=== PATIENT | female | born 1970 | race African-American/Black ===

== ENCOUNTER 2016-05-25 10:11 | Inpatient (IN) | payer MEDICARE, MEDICAID ==
[2016-05-25] MEDS ORDERED: Nitroglycerin 0.4 MG/HR PATCH* (10 MG) TRANSDERM ONE ×2 (10:32→11:10)
[2016-05-25 10:35] LABS: Hematocrit 23 % (35-47); Hemoglobin 7.6 g/dl (12.0-16.0); Mean Corpuscular HGB Conc 34 g/dl (31-36); Mean Corpuscular Hemoglobin 33 pg (27-31); Mean Corpuscular Volume 98 fL (80-97); Mean Platelet Volume 8 um3 (7.4-10.4); Red Blood Count 2.29 10^6/ul (4.0-5.4); Red Cell Distribution Width 16 % (10.5-15); White Blood Count 10.7 10^3/ul (3.5-10.8)
[2016-05-25] MEDS ORDERED: Metoprolol Tartrate IV* 1 MG/ML 5 ML VIAL IV ONE (10:38)
[2016-05-25] MEDS ORDERED: Digoxin IV* 0.5 MG/2 ML AMP (0.25 MG/ML) IV SLOW PU ONE (10:45)
[2016-05-25 10:51] LABS: Albumin 3.7 g/dL (3.2-5.2); BUN/Creatinine Ratio 5.2 (8-20); Calcium 9.2 mg/dL (8.6-10.3); EGFR African American 14.5 (>60); EGFR Non-African American 11.3 (>60); Globulin 3.1 g/dL (2-4); Potassium 3.7 mmol/L (3.5-5.0); Total Bilirubin 0.6 mg/dL (0.2-1.0); Total Protein 6.8 g/dL (6.4-8.9)
[2016-05-25] MEDS ORDERED: Morphine PF AMP (1 MG/ML)* 10 MG/10 ML AMP IV ONE (11:00)
[2016-05-25 11:02] LABS: Troponin I 2.62 ng/mL (<0.04)
[2016-05-25] MEDS ORDERED: Nitroglycerin 2% OINT* 1 GM PAK ONE (11:03)
[2016-05-25] MEDS ORDERED: Morphine INJ* 2 MG/ML 1 ML SYRINGE ONE (11:13)
[2016-05-25] MEDS ORDERED: Morphine INJ* 2 MG/ML 1 ML SYRINGE IV ONE (11:20)
--- NOTE | 2016-05-25 11:37 | RAD ---
INDICATION: Shortness of breath. COMPARISON: Similar chest x-ray dated May 16, 2016 TECHNIQUE: Single AP portable view of the chest was obtained. FINDINGS: Image quality is compromised due to the relative inferiority of a portable chest x-ray. Postoperative findings include sternotomy wires. AED pads are noted on the chest. There is cardiomegaly similar in appearance to the previous chest x-ray. There are bilateral patchy infiltrates. The pulmonary vasculature is indistinct and engorged. Density obscures the left lung base and left hemidiaphragm. Visualized bones are normal for the patient's age. IMPRESSION: Chest x-ray findings are most consistent with cardiogenic pulmonary edema.
[2016-05-25] MEDS ORDERED: Albuterol/Ipratropium NEB.SOL* Albuterol 2.5 MG/Ipratropium 0.5 MG 3 ML INH PRN (12:38)
[2016-05-25] MEDS ORDERED: Metoprolol Tartrate IV* 1 MG/ML 5 ML VIAL IV PRN (12:54)
[2016-05-25] MEDS ORDERED: Famotidine TAB* 20 MG PO ONE (14:00)
[2016-05-25] MEDS: Famotidine TAB* 20 MG PO SCH (15:23)
[2016-05-25] MEDS: Gabapentin CAP(*) 100 MG PO SCH ×2 (15:24→20:59)
[2016-05-25] MEDS: oxyCODONE TAB* 5 MG TAB PO PRN ×2 (15:32→21:22)
[2016-05-25] MEDS: Sevelamer TAB* 800 MG PO SCH ×2 (15:35→20:59)
[2016-05-25] MEDS: Morphine INJ* 2 MG/ML 1 ML SYRINGE IV PRN ×3 (18:26→23:42)
[2016-05-25] MEDS: Heparin VIAL(*) 5000 UNITS/ML VIAL (FIVE THOUSAND) SUBCUT SCH (20:59)
[2016-05-25] MEDS: Nitro Patch/OINT Remove PATCH OFF SCH (21:05)
--- NOTE | 2016-05-26 00:25 | CONS ---
CARDIOLOGY CONSULTATION: DATE OF CONSULT: 05/25/16 REASON FOR CONSULT: Abnormal ECG and congestive heart failure. CHIEF COMPLAINT: Chest pain and shortness of breath. HISTORY OF PRESENT ILLNESS: Ms. 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 The patient was admitted earlier this month with hemoptysis and pulmonary hemorrhage with an INR of 9 with respiratory failure. She required intubation as her INR was reversed and she received antibiotics with improvement. The patient states that she was very thirsty last night and drank a lot of fluids, she started developing chest pain and dyspnea afterwards. She presented for her usual dialysis appointment this morning and was found to be in distress and referred to the emergency room. In the emergency room, she was found to be in atrial fibrillation with a rapid ventricular rate and severe ST depression in the inferolateral leads. A STEMI was called; however, it was not completed as she is not a candidate for anticoagulation. In the emergency room, when I saw the patient, she gave the above history and stated she was still in severe chest pain and very short of breath. In discussion with Dr. Osorio, her weight is up 7 kilos since her last dialysis. PAST MEDICAL HISTORY: Long-standing severe hypertension in the past, difficult to control; end-stage renal disease, on hemodialysis, I believe due to hypertensive heart disease; aortic valve replacement in 2012 for endocarditis; atrial fibrillation, it is now chronic; recurrent DVTs and PEs; recent pulmonary hemorrhage with hemoptysis and respiratory failure, admitted May 14 and discharged May 22; mitral insufficiency; COPD; dyslipidemia; coronary artery disease (myocardial infarction 2001 related to cocaine use); diastolic congestive heart failure; superior vena cava syndrome; anxiety and depression. MEDICATIONS AT DISCHARGE: Included: 1. DuoNeb. 2. Maalox. 3. Vitamin E. 4. Spiriva. 5. Enema p.r.n. 6. Renvela 3 times a day with meals. 7. Sertraline 25 mg a day. 8. Lyrica 50 mg a day. 9. Singulair 10 mg a day. 10. Toprol 12.5 mg a day. 11. Diltiazem CD 240 mg a day. 12. Labetalol 400 mg b.i.d. 13. Amlodipine 10 mg a day. 14. Clonidine 0.3 mg b.i.d. 15. Aspirin 81 mg a day. 16. Reglan 10 mg with meals and h.s. 17. Neurontin 100 mg t.i.d. 18. Colace 100 mg b.i.d. 19. Sensipar 30 mg a day. 20. Dulcolax p.r.n. 21. Tessalon Perles 100 mg b.i.d. p.r.n. 22. Oxycodone 5 mg q.6 hours p.r.n. 23. Guaifenesin 1200 mg b.i.d. 24. Nicotine patch 14 mg to right arm. ALLERGIES: Included IODINATED CONTRAST DYE, LISINOPRIL, PENICILLIN, CEPHALOSPORINS, and PROPOFOL. FAMILY HISTORY: The patient was a foster child. History not able to be obtained today. SOCIAL HISTORY: The patient is a recent smoker. No history of alcohol abuse. I believe distant cocaine abuse in looking at old records. REVIEW OF SYSTEMS: The patient was in respiratory distress, had trouble talking , and I was unable to get a comprehensive review of systems, but developed chest pain and dyspnea last night. She states she did not know what to do. She was scared, did not want to be readmitted to the hospital. PHYSICAL EXAM: The patient is a middle-aged woman with a non-rebreather mask in obvious distress. She is sitting bolt upright, appears anxious, very tachypneic and appears uncomfortable. She is 5 feet 9 inches and weighs 180 pounds. Vitals: On arrival to the ER, blood pressure 107/74, AFib with pulse of 148 beats a minute, oxygen saturation 100% on non-breather mask, temperature 98.3. HEENT: Mucous membranes appeared moist through the mask. Neck a bit thick, I did not appreciate increased JVP, but using accessory muscles and probably inaccurate. Breath sounds diminished with coarse rales versus rhonchi throughout. Coronary: Tachycardiac with summation gallop and systolic murmur heard in the left sternal border. Abdomen: Nontender and soft. Lower extremities are free of edema. Fistula not checked. DIAGNOSTIC STUDIES/LAB DATA: The patient's chest x-ray showed marked congestive heart failure/pulmonary edema, very fluffy. The patient's 12-lead ECG showed atrial fibrillation with a rapid ventricular rate of 148 beats a minute with severe ST depressions in the inferior and lateral leads, poor R wave progression across the precordial leads, and when this was compared with her recent EKG of 05/14/16, the atrial fibrillation was present, but the rate has increased from 86 beats a minute and the ST depression is new. The patient's echocardiogram from 05/14/16 was limited. She had severe left ventricular hypertrophy with an ejection fraction of 60% to 65%. Moderate mitral insufficiency with mild mitral stenosis, bioprosthetic aortic valve with high velocities with possible aortic valve stenosis versus valve mismatch (mean gradient 46 mmHg). Peak velocity across the aortic valve 4.3 meters per second. Dimensionless index close to 0.25. The right ventricular systolic function was mildly reduced. When this EKG was compared with her ECG a year ago , 05/20/15. The bioprosthetic aortic valve was functioning normally with a mean gradient of 28 mmHg. Peak velocity across the aortic valve was 3.5 meters per second. Labs showed white count of 10.7, hemoglobin 7.6, hematocrit 23 (hematocrit May 20 was 25), platelets 195. INR 0.98, PTT 66. Sodium 136, potassium 3.7, chloride 90, bicarb 38, BUN 22, creatinine 4.26, glucose 105, ALT of 11. CPK of 132, MB 7.3. Troponin 2.62 (increased from 0.05 on May 14). BNP of 2786 (increased from 1888 May 14). LDL cholesterol 97. ASSESSMENT AND PLAN: In summary, Juany Joseph is an unfortunate 45-year-old woman with complex medical history presenting with chest pain, dyspnea, in congestive heart failure with atrial fibrillation and rapid ventricular rate, and ECG evidence of ischemia that is a new compared with her ECG of 11 days ago. Her congestive heart failure is likely multifactoria, based on Dr. Osorio's weight, volume overload is a component. Her tachycardia is likely contributing and leading to diastolic and high output congestive heart failure. There appears to be an element of acute ischemia either on the basis of underlying atherosclerotic heart disease, but additionally poor or diminished cardiac output from para-aortic stenosis and aortic valve dysfunction could also contribute or be the entire cause. Congestive heart failure itself or an LV strain could lead to the ECG changes seen. In the ER, she received IV beta clara for rate control and ischemia, which did lead to improvement of heart rate and significant improvement in respiratory distress and pain. I would like the beta clara down to 100 if able. I concur that preload reduction with nitrates may help her symptomatically, and provided her with some low-dose morphine, which may also help with preload reduction in addition to pain control. Dr. Osorio is planning on dialyzing for volume overload. I agree with the interventionalist that she is not a candidate for acute intervention as anticoagulants are contraindicated based on her recent admission with hemoptysis and respiratory failure. For now, we will plan on aggressive beta-blockade preload reduction for symptomatic relief. If her blood pressures remain low, then medications to consider backing off on would be Cardizem and her amlodipine. As BP tolerates I would like to keep her labetalol and clonidine on as these lead to rebound, but alternatively, we could be more aggressive with pure beta clara and decrease these agents. Overall, Ms. Joseph is an extremely high-risk patient with her many medical issues. In terms of her atrial fibrillation and anticoagulation, as above, she is not a candidate despite her chronic AFib and history of DVTs and PEs in the past. I would leave it to the electromyographic technician to decide if reevaluation for pulmonary embolus is indicated and potential need for [place] filters. CC: Dr. Franck Osorio; Intensive Care Unit* [id number]/[facility] #: [id number] MTDD
--- NOTE | 2016-05-26 01:38 | HP ---
ADMISSION HISTORY AND PHYSICAL: DATE OF ADMISSION: 05/25/16 REASON FOR ADMISSION: Shortness of breath. HISTORY OF PRESENT ILLNESS: This patient is a 45-year-old dialysis patient who is well-known to this hospital (with numerous prior admissions), who was most recently discharged from the hospital 3 days ago following an admission for hemoptysis. Now returns with increasing shortness of breath and chest pain ( substernal and positional), with a chest x-ray showing pulmonary edema. The patient states she has been drinking a lot of water because of a dry mouth, and has gained 7 kg since discharge. This patient has multiple medical problems in addition to the end-stage renal disease; these include, hypertension, atrial fibrillation, venous thromboembolism, COPD, and is s/p both mitral and aortic valve repair. Patient was seen by Cardiology service in the emergency department because of rapid Afib (160 bpm), a low BP, and an ECG that showed ST depression across the precordium (probably from LVH). Heart rate was controlled with low-dose beta blockers and digitalis. OUTPATIENT MEDICATIONS: The patient is on numerous medications, includin. Metoprolol succinate 12.5 mg daily. 2. Labetalol 400 mg twice daily. 3. Clonidine 0.3 mg twice daily. 4. Amlodipine 10 mg daily. 5. DuoNebs 3 cc every 6 hours as needed. 6. Spiriva 1 capsule daily. 7. Renvela 4800 mg 3 times a day with meals. 8. Sertraline 25 mg daily. 9. Lyrica 50 mg at bedtime. 10. Singulair 10 mg daily. 11. Reglan 10 mg at bedtime and with meals. 12. Gabapentin 100 mg 3 times daily. 13. Diltiazem CD 240 mg daily. 14. Sensipar 30 mg daily. 15. Aspirin 81 mg daily. 16. Guaifenesin 1200 mg twice daily. 17. Nicotine patch 14 mg to the right arm daily. REVIEW OF SYSTEMS: Noncontributory. PHYSICAL EXAMINATION GENERAL APPEARANCE: The patient is breathing comfortably on oxygen by facemask with pulse ox saturation of 96%. VITAL SIGNS: Temp 97.7, heart rate 110, blood pressure 99/67, respirations 24 and nonlabored. HEENT: Oropharynx clear. NECK: Supple. No jugular venous distention. LUNGS: Thorax: Breath sounds distant, but bilateral crackles noted. No wheezes. CARDIAC: Both systolic and diastolic murmurs heard, but no friction rub. ABDOMEN: Not distended and nontender. EXTREMITIES: No cyanosis, 2+ edema in both legs. ADMISSION LABORATORY DATA: Hemoglobin 7.6, white count 10.7, platelets 195K. BUN 22, creatinine 4.26, troponin 2.62. CK-MB 7.3. BNP 2786. Lactic acid 1.6. Liver enzymes and bilirubin normal as was the sodium and potassium. INR was 0.98 and PTT was 66.3. Chest x-ray showed marked cardiomegaly with bilateral effusions consistent with pulmonary edema. EKG showed atrial fibrillation with a rapid ventricular rate. IMPRESSION: Acute pulmonary edema secondary to poor patient compliance with fluid restriction, combined with rapid AFIB. Chest pain could indicate an underlying pericarditis, but no evicdence for this on physical exam. MANAGEMENT: The patient will be dialyzed immediately after admission, and metoprolol will be used for heart rate control. Will obtain a cardiac ECHO to r /o pericarditis. The antihypertensive medications will not be given today because of the soft blood pressure. TIME SPENT: Critical care time for this patient: 60 minutes. [id number]/[facility] #: [id number] SHI
[2016-05-26] MEDS: Metoprolol Tartrate IV* 1 MG/ML 5 ML VIAL IV PRN ×3 (01:56→13:27)
[2016-05-26] MEDS: oxyCODONE TAB* 5 MG TAB PO PRN ×2 (01:57→18:20)
[2016-05-26] MEDS: Morphine INJ* 2 MG/ML 1 ML SYRINGE IV PRN ×5 (05:31→21:36)
[2016-05-26 06:02] LABS: Hematocrit 23 % (35-47); Hemoglobin 7.5 g/dl (12.0-16.0); Mean Corpuscular HGB Conc 33 g/dl (31-36); Mean Corpuscular Hemoglobin 33 pg (27-31); Mean Corpuscular Volume 98 fL (80-97); Mean Platelet Volume 8 um3 (7.4-10.4); Red Cell Distribution Width 15 % (10.5-15); White Blood Count 6.5 10^3/ul (3.5-10.8)
[2016-05-26 06:15] LABS: BUN/Creatinine Ratio 4.8 (8-20); Calcium 9.5 mg/dL (8.6-10.3); EGFR African American 10.5 (>60); EGFR Non-African American 8.2 (>60)
--- NOTE | 2016-05-26 08:09 | ED ---
Saira Greenwood SooYoung, scribed for Malik Egan MD on 05/25/16 at 1054 . HPI Chest Pain - HPI Summary HPI Summary: A 45 y/o F ASPEN presents to ED with c/c hypotension during dialysis [employer]. According to EMS, pt had CP onset this AM, SOB, and was overloaded with fluid. He notes that at dialysis, they took 2L out. She was hypotensive, tachy ( between 140-160 bpm) on way to ED. In ED, pt is unable to stop shaking, "twitching." She states she hurts all over. Pt was given aspirin [employer]. Pret PMhx : [place], CABG at [facility]. - History of Current Complaint Chief Complaint: EDChestPainROMI Time Seen by Provider: 05/25/16 10:31 Hx Obtained From: Patient, EMS, Medical Records Onset/Duration: Still Present Timing: Constant Current Severity: Severe Pain Intensity: 10 Pain Scale Used: 0-10 Numeric Associated Signs and Symptoms: Positive: Shortness of Breath, Edema - diffuse, Other: - shaking - Additional Pertinent History Primary Care Physician: CORINNA - Allergy/Home Medications Allergies/Adverse Reactions: Allergies Allergy/AdvReac Type Severity Reaction Status Date / Time Iodixanol [From Visipaque] Allergy Severe Airway Verified 01/19/16 12:59 Obstruction Lisinopril Allergy Severe Difficulty Verified 01/19/16 12:59 Breathing Penicillins Allergy Severe HIVES,SWELLING Verified 01/19/16 12:59 THROAT Cephalosporins Allergy not Verified 01/19/16 12:59 specified PMH/Surg Hx/FS Hx/Imm Hx Previously Healthy: No Endocrine/Hematology History: Reports: Hx Anticoagulant Therapy, Hx Blood Transfusions, Hx Unexplained Bleeding Denies: Hx Blood Disorders, Hx Bone Marrow Disease, Hx Diabetes, Hx Systemic Lupus Erythematosus, Hx Sickle Cell Disease, Hx Thyroid Disease, Hx Anemia, Other Endocrine/Hematological Disorders Cardiovascular History: Reports: Hx Cardiomegaly, Hx Congestive Heart Failure, Hx Coronary Artery Disease, Hx Deep Vein Thrombosis, Hx Hypercholesterolemia, Hx Hypertension, Hx Valvular Heart Disease, Other Cardiovascular Problems/ Disorders - 2 artificial heart valves; Hx of endocarditis Denies: Hx Aneurysm, Hx Angina, Hx Angioplasty, Hx Auto Implanted Cardiovert Defib, Hx Cardiac Arrest, Hx Congenital Heart Disease, Hx Embolism, Hx Hypotension, Hx Pacemaker/ICD, Hx Peripheral Vascular Disease, Hx Rheumatic Fever, Hx Syncope Respiratory History: Reports: Hx Asthma, Hx Chronic Obstructive Pulmonary Disease (COPD), Hx Pneumonia, Hx Pulmonary Edema, Hx Pulmonary Embolism, Other Respiratory Problems/Disorders - PULMONARY EDEMA Denies: Hx Chronic Bronchitis, Hx Cystic Fibrosis, Hx Lung Cancer, Hx Pleural Effusion, Hx Seasonal Allergies, Hx Sleep Apnea History: Reports: Hx Chronic Renal Failure, Hx Dialysis - ESRD, [place] ON // FRI, Hx Renal Disease Denies: Hx Benign Prostatic Hyperplasia, Hx Kidney Infection, Hx Kidney Stones, Other Problems/Disorders Musculoskeletal History: Reports: Hx Arthritis Denies: Hx Back Problems, Hx Bursitis, Hx Congenital Bone Abnormalities, Hx Fibromyalgia, Hx Gout, Hx Orthopedic Injury, Hx Osteoporosis, Hx Scoliosis, Hx Tendonitis, Other Musculoskeletal History Sensory History: Reports: Hx Contacts or Glasses - glasses are at home Denies: Hx Hearing Aid Opthamlomology History: Reports: Hx Contacts or Glasses - glasses are at home Neurological History: Denies: Hx Seizures Psychiatric History: Reports: Hx Anxiety, Hx Depression Denies: Hx Attention Deficit Hyperactivity Disorder, Hx Eating Disorder, Hx Panic Disorder, Hx Post Traumatic Stress Disorder, Hx Inpatient Treatment, Hx Community Mental Health Tx, Hx Schizophrenia, Hx Bipolar Disorder, Hx Suicide Attempt, Hx of Violent Episodes Against Others, Hx Substance Abuse, Other Psychiatric Issues/Disorders - Surgical History Surgery Procedure, Year, and Place: bilateral knees, dialysis tube placed in abdomen( out), fistula tube placement in arm for dialysis Lt arm has been revised. waiting out ok to use [id number], open heart valve replacement, hysterectomy Hx Anesthesia Reactions: No - Immunization History Date of Tetanus Vaccine: Unk Date of Influenza Vaccine: Unk Infectious Disease History: No Infectious Disease History: Reports: Hx of Known/Suspected MRSA - Negative this visit Denies: Hx Clostridium Difficile, Hx Hepatitis, Hx Human Immunodeficiency Virus (HIV), Hx Shingles, Hx Tuberculosis, Hx Known/Suspected VRE, Traveled Outside the [place] in Last 30 Days - Family History Known Family History: Positive: None - no malignant hyperthermia. no anesthesia rxn. Family History: No FHx of malignant hyperthermia or anesthesia reaction. - Social History Occupation: Disabled Lives: With Family Alcohol Use: Rare Hx Substance Use: No Substance Use Type: Reports: None Hx Tobacco Use: Yes Smoking Status (MU): Former Smoker Type: Cigarettes Amount Used/How Often: 1/2 PPD Length of Time of Smoking/Using Tobacco: 15 Have You Smoked in the Last Year: Yes Review of Systems Negative: Fever, Chills Negative: Erythema Negative: Sore Throat Positive: Chest Pain Positive: Shortness Of Breath. Negative: Cough Negative: Abdominal Pain, Vomiting, Nausea Negative: dysuria, hematuria Positive: Edema. Negative: Myalgia Negative: Rash Neurological: Other - neg: dizziness All Other Systems Reviewed And Are Negative: Yes Physical Exam - Summary Physical Exam Summary: General: DISTRESSED Cardiovascular: Skin is well perfused Pulmonary: MILD RESPIRATORY DISTRESS, TACHYPNEA, RALES AT BASE OF LUNGS Abdomen: Non-distended Skin: Warm, pink, dry Psych: Normal affect Neuro: A&Ox3 Triage Information Reviewed: Yes Vital Signs On Initial Exam: Initial Vitals Temp Pulse Resp BP Pulse Ox 98.3 F 120 23 107/74 100 05/25/16 10:17 05/25/16 10:17 05/25/16 10:17 05/25/16 10:17 05/25/16 10:17 Vital Signs Reviewed: Yes Diagnostics - Vital Signs Vital Signs Temp Pulse Resp BP Pulse Ox 05/25/16 10:17 98.3 F 120 23 107/74 100 - Laboratory Lab Results: Lab Results 05/25/16 05/25/16 Range/Units 10:25 10:25 WBC 10.7 (3.5-10.8) 10^3/ul RBC 2.29 L (4.0-5.4) 10^6/ul Hgb 7.6 L (12.0-16.0) g/dl Hct 23 L (35-47) % MCV 98 H (80-97) fL MCH 33 H (27-31) pg MCHC 34 (31-36) g/dl RDW 16 H (10.5-15) % Plt Count 195 (150-450) 10^3/ul MPV 8 (7.4-10.4) um3 Neut % (Auto) 77.2 (38-83) % Lymph % (Auto) 9.4 L (25-47) % [place] % (Auto) 11.1 H (1-9) % Eos % (Auto) 1.3 (0-6) % Baso % (Auto) 1.0 (0-2) % Absolute Neuts (auto) 8.3 H (1.5-7.7) 10^3/ul Absolute Lymphs (auto) 1.0 (1.0-4.8) 10^3/ul Absolute Monos (auto) 1.2 H (0-0.8) 10^3/ul Absolute Eos (auto) 0.1 (0-0.6) 10^3/ul Absolute Basos (auto) 0.1 (0-0.2) 10^3/ul Absolute Nucleated RBC 0 10^3/ul Nucleated RBC % 0 INR (Anticoag Therapy) 0.98 (0.89-1.11) APTT 66.3 H (26.0-36.3) seconds Result Diagrams: 05/26/16 05:54 05/26/16 05:54 Lab Statement: Any lab studies that have been ordered have been reviewed, and results considered in the medical decision making process. - Radiology CXR Xray Interpretation: Positive (See Comments) - Cardiomegaly, diffuse pulmonary edema Radiology Interpretation Completed By: Radiologist - Additional Comments Diagnostic Additional Comments: EKG: STEMI; ST deep depression in V4, V5, V6; depression in inferior leads; ST elevation in AVR Chest Pain Course/Dx - Course Course Of Treatment: STEMI called at 1020. No respiratory distress to indicate need for emergent intubation. Per interventional cardiology, can not be stented due to inability for dual platelet therapy/recent pulmonary hemorrhage requiring intubation previously. Cardiology immediately available at bedside - Diagnoses Provider Diagnoses: STEMI (ST elevation myocardial infarction), Fluid overload, Atrial fibrillation with rapid ventricular response, End stage renal disease During the Visit The Following Alert/Code Occurred: STEMI - called at 1020 - Provider Notifications Discussed Care Of Patient With: Dr. Capone, cardiology: Pt cannot be on dual anti-platelet therapy. Dr. Horvath, cardiology: Recommends Digoxin and Lopressor. 1048: Dr. Osorio, nephrology: Recommend emergent dialysis for fluid overload. Dr. Horvath: Discussing pt with Dr. Brown, ICU. No respiratory distress to indicate need for emergent intubation. Instructed by Provider To: Admit As Inpatient - Critical Care Time Critical Care Time: 30-74 min - 45 mins Discharge - Discharge Plan Condition: Critical Disposition: ADMITTED TO [facility] documentation as recorded by the Saira sosa SooYoung accurately reflects the service I personally performed and the decisions made by me, Malik Egan MD.
[2016-05-26] MEDS: Heparin VIAL(*) 5000 UNITS/ML VIAL (FIVE THOUSAND) SUBCUT SCH ×2 (09:47→21:36)
[2016-05-26] MEDS: Montelukast Sodium TAB* 10 MG PO SCH (09:52)
[2016-05-26] MEDS: Cinacalcet TAB* 30 MG PO SCH (09:52)
[2016-05-26] MEDS: Diltiazem CD CAP* 240 MG PO SCH (09:52)
[2016-05-26] MEDS: Sertraline* 25 MG TAB PO SCH (09:52)
[2016-05-26] MEDS: Famotidine TAB* 20 MG PO SCH (09:52)
[2016-05-26] MEDS: Aspirin EC Low Dose* 81 MG TAB.EC PO SCH (09:52)
[2016-05-26] MEDS: Gabapentin CAP(*) 100 MG PO SCH ×3 (09:52→21:36)
[2016-05-26] MEDS: Sevelamer TAB* 800 MG PO SCH ×2 (09:57→12:57)
[2016-05-26] MEDS: Labetalol TAB* 200 MG PO SCH ×2 (11:22→21:35)
--- NOTE | 2016-05-26 12:09 | PN ---
Subjective Date of Service: 05/26/16 - CC: chest pain and short of breath. Interval History: Pt sleeping, per nurse and Dr. Bette Brown, positional CP, increases lying down, persists. Breathing has improved (s/p dialysis, rate control). Medications Active Medications: Albuterol/Ipratropium (Duoneb Neb.Tonya*) 1 neb INH Q6H PRN PRN Reason: SOB/WHEEZING Amlodipine Besylate (Norvasc Tab*) 10 mg PO DAILY [facility] Aspirin (Aspirin Ec Low Dose*) 81 mg PO DAILY [facility] Last Admin: 05/26/16 09:52 Dose: 81 mg Cinacalcet (Sensipar Tab*) 30 mg PO DAILY [facility] Last Admin: 05/26/16 09:52 Dose: 30 mg Clonidine HCl (Catapres Tab*) 0.3 mg PO TID [facility] Diltiazem HCl (Cardizem Cd Cap*) 240 mg PO DAILY [facility] Last Admin: 05/26/16 09:52 Dose: 240 mg Famotidine (Pepcid Tab*) 20 mg PO DAILY [facility] Last Admin: 05/26/16 09:52 Dose: 20 mg Gabapentin (Neurontin Cap(*)) 100 mg PO TID [facility] Last Admin: 05/26/16 09:52 Dose: 100 mg Heparin Sodium (Porcine) (Heparin Vial(*)) 5,000 units SUBCUT Q12HR [facility] Last Admin: 05/26/16 09:47 Dose: 5,000 units Labetalol HCl (Trandate Tab*) 400 mg PO BID [facility] Last Admin: 05/26/16 11:22 Dose: 400 mg Metoprolol Succinate (Toprol Xl Tab*) 12.5 mg PO DAILY [facility] Metoprolol Tartrate (Lopressor Iv*) 5 mg IV Q4H PRN PRN Reason: HEART RATE/PULSE Last Admin: 05/26/16 05:30 Dose: 5 mg Montelukast Sodium (Singulair Tab*) 10 mg PO DAILY [facility] Last Admin: 05/26/16 09:52 Dose: 10 mg Morphine Sulfate (Morphine Inj (Syringe)*) 2 mg IV Q1H PRN PRN Reason: PAIN Oxycodone HCl (Roxycodone Tab*) 5 mg PO Q6H PRN PRN Reason: PAIN - CHEST Last Admin: 05/26/16 01:57 Dose: 5 mg Pharmacy Profile Note (Nitro Patch/Oint Remove*) 1 note PATCH OFF DAILY@2200 [facility] Last Admin: 05/25/16 21:05 Dose: 1 note Sertraline HCl (Zoloft*) 25 mg PO DAILY [facility] Last Admin: 05/26/16 09:52 Dose: 25 mg Sevelamer Carbonate (Renvela Tab*) 4,800 mg PO TID [facility] Last Admin: 05/26/16 09:57 Dose: 4,800 mg Objective Vital Signs: Temp Pulse Resp BP Pulse Ox 97.8 F 119 16 133/108 97 05/26/16 11:29 05/26/16 11:00 05/26/16 11:40 05/26/16 10:00 05/26/16 11:00 Oxygen Devices in Use Now: Nasal Cannula Eyes: PERRLA Ears/Nose/Mouth/Throat: Clear Oropharnyx Neck: Trachea Midline Respiratory: Clear to Auscultation Cardiovascular: - - tachycardic, jan, systolic murmer. Abdominal: - - active BS, soft. Extremities: No Edema Neurological: NL Muscle Strength and Tone Laboratory Results: 05/26/16 05:54 05/26/16 05:54 INR (Anticoag Therapy) 0.98 (0.89-1.11) 05/25/16 10:25 APTT 66.3 seconds (26.0-36.3) H 05/25/16 10:25 Total Bilirubin 0.60 mg/dL (0.2-1.0) 05/25/16 10:25 AST 23 U/L (13-39) 05/25/16 10:25 ALT 11 U/L (7-52) 05/25/16 10:25 Alkaline Phosphatase 60 U/L (34-104) 05/25/16 10:25 CK-MB (CK-2) 7.3 ng/mL (0.6-6.3) H 05/25/16 10:25 B-Natriuretic Peptide 2786 pg/mL (-100) H 05/25/16 10:25 Total Protein 6.8 g/dL (6.4-8.9) 05/25/16 10:25 Albumin 3.7 g/dL (3.2-5.2) 05/25/16 10:25 Globulin 3.1 g/dL (2-4) 05/25/16 10:25 Albumin/Globulin Ratio 1.2 (1-3) 05/25/16 10:25 Diagnostic Imaging: No new imaging today. EKG Data: Monitor: afib, rates 120's. Assessment/Plan 45 yo female, complex and extensive PMHx including ESRD on HD (HTN), chronic afib, AVR, severe LVH with EF 65% and diastolic dysfunction, recent hemoptosis, resp failure with elevated INR, distant Hx DVT's and PE's who presented with CP SOB in decomensated CHF, volume overloaded based on weights, tachycardic and hypotensive. ECG showed severe ST depression and Trop's mildly elevated. Today with dialysis yesterday, rate control with beta clara her dyspnea and BP have improved, CP persists. Points of Discussion: CP and ECG changes: Update ECG, trops, I ordered. Continue with medical management, not an interventional candidate: beta clara , goal of rate below 100 bpm. Positional CP: Differential of pericarditis, CHF, COPD, GERD, musc. skel. and more. Consider limited echo for PC effusion, check ESR/CRP. Volume overload: via renal. CHF: at risk for diastolic CHF, rate control as above, anemia can contribute to high output/diastolic CHF as well.
[2016-05-26] MEDS: cloNIDine TAB* 0.1 MG PO SCH ×2 (12:57→21:35)
--- NOTE | 2016-05-26 13:30 | PN ---
Critical Care Services: Breathing more comfortably but continues to complain of chest pain - worse when lying flat. Vital Signs: Temp Pulse Resp BP SpO2 FiO2 97.8 F 108 20 120/83 96 100 Physical Exam: Gen:Alert, oriented, and breathing comfortably Lungs:Crackles both bases. Cardiac: Systolic and diastolic murmurs (2+), but no friction rub. Extremities: Warm. 2+edema. Fluid Balance (Past 24 Hours): 05/26/16 06:59 Intake Total 470 Balance 470 Weight 188 lb Intake: Oral 470 Other: Estimated Void Date of Last Bowel Movement # Bowel Movements Estimated Stool Amount # Voids NOTE: Dialysis yesterday removed about 3 liters. Labs: 05/26/16 05/26/16 05/26/16 05:54 05:54 12:44 WBC 6.5 Hgb 7.5 Hct 23 Plt Count 187 Sodium 134 Potassium 4.0 Chloride 91 Carbon Dioxide 37 BUN 27 Creatinine 5.63 Glucose 106 Calcium 9.5 Troponin I 16.21 Studies: Repeat ECG - less ST depression than prior ECG. Nutrition: Oral diet Impression: Continuing chest pain with rising troponins suggest an acute coronary syndrome. Plan: 1. Aggressive control of chest pain (with morphine) and heart rate (with metoprolol). Patient is on ASA, but is not a candidate for anticoagulation ( because of recent hemoptysis) or coronary intervention (per cardiology service) . 2. Restart antihypertensive Rx (clonidine, metoprolol, labetalol, amlodipine). Critical Care Time: 40 minutes
[2016-05-26] MEDS: Benzocaine/Menthol LOZ* 1 LOZENGE MT PRN (19:07)
[2016-05-27] MEDS: Nitro Patch/OINT Remove PATCH OFF SCH ×2 (05:53→21:30)
[2016-05-27 05:55] LABS: Comments Flag Yes; Hematocrit 20 % (35-47); Hemoglobin 6.7 g/dl (12.0-16.0); Mean Corpuscular HGB Conc 33 g/dl (31-36); Mean Corpuscular Hemoglobin 33 pg (27-31); Mean Corpuscular Volume 98 fL (80-97); Mean Platelet Volume 8 um3 (7.4-10.4); Red Blood Count 2.05 10^6/ul (4.0-5.4); Red Cell Distribution Width 15 % (10.5-15); White Blood Count 6.7 10^3/ul (3.5-10.8)
[2016-05-27 06:09] LABS: BUN/Creatinine Ratio 5.1 (8-20); Calcium 9.1 mg/dL (8.6-10.3); EGFR African American 6.9 (>60); EGFR Non-African American 5.4 (>60); Potassium 4.5 mmol/L (3.5-5.0)
[2016-05-27 06:21] LABS: Troponin I 11.72 ng/mL (<0.04)
[2016-05-27] MEDS: Benzocaine/Menthol LOZ* 1 LOZENGE MT PRN (06:34)
[2016-05-27] MEDS: Morphine INJ* 2 MG/ML 1 ML SYRINGE IV PRN ×5 (06:35→21:15)
[2016-05-27] MEDS: Sevelamer TAB* 800 MG PO SCH ×3 (06:35→17:03)
--- NOTE | 2016-05-27 08:05 | RAD ---
INDICATION: CHF. Short of breath. COMPARISON: May 25, 2016 TECHNIQUE: An AP portable view obtained at 0610 hours is submitted. FINDINGS: Bones/Soft Tissues: There are no acute bony findings. There is sternotomy Cardiomediastinal: The cardiomediastinal enlarged. The central pulmonary vessels and interstitium are prominent compatible with interstitial congestion. There is no appreciable change. Lungs: There are no infiltrates. Pleura: Small left-sided effusion. Other: None IMPRESSION: VASCULAR CONGESTION WITHOUT SIGNIFICANT INTERVAL CHANGE.
[2016-05-27] MEDS ORDERED: Metoprolol Succinate XL TAB* 25 MG PO SCH (09:00)
[2016-05-27] MEDS: Labetalol TAB* 200 MG PO SCH (10:53)
[2016-05-27] MEDS: amLODIPine TAB* 5 MG PO SCH ×2 (10:54→11:58)
[2016-05-27] MEDS ORDERED: Epoetin Alfa* 20,000 UNITS/ML VIAL - TWENTY THOUSAND - SUBCUT ONE (11:00)
[2016-05-27] MEDS ORDERED: Heparin DIALYSIS ONLY(*) 1,000 UNITS/ML VIAL ONE (11:00)
--- NOTE | 2016-05-27 11:04 | PN ---
Critical Care Services: Patient with probable nonSTEMI - Chest pain now controlled on intermittent morphine. Troponins decreasing, and repeat ECG shows less ST depression. Is hemodynamically stable and tolerating dialysis. Vital Signs: Temp Pulse Resp BP SpO2 FiO2 98.4 F 82 14 130/75 95 100 Physical Exam: Gen:Awake and oriented. Complaining of mouth discomfort (since prior intubation) HEENT:No lesions on tongue or oropharynx Lungs: crackles both bases bilaterally. No wheezes Cardiac: Murmurs as noted previously, and no friction rub. Extremities: Warm., 1-2+ edema. Fluid Balance (Past 24 Hours): 05/27/16 06:59 Intake Total 1350 Output Total 0 Balance 1350 Weight 186 lb Intake: Oral 1350 Output: Urine 0 Other: Estimated Void Small Date of Last Bowel 05/26/2016 Movement # Bowel Movements 1 Estimated Stool Amount Small # Voids 1 Note: Output does not include fluid lost via dialysis. Labs: 05/26/16 05/27/16 05/27/16 12:44 05:40 05:40 WBC 6.7 Hgb 6.7 Hct 20 Plt Count 155 Sodium 133 Potassium 4.5 Chloride 91 L Carbon Dioxide 35 H Anion Gap 7 BUN 41 Creatinine 8.08 Glucose 105 H Calcium 9.1 Troponin I 16.21 11.72 Studies: CXR - Improvement in pulmonary edema when compared to film from 05/25/2016 Nutrition: Oral diet Impression: Probable acute coronary syndrome, with clinical improvement. Patient is not a candidate for coronary intervention because anticoagulation is contraindicated ( due to recent hemoptysis). Plan: 1. Start statin Rx 2. Cardiac ECHO 3. Repeat serum Hb after dialysis and transfuse if Hb < 7 g/dL.
[2016-05-27] MEDS: Aspirin EC Low Dose* 81 MG TAB.EC PO SCH (11:13)
[2016-05-27] MEDS: cloNIDine TAB* 0.1 MG PO SCH ×3 (11:13→21:21)
[2016-05-27] MEDS: Diltiazem CD CAP* 240 MG PO SCH (11:13)
[2016-05-27] MEDS: Sertraline* 25 MG TAB PO SCH (11:13)
[2016-05-27] MEDS: Gabapentin CAP(*) 100 MG PO SCH ×3 (11:13→21:21)
[2016-05-27] MEDS: Famotidine TAB* 20 MG PO SCH (11:13)
[2016-05-27] MEDS: Montelukast Sodium TAB* 10 MG PO SCH (11:13)
[2016-05-27] MEDS: Heparin VIAL(*) 5000 UNITS/ML VIAL (FIVE THOUSAND) SUBCUT SCH ×2 (11:14→21:22)
[2016-05-27] MEDS: Cinacalcet TAB* 30 MG PO SCH (11:20)
[2016-05-27] MEDS ORDERED: Epoetin Alfa* 3,000 UNITS/ML VIAL IV ONE (12:00)
[2016-05-27] MEDS ORDERED: Epoetin Alfa* 2,000 UNITS/ML VIAL IV ONE (12:00)
[2016-05-27] MEDS ORDERED: Epoetin Alfa* 10,000 UNITS/ML VIAL IV ONE (12:00)
[2016-05-27 12:41] LABS: Hematocrit 21 % (35-47); Hemoglobin 6.9 g/dl (12.0-16.0); Mean Corpuscular HGB Conc 34 g/dl (31-36); Mean Corpuscular Hemoglobin 33 pg (27-31); Mean Corpuscular Volume 97 fL (80-97); Mean Platelet Volume 7 um3 (7.4-10.4); Red Blood Count 2.11 10^6/ul (4.0-5.4); Red Cell Distribution Width 15 % (10.5-15); White Blood Count 5.9 10^3/ul (3.5-10.8)
[2016-05-27 12:48] LABS: Comments Flag Yes
--- NOTE | 2016-05-27 13:19 | ECHO ---
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 Technical Comments: The study quality is good. Completed at 1150. Left Ventricle: The left ventricular chamber size is normal. Severe concentric left ventricular hypertrophy is observed. Global left ventricular wall motion and contractility are within normal limits. The estimated ejection fraction is 50-55%. The assessment of diastolic function is non-diagnostic. Left Atrium: The left atrium is moderate to severely dilated. Right Ventricle: The right ventricular cavity size is normal. The right ventricular global systolic function is normal. Right Atrium: The right atrium is moderate to severely dilated. Aortic Valve: There is mild aortic regurgitation. The mean gradient of the aortic valve is 54.16 mmHg. The aortic valve area, by VTI's, is calculated at 1 cm2. The highest aortic valve velocity was obtained with the standard probe from the A3C view. A porcine bio-prosthetic aortic valve is present. The prosthetic aortic valve leaflets are thickened. The bio-prosthetic aortic valve appears stenotic. Mitral Valve: There is mitral annular calcification. The mitral valve leaflets are mildly thickened. There is moderate mitral regurgitation. There is no evidence of mitral stenosis. Tricuspid Valve: The tricuspid valve leaflets are normal. There is moderate to severe tricuspid regurgitation. The tricuspid regurgitant jet is extending to dome (back wall of RA). There is evidence of mild to moderate pulmonary hypertension. There is no tricuspid stenosis. Pulmonic Valve: The pulmonic valve appears normal. There is mild pulmonic regurgitation. There is no pulmonic stenosis. Pericardium: The pericardium appears normal. Aorta: There is mild dilatation of the ascending aorta. There is no dilatation of the aortic arch. There is mild dilatation of the aortic root. Pulmonary Artery: The main pulmonary artery appears normal. Venous: The inferior vena cava is dilated. There is less than 50% respiratory change in the inferior vena cava dimension. Conclusions Severe concentric left ventricular hypertrophy is observed. Global left ventricular wall motion and contractility are within normal limits. The estimated ejection fraction is 50-55%. The right ventricular global systolic function is normal. A porcine bio-prosthetic aortic valve is present. The prosthetic aortic valve leaflets are thickened. There is mild aortic regurgitation. The bio-prosthetic aortic valve appears stenotic and additionally there is probably an element of valve mismatch: mean gradient 54.16 mmHg, GONZALEZ by VTI's, is calculated at 1 cm2. DI 0.32, Acceleration time: 1.5 ms. There is MV sclerosis with moderate mitral regurgitation. There is moderate to severe tricuspid regurgitation. There is evidence of mild to moderate pulmonary hypertension: 48 mHg. The pericardium appears normal. No significant changes c/w echo of 05/14/16. Measurements Name Value Normal Range RVIDd (AP) 2D 3.6 cm (0.9 - 2.6) RVDdMajor (2D) 3.3 cm (2.2 - 4.4) RAd ISD 4CH 7.8 cm (3.4 - 4.9) RA (A4C)W 5 cm (2.9 - 4.6) IVSd (2D) 2.3 cm (0.6 - 1) LVPWd (2D) 2.1 cm (0.6 - 1) LVIDd (2D) 4.1 cm (3.6 - 5.4) LVIDs (2D) 2.8 cm - LV FS (2D) 33 % (25 - 45) Aortic Annulus 2.2 cm (1.4 - 2.6) Ao root diameter (2D) 3.8 cm (2.1 - 3.5) Ascending Ao 3.6 cm (2.1 - 3.4) Aortic arch 2.3 cm (1.8 - 3.4) Descending Ao 1.4 cm - LA dimension (AP) 2D 6.5 cm (2.3 - 3.8) LAd ISD 4CH 8.8 cm (2.9 - 5.3) LA ISD 4CH W 7.1 cm (2.5 - 4.5) Name Value Normal Range LA ESV SP 4CH (A/L) 223 ml - LA ESV SP 2CH (A/L) 280 ml - LA ESV BP (A/L) 253 ml - LA ESV BP (A/L) index 125.78 ml/m2 - LA ESV SP 4CH (MOD) 215 ml - LA ESV SP 2CH (MOD) 278 ml - Name Value Normal Range MV E-wave Vmax 1.9 m/sec - MV deceleration time 195 msec - LV septal e' Vmax 0.11 m/sec - LV lateral e' Vmax 0.1 m/sec - LV E:e' septal ratio 17.27 ratio - LV E:e' lateral ratio 19 ratio - Name Value Normal Range AV Vmax 5.1 m/sec - AV VTI 101.1 cm - AV peak gradient 102.37 mmHg - AV mean gradient 54.16 mmHg - LVOT diameter 2 cm - LVOT Vmax 1.7 m/sec - LVOT VTI 32.1 cm - LVOT peak gradient 11.31 mmHg - LVOT mean gradient 5.77 mmHg - GONZALEZ (continuity Vmax) 1.1 cm2 - GONZALEZ (continuity VTI) 1 cm2 - AR PHT 508 msec - AR peak gradient 64.72 mmHg - Name Value Normal Range TR Vmax 2.8 m/sec - TR peak gradient 33 mmHg - RAP 15 mmHg - RVSP 48 mmHg - IVC diameter 3 cm - Name Value Normal Range PV Vmax 1.5 m/sec - PV peak gradient 9.29 mmHg -
--- NOTE | 2016-05-27 15:11 | CONSULT ---
Subjective Date of Service: 05/27/16 - CC: CP Interval History: Overall much improved, no SOB at the time I saw her, no CP but does require morphine to keep CP free. Medications Active Medications: Albuterol/Ipratropium (Duoneb Neb.Tonya*) 1 neb INH Q6H PRN PRN Reason: SOB/WHEEZING Amlodipine Besylate (Norvasc Tab*) 10 mg PO DAILY [facility] Last Admin: 05/27/16 11:58 Dose: 10 mg Aspirin (Aspirin Ec Low Dose*) 81 mg PO DAILY [facility] Last Admin: 05/27/16 11:13 Dose: 81 mg Atorvastatin Calcium (Lipitor*) 80 mg PO 1700 [facility] Cinacalcet (Sensipar Tab*) 30 mg PO DAILY [facility] Last Admin: 05/27/16 11:20 Dose: 30 mg Clonidine HCl (Catapres Tab*) 0.3 mg PO TID [facility] Last Admin: 05/27/16 14:11 Dose: 0.3 mg Diltiazem HCl (Cardizem Cd Cap*) 240 mg PO DAILY [facility] Last Admin: 05/27/16 11:13 Dose: 240 mg Famotidine (Pepcid Tab*) 20 mg PO DAILY [facility] Last Admin: 05/27/16 11:13 Dose: 20 mg Gabapentin (Neurontin Cap(*)) 100 mg PO TID [facility] Last Admin: 05/27/16 14:11 Dose: 100 mg Heparin Sodium (Porcine) (Heparin Vial(*)) 5,000 units SUBCUT Q12HR [facility] Last Admin: 05/27/16 11:14 Dose: 5,000 units Metoprolol Succinate (Toprol Xl Tab*) 12.5 mg PO DAILY [facility] Last Admin: 05/27/16 11:13 Dose: 12.5 mg Metoprolol Tartrate (Lopressor Iv*) 5 mg IV Q4H PRN PRN Reason: HEART RATE/PULSE Last Admin: 05/26/16 13:27 Dose: 5 mg Montelukast Sodium (Singulair Tab*) 10 mg PO DAILY [facility] Last Admin: 05/27/16 11:13 Dose: 10 mg Morphine Sulfate (Morphine Inj (Syringe)*) 2 mg IV Q1H PRN PRN Reason: PAIN Last Admin: 05/27/16 14:11 Dose: 2 mg Oxycodone HCl (Roxycodone Tab*) 5 mg PO Q6H PRN PRN Reason: PAIN - CHEST Last Admin: 05/26/16 18:20 Dose: 5 mg Pharmacy Profile Note (Nitro Patch/Oint Remove*) 1 note PATCH OFF DAILY@2200 [facility] Last Admin: 05/27/16 05:53 Dose: Not Given Sertraline HCl (Zoloft*) 25 mg PO DAILY [facility] Last Admin: 05/27/16 11:13 Dose: 25 mg Sevelamer Carbonate (Renvela Tab*) 4,800 mg PO AC [facility] Last Admin: 05/27/16 13:41 Dose: Not Given Throat Lozenges (Chloraseptic Harry*) 1 harry MT Q2H PRN PRN Reason: THROAT PAIN Last Admin: 05/27/16 06:34 Dose: 1 harry Home Medications: Montelukast Sodium TAB* [Singulair 10 MG TAB*] 10 mg PO DAILY 06/09/12 [History Confirmed 05/25/16] amLODIPine TAB* [Norvasc TAB*] 10 mg PO DAILY 11/10/14 [History Confirmed ] Docusate CAP* [Colace Cap*] 100 mg PO BID 02/09/15 [History Confirmed 05/25/16] Sertraline* [Zoloft*] 25 mg PO DAILY 02/09/15 [History Confirmed 05/25/16] Vitamin E CAP* 1,000 units PO BID 05/04/15 [History Confirmed 05/25/16] Aspirin EC Low Dose* [Ecotrin EC Low Dose*] 81 mg PO DAILY 09/05/15 [History Confirmed 05/25/16] Metoclopramide TAB* [Reglan TAB*] 10 mg PO ACHS 09/05/15 [History Confirmed ] Cinacalcet TAB* [Sensipar TAB*] 30 mg PO DAILY 05/09/16 [History Confirmed 05/25] Pregabalin CAP(*) [Lyrica CAP(*)] 50 mg PO BEDTIME 05/09/16 [History Confirmed 05/25/16] Review of Systems - Measurements Intake and Output: Intake and Output Last 24 Hours 05/25/16 05/26/16 05/27/16 05/28/16 04:59 04:59 04:59 04:59 Intake Total 370 1150 650 Output Total 0 Balance 370 1150 650 Weight 188 lb 7.924 oz 186 lb 1.122 oz Intake: Oral 370 1150 650 Output: Urine 0 Other: Estimated Void Small Date of Last Bowel 05/26/2016 Movement # Bowel Movements 1 Estimated Stool Amount Small # Voids 1 - Review of Systems Review of Systems Statement: All other review of systems negative, unless stated above. Objective Vital Signs: Temp Pulse Resp BP Pulse Ox 98.1 F 95 22 113/76 98 05/27/16 11:21 05/27/16 13:30 05/27/16 14:11 05/27/16 13:30 05/27/16 13:30 Oxygen Devices in Use Now: Nasal Cannula Appearance: lying in bed 20 degrees, comfortable, more chatty today and calmer. Eyes: PERRLA Ears/Nose/Mouth/Throat: Clear Oropharnyx Neck: Trachea Midline Respiratory: Clear to Auscultation Cardiovascular: - - S1 S2 irregular, 2-3 / 6 late peaking SM RUSB. Abdominal: NL Sounds; No Tenderness; No Distention, No Hepatosplenomegaly, - - active BS, soft. Extremities: No Edema Skin: No Rash or Ulcers Neurological: Alert and Oriented x 3, NL Muscle Strength and Tone Laboratory Results: 05/27/16 12:32 05/27/16 05:40 INR (Anticoag Therapy) 0.98 (0.89-1.11) 05/25/16 10:25 APTT 66.3 seconds (26.0-36.3) H 05/25/16 10:25 Total Bilirubin 0.60 mg/dL (0.2-1.0) 05/25/16 10:25 AST 23 U/L (13-39) 05/25/16 10:25 ALT 11 U/L (7-52) 05/25/16 10:25 Alkaline Phosphatase 60 U/L (34-104) 05/25/16 10:25 CK-MB (CK-2) 7.3 ng/mL (0.6-6.3) H 05/25/16 10:25 B-Natriuretic Peptide 2786 pg/mL (-100) H 05/25/16 10:25 Total Protein 6.8 g/dL (6.4-8.9) 05/25/16 10:25 Albumin 3.7 g/dL (3.2-5.2) 05/25/16 10:25 Globulin 3.1 g/dL (2-4) 05/25/16 10:25 Albumin/Globulin Ratio 1.2 (1-3) 05/25/16 10:25 05/26/16 05/27/16 12:44 05:40 Troponin I 16.21 H* 11.72 H* Diagnostic Imaging: ECHO: severe LVH, EF 55-60%, no abnormal pericardial fluid collection. Moderate to severe , leaflets of her prosthetic valve appear calcified with decreased excursion. EKG Data: Monitor: afib, rates 90's. Assessment/Plan 45 yo female, complex and extensive PMHx including ESRD on HD (HTN), chronic afib, AVR, severe LVH with EF 65% and diastolic dysfunction, recent hemoptosis, resp failure with elevated INR, distant Hx DVT's and PE's who presented with CP SOB in decomensated CHF, volume overloaded based on weights, tachycardic and hypotensive. ECG showed severe ST depression and Trop's mildly elevated initially, peaked at 16. Progressive improvement with dialysis and rate control. Echo today does not show new wall motion abnormalities, confirms severe LVH, prosthetic aortic valve stenosis. Points of Discussion: This note in addition to earlier note today, addressing troponin elevation: CP, elevated troponins and ECG changes: Continue with medical management, not an interventional candidate now due to recent hemoptisis: beta clara, goal of rate below 100 bpm. I will increase metoprolol dose and stop amlodipine. Positional CP: Differential of pericarditis, CHF, COPD, GERD, musc. skel. and more. Echo unrevealing. Volume overload: via renal. CHF: at risk for diastolic CHF, rate control as above, anemia can contribute to high output/diastolic CHF as well. Chronic afib: continue with improved rate control as above, no anticoagulation now re: hemoptysis last month, but prison we should coordinate with pulmonary as to when chronic anticoagulation can be resumed. : The patient's prosthetic AV stenosis is I believe contributing to the patient's CHF, afib and rate control. exterminator termite with elevation in troponins to 16, , we would ideally cath her, but we need to ensure it will be safe wrt CHF and if any sort of intervention is indicated that she can safely tolerate the procedure and medications associated with it.
[2016-05-27] MEDS: Atorvastatin* 80 MG TAB PO SCH (17:03)
[2016-05-27] MEDS: Metoprolol Succinate XL TAB* 25 MG PO SCH (21:21)
[2016-05-28] MEDS: Morphine INJ* 2 MG/ML 1 ML SYRINGE IV PRN ×2 (02:22→06:59)
[2016-05-28 04:47] LABS: Hematocrit 22 % (35-47); Hemoglobin 7.3 g/dl (12.0-16.0); Mean Corpuscular HGB Conc 33 g/dl (31-36); Mean Corpuscular Hemoglobin 33 pg (27-31); Mean Corpuscular Volume 100 fL (80-97); Mean Platelet Volume 8 um3 (7.4-10.4); Red Blood Count 2.21 10^6/ul (4.0-5.4); Red Cell Distribution Width 15 % (10.5-15); White Blood Count 6.8 10^3/ul (3.5-10.8)
[2016-05-28 04:58] LABS: BUN/Creatinine Ratio 4.1 (8-20); Calcium 9.3 mg/dL (8.6-10.3); EGFR African American 9.9 (>60); EGFR Non-African American 7.7 (>60); Potassium 4.2 mmol/L (3.5-5.0)
[2016-05-28 05:03] LABS: Troponin I 8.07 ng/mL (<0.04)
[2016-05-28] MEDS: Metoprolol Succinate XL TAB* 25 MG PO SCH ×2 (10:36→20:40)
[2016-05-28] MEDS: Aspirin EC Low Dose* 81 MG TAB.EC PO SCH (10:36)
[2016-05-28] MEDS: Famotidine TAB* 20 MG PO SCH (10:36)
[2016-05-28] MEDS: Montelukast Sodium TAB* 10 MG PO SCH (10:36)
[2016-05-28] MEDS: Gabapentin CAP(*) 100 MG PO SCH ×3 (10:37→20:38)
[2016-05-28] MEDS: Sertraline* 25 MG TAB PO SCH (10:37)
[2016-05-28] MEDS: Heparin VIAL(*) 5000 UNITS/ML VIAL (FIVE THOUSAND) SUBCUT SCH ×2 (10:40→20:36)
[2016-05-28] MEDS: Sevelamer TAB* 800 MG PO SCH ×3 (11:36→16:57)
[2016-05-28] MEDS: Cinacalcet TAB* 30 MG PO SCH ×2 (11:37→11:56)
[2016-05-28] MEDS: cloNIDine TAB* 0.1 MG PO SCH ×3 (11:37→20:38)
[2016-05-28] MEDS: Diltiazem CD CAP* 240 MG PO SCH ×2 (11:37→11:56)
[2016-05-28] MEDS: LORazepam TAB(*) 1 MG PO PRN (11:50)
[2016-05-28] MEDS: Metoprolol Tartrate IV* 1 MG/ML 5 ML VIAL IV PRN (11:52)
[2016-05-28] MEDS: amLODIPine TAB* 5 MG PO SCH (13:56)
[2016-05-28] MEDS: Benzocaine/Menthol LOZ* 1 LOZENGE MT PRN (15:43)
--- NOTE | 2016-05-28 16:30 | PN ---
Subjective Date of Service: 05/28/16 Interval History: Patient seen and examined at bedside. She is very tearful and emotional about her medical situation. She reports feeling very anxious and asked for anxiety medication. She reports her chest pain feels better and is hoping to go home tomorrow. She denies SOB, except with anxiety. She denies n/v, abd pain. Telemetry: atrial fib 70s Family History: Unchanged from Admission Social History: Unchanged from Admission Past Medical History: Unchanged from Admission Objective Active Medications: Albuterol/Ipratropium (Duoneb Neb.Tonya*) 1 neb INH Q6H PRN PRN Reason: SOB/WHEEZING Amlodipine Besylate (Norvasc Tab*) 2.5 mg PO DAILY [facility] Last Admin: 05/28/16 13:56 Dose: 2.5 mg Aspirin (Aspirin Ec Low Dose*) 81 mg PO DAILY [facility] Last Admin: 05/28/16 10:36 Dose: 81 mg Atorvastatin Calcium (Lipitor*) 80 mg PO 1700 [facility] Last Admin: 05/27/16 17:03 Dose: 80 mg Cinacalcet (Sensipar Tab*) 30 mg PO DAILY [facility] Last Admin: 05/28/16 11:56 Dose: 30 mg Clonidine HCl (Catapres Tab*) 0.3 mg PO TID [facility] Last Admin: 05/28/16 13:57 Dose: 0.3 mg Diltiazem HCl (Cardizem Cd Cap*) 240 mg PO DAILY [facility] Last Admin: 05/28/16 11:56 Dose: 240 mg Famotidine (Pepcid Tab*) 20 mg PO DAILY [facility] Last Admin: 05/28/16 10:36 Dose: 20 mg Gabapentin (Neurontin Cap(*)) 100 mg PO TID [facility] Last Admin: 05/28/16 13:58 Dose: 100 mg Heparin Sodium (Porcine) (Heparin Vial(*)) 5,000 units SUBCUT Q12HR [facility] Last Admin: 05/28/16 10:40 Dose: 5,000 units Lorazepam (Ativan Tab(*)) 1 mg PO Q4H PRN PRN Reason: ANXIETY Last Admin: 05/28/16 11:50 Dose: 1 mg Metoprolol Succinate (Toprol Xl Tab*) 25 mg PO BID [facility] Last Admin: 05/28/16 10:36 Dose: 25 mg Metoprolol Tartrate (Lopressor Iv*) 5 mg IV Q4H PRN PRN Reason: HEART RATE/PULSE Last Admin: 05/28/16 11:52 Dose: 5 mg Montelukast Sodium (Singulair Tab*) 10 mg PO DAILY [facility] Last Admin: 05/28/16 10:36 Dose: 10 mg Morphine Sulfate (Morphine Inj (Syringe)*) 2 mg IV Q1H PRN PRN Reason: PAIN Last Admin: 05/28/16 06:59 Dose: 2 mg Oxycodone HCl (Roxycodone Tab*) 5 mg PO Q6H PRN PRN Reason: PAIN - CHEST Last Admin: 05/26/16 18:20 Dose: 5 mg Pharmacy Profile Note (Nitro Patch/Oint Remove*) 1 note PATCH OFF DAILY@2200 [facility] Last Admin: 05/27/16 21:30 Dose: Not Given Sertraline HCl (Zoloft*) 25 mg PO DAILY [facility] Last Admin: 05/28/16 10:37 Dose: 25 mg Sevelamer Carbonate (Renvela Tab*) 4,800 mg PO AC [facility] Last Admin: 05/28/16 11:55 Dose: 4,800 mg Throat Lozenges (Chloraseptic Harry*) 1 harry MT Q2H PRN PRN Reason: THROAT PAIN Last Admin: 05/28/16 15:43 Dose: 1 harry Vital Signs 05/27/16 05/27/16 05/27/16 16:42 17:54 18:54 Temperature 98.3 F Pulse Rate 81 Respiratory 18 18 18 Rate Blood Pressure 86/51 (mmHg) O2 Sat by Pulse 100 Oximetry 05/27/16 05/27/16 05/27/16 20:00 20:48 21:15 Temperature 98.7 F Pulse Rate 79 Respiratory 16 18 16 Rate Blood Pressure 102/63 (mmHg) O2 Sat by Pulse 96 Oximetry 05/27/16 05/27/16 05/27/16 21:21 22:15 23:21 Temperature Pulse Rate Respiratory 18 18 18 Rate Blood Pressure (mmHg) O2 Sat by Pulse Oximetry 05/28/16 05/28/16 05/28/16 00:05 00:20 02:22 Temperature 98.7 F Pulse Rate 73 78 Respiratory 14 16 16 Rate Blood Pressure 101/77 (mmHg) O2 Sat by Pulse 95 98 Oximetry 0105/28/16 05/28/16 03:22 04:06 06:59 Temperature 98.7 F Pulse Rate 76 Respiratory 18 16 18 Rate Blood Pressure 97/68 (mmHg) O2 Sat by Pulse 100 Oximetry 05/28/16 05/28/16 05/28/16 07:52 07:59 08:00 Temperature 98.6 F Pulse Rate 77 Respiratory 20 16 18 Rate Blood Pressure 88/67 (mmHg) O2 Sat by Pulse 100 Oximetry 05/28/16 05/28/16 05/28/16 10:37 11:38 11:45 Temperature 99.0 F Pulse Rate 170 Respiratory 18 20 Rate Blood Pressure 109/84 (mmHg) O2 Sat by Pulse 78 92 Oximetry 05/28/16 05/28/16 05/28/16 11:50 12:28 13:58 Temperature Pulse Rate Respiratory 18 16 16 Rate Blood Pressure (mmHg) O2 Sat by Pulse Oximetry 05/28/16 05/28/16 15:32 15:47 Temperature 98.4 F Pulse Rate 65 Respiratory 18 16 Rate Blood Pressure 112/71 (mmHg) O2 Sat by Pulse 100 Oximetry Oxygen Devices in Use Now: Nasal Cannula Appearance: Female patient, lying in bed, in NAD but appears visibly upset Eyes: PERRLA Ears/Nose/Mouth/Throat: Clear Oropharnyx, Mucous Membranes Moist Neck: NL Appearance and Movements; NL JVP Respiratory: Symmetrical Chest Expansion and Respiratory Effort, Clear to Auscultation - fine crackles in bases Cardiovascular: NL Sounds; No Murmurs; No JVD - irregular rate/rhythm, 3/6 systolic murmur Abdominal: NL Sounds; No Tenderness; No Distention Extremities: No Edema - 1+ pitting edema Neurological: Alert and Oriented x 3 Nutrition: Taking PO's Result Diagrams: 05/28/16 04:12 05/28/16 04:12 Additional Lab and Data: Lab Results 05/25/16 05/25/16 Range/Units 10:25 10:25 WBC 10.7 (3.5-10.8) 10^3/ul RBC 2.29 L (4.0-5.4) 10^6/ul Hgb 7.6 L (12.0-16.0) g/dl Hct 23 L (35-47) % MCV 98 H (80-97) fL MCH 33 H (27-31) pg MCHC 34 (31-36) g/dl RDW 16 H (10.5-15) % Plt Count 195 (150-450) 10^3/ul MPV 8 (7.4-10.4) um3 Neut % (Auto) 77.2 (38-83) % Lymph % (Auto) 9.4 L (25-47) % Carbon % (Auto) 11.1 H (1-9) % Eos % (Auto) 1.3 (0-6) % Baso % (Auto) 1.0 (0-2) % Absolute Neuts (auto) 8.3 H (1.5-7.7) 10^3/ul Absolute Lymphs (auto) 1.0 (1.0-4.8) 10^3/ul Absolute Monos (auto) 1.2 H (0-0.8) 10^3/ul Absolute Eos (auto) 0.1 (0-0.6) 10^3/ul Absolute Basos (auto) 0.1 (0-0.2) 10^3/ul Absolute Nucleated RBC 0 10^3/ul Nucleated RBC % 0 INR (Anticoag Therapy) 0.98 (0.89-1.11) APTT 66.3 H (26.0-36.3) seconds Microbiology and Other Data: Microbiology 05/25/16 11:25 Nasal Screen MRSA (PCR)(RON) - Final Nasal Mrsa Negative Assess/Plan/Problems-Billing Assessment: Ms. Joseph is a 45 yo female with a PMH of ESRD on HD, HTN, chronic afib, AVR, resp failure with elevated INR, CHF and severe LVH who presented on 05/25/16 with CP and SOB secondary to NSTEMI, decompensated heart failure, and fluid overload. - Patient Problems (1) NSTEMI (non-ST elevated myocardial infarction) Code(s): I21.4 - NON-ST ELEVATION (NSTEMI) MYOCARDIAL INFARCTION Comment: Presented with CP, SOB, elevated troponin, and ST depressions likely secondary to ACS. Now improved, CP better today with medical management. Patient not a candidate for interventional cardiology at this time due to recent hemoptysis and pulmonary hemorrhage. (2) Congestive heart failure Current Visit: No Status: Acute Priority: Medium Code(s): I50.9 - HEART FAILURE, UNSPECIFIED SNOMED Code(s): 38145432 Comment: EF 55-60%, severe LVH Fluid restriction. Dialysis management per nephrology. Continue daily weights, strict I/O, and low sodium/renal diet. (3) COPD (chronic obstructive pulmonary disease) Current Visit: No Status: Acute Code(s): J44.9 - CHRONIC OBSTRUCTIVE PULMONARY DISEASE, UNSPECIFIED SNOMED Code(s): 76466209 Comment: Stable. Continue PRN nebulizers. (4) End stage renal disease on dialysis Code(s): N18.6 - END STAGE RENAL DISEASE; Z99.2 - DEPENDENCE ON RENAL DIALYSIS Comment: Continue dialysis on her usual regimen. Phosphorus binder with meals (5) Atrial fibrillation Code(s): I48.91 - UNSPECIFIED ATRIAL FIBRILLATION Comment: Rate controlled. Off warfarin with recent pulmonary hemorrhage. Continue diltiazem and metoprolol. (6) History of DVT (deep vein thrombosis) Current Visit: No Status: Chronic Code(s): Z86.718 - PERSONAL HISTORY OF OTHER VENOUS THROMBOSIS AND EMBOLISM SNOMED Code(s): 192192297 Comment: SQ heparin while in hospital; currently off warfarin due to previous pulmonary hemorrhage. (7) Hypertension Code(s): I10 - ESSENTIAL (PRIMARY) HYPERTENSION Comment: Normotensive with some soft BPs. Continue metoprolol, dilitazem, amlodipine, clonidine and adjust accordingly. (8) DVT prophylaxis Comment: SQ heparin (9) Full code status Current Visit: No Status: Acute Priority: Medium Onset Date: 07/04/14 Code(s): Z78.9 - OTHER SPECIFIED HEALTH STATUS SNOMED Code(s): 447301637 Status and Disposition: Inpatient admission. Anticipate d/c home tomorrow.
[2016-05-28] MEDS: Atorvastatin* 80 MG TAB PO SCH (16:57)
[2016-05-28] MEDS: oxyCODONE TAB* 5 MG TAB PO PRN ×2 (16:58→22:59)
[2016-05-28] MEDS: Nitro Patch/OINT Remove PATCH OFF SCH (20:42)
[2016-05-29] MEDS: LORazepam TAB(*) 1 MG PO PRN ×2 (03:24→18:35)
[2016-05-29] MEDS: oxyCODONE TAB* 5 MG TAB PO PRN (05:57)
[2016-05-29 07:51] LABS: Hematocrit 20 % (35-47); Mean Corpuscular HGB Conc 33 g/dl (31-36); Mean Corpuscular Hemoglobin 33 pg (27-31); Mean Corpuscular Volume 99 fL (80-97); Mean Platelet Volume 8 um3 (7.4-10.4); Red Blood Count 2.03 10^6/ul (4.0-5.4); Red Cell Distribution Width 16 % (10.5-15); White Blood Count 5.5 10^3/ul (3.5-10.8)
[2016-05-29 07:57] LABS: Comments Flag Yes
[2016-05-29 07:58] LABS: Hemoglobin 6.7 g/dl (12.0-16.0)
[2016-05-29 08:01] LABS: BUN/Creatinine Ratio 4.2 (8-20); Calcium 9.3 mg/dL (8.6-10.3); EGFR African American 6.5 (>60); Potassium 4.7 mmol/L (3.5-5.0)
[2016-05-29] MEDS: Morphine INJ* 2 MG/ML 1 ML SYRINGE IV PRN ×4 (08:39→20:33)
[2016-05-29] MEDS: Sevelamer TAB* 800 MG PO SCH ×3 (08:44→17:26)
[2016-05-29] MEDS: Heparin VIAL(*) 5000 UNITS/ML VIAL (FIVE THOUSAND) SUBCUT SCH ×2 (08:44→20:44)
[2016-05-29] MEDS: Gabapentin CAP(*) 100 MG PO SCH ×3 (08:46→20:30)
[2016-05-29] MEDS: Diltiazem CD CAP* 240 MG PO SCH (08:46)
[2016-05-29] MEDS: cloNIDine TAB* 0.1 MG PO SCH ×3 (08:46→20:36)
[2016-05-29] MEDS: Sertraline* 25 MG TAB PO SCH (08:46)
[2016-05-29] MEDS: Aspirin EC Low Dose* 81 MG TAB.EC PO SCH (08:47)
[2016-05-29] MEDS: Famotidine TAB* 20 MG PO SCH (08:47)
[2016-05-29] MEDS: Montelukast Sodium TAB* 10 MG PO SCH (08:47)
[2016-05-29] MEDS ORDERED: Epoetin Alfa* 2,000 UNITS/ML VIAL IV ONE (10:00)
[2016-05-29] MEDS ORDERED: Epoetin Alfa* 10,000 UNITS/ML VIAL IV ONE (10:00)
[2016-05-29] MEDS ORDERED: Epoetin Alfa* 3,000 UNITS/ML VIAL IV ONE (10:00)
[2016-05-29] MEDS ORDERED: Heparin DIALYSIS ONLY(*) 1,000 UNITS/ML VIAL DIALYSIS ONE (10:00)
[2016-05-29] MEDS: Cinacalcet TAB* 30 MG PO SCH (13:19)
[2016-05-29] MEDS: amLODIPine TAB* 5 MG PO SCH (13:19)
[2016-05-29] MEDS: Metoprolol Succinate XL TAB* 25 MG PO SCH ×2 (13:19→20:36)
[2016-05-29] MEDS: Nicotine PATCH 21 MG/24 HR* PATCH TRANSDERM SCH (15:02)
--- NOTE | 2016-05-29 15:18 | PN ---
Subjective Date of Service: 05/29/16 Interval History: Patient seen and examined at bedside. She reports persistent chest pain that is better with position change. She is tired, but denies SOB, abd pain, n/v. She is open to staying to pursue catheterization if necessary. No other concerns at this time. Family History: Unchanged from Admission Social History: Unchanged from Admission Past Medical History: Unchanged from Admission Objective Active Medications: Albuterol/Ipratropium (Duoneb Neb.Tonya*) 1 neb INH Q6H PRN PRN Reason: SOB/WHEEZING Amlodipine Besylate (Norvasc Tab*) 2.5 mg PO DAILY [facility] Last Admin: 05/29/16 13:19 Dose: 2.5 mg Aspirin (Aspirin Ec Low Dose*) 81 mg PO DAILY [facility] Last Admin: 05/29/16 08:47 Dose: 81 mg Atorvastatin Calcium (Lipitor*) 80 mg PO 1700 [facility] Last Admin: 05/28/16 16:57 Dose: 80 mg Cinacalcet (Sensipar Tab*) 30 mg PO DAILY [facility] Last Admin: 05/29/16 13:19 Dose: 30 mg Clonidine HCl (Catapres Tab*) 0.3 mg PO TID [facility] Last Admin: 05/29/16 13:44 Dose: 0.3 mg Diltiazem HCl (Cardizem Cd Cap*) 240 mg PO DAILY [facility] Last Admin: 05/29/16 08:46 Dose: 240 mg Famotidine (Pepcid Tab*) 20 mg PO DAILY [facility] Last Admin: 05/29/16 08:47 Dose: 20 mg Gabapentin (Neurontin Cap(*)) 100 mg PO TID [facility] Last Admin: 05/29/16 13:44 Dose: 100 mg Heparin Sodium (Porcine) (Heparin Vial(*)) 5,000 units SUBCUT Q12HR [facility] Last Admin: 05/29/16 08:44 Dose: 5,000 units Lorazepam (Ativan Tab(*)) 1 mg PO Q4H PRN PRN Reason: ANXIETY Last Admin: 05/29/16 03:24 Dose: 1 mg Metoprolol Succinate (Toprol Xl Tab*) 25 mg PO BID [facility] Last Admin: 05/29/16 13:19 Dose: 25 mg Metoprolol Tartrate (Lopressor Iv*) 5 mg IV Q4H PRN PRN Reason: HEART RATE/PULSE Last Admin: 05/28/16 11:52 Dose: 5 mg Montelukast Sodium (Singulair Tab*) 10 mg PO DAILY [facility] Last Admin: 05/29/16 08:47 Dose: 10 mg Morphine Sulfate (Morphine Inj (Syringe)*) 2 mg IV Q1H PRN PRN Reason: PAIN Last Admin: 05/29/16 13:44 Dose: 2 mg Nicotine (Nicotine Patch 21 Mg/24 Hr*) 1 patch TRANSDERM DAILY [facility] Last Admin: 05/29/16 15:02 Dose: 1 patch Oxycodone HCl (Roxycodone Tab*) 5 mg PO Q6H PRN PRN Reason: PAIN - CHEST Last Admin: 05/29/16 05:57 Dose: 5 mg Pharmacy Profile Note (Nitro Patch/Oint Remove*) 1 note PATCH OFF DAILY@2200 [facility] Last Admin: 05/28/16 20:42 Dose: Not Given Pharmacy Profile Note (Nicotine Patch Removal Note*) 1 note PATCH OFF 2100 [facility] Sertraline HCl (Zoloft*) 25 mg PO DAILY [facility] Last Admin: 05/29/16 08:46 Dose: 25 mg Sevelamer Carbonate (Renvela Tab*) 4,800 mg PO AC [facility] Last Admin: 05/29/16 13:36 Dose: Not Given Throat Lozenges (Chloraseptic Harry*) 1 harry MT Q2H PRN PRN Reason: THROAT PAIN Last Admin: 05/28/16 15:43 Dose: 1 harry Vital Signs 05/28/16 05/28/16 05/28/16 15:32 15:47 16:58 Temperature 98.4 F Pulse Rate 65 Respiratory 18 16 16 Rate Blood Pressure 112/71 (mmHg) O2 Sat by Pulse 100 Oximetry 05/28/16 05/28/16 05/28/16 18:37 18:58 19:37 Temperature 98.4 F Pulse Rate 76 82 Respiratory 16 18 18 Rate Blood Pressure 146/73 (mmHg) O2 Sat by Pulse 96 100 Oximetry 05/28/16 05/28/16 05/28/16 19:43 20:38 22:38 Temperature Pulse Rate Respiratory 18 20 20 Rate Blood Pressure (mmHg) O2 Sat by Pulse Oximetry 05/28/16 05/29/16 05/29/16 22:59 00:38 00:59 Temperature 98.9 F Pulse Rate 94 Respiratory 18 20 18 Rate Blood Pressure 126/76 (mmHg) O2 Sat by Pulse 97 Oximetry 05/29/16 05/29/16 05/29/16 03:11 03:24 05:24 Temperature 98.6 F Pulse Rate 71 Respiratory 16 18 18 Rate Blood Pressure 103/79 (mmHg) O2 Sat by Pulse 100 Oximetry 05/29/16 05/29/16 05/29/16 05:57 07:57 08:00 Temperature Pulse Rate Respiratory 18 16 16 Rate Blood Pressure (mmHg) O2 Sat by Pulse Oximetry 05/29/16 05/29/16 05/29/16 08:13 08:39 08:46 Temperature 98.2 F Pulse Rate 69 Respiratory 16 20 20 Rate Blood Pressure 100/64 (mmHg) O2 Sat by Pulse 100 Oximetry 05/29/16 05/29/16 13:09 13:44 Temperature 98.3 F Pulse Rate 74 Respiratory 16 16 Rate Blood Pressure 131/83 (mmHg) O2 Sat by Pulse 97 Oximetry Oxygen Devices in Use Now: Nasal Cannula Appearance: Female patient, lying in bed, in NAD Eyes: PERRLA Ears/Nose/Mouth/Throat: Mucous Membranes Moist Respiratory: Symmetrical Chest Expansion and Respiratory Effort, Clear to Auscultation - diminished Cardiovascular: - - irregularly irregular rhythm/rate, systolic murmur Abdominal: NL Sounds; No Tenderness; No Distention Extremities: - - +1 pitting edema Neurological: Alert and Oriented x 3 Result Diagrams: 05/29/16 07:30 05/29/16 07:30 Additional Lab and Data: Lab Results 05/25/16 05/25/16 Range/Units 10:25 10:25 WBC 10.7 (3.5-10.8) 10^3/ul RBC 2.29 L (4.0-5.4) 10^6/ul Hgb 7.6 L (12.0-16.0) g/dl Hct 23 L (35-47) % MCV 98 H (80-97) fL MCH 33 H (27-31) pg MCHC 34 (31-36) g/dl RDW 16 H (10.5-15) % Plt Count 195 (150-450) 10^3/ul MPV 8 (7.4-10.4) um3 Neut % (Auto) 77.2 (38-83) % Lymph % (Auto) 9.4 L (25-47) % [place] % (Auto) 11.1 H (1-9) % Eos % (Auto) 1.3 (0-6) % Baso % (Auto) 1.0 (0-2) % Absolute Neuts (auto) 8.3 H (1.5-7.7) 10^3/ul Absolute Lymphs (auto) 1.0 (1.0-4.8) 10^3/ul Absolute Monos (auto) 1.2 H (0-0.8) 10^3/ul Absolute Eos (auto) 0.1 (0-0.6) 10^3/ul Absolute Basos (auto) 0.1 (0-0.2) 10^3/ul Absolute Nucleated RBC 0 10^3/ul Nucleated RBC % 0 INR (Anticoag Therapy) 0.98 (0.89-1.11) APTT 66.3 H (26.0-36.3) seconds Microbiology and Other Data: Microbiology 05/25/16 11:25 Nasal Screen MRSA (PCR)(RON) - Final Nasal Mrsa Negative Assess/Plan/Problems-Billing Assessment: Ms. Joseph is a 45 yo female with a PMH of ESRD on HD, HTN, chronic afib, AVR, resp failure with elevated INR, CHF and severe LVH who presented on 05/25/16 with CP and SOB secondary to NSTEMI, decompensated heart failure, and fluid overload. - Patient Problems (1) Chest pain Code(s): R07.9 - CHEST PAIN, UNSPECIFIED Comment: Presented with CP, SOB, elevated troponin, and ST depressions likely secondary to ACS. Unable to cath patient upon presentation to determine if this was secondary to VA or demand ischemia Still with positional chest pain that improves with morphine. Patient initially not a candidate for interventional cardiology due to recent hemoptysis and pulmonary hemorrhage. Appreciate cardiology and pulmonology consults. (2) Anemia Code(s): D64.9 - ANEMIA, UNSPECIFIED Comment: Persistent anemia, secondary to chronic disease? Epogen received in dialysis Plan to transfuse 1 unit PRBC today (3) Congestive heart failure SNOMED Code(s): 60549938 Comment: EF 55-60%, severe LVH Fluid restriction. Dialysis management per nephrology. Continue daily weights, strict I/O, and low sodium/renal diet. (4) COPD (chronic obstructive pulmonary disease) Code(s): J44.9 - CHRONIC OBSTRUCTIVE PULMONARY DISEASE, UNSPECIFIED Comment: Stable. Continue PRN nebulizers. (5) End stage renal disease on dialysis Code(s): N18.6 - END STAGE RENAL DISEASE; Z99.2 - DEPENDENCE ON RENAL DIALYSIS Comment: Continue dialysis on her usual regimen. Phosphorus binder with meals (6) Atrial fibrillation Code(s): I48.91 - UNSPECIFIED ATRIAL FIBRILLATION Comment: Rate controlled. Off warfarin with recent pulmonary hemorrhage. Continue diltiazem and metoprolol. (7) History of DVT (deep vein thrombosis) Code(s): Z86.718 - PERSONAL HISTORY OF OTHER VENOUS THROMBOSIS AND EMBOLISM Comment: SQ heparin while in hospital; currently off warfarin due to previous pulmonary hemorrhage. (8) Hypertension Code(s): I10 - ESSENTIAL (PRIMARY) HYPERTENSION Comment: Normotensive with some soft BPs. Continue metoprolol, dilitazem, amlodipine, clonidine and adjust accordingly. (9) DVT prophylaxis Comment: SQ heparin Status and Disposition: Inpatient admission. Potential for catheterization tomorrow.
[2016-05-29] MEDS: Atorvastatin* 80 MG TAB PO SCH (17:26)
[2016-05-29] MEDS ORDERED: Nicotine Patch Removal NOTE PATCH OFF SCH (21:00)
--- NOTE | 2016-05-29 22:42 | CONS ---
PULMONARY CONSULTATION REPORT: DATE OF CONSULT: 05/29/16 CONSULTATION REQUESTED BY: Nisha Hudson NP REASON FOR CONSULTATION: Evaluation of hemoptysis. HISTORY OF PRESENT ILLNESS: The patient is a 45-year-old -[place] female with extensive past medical history with multiple hospitalizations recently. The patient was admitted recently to the hospital from 05/14/16 to for hemoptysis. The patient has required ventilatory support at that time. The patient's hemoptysis was attributed to diffuse alveolar hemorrhage. The patient had CT scan of the chest performed at that time. I have personally reviewed the most recent CT scan of the chest in comparison with her prior imaging studies done in the July and Apr. CT chest done in July 2014 showed diffuse alveolar opacities. The patient had CT scan in April 2015, which showed progression of diffuse alveolar ground glass opacities. The patient's recent CT scan from Apr 2016 showed significant consolidation and increased opacities in dependent areas with unchanged areas of ground glass opacities in the upper and middle lobe bilaterally. The patient also has mild lymphadenopathy in the mediastinal region. The patient was readmitted to the hospital a few days ago for evaluation of chest pain and shortness of breath, which was attributed to fluid overload. The patient had dialysis performed in the ED with loss of 7 kilos. The patient denied significant hemoptysis during this current admission. 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 The patient also has history of DVTs and PEs. The patient had similar episode of hemoptysis in 2001 for the first time at which time she was noted to have valvular abnormalities. The patient had valve replacement with bovine valves in [facility]. The patient' s hemoptysis subsequently resolved until it recurred a year ago. Review of the medical records also reveals a myocardial infarction in 2001 related to cocaine use. The patient has end-stage renal disease with multiple fistula placements in the past. She also has been on peritoneal dialysis in the past. The patient 's end- stage renal disease was attributed to hypertensive nephropathy. The patient denies joint aches. The patient also has a history of atrial fibrillation and DVTs and PEs and has been on anticoagulation which was held during the recent admission. The patient also had ST depressions during this current admissions and she is being consulted by Cardiology. The patient denied any symptoms other than chest pain and feeling anxious about her current condition. She denies shortness of breath or cough at this time. No further episode of significant hemoptysis during this current admission. PAST MEDICAL HISTORY: 1. Severe hypertension with hypertensive kidney disease. 2. End-stage renal disease, on hemodialysis. 3. Aortic valve replacement in 2012. 4. The patient also had possibly mitral valve replacement. 5. Atrial fibrillation. 6. Chronic recurrent DVTs and PEs. 7. Recent pulmonary hemorrhage in 05/14/16 admission. 8. Pulmonary hemorrhage in April 2015. 9. Pulmonary hemorrhage in 2001. 10. Mitral insufficiency. 11. Chronic obstructive pulmonary disease. 12. Dyslipidemia. 13. Coronary artery disease. 14. Myocardial infarction in 2001 related to cocaine use. 15. Congestive heart failure. 16. SVC syndrome. 17. Anxiety. 18. Depression. MEDICATIONS AT THE TIME OF RECENT DISCHARGE: Included: 1. DuoNeb. 2. Maalox. 3. Vitamin E. 4. Spiriva. 5. Renvela. 6. Sertraline. 7. Lyrica. 8. Singulair. 9. Toprol. 10. Diltiazem. 11. Labetalol. 12. Amlodipine. 13. Clonidine. 14. Aspirin. 15. Reglan. 16. Neurontin. 17. Colace. 18. Sensipar. 19. Dulcolax. 20. Tessalon Perles. 21. Oxycodone. 22. Guaifenesin. 23. Nicotine patch. ALLERGIES: IODINATED CONTRAST DYE, LISINOPRIL, PENICILLIN, CEPHALOSPORINS, and PROPOFOL. FAMILY HISTORY: She was a foster child. History not obtainable. SOCIAL HISTORY: The patient is a former smoker, quit recently. No history of alcohol abuse. Reported cocaine abuse from review of older records. REVIEW OF SYSTEMS: All 14 systems are reviewed and as per HPI. PHYSICAL EXAMINATION: General: The patient in bed, in no apparent distress. Vital Signs: Temperature 98.3, pulse 74 beats per minute, respiratory rate 16 per minute, O2 sat 97% on 2 L, blood pressure 131/83. HEENT: Pupils are equal and reactive to light. Mucous membranes moist. Lungs: Good air entry bilaterally, coarse breath sounds. Cardiovascular: S1, S2 present. Systolic murmur at left sternal border. Abdomen: Obese. Bowel sounds present, nontender, nondistended. Extremities: No edema, normal range of motion. Neurological: No focal deficits. LABORATORY DATA: WBC count 5.5, hemoglobin 6.7, hematocrit 20, platelet count 144. INR is 0.98. Sodium 133, potassium 4.7, chloride 92, bicarb 35, BUN 36, creatinine 0.56. Serological workup was done in 2015, JUNAID and C-ANCA negative. CT scan as described above in HPI. IMPRESSION AND RECOMMENDATIONS: 45-year-old female with multiple comorbidities with recent episode of hemoptysis and current concern with non-ST elevation myocardial infarction 1. Hemoptysis, unclear etiology, could be secondary to underlying valvular abnormalities especially mitral valve disease in conjunction with end-stage renal disease and hypercoagulable state. 2. Pulmonary abnormalities of unclear etiology secondary to alveolar hemorrhage from vasculitis or coagulopathy. 3. Pad-[id number]-[id number] myocardial infarction. 4. Atrial fibrillation. 5. Deep venous thrombosis/pulmonary embolism. 6. End-stage renal disease. The patient is with possible underlying lung condition likely vasculitis versus hemoptysis secondary to underlying valvular abnormalities and pulmonary hypertension- Unclear etiology at this time. Plan for a diagnostic and possible therapeutic cath by Cardiology. Given unclear nature of underlying pulmonary condition, I cannot entirely rule out the possibility of recurrence of hemoptysis since this has been at least going on for quite some time already with recurrence. The patient definitely is at higher risk for recurrent hemoptysis with anticoagulation and antiplatelet therapy. The patient might be having demand ischemia at this time given her anemia. I would recommend blood transfusion to improve her hematocrit. Since it is also believed that she has significant underlying valvular abnormalities, she might benefit from CABG and valvular replacement at a tertiary care center if cardiac cath shows significant coronary artery disease. Will send serological workup to evaluate for vasculitis, pulmo-renal disease. Given her complicated condition, 60 minutes were spent, more than 50% with face to face evaluation, rest of the time in reviewing medical records and consultation with primary care and Cardiology. Thank you for allowing me to participate in the care of your patient. Will follow up with you. [id number]/[facility] #: [id number] SHI
--- NOTE | 2016-05-29 23:11 | PN ---
Subjective Date of Service: 05/29/16 - cc: pleuritic and positional CP Interval History: Overall much improved, no SOB currently, but CP persists. Per pt 2-3 months of CP, positional lying down with a pleuritic component. + Dysphagia as well, feels like things get stuck swallowing. NOTE: per patient she NEVER used cocaine, feels this notation in her PMHx is in error. Medications Active Medications: Albuterol/Ipratropium (Duoneb Neb.Tonya*) 1 neb INH Q6H PRN PRN Reason: SOB/WHEEZING Amlodipine Besylate (Norvasc Tab*) 2.5 mg PO DAILY [facility] Last Admin: 05/29/16 13:19 Dose: 2.5 mg Aspirin (Aspirin Ec Low Dose*) 81 mg PO DAILY [facility] Last Admin: 05/29/16 08:47 Dose: 81 mg Atorvastatin Calcium (Lipitor*) 80 mg PO 1700 [facility] Last Admin: 05/29/16 17:26 Dose: 80 mg Cinacalcet (Sensipar Tab*) 30 mg PO DAILY [facility] Last Admin: 05/29/16 13:19 Dose: 30 mg Clonidine HCl (Catapres Tab*) 0.3 mg PO TID [facility] Last Admin: 05/29/16 20:36 Dose: Not Given Diltiazem HCl (Cardizem Cd Cap*) 240 mg PO DAILY [facility] Last Admin: 05/29/16 08:46 Dose: 240 mg Famotidine (Pepcid Tab*) 20 mg PO DAILY [facility] Last Admin: 05/29/16 08:47 Dose: 20 mg Gabapentin (Neurontin Cap(*)) 100 mg PO TID [facility] Last Admin: 05/29/16 20:30 Dose: 100 mg Heparin Sodium (Porcine) (Heparin Vial(*)) 5,000 units SUBCUT Q12HR [facility] Last Admin: 05/29/16 20:44 Dose: 5,000 units Lorazepam (Ativan Tab(*)) 1 mg PO Q4H PRN PRN Reason: ANXIETY Last Admin: 05/29/16 18:35 Dose: 1 mg Metoprolol Succinate (Toprol Xl Tab*) 25 mg PO BID [facility] Last Admin: 05/29/16 20:36 Dose: Not Given Metoprolol Tartrate (Lopressor Iv*) 5 mg IV Q4H PRN PRN Reason: HEART RATE/PULSE Last Admin: 05/28/16 11:52 Dose: 5 mg Montelukast Sodium (Singulair Tab*) 10 mg PO DAILY [facility] Last Admin: 05/29/16 08:47 Dose: 10 mg Morphine Sulfate (Morphine Inj (Syringe)*) 2 mg IV Q1H PRN PRN Reason: PAIN Last Admin: 05/29/16 20:33 Dose: 2 mg Nicotine (Nicotine Patch 21 Mg/24 Hr*) 1 patch TRANSDERM DAILY [facility] Last Admin: 05/29/16 15:02 Dose: 1 patch Oxycodone HCl (Roxycodone Tab*) 5 mg PO Q6H PRN PRN Reason: PAIN - CHEST Last Admin: 05/29/16 05:57 Dose: 5 mg Pharmacy Profile Note (Nitro Patch/Oint Remove*) 1 note PATCH OFF DAILY@2200 [facility] Last Admin: 05/28/16 20:42 Dose: Not Given Pharmacy Profile Note (Nicotine Patch Removal Note*) 1 note PATCH OFF 2100 [facility] Sertraline HCl (Zoloft*) 25 mg PO DAILY [facility] Last Admin: 05/29/16 08:46 Dose: 25 mg Sevelamer Carbonate (Renvela Tab*) 4,800 mg PO AC [facility] Last Admin: 05/29/16 17:26 Dose: 4,800 mg Throat Lozenges (Chloraseptic Harry*) 1 harry MT Q2H PRN PRN Reason: THROAT PAIN Last Admin: 05/28/16 15:43 Dose: 1 harry Objective Vital Signs: Temp Pulse Resp BP Pulse Ox 97.9 F 71 14 103/62 97 05/29/16 19:28 05/29/16 20:00 05/29/16 21:33 05/29/16 19:28 05/29/16 20:00 Oxygen Devices in Use Now: Nasal Cannula Appearance: lying in bed falt, comfortable, appropriate, calm, best I have seen her. Eyes: PERRLA Ears/Nose/Mouth/Throat: Clear Oropharnyx, Mucous Membranes Moist Neck: Trachea Midline Respiratory: Symmetrical Chest Expansion and Respiratory Effort, Clear to Auscultation Cardiovascular: - - S1 S2 irregular, 2-3 / 6 late peaking SM RUSB, soft S2, radiates to back. CP is reproducable pushing on the sternum. Abdominal: NL Sounds; No Tenderness; No Distention, No Hepatosplenomegaly, - - active BS, soft. Extremities: No Edema Skin: No Rash or Ulcers Neurological: Alert and Oriented x 3, NL Muscle Strength and Tone Laboratory Results: 05/29/16 07:30 05/29/16 07:30 INR (Anticoag Therapy) 0.98 (0.89-1.11) 05/25/16 10:25 APTT 66.3 seconds (26.0-36.3) H 05/25/16 10:25 Total Bilirubin 0.60 mg/dL (0.2-1.0) 05/25/16 10:25 AST 23 U/L (13-39) 05/25/16 10:25 ALT 11 U/L (7-52) 05/25/16 10:25 Alkaline Phosphatase 60 U/L (34-104) 05/25/16 10:25 CK-MB (CK-2) 7.3 ng/mL (0.6-6.3) H 05/25/16 10:25 B-Natriuretic Peptide 2786 pg/mL (-100) H 05/25/16 10:25 Total Protein 6.8 g/dL (6.4-8.9) 05/25/16 10:25 Albumin 3.7 g/dL (3.2-5.2) 05/25/16 10:25 Globulin 3.1 g/dL (2-4) 05/25/16 10:25 Albumin/Globulin Ratio 1.2 (1-3) 05/25/16 10:25 05/26/16 05/27/16 05/28/16 12:44 05:40 04:12 Troponin I 16.21 H* 11.72 H* 8.07 H* Diagnostic Imaging: ECHO: severe LVH, EF 55-60%, no abnormal pericardial fluid collection. Moderate to severe , leaflets of her prosthetic valve appear calcified with decreased excursion. EKG Data: Monitor: afib, rates 90's. Assessment/Plan 45 yo female, complex and extensive PMHx including ESRD on HD (HTN), chronic afib, AVR, severe LVH with EF 65% and diastolic dysfunction, recent hemoptosis, resp failure with elevated INR, distant Hx DVT's and PE's who presented with CP SOB in decomensated CHF, volume overloaded based on weights, tachycardic and hypotensive. ECG showed severe ST depression and Trop's mildly elevated initially, peaked at 16. Progressive improvement with dialysis and rate control and pain control Echo does not show new wall motion abnormalities, confirms severe LVH, prosthetic aortic valve stenosis. Points of Discussion: CP, elevated troponins and ECG changes: Continue with medical management, not an interventional candidate now due to recent hemoptisis: beta clara, goal of rate below 100 bpm. I will increase metoprolol dose and stop amlodipine. Positional CP: Differential of pericarditis, CHF, COPD, GERD, musc. skel. and more. Echo unrevealing. Based on today's history, much more able to provide an accurate history today, there is evidence of costochodritis and GERD/esophogitis. Consider GI consult and/or empiric Sucralfate. Volume overload: via renal. CHF: at risk for diastolic CHF, rate control as above, anemia can contribute to high output/diastolic CHF as well. Chronic afib: continue with improved rate control as above, no anticoagulation now re: hemoptysis last month, but halfway we should coordinate with pulmonary as to when chronic anticoagulation can be resumed ( appreciate Dr. Ceja's input). : The patient's prosthetic AV stenosis is I believe contributing to the patient's CHF, afib and rate control. prison with elevation in troponins to 16, , we would ideally cath her, to evaluate for possible CAD and get additional information regarding her prosthetic valve, we are heading into redo valve surgery if she is a candidate. To proceed safely, we need to coordinate with renal, pulmonary, possibly hematology. Diagnostic cath only on short term and halfway approach being discussed with interventional cardiology.
[2016-05-30] MEDS: Nitro Patch/OINT Remove PATCH OFF SCH (00:56)
[2016-05-30] MEDS: Morphine INJ* 2 MG/ML 1 ML SYRINGE IV PRN ×4 (01:12→19:19)
[2016-05-30 05:42] LABS: Hematocrit 22 % (35-47); Hemoglobin 7.4 g/dl (12.0-16.0); Mean Corpuscular HGB Conc 33 g/dl (31-36); Mean Corpuscular Hemoglobin 33 pg (27-31); Mean Corpuscular Volume 99 fL (80-97); Mean Platelet Volume 8 um3 (7.4-10.4); Red Blood Count 2.26 10^6/ul (4.0-5.4); Red Cell Distribution Width 16 % (10.5-15); White Blood Count 5.5 10^3/ul (3.5-10.8)
[2016-05-30] MEDS: Benzocaine/Menthol LOZ* 1 LOZENGE MT PRN (05:46)
[2016-05-30 06:03] LABS: BUN/Creatinine Ratio 3.1 (8-20); Calcium 9.2 mg/dL (8.6-10.3); EGFR African American 9.6 (>60); EGFR Non-African American 7.5 (>60); Potassium 4.4 mmol/L (3.5-5.0)
[2016-05-30] MEDS: Nicotine PATCH 21 MG/24 HR* PATCH TRANSDERM SCH (09:45)
[2016-05-30] MEDS: cloNIDine TAB* 0.1 MG PO SCH ×3 (09:47→19:29)
[2016-05-30] MEDS: Gabapentin CAP(*) 100 MG PO SCH ×2 (09:47→14:45)
[2016-05-30] MEDS: Montelukast Sodium TAB* 10 MG PO SCH (09:47)
[2016-05-30] MEDS: Famotidine TAB* 20 MG PO SCH (09:47)
[2016-05-30] MEDS: Cinacalcet TAB* 30 MG PO SCH (09:47)
[2016-05-30] MEDS: Diltiazem CD CAP* 240 MG PO SCH (09:47)
[2016-05-30] MEDS: Sertraline* 25 MG TAB PO SCH (09:47)
[2016-05-30] MEDS: amLODIPine TAB* 5 MG PO SCH (09:50)
[2016-05-30] MEDS: Aspirin EC Low Dose* 81 MG TAB.EC PO SCH (09:50)
[2016-05-30] MEDS: Metoprolol Succinate XL TAB* 25 MG PO SCH (09:50)
[2016-05-30] MEDS: Heparin VIAL(*) 5000 UNITS/ML VIAL (FIVE THOUSAND) SUBCUT SCH (09:51)
[2016-05-30] MEDS: Sevelamer TAB* 800 MG PO SCH ×3 (10:35→18:13)
[2016-05-30] MEDS: LORazepam TAB(*) 1 MG PO PRN ×2 (12:46→19:19)
--- NOTE | 2016-05-30 15:37 | PN ---
Progress Note - Progress Note Note: Pulm consult f/u note 05/30/16. Pt was seen and examined at bedside this am. No new complaints. Active Medications Generic Name Dose Route Start Last Admin Trade Name Freq PRN Reason Stop Dose Admin Albuterol/Ipratropium 1 neb 05/25/16 12:38 Duoneb Neb.Tonya* INH Q6H PRN SOB/WHEEZING Amlodipine Besylate 2.5 mg 05/28/16 15:16 05/30/16 09:50 Norvasc Tab* PO 2.5 mg DAILY [facility] Administration Aspirin 81 mg 05/26/16 09:00 05/30/16 09:50 Aspirin Ec Low Dose* PO 81 mg DAILY [facility] Administration Atorvastatin Calcium 80 mg 05/27/16 17:00 05/29/16 17:26 Lipitor* PO 80 mg 1700 [facility] Administration Cinacalcet 30 mg 05/26/16 09:00 05/30/16 09:47 Sensipar Tab* PO 30 mg DAILY [facility] Administration Clonidine HCl 0.3 mg 05/26/16 14:00 05/30/16 14:45 Catapres Tab* PO 0.3 mg TID [facility] Administration Diltiazem HCl 240 mg 05/26/16 09:00 05/30/16 09:47 Cardizem Cd Cap* PO 240 mg DAILY [facility] Administration Famotidine 20 mg 05/25/16 15:00 05/30/16 09:47 Pepcid Tab* PO 20 mg DAILY [facility] Administration Gabapentin 100 mg 05/25/16 14:00 05/30/16 14:45 Neurontin Cap(*) PO 100 mg TID [facility] Administration Heparin Sodium (Porcine) 5,000 units 05/25/16 21:00 05/30/16 09:51 Heparin Vial(*) SUBCUT 5,000 units Q12HR [facility] Administration Lorazepam 1 mg 05/28/16 02:29 05/30/16 12:46 Ativan Tab(*) PO 1 mg Q4H PRN Administration ANXIETY Metoprolol Succinate 25 mg 05/27/16 21:00 05/30/16 09:50 Toprol Xl Tab* PO 25 mg BID [facility] Administration Metoprolol Tartrate 5 mg 05/26/16 01:20 05/28/16 11:52 Lopressor Iv* IV 5 mg Q4H PRN Administration HEART RATE/PULSE Montelukast Sodium 10 mg 05/26/16 09:00 05/30/16 09:47 Singulair Tab* PO 10 mg DAILY [facility] Administration Morphine Sulfate 2 mg 05/26/16 10:27 05/30/16 09:51 Morphine Inj (Syringe)* IV 2 mg Q1H PRN Administration PAIN Nicotine 1 patch 05/29/16 15:00 05/30/16 09:45 Nicotine Patch 21 Mg/24 Hr* TRANSDERM 1 patch DAILY [facility] Administration Oxycodone HCl 5 mg 05/25/16 14:56 05/29/16 05:57 Roxycodone Tab* PO 5 mg Q6H PRN Administration PAIN - CHEST Pharmacy Profile Note 1 note 05/25/16 22:00 05/30/16 00:56 Nitro Patch/Oint Remove* PATCH OFF Not Given DAILY@2200 [facility] Pharmacy Profile Note 1 note 05/29/16 21:00 05/30/16 00:54 Nicotine Patch Removal Note* PATCH OFF 1 note 2100 [facility] Administration Sertraline HCl 25 mg 05/26/16 09:00 05/30/16 09:47 Zoloft* PO 25 mg DAILY [facility] Administration Sevelamer Carbonate 4,800 mg 05/27/16 07:30 05/30/16 12:58 Renvela Tab* PO Not Given AC [facility] Throat Lozenges 1 harry 05/26/16 19:02 05/30/16 05:46 Chloraseptic Harry* MT 1 harry Q2H PRN Administration THROAT PAIN Vital Signs Temp Pulse Resp BP Pulse Ox 98.0 F 65 18 123/95 95 05/30/16 07:59 05/30/16 09:47 05/30/16 14:45 05/30/16 07:59 05/30/16 09:47 Gen: lying in bed flat, in NAD HEENT: PERRLA, Clear Oropharnyx, Mucous Membranes Moist Neck: Trachea Midline Respiratory: Symmetrical Chest Expansion and Respiratory Effort, Clear to Auscultation Cardiovascular: S1 S2 irregular, 2-3 / 6 systolic murmer sternal border Abdominal: NL Sounds; No Tenderness; No Distention, No Hepatosplenomegaly, active BS, soft. Extremities: No Edema Skin: No Rash or Ulcers Neurological: Alert and Oriented x 3, NL Muscle Strength and Tone Laboratory Results - last 24 hr 05/29/16 05/30/16 05/30/16 07:30 05:26 05:26 WBC 5.5 RBC 2.26 L Hgb 7.4 L Hct 22 L MCV 99 H MCH 33 H MCHC 33 RDW 16 H Plt Count 144 L MPV 8 Neut % (Auto) 65.9 Lymph % (Auto) 17.1 L [place] % (Auto) 12.3 H Eos % (Auto) 3.5 Baso % (Auto) 1.2 Absolute Neuts (auto) 3.6 Absolute Lymphs (auto) 0.9 L Absolute Monos (auto) 0.7 Absolute Eos (auto) 0.2 Absolute Basos (auto) 0.1 Absolute Nucleated RBC 0.01 Nucleated RBC % 0.2 Sodium 132 L Potassium 4.4 Chloride 96 L Carbon Dioxide 30 Anion Gap 6 BUN 19 Creatinine 6.09 H Est GFR ( Amer) 9.6 Est GFR (Non-Af Amer) 7.5 BUN/Creatinine Ratio 3.1 L Glucose 93 Calcium 9.2 Blood Type B Positive Antibody Screen Negative Crossmatch See Detail 05/26/16 05/27/16 05/28/16 12:44 05:40 04:12 Troponin I 16.21 H* 11.72 H* 8.07 H* Diagnostic Imaging: ECHO: severe LVH, EF 55-60%, no abnormal pericardial fluid collection. Moderate to severe , leaflets of her prosthetic valve appear calcified with decreased excursion. CT chest: Diffuse air space opacities b/l. I/R: 45 yo female, complex and extensive PMHx including ESRD on HD (HTN), chronic afib, AVR, severe LVH with EF 65% and diastolic dysfunction, recent hemoptosis, resp failure with elevated INR, DVT's and PE's who presented with CP , SOB due to volume overload, ECG showed severe ST depression and Troponin elevation No further episodes of hemoptysis this admission however with recurrent episodes in the past Anemic with possible stress ischemia in setting of , received 1 unit pRBC last night Being considered for diagnostic cath by Dr Burris Might not be candidate for anticoagulants given concern with alveolar hemorrage Serological w/u pending for evaluation of vasculitis No plan for bronchoscopy at this time given recent NSTEMI Rest of management as per cardiology D/w Nisha Hudson NP
--- NOTE | 2016-05-30 16:11 | PN ---
Subjective Date of Service: 05/30/16 Interval History: Patient seen and examined at bedside. She reports persistent CP that intermittently gets better. She is very tearful because her children report not having enough food or money and she has no one able to peoples a check for her. SW following to assist. She reports her breathing feels worse due to anxiety. She denies abd pain, n/v. Telemetry: A fib 80s Family History: Unchanged from Admission Social History: Unchanged from Admission Past Medical History: Unchanged from Admission Objective Active Medications: Albuterol/Ipratropium (Duoneb Neb.Tonya*) 1 neb INH Q6H PRN PRN Reason: SOB/WHEEZING Amlodipine Besylate (Norvasc Tab*) 2.5 mg PO DAILY [facility] Last Admin: 05/30/16 09:50 Dose: 2.5 mg Aspirin (Aspirin Ec Low Dose*) 81 mg PO DAILY [facility] Last Admin: 05/30/16 09:50 Dose: 81 mg Atorvastatin Calcium (Lipitor*) 80 mg PO 1700 [facility] Last Admin: 05/29/16 17:26 Dose: 80 mg Cinacalcet (Sensipar Tab*) 30 mg PO DAILY [facility] Last Admin: 05/30/16 09:47 Dose: 30 mg Clonidine HCl (Catapres Tab*) 0.3 mg PO TID [facility] Last Admin: 05/30/16 14:45 Dose: 0.3 mg Diltiazem HCl (Cardizem Cd Cap*) 240 mg PO DAILY [facility] Last Admin: 05/30/16 09:47 Dose: 240 mg Famotidine (Pepcid Tab*) 20 mg PO DAILY [facility] Last Admin: 05/30/16 09:47 Dose: 20 mg Gabapentin (Neurontin Cap(*)) 100 mg PO TID [facility] Last Admin: 05/30/16 14:45 Dose: 100 mg Heparin Sodium (Porcine) (Heparin Vial(*)) 5,000 units SUBCUT Q12HR [facility] Last Admin: 05/30/16 09:51 Dose: 5,000 units Lorazepam (Ativan Tab(*)) 1 mg PO Q4H PRN PRN Reason: ANXIETY Last Admin: 05/30/16 12:46 Dose: 1 mg Metoprolol Succinate (Toprol Xl Tab*) 25 mg PO BID [facility] Last Admin: 05/30/16 09:50 Dose: 25 mg Metoprolol Tartrate (Lopressor Iv*) 5 mg IV Q4H PRN PRN Reason: HEART RATE/PULSE Last Admin: 05/28/16 11:52 Dose: 5 mg Montelukast Sodium (Singulair Tab*) 10 mg PO DAILY [facility] Last Admin: 05/30/16 09:47 Dose: 10 mg Morphine Sulfate (Morphine Inj (Syringe)*) 2 mg IV Q1H PRN PRN Reason: PAIN Last Admin: 05/30/16 09:51 Dose: 2 mg Nicotine (Nicotine Patch 21 Mg/24 Hr*) 1 patch TRANSDERM DAILY [facility] Last Admin: 05/30/16 09:45 Dose: 1 patch Oxycodone HCl (Roxycodone Tab*) 5 mg PO Q6H PRN PRN Reason: PAIN - CHEST Last Admin: 05/29/16 05:57 Dose: 5 mg Pharmacy Profile Note (Nitro Patch/Oint Remove*) 1 note PATCH OFF DAILY@2200 [facility] Last Admin: 05/30/16 00:56 Dose: Not Given Pharmacy Profile Note (Nicotine Patch Removal Note*) 1 note PATCH OFF 2100 [facility] Last Admin: 05/30/16 00:54 Dose: 1 note Sertraline HCl (Zoloft*) 25 mg PO DAILY [facility] Last Admin: 05/30/16 09:47 Dose: 25 mg Sevelamer Carbonate (Renvela Tab*) 4,800 mg PO AC [facility] Last Admin: 05/30/16 12:58 Dose: Not Given Throat Lozenges (Chloraseptic Harry*) 1 harry MT Q2H PRN PRN Reason: THROAT PAIN Last Admin: 05/30/16 05:46 Dose: 1 harry Vital Signs 05/29/16 05/29/16 05/29/16 17:49 18:35 18:49 Temperature Pulse Rate Respiratory 18 16 16 Rate Blood Pressure (mmHg) O2 Sat by Pulse Oximetry 05/29/16 05/29/16 05/29/16 19:28 20:00 20:30 Temperature 97.9 F Pulse Rate 71 71 Respiratory 16 14 16 Rate Blood Pressure 103/62 (mmHg) O2 Sat by Pulse 97 Oximetry 05/29/16 05/29/16 05/29/16 20:33 20:35 21:33 Temperature Pulse Rate Respiratory 16 14 14 Rate Blood Pressure (mmHg) O2 Sat by Pulse Oximetry 05/29/16 05/30/16 05/30/16 22:30 00:27 00:38 Temperature 98.0 F 98.0 F Pulse Rate 62 60 Respiratory 16 20 16 Rate Blood Pressure 113/66 107/68 (mmHg) O2 Sat by Pulse 97 Oximetry 05/30/16 05/30/16 05/30/16 01:03 01:12 02:12 Temperature 98.6 F Pulse Rate 67 Respiratory 16 16 16 Rate Blood Pressure 106/73 (mmHg) O2 Sat by Pulse 99 Oximetry 05/30/16 05/30/16 05/30/16 03:12 03:36 05:46 Temperature 98.2 F 98.2 F Pulse Rate 64 62 Respiratory 20 18 18 Rate Blood Pressure 115/80 104/63 (mmHg) O2 Sat by Pulse 99 99 Oximetry 05/30/16 05/30/16 05/30/16 06:46 07:59 08:00 Temperature 98.0 F Pulse Rate 68 Respiratory 16 16 18 Rate Blood Pressure 123/95 (mmHg) O2 Sat by Pulse 97 Oximetry 05/30/16 05/30/16 05/30/16 09:47 09:51 10:51 Temperature Pulse Rate 65 Respiratory 20 18 18 Rate Blood Pressure (mmHg) O2 Sat by Pulse 95 Oximetry 05/30/16 05/30/16 05/30/16 11:47 12:46 14:45 Temperature Pulse Rate Respiratory 18 18 18 Rate Blood Pressure (mmHg) O2 Sat by Pulse Oximetry 05/30/16 05/30/16 14:48 15:55 Temperature 98.5 F 97.6 F Pulse Rate 65 67 Respiratory 18 16 Rate Blood Pressure 121/78 153/97 (mmHg) O2 Sat by Pulse 97 100 Oximetry Oxygen Devices in Use Now: Nasal Cannula Appearance: Female patient, sitting up in bed, tearful Eyes: PERRLA Ears/Nose/Mouth/Throat: Clear Oropharnyx, Mucous Membranes Moist Neck: NL Appearance and Movements; NL JVP Respiratory: Symmetrical Chest Expansion and Respiratory Effort, Clear to Auscultation - diminished Cardiovascular: - - irregularly irregular rhythm, 2-3/6 systolic murmur Abdominal: NL Sounds; No Tenderness; No Distention Extremities: No Edema Skin: No Rash or Ulcers Neurological: Alert and Oriented x 3 Result Diagrams: 05/30/16 05:26 05/30/16 05:26 Additional Lab and Data: Lab Results 05/25/16 05/25/16 Range/Units 10:25 10:25 WBC 10.7 (3.5-10.8) 10^3/ul RBC 2.29 L (4.0-5.4) 10^6/ul Hgb 7.6 L (12.0-16.0) g/dl Hct 23 L (35-47) % MCV 98 H (80-97) fL MCH 33 H (27-31) pg MCHC 34 (31-36) g/dl RDW 16 H (10.5-15) % Plt Count 195 (150-450) 10^3/ul MPV 8 (7.4-10.4) um3 Neut % (Auto) 77.2 (38-83) % Lymph % (Auto) 9.4 L (25-47) % [place] % (Auto) 11.1 H (1-9) % Eos % (Auto) 1.3 (0-6) % Baso % (Auto) 1.0 (0-2) % Absolute Neuts (auto) 8.3 H (1.5-7.7) 10^3/ul Absolute Lymphs (auto) 1.0 (1.0-4.8) 10^3/ul Absolute Monos (auto) 1.2 H (0-0.8) 10^3/ul Absolute Eos (auto) 0.1 (0-0.6) 10^3/ul Absolute Basos (auto) 0.1 (0-0.2) 10^3/ul Absolute Nucleated RBC 0 10^3/ul Nucleated RBC % 0 INR (Anticoag Therapy) 0.98 (0.89-1.11) APTT 66.3 H (26.0-36.3) seconds Microbiology and Other Data: Microbiology 05/25/16 11:25 Nasal Screen MRSA (PCR)(RON) - Final Nasal Mrsa Negative Assess/Plan/Problems-Billing Assessment: Ms. Joseph is a 45 yo female with a PMH of ESRD on HD, HTN, chronic afib, AVR, resp failure with elevated INR, CHF and severe LVH who presented on 05/25/16 with CP and SOB secondary to NSTEMI, decompensated heart failure, and fluid overload. - Patient Problems (1) Chest pain Code(s): R07.9 - CHEST PAIN, UNSPECIFIED Comment: Ideally would like patient to have diagnostic cath, but patient's anemia is too severe. Will transfuse PRBC in dialysis tomorrow. Presented with CP, SOB, elevated troponin, and ST depressions likely secondary to ACS. Unable to cath patient upon presentation to determine if this was secondary to TX or demand ischemia Still with positional chest pain that improves with morphine. Patient initially not a candidate for interventional cardiology due to recent hemoptysis and pulmonary hemorrhage. Appreciate cardiology and pulmonology consults. (2) Anemia Code(s): D64.9 - ANEMIA, UNSPECIFIED Comment: Persistent anemia, secondary to chronic disease? Epogen received in dialysis Plan to transfuse 2 units tomorrow in dialysis (3) Congestive heart failure SNOMED Code(s): 71415150 Comment: EF 55-60%, severe LVH Fluid restriction. Dialysis management per nephrology. Continue daily weights, strict I/O, and low sodium/renal diet. (4) COPD (chronic obstructive pulmonary disease) Code(s): J44.9 - CHRONIC OBSTRUCTIVE PULMONARY DISEASE, UNSPECIFIED Comment: Stable. Continue PRN nebulizers. (5) End stage renal disease on dialysis Code(s): N18.6 - END STAGE RENAL DISEASE; Z99.2 - DEPENDENCE ON RENAL DIALYSIS Comment: Continue dialysis on her usual regimen. Phosphorus binder with meals (6) Atrial fibrillation Code(s): I48.91 - UNSPECIFIED ATRIAL FIBRILLATION Comment: Rate controlled. Off warfarin with recent pulmonary hemorrhage. Continue diltiazem and metoprolol. (7) History of DVT (deep vein thrombosis) Code(s): Z86.718 - PERSONAL HISTORY OF OTHER VENOUS THROMBOSIS AND EMBOLISM Comment: SQ heparin while in hospital; currently off warfarin due to previous pulmonary hemorrhage. (8) Hypertension Code(s): I10 - ESSENTIAL (PRIMARY) HYPERTENSION Comment: Normotensive with some soft BPs. Continue metoprolol, dilitazem, amlodipine, clonidine and adjust accordingly. (9) DVT prophylaxis Comment: SQ heparin Status and Disposition: Inpatient admission. Unable to have diagnostic catheterization while anemic. Consider outpatient follow-up vs transfer.
--- NOTE | 2016-05-30 17:14 | PN ---
Hospitalist Progress Note Discussed need for transfer with Dr. Sandoval and Dr. Ceja in order to receive cath and appropriate interventions; patient agreed to transfer and was accepted by Dr. Radha Trejo at [facility].
[2016-05-30] MEDS ORDERED: Ondansetron INJ* 2 MG/ML VIAL IV ONE (18:21)
--- NOTE | 2016-05-30 19:15 | DS ---
MEDICINE TRANSFER SUMMARY: DATE OF ADMISSION: 05/25/16 DATE OF TRANSFER: 05/30/16 PROVIDER: Sony Fuller NP. ATTENDING PHYSICIAN: Dr. Rafael Redman* (dictated by Sony Fuller NP). CONSULTING PHYSICIAN: Dr. Ap Brown, Dr. Tali Horvath, Dr. Ap Sandoval, Dr. Rika Ceja. PRIMARY CARE PHYSICIAN: Dr. Faith Burns. PRIMARY DISCHARGE DIAGNOSES: 1. Chest pain, suspected acute coronary syndrome/non-ST segment elevation myocardial infarction . 2. Aortic valve stenosis. 3. Anemia, suspect anemia of chronic disease. 4. Volume overload. SECONDARY DISCHARGE DIAGNOSES: 1. Chronic obstructive pulmonary disease. 2. End-stage renal disease on dialysis. 3. Chronic atrial fibrillation, no longer on Coumadin due to recent pulmonary hemorrhage. 4. Hypertension. 5. Hyperlipidemia. 6. Coronary artery disease. 7. Chronic diastolic congestive heart failure. 8. History of deep vein thrombosis and pulmonary embolism. 9. History of superior vena cava syndrome. 10. Depression. 11. Anxiety. PAST SURGICAL HISTORY: Includes: 1. CABG. 2. Mitral aortic valve replacement. 3. Hysterectomy. 4. Right knee arthroscopy. MEDICATIONS AT TIME OF TRANSFER: 1. DuoNeb one neb inhaler q.6 hours p.r.n. 2. Amlodipine 2.5 mg daily. 3. Aspirin 81 mg daily. 4. Atorvastatin 80 mg daily. 5. Sensipar 30 mg daily. 6. Catapres 0.3 mg t.i.d. 7. Cardizem CD 240 mg daily. 8. Pepcid 20 mg daily. 9. Neurontin 100 mg t.i.d. 10. Heparin 5000 units subcu q.12 hours. 11. Ativan 1 mg q.4 hours p.r.n. 12. Toprol-XL 25 mg b.i.d. 13. Singulair 10 mg daily. 14. Morphine 2 mg IV q. 1 hour p.r.n. 15. Nicotine patch 21 mg. 16. Oxycodone 5 mg q.6 hours p.r.n. 17. Zoloft 25 mg daily. 18. Renvela 4800 mg before meals. 19. Chloraseptic throat lozenges 1 lozenge q.2 hours p.r.n. DIAGNOSTIC STUDIES: On this admission, echocardiogram. Conclusion: Severe concentric left ventricular left ventricular hypertrophy as observed. Global left ventricular wall motion and contractility are within normal limits. The estimated ejection fraction 50% to 55%. The right ventricular global systolic function is normal. A porcine bioprosthetic aortic valve is present. The prosthetic aortic valve leaflets are thickened. There is mild aortic regurgitation. The bioprosthetic aortic valve appears stenotic and additionally there is probably an element of valve mismatch with a mean gradient of 54.16 mmHg. There is an MV sclerosis with moderate mitral regurgitation. There is qpihvxpz-vu-oygfhe tricuspid regurgitation. There is evidence of geim-ly-hcbmzldd pulmonary hypertension: 40 mmHg. The pericardia appears normal. No significant changes compared with the echo of 05/14/16. HOSPITAL COURSE OF STAY: Please also refer to the H and P provided by Dr. Ap Brown, pediatric anesthesiologist, on 05/25/16. In summary, Ms. Joseph is a 45-year-old dialysis patient with extensive medical history as listed above, who is well known to the hospitalist group, who was recently discharged from the hospital in late April on 05/22/16. During the admission from 05/14/16 to 05/22/16, the patient was admitted for hemoptysis and was treated for pneumonia. She experienced respiratory failure during this admission and was seen in consult by pediatric anesthesiologist Dr. Humphrey of the Critical Care Unit. She did require intubation and was able to be extubated and sent to the medical floor. She was able to go home with no supplemental oxygen. The patient was previously on Coumadin prior to that admission because of her chronic atrial fibrillation and her history of DVT and PE; however, because of her recent pulmonary hemorrhage, her anticoagulation was held. She then returned to the hospital on 05/25, as previously mentioned, with shortness of breath and chest pain. With this admission, the patient reported substernal positional chest pain. Her chest x- ray showed pulmonary edema. She stated that she had been drinking a lot of water because of dry mouth and had a 7-kg weight gain since discharge from the previous admission. She was seen by Cardiology as well because upon presentation the patient was found to have AFib with RVR and severe ST depression in the inferolateral leads. However, she was not able to undergo interventional catheterization due to her bleeding risks. The patient was dialyzed here in the hospital and treated medically for her symptoms with IV beta-blockers and Nitro, which did provide her relief. Additionally, the patient has been treated with morphine. She does still complain of positional chest pain. We had a new order for patient to start Carafate, as GERD may be contributing to her CP; however, she has not yet received her first dose. Per Cardiology's last note, it was felt that the patient would benefit from a diagnostic catheterization; however, our elocution teacher was concerned for the increased risk of going that here given the patient's many comorbidities and risk factors. We did also have a Pulmonology consult with Dr. Ceja, who agrees with a need for catheterization in terms of the patient' s pulmonary condition, she is concerned for potential vasculitis or pulmo renal disease. At this time, she recommends a blood transfusion, and the patient did receive 1 unit on 05/29/16, and tolerated it well. Labs are drawn and are still pending for workup for autoimmune disease. She was last dialyzed on 05/29 and is due for dialysis on 05/31/16. The patient's dialysis was coordinated through the leadership coach, Dr. Franck Osorio. CONCERNS AT DISCHARGE: The patient will be discharged to [facility] in [place] on 05/30/16, with a plan to be accepted by concrete stone finisher, Dr. Benny Hernández. DIET: Renal diet, patient is on a strict 1500 mL fluid restriction ACTIVITY: As tolerated. CONDITION: Improved, guarded. DISPOSITION: To [facility] at [place]. TIME SPENT: Time spent on this transfer was approximately 45 minutes. Again, this is only a brief summary of the patient's hospital course of stay. For full details, please refer to the full medical records. If you have any further questions, please feel free to contact me at [phone]. SONY FULLER NP CC: Dr. Osorio; Dr. Horvath; Dr. Sandoval; Dr. Ceja; Dr. Faith Burns* [id number]/[facility] #: [id number] [facility]
[2016-05-30] MEDS: Atorvastatin* 80 MG TAB PO SCH (19:19)
[2016-05-30 20:15] VITALS: BP 126/92
[2016-05-31 15:17] LABS: Rheumatoid Factor <15 IU/mL (<15)
[2016-05-31 16:03] LABS: Complement C3 111 mg/dL (75 - 175)
[2016-05-31 17:26] LABS: SS-B/La Antibody 0.3 U
== END 2016-05-30 19:37 | disposition short-term general hospital (02) | DRG 280 ==
LOC: ED 10:11 → ICU 11:19 → MEDTELE 05-27 12:24
PROVIDERS: ADMIT Internal Medicine Critical Care Medicine; ATTEND Hospitalist
PROC: 30233N1 Transfusion of Nonautologous Red Blood Cells into Peripheral Vein, Percutaneous Approach (ICD-10-PCS; 2016-05-25)
PROC: 5A1D00Z (ICD-10-PCS; principal; 2016-05-27)
DX: I21.4 Non-ST elevation (NSTEMI) myocardial infarction (principal); N18.6 End stage renal disease; I50.33 Acute on chronic diastolic (congestive) heart failure; I95.9 Hypotension, unspecified; I27.2 Other secondary pulmonary hypertension; T82.857A Stenosis of other cardiac prosthetic devices, implants and grafts, initial encounter; I13.2 Hypertensive heart and chronic kidney disease with heart failure and with stage 5 chronic kidney disease, or end stage renal disease; I07.1 Rheumatic tricuspid insufficiency; D63.8 Anemia in other chronic diseases classified elsewhere; J44.9 Chronic obstructive pulmonary disease, unspecified; Z99.2 Dependence on renal dialysis; F41.9 Anxiety disorder, unspecified; F32.9 Major depressive disorder, single episode, unspecified; Z86.718 Personal history of other venous thrombosis and embolism; Z86.711 Personal history of pulmonary embolism; E78.5 Hyperlipidemia, unspecified; I48.2 Chronic atrial fibrillation; K21.9 Gastro-esophageal reflux disease without esophagitis; Z88.0 Allergy status to penicillin; Z88.1 Allergy status to other antibiotic agents; Z88.8 Allergy status to other drugs, medicaments and biological substances; J45.909 Unspecified asthma, uncomplicated; M19.90 Unspecified osteoarthritis, unspecified site; Z87.891 Personal history of nicotine dependence; Z91.041 Radiographic dye allergy status; Y92.9 Unspecified place or not applicable; Y83.1 Surgical operation with implant of artificial internal device as the cause of abnormal reaction of the patient, or of later complication, without mention of misadventure at the time of the procedure
CPT/HCPCS: 36415; 71010; 80048; 80053; 82550; 82553; 82785; 83516; 83520; 83605; 83721; 83880; 84484; 85025; 85027; 85610; 85730; 86038; 86160; 86225; 86235; 86431; 86850; 86900; 86901; 86922; 87641; 90935; 93005; 93306; 94760; 99285; A9270-GY; G0257; J0885; J1160; J1644; J2270; J2405; P9016

== ENCOUNTER 2016-07-23 13:27 | Emergency (ER) | payer MEDICARE, MEDICAID ==
[2016-07-23 16:19] LABS: Comments Flag Yes; Hematocrit 20 % (35-47); Hemoglobin 6.8 g/dl (12.0-16.0); Mean Corpuscular HGB Conc 34 g/dl (31-36); Mean Corpuscular Hemoglobin 33 pg (27-31); Mean Corpuscular Volume 99 fL (80-97); Mean Platelet Volume 9 um3 (7.4-10.4); Red Blood Count 2.05 10^6/ul (4.0-5.4); Red Cell Distribution Width 16 % (10.5-15); White Blood Count 7.8 10^3/ul (3.5-10.8)
[2016-07-23 16:29] LABS: BUN/Creatinine Ratio 5.8 (8-20); Calcium 8.6 mg/dL (8.6-10.3); EGFR African American 18.4 (>60); EGFR Non-African American 14.3 (>60)
[2016-07-23] MEDS ORDERED: Phytonadione Oral Solution* 5 MG/25 ML UDC PO ONE (17:08)
[2016-07-23 17:44] VITALS: BP 140/92
--- NOTE | 2016-07-23 20:29 | RAD ---
Indication: Bleeding and pain at left thigh hemodialysis graft site Comparison: None. Technique: Duplex ultrasound with spectral analysis was used to study the left upper thigh graft. Report: A fistula is identified which extends from the brachial artery to the cephalic vein. Inflow artery and anastomosis: Peak systolic and end-diastolic left common femoral arterial velocity just proximal to the anastomosis: 161 and 91 cm/s. Peak systolic and end-diastolic velocity at the anastomosis: 1044 cm/s and 560cm/s Peak systolic and end-diastolic proximal anastomosis velocity: 435 cm/s and 280cm/s. Proximal venous outflow: Distal to the venous anastomosis the venous velocity is measured at 374 cm/s. Arteries distal to the anastomosis: Distal to the anastomosis with the left common femoral artery, there is adequate arterial flow with systolic and diastolic velocities measured at 199 and 69 cm/s. IMPRESSION: Systolic velocities measuring up to 1044 cm/s at the proximal left thigh hemodialysis graft, with subsequent drop more distally in the graft of 70%, indicate high-grade stenosis. Recommend prompt fistulography to avoid complete occlusion of the graft. Findings and recommendations were discussed with Dr. Orantes over the telephone at approximately 1715 hours on July 23, 2016.
--- NOTE | 2016-08-03 17:40 | ED ---
Itzel Greenwood Matthew, scribed for Malik Egan MD on 07/23/16 at 1407 . Lower Extremity - HPI Summary HPI Summary: A 45 y/o female presents to the ED with bleeding from her dialysis site on her left upper thigh for the past 2 hours. The patient went to dialysis today and was able to complete her dialyses. However, the patient is currently on Warfarin and the arterial site has continued to bleed for the past 2 hours. - History of Current Complaint Chief Complaint: EDGeneral Stated Complaint: LT LEG LAC/SENT FROM dialysis Time Seen by Provider: 07/23/16 13:42 Hx Obtained From: Patient Severity Currently: None Pain Intensity: 0 Pain Scale Used: 0-10 Numeric Timing: Constant Location: Is Discrete @ - upper left thigh Associated Signs And Symptoms: Positive: Negative Able to Bear Weight: Yes - Allergies/Home Medications Allergies/Adverse Reactions: Allergies Allergy/AdvReac Type Severity Reaction Status Date / Time Iodixanol [From Visipaque] Allergy Severe Airway Verified 07/26/16 12:18 Obstruction Lisinopril Allergy Severe Difficulty Verified 07/26/16 12:18 Breathing Penicillins Allergy Severe HIVES,SWELLING Verified 07/26/16 12:18 THROAT Cephalosporins Allergy not Verified 07/26/16 12:18 specified PMH/Surg Hx/FS Hx/Imm Hx Endocrine/Hematology History: Reports: Hx Anticoagulant Therapy, Hx Blood Transfusions, Hx Unexplained Bleeding Denies: Hx Blood Disorders, Hx Bone Marrow Disease, Hx Diabetes, Hx Systemic Lupus Erythematosus, Hx Sickle Cell Disease, Hx Thyroid Disease, Hx Anemia, Other Endocrine/Hematological Disorders Cardiovascular History: Reports: Hx Cardiomegaly, Hx Congestive Heart Failure, Hx Coronary Artery Disease, Hx Deep Vein Thrombosis, Hx Hypercholesterolemia, Hx Hypertension, Hx Valvular Heart Disease, Other Cardiovascular Problems/ Disorders - 2 artificial heart valves; Hx of endocarditis Denies: Hx Aneurysm, Hx Angina, Hx Angioplasty, Hx Auto Implanted Cardiovert Defib, Hx Cardiac Arrest, Hx Congenital Heart Disease, Hx Embolism, Hx Hypotension, Hx Pacemaker/ICD, Hx Peripheral Vascular Disease, Hx Rheumatic Fever, Hx Syncope Respiratory History: Reports: Hx Asthma, Hx Chronic Obstructive Pulmonary Disease (COPD), Hx Pneumonia, Hx Pulmonary Edema, Hx Pulmonary Embolism, Other Respiratory Problems/Disorders - PULMONARY EDEMA Denies: Hx Chronic Bronchitis, Hx Cystic Fibrosis, Hx Lung Cancer, Hx Pleural Effusion, Hx Seasonal Allergies, Hx Sleep Apnea History: Reports: Hx Chronic Renal Failure, Hx Dialysis - ESRD, [place] ON // FRI, Hx Renal Disease Denies: Hx Benign Prostatic Hyperplasia, Hx Kidney Infection, Hx Kidney Stones, Other Problems/Disorders Musculoskeletal History: Reports: Hx Arthritis Denies: Hx Back Problems, Hx Bursitis, Hx Congenital Bone Abnormalities, Hx Fibromyalgia, Hx Gout, Hx Orthopedic Injury, Hx Osteoporosis, Hx Scoliosis, Hx Tendonitis, Other Musculoskeletal History Sensory History: Reports: Hx Contacts or Glasses - glasses are at home Denies: Hx Hearing Aid Opthamlomology History: Reports: Hx Contacts or Glasses - glasses are at home Neurological History: Denies: Hx Seizures Psychiatric History: Reports: Hx Anxiety, Hx Depression Denies: Hx Attention Deficit Hyperactivity Disorder, Hx Eating Disorder, Hx Panic Disorder, Hx Post Traumatic Stress Disorder, Hx Inpatient Treatment, Hx Community Mental Health Tx, Hx Schizophrenia, Hx Bipolar Disorder, Hx Suicide Attempt, Hx of Violent Episodes Against Others, Hx Substance Abuse, Other Psychiatric Issues/Disorders - Surgical History Surgery Procedure, Year, and Place: bilateral knees, dialysis tube placed in abdomen( out), fistula tube placement in arm for dialysis Lt arm has been revised. waiting out ok to use [id number], open heart valve replacement, hysterectomy Hx Anesthesia Reactions: No - Immunization History Date of Tetanus Vaccine: Unk Date of Influenza Vaccine: Unk Infectious Disease History: No Infectious Disease History: Reports: Hx of Known/Suspected MRSA - Negative this visit Denies: Hx Clostridium Difficile, Hx Hepatitis, Hx Human Immunodeficiency Virus (HIV), Hx Shingles, Hx Tuberculosis, Hx Known/Suspected VRE, Traveled Outside the [place] in Last 30 Days - Family History Known Family History: Positive: None - no malignant hyperthermia. no anesthesia rxn. Family History: No FHx of malignant hyperthermia or anesthesia reaction. - Social History Alcohol Use: None Hx Substance Use: No Substance Use Type: Reports: Marijuana Hx Tobacco Use: Yes Smoking Status (MU): Former Smoker Type: Cigarettes Amount Used/How Often: 1/2 PPD Length of Time of Smoking/Using Tobacco: 15 Have You Smoked in the Last Year: Yes Review of Systems Constitutional: Negative Negative: Fever, Chills Eyes: Negative Negative: Erythema ENT: Negative Negative: Sore Throat Cardiovascular: Negative Negative: Chest Pain Respiratory: Negative Negative: Shortness Of Breath Gastrointestinal: Negative Negative: Abdominal Pain, Vomiting, Nausea Genitourinary: Negative Negative: dysuria, hematuria Musculoskeletal: Negative Negative: Myalgia, Edema Skin: Other - Bleeding for her dialysis site Neurological: Negative Psychological: Normal All Other Systems Reviewed And Are Negative: Yes Physical Exam Triage Information Reviewed: Yes Vital Signs On Initial Exam: Initial Vitals Temp Pulse Resp BP Pulse Ox 97.9 F 111 20 146/96 100 07/23/16 13:29 07/23/16 13:29 07/23/16 13:29 07/23/16 13:29 07/23/16 13:29 Vital Signs Reviewed: Yes Appearance: Positive: No Pain Distress, Well-Nourished Skin: Positive: Other - Puncture wound to the upper left thigh with pulsating bloody discharge Head/Face: Positive: Other - Normocephalic; Atraumatic Eyes: Positive: Conjunctiva Clear ENT: Positive: Normal ENT inspection Dental: Negative: Cervical Lymphadenopathy Neck: Positive: Supple, Nontender, No Lymphadenopathy, Other: - Full ROM Respiratory/Lung Sounds: Positive: Breath Sounds Present, Other - Normal Effort. Negative: Rales, Rhonchi, Stridor, Tracheal Deviation, Wheezes Cardiovascular: Positive: Tachycardia - Mcandrews Coma Scale Coma Scale Total: 15 Procedures - Laceration/Wound Repair 1 Location: lower extremity Description: Irregular - Puncture wound Anesthesia: 1.0%, Epi Betadine Prep?: Yes Laceration/Wound Explored: clean Closure: Single Layer Suture Type: Prolene - 4.0 Number of Sutures: 1 Layer Closure?: No Diagnostics - Vital Signs Vital Signs Temp Pulse Resp BP Pulse Ox 07/23/16 13:29 97.9 F 111 20 146/96 100 - Laboratory Lab Results: Lab Results 07/23/16 07/23/16 07/23/16 Range/Units 15:55 15:55 15:55 WBC 7.8 (3.5-10.8) 10^3/ul RBC 2.05 L (4.0-5.4) 10^6/ul Hgb 6.8 L (12.0-16.0) g/dl Hct 20 L (35-47) % MCV 99 H (80-97) fL MCH 33 H (27-31) pg MCHC 34 (31-36) g/dl RDW 16 H (10.5-15) % Plt Count 186 (150-450) 10^3/ul MPV 9 (7.4-10.4) um3 INR (Anticoag Therapy) 6.34 H* (0.89-1.11) APTT 62.0 H (26.0-36.3) seconds Sodium 137 (133-145) mmol/L Potassium 4.0 (3.5-5.0) mmol/L Chloride 94 L (101-111) mmol/L Carbon Dioxide 37 H (22-32) mmol/L Anion Gap 6 (2-11) mmol/L BUN 20 (6-24) mg/dL Creatinine 3.46 H (0.51-0.95) mg/dL Est GFR ( Amer) 18.4 (>60) Est GFR (Non-Af Amer) 14.3 (>60) BUN/Creatinine Ratio 5.8 L (8-20) Glucose 91 (70-100) mg/dL Calcium 8.6 (8.6-10.3) mg/dL Result Diagrams: 07/23/16 15:55 07/23/16 15:55 Lab Statement: Any lab studies that have been ordered have been reviewed, and results considered in the medical decision making process. Re-Evaluation - Re-Evaluation First Eval Re-Evaluation Time: 15:14 Change: Improved Comment: The bleeding has stopped without pressure. Lower Extremity Course/Dx - Course Assessment/Plan: A 45 y/o female presents to the ED with bleeding from her dialysis site on her left upper thigh for the past 2 hours. The patient is on Warfarin. The puncture wound was sutured with one suture. Upon re-evaluation the wound had stopped bleeding without pressure. Efren Troy (Surgery) was consulted to evaluate the patient. Also discussed the case with Dr. Jiménez who recommended arterial US study to r/o arterial graft stenosis. The patient will be signed out to Dr. Orantes pending arterial study. - Diagnoses Provider Diagnoses: Hemorrhage of arteriovenous fistula - Physician Notifications Discussed Care of Patient With: Efren Troy (PA) at 14:24 -- Notified of patient' s history and will evaluate the patient. Dr. Jiménez (Nephrology) -- Notified of patient's history and recommended arterial US study to r/o arterial graft stenosis Discharge - Discharge Plan Condition: Stable Disposition: HOME Discharge Disposition Comment: The patient will be signed out to Dr. Orantes pending arterial study. Referrals: Diogo Burns MD [Primary Care Provider] - Additional Instructions: FOLLOW UP WITH VASCULAR SURGERY ON 07/25/16 IN [place] SCHEDULED FOR YOUR FAILING FISTULA.. YOU RECEIVED VITAMIN K 2.5MG IN THE EMERGENCY DEPARTMENT FOR YOUR ELEVATED INR. DO NOT TAKE YOUR WARFARIN/COUMADIN UNTIL YOU SEE THE VASCULAR SURGEON. RETURN TO THE EMERGENCY DEPARTMENT FOR ANY WORSENING OF YOUR CONDITION OR QUESTIONS OR CONCERNS. The documentation as recorded by the Itzel soas Matthew accurately reflects the service I personally performed and the decisions made by me, Malik Egan MD.
--- NOTE | 2016-08-09 12:17 | ED ---
Jose Greenwood Rebecca, scribed for Jorge Luis Orantes MD on 07/23/16 at 1645 . Progress - Progress Note Progress Note: Pt was signed out from Dr. Egan at 1500. Discussed care of pt with Dr. Osorio, performance tester, at 1633. Reports that pt has a followup with vascular this (2 days from today) and that she received dialysis today. On , the vascular surgeon can choose the appropriate course of action for patient, as is the soonest day that she can be dialyzed. Advised that patient keeps her followup as scheduled. - Results/Orders Results/Orders: Ultrasound localization: Impression: Systolic velocities measuring up to 1044 cm/s at the proximal left thigh hemodialysis graft, with subsequent drop more distally in the graft of 70%, indicate high-grade stenosis. Recommend prompt fistulography to avoid complete occlusion of the graft. Findings and recommendations were discussed with Dr. Orantes over the telephone at approximately 1715 hours on July 23, 2016. Re-Evaluation - Re-Evaluation First Eval Re-Evaluation Time: 16:57 Change: Improved Comment: No active bleeding. Course/Dx - Diagnoses Provider Diagnoses: LEG INJURY The documentation as recorded by the nessaibJose brian Rebecca accurately reflects the service I personally performed and the decisions made by , Jorge Luis Orantes MD.
== END 2016-07-23 17:42 | disposition home or self-care (01) ==
LOC: ED 13:27
DX: T82.838A Hemorrhage due to vascular prosthetic devices, implants and grafts, initial encounter (principal); I77.0 Arteriovenous fistula, acquired; Z99.2 Dependence on renal dialysis; Z87.891 Personal history of nicotine dependence
CPT/HCPCS: 36415; 80048; 85027; 85610; 85730; 93990; 99282

== ENCOUNTER 2016-07-26 11:45 | Inpatient (IN) | payer MEDICARE, MEDICAID ==
[2016-07-26] MEDS ORDERED: Aspirin Low Dose CHEW TAB* 81 MG PO ONE (11:46)
[2016-07-26] MEDS ORDERED: NS 0.9% 1000 ML* 1,000 ML IV ONE (11:49)
[2016-07-26 11:59] LABS: Hematocrit 20 % (35-47); Hemoglobin 6.6 g/dl (12.0-16.0); Mean Corpuscular HGB Conc 32 g/dl (31-36); Mean Corpuscular Hemoglobin 33 pg (27-31); Mean Corpuscular Volume 102 fL (80-97); Mean Platelet Volume 8 um3 (7.4-10.4); Red Cell Distribution Width 18 % (10.5-15); White Blood Count 5.3 10^3/ul (3.5-10.8)
[2016-07-26 12:05] LABS: Comments Flag Yes
[2016-07-26 12:07] LABS: Add Diff/Slide Review? Slide Review Added
[2016-07-26 12:15] LABS: Albumin 3.5 g/dL (3.2-5.2); BUN/Creatinine Ratio 7.2 (8-20); Calcium 7.8 mg/dL (8.6-10.3); EGFR Non-African American 4.7 (>60); Globulin 2.5 g/dL (2-4); Magnesium 2.7 mg/dL (1.9-2.7); Total Bilirubin 0.4 mg/dL (0.2-1.0)
[2016-07-26 12:20] LABS: Potassium 7.3 mmol/L (3.5-5.0)
[2016-07-26 12:21] LABS: Troponin I 0.04 ng/mL (<0.04)
[2016-07-26] MEDS ORDERED: Insulin REGULAR(*) 1 UNITS UNIT IV PUSH ONE ×2 (12:21→14:00)
[2016-07-26] MEDS ORDERED: Dextrose 50% Syringe 50 ML* 25 GM/50 ML SYRINGE IV PUSH PRN (12:21)
[2016-07-26] MEDS ORDERED: Sodium Polystyrene RECTAL* 30 GM/120 ML RECTAL.SUS PR ONE (12:22)
[2016-07-26] MEDS ORDERED: Albuterol 2.5 MG/3 ML NEB.SOL* (0.083%) INH ONE (12:23)
[2016-07-26] MEDS ORDERED: Insulin REGULAR(*) 1 UNITS UNIT ONE (12:27)
[2016-07-26 12:28] LABS: Hypochromasia 2+; Macrocytosis 1+
[2016-07-26 12:29] LABS: FIO2 6
[2016-07-26 12:32] LABS: PCO2 Arterial 30 mmHg (35-45)
[2016-07-26] MEDS: DOPamine 200 MG/250 ML IVPREM* 200 MG in PREMIX* 0 ML IV ONE ×2 (12:32→15:27)
--- NOTE | 2016-07-26 12:32 | RAD ---
INDICATION: Chest pain COMPARISON: May 27, 2016 TECHNIQUE: An AP portable view obtained at 1155 hours is submitted. FINDINGS: Bones/Soft Tissues: There are no acute bony findings. There is sternotomy Cardiomediastinal: The cardiac silhouette is enlarged, unchanged. There is interstitial congestion. Lungs: There are no infiltrates. Pleura: Small left-sided effusion. Other: None IMPRESSION: ENLARGED CORRECT SILHOUETTE WITH INTERSTITIAL CONGESTION AND SMALL LEFT-SIDED EFFUSION. NO APPRECIABLE CHANGE
[2016-07-26] MEDS ORDERED: Atropine SYRINGE* 0.1 MG/ML 10 ML SYRINGE (1 MG) IV PUSH ONE (12:33)
[2016-07-26] MEDS ORDERED: Calcium CHLORIDE 10% SYRINGE* 1 GM/10 ML IV ONE (12:33)
[2016-07-26] MEDS ORDERED: Ondansetron INJ* 2 MG/ML VIAL IV ONE (12:39)
[2016-07-26] MEDS ORDERED: Sodium Bicarbonate 8.4% IV* 50 ML VIAL IV ONE (12:41)
[2016-07-26] MEDS ORDERED: Sodium Bicarbonate 8.4%* 50 ML SYRINGE IV ONE (12:42)
[2016-07-26] MEDS ORDERED: Calcium Gluconate INJ* 1 GM in NS 0.9% 50 ML* 50 ML IV ONE ×4 (13:00)
[2016-07-26] MEDS ORDERED: Dextrose 50% Syringe 50 ML* 25 GM/50 ML SYRINGE IV PUSH ONE (14:00)
--- NOTE | 2016-07-26 14:06 | HP ---
H&P (Free Text) History and Physical: CRITICAL CARE MEDICINE DATE: 07/26/16 TIME: 1225 AREA DEVELOPMENT CONSULTANT: Jo REFERRING PROVIDER: Rio REASON/CHIEF COMPLAINT: cp HISTORY OF PRESENT ILLNESS: 45 F with extensive history including PE/DVT with coagulopathy 2014 leading to DAH x at least 2 in the past requiring intubations , with recent eval for failing left femoral fistula who missed HD yesterday and presented to ED today with CP. Severely bradycardic in ED and hypotensive. Labs pending but given pt extremis icu consulted. On Eval in ED pt awake, communicating weakly but even remembers me (or so she said she did). Weak regular respirations with marked slow afib with HR 30s on monitor and with pulse. Marked slow afib without injury current on ECG. Ordered for dopamine and atropine already at the ready. ED ordering the calcium gluconate, but as none available until pharmacy brings, I had ED nurse give push 1G Calcium chloride. HCO3 given as well. Albuterol neb and D50/insulin. Dopamine initiated but pt with hypoxic seziure and we lowered her head of the bed with her head to the side and she become more responsive. Atropine 05mg given with response. Dopamine inc to 15. Pt with nausea and retching but improving. Time to move to ICU. Nephrology being made aware of needs. PHYSICAL EXAM: Vital Signs: Reviewed and as above. SBP 70s. Neurologic: awake, communicating, but lethargic. HEENT: anicteric, mm dry. Cardiovascular: Heart tones distant, 3/6 courtney Respiratory: Not much adventitious bs given her ailments. 10L O2 with sats holding. Weak insp phase. Abdomen: soft nt Extremities: chronic changes, fistula left fem with stitch in place Access: per REVIEW OF SYSTEMS: As per HPI. PAST MEDICAL HISTORY: As per HPI. ESRD of HD, prior failed fistulas, fistula left fem, afib, htn, dyslipemia, MVR, SVC syndrome, anxiety/depression MEDICATIONS: Reviewed per last records. Unable to clarify at this time. ALLERGIES: Reviewed per records. dye with hive reaction SOCIAL HISTORY: Reviewed. no tob FAMILY HISTORY: Noncontributory at present. LABS: Reviewed. IMAGING: Reviewed. CXR relatively towards her baseline. ECG as above. MEDICATIONS: Reviewed. ASSESSMENT: 45 F with extensive history presenting with Cardiogenic shock sec to Symptomatic slow bradycardic afib sec to Symptomatic Hyperkalemia sec to Non-adherence with HD needs/ESRD Symptomatic anemia of chronic disease/ESRD Hypoxic encephalopathy due to cardiogenic shock. Chronic anticoagulation Vascuolopathy PLAN: Neurologic: hypoxic encephalopathy due to cardiogenic shock. no sedation needs currently. Re-eval chronic meds. Cardiovascular: Malperfused but trying to maintain. Should respond to dopamine gtt now and already responded to atropine. Respiratory: Maintaining sats and oxygenation. Ventilation holding, and now improving post atropine and correction of cardiogenic shock. Continued suppl support. Gastrointestinal: npo currently. sup Renal/Metabolic: Needs HD emergently. D/w nephro alreayd and they will arrange. Given adjunctive tx in ed. f/u Infectious Disease: no new infective burden. Hematology: Hb low and was down on her last check. She may need a higher value to maintain her and with her INR status always liable will give her a total of 2units prbcs with HD. hold coumdin tonight and consider resume tomorrow. Endocrine: can follow up glucose Musculoskeletal: bedrest currently and then resume progressive mobility Psych/Social: pt expresses understanding of plan but again mild encephalopathy present Supportive and preventative care as ordered. SUP: ppi VTE prophylaxis: coumadin Disposition: ICU Code Status: Full Critical Care Time: 75min Jennifer Humphrey DO
--- NOTE | 2016-07-26 14:14 | ED ---
Itzel Greenwood Matthew, scribed for Eduardo Pate MD on 07/26/16 at 1152 . HPI Chest Pain - HPI Summary HPI Summary: A 45 y/o female presents to the ED with chest pain since yesterday. The patient had a seizure [employer], which prompted her family to call EMS. Associated symptoms include bradycardia, SOB - since yesterday, AMS, and urinary incontinence. The patient is on dialysis and missed her dialysis appointment yesterday, because she was feeling ill. She has a Hx of seizures and her last seizure was a year ago. - History of Current Complaint Time Seen by Provider: 07/26/16 11:46 Hx Obtained From: Patient Onset/Duration: Atraumatic, Still Present Timing: Constant Initial Severity: Moderate Current Severity: Moderate Pain Intensity: 8 Pain Scale Used: 0-10 Numeric Associated Signs and Symptoms: Positive: Chest Pain, Shortness of Breath, Other : - Seizure, Urinary incontinence, AMS, bradycardia - Additional Pertinent History Primary Care Physician: CORINNA - Allergy/Home Medications Allergies/Adverse Reactions: Allergies Allergy/AdvReac Type Severity Reaction Status Date / Time Iodixanol [From Visipaque] Allergy Severe Airway Verified 07/26/16 12:18 Obstruction Lisinopril Allergy Severe Difficulty Verified 07/26/16 12:18 Breathing Penicillins Allergy Severe HIVES,SWELLING Verified 07/26/16 12:18 THROAT Cephalosporins Allergy not Verified 07/26/16 12:18 specified Home Medications: Home Medications ALPRAZolam TAB* [Xanax TAB*] 0.25 mg PO TID PRN 07/26/16 [History Confirmed 08/09] Clindamycin HCl 300 mg PO SEE INSTRUCTIONS 07/26/16 [History Confirmed 07/26/16] Diltiazem HCl Extended Release [Diltiazem HCl ER] 360 mg PO DAILY 07/26/16 [ History Confirmed 07/26/16] Warfarin TAB(*) [Coumadin TAB(*)] 5 mg PO DAILY 07/26/16 [History Confirmed 08/09] oxyCODONE TAB* [Roxycodone TAB 5 mg*] 15 mg PO Q4HR MDD 4 07/26/16 [History Confirmed 07/26/16] oxyCODONE/Acetamin 5/325 MG* [Percocet 5/325 TAB*] 1 tab PO Q6H PRN 07/26/16 [ History Confirmed 07/26/16] PMH/Surg Hx/FS Hx/Imm Hx Endocrine/Hematology History: Reports: Hx Anticoagulant Therapy, Hx Blood Transfusions, Hx Unexplained Bleeding Denies: Hx Blood Disorders, Hx Bone Marrow Disease, Hx Diabetes, Hx Systemic Lupus Erythematosus, Hx Sickle Cell Disease, Hx Thyroid Disease, Hx Anemia, Other Endocrine/Hematological Disorders Cardiovascular History: Reports: Hx Cardiomegaly, Hx Congestive Heart Failure, Hx Coronary Artery Disease, Hx Deep Vein Thrombosis, Hx Hypercholesterolemia, Hx Hypertension, Hx Valvular Heart Disease, Other Cardiovascular Problems/ Disorders - 2 artificial heart valves; Hx of endocarditis Denies: Hx Aneurysm, Hx Angina, Hx Angioplasty, Hx Auto Implanted Cardiovert Defib, Hx Cardiac Arrest, Hx Congenital Heart Disease, Hx Embolism, Hx Hypotension, Hx Pacemaker/ICD, Hx Peripheral Vascular Disease, Hx Rheumatic Fever, Hx Syncope Respiratory History: Reports: Hx Asthma, Hx Chronic Obstructive Pulmonary Disease (COPD), Hx Pneumonia, Hx Pulmonary Edema, Hx Pulmonary Embolism, Other Respiratory Problems/Disorders - PULMONARY EDEMA Denies: Hx Chronic Bronchitis, Hx Cystic Fibrosis, Hx Lung Cancer, Hx Pleural Effusion, Hx Seasonal Allergies, Hx Sleep Apnea History: Reports: Hx Chronic Renal Failure, Hx Dialysis - ESRD, [place] ON / FRI, Hx Renal Disease Denies: Hx Benign Prostatic Hyperplasia, Hx Kidney Infection, Hx Kidney Stones, Other Problems/Disorders Musculoskeletal History: Reports: Hx Arthritis Denies: Hx Back Problems, Hx Bursitis, Hx Congenital Bone Abnormalities, Hx Fibromyalgia, Hx Gout, Hx Orthopedic Injury, Hx Osteoporosis, Hx Scoliosis, Hx Tendonitis, Other Musculoskeletal History Sensory History: Reports: Hx Contacts or Glasses - glasses are at home Denies: Hx Hearing Aid Opthamlomology History: Reports: Hx Contacts or Glasses - glasses are at home Neurological History: Denies: Hx Seizures Psychiatric History: Reports: Hx Anxiety, Hx Depression Denies: Hx Attention Deficit Hyperactivity Disorder, Hx Eating Disorder, Hx Panic Disorder, Hx Post Traumatic Stress Disorder, Hx Inpatient Treatment, Hx Community Mental Health Tx, Hx Schizophrenia, Hx Bipolar Disorder, Hx Suicide Attempt, Hx of Violent Episodes Against Others, Hx Substance Abuse, Other Psychiatric Issues/Disorders - Surgical History Surgery Procedure, Year, and Place: bilateral knees, dialysis tube placed in abdomen( out), fistula tube placement in arm for dialysis Lt arm has been revised. waiting out ok to use [id number], open heart valve replacement, hysterectomy Hx Anesthesia Reactions: No - Immunization History Date of Tetanus Vaccine: Unk Date of Influenza Vaccine: Unk Infectious Disease History: Reports: Hx of Known/Suspected MRSA - Negative this visit Denies: Hx Clostridium Difficile, Hx Hepatitis, Hx Human Immunodeficiency Virus (HIV), Hx Shingles, Hx Tuberculosis, Hx Known/Suspected VRE - Family History Known Family History: Positive: None - no malignant hyperthermia. no anesthesia rxn. Family History: No FHx of malignant hyperthermia or anesthesia reaction. - Social History Alcohol Use: None Hx Substance Use: No Substance Use Type: Reports: Marijuana Hx Tobacco Use: Yes Smoking Status (MU): Former Smoker Type: Cigarettes Amount Used/How Often: 1/2 PPD Length of Time of Smoking/Using Tobacco: 15 Have You Smoked in the Last Year: Yes Review of Systems Constitutional: Negative Eyes: Negative ENT: Negative Positive: Chest Pain, Other - Bradycardia Positive: Shortness Of Breath Gastrointestinal: Negative Positive: incontinence - Urinary Skin: Negative Neurological: Other - Seizure; AMS Psychological: Other - AMS All Other Systems Reviewed And Are Negative: Yes Physical Exam - Summary Physical Exam Summary: Vital signs: reviewed General: Patient ill looking, somnolent female who is lying in the stretcher HEENT: within normal limits Lungs: coarse breath sounds b/l CVS: IRR, bradycardia, S1 & S2 present. No murmurs appreciated. ABDOMEN: Soft, non-tender. No signs of distention. No rebound no guarding, and no masses palpated. Bowel sounds are normal. EXTREMITIES: FROM in all major joints, no edema, no cyanosis or clubbing. NEURO: Alert and oriented x 3. However patient is very somnolent. SKIN: Dry and warm Triage Information Reviewed: Yes Vital Signs On Initial Exam: Initial Vitals Temp Pulse Resp BP Pulse Ox 97.2 F 35 16 68/45 100 07/26/16 11:50 07/26/16 11:50 07/26/16 11:50 07/26/16 11:50 07/26/16 11:50 Vital Signs Reviewed: Yes Diagnostics - Vital Signs Vital Signs Temp Pulse Resp BP Pulse Ox 07/26/16 12:01 97.3 F 44 19 66/32 99 07/26/16 12:00 34 17 100 07/26/16 11:58 36 18 100 07/26/16 11:57 71/44 07/26/16 11:50 97.2 F 35 16 68/45 100 - Laboratory Lab Results: Lab Results 07/26/16 07/26/16 07/26/16 Range/Units 11:48 11:48 11:48 WBC 5.3 (3.5-10.8) 10^3/ul RBC 2.00 L (4.0-5.4) 10^6/ul Hgb 6.6 L (12.0-16.0) g/dl Hct 20 L (35-47) % MCV 102 H (80-97) fL MCH 33 H (27-31) pg MCHC 32 (31-36) g/dl RDW 18 H (10.5-15) % Plt Count 146 L (150-450) 10^3/ul MPV 8 (7.4-10.4) um3 Neut % (Auto) 70.0 (38-83) % Lymph % (Auto) 15.9 L (25-47) % [place] % (Auto) 9.8 H (1-9) % Eos % (Auto) 3.1 (0-6) % Baso % (Auto) 1.2 (0-2) % Absolute Neuts (auto) 3.7 (1.5-7.7) 10^3/ul Absolute Lymphs (auto) 0.8 L (1.0-4.8) 10^3/ul Absolute Monos (auto) 0.5 (0-0.8) 10^3/ul Absolute Eos (auto) 0.2 (0-0.6) 10^3/ul Absolute Basos (auto) 0.1 (0-0.2) 10^3/ul Absolute Nucleated RBC 0.01 10^3/ul Nucleated RBC % 0.2 Normal RBC Morphology Not Reportable Hypochromasia 2+ Macrocytosis 1+ INR (Anticoag Therapy) 2.54 H (0.89-1.11) APTT 43.6 H (26.0-36.3) seconds Patient Temperature ABG pH (7.35-7.45) ABG pCO2 (35-45) mmHg ABG pO2 (80-100) mmHg ABG HCO3 (19-31) mmol/L ABG O2 Saturation (95-98) % ABG Base Excess (-2.0-2.0) Respiration Rate O2 Delivery Device Ventilator Type Vent Mode FiO2 Inspiratory Time PEEP Pressure Support Pressure Control EPAP IPAP BiPAP Sodium 133 (133-145) mmol/L Potassium 7.3 H* D (3.5-5.0) mmol/L Chloride 96 L (101-111) mmol/L Carbon Dioxide 26 (22-32) mmol/L Anion Gap 11 (2-11) mmol/L BUN 66 H (6-24) mg/dL Creatinine 9.12 H (0.51-0.95) mg/dL Est GFR ( Amer) 6.0 (>60) Est GFR (Non-Af Amer) 4.7 (>60) BUN/Creatinine Ratio 7.2 L (8-20) Glucose 115 H (70-100) mg/dL Lactic Acid (0.5-2.0) mmol/L Calcium 7.8 L (8.6-10.3) mg/dL Magnesium 2.7 (1.9-2.7) mg/dL Total Bilirubin 0.40 (0.2-1.0) mg/dL AST 42 H (13-39) U/L ALT 27 (7-52) U/L Alkaline Phosphatase 87 (34-104) U/L Total Creatine Kinase 51 (10-223) U/L CK-MB (CK-2) 1.4 (0.6-6.3) ng/mL Troponin I 0.04 H* (<0.04) ng/mL B-Natriuretic Peptide ( - 100) pg/mL Total Protein 6.0 L (6.4-8.9) g/dL Albumin 3.5 (3.2-5.2) g/dL Globulin 2.5 (2-4) g/dL Albumin/Globulin Ratio 1.4 (1-3) Blood Type Antibody Screen Crossmatch 07/26/16 07/26/16 07/26/16 Range/Units 11:48 11:48 12:10 WBC (3.5-10.8) 10^3/ul RBC (4.0-5.4) 10^6/ul Hgb (12.0-16.0) g/dl Hct (35-47) % MCV (80-97) fL MCH (27-31) pg MCHC (31-36) g/dl RDW (10.5-15) % Plt Count (150-450) 10^3/ul MPV (7.4-10.4) um3 Neut % (Auto) (38-83) % Lymph % (Auto) (25-47) % [place] % (Auto) (1-9) % Eos % (Auto) (0-6) % Baso % (Auto) (0-2) % Absolute Neuts (auto) (1.5-7.7) 10^3/ul Absolute Lymphs (auto) (1.0-4.8) 10^3/ul Absolute Monos (auto) (0-0.8) 10^3/ul Absolute Eos (auto) (0-0.6) 10^3/ul Absolute Basos (auto) (0-0.2) 10^3/ul Absolute Nucleated RBC 10^3/ul Nucleated RBC % Normal RBC Morphology Hypochromasia Macrocytosis INR (Anticoag Therapy) (0.89-1.11) APTT (26.0-36.3) seconds Patient Temperature ABG pH (7.35-7.45) ABG pCO2 (35-45) mmHg ABG pO2 (80-100) mmHg ABG HCO3 (19-31) mmol/L ABG O2 Saturation (95-98) % ABG Base Excess (-2.0-2.0) Respiration Rate O2 Delivery Device Ventilator Type Vent Mode FiO2 Inspiratory Time PEEP Pressure Support Pressure Control EPAP IPAP BiPAP Sodium (133-145) mmol/L Potassium (3.5-5.0) mmol/L Chloride (101-111) mmol/L Carbon Dioxide (22-32) mmol/L Anion Gap (2-11) mmol/L BUN (6-24) mg/dL Creatinine (0.51-0.95) mg/dL Est GFR ( Amer) (>60) Est GFR (Non-Af Amer) (>60) BUN/Creatinine Ratio (8-20) Glucose (70-100) mg/dL Lactic Acid 1.4 (0.5-2.0) mmol/L Calcium (8.6-10.3) mg/dL Magnesium (1.9-2.7) mg/dL Total Bilirubin (0.2-1.0) mg/dL AST (13-39) U/L ALT (7-52) U/L Alkaline Phosphatase (34-104) U/L Total Creatine Kinase (10-223) U/L CK-MB (CK-2) (0.6-6.3) ng/mL Troponin I (<0.04) ng/mL B-Natriuretic Peptide 857 H ( - 100) pg/mL Total Protein (6.4-8.9) g/dL Albumin (3.2-5.2) g/dL Globulin (2-4) g/dL Albumin/Globulin Ratio (1-3) Blood Type B Positive Antibody Screen Negative Crossmatch See Detail 07/26/16 Range/Units 12:25 WBC (3.5-10.8) 10^3/ul RBC (4.0-5.4) 10^6/ul Hgb (12.0-16.0) g/dl Hct (35-47) % MCV (80-97) fL MCH (27-31) pg MCHC (31-36) g/dl RDW (10.5-15) % Plt Count (150-450) 10^3/ul MPV (7.4-10.4) um3 Neut % (Auto) (38-83) % Lymph % (Auto) (25-47) % [place] % (Auto) (1-9) % Eos % (Auto) (0-6) % Baso % (Auto) (0-2) % Absolute Neuts (auto) (1.5-7.7) 10^3/ul Absolute Lymphs (auto) (1.0-4.8) 10^3/ul Absolute Monos (auto) (0-0.8) 10^3/ul Absolute Eos (auto) (0-0.6) 10^3/ul Absolute Basos (auto) (0-0.2) 10^3/ul Absolute Nucleated RBC 10^3/ul Nucleated RBC % Normal RBC Morphology Hypochromasia Macrocytosis INR (Anticoag Therapy) (0.89-1.11) APTT (26.0-36.3) seconds Patient Temperature Not Reportable ABG pH 7.54 H (7.35-7.45) ABG pCO2 30 L (35-45) mmHg ABG pO2 132 H (80-100) mmHg ABG HCO3 27.2 (19-31) mmol/L ABG O2 Saturation 99.9 H (95-98) % ABG Base Excess 2.9 H (-2.0-2.0) Respiration Rate Not Reportable O2 Delivery Device Nasal cannula Ventilator Type Not Reportable Vent Mode Not Reportable FiO2 6 Inspiratory Time Not Reportable PEEP Not Reportable Pressure Support Not Reportable Pressure Control Not Reportable EPAP Not Reportable IPAP Not Reportable BiPAP Not Reportable Sodium (133-145) mmol/L Potassium (3.5-5.0) mmol/L Chloride (101-111) mmol/L Carbon Dioxide (22-32) mmol/L Anion Gap (2-11) mmol/L BUN (6-24) mg/dL Creatinine (0.51-0.95) mg/dL Est GFR ( Amer) (>60) Est GFR (Non-Af Amer) (>60) BUN/Creatinine Ratio (8-20) Glucose (70-100) mg/dL Lactic Acid (0.5-2.0) mmol/L Calcium (8.6-10.3) mg/dL Magnesium (1.9-2.7) mg/dL Total Bilirubin (0.2-1.0) mg/dL AST (13-39) U/L ALT (7-52) U/L Alkaline Phosphatase (34-104) U/L Total Creatine Kinase (10-223) U/L CK-MB (CK-2) (0.6-6.3) ng/mL Troponin I (<0.04) ng/mL B-Natriuretic Peptide ( - 100) pg/mL Total Protein (6.4-8.9) g/dL Albumin (3.2-5.2) g/dL Globulin (2-4) g/dL Albumin/Globulin Ratio (1-3) Blood Type Antibody Screen Crossmatch Result Diagrams: 07/26/16 11:48 07/26/16 11:48 Lab Statement: Any lab studies that have been ordered have been reviewed, and results considered in the medical decision making process. - Radiology CXR Xray Interpretation: Positive (See Comments) - IMPRESSION: ENLARGED CORRECT SILHOUETTE WITH INTERSTITIAL CONGESTION AND SMALL LEFT-SIDED EFFUSION. NO APPRECIABLE CHANGE Radiology Interpretation Completed By: Radiologist - EKG 11:38 Cardiac Rate: Bradycardia - 35 bpm EKG Rhythm: Atrial Fibrillation EKG Interpretation: No ST elevation; No STEMI Chest Pain Course/Dx - Course Assessment/Plan: A 45 y/o female presents to the ED with chest pain since yesterday. The patient had a seizure [employer], which prompted her family to call EMS. Associated symptoms include bradycardia, SOB - since yesterday, AMS, and urinary incontinence. The patient is on dialysis and missed her dialysis appointment yesterday, because she was feeling ill. She has a Hx of seizures and her last seizure was a year ago. Blood work shows Hgb of 6.6, Hct of 20, and MCV 102. This is consistent with macrocytic normochromic anemia. Plt Count of 146. Potassium of 7.3. BUN of 66. creatinine of 9.1. Glucose of 115. Troponin of 0.04. BNP 857. CXR shows cardiomegaly and small left sided effusion. The ED course, the patient was given a bolus of IV fluids since the patient was hypotensive. We obtained two peripheral IV lines, the patient was placed on cardiac/vascular sonographer and showed bradycardia. I believe that the symptoms are secondary to the hyperkalemia and the missed dialysis which is worsening the renal failure. She was given calcium gluconate, insulin, dextrose, kayexalate, and albuterol to decrease the hyperkalemia. The patient will be given RBC for her symptomatic anemia. At this point I discussed my findings with Dr. Humphrey (clinic assistant) who came down and saw and examined the patient. He agrees with management up to this point and he will admit the patient to ICU services. Since the patient continues to be hypotensive and bradycardic, I order dopamine 0.5 micrograms/per KG/per min to be titrated up and down as needed. The patient continues to be critical and will be transferred to the ICU. Dr. Gamble does not recommend endotracheal intubation or central line at this time. - Chest Pain Differential Diagnosis/HQI/PQRI: Acute FL, ACS, Angina, CHF, GI Disease, Lower Respiratory Infection, Pulmonary Edema, Other: - Hyperkalemia, Worsening of ESRD - Diagnoses Provider Diagnoses: Acute hyperkalemia, increase troponin r/o NSTEMI, Symptomatic bradycardia, Worsening ESRD, Symptomatic anemia, Hypotension, CHF exacerbation - Provider Notifications Discussed Care Of Patient With: Dr. Zepeda ([employer] Machine Operator) at 11:58 -- Notified of patient's history. Dr. Humphrey (ICU) at 12:10 -- Notified of patient's history and will evaluate the patient. Dr. Humphrey (ICU) at 12:20 -- Accpets admission of the patient. - Critical Care Time Critical Care Time: 75-104 min Discharge - Discharge Plan Condition: Critical Disposition: ADMITTED TO [facility] documentation as recorded by the Itzel sosa Matthew accurately reflects the service I personally performed and the decisions made by Rio sharif Walter, MD.
[2016-07-26] MEDS ORDERED: DOPAMINE IV ONE (17:55)
[2016-07-26] MEDS ORDERED: IVPREM IV ONE (17:55)
[2016-07-26] MEDS: oxyCODONE TAB* 5 MG TAB PO PRN (19:55)
[2016-07-26] MEDS: Sevelamer TAB* 800 MG PO SCH (22:51)
[2016-07-27] MEDS: oxyCODONE TAB* 5 MG TAB PO PRN ×4 (03:41→21:36)
[2016-07-27 06:12] LABS: BUN/Creatinine Ratio 6.1 (8-20); EGFR African American 13.2 (>60); EGFR Non-African American 10.3 (>60); Phosphorus 5.3 mg/dL (2.5-5.0); Potassium 3.5 mmol/L (3.5-5.0)
[2016-07-27 07:26] LABS: Hematocrit 22 % (35-47); Hemoglobin 7.5 g/dl (12.0-16.0); Mean Corpuscular HGB Conc 34 g/dl (31-36); Mean Corpuscular Hemoglobin 32 pg (27-31); Mean Corpuscular Volume 96 fL (80-97); Mean Platelet Volume 9 um3 (7.4-10.4); Red Blood Count 2.35 10^6/ul (4.0-5.4); Red Cell Distribution Width 19 % (10.5-15); White Blood Count 5.9 10^3/ul (3.5-10.8)
[2016-07-27] MEDS: Sevelamer TAB* 800 MG PO SCH ×3 (09:44→17:08)
--- NOTE | 2016-07-27 11:05 | PN ---
Progress Note - Progress Note Note: CRITICAL CARE MEDICINE DATE: 07/27/16 TIME: 930 SUBJECTIVE: Patient seen and examined. Thankful. pleasant. PHYSICAL EXAM: Vital Signs: Reviewed and as above. off dopamine. Neurologic: awake, communicating well. HEENT: anicteric, mm dry. Cardiovascular: Heart tones distant, 3/6 courtney Respiratory: better phases, no wheeze Abdomen: soft nt Extremities: warm, chronic changes, fistula left fem Access: per LABS: Reviewed. IMAGING: Reviewed. MEDICATIONS: Reviewed. ASSESSMENT: 45 F with Cardiogenic shock sec to Symptomatic slow bradycardic afib sec to Symptomatic Hyperkalemia sec to Non-adherence with HD needs/ESRD Symptomatic anemia of chronic disease/ESRD Hypoxic encephalopathy due to cardiogenic shock. Chronic anticoagulation Vascuolopathy PLAN: much better. Neurologic: hypoxic encephalopathy cleared. outpt narc regimen. Cardiovascular: perfused. volume status well. off dopamine. tele for another day. Respiratory: can wean on O2. IS. oob. Gastrointestinal: po. sup Renal/Metabolic: f/u regular HD needs. responded well. Infectious Disease: no new infective burden. Hematology: Hb stabilized. f/u clinically. Endocrine: glucose stabilization Musculoskeletal: oob, progressive mobility Psych/Social: pt expresses understanding and appreciation. Supportive and preventative care as ordered. SUP: ppi VTE prophylaxis: coumadin resumed. Disposition: to floor with tele Code Status: Full Critical Care Time: 30min Jennifer Humphrey DO
[2016-07-27] MEDS ORDERED: Albuterol 2.5 MG/3 ML NEB.SOL* (0.083%) INH PRN (13:51)
[2016-07-27] MEDS ORDERED: Spiriva Inhaler DEVICE* 1 EACH DEVICE INH ONE (14:00)
[2016-07-27] MEDS ORDERED: Sevelamer TAB* 800 MG PO SCH (14:00)
[2016-07-27] MEDS: Warfarin TAB(*) 2 MG PO SCH (17:08)
[2016-07-28 06:35] LABS: Hematocrit 22 % (35-47); Hemoglobin 7.5 g/dl (12.0-16.0); Mean Corpuscular HGB Conc 34 g/dl (31-36); Mean Corpuscular Hemoglobin 32 pg (27-31); Mean Corpuscular Volume 96 fL (80-97); Mean Platelet Volume 8 um3 (7.4-10.4); Red Cell Distribution Width 18 % (10.5-15); White Blood Count 5.8 10^3/ul (3.5-10.8)
[2016-07-28 06:44] LABS: Calcium 7.8 mg/dL (8.6-10.3); EGFR Non-African American 6.2 (>60); Magnesium 2.3 mg/dL (1.9-2.7); Phosphorus 8.1 mg/dL (2.5-5.0); Potassium 4.8 mmol/L (3.5-5.0)
[2016-07-28 07:15] LABS: Troponin I 0.05 ng/mL (<0.04)
[2016-07-28] MEDS: Sevelamer TAB* 800 MG PO SCH ×3 (08:29→17:04)
[2016-07-28] MEDS: Tiotropium CAP.INH* CAP.INH/18 MCG INH SCH (08:30)
[2016-07-28] MEDS: oxyCODONE TAB* 5 MG TAB PO PRN ×3 (08:37→20:19)
[2016-07-28] MEDS: Ondansetron INJ* 2 MG/ML VIAL IV PRN ×2 (14:47→19:04)
--- NOTE | 2016-07-28 15:27 | PN ---
Subjective Date of Service: 07/28/16 Interval History: Seen and examined with son and daughter at bedside Has small amount of epistaxis today. O2 was not previously humidified. Has been blowing her nose vigorously. Denies SOB or chest pain. Nausea later in the day after our discussion Objective Active Medications: Albuterol (Ventolin 2.5 Mg/3 Ml Neb.Tonya*) 2.5 mg INH Q6H PRN PRN Reason: SOB/WHEEZING Dextrose (D50w Syringe 50 Ml*) 50 gm IV PUSH ONCE PRN PRN Reason: SEIZURES Diltiazem HCl (Cardizem Tab*) 60 mg PO Q6HR [facility] Ondansetron HCl (Zofran Inj*) 4 mg IV Q4H PRN PRN Reason: NAUSEA Last Admin: 07/28/16 14:47 Dose: 4 mg Oxycodone HCl (Roxycodone Tab*) 5 mg PO Q4H PRN PRN Reason: PAIN Last Admin: 07/28/16 14:46 Dose: 5 mg Pharmacy Profile Note (Coumadin Daily Reminder*) 1 note FOLLOW UP 1700 [facility] Last Admin: 07/27/16 17:09 Dose: 1 note Sevelamer Carbonate (Renvela Tab*) 4,800 mg PO AC [facility] Last Admin: 07/28/16 12:18 Dose: 4,800 mg Tiotropium [place] (Spiriva Cap.Inh*) 1 cap INH DAILY [facility] Last Admin: 07/28/16 08:30 Dose: 1 cap Warfarin Sodium (Coumadin Tab(*)) 2 mg PO DAILY@1700 [facility] PRN Reason: Protocol Last Admin: 07/27/16 17:08 Dose: 2 mg Vital Signs 07/27/16 07/27/16 07/27/16 16:22 17:32 19:32 Temperature 98.2 F Pulse Rate 75 Respiratory 18 18 18 Rate Blood Pressure 135/89 (mmHg) O2 Sat by Pulse 100 Oximetry 07/27/16 07/27/16 07/27/16 19:58 20:00 21:36 Temperature 97.9 F Pulse Rate 80 Respiratory 16 18 18 Rate Blood Pressure 146/98 (mmHg) O2 Sat by Pulse 100 Oximetry 07/27/16 07/28/16 07/28/16 23:36 00:22 01:46 Temperature 98.0 F Pulse Rate 121 80 Respiratory 18 16 Rate Blood Pressure 142/95 (mmHg) O2 Sat by Pulse 100 Oximetry 07/28/16 07/28/16 07/28/16 04:17 07:44 08:00 Temperature 98.0 F 97.8 F Pulse Rate 99 88 Respiratory 16 18 22 Rate Blood Pressure 141/83 148/83 (mmHg) O2 Sat by Pulse 100 100 Oximetry 07/28/16 07/28/16 07/28/16 08:37 10:37 11:43 Temperature 98.1 F Pulse Rate 89 Respiratory 18 22 20 Rate Blood Pressure 169/122 (mmHg) O2 Sat by Pulse 100 Oximetry 07/28/16 14:46 Temperature Pulse Rate Respiratory 18 Rate Blood Pressure (mmHg) O2 Sat by Pulse Oximetry Oxygen Devices in Use Now: Nasal Cannula Appearance: interactive, NAD Eyes: No Scleral Icterus, PERRLA Ears/Nose/Mouth/Throat: Mucous Membranes Moist Neck: NL Appearance and Movements; NL JVP, Trachea Midline Respiratory: Symmetrical Chest Expansion and Respiratory Effort, Clear to Auscultation Cardiovascular: - - IRIR Abdominal: NL Sounds; No Tenderness; No Distention, No Hepatosplenomegaly Lymphatic: No Cervical Adenopathy Extremities: - - trace LE edema Skin: No Rash or Ulcers Neurological: Alert and Oriented x 3 Result Diagrams: 07/28/16 06:17 07/28/16 06:18 Additional Lab and Data: Lab Results 07/26/16 07/26/16 07/26/16 Range/Units 11:48 11:48 11:48 WBC 5.3 (3.5-10.8) 10^3/ul RBC 2.00 L (4.0-5.4) 10^6/ul Hgb 6.6 L (12.0-16.0) g/dl Hct 20 L (35-47) % MCV 102 H (80-97) fL MCH 33 H (27-31) pg MCHC 32 (31-36) g/dl RDW 18 H (10.5-15) % Plt Count 146 L (150-450) 10^3/ul MPV 8 (7.4-10.4) um3 Neut % (Auto) 70.0 (38-83) % Lymph % (Auto) 15.9 L (25-47) % [place] % (Auto) 9.8 H (1-9) % Eos % (Auto) 3.1 (0-6) % Baso % (Auto) 1.2 (0-2) % Absolute Neuts (auto) 3.7 (1.5-7.7) 10^3/ul Absolute Lymphs (auto) 0.8 L (1.0-4.8) 10^3/ul Absolute Monos (auto) 0.5 (0-0.8) 10^3/ul Absolute Eos (auto) 0.2 (0-0.6) 10^3/ul Absolute Basos (auto) 0.1 (0-0.2) 10^3/ul Absolute Nucleated RBC 0.01 10^3/ul Nucleated RBC % 0.2 Normal RBC Morphology Not Reportable Hypochromasia 2+ Macrocytosis 1+ INR (Anticoag Therapy) 2.54 H (0.89-1.11) APTT 43.6 H (26.0-36.3) seconds Patient Temperature ABG pH (7.35-7.45) ABG pCO2 (35-45) mmHg ABG pO2 (80-100) mmHg ABG HCO3 (19-31) mmol/L ABG O2 Saturation (95-98) % ABG Base Excess (-2.0-2.0) Respiration Rate O2 Delivery Device Ventilator Type Vent Mode FiO2 Inspiratory Time PEEP Pressure Support Pressure Control EPAP IPAP BiPAP Sodium 133 (133-145) mmol/L Potassium 7.3 H* D (3.5-5.0) mmol/L Chloride 96 L (101-111) mmol/L Carbon Dioxide 26 (22-32) mmol/L Anion Gap 11 (2-11) mmol/L BUN 66 H (6-24) mg/dL Creatinine 9.12 H (0.51-0.95) mg/dL Est GFR ( Amer) 6.0 (>60) Est GFR (Non-Af Amer) 4.7 (>60) BUN/Creatinine Ratio 7.2 L (8-20) Glucose 115 H (70-100) mg/dL Lactic Acid (0.5-2.0) mmol/L Calcium 7.8 L (8.6-10.3) mg/dL Magnesium 2.7 (1.9-2.7) mg/dL Total Bilirubin 0.40 (0.2-1.0) mg/dL AST 42 H (13-39) U/L ALT 27 (7-52) U/L Alkaline Phosphatase 87 (34-104) U/L Total Creatine Kinase 51 (10-223) U/L CK-MB (CK-2) 1.4 (0.6-6.3) ng/mL Troponin I 0.04 H* (<0.04) ng/mL B-Natriuretic Peptide ( - 100) pg/mL Total Protein 6.0 L (6.4-8.9) g/dL Albumin 3.5 (3.2-5.2) g/dL Globulin 2.5 (2-4) g/dL Albumin/Globulin Ratio 1.4 (1-3) Blood Type Antibody Screen Crossmatch 07/26/16 07/26/16 07/26/16 Range/Units 11:48 11:48 12:10 WBC (3.5-10.8) 10^3/ul RBC (4.0-5.4) 10^6/ul Hgb (12.0-16.0) g/dl Hct (35-47) % MCV (80-97) fL MCH (27-31) pg MCHC (31-36) g/dl RDW (10.5-15) % Plt Count (150-450) 10^3/ul MPV (7.4-10.4) um3 Neut % (Auto) (38-83) % Lymph % (Auto) (25-47) % [place] % (Auto) (1-9) % Eos % (Auto) (0-6) % Baso % (Auto) (0-2) % Absolute Neuts (auto) (1.5-7.7) 10^3/ul Absolute Lymphs (auto) (1.0-4.8) 10^3/ul Absolute Monos (auto) (0-0.8) 10^3/ul Absolute Eos (auto) (0-0.6) 10^3/ul Absolute Basos (auto) (0-0.2) 10^3/ul Absolute Nucleated RBC 10^3/ul Nucleated RBC % Normal RBC Morphology Hypochromasia Macrocytosis INR (Anticoag Therapy) (0.89-1.11) APTT (26.0-36.3) seconds Patient Temperature ABG pH (7.35-7.45) ABG pCO2 (35-45) mmHg ABG pO2 (80-100) mmHg ABG HCO3 (19-31) mmol/L ABG O2 Saturation (95-98) % ABG Base Excess (-2.0-2.0) Respiration Rate O2 Delivery Device Ventilator Type Vent Mode FiO2 Inspiratory Time PEEP Pressure Support Pressure Control EPAP IPAP BiPAP Sodium (133-145) mmol/L Potassium (3.5-5.0) mmol/L Chloride (101-111) mmol/L Carbon Dioxide (22-32) mmol/L Anion Gap (2-11) mmol/L BUN (6-24) mg/dL Creatinine (0.51-0.95) mg/dL Est GFR ( Amer) (>60) Est GFR (Non-Af Amer) (>60) BUN/Creatinine Ratio (8-20) Glucose (70-100) mg/dL Lactic Acid 1.4 (0.5-2.0) mmol/L Calcium (8.6-10.3) mg/dL Magnesium (1.9-2.7) mg/dL Total Bilirubin (0.2-1.0) mg/dL AST (13-39) U/L ALT (7-52) U/L Alkaline Phosphatase (34-104) U/L Total Creatine Kinase (10-223) U/L CK-MB (CK-2) (0.6-6.3) ng/mL Troponin I (<0.04) ng/mL B-Natriuretic Peptide 857 H ( - 100) pg/mL Total Protein (6.4-8.9) g/dL Albumin (3.2-5.2) g/dL Globulin (2-4) g/dL Albumin/Globulin Ratio (1-3) Blood Type B Positive Antibody Screen Negative Crossmatch See Detail 07/26/16 Range/Units 12:25 WBC (3.5-10.8) 10^3/ul RBC (4.0-5.4) 10^6/ul Hgb (12.0-16.0) g/dl Hct (35-47) % MCV (80-97) fL MCH (27-31) pg MCHC (31-36) g/dl RDW (10.5-15) % Plt Count (150-450) 10^3/ul MPV (7.4-10.4) um3 Neut % (Auto) (38-83) % Lymph % (Auto) (25-47) % [place] % (Auto) (1-9) % Eos % (Auto) (0-6) % Baso % (Auto) (0-2) % Absolute Neuts (auto) (1.5-7.7) 10^3/ul Absolute Lymphs (auto) (1.0-4.8) 10^3/ul Absolute Monos (auto) (0-0.8) 10^3/ul Absolute Eos (auto) (0-0.6) 10^3/ul Absolute Basos (auto) (0-0.2) 10^3/ul Absolute Nucleated RBC 10^3/ul Nucleated RBC % Normal RBC Morphology Hypochromasia Macrocytosis INR (Anticoag Therapy) (0.89-1.11) APTT (26.0-36.3) seconds Patient Temperature Not Reportable ABG pH 7.54 H (7.35-7.45) ABG pCO2 30 L (35-45) mmHg ABG pO2 132 H (80-100) mmHg ABG HCO3 27.2 (19-31) mmol/L ABG O2 Saturation 99.9 H (95-98) % ABG Base Excess 2.9 H (-2.0-2.0) Respiration Rate Not Reportable O2 Delivery Device Nasal cannula Ventilator Type Not Reportable Vent Mode Not Reportable FiO2 6 Inspiratory Time Not Reportable PEEP Not Reportable Pressure Support Not Reportable Pressure Control Not Reportable EPAP Not Reportable IPAP Not Reportable BiPAP Not Reportable Sodium (133-145) mmol/L Potassium (3.5-5.0) mmol/L Chloride (101-111) mmol/L Carbon Dioxide (22-32) mmol/L Anion Gap (2-11) mmol/L BUN (6-24) mg/dL Creatinine (0.51-0.95) mg/dL Est GFR ( Amer) (>60) Est GFR (Non-Af Amer) (>60) BUN/Creatinine Ratio (8-20) Glucose (70-100) mg/dL Lactic Acid (0.5-2.0) mmol/L Calcium (8.6-10.3) mg/dL Magnesium (1.9-2.7) mg/dL Total Bilirubin (0.2-1.0) mg/dL AST (13-39) U/L ALT (7-52) U/L Alkaline Phosphatase (34-104) U/L Total Creatine Kinase (10-223) U/L CK-MB (CK-2) (0.6-6.3) ng/mL Troponin I (<0.04) ng/mL B-Natriuretic Peptide ( - 100) pg/mL Total Protein (6.4-8.9) g/dL Albumin (3.2-5.2) g/dL Globulin (2-4) g/dL Albumin/Globulin Ratio (1-3) Blood Type Antibody Screen Crossmatch Assess/Plan/Problems-Billing Assessment: 45 yo F h/o ESRD on HD, afib, HTN, HLD, h/o SVC syndrome, h/o DVT/PE, h/o AVR recent stay at [facility] [place] then returned with DA, then returned again with afib RVR and associated NSTEMI, transferred to [facility] where pt describes LHC "with stents" and "fixing my valve" which sounds like a balloon angioplasty now returning with cardiogenic shock in setting of bradycardia in setting of hyperkalemia s/p GI illness and missed dialysis session - Patient Problems (1) Cardiogenic shock Comment: On presentation Bradycardia in setting of K >7 responded to atropine, dopamine, and HD (2) Hyperkalemia Comment: Had GI illness then missed dialysis session both likely contributing to hyperkalemia c/w HD (3) Seizures Comment: In setting of hypoxia and cardiogenic shock Has history of seizures on no AEDs (4) Anemia Comment: In setting of chronic illness and chronic kidney disease Received 2 U PRBC this stay trend. Potentially additional blood on day of HD given CAD (5) Atrial fibrillation Comment: Restart cardizem at lower dose Increase as able c/w coumadin will not bridge with heparin given recent pulmonary hemorrhage (6) Hypertension Comment: restarting cardizem clonidine, norvasc, labetalol on hold (7) Pulmonary embolism Current Visit: No Status: Chronic Priority: High Onset Date: 05/31/14 Code(s): I26.99 - OTHER PULMONARY EMBOLISM WITHOUT ACUTE COR PULMONALE SNOMED Code(s): 48432388 Comment: Off coumadin. Will be at increased risk for the near future. This cant be avoided. I discussed this with patient. (8) Pulmonary hemorrhage Comment: Start coumadin for PE and afib but slowly given recent h/o pulm hemorrhage (9) Congestive heart failure Comment: EF 55-60%, severe LVH chronic compensated diastolic lasix on hold c/w HD (10) Aortic valve replaced Comment: s/p suspected recent balloon angio obtain records (11) CAD (coronary artery disease) Comment: s/p recent suspect PCI on no anti platelets start ASA obtain records ask family for medications (12) DVT prophylaxis Comment: SQ heparin SCDs coumadin
[2016-07-28 16:54] LABS: Hematocrit 23 % (35-47); Hemoglobin 7.9 g/dl (12.0-16.0); Mean Corpuscular HGB Conc 34 g/dl (31-36); Mean Corpuscular Hemoglobin 32 pg (27-31); Mean Corpuscular Volume 95 fL (80-97); Mean Platelet Volume 9 um3 (7.4-10.4); Red Blood Count 2.44 10^6/ul (4.0-5.4); Red Cell Distribution Width 18 % (10.5-15); White Blood Count 6.3 10^3/ul (3.5-10.8)
[2016-07-28] MEDS: Warfarin TAB(*) 2 MG PO SCH (17:03)
[2016-07-28] MEDS: Diltiazem TAB* 60 MG PO SCH (17:03)
[2016-07-28 17:08] LABS: EGFR African American 7.3 (>60); EGFR Non-African American 5.7 (>60)
[2016-07-28] MEDS ORDERED: amLODIPine TAB* 5 MG PO ONE (19:29)
[2016-07-28] MEDS: Al Hydrox/Mg Hydrox/Simet LIQ* 30 ML UDC PO PRN ×2 (20:28→22:42)
--- NOTE | 2016-07-28 20:57 | PN ---
Progress Note - Progress Note Note: Paged by RN for patient with CP. Patient had an episode of N/V and then developed left sided chest pain. EKG unchanged and maalox was given. Pain resolved.
[2016-07-28] MEDS: Heparin VIAL(*) 5000 UNITS/ML VIAL (FIVE THOUSAND) SUBCUT SCH (22:38)
[2016-07-29] MEDS: Diltiazem TAB* 60 MG PO SCH ×3 (00:03→13:39)
[2016-07-29] MEDS: Ondansetron INJ* 2 MG/ML VIAL IV PRN ×3 (01:32→21:19)
[2016-07-29] MEDS: Oxymetazoline 0.05% NASAL SPR* 15 ML BTL BOTH NARES SCH ×3 (02:05→21:21)
[2016-07-29] MEDS: Heparin VIAL(*) 5000 UNITS/ML VIAL (FIVE THOUSAND) SUBCUT SCH ×3 (05:44→21:22)
[2016-07-29 06:31] LABS: BUN/Creatinine Ratio 7.8 (8-20); Calcium 8.1 mg/dL (8.6-10.3); EGFR African American 6.2 (>60); EGFR Non-African American 4.8 (>60); Potassium 5.6 mmol/L (3.5-5.0)
[2016-07-29] MEDS: Aspirin EC Low Dose* 81 MG TAB.EC PO SCH (08:32)
[2016-07-29] MEDS: Sevelamer TAB* 800 MG PO SCH ×3 (08:32→17:44)
[2016-07-29] MEDS: oxyCODONE TAB* 5 MG TAB PO PRN ×3 (08:57→21:23)
[2016-07-29] MEDS ORDERED: Oxymetazoline 0.05% NASAL SPR* 15 ML BTL BOTH NARES SCH (09:00)
[2016-07-29] MEDS: Tiotropium CAP.INH* CAP.INH/18 MCG INH SCH (09:35)
[2016-07-29] MEDS ORDERED: Epoetin Alfa* 10,000 UNITS/ML VIAL IV ONE (10:00)
[2016-07-29] MEDS ORDERED: Heparin DIALYSIS ONLY(*) 1,000 UNITS/ML VIAL DIALYSIS ONE (10:00)
[2016-07-29] MEDS ORDERED: Acetaminophen TAB* 325 MG PO PRN (12:00)
--- NOTE | 2016-07-29 15:45 | PN ---
Subjective Date of Service: 07/29/16 Interval History: Seen and examined after HD and 1u PRBC Feels well today, feels stronger, no CP, SOB, N/V, LH chest pain overnight that resolved with maalox. Objective Active Medications: Acetaminophen (Tylenol Tab*) 650 mg PO Q6H PRN PRN Reason: PAIN Al Hydrox/Mg Hydrox/Simethicone (Maalox Plus*) 30 ml PO Q2H PRN PRN Reason: INDIGESTION Last Admin: 07/28/16 22:42 Dose: 30 ml Albuterol (Ventolin 2.5 Mg/3 Ml Neb.Tonya*) 2.5 mg INH Q6H PRN PRN Reason: SOB/WHEEZING Aspirin (Aspirin Ec Low Dose*) 81 mg PO DAILY [facility] Last Admin: 07/29/16 08:32 Dose: 81 mg Dextrose (D50w Syringe 50 Ml*) 50 gm IV PUSH ONCE PRN PRN Reason: SEIZURES Diltiazem HCl (Cardizem Tab*) 90 mg PO Q6H [facility] Heparin Sodium (Porcine) (Heparin Vial(*)) 5,000 units SUBCUT Q8HR [facility] Last Admin: 07/29/16 13:36 Dose: 5,000 units Ondansetron HCl (Zofran Inj*) 4 mg IV Q4H PRN PRN Reason: NAUSEA Last Admin: 07/29/16 10:38 Dose: 4 mg Oxycodone HCl (Roxycodone Tab*) 5 mg PO Q4H PRN PRN Reason: PAIN Last Admin: 07/29/16 13:56 Dose: 5 mg Oxymetazoline HCl (Afrin 0.05% Nasal [place]*) 2 spray BOTH NARES BID [facility] Stop: 07/31/16 01:51 Last Admin: 07/29/16 08:31 Dose: 2 spray Sevelamer Carbonate (Renvela Tab*) 4,800 mg PO AC [facility] Last Admin: 07/29/16 13:37 Dose: 4,800 mg Tiotropium [place] (Spiriva Cap.Inh*) 1 cap INH DAILY [facility] Last Admin: 07/29/16 09:35 Dose: Not Given Warfarin Sodium (Coumadin Tab(*)) 5 mg PO DAILY@1700 [facility] PRN Reason: Protocol Vital Signs 07/28/16 07/28/16 07/28/16 16:15 16:46 19:23 Temperature 97.8 F 98.1 F Pulse Rate 100 122 Respiratory 22 20 16 Rate Blood Pressure 154/101 172/108 (mmHg) O2 Sat by Pulse 100 96 Oximetry 07/28/16 07/28/16 07/28/16 19:26 20:00 20:19 Temperature Pulse Rate 102 Respiratory 18 16 Rate Blood Pressure (mmHg) O2 Sat by Pulse Oximetry 07/28/16 07/29/16 07/29/16 22:19 00:08 00:12 Temperature 97.9 F Pulse Rate 126 Respiratory 18 18 Rate Blood Pressure 157/112 148/89 (mmHg) O2 Sat by Pulse 100 Oximetry 07/29/16 07/29/16 07/29/16 04:30 05:01 07:45 Temperature 98.1 F Pulse Rate 82 78 Respiratory 16 16 Rate Blood Pressure 150/109 150/84 161/81 (mmHg) O2 Sat by Pulse 99 100 Oximetry 07/29/16 07/29/16 07/29/16 07:49 08:57 13:56 Temperature Pulse Rate Respiratory 16 20 18 Rate Blood Pressure (mmHg) O2 Sat by Pulse Oximetry Oxygen Devices in Use Now: Nasal Cannula Appearance: well appearing, NAD Eyes: No Scleral Icterus, PERRLA Ears/Nose/Mouth/Throat: Mucous Membranes Moist Neck: NL Appearance and Movements; NL JVP, Trachea Midline Respiratory: Symmetrical Chest Expansion and Respiratory Effort, - - rales b/l bases Cardiovascular: - - IRIR, 2/6 MYRNA Abdominal: NL Sounds; No Tenderness; No Distention, No Hepatosplenomegaly Lymphatic: No Cervical Adenopathy Extremities: No Edema Skin: No Rash or Ulcers Neurological: Alert and Oriented x 3 Result Diagrams: 07/28/16 16:31 07/29/16 05:32 Additional Lab and Data: Lab Results 07/26/16 07/26/16 07/26/16 Range/Units 11:48 11:48 11:48 WBC 5.3 (3.5-10.8) 10^3/ul RBC 2.00 L (4.0-5.4) 10^6/ul Hgb 6.6 L (12.0-16.0) g/dl Hct 20 L (35-47) % MCV 102 H (80-97) fL MCH 33 H (27-31) pg MCHC 32 (31-36) g/dl RDW 18 H (10.5-15) % Plt Count 146 L (150-450) 10^3/ul MPV 8 (7.4-10.4) um3 Neut % (Auto) 70.0 (38-83) % Lymph % (Auto) 15.9 L (25-47) % [place] % (Auto) 9.8 H (1-9) % Eos % (Auto) 3.1 (0-6) % Baso % (Auto) 1.2 (0-2) % Absolute Neuts (auto) 3.7 (1.5-7.7) 10^3/ul Absolute Lymphs (auto) 0.8 L (1.0-4.8) 10^3/ul Absolute Monos (auto) 0.5 (0-0.8) 10^3/ul Absolute Eos (auto) 0.2 (0-0.6) 10^3/ul Absolute Basos (auto) 0.1 (0-0.2) 10^3/ul Absolute Nucleated RBC 0.01 10^3/ul Nucleated RBC % 0.2 Normal RBC Morphology Not Reportable Hypochromasia 2+ Macrocytosis 1+ INR (Anticoag Therapy) 2.54 H (0.89-1.11) APTT 43.6 H (26.0-36.3) seconds Patient Temperature ABG pH (7.35-7.45) ABG pCO2 (35-45) mmHg ABG pO2 (80-100) mmHg ABG HCO3 (19-31) mmol/L ABG O2 Saturation (95-98) % ABG Base Excess (-2.0-2.0) Respiration Rate O2 Delivery Device Ventilator Type Vent Mode FiO2 Inspiratory Time PEEP Pressure Support Pressure Control EPAP IPAP BiPAP Sodium 133 (133-145) mmol/L Potassium 7.3 H* D (3.5-5.0) mmol/L Chloride 96 L (101-111) mmol/L Carbon Dioxide 26 (22-32) mmol/L Anion Gap 11 (2-11) mmol/L BUN 66 H (6-24) mg/dL Creatinine 9.12 H (0.51-0.95) mg/dL Est GFR ( Amer) 6.0 (>60) Est GFR (Non-Af Amer) 4.7 (>60) BUN/Creatinine Ratio 7.2 L (8-20) Glucose 115 H (70-100) mg/dL Lactic Acid (0.5-2.0) mmol/L Calcium 7.8 L (8.6-10.3) mg/dL Magnesium 2.7 (1.9-2.7) mg/dL Total Bilirubin 0.40 (0.2-1.0) mg/dL AST 42 H (13-39) U/L ALT 27 (7-52) U/L Alkaline Phosphatase 87 (34-104) U/L Total Creatine Kinase 51 (10-223) U/L CK-MB (CK-2) 1.4 (0.6-6.3) ng/mL Troponin I 0.04 H* (<0.04) ng/mL B-Natriuretic Peptide ( - 100) pg/mL Total Protein 6.0 L (6.4-8.9) g/dL Albumin 3.5 (3.2-5.2) g/dL Globulin 2.5 (2-4) g/dL Albumin/Globulin Ratio 1.4 (1-3) Blood Type Antibody Screen Crossmatch 07/26/16 07/26/16 07/26/16 Range/Units 11:48 11:48 12:10 WBC (3.5-10.8) 10^3/ul RBC (4.0-5.4) 10^6/ul Hgb (12.0-16.0) g/dl Hct (35-47) % MCV (80-97) fL MCH (27-31) pg MCHC (31-36) g/dl RDW (10.5-15) % Plt Count (150-450) 10^3/ul MPV (7.4-10.4) um3 Neut % (Auto) (38-83) % Lymph % (Auto) (25-47) % [place] % (Auto) (1-9) % Eos % (Auto) (0-6) % Baso % (Auto) (0-2) % Absolute Neuts (auto) (1.5-7.7) 10^3/ul Absolute Lymphs (auto) (1.0-4.8) 10^3/ul Absolute Monos (auto) (0-0.8) 10^3/ul Absolute Eos (auto) (0-0.6) 10^3/ul Absolute Basos (auto) (0-0.2) 10^3/ul Absolute Nucleated RBC 10^3/ul Nucleated RBC % Normal RBC Morphology Hypochromasia Macrocytosis INR (Anticoag Therapy) (0.89-1.11) APTT (26.0-36.3) seconds Patient Temperature ABG pH (7.35-7.45) ABG pCO2 (35-45) mmHg ABG pO2 (80-100) mmHg ABG HCO3 (19-31) mmol/L ABG O2 Saturation (95-98) % ABG Base Excess (-2.0-2.0) Respiration Rate O2 Delivery Device Ventilator Type Vent Mode FiO2 Inspiratory Time PEEP Pressure Support Pressure Control EPAP IPAP BiPAP Sodium (133-145) mmol/L Potassium (3.5-5.0) mmol/L Chloride (101-111) mmol/L Carbon Dioxide (22-32) mmol/L Anion Gap (2-11) mmol/L BUN (6-24) mg/dL Creatinine (0.51-0.95) mg/dL Est GFR ( Amer) (>60) Est GFR (Non-Af Amer) (>60) BUN/Creatinine Ratio (8-20) Glucose (70-100) mg/dL Lactic Acid 1.4 (0.5-2.0) mmol/L Calcium (8.6-10.3) mg/dL Magnesium (1.9-2.7) mg/dL Total Bilirubin (0.2-1.0) mg/dL AST (13-39) U/L ALT (7-52) U/L Alkaline Phosphatase (34-104) U/L Total Creatine Kinase (10-223) U/L CK-MB (CK-2) (0.6-6.3) ng/mL Troponin I (<0.04) ng/mL B-Natriuretic Peptide 857 H ( - 100) pg/mL Total Protein (6.4-8.9) g/dL Albumin (3.2-5.2) g/dL Globulin (2-4) g/dL Albumin/Globulin Ratio (1-3) Blood Type B Positive Antibody Screen Negative Crossmatch See Detail 07/26/16 Range/Units 12:25 WBC (3.5-10.8) 10^3/ul RBC (4.0-5.4) 10^6/ul Hgb (12.0-16.0) g/dl Hct (35-47) % MCV (80-97) fL MCH (27-31) pg MCHC (31-36) g/dl RDW (10.5-15) % Plt Count (150-450) 10^3/ul MPV (7.4-10.4) um3 Neut % (Auto) (38-83) % Lymph % (Auto) (25-47) % [place] % (Auto) (1-9) % Eos % (Auto) (0-6) % Baso % (Auto) (0-2) % Absolute Neuts (auto) (1.5-7.7) 10^3/ul Absolute Lymphs (auto) (1.0-4.8) 10^3/ul Absolute Monos (auto) (0-0.8) 10^3/ul Absolute Eos (auto) (0-0.6) 10^3/ul Absolute Basos (auto) (0-0.2) 10^3/ul Absolute Nucleated RBC 10^3/ul Nucleated RBC % Normal RBC Morphology Hypochromasia Macrocytosis INR (Anticoag Therapy) (0.89-1.11) APTT (26.0-36.3) seconds Patient Temperature Not Reportable ABG pH 7.54 H (7.35-7.45) ABG pCO2 30 L (35-45) mmHg ABG pO2 132 H (80-100) mmHg ABG HCO3 27.2 (19-31) mmol/L ABG O2 Saturation 99.9 H (95-98) % ABG Base Excess 2.9 H (-2.0-2.0) Respiration Rate Not Reportable O2 Delivery Device Nasal cannula Ventilator Type Not Reportable Vent Mode Not Reportable FiO2 6 Inspiratory Time Not Reportable PEEP Not Reportable Pressure Support Not Reportable Pressure Control Not Reportable EPAP Not Reportable IPAP Not Reportable BiPAP Not Reportable Sodium (133-145) mmol/L Potassium (3.5-5.0) mmol/L Chloride (101-111) mmol/L Carbon Dioxide (22-32) mmol/L Anion Gap (2-11) mmol/L BUN (6-24) mg/dL Creatinine (0.51-0.95) mg/dL Est GFR ( Amer) (>60) Est GFR (Non-Af Amer) (>60) BUN/Creatinine Ratio (8-20) Glucose (70-100) mg/dL Lactic Acid (0.5-2.0) mmol/L Calcium (8.6-10.3) mg/dL Magnesium (1.9-2.7) mg/dL Total Bilirubin (0.2-1.0) mg/dL AST (13-39) U/L ALT (7-52) U/L Alkaline Phosphatase (34-104) U/L Total Creatine Kinase (10-223) U/L CK-MB (CK-2) (0.6-6.3) ng/mL Troponin I (<0.04) ng/mL B-Natriuretic Peptide ( - 100) pg/mL Total Protein (6.4-8.9) g/dL Albumin (3.2-5.2) g/dL Globulin (2-4) g/dL Albumin/Globulin Ratio (1-3) Blood Type Antibody Screen Crossmatch Assess/Plan/Problems-Billing Assessment: 45 yo F h/o ESRD on HD, afib, HTN, HLD, h/o SVC syndrome, h/o DVT/PE, h/o AVR [place] [facility] [place] then returned with DAH, then returned again with afib RVR and associated NSTEMI, transferred to [facility] where pt describes LHC "with stents" and "fixing my valve" which sounds like a balloon angioplasty now returning with cardiogenic shock in setting of bradycardia in setting of hyperkalemia s/p GI illness and missed dialysis session - Patient Problems (1) Cardiogenic shock Comment: On presentation Bradycardia in setting of K >7 responded to atropine, dopamine, and HD (2) Hyperkalemia Comment: Had GI illness then missed dialysis session both likely contributing to hyperkalemia c/w HD (3) Seizures Comment: In setting of hypoxia and cardiogenic shock Has history of seizures on no AEDs (4) Anemia Comment: In setting of chronic illness and chronic kidney disease Received 2 U PRBC on presentation and another unit 07/29/16 trend. (5) Atrial fibrillation Comment: Increase cardizem from 60 to 90 Q6h increase coumadin to 5mg will not bridge with heparin given recent pulmonary hemorrhage (6) Hypertension Comment: increase cardizem restarted novasc 3/5 clonidine,labetalol on hold (7) Pulmonary embolism Comment: Restarting coumadin. (8) Pulmonary hemorrhage Comment: Start coumadin for PE and afib but slowly given recent h/o pulm hemorrhage (9) Congestive heart failure Comment: EF 55-60%, severe LVH chronic compensated diastolic lasix on hold c/w HD (10) Aortic valve replaced Comment: s/p suspected recent balloon angio obtaining records (11) CAD (coronary artery disease) Comment: s/p recent suspected PCI on no anti platelets start ASA obtain records ask family for medications (12) DVT prophylaxis Comment: SQ heparin SCDs coumadin
[2016-07-29] MEDS ORDERED: Warfarin TAB(*) 5 MG PO SCH (17:00)
[2016-07-29] MEDS: Diltiazem TAB* 30 MG PO SCH (21:24)
[2016-07-30] MEDS: Diltiazem TAB* 30 MG PO SCH ×2 (02:37→08:26)
[2016-07-30 05:29] LABS: Hematocrit 25 % (35-47); Hemoglobin 8.3 g/dl (12.0-16.0); Mean Corpuscular HGB Conc 33 g/dl (31-36); Mean Corpuscular Hemoglobin 31 pg (27-31); Mean Corpuscular Volume 94 fL (80-97); Mean Platelet Volume 9 um3 (7.4-10.4); Red Blood Count 2.65 10^6/ul (4.0-5.4); Red Cell Distribution Width 18 % (10.5-15); White Blood Count 6.3 10^3/ul (3.5-10.8)
[2016-07-30 05:41] LABS: BUN/Creatinine Ratio 6.8 (8-20); Calcium 8.9 mg/dL (8.6-10.3); EGFR African American 8.8 (>60); EGFR Non-African American 6.8 (>60); Potassium 4.5 mmol/L (3.5-5.0)
[2016-07-30] MEDS: Heparin VIAL(*) 5000 UNITS/ML VIAL (FIVE THOUSAND) SUBCUT SCH (06:13)
[2016-07-30] MEDS: Oxymetazoline 0.05% NASAL SPR* 15 ML BTL BOTH NARES SCH (08:25)
[2016-07-30] MEDS: Tiotropium CAP.INH* CAP.INH/18 MCG INH SCH (08:25)
[2016-07-30] MEDS: Aspirin EC Low Dose* 81 MG TAB.EC PO SCH (08:26)
[2016-07-30] MEDS: Sevelamer TAB* 800 MG PO SCH ×2 (08:26→12:17)
[2016-07-30] MEDS ORDERED: Diltiazem CD CAP* 180 MG PO ONE (10:09)
[2016-07-30] MEDS ORDERED: ALPRAZolam TAB* 0.25 MG PO PRN (12:06)
[2016-07-30] MEDS: oxyCODONE TAB* 5 MG TAB PO PRN (12:18)
[2016-07-30 12:49] VITALS: BP 170/109
--- NOTE | 2016-07-31 02:06 | DS ---
DISCHARGE SUMMARY: DATE OF ADMISSION: 07/26/16 DATE OF DISCHARGE: 07/30/16 PRIMARY CARE PROVIDER: Dr. Diogo Burns. PRIMARY DIAGNOSES: 1. Cardiogenic shock. 2. Hyperkalemia. 3. Seizures. SECONDARY DIAGNOSES: Include: 1. Anemia. 2. Atrial fibrillation. 3. Hypertension. 4. History of pulmonary embolism. 5. History of end-stage renal disease, on hemodialysis. 6. History of chronic compensated diastolic heart dysfunction. 7. History of aortic valve replacement, status post suspected recent balloon angio. 8. Coronary artery disease. MEDICATIONS ON DISCHARGE: Please note discontinuation of clonidine as well as labetalol to be restarted as blood pressure and heart rate tolerate. DISCHARGE MEDICATIONS: 1. Renvela 4800 mg 3 times daily with meals. 2. Spiriva 1 cap inhaled daily. 3. Albuterol nebulizer 2.5 mg inhaled every 6 hours as needed for shortness of breath or wheeze. 4. Percocet 5/325 mg 1 tab every 6 hours as needed for pain. 5. Xanax 0.25 mg times a day as needed for anxiety. 6. Lyrica 50 mg at bedtime. 7. Coumadin 5 mg in the evening. 8. Metoprolol tartrate 12.5 mg twice daily. 9. Cardizem CD 240 mg daily. 10. Sensipar 30 mg daily. 11. Atorvastatin 80 mg in the evening. 12. Aspirin 81 mg daily. 13. Amlodipine 5 mg daily. PERTINENT LABORATORY DATA: Hemoglobin on discharge 8.3, hematocrit 25. INR on discharge 1.0. HISTORY OF PRESENT ILLNESS AND HOSPITAL COURSE: This is a 45-year-old female with complicated past medical history including the above who has had multiple recent hospital stays at [facility] throughout April and May presenting what was suspected to be a pulmonary embolism, returning with diffuse alveolar hemorrhage and concerning with non-ST elevated [place], transferred to [facility] in May. Despite multiple attempts over the last 3 days, we have been unable to obtain records from [facility] pertaining to events of her last hospital stay , however. In discussion with Ms. Joseph, it sounds that as if she underwent a cardiac catheterization with potentially the placement of a stent as well as balloon angioplasty of her aortic valve, but she reports this was not working correctly, which was indicated on transthoracic echocardiogram prior to her transfer at that time. She returned home, had been doing well; however, had diarrheal illness for several days and missed dialysis on the day prior to presentation. She was feeling unwell and when she presented, was found to be in cardiogenic shock, heart rate of 35. Blood pressure of 68/45. She received atropine and was placed on the dopamine drip, transferred to the ICU under the care of Dr. Humphrey. Her heart rate and blood pressure improved. Her potassium on presentation is 7.3 thought to be contributing to her bradycardia, although it should be noted she is on multiple medications including Cardizem, metoprolol, labetalol, and narcotics. It is unclear what she was taking and whether the doses of these medications contributed. With improvement in her heart rate, her blood pressure improved. She received 2 units of packed red blood cells during her critical illness and another unit prior to discharge. There was no evidence of ongoing bleeding. Her anemia was thought to be largely contributed to anemia of chronic disease as well as her end-stage renal disease. Her Cardizem was titrated to back up to achieve heart rate control, on the day of discharge was 80 beats per minute. She will be discharged on 240 mg of Cardizem and reinitiated on metoprolol given the suspected history of CAD and recent stenting. She was not on aspirin. On presentation, aspirin will be reinstated, although she is also not on Plavix nor Brilinta, or other antiplatelet agent. It is unclear whether she received a stent at [facility] and whether she would warrant these medications, hence the aggressive attempts to obtain records. During the course of her hospital stay, her INR trended down from 2.5 to 1.0, which is important given her history of pulmonary embolism, multiple venothromboembolic events. She was restarted at 2 mg, titrated up to 5 mg while INR continues to trend down. She will be discharged on 5 mg with an INR to be checked on Friday at her dialysis session. She is to follow up with Dr. Osorio in 1 week from this discharge where careful attention to her blood pressure should be paid. It should be noted that her clonidine and labetalol are held on discharge, can be reinstituted if blood pressure tolerates. Additionally, metoprolol could be increased. She has been instructed to bring the medication she is taking to all visits including next week and this including with this author when she visits to establish care at the end of this month. There are no complications during the patient's hospital stay. Reasons to return to the hospital including, but not limited to, inability to proceed to dialysis at any time, inability to obtain or tolerate medication, chest pain, shortness of breath, lightheadedness, nausea, vomiting, loss of consciousness, near loss of consciousness, difficulty breathing, bleeding from any source, headache, discussed at length with the patient. She acknowledged understanding. TIME SPENT: Greater than 60 minutes was spent on discharge of the patient; greater than half was [id number] with the patient. CC: Dr. Diogo Burns; Dr. Franck Osorio* [id number]/CPS #: [id number] MTDD
== END 2016-07-30 13:23 | disposition home or self-care (01) | DRG 308 ==
LOC: ED 11:45 → ICU 12:44 → MEDTELE 07-27 11:29
PROVIDERS: ADMIT Internal Medicine Critical Care Medicine; ATTEND Internal Medicine
PROC: 30233N1 Transfusion of Nonautologous Red Blood Cells into Peripheral Vein, Percutaneous Approach (ICD-10-PCS; principal; 2016-07-26)
PROC: 5A1D60Z (ICD-10-PCS; 2016-07-29)
DX: R00.1 Bradycardia, unspecified (principal); R57.0 Cardiogenic shock; I13.2 Hypertensive heart and chronic kidney disease with heart failure and with stage 5 chronic kidney disease, or end stage renal disease; G93.1 Anoxic brain damage, not elsewhere classified; N18.6 End stage renal disease; I50.32 Chronic diastolic (congestive) heart failure; E87.5 Hyperkalemia; I25.10 Atherosclerotic heart disease of native coronary artery without angina pectoris; D63.1 Anemia in chronic kidney disease; G40.909 Epilepsy, unspecified, not intractable, without status epilepticus; E78.5 Hyperlipidemia, unspecified; F41.8 Other specified anxiety disorders; I48.91 Unspecified atrial fibrillation; Z99.2 Dependence on renal dialysis; Z95.2 Presence of prosthetic heart valve; Z95.5 Presence of coronary angioplasty implant and graft; Z91.041 Radiographic dye allergy status; Z88.0 Allergy status to penicillin; Z88.8 Allergy status to other drugs, medicaments and biological substances; Z79.01 Long term (current) use of anticoagulants; Z79.891 Long term (current) use of opiate analgesic; Z79.899 Other long term (current) drug therapy
CPT/HCPCS: 36415; 36600; 71010; 80048; 80053; 82550; 82553; 82565; 82803; 83605; 83735; 83880; 84100; 84484; 84520; 85025; 85027; 85610; 85730; 86850; 86900; 86901; 86922; 90935; 93005; 93990; 94760; A9270-GY; G0257; J0610; J0885; J1265; J1644; J2405; P9040

== ENCOUNTER 2016-09-09 21:32 | Inpatient (IN) | payer MEDICARE, MEDICAID ==
[2016-09-09] MEDS ORDERED: Morphine INJ* 4 MG/ML 1 ML SYRINGE IV ONE (21:39)
[2016-09-09 22:05] LABS: Hematocrit 31 % (35-47); Hemoglobin 10.6 g/dl (12.0-16.0); Mean Corpuscular HGB Conc 34 g/dl (31-36); Mean Corpuscular Hemoglobin 33 pg (27-31); Mean Corpuscular Volume 96 fL (80-97); Mean Platelet Volume 8 um3 (7.4-10.4); Red Blood Count 3.27 10^6/ul (4.0-5.4); Red Cell Distribution Width 17 % (10.5-15); White Blood Count 7.2 10^3/ul (3.5-10.8)
[2016-09-09 22:09] LABS: Add Diff/Slide Review? Manual Diff Added; Comments Flag Yes
[2016-09-09] MEDS ORDERED: Ondansetron INJ* 2 MG/ML VIAL ONE (22:12)
[2016-09-09] MEDS ORDERED: Ondansetron INJ* 2 MG/ML VIAL IV ONE (22:19)
--- NOTE | 2016-09-09 22:20 | ED ---
I, Oh,Sodinorah, scribed for Morales Mendiola MD on 09/09/16 at 2146 . HPI Chest Pain - HPI Summary HPI Summary: This 45 y/o female presents to ED via ambulance for mid sternal, non radiating 10/10 CP since . CP has been constant since the onset. Pt initially dismissed the pain as gas-related, but called ambulance when CP gradually worsens and persists to this evening. Deep breath makes it worse. Positive dyspnea. She is noted by EMT with clear breath sound en route. Pt was given 2x NTG and 4x ASA as EMS RN POOL. PMHx is significant for end stage renal dz with dialysis on Friday , , and Friday, PE, afib, and CAD. Full code status. Pt is currently on Coumadin and metoprolol. Pt reports that she was admitted to hospital with similar CP 2 years ago. - History of Current Complaint Hx Obtained From: Patient, Medical Records Onset/Duration: Started Days Ago, Atraumatic, Still Present Timing: Constant Pain Intensity: 10 Pain Scale Used: 0-10 Numeric Chest Pain Location: Mid Sternal Chest Pain Radiates: No Character: Dull/Aching Aggravating Factor(s): Deep Breaths Alleviating Factor(s): Nothing Associated Signs and Symptoms: Positive: Chest Pain, Shortness of Breath. Negative: Fever - Additional Pertinent History Primary Care Physician: JOHN - Allergy/Home Medications Allergies/Adverse Reactions: Allergies Allergy/AdvReac Type Severity Reaction Status Date / Time Iodixanol [From Visipaque] Allergy Severe Airway Verified 07/26/16 12:18 Obstruction Lisinopril Allergy Severe Difficulty Verified 07/26/16 12:18 Breathing Penicillins Allergy Severe HIVES,SWELLING Verified 07/26/16 12:18 THROAT Cephalosporins Allergy not Verified 07/26/16 12:18 specified PMH/Surg Hx/FS Hx/Imm Hx Endocrine/Hematology History: Reports: Hx Anticoagulant Therapy, Hx Blood Transfusions, Hx Unexplained Bleeding Denies: Hx Blood Disorders, Hx Bone Marrow Disease, Hx Diabetes, Hx Systemic Lupus Erythematosus, Hx Sickle Cell Disease, Hx Thyroid Disease, Hx Anemia, Other Endocrine/Hematological Disorders Cardiovascular History: Reports: Hx Cardiomegaly, Hx Congestive Heart Failure, Hx Coronary Artery Disease, Hx Deep Vein Thrombosis, Hx Hypercholesterolemia, Hx Hypertension, Hx Valvular Heart Disease, Other Cardiovascular Problems/ Disorders - 2 artificial heart valves; Hx of endocarditis Denies: Hx Aneurysm, Hx Angina, Hx Angioplasty, Hx Auto Implanted Cardiovert Defib, Hx Cardiac Arrest, Hx Congenital Heart Disease, Hx Embolism, Hx Hypotension, Hx Pacemaker/ICD, Hx Peripheral Vascular Disease, Hx Rheumatic Fever, Hx Syncope Respiratory History: Reports: Hx Asthma, Hx Chronic Obstructive Pulmonary Disease (COPD), Hx Pneumonia, Hx Pulmonary Edema, Hx Pulmonary Embolism, Other Respiratory Problems/Disorders - PULMONARY EDEMA Denies: Hx Chronic Bronchitis, Hx Cystic Fibrosis, Hx Lung Cancer, Hx Pleural Effusion, Hx Seasonal Allergies, Hx Sleep Apnea History: Reports: Hx Chronic Renal Failure, Hx Dialysis - ESRD, [place] ON / FRI, Hx Renal Disease Denies: Hx Benign Prostatic Hyperplasia, Hx Kidney Infection, Hx Kidney Stones, Other Problems/Disorders Musculoskeletal History: Reports: Hx Arthritis Denies: Hx Back Problems, Hx Bursitis, Hx Congenital Bone Abnormalities, Hx Fibromyalgia, Hx Gout, Hx Orthopedic Injury, Hx Osteoporosis, Hx Scoliosis, Hx Tendonitis, Other Musculoskeletal History Sensory History: Reports: Hx Contacts or Glasses - glasses are at home Denies: Hx Hearing Aid Opthamlomology History: Reports: Hx Contacts or Glasses - glasses are at home Neurological History: Denies: Hx Seizures Psychiatric History: Reports: Hx Anxiety, Hx Depression Denies: Hx Attention Deficit Hyperactivity Disorder, Hx Eating Disorder, Hx Panic Disorder, Hx Post Traumatic Stress Disorder, Hx Inpatient Treatment, Hx Community Mental Health Tx, Hx Schizophrenia, Hx Bipolar Disorder, Hx Suicide Attempt, Hx of Violent Episodes Against Others, Hx Substance Abuse, Other Psychiatric Issues/Disorders - Surgical History Surgery Procedure, Year, and Place: bilateral knees, dialysis tube placed in abdomen( out), fistula tube placement in arm for dialysis Lt arm has been revised. waiting out ok to use [id number], open heart valve replacement, hysterectomy Hx Anesthesia Reactions: No - Immunization History Date of Tetanus Vaccine: Unk Date of Influenza Vaccine: Unk Infectious Disease History: Reports: Hx of Known/Suspected MRSA - Negative this visit Denies: Hx Clostridium Difficile, Hx Hepatitis, Hx Human Immunodeficiency Virus (HIV), Hx Shingles, Hx Tuberculosis, Hx Known/Suspected VRE - Family History Known Family History: Positive: Hypertension - Mother, Diabetes - Mother, Other Family History: Father -- Lung CA - Social History Alcohol Use: None Hx Substance Use: No Substance Use Type: Reports: Marijuana Hx Tobacco Use: Yes Smoking Status (MU): Former Smoker Type: Cigarettes Amount Used/How Often: 1/2 PPD Length of Time of Smoking/Using Tobacco: 15 Have You Smoked in the Last Year: Yes Review of Systems Negative: Fever Positive: Chest Pain Positive: Other - dyspnea All Other Systems Reviewed And Are Negative: Yes Physical Exam Triage Information Reviewed: Yes Vital Signs On Initial Exam: Initial Vitals Temp Pulse Resp BP Pulse Ox 98.4 F 90 22 163/101 100 09/09/16 21:46 09/09/16 21:46 09/09/16 21:46 09/09/16 21:46 09/09/16 21:46 Vital Signs Reviewed: Yes Appearance: Positive: Ill-Appearing, Pain Distress - moderate discomfirt Skin: Positive: Warm Eyes: Positive: HUMZA ENT: Positive: Hearing grossly normal Neck: Positive: Supple Respiratory/Lung Sounds: Positive: Breath Sounds Present Cardiovascular: Positive: Murmur, Tachycardia Abdomen Description: Positive: Nontender, Soft Bowel Sounds: Positive: Present Musculoskeletal: Positive: Strength/ROM Intact Neurological: Positive: Sensory/Motor Intact, Alert, Oriented to Person Place, Time Diagnostics - Vital Signs Vital Signs Temp Pulse Resp BP Pulse Ox 09/09/16 22:17 18 09/09/16 21:47 98.4 F 90 22 163/101 100 09/09/16 21:46 98.4 F 90 22 163/101 100 - Laboratory Lab Results: Lab Results 09/09/16 Range/Units 21:55 WBC 7.2 (3.5-10.8) 10^3/ul RBC 3.27 L (4.0-5.4) 10^6/ul Hgb 10.6 L (12.0-16.0) g/dl Hct 31 L (35-47) % MCV 96 (80-97) fL MCH 33 H (27-31) pg MCHC 34 (31-36) g/dl RDW 17 H (10.5-15) % Plt Count 203 (150-450) 10^3/ul MPV 8 (7.4-10.4) um3 Absolute Neuts (auto) Pending Absolute Lymphs (auto) Pending Absolute Monos (auto) Pending Absolute Eos (auto) Pending Absolute Basos (auto) Pending Absolute Nucleated RBC Pending Neutrophils % Pending Normal RBC Morphology Pending Result Diagrams: 09/10/16 00:55 09/10/16 00:40 Lab Statement: Any lab studies that have been ordered have been reviewed, and results considered in the medical decision making process. - Radiology CXR Radiology Interpretation Completed By: ED Physician - See EMR - EKG 2152 EKG Rhythm: Atrial Fibrillation - at 78 bpm EKG Interpretation: Mild ventricular responses Re-Evaluation - Re-Evaluation First Eval Comment: sob, hx pe, subtherapeutic inr allergy to contrast will tx for presumed pe and admit Chest Pain Course/Dx - Diagnoses Provider Diagnoses: Pulmonary embolism - Provider Notifications Discussed Care Of Patient With: Dr. Shepherd (Hospitalist) at 0012 AM Instructed by Provider To: Admit As Inpatient - Critical Care Time Critical Care Time: 30-74 min Discharge - Discharge Plan Condition: Guarded Disposition: [facility]MITTED TO [facility] The documentation as recorded by the Suman sosa Soohyun accurately reflects the service I personally performed and the decisions made by me, Morales Mendiola MD.
[2016-09-09 22:23] LABS: Albumin 4.2 g/dL (3.2-5.2); BUN/Creatinine Ratio 4.4 (8-20); Calcium 9.1 mg/dL (8.6-10.3); EGFR Non-African American 4.6 (>60); Globulin 3.2 g/dL (2-4); Total Bilirubin 0.6 mg/dL (0.2-1.0); Total Protein 7.4 g/dL (6.4-8.9)
[2016-09-09] MEDS ORDERED: cloNIDine TAB* 0.1 MG PO ONE (22:25)
[2016-09-09 22:30] LABS: Eosinophils % 3 % (0-6); Macrocytosis 2+; Neutrophil % 46 % (38-83); Reactive Lymph % 1 % (0-6)
[2016-09-09 22:32] LABS: Troponin I 0.05 ng/mL (<0.04)
[2016-09-09 22:33] LABS: Add Path Review? YES
[2016-09-09] MEDS ORDERED: HYDROmorphone* 1 MG/ML 1 ML SYR IV SLOW PU ONE (23:19)
[2016-09-10] MEDS ORDERED: HYDROmorphone* 1 MG/ML 1 ML SYR IV SLOW PU PRN (00:38)
[2016-09-10] MEDS ORDERED: Heparin VIAL(*) 5000 UNITS/ML VIAL (FIVE THOUSAND) IV SCH (01:00)
[2016-09-10 01:13] LABS: Hematocrit 30 % (35-47); Hemoglobin 9.9 g/dl (12.0-16.0); Mean Corpuscular HGB Conc 33 g/dl (31-36); Mean Corpuscular Hemoglobin 32 pg (27-31); Mean Corpuscular Volume 98 fL (80-97); Mean Platelet Volume 8 um3 (7.4-10.4); Red Blood Count 3.06 10^6/ul (4.0-5.4); Red Cell Distribution Width 17 % (10.5-15)
[2016-09-10 01:15] LABS: Troponin I 0.06 ng/mL (<0.04)
[2016-09-10] MEDS: Heparin DRIP 25,000 UNITS(*) 25,000 UNITS/500 ML BAG IV SCH ×3 (01:15→20:25)
[2016-09-10] MEDS: HYDROmorphone* 1 MG/ML 1 ML SYR IV SLOW PU PRN ×9 (05:04→23:13)
--- NOTE | 2016-09-10 07:41 | RAD ---
INDICATION: Midsternal chest pain COMPARISON: July 26, 2016 TECHNIQUE: PA and lateral views were obtained. FINDINGS: Bones/Soft Tissues: There are no acute bony findings. There is sternotomy Cardiomediastinal: The cardiac silhouette is enlarged. There is prominence of central pulmonary arteries and interstitium compatible with [id number] vascular congestion Lungs: Alveolar change right hemithorax most consistent with early alveolar edema. Pleura: There are no pleural effusions. Other: None IMPRESSION: MILD/MODERATE VASCULAR CONGESTIVE FINDINGS
[2016-09-10] MEDS: Ondansetron INJ* 2 MG/ML VIAL IV PRN ×3 (10:06→18:47)
--- NOTE | 2016-09-10 10:28 | ECHO ---
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 Technical Comments: The study was technically limited due to the patient's inability to lay in the left lateral decubitus position. Completed at 0930. Study done with HOB at 90 degrees. Left Ventricle: The left ventricular chamber size is decreased., borderline Severe concentric left ventricular hypertrophy is observed. Global left ventricular wall motion and contractility are within normal limits. There is normal left ventricular systolic function. The estimated ejection fraction is 60-65%. Ventricular septal wall motion has a post-operative appearance. The patient was unable to perform a Valsalva maneuver. Left Atrium: The left atrium is severely dilated. Right Ventricle: The right ventricular chamber size and systolic function are within normal limits. Right Atrium: The right atrium is moderately dilated. Aortic Valve: The mean gradient of the aortic valve is 30.82 mmHg. A bio-prosthetic aortic valve is present. , # 23 magna ease pericardial valve by history. There is mild aortic regurgitation. It is likely intravalvular but cannot be certain on this study. The average (patient in atrial fibrillation) peak velocity is 3.86 m/s, mean gradient 30.82 mmHg, dimensionless index 0.39. Acceleration time 150 ms. Mitral Valve: Mild mitral annular calcification present. The mitral valve leaflets are mildly thickened. There is mild mitral regurgitation. There is no evidence of mitral stenosis. Tricuspid Valve: The tricuspid valve leaflets are normal. There is mild tricuspid regurgitation. There is evidence of mild pulmonary hypertension. There is no tricuspid stenosis. Pulmonic Valve: The pulmonic valve appears normal. There is a trace pulmonic regurgitation. There is no pulmonic stenosis. Pericardium: The pericardium appears normal. Aorta: There is mild dilatation of the ascending aorta. There is no dilatation of the aortic arch. There is moderate dilatation of the aortic root. Pulmonary Artery: The main pulmonary artery appears normal. Venous: The venous system is not well visualized. Conclusions The left ventricular chamber size is borderline decreased. Severe concentric left ventricular hypertrophy is observed. There is normal left ventricular systolic function. The estimated ejection fraction is 60-65%. The left atrium is severely dilated. The right ventricular chamber size and systolic function are within normal limits. The right atrium is moderately dilated. A bio-prosthetic aortic valve is present. Mild aortic valve regurgitation noted. There are abnormal elevated peak velocity and gradient through the aortic valve of uncertain cause/significance. Compared to earliest post-operative TTE available for review from 06/2014, the peak velocity/mean gradient are mildlly more elevated from 3.4 m/s and 25.7 mmHg possibly suggestive of some progressive pathology. The peak velocity and mean gradient are improved from 5.1 m/s and 54.16 mmHg from 05/27/2016 TTE although patient had severe anemia (hemoglobin 6.7) at that time which could account for higher values then. The bioprosthesis/leaflets/LVOT are not well visualized. Transesophageal echo ([place]) could be considered to further evaluate Measurements Name Value Normal Range RVIDd (AP) 2D 3.4 cm (0.9 - 2.6) RVDdMajor (2D) 4.1 cm (2.2 - 4.4) RA (A4C)W 5.5 cm (2.9 - 4.6) IVSd (2D) 1.9 cm (0.6 - 1) LVPWd (2D) 2.5 cm (0.6 - 1) LVIDd (2D) 4.1 cm (3.6 - 5.4) LVIDs (2D) 2.8 cm - Aortic Annulus 2.2 cm (1.4 - 2.6) Ao root diameter (2D) 3.9 cm (2.1 - 3.5) Ascending Ao 3.7 cm (2.1 - 3.4) Aortic arch 2.5 cm (1.8 - 3.4) Descending Ao 0.6 cm - LA dimension (AP) 2D 6.3 cm (2.3 - 3.8) LAd ISD 4CH 7.5 cm (2.9 - 5.3) LA ISD 4CH W 5 cm (2.5 - 4.5) Name Value Normal Range LA ESV SP 4CH (A/L) 101.07 ml - LA ESV SP 2CH (A/L) 239.53 ml - LA ESV BP (A/L) 163.38 ml - LA ESV BP (A/L) index 80.69 ml/m2 - LA ESV SP 4CH (MOD) 98.62 ml - LA ESV SP 2CH (MOD) 238.98 ml - Name Value Normal Range MV E-wave Vmax 0.6 m/sec - MV deceleration time 96 msec - MV A-wave Vmax 1.7 m/sec - MV E:A ratio 0.35 ratio - LV septal e' Vmax 0.1 m/sec - LV lateral e' Vmax 0.09 m/sec - LV E:e' septal ratio 6 ratio - LV E:e' lateral ratio 6.67 ratio - Name Value Normal Range AV Vmax 3.86 m/sec - AV VTI 85.5 cm - AV mean gradient 30.82 mmHg - LVOT VTI 33.7 cm - LVOT peak gradient 8.48 mmHg - LVOT mean gradient 4.84 mmHg - SV LVOT 73.7 ml - Name Value Normal Range MV Vmax 1.8 m/sec - MV VTI 36.2 cm - MV peak gradient 13.4 mmHg - MV mean gradient 3.63 mmHg - MV PHT 18 msec - MVA (continuity VTI) 2 cm2 - Name Value Normal Range TR Vmax 2.8 m/sec - TR peak gradient 31 mmHg - RAP 8 mmHg - RVSP 39 mmHg - Name Value Normal Range PV Vmax 1.1 m/sec - PV peak gradient 4.85 mmHg -
[2016-09-10] MEDS ORDERED: Diatrizoate Meg/Sod(CONTRAST) 30 ML ORAL.SOLN PO ONE (14:24)
[2016-09-10] MEDS ORDERED: Albuterol 2.5 MG/3 ML NEB.SOL* (0.083%) INH PRN (14:25)
[2016-09-10] MEDS ORDERED: oxyCODONE/Acetamin 5/325 MG* TAB PO PRN (14:25)
[2016-09-10] MEDS ORDERED: Al Hydrox/Mg Hydrox/Simet LIQ* 30 ML UDC PO ONE (14:31)
[2016-09-10] MEDS ORDERED: Nitroglycerin TAB 0.4 MG* 0.4 MG TAB SL ONE (14:32)
[2016-09-10] MEDS: ALPRAZolam TAB* 0.25 MG PO PRN (14:52)
--- NOTE | 2016-09-10 15:07 | HP ---
HISTORY AND PHYSICAL: DATE OF ADMISSION: 09/10/16 CHIEF COMPLAINT: Chest pain. HISTORY OF PRESENT ILLNESS: The patient is a 45-year-old woman with complicated past medical history that includes DVT and pulmonary embolism, who was apparently on Coumadin and woke up this morning with significant chest pain. She felt she could not catch her breath from it. It was worse when she took a deep breath. She tried to endure it during the day, but it became so significant. She eventually had come to the hospital. She denied any wheezing , cough, or fever or chills. She says it is very similar to the pulmonary embolism she had before but the pain is much worse at this time. In the ED, the patient was evaluated and found that her INR was subtherapeutic. She said she does have an INR checked every Friday and she was told it was subtherapeutic last week, does not recall being told to change dosage of her medication. PAST MEDICAL HISTORY: Significant for end-stage renal disease requiring hemodialysis, COPD, atrial fibrillation, hypertension, hyperlipidemia, coronary artery disease, history of CHF with EF of 55% to 60% and likely diastolic CHF, endocarditis, mitral and aortic valve replacements, history of DVT and PE as noted earlier, superior vena syndrome, depression, anxiety. PAST SURGICAL HISTORY: Significant for cardiac valve replacements as noted above, both were porcine. Hysterectomy, PD catheter placement, AV fistulas x3, arthroscopies, and a CABG. MEDICATIONS: Unknown, as she states they were changed since her last medical admission, so we need to obtain that from her PCP. ALLERGIES: IODIXANOL, which will result in airway obstruction; LISINOPRIL with difficulty breathing; PENICILLINS with hives and throat swelling; CEPHALOSPORINS unknown. FAMILY HISTORY: Significant for mother with hypertension and diabetes. Father had lung cancer. SOCIAL HISTORY: Half a pack a day smoker. No alcohol. No recreational drug use. Lives with children. Surrogate decision maker is her friend, Venkat. REVIEW OF SYSTEMS: A 14-point review of systems was completed with the patient. All pertinent positives and negatives are in the history of present illness, otherwise is negative. PHYSICAL EXAMINATION GENERAL: Pleasant woman, uncomfortable, but not in acute distress. VITAL SIGNS: Her temperature is 97.9 degrees, heart rate is 74 beats per minute , respiratory rate 18 breaths per minute, pulse ox 94% on 2 L, blood pressure 156/92. HEENT: Normocephalic, atraumatic. Pupils equal, round, and reactive to light. Moist mucous membranes. NECK: Supple. No JVD, bruits, palpable thyroid or lymphadenopathy. CHEST: She has got diminished breath sounds, but is clear to auscultation. CARDIOVASCULAR: S1, S2 appreciated, irregular rate. ABDOMEN: Positive bowel sounds in all 4 quadrants. Soft, nontender, nondistended. EXTREMITIES: No cyanosis or clubbing. AV fistula is in place. NEUROLOGIC: Alert and oriented x3. Moves all extremities. SKIN: No rashes. LABORATORY DATA: White count 7.2, hemoglobin 10.6, hematocrit 31, platelets are 203. Sodium 132, potassium 4, chloride 89, CO2 is 28, BUN 40, creatinine 9.19, glucose is 91. Troponin 0.05. D-dimer is 463. INR is only 0.93. EKG shows AFib with a moderate ventricular response. Chest x-ray shows cardiomegaly with some right-sided adenopathy. ASSESSMENT AND PLAN: 1. Likely PE recurrence. The patient's symptoms are similar. Her INR has been subtherapeutic for a month and a half. I will heparinize the patient. I will get a V/Q scan in the morning, as she has an allergy to IV DYE and I will also get a transthoracic echocardiogram. I will give her Dilaudid p.r.n. for pain. May ask Pulmonary to weigh in depending on findings. 2. End-stage renal disease. Continue dialysis. 3. Hypertension. Actually adequate control today. We will get current medications and place her back on them. 4. Chronic obstructive pulmonary disease. Again, we will get patient's current medications and place the patient on them. Currently, no wheezing and no active COPD exacerbation. 5. Fluids, Electrolytes, Nutrition: Renal diet. 6. Deep venous thrombosis prophylaxis: She is on heparin drip. 7. The patient is a full code. TIME SPENT: Over 80 minutes were spent on this H and P, more than 45 minutes of which was spent in direct [id number] contact with the patient in evaluation , physical exam, counseling, coordination of care. CC: Dr. Diogo Burns; Dr. Franck Osorio* [id number]/[facility] #: [id number] [facility] HOSPITALLong
[2016-09-10] MEDS: Sevelamer TAB* 800 MG PO SCH (16:23)
[2016-09-10] MEDS: Atorvastatin* 80 MG TAB PO SCH (16:26)
[2016-09-10] MEDS: Warfarin TAB(*) 5 MG PO SCH (16:26)
--- NOTE | 2016-09-10 16:26 | RAD ---
INDICATION: Severe upper abdominal pain. COMPARISON: Comparison is made with a prior CT of the abdomen and pelvis from June 05, 2014. TECHNIQUE: A CT scan of the abdomen was performed without intravenous or oral contrast. Contiguous axial sections were obtained from the lung bases through the tops of the iliac crests. Images were reconstructed in the coronal and sagittal planes. FINDINGS: The lung bases are clear. No pleural effusion is present. The heart is markedly enlarged and appears similar to the prior study. No pericardial effusion is present. The liver and spleen are normal in size without significant focal abnormality on this noncontrast study. No calcified gallstones are seen. The pancreas is normal in size. No ductal distention is seen. The adrenal glands appear within normal limits. The kidneys are severely atrophic with small bilateral cysts present. No hydronephrosis is seen. The abdominal aorta is ectatic. There is an aneurysm of the left common iliac artery which is partially visualized on this study measuring 2.2 cm in diameter which appears grossly unchanged from the prior study. There is moderate to severe calcific plaque present. No significant enlarged retroperitoneal lymph nodes are seen. The stomach appears mildly distended with fluid and food debris. The visualized portion of the small bowel and colon appear nondistended. No free intraperitoneal air or fluid is seen. No significant focal osseous abnormality is seen. IMPRESSION: 1. NO EVIDENCE FOR ACUTE FINDING OR CAUSE FOR THE PATIENT'S ABDOMINAL PAIN IS SEEN. 2. CARDIOMEGALY, UNCHANGED. 3. CHRONIC ATROPHIC KIDNEYS. 4. LEFT ILIAC ARTERY ANEURYSM PARTIALLY VISUALIZED AND GROSSLY UNCHANGED
--- NOTE | 2016-09-10 16:45 | PN ---
Subjective Date of Service: 09/10/16 Interval History: Crying in pain Describes pain as squeezing and twisting in and points just below xiphoid Denies SOB or chest pain +nausea feels hungry but vomits after eating Objective Active Medications: Albuterol (Ventolin 2.5 Mg/3 Ml Neb.Tonya*) 2.5 mg INH Q6H PRN PRN Reason: SOB/WHEEZING Alprazolam (Xanax Tab*) 0.25 mg PO TID PRN PRN Reason: ANXIETY Last Admin: 09/10/16 14:52 Dose: 0.25 mg Amlodipine Besylate (Norvasc Tab*) 5 mg PO DAILY [facility] Aspirin (Aspirin Ec Low Dose*) 81 mg PO DAILY [facility] Atorvastatin Calcium (Lipitor*) 80 mg PO 1700 GHASSAN Last Admin: 09/10/16 16:26 Dose: 80 mg Cinacalcet (Sensipar Tab*) 30 mg PO DAILY [facility] Device (Tiotropium Inhaler Device*) 1 each INH 0900 ONE Stop: 09/11/16 09:01 Diltiazem HCl (Cardizem Cd Cap*) 240 mg PO DAILY [facility] Heparin Sodium (Porcine) (Heparin Vial(*)) 0 units IV .PER PROTOCOL GHASSAN PRN Reason: Protocol Hydromorphone HCl (Dilaudid Iv*) 1 mg IV SLOW PU Q2H PRN PRN Reason: PAIN Last Admin: 09/10/16 14:29 Dose: 1 mg Heparin Sodium/Dextrose (Heparin Drip 25,000 Units(*)) 25,000 units in 500 mls @ 0 mls/hr IV .NO INITIAL BOLUS [facility]; As Directed PRN Reason: Protocol Last Admin: 09/10/16 01:15 Dose: 31 mls/hr Metoprolol Tartrate (Lopressor Tab*) 12.5 mg PO BID [facility] Ondansetron HCl (Zofran Inj*) 4 mg IV Q4H PRN PRN Reason: NAUSEA Last Admin: 09/10/16 14:40 Dose: 4 mg Oxycodone/Acetaminophen (Percocet 5/325 Tab*) 1 tab PO Q6H PRN PRN Reason: PAIN - MODERATE Pregabalin (Lyrica Cap(*)) 50 mg PO BEDTIME [facility] Sevelamer Carbonate (Renvela Tab*) 4,800 mg PO TID WITH MEALS GHASSAN Last Admin: 09/10/16 16:23 Dose: 4,800 mg Tiotropium [place] (Spiriva Cap.Inh*) 1 cap INH DAILY [facility] Warfarin Sodium (Coumadin Tab(*)) 5 mg PO DAILY@1700 GHASSAN PRN Reason: Protocol Last Admin: 09/10/16 16:26 Dose: 5 mg Vital Signs 09/10/16 09/10/16 09/10/16 01:30 02:00 02:30 Temperature Pulse Rate 70 76 69 Respiratory 16 16 16 Rate Blood Pressure 161/72 173/111 163/111 (mmHg) O2 Sat by Pulse 100 99 99 Oximetry 09/10/16 09/10/16 09/10/16 03:00 03:10 03:30 Temperature 97.9 F Pulse Rate 72 74 65 Respiratory 13 18 17 Rate Blood Pressure 158/111 156/92 169/113 (mmHg) O2 Sat by Pulse 99 94 99 Oximetry 09/10/16 09/10/16 09/10/16 05:04 06:04 06:39 Temperature Pulse Rate Respiratory 18 18 18 Rate Blood Pressure (mmHg) O2 Sat by Pulse Oximetry 09/10/16 09/10/16 09/10/16 07:07 08:00 09:07 Temperature 98.5 F Pulse Rate 75 Respiratory 18 18 19 Rate Blood Pressure 176/116 (mmHg) O2 Sat by Pulse 99 Oximetry 09/10/16 09/10/16 09/10/16 09:11 10:07 12:12 Temperature 97.4 F Pulse Rate 70 Respiratory 18 18 18 Rate Blood Pressure 150/98 (mmHg) O2 Sat by Pulse 100 Oximetry 09/10/16 09/10/16 09/10/16 12:22 13:22 14:29 Temperature Pulse Rate Respiratory 18 18 18 Rate Blood Pressure (mmHg) O2 Sat by Pulse Oximetry 09/10/16 09/10/16 14:52 15:25 Temperature Pulse Rate Respiratory 18 18 Rate Blood Pressure (mmHg) O2 Sat by Pulse Oximetry Oxygen Devices in Use Now: None Appearance: in pain, no other distress Eyes: No Scleral Icterus, PERRLA Ears/Nose/Mouth/Throat: - - dry MM Neck: NL Appearance and Movements; NL JVP, Trachea Midline Respiratory: Symmetrical Chest Expansion and Respiratory Effort, Clear to Auscultation Cardiovascular: RRR, - - chest wall TTP Abdominal: - - soft, TTP greatest in midline, no rebound or gaurding Lymphatic: No Cervical Adenopathy Extremities: No Edema, - - right knee with effusion Neurological: Alert and Oriented x 3 Result Diagrams: 09/10/16 00:55 09/10/16 00:40 Additional Lab and Data: Lab Results 09/09/16 Range/Units 21:55 WBC 7.2 (3.5-10.8) 10^3/ul RBC 3.27 L (4.0-5.4) 10^6/ul Hgb 10.6 L (12.0-16.0) g/dl Hct 31 L (35-47) % MCV 96 (80-97) fL MCH 33 H (27-31) pg MCHC 34 (31-36) g/dl RDW 17 H (10.5-15) % Plt Count 203 (150-450) 10^3/ul MPV 8 (7.4-10.4) um3 Absolute Neuts (auto) Pending Absolute Lymphs (auto) Pending Absolute Monos (auto) Pending Absolute Eos (auto) Pending Absolute Basos (auto) Pending Absolute Nucleated RBC Pending Neutrophils % Pending Normal RBC Morphology Pending Microbiology and Other Data: Microbiology 09/10/16 04:00 Nasal Screen MRSA (PCR)(RON) - Final Nasal Mrsa Negative Assess/Plan/Problems-Billing Assessment: 45 yo F complicated past medical history including ESRD on HD, DVT/PE complicated by pulmonary hemorrhage, recent NSTEMI in 04/2016, AVR complicated by stenosis s/p perc balloon dilatation returning with chest/abdominal discomfort - Patient Problems (1) Pain Comment: Pain seems more abdominal than chest although chest is TTP CT abdomen did not show pathology although no contrast Continue heparin for known PE tx GI cocktail tx SL nitro (2) End stage renal disease on dialysis SNOMED Code(s): 026155722 (3) Aortic valve replaced Comment: s/p recent balloon dilitation (4) Atrial fibrillation Comment: c/w cardizem c/w coumadin to 5mg (5) COPD (chronic obstructive pulmonary disease) Comment: Stable. Continue PRN nebulizers. (6) DVT prophylaxis Comment: heparin coumadin
--- NOTE | 2016-09-10 19:59 | RAD ---
INDICATION: Right knee pain and swelling COMPARISON: Similar knee radiograph dated February 09, 2009 TECHNIQUE: 3 view radiograph of the right knee. FINDINGS: There are advanced degenerative changes of the right knee including narrowing of the medial greater than lateral compartments. There is bony sclerosis of the articulating surfaces of the medial compartment with the appearance of bone on bone apposition in the posterior medial compartment on the lateral view. There is exuberant marginal osteophyte formation adjacent to the medial and lateral compartments. There is narrowing of the patellofemoral joint with sclerotic change of the articulating services and exuberant marginal osteophyte formation. Surgical devices are seen overlying the right supracondylar femur as well as the medial of midline proximal tibia. There is been interval development of a large joint effusion. There are lobular calcifications overlying the suprapatellar joint space each measuring about 2.5 cm in greatest dimension that have gotten bigger when compared to the previous radiograph. Presumably these are free-floating calcifications in the joint space. Atherosclerotic calcification is noted at the distal SFA and popliteal arteries. IMPRESSION: Since the 2009 knee radiograph there has been development of a large right joint effusion in the setting of advanced degenerative change, postsurgical findings and likely intra-articular calcified bodies as described in the body of the report.
[2016-09-10] MEDS: Pregabalin CAP(*) 50 MG PO SCH (20:26)
[2016-09-10] MEDS ORDERED: Metoprolol Tartrate TAB* 25 MG PO SCH (21:00)
[2016-09-11] MEDS ORDERED: Metoprolol Tartrate TAB* 25 MG PO SCH (00:27)
[2016-09-11] MEDS: Metoprolol Tartrate TAB* 25 MG PO SCH ×3 (01:13→20:26)
[2016-09-11 01:15] LABS: Hematocrit 30 % (35-47); Mean Corpuscular HGB Conc 33 g/dl (31-36); Mean Corpuscular Hemoglobin 32 pg (27-31); Mean Corpuscular Volume 97 fL (80-97); Mean Platelet Volume 8 um3 (7.4-10.4); Red Blood Count 3.11 10^6/ul (4.0-5.4); Red Cell Distribution Width 17 % (10.5-15)
[2016-09-11] MEDS: HYDROmorphone* 2 MG/ML 1 ML SYR IV SLOW PU PRN ×6 (06:52→20:27)
[2016-09-11] MEDS: Sevelamer TAB* 800 MG PO SCH ×3 (06:52→17:31)
[2016-09-11] MEDS: Diltiazem CD CAP* 240 MG PO SCH (07:28)
[2016-09-11] MEDS: Cinacalcet TAB* 30 MG PO SCH (07:28)
[2016-09-11] MEDS: amLODIPine TAB* 5 MG PO SCH (07:29)
[2016-09-11] MEDS: Aspirin EC Low Dose* 81 MG TAB.EC PO SCH (07:29)
[2016-09-11] MEDS: ALPRAZolam TAB* 0.25 MG PO PRN ×2 (07:34→13:26)
[2016-09-11] MEDS ORDERED: Spiriva Inhaler DEVICE* 1 EACH DEVICE INH ONE (09:00)
[2016-09-11] MEDS: Tiotropium CAP.INH* CAP.INH/18 MCG INH SCH (09:55)
[2016-09-11] MEDS ORDERED: Epoetin Alfa* 10,000 UNITS/ML VIAL IV ONE (11:00)
[2016-09-11] MEDS: Ondansetron INJ* 2 MG/ML VIAL IV PRN (12:47)
--- NOTE | 2016-09-11 15:47 | PN ---
Subjective Date of Service: 09/11/16 Interval History: Abdominal pain continues +nausea, emesis after eating No BM in 3 days, denies flatus Objective Active Medications: Albuterol (Ventolin 2.5 Mg/3 Ml Neb.Tonya*) 2.5 mg INH Q6H PRN PRN Reason: SOB/WHEEZING Alprazolam (Xanax Tab*) 0.25 mg PO TID PRN PRN Reason: ANXIETY Last Admin: 09/11/16 13:26 Dose: 0.25 mg Amlodipine Besylate (Norvasc Tab*) 5 mg PO DAILY [facility] Last Admin: 09/11/16 07:29 Dose: 5 mg Aspirin (Aspirin Ec Low Dose*) 81 mg PO DAILY [facility] Last Admin: 09/11/16 07:29 Dose: 81 mg Atorvastatin Calcium (Lipitor*) 80 mg PO 1700 [facility] Last Admin: 09/10/16 16:26 Dose: 80 mg Cinacalcet (Sensipar Tab*) 30 mg PO DAILY [facility] Last Admin: 09/11/16 07:28 Dose: 30 mg Diltiazem HCl (Cardizem Cd Cap*) 240 mg PO DAILY [facility] Last Admin: 09/11/16 07:28 Dose: 240 mg Heparin Sodium (Porcine) (Heparin Vial(*)) 0 units IV .PER PROTOCOL [facility] PRN Reason: Protocol Hydralazine HCl (Apresoline Iv*) 5 mg IV SLOW PU Q6H PRN PRN Reason: SYSTOLIC BP GREATER THAN: Hydromorphone HCl (Dilaudid Iv*) 2 mg IV SLOW PU Q2H PRN PRN Reason: PAIN Last Admin: 09/11/16 15:30 Dose: 2 mg Heparin Sodium/Dextrose (Heparin Drip 25,000 Units(*)) 25,000 units in 500 mls @ 0 mls/hr IV .NO INITIAL BOLUS [facility]; As Directed PRN Reason: Protocol Last Admin: 09/10/16 20:25 Dose: 23 mls/hr Metoprolol Tartrate (Lopressor Tab*) 25 mg PO 0900,2100 [facility] Last Admin: 09/11/16 07:28 Dose: 25 mg Ondansetron HCl (Zofran Inj*) 4 mg IV Q4H PRN PRN Reason: NAUSEA Last Admin: 09/11/16 12:47 Dose: 4 mg Oxycodone/Acetaminophen (Percocet 5/325 Tab*) 1 tab PO Q6H PRN PRN Reason: PAIN - MODERATE Pregabalin (Lyrica Cap(*)) 50 mg PO BEDTIME [facility] Last Admin: 09/10/16 20:26 Dose: 50 mg Sevelamer Carbonate (Renvela Tab*) 4,800 mg PO TID WITH MEALS [facility] Last Admin: 09/11/16 11:16 Dose: 4,800 mg Tiotropium [place] (Spiriva Cap.Inh*) 1 cap INH DAILY [facility] Last Admin: 09/11/16 09:55 Dose: 1 cap Warfarin Sodium (Coumadin Tab(*)) 5 mg PO DAILY@1700 [facility] PRN Reason: Protocol Last Admin: 09/10/16 16:26 Dose: 5 mg Warfarin Sodium (Coumadin Tab(*)) 2 mg PO ONCE@1700 NR PRN Reason: Protocol Stop: 09/11/16 23:59 Vital Signs 09/10/16 09/10/16 09/10/16 16:48 16:52 17:38 Temperature Pulse Rate Respiratory 18 18 18 Rate Blood Pressure (mmHg) O2 Sat by Pulse Oximetry 09/10/16 09/10/16 09/10/16 19:16 20:00 20:26 Temperature 97.8 F Pulse Rate 95 Respiratory 20 19 18 Rate Blood Pressure 187/135 (mmHg) O2 Sat by Pulse 94 Oximetry 09/10/16 09/10/16 09/10/16 20:43 21:43 22:26 Temperature Pulse Rate Respiratory 20 19 20 Rate Blood Pressure (mmHg) O2 Sat by Pulse Oximetry 09/10/16 09/10/16 09/11/16 23:13 23:59 00:13 Temperature 97.8 F Pulse Rate 102 Respiratory 20 20 18 Rate Blood Pressure 203/141 (mmHg) O2 Sat by Pulse 100 Oximetry 09/11/16 09/11/16 09/11/16 04:20 06:44 06:52 Temperature 98.2 F Pulse Rate 116 Respiratory 20 18 18 Rate Blood Pressure 181/130 (mmHg) O2 Sat by Pulse 96 Oximetry 09/11/16 09/11/16 09/11/16 07:23 07:28 07:34 Temperature 97.5 F Pulse Rate 95 Respiratory 20 18 Rate Blood Pressure 198/100 180/88 (mmHg) O2 Sat by Pulse 96 Oximetry 09/11/16 09/11/16 09/11/16 07:52 08:54 11:17 Temperature Pulse Rate Respiratory 18 18 18 Rate Blood Pressure (mmHg) O2 Sat by Pulse Oximetry 09/11/16 09/11/16 09/11/16 13:26 13:28 14:28 Temperature Pulse Rate Respiratory 18 18 18 Rate Blood Pressure (mmHg) O2 Sat by Pulse Oximetry 09/11/16 15:30 Temperature Pulse Rate Respiratory 18 Rate Blood Pressure (mmHg) O2 Sat by Pulse Oximetry Oxygen Devices in Use Now: None Appearance: in pain Eyes: No Scleral Icterus, PERRLA Ears/Nose/Mouth/Throat: - - dry MM Neck: NL Appearance and Movements; NL JVP, Trachea Midline Respiratory: Symmetrical Chest Expansion and Respiratory Effort, Clear to Auscultation Cardiovascular: RRR Abdominal: - - soft, mild distention, TTP epigastrum, decreased BS, no rebound/ guarding Extremities: No Edema Skin: No Rash or Ulcers Neurological: Alert and Oriented x 3 Result Diagrams: 09/11/16 01:01 09/10/16 00:40 Additional Lab and Data: Lab Results 09/09/16 Range/Units 21:55 WBC 7.2 (3.5-10.8) 10^3/ul RBC 3.27 L (4.0-5.4) 10^6/ul Hgb 10.6 L (12.0-16.0) g/dl Hct 31 L (35-47) % MCV 96 (80-97) fL MCH 33 H (27-31) pg MCHC 34 (31-36) g/dl RDW 17 H (10.5-15) % Plt Count 203 (150-450) 10^3/ul MPV 8 (7.4-10.4) um3 Absolute Neuts (auto) Pending Absolute Lymphs (auto) Pending Absolute Monos (auto) Pending Absolute Eos (auto) Pending Absolute Basos (auto) Pending Absolute Nucleated RBC Pending Neutrophils % Pending Normal RBC Morphology Pending Microbiology and Other Data: Microbiology 09/10/16 04:00 Nasal Screen MRSA (PCR)(RON) - Final Nasal Mrsa Negative Assess/Plan/Problems-Billing Assessment: 45 yo F complicated past medical history including ESRD on HD, DVT/PE complicated by pulmonary hemorrhage, recent NSTEMI in 04/2016, AVR complicated by stenosis s/p perc balloon dilatation returning with chest/abdominal discomfort - Patient Problems (1) Pain Comment: Pain seems more abdominal than chest although chest is TTP CT abdomen did not show pathology although no contrast No BM x 3 days. Trial soap suleiman enema. If continues with emesis on eating will place NG tube Continue heparin for known PE tx GI cocktail tx SL nitro (2) End stage renal disease on dialysis SNOMED Code(s): 798838019 (3) Aortic valve replaced Comment: s/p recent balloon dilitation (4) Atrial fibrillation Comment: c/w cardizem and toprol c/w coumadin to 5mg add 2mg booster coumadin dose 09/11 (5) COPD (chronic obstructive pulmonary disease) Comment: Stable. Continue PRN nebulizers. (6) HTN (hypertension) Comment: improved with dialysis but still uncontrolled pain contributing add hydralazine PRN (7) DVT prophylaxis Comment: heparin coumadin
[2016-09-11] MEDS ORDERED: Al Hydrox/Mg Hydrox/Simet LIQ* 30 ML UDC PO SCH (16:00)
[2016-09-11] MEDS: Warfarin TAB(*) 5 MG PO SCH (16:09)
[2016-09-11] MEDS: Atorvastatin* 80 MG TAB PO SCH (16:10)
[2016-09-11] MEDS: hydrALAZINE IV* 20 MG/ML VIAL IV SLOW PU PRN ×2 (16:27→23:59)
[2016-09-11] MEDS ORDERED: Warfarin TAB(*) 2 MG PO ONE (17:00)
[2016-09-11] MEDS ORDERED: LORazepam INJ* 2 MG/ML 1 ML VIAL IV PUSH ONE (17:21)
--- NOTE | 2016-09-11 18:52 | RAD ---
INDICATION: Nasogastric tube placement COMPARISON: September 09, 2016 TECHNIQUE: An AP portable view obtained at 1834 hours is submitted. FINDINGS: Bones/Soft Tissues: There are no acute bony findings. There is a nasogastric tube which is coiled in the mid esophagus. There is sternotomy and there is aortic stenting Cardiomediastinal: The cardiac silhouette is enlarged. Lungs: There are no infiltrates. Pleura: There are no pleural effusions. Other: None IMPRESSION: THE NASOGASTRIC TUBE IS COILED IN THE MIDESOPHAGUS. VASCULAR CONGESTIVE CHANGES ARE IMPROVED.
[2016-09-11] MEDS: Heparin DRIP 25,000 UNITS(*) 25,000 UNITS/500 ML BAG IV SCH (19:15)
[2016-09-11] MEDS ORDERED: Al Hydrox/Mg Hydrox/Simet LIQ* 30 ML UDC PO PRN (20:02)
[2016-09-11] MEDS: Pregabalin CAP(*) 50 MG PO SCH (20:26)
[2016-09-11 21:55] LABS: Hematocrit 32 % (35-47); Hemoglobin 10.8 g/dl (12.0-16.0)
[2016-09-11 21:57] LABS: Comments Flag Yes
[2016-09-12] MEDS: HYDROmorphone* 2 MG/ML 1 ML SYR IV SLOW PU PRN ×5 (00:07→20:00)
[2016-09-12] MEDS: Ondansetron INJ* 2 MG/ML VIAL IV PRN ×4 (05:30→20:14)
[2016-09-12] MEDS: Sevelamer TAB* 800 MG PO SCH ×3 (08:11→17:10)
[2016-09-12] MEDS: Tiotropium CAP.INH* CAP.INH/18 MCG INH SCH (08:18)
[2016-09-12 08:22] LABS: Hematocrit 28 % (35-47); Hemoglobin 9.7 g/dl (12.0-16.0); Mean Corpuscular HGB Conc 34 g/dl (31-36); Mean Corpuscular Hemoglobin 33 pg (27-31); Mean Corpuscular Volume 98 fL (80-97); Mean Platelet Volume 9 um3 (7.4-10.4); Red Blood Count 2.92 10^6/ul (4.0-5.4); Red Cell Distribution Width 17 % (10.5-15); White Blood Count 10.2 10^3/ul (3.5-10.8)
[2016-09-12] MEDS: Diltiazem CD CAP* 240 MG PO SCH (08:29)
[2016-09-12] MEDS: ALPRAZolam TAB* 0.25 MG PO PRN ×2 (08:29→20:14)
[2016-09-12] MEDS: Cinacalcet TAB* 30 MG PO SCH (08:30)
[2016-09-12] MEDS: Aspirin EC Low Dose* 81 MG TAB.EC PO SCH (08:30)
[2016-09-12] MEDS: Metoprolol Tartrate TAB* 25 MG PO SCH ×2 (08:31→20:01)
[2016-09-12] MEDS: amLODIPine TAB* 5 MG PO SCH (08:31)
[2016-09-12] MEDS ORDERED: Heparin VIAL(*) 5000 UNITS/ML VIAL (FIVE THOUSAND) IV SCH (10:00)
[2016-09-12] MEDS: Heparin DRIP 25,000 UNITS(*) 25,000 UNITS/500 ML BAG IVPB SCH (10:25)
--- NOTE | 2016-09-12 15:22 | PN ---
Subjective Date of Service: 09/12/16 Interval History: No flatus, no BMs Abdomen painful but better relief with dilaudid Has been NPO and no emesis in absence of food Attempted to place NG yesterday which coiled in esophagus. Developed vigorous bleeding after 2nd attempt Heparin discontinued overnight Objective Active Medications: Al Hydrox/Mg Hydrox/Simethicone (Maalox Plus*) 30 ml PO Q6H PRN PRN Reason: INDIGESTION Albuterol (Ventolin 2.5 Mg/3 Ml Neb.Tonya*) 2.5 mg INH Q6H PRN PRN Reason: SOB/WHEEZING Alprazolam (Xanax Tab*) 0.25 mg PO TID PRN PRN Reason: ANXIETY Last Admin: 09/12/16 08:29 Dose: 0.25 mg Amlodipine Besylate (Norvasc Tab*) 5 mg PO DAILY [facility] Last Admin: 09/12/16 08:31 Dose: 5 mg Aspirin (Aspirin Ec Low Dose*) 81 mg PO DAILY [facility] Last Admin: 09/12/16 08:30 Dose: 81 mg Atorvastatin Calcium (Lipitor*) 80 mg PO 1700 [facility] Last Admin: 09/11/16 16:10 Dose: 80 mg Cinacalcet (Sensipar Tab*) 30 mg PO DAILY [facility] Last Admin: 09/12/16 08:30 Dose: 30 mg Diltiazem HCl (Cardizem Cd Cap*) 240 mg PO DAILY [facility] Last Admin: 09/12/16 08:29 Dose: 240 mg Heparin Sodium (Porcine) (Heparin Vial(*)) 0 units IV .PER PROTOCOL [facility] PRN Reason: Protocol Last Admin: 09/12/16 10:25 Dose: 6,300 units Hydralazine HCl (Apresoline Iv*) 5 mg IV SLOW PU Q6H PRN PRN Reason: SYSTOLIC BP GREATER THAN: Last Admin: 09/11/16 23:59 Dose: 5 mg Hydromorphone HCl (Dilaudid Iv*) 2 mg IV SLOW PU Q2H PRN PRN Reason: PAIN Last Admin: 09/12/16 15:17 Dose: 2 mg Heparin Sodium/Dextrose (Heparin Drip 25,000 Units(*)) 25,000 units in 500 mls @ 0 mls/hr IVPB .PER RATE [facility]; Per Protocol PRN Reason: Protocol Last Admin: 09/12/16 10:25 Dose: 30 mls/hr Metoprolol Tartrate (Lopressor Tab*) 25 mg PO 0900,2100 [facility] Last Admin: 09/12/16 08:31 Dose: 25 mg Ondansetron HCl (Zofran Inj*) 4 mg IV Q4H PRN PRN Reason: NAUSEA Last Admin: 09/12/16 09:43 Dose: 4 mg Oxycodone/Acetaminophen (Percocet 5/325 Tab*) 1 tab PO Q6H PRN PRN Reason: PAIN - MODERATE Pharmacy Profile Note (Coumadin Daily Reminder*) 1 note FOLLOW UP 1700 [facility] Last Admin: 09/11/16 17:31 Dose: Not Given Pregabalin (Lyrica Cap(*)) 50 mg PO BEDTIME [facility] Last Admin: 09/11/16 20:26 Dose: 50 mg Sevelamer Carbonate (Renvela Tab*) 4,800 mg PO TID WITH MEALS [facility] Last Admin: 09/12/16 11:45 Dose: Not Given Tiotropium [place] (Spiriva Cap.Inh*) 1 cap INH DAILY [facility] Last Admin: 09/12/16 08:18 Dose: 1 cap Warfarin Sodium (Coumadin Tab(*)) 5 mg PO DAILY@1700 [facility] PRN Reason: Protocol Last Admin: 09/11/16 16:09 Dose: 5 mg Vital Signs 09/11/16 09/11/16 09/11/16 15:26 15:30 16:26 Temperature Pulse Rate Respiratory 18 18 Rate Blood Pressure 218/98 (mmHg) O2 Sat by Pulse Oximetry 09/11/16 09/11/16 09/11/16 16:30 17:37 20:00 Temperature Pulse Rate Respiratory 16 18 18 Rate Blood Pressure (mmHg) O2 Sat by Pulse Oximetry 09/11/16 09/11/16 09/11/16 20:26 20:27 22:26 Temperature Pulse Rate Respiratory 16 16 17 Rate Blood Pressure (mmHg) O2 Sat by Pulse Oximetry 09/11/16 09/12/16 09/12/16 23:34 00:07 01:07 Temperature 98.1 F Pulse Rate 95 Respiratory 16 20 18 Rate Blood Pressure 185/108 (mmHg) O2 Sat by Pulse 97 Oximetry 09/12/16 09/12/16 09/12/16 03:37 03:44 04:42 Temperature 97.1 F 98.5 F Pulse Rate 95 93 100 Respiratory 20 16 Rate Blood Pressure 178/98 174/104 (mmHg) O2 Sat by Pulse 89 83 99 Oximetry 09/12/16 09/12/16 09/12/16 05:30 06:30 07:30 Temperature 98.9 F Pulse Rate 74 Respiratory 20 20 18 Rate Blood Pressure 149/101 (mmHg) O2 Sat by Pulse 83 Oximetry 09/12/16 09/12/16 09/12/16 08:00 08:29 08:41 Temperature Pulse Rate Respiratory 16 18 18 Rate Blood Pressure (mmHg) O2 Sat by Pulse Oximetry 09/12/16 09/12/16 09/12/16 09:41 11:39 13:45 Temperature 99.0 F 98.3 F Pulse Rate 105 98 Respiratory 16 16 20 Rate Blood Pressure 143/84 154/95 (mmHg) O2 Sat by Pulse 100 100 Oximetry 09/12/16 15:17 Temperature Pulse Rate Respiratory 17 Rate Blood Pressure (mmHg) O2 Sat by Pulse Oximetry Oxygen Devices in Use Now: None Appearance: sleeping, wakes easily, NAD Eyes: No Scleral Icterus, PERRLA Ears/Nose/Mouth/Throat: Mucous Membranes Moist Neck: NL Appearance and Movements; NL JVP, Trachea Midline Respiratory: Symmetrical Chest Expansion and Respiratory Effort, Clear to Auscultation Cardiovascular: RRR Abdominal: - - soft, TTP throughout, decreased BS, no rebound/guarding Lymphatic: No Cervical Adenopathy Extremities: No Edema Skin: No Rash or Ulcers Neurological: Alert and Oriented x 3 Result Diagrams: 09/12/16 06:29 09/10/16 00:40 Additional Lab and Data: Lab Results 09/09/16 Range/Units 21:55 WBC 7.2 (3.5-10.8) 10^3/ul RBC 3.27 L (4.0-5.4) 10^6/ul Hgb 10.6 L (12.0-16.0) g/dl Hct 31 L (35-47) % MCV 96 (80-97) fL MCH 33 H (27-31) pg MCHC 34 (31-36) g/dl RDW 17 H (10.5-15) % Plt Count 203 (150-450) 10^3/ul MPV 8 (7.4-10.4) um3 Absolute Neuts (auto) Pending Absolute Lymphs (auto) Pending Absolute Monos (auto) Pending Absolute Eos (auto) Pending Absolute Basos (auto) Pending Absolute Nucleated RBC Pending Neutrophils % Pending Normal RBC Morphology Pending Microbiology and Other Data: Microbiology 09/10/16 04:00 Nasal Screen MRSA (PCR)(RON) - Final Nasal Mrsa Negative Assess/Plan/Problems-Billing Assessment: 45 yo F complicated past medical history including ESRD on HD, 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 T Continue heparin for known PE (2) End stage renal disease on dialysis SNOMED Code(s): 506568979 (3) Aortic valve replaced Comment: s/p recent balloon dilitation (4) Atrial fibrillation Comment: c/w cardizem and toprol c/w coumadin to 5mg add 2mg booster coumadin dose 09/11 heparin gtt (5) COPD (chronic obstructive pulmonary disease) Comment: Stable. Continue PRN nebulizers. (6) HTN (hypertension) Comment: improved with dialysis but still uncontrolled pain contributing add hydralazine PRN (7) DVT prophylaxis Comment: heparin coumadin
[2016-09-12] MEDS: Warfarin TAB(*) 5 MG PO SCH (17:08)
[2016-09-12] MEDS: Atorvastatin* 80 MG TAB PO SCH (17:08)
[2016-09-12] MEDS: Pregabalin CAP(*) 50 MG PO SCH (20:01)
[2016-09-12] MEDS ORDERED: PROCHLORPERAZINE INJ 5 MG/ML 2 ML VIAL IV PRN (22:12)
[2016-09-13 01:08] LABS: Hematocrit 26 % (35-47); Hemoglobin 8.7 g/dl (12.0-16.0); Mean Corpuscular HGB Conc 33 g/dl (31-36); Mean Corpuscular Hemoglobin 32 pg (27-31); Mean Corpuscular Volume 97 fL (80-97); Mean Platelet Volume 9 um3 (7.4-10.4); Red Blood Count 2.67 10^6/ul (4.0-5.4); Red Cell Distribution Width 17 % (10.5-15)
[2016-09-13] MEDS: HYDROmorphone* 2 MG/ML 1 ML SYR IV SLOW PU PRN ×5 (04:16→19:46)
[2016-09-13] MEDS: Sevelamer TAB* 800 MG PO SCH ×3 (07:39→16:33)
[2016-09-13] MEDS: amLODIPine TAB* 5 MG PO SCH (08:00)
[2016-09-13] MEDS: Diltiazem CD CAP* 240 MG PO SCH (08:00)
[2016-09-13] MEDS: Metoprolol Tartrate TAB* 25 MG PO SCH ×2 (08:00→20:23)
[2016-09-13] MEDS: Cinacalcet TAB* 30 MG PO SCH (08:00)
[2016-09-13] MEDS: Aspirin EC Low Dose* 81 MG TAB.EC PO SCH (08:00)
[2016-09-13] MEDS: Tiotropium CAP.INH* CAP.INH/18 MCG INH SCH (08:36)
[2016-09-13] MEDS ORDERED: Heparin DIALYSIS ONLY(*) 1,000 UNITS/ML VIAL DIALYSIS ONE (09:00)
[2016-09-13] MEDS ORDERED: Epoetin Alfa* 10,000 UNITS/ML VIAL IV ONE (09:00)
[2016-09-13 09:33] LABS: EGFR African American 5.5 (>60); EGFR Non-African American 4.3 (>60); One Over Creatinine 0.1 mg/dL (0.51-0.95); Potassium 4.3 mmol/L (3.5-5.0)
[2016-09-13] MEDS: ALPRAZolam TAB* 0.25 MG PO PRN (10:01)
--- NOTE | 2016-09-13 14:02 | RAD ---
INDICATION: Continued nausea and vomiting with eating, no flatus or bowel movements. COMPARISON: Correlation is made with a prior CT of the abdomen from September 10, 2016. TECHNIQUE: Supine and upright views of the abdomen were obtained. FINDINGS: The small bowel and colon appear nondistended. No free intraperitoneal air is seen. There is dense calcification within the abdominal aorta, no aneurysm is seen. The heart is enlarged. Postsurgical changes are noted most consistent with prior aortic valve surgery. IMPRESSION: NO EVIDENCE FOR OBSTRUCTION.
--- NOTE | 2016-09-13 15:57 | PN ---
Subjective Date of Service: 09/13/16 Interval History: No flatus, no BMs Was eating crackers this AM which her daughter brought in +nausea but no emesis Does not think she can drink contrast Using dilaudid frequently but did not use between 8pm and 4AM Objective Active Medications: Al Hydrox/Mg Hydrox/Simethicone (Maalox Plus*) 30 ml PO Q6H PRN PRN Reason: INDIGESTION Albuterol (Ventolin 2.5 Mg/3 Ml Neb.Tonya*) 2.5 mg INH Q6H PRN PRN Reason: SOB/WHEEZING Alprazolam (Xanax Tab*) 0.25 mg PO TID PRN PRN Reason: ANXIETY Last Admin: 09/13/16 10:01 Dose: 0.25 mg Amlodipine Besylate (Norvasc Tab*) 5 mg PO DAILY [facility] Last Admin: 09/13/16 08:00 Dose: 5 mg Aspirin (Aspirin Ec Low Dose*) 81 mg PO DAILY [facility] Last Admin: 09/13/16 08:00 Dose: 81 mg Atorvastatin Calcium (Lipitor*) 80 mg PO 1700 [facility] Last Admin: 09/12/16 17:08 Dose: 80 mg Cinacalcet (Sensipar Tab*) 30 mg PO DAILY [facility] Last Admin: 09/13/16 08:00 Dose: 30 mg Diltiazem HCl (Cardizem Cd Cap*) 240 mg PO DAILY [facility] Last Admin: 09/13/16 08:00 Dose: 240 mg Heparin Sodium (Porcine) (Heparin Vial(*)) 0 units IV .PER PROTOCOL [facility] PRN Reason: Protocol Last Admin: 09/12/16 10:25 Dose: 6,300 units Hydralazine HCl (Apresoline Iv*) 5 mg IV SLOW PU Q6H PRN PRN Reason: SYSTOLIC BP GREATER THAN: Last Admin: 09/11/16 23:59 Dose: 5 mg Hydromorphone HCl (Dilaudid Iv*) 2 mg IV SLOW PU Q2H PRN PRN Reason: PAIN Last Admin: 09/13/16 14:14 Dose: 2 mg Heparin Sodium/Dextrose (Heparin Drip 25,000 Units(*)) 25,000 units in 500 mls @ 0 mls/hr IVPB .PER RATE [facility]; Per Protocol PRN Reason: Protocol Last Admin: 09/12/16 10:25 Dose: 30 mls/hr Metoprolol Tartrate (Lopressor Tab*) 25 mg PO 0900,2100 [facility] Last Admin: 09/13/16 08:00 Dose: 25 mg Ondansetron HCl (Zofran Inj*) 4 mg IV Q4H PRN PRN Reason: NAUSEA Last Admin: 09/12/16 20:14 Dose: 4 mg Oxycodone/Acetaminophen (Percocet 5/325 Tab*) 1 tab PO Q6H PRN PRN Reason: PAIN - MODERATE Pharmacy Profile Note (Coumadin Daily Reminder*) 1 note FOLLOW UP 1700 [facility] Last Admin: 09/12/16 17:10 Dose: 1 note Pregabalin (Lyrica Cap(*)) 50 mg PO BEDTIME [facility] Last Admin: 09/12/16 20:01 Dose: 50 mg Prochlorperazine Edisylate (Compazine Inj*) 5 mg IV Q6H PRN PRN Reason: NAUSEA/VOMITING Sevelamer Carbonate (Renvela Tab*) 4,800 mg PO TID WITH MEALS [facility] Last Admin: 09/13/16 13:09 Dose: Not Given Tiotropium [place] (Spiriva Cap.Inh*) 1 cap INH DAILY [facility] Last Admin: 09/13/16 08:36 Dose: 1 cap Warfarin Sodium (Coumadin Tab(*)) 5 mg PO DAILY@1700 [facility] PRN Reason: Protocol Last Admin: 09/12/16 17:08 Dose: 5 mg Vital Signs 09/12/16 09/12/16 09/12/16 16:17 19:29 20:00 Temperature 98.6 F Pulse Rate 79 Respiratory 16 16 16 Rate Blood Pressure 144/97 (mmHg) O2 Sat by Pulse 91 Oximetry 09/12/16 09/12/16 09/12/16 20:01 20:14 21:00 Temperature Pulse Rate Respiratory 14 14 14 Rate Blood Pressure (mmHg) O2 Sat by Pulse Oximetry 09/12/16 09/12/16 09/12/16 22:01 22:14 23:31 Temperature 97.4 F Pulse Rate 73 Respiratory 18 16 16 Rate Blood Pressure 157/102 (mmHg) O2 Sat by Pulse 95 Oximetry 09/13/16 09/13/16 09/13/16 04:12 04:16 05:16 Temperature 98.8 F Pulse Rate 84 Respiratory 17 14 14 Rate Blood Pressure 153/99 (mmHg) O2 Sat by Pulse 100 Oximetry 09/13/16 09/13/16 09/13/16 07:41 07:56 10:00 Temperature 98.4 F Pulse Rate 104 Respiratory 20 14 18 Rate Blood Pressure 150/73 (mmHg) O2 Sat by Pulse 98 Oximetry 09/13/16 09/13/16 09/13/16 10:01 14:14 15:32 Temperature 98.4 F Pulse Rate 92 Respiratory 18 16 16 Rate Blood Pressure 161/98 (mmHg) O2 Sat by Pulse 96 Oximetry Oxygen Devices in Use Now: None Appearance: sitting in wheel chair, NAD Eyes: No Scleral Icterus, PERRLA Ears/Nose/Mouth/Throat: Clear Oropharnyx, Mucous Membranes Moist Neck: NL Appearance and Movements; NL JVP, Trachea Midline Respiratory: Symmetrical Chest Expansion and Respiratory Effort, Clear to Auscultation Cardiovascular: - - IRIR Abdominal: - - soft, TTP throughout but improved, soft, +bs Extremities: No Edema Neurological: Alert and Oriented x 3 Result Diagrams: 09/13/16 00:36 09/13/16 06:43 Additional Lab and Data: Lab Results 09/09/16 Range/Units 21:55 WBC 7.2 (3.5-10.8) 10^3/ul RBC 3.27 L (4.0-5.4) 10^6/ul Hgb 10.6 L (12.0-16.0) g/dl Hct 31 L (35-47) % MCV 96 (80-97) fL MCH 33 H (27-31) pg MCHC 34 (31-36) g/dl RDW 17 H (10.5-15) % Plt Count 203 (150-450) 10^3/ul MPV 8 (7.4-10.4) um3 Absolute Neuts (auto) Pending Absolute Lymphs (auto) Pending Absolute Monos (auto) Pending Absolute Eos (auto) Pending Absolute Basos (auto) Pending Absolute Nucleated RBC Pending Neutrophils % Pending Normal RBC Morphology Pending Microbiology and Other Data: Microbiology 09/10/16 04:00 Nasal Screen MRSA (PCR)(RON) - Final Nasal Mrsa Negative Assess/Plan/Problems-Billing Assessment: 45 yo F complicated past medical history including ESRD on HD, 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 Repeat plain films 09/13 wnl Her presentation at this point is most c/w SBO and her pain and N/V are improving with NPO status Maintain NPO until flatus or BM Can consider repeat CT A/P and attempt PO contrast which she could not tolerate on last attempt (2) End stage renal disease on dialysis SNOMED Code(s): 252201669 (3) Aortic valve replaced Comment: s/p recent balloon dilitation (4) Atrial fibrillation Comment: c/w cardizem and toprol c/w coumadin to 5mg add 2mg booster coumadin dose 09/11 additional 2mg boost 09/13 heparin gtt (5) COPD (chronic obstructive pulmonary disease) Comment: Stable. Continue PRN nebulizers. (6) HTN (hypertension) Comment: improved with dialysis pain contributing add hydralazine PRN (7) DVT prophylaxis Comment: heparin coumadin
[2016-09-13] MEDS: Atorvastatin* 80 MG TAB PO SCH (16:33)
[2016-09-13] MEDS: Warfarin TAB(*) 5 MG PO SCH (16:33)
[2016-09-13] MEDS ORDERED: Magnesium Hydroxide LIQ* 30 ML UDC PO ONE (16:45)
[2016-09-13] MEDS ORDERED: Warfarin TAB(*) 2 MG PO ONE (17:00)
[2016-09-13] MEDS: Pregabalin CAP(*) 50 MG PO SCH (20:22)
[2016-09-14] MEDS: HYDROmorphone* 2 MG/ML 1 ML SYR IV SLOW PU PRN ×6 (01:03→20:01)
[2016-09-14 02:42] LABS: Hematocrit 27 % (35-47); Hemoglobin 9.1 g/dl (12.0-16.0); Mean Corpuscular HGB Conc 34 g/dl (31-36); Mean Corpuscular Hemoglobin 32 pg (27-31); Mean Corpuscular Volume 96 fL (80-97); Mean Platelet Volume 8 um3 (7.4-10.4); Red Blood Count 2.82 10^6/ul (4.0-5.4); Red Cell Distribution Width 17 % (10.5-15)
[2016-09-14] MEDS: ALPRAZolam TAB* 0.25 MG PO PRN (04:18)
[2016-09-14] MEDS: Tiotropium CAP.INH* CAP.INH/18 MCG INH SCH (08:12)
[2016-09-14] MEDS: Sevelamer TAB* 800 MG PO SCH ×3 (08:45→17:41)
[2016-09-14] MEDS: Diltiazem CD CAP* 240 MG PO SCH (08:46)
[2016-09-14] MEDS: Aspirin EC Low Dose* 81 MG TAB.EC PO SCH (08:46)
[2016-09-14] MEDS: Metoprolol Tartrate TAB* 25 MG PO SCH ×2 (08:46→22:53)
[2016-09-14] MEDS: Ondansetron INJ* 2 MG/ML VIAL IV PRN ×3 (08:47→17:49)
[2016-09-14] MEDS: amLODIPine TAB* 5 MG PO SCH (08:47)
[2016-09-14] MEDS: hydrALAZINE IV* 20 MG/ML VIAL IV SLOW PU PRN (08:47)
[2016-09-14] MEDS: Cinacalcet TAB* 30 MG PO SCH (10:22)
--- NOTE | 2016-09-14 11:05 | PN ---
Subjective Date of Service: 09/14/16 Interval History: Ms. Joseph continues to endorse persistent abdominal pain and denies any flatus or BM. She reports nausea but is still asking for food. She would like to try PO contrast in order to check a CT abd/pelvis due to persistent pain. She states that she burps a lot and has been lying in bed in order to prevent this. Patient encouraged to ambulate more frequently in order to promote bowel motility. Family History: Unchanged from Admission Social History: Unchanged from Admission Past Medical History: Unchanged from Admission Objective Active Medications: Al Hydrox/Mg Hydrox/Simethicone (Maalox Plus*) 30 ml PO Q6H PRN PRN Reason: INDIGESTION Last Admin: 09/14/16 08:46 Dose: 30 ml Albuterol (Ventolin 2.5 Mg/3 Ml Neb.Tonya*) 2.5 mg INH Q6H PRN PRN Reason: SOB/WHEEZING Alprazolam (Xanax Tab*) 0.25 mg PO TID PRN PRN Reason: ANXIETY Last Admin: 09/14/16 04:18 Dose: 0.25 mg Amlodipine Besylate (Norvasc Tab*) 5 mg PO DAILY [facility] Last Admin: 09/14/16 08:47 Dose: 5 mg Aspirin (Aspirin Ec Low Dose*) 81 mg PO DAILY [facility] Last Admin: 09/14/16 08:46 Dose: 81 mg Atorvastatin Calcium (Lipitor*) 80 mg PO 1700 [facility] Last Admin: 09/13/16 16:33 Dose: 80 mg Cinacalcet (Sensipar Tab*) 30 mg PO DAILY [facility] Last Admin: 09/14/16 10:22 Dose: 30 mg Diltiazem HCl (Cardizem Cd Cap*) 240 mg PO DAILY [facility] Last Admin: 09/14/16 08:46 Dose: 240 mg Heparin Sodium (Porcine) (Heparin Vial(*)) 0 units IV .PER PROTOCOL [facility] PRN Reason: Protocol Last Admin: 09/12/16 10:25 Dose: 6,300 units Hydralazine HCl (Apresoline Iv*) 5 mg IV SLOW PU Q6H PRN PRN Reason: SYSTOLIC BP GREATER THAN: Last Admin: 09/14/16 08:47 Dose: 5 mg Hydromorphone HCl (Dilaudid Iv*) 2 mg IV SLOW PU Q2H PRN PRN Reason: PAIN Last Admin: 09/14/16 09:00 Dose: 2 mg Heparin Sodium/Dextrose (Heparin Drip 25,000 Units(*)) 25,000 units in 500 mls @ 0 mls/hr IVPB .PER RATE GHASSAN; Per Protocol PRN Reason: Protocol Last Admin: 09/12/16 10:25 Dose: 30 mls/hr Metoprolol Tartrate (Lopressor Tab*) 25 mg PO 0900,2100 [facility] Last Admin: 09/14/16 08:46 Dose: 25 mg Ondansetron HCl (Zofran Inj*) 4 mg IV Q4H PRN PRN Reason: NAUSEA Last Admin: 09/14/16 08:47 Dose: 4 mg Oxycodone/Acetaminophen (Percocet 5/325 Tab*) 1 tab PO Q6H PRN PRN Reason: PAIN - MODERATE Pharmacy Profile Note (Coumadin Daily Reminder*) 1 note FOLLOW UP 1700 [facility] Last Admin: 09/13/16 16:33 Dose: 1 note Pregabalin (Lyrica Cap(*)) 50 mg PO BEDTIME [facility] Last Admin: 09/13/16 20:22 Dose: 50 mg Prochlorperazine Edisylate (Compazine Inj*) 5 mg IV Q6H PRN PRN Reason: NAUSEA/VOMITING Sevelamer Carbonate (Renvela Tab*) 4,800 mg PO TID WITH MEALS [facility] Last Admin: 09/14/16 08:45 Dose: 4,800 mg Tiotropium [place] (Spiriva Cap.Inh*) 1 cap INH DAILY [facility] Last Admin: 09/14/16 08:12 Dose: 1 cap Warfarin Sodium (Coumadin Tab(*)) 5 mg PO DAILY@1700 [facility] PRN Reason: Protocol Last Admin: 09/13/16 16:33 Dose: 5 mg Vital Signs 09/13/16 09/13/16 09/13/16 14:14 15:14 15:32 Temperature 98.4 F Pulse Rate 92 Respiratory 16 18 16 Rate Blood Pressure 161/98 (mmHg) O2 Sat by Pulse 96 Oximetry 09/13/16 09/13/16 09/13/16 17:13 18:13 19:45 Temperature 98.2 F Pulse Rate 84 Respiratory 16 16 19 Rate Blood Pressure 146/100 (mmHg) O2 Sat by Pulse 94 Oximetry 09/13/16 09/13/16 09/13/16 19:46 20:00 20:22 Temperature Pulse Rate Respiratory 14 14 14 Rate Blood Pressure (mmHg) O2 Sat by Pulse Oximetry 09/13/16 09/13/16 09/14/16 20:46 22:22 00:46 Temperature 99.0 F Pulse Rate 84 Respiratory 14 16 20 Rate Blood Pressure 158/104 (mmHg) O2 Sat by Pulse 90 Oximetry 09/14/16 09/14/16 09/14/16 01:03 02:03 04:07 Temperature Pulse Rate Respiratory 14 16 16 Rate Blood Pressure (mmHg) O2 Sat by Pulse Oximetry 09/14/16 09/14/16 09/14/16 04:18 04:56 05:07 Temperature 97.3 F Pulse Rate 91 Respiratory 16 20 16 Rate Blood Pressure 157/109 (mmHg) O2 Sat by Pulse 97 Oximetry 09/14/16 09/14/16 09/14/16 06:18 07:59 08:00 Temperature 99.1 F Pulse Rate 91 Respiratory 16 18 16 Rate Blood Pressure 194/124 (mmHg) O2 Sat by Pulse 99 Oximetry 09/14/16 09/14/16 09:00 10:00 Temperature Pulse Rate Respiratory 16 16 Rate Blood Pressure (mmHg) O2 Sat by Pulse Oximetry Oxygen Devices in Use Now: None Appearance: Pleasant female patient, lying in bed, in NAD Eyes: No Scleral Icterus, PERRLA Ears/Nose/Mouth/Throat: Clear Oropharnyx, Mucous Membranes Moist Neck: NL Appearance and Movements; NL JVP Respiratory: Symmetrical Chest Expansion and Respiratory Effort, Clear to Auscultation Cardiovascular: - - loud systolic murmur, irregularly irregular rate/rhythm Abdominal: - - BS present, abdomen soft but diffusely tender with palpation Extremities: No Edema Neurological: Alert and Oriented x 3 Lines/Tubes/Other Access: Clean, Dry and Intact Peripheral IV Nutrition: Taking PO's Result Diagrams: 09/14/16 02:24 09/13/16 06:43 Additional Lab and Data: Lab Results 09/09/16 Range/Units 21:55 WBC 7.2 (3.5-10.8) 10^3/ul RBC 3.27 L (4.0-5.4) 10^6/ul Hgb 10.6 L (12.0-16.0) g/dl Hct 31 L (35-47) % MCV 96 (80-97) fL MCH 33 H (27-31) pg MCHC 34 (31-36) g/dl RDW 17 H (10.5-15) % Plt Count 203 (150-450) 10^3/ul MPV 8 (7.4-10.4) um3 Absolute Neuts (auto) Pending Absolute Lymphs (auto) Pending Absolute Monos (auto) Pending Absolute Eos (auto) Pending Absolute Basos (auto) Pending Absolute Nucleated RBC Pending Neutrophils % Pending Normal RBC Morphology Pending Microbiology and Other Data: Microbiology 09/10/16 04:00 Nasal Screen MRSA (PCR)(RON) - Final Nasal Mrsa Negative Assess/Plan/Problems-Billing Assessment: 45 yo F complicated past medical history including ESRD on HD, 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 - Patient Problems (1) Pain Code(s): R52 - PAIN, UNSPECIFIED Comment: No obstruction or dilated loops of bowel seen on repeat CT today. Stomach is distended and colon is full of stool. She continues to report intractable abdominal pain and has frequent emesis of clear liquids. Soap suds enema and PO bowel meds in order to facilitate BM. Continue to encourage ambulation. (2) End stage renal disease on dialysis Code(s): N18.6 - END STAGE RENAL DISEASE; Z99.2 - DEPENDENCE ON RENAL DIALYSIS Comment: Continue dialysis per nephrology team. Last dialysis 09/13 (3) Aortic valve replaced Code(s): Z95.2 - PRESENCE OF PROSTHETIC HEART VALVE Comment: s/p recent balloon dilitation (4) Atrial fibrillation Code(s): I48.91 - UNSPECIFIED ATRIAL FIBRILLATION Comment: Continue Cardizem and Toprol Continue coumadin to 5mg Add 2mg booster coumadin dose 09/11 Additional 2mg boost 09/13 Continue heparin gtt (5) COPD (chronic obstructive pulmonary disease) Current Visit: Yes Status: Acute Code(s): J44.9 - CHRONIC OBSTRUCTIVE PULMONARY DISEASE, UNSPECIFIED SNOMED Code(s): 30707583 Comment: Stable. Continue PRN nebulizers. (6) HTN (hypertension) Code(s): I10 - ESSENTIAL (PRIMARY) HYPERTENSION Comment: Improved yesterday with dialysis Elevated again today, pain likely contributing Continue home regimen, prn hydralazine. Add prn labetalol. (7) DVT prophylaxis Code(s): HGF4725 - Comment: Heparin gtt Coumadin Status and Disposition: Inpatient admission. LOS >2 days due to intractable pain and inability to take adequate PO.
[2016-09-14] MEDS ORDERED: Labetalol IV* 5 MG/ML 20 ML VIAL IV PUSH PRN (12:10)
--- NOTE | 2016-09-14 14:39 | RAD ---
Indication: Persistent abdominal pain, small bowel obstruction CT of the abdomen and pelvis was performed without oral or IV contrast administration. Comparison is made with previous exam dated February 09, 2015. Lung bases demonstrate no pleural fluid. Cardiomegaly without evidence of pericardial effusion is noted. The liver is normal in size. No focal lesions or intrahepatic ductal dilatation is noted. The spleen is normal in size. The gallbladder is partially contracted without evidence of gallstones. Common duct is not dilated. The kidneys appear atrophic. No adrenal masses are noted. The pancreas demonstrates no mass or pancreatic ductal dilatation. Distended stomach is noted however no distended loops of small bowel are noted. The colon is filled with stool. Atherosclerotic aorta is noted. Aneurysmal dilatation of the left common iliac artery is noted. CT of the pelvis demonstrates no retroperitoneal or pelvic lymphadenopathy. No hernias are identified. No free fluid is noted. IMPRESSION: There is a distended stomach. No dilated loops of small bowel are noted. The colon is filled with stool. Atherosclerotic aorta with a aneurysmal dilatation of the left common iliac artery. No free fluid is identified.
[2016-09-14] MEDS ORDERED: Bisacodyl EC TAB* 5 MG PO PRN (15:09)
[2016-09-14] MEDS ORDERED: LACTULOSE* 30 ML UDC PO ONE (15:09)
[2016-09-14] MEDS: Heparin DRIP 25,000 UNITS(*) 25,000 UNITS/500 ML BAG IVPB SCH (15:36)
[2016-09-14] MEDS: Atorvastatin* 80 MG TAB PO SCH (17:41)
[2016-09-14] MEDS: Polyethylene Glycol 3350* 17 GM PACKET PO SCH (17:41)
[2016-09-14] MEDS: Warfarin TAB(*) 5 MG PO SCH (17:41)
[2016-09-14] MEDS ORDERED: Senna TAB PO PRN (21:00)
[2016-09-14] MEDS: Pregabalin CAP(*) 50 MG PO SCH (22:53)
[2016-09-15] MEDS: HYDROmorphone* 2 MG/ML 1 ML SYR IV SLOW PU PRN ×5 (00:33→21:22)
[2016-09-15 06:53] LABS: BUN/Creatinine Ratio 3.1 (8-20); Calcium 8.9 mg/dL (8.6-10.3); EGFR African American 6.7 (>60); EGFR Non-African American 5.2 (>60); Potassium 3.6 mmol/L (3.5-5.0)
[2016-09-15] MEDS: Aspirin EC Low Dose* 81 MG TAB.EC PO SCH (07:36)
[2016-09-15] MEDS: amLODIPine TAB* 5 MG PO SCH (07:36)
[2016-09-15] MEDS: Cinacalcet TAB* 30 MG PO SCH (07:36)
[2016-09-15] MEDS: Metoprolol Tartrate TAB* 25 MG PO SCH ×2 (07:36→19:57)
[2016-09-15] MEDS: Sevelamer TAB* 800 MG PO SCH ×3 (07:36→16:12)
[2016-09-15] MEDS: Diltiazem CD CAP* 240 MG PO SCH (07:36)
[2016-09-15] MEDS: Polyethylene Glycol 3350* 17 GM PACKET PO SCH ×3 (07:37→16:18)
[2016-09-15] MEDS: Tiotropium CAP.INH* CAP.INH/18 MCG INH SCH (07:55)
[2016-09-15] MEDS ORDERED: Polyethylene Glycol 3350* 17 GM PACKET PO SCH (09:00)
--- NOTE | 2016-09-15 11:13 | PN ---
Subjective Date of Service: 09/15/16 Interval History: Patient still reports abdominal pain and nausea. She has been having emesis with small amounts of clear liquids. She does report flatus. Denies CP, SOB. Family History: Unchanged from Admission Social History: Unchanged from Admission Past Medical History: Unchanged from Admission Objective Active Medications: Al Hydrox/Mg Hydrox/Simethicone (Maalox Plus*) 30 ml PO Q6H PRN PRN Reason: INDIGESTION Last Admin: 09/14/16 08:46 Dose: 30 ml Albuterol (Ventolin 2.5 Mg/3 Ml Neb.Tonya*) 2.5 mg INH Q6H PRN PRN Reason: SOB/WHEEZING Alprazolam (Xanax Tab*) 0.25 mg PO TID PRN PRN Reason: ANXIETY Last Admin: 09/14/16 04:18 Dose: 0.25 mg Amlodipine Besylate (Norvasc Tab*) 5 mg PO DAILY [facility] Last Admin: 09/15/16 07:36 Dose: 5 mg Aspirin (Aspirin Ec Low Dose*) 81 mg PO DAILY [facility] Last Admin: 09/15/16 07:36 Dose: 81 mg Atorvastatin Calcium (Lipitor*) 80 mg PO 1700 [facility] Last Admin: 09/14/16 17:41 Dose: 80 mg Bisacodyl (Dulcolax Ec Tab*) 5 mg PO DAILY PRN PRN Reason: CONSTIPATION Cinacalcet (Sensipar Tab*) 30 mg PO DAILY [facility] Last Admin: 09/15/16 07:36 Dose: 30 mg Diltiazem HCl (Cardizem Cd Cap*) 240 mg PO DAILY [facility] Last Admin: 09/15/16 07:36 Dose: 240 mg Heparin Sodium (Porcine) (Heparin Vial(*)) 0 units IV .PER PROTOCOL [facility] PRN Reason: Protocol Last Admin: 09/12/16 10:25 Dose: 6,300 units Hydralazine HCl (Apresoline Iv*) 5 mg IV SLOW PU Q6H PRN PRN Reason: SYSTOLIC BP GREATER THAN: Last Admin: 09/14/16 08:47 Dose: 5 mg Hydromorphone HCl (Dilaudid Iv*) 2 mg IV SLOW PU Q4H PRN PRN Reason: PAIN Last Admin: 09/15/16 04:37 Dose: 2 mg Heparin Sodium/Dextrose (Heparin Drip 25,000 Units(*)) 25,000 units in 500 mls @ 0 mls/hr IVPB .PER RATE GHASSAN; Per Protocol PRN Reason: Protocol Last Admin: 09/14/16 15:36 Dose: 19 mls/hr Labetalol HCl (Trandate Iv*) 10 mg IV PUSH Q6H PRN PRN Reason: BLOOD PRESSURE Last Admin: 09/14/16 14:59 Dose: 10 mg Metoprolol Tartrate (Lopressor Tab*) 25 mg PO 0900,2100 [facility] Last Admin: 09/15/16 07:36 Dose: 25 mg Ondansetron HCl (Zofran Inj*) 4 mg IV Q4H PRN PRN Reason: NAUSEA Last Admin: 09/14/16 17:49 Dose: 4 mg Oxycodone/Acetaminophen (Percocet 5/325 Tab*) 1 tab PO Q6H PRN PRN Reason: PAIN - MODERATE Pharmacy Profile Note (Coumadin Daily Reminder*) 1 note FOLLOW UP 1700 [facility] Last Admin: 09/14/16 17:42 Dose: 1 note Polyethylene Glycol/Electrolytes (Miralax*) 17 gm PO DAILY [facility] Last Admin: 09/15/16 07:37 Dose: 17 gm Polyethylene Glycol/Electrolytes (Miralax) 238 gm PO ONCE ONE Stop: 09/15/16 11:13 Pregabalin (Lyrica Cap(*)) 50 mg PO BEDTIME [facility] Last Admin: 09/14/16 22:53 Dose: 50 mg Prochlorperazine Edisylate (Compazine Inj*) 5 mg IV Q6H PRN PRN Reason: NAUSEA/VOMITING Last Admin: 09/14/16 20:01 Dose: 5 mg Senna (Senokot Tab*) 2 tab PO BEDTIME PRN PRN Reason: CONSTIPATION Sevelamer Carbonate (Renvela Tab*) 4,800 mg PO TID WITH MEALS [facility] Last Admin: 09/15/16 07:36 Dose: 4,800 mg Tiotropium [place] (Spiriva Cap.Inh*) 1 cap INH DAILY [facility] Last Admin: 09/15/16 07:55 Dose: 1 cap Warfarin Sodium (Coumadin Tab(*)) 5 mg PO DAILY@1700 [facility] PRN Reason: Protocol Last Admin: 09/14/16 17:41 Dose: 5 mg Vital Signs 09/14/16 09/14/16 09/14/16 12:07 12:16 13:16 Temperature 98.4 F Pulse Rate 105 Respiratory 16 18 16 Rate Blood Pressure 192/106 (mmHg) O2 Sat by Pulse 100 Oximetry 09/14/16 09/14/16 09/14/16 14:58 15:30 15:58 Temperature 97.6 F Pulse Rate 85 Respiratory 16 18 16 Rate Blood Pressure 180/119 (mmHg) O2 Sat by Pulse 93 Oximetry 09/14/16 09/14/16 09/14/16 19:37 20:00 20:01 Temperature 98.2 F Pulse Rate 87 Respiratory 18 20 14 Rate Blood Pressure 170/95 (mmHg) O2 Sat by Pulse 99 Oximetry 09/14/16 09/14/16 09/15/16 21:01 22:53 00:17 Temperature 98.5 F Pulse Rate 92 Respiratory 20 20 20 Rate Blood Pressure 170/107 (mmHg) O2 Sat by Pulse 99 Oximetry 09/15/16 09/15/16 09/15/16 00:33 00:53 01:33 Temperature Pulse Rate Respiratory 16 16 16 Rate Blood Pressure (mmHg) O2 Sat by Pulse Oximetry 09/15/16 09/15/16 09/15/16 04:07 04:37 05:37 Temperature 98.7 F Pulse Rate 83 Respiratory 20 14 14 Rate Blood Pressure 176/100 (mmHg) O2 Sat by Pulse 92 Oximetry 09/15/16 09/15/16 06:47 07:44 Temperature 97.6 F Pulse Rate 85 Respiratory 18 18 Rate Blood Pressure 171/105 (mmHg) O2 Sat by Pulse 90 Oximetry Oxygen Devices in Use Now: None Appearance: Female patient, lying in bed, in NAD Eyes: PERRLA Ears/Nose/Mouth/Throat: Mucous Membranes Moist Neck: NL Appearance and Movements; NL JVP Respiratory: Symmetrical Chest Expansion and Respiratory Effort, Clear to Auscultation Cardiovascular: - - irregularly irregular HR/rhythm, systolic murmur Abdominal: - - soft abdomen, BS present, diffuse tenderness Extremities: No Edema Skin: No Rash or Ulcers Neurological: Alert and Oriented x 3, NL Muscle Strength and Tone Lines/Tubes/Other Access: Clean, Dry and Intact Peripheral IV Result Diagrams: 09/14/16 02:24 09/15/16 06:02 Additional Lab and Data: Lab Results 09/09/16 Range/Units 21:55 WBC 7.2 (3.5-10.8) 10^3/ul RBC 3.27 L (4.0-5.4) 10^6/ul Hgb 10.6 L (12.0-16.0) g/dl Hct 31 L (35-47) % MCV 96 (80-97) fL MCH 33 H (27-31) pg MCHC 34 (31-36) g/dl RDW 17 H (10.5-15) % Plt Count 203 (150-450) 10^3/ul MPV 8 (7.4-10.4) um3 Absolute Neuts (auto) Pending Absolute Lymphs (auto) Pending Absolute Monos (auto) Pending Absolute Eos (auto) Pending Absolute Basos (auto) Pending Absolute Nucleated RBC Pending Neutrophils % Pending Normal RBC Morphology Pending Microbiology and Other Data: Microbiology 09/10/16 04:00 Nasal Screen MRSA (PCR)(RON) - Final Nasal Mrsa Negative Assess/Plan/Problems-Billing Assessment: 45 yo F complicated past medical history including ESRD on HD, 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 - Patient Problems (1) Pain Code(s): R52 - PAIN, UNSPECIFIED Comment: No obstruction or dilated loops of bowel seen on repeat CT; stomach is distended and colon is full of stool. She continues to report intractable abdominal pain and has frequent emesis of clear liquids. Continue enema and PO bowel meds in order to facilitate BM. Continue to encourage ambulation. May consider methylnaltrexone if constipation persists (2) End stage renal disease on dialysis Code(s): N18.6 - END STAGE RENAL DISEASE; Z99.2 - DEPENDENCE ON RENAL DIALYSIS Comment: Continue dialysis per nephrology team. Last dialysis 09/13 (3) Aortic valve replaced Code(s): Z95.2 - PRESENCE OF PROSTHETIC HEART VALVE Comment: s/p recent balloon dilitation (4) Atrial fibrillation Code(s): I48.91 - UNSPECIFIED ATRIAL FIBRILLATION Comment: Continue Cardizem and Toprol Continue coumadin to 5mg Add 2mg booster coumadin dose 09/11 Additional 2mg boost 09/13 Continue heparin gtt (5) COPD (chronic obstructive pulmonary disease) Current Visit: Yes Status: Acute Code(s): J44.9 - CHRONIC OBSTRUCTIVE PULMONARY DISEASE, UNSPECIFIED SNOMED Code(s): 19998965 Comment: Stable. Continue PRN nebulizers. (6) HTN (hypertension) Code(s): I10 - ESSENTIAL (PRIMARY) HYPERTENSION Comment: Improved from yesterday, will likely improve after dialysis Pain likely contributing Continue home regimen, prn hydralazine and labetalol. (7) DVT prophylaxis Code(s): [id number] - Comment: Heparin gtt Coumadin Status and Disposition: Inpatient admission. LOS >2 days due to intractable pain and inability to take adequate PO.
[2016-09-15] MEDS: Atorvastatin* 80 MG TAB PO SCH (16:12)
[2016-09-15] MEDS: Warfarin TAB(*) 5 MG PO SCH (16:12)
[2016-09-15] MEDS: hydrALAZINE IV* 20 MG/ML VIAL IV SLOW PU PRN (16:13)
[2016-09-15] MEDS ORDERED: Bisacodyl SUPP* 10 MG SUPP PR ONE (17:12)
[2016-09-15] MEDS: Pregabalin CAP(*) 50 MG PO SCH (19:58)
[2016-09-15] MEDS: Ondansetron INJ* 2 MG/ML VIAL IV PRN (20:10)
[2016-09-16] MEDS ORDERED: Bisacodyl SUPP* 10 MG SUPP PR ONE (00:51)
[2016-09-16] MEDS: HYDROmorphone* 2 MG/ML 1 ML SYR IV SLOW PU PRN ×3 (02:38→13:19)
[2016-09-16] MEDS: Ondansetron INJ* 2 MG/ML VIAL IV PRN ×2 (08:04→13:19)
[2016-09-16 08:13] LABS: Hematocrit 24 % (35-47); Hemoglobin 8.2 g/dl (12.0-16.0); Mean Corpuscular HGB Conc 34 g/dl (31-36); Mean Corpuscular Hemoglobin 33 pg (27-31); Mean Corpuscular Volume 96 fL (80-97); Mean Platelet Volume 9 um3 (7.4-10.4); Red Blood Count 2.52 10^6/ul (4.0-5.4); Red Cell Distribution Width 17 % (10.5-15); White Blood Count 8.2 10^3/ul (3.5-10.8)
[2016-09-16 08:29] LABS: BUN/Creatinine Ratio 3.4 (8-20); Calcium 8.8 mg/dL (8.6-10.3); EGFR African American 5.4 (>60); EGFR Non-African American 4.2 (>60); Potassium 4.2 mmol/L (3.5-5.0)
[2016-09-16] MEDS: Sevelamer TAB* 800 MG PO SCH ×2 (08:39→13:38)
[2016-09-16] MEDS: ALPRAZolam TAB* 0.25 MG PO PRN (08:39)
[2016-09-16] MEDS ORDERED: Polyethylene Glycol 3350* 17 GM PACKET PO SCH (09:00)
[2016-09-16] MEDS: Tiotropium CAP.INH* CAP.INH/18 MCG INH SCH (10:13)
[2016-09-16] MEDS ORDERED: Epoetin Alfa* 10,000 UNITS/ML VIAL IV ONE (13:00)
[2016-09-16] MEDS: amLODIPine TAB* 5 MG PO SCH (13:18)
[2016-09-16] MEDS: Cinacalcet TAB* 30 MG PO SCH (13:18)
[2016-09-16] MEDS: Metoprolol Tartrate TAB* 25 MG PO SCH (13:18)
[2016-09-16] MEDS: Aspirin EC Low Dose* 81 MG TAB.EC PO SCH (13:18)
[2016-09-16] MEDS: Diltiazem CD CAP* 240 MG PO SCH (13:18)
[2016-09-16 17:26] VITALS: BP 190/135
--- NOTE | 2016-09-17 03:56 | DS ---
DISCHARGE SUMMARY: DATE OF ADMISSION: 09/09/16 DATE OF DISCHARGE: 09/16/16 PRIMARY CARE PROVIDER: Dr. Larose. DISCHARGING PROVIDER: JONATHON Padilla SUPERVISING PHYSICIAN: Sneha Cartagena MD * (DICTATED BY JONATHON PADILLA) PRIMARY DISCHARGE DIAGNOSES: 1. Suspected gastroparesis with nausea, vomiting, and epigastric abdominal pain. 2. Constipation. SECONDARY DISCHARGE DIAGNOSES: 1. End-stage renal disease, on hemodialysis, Friday, , Friday. 2. History of aortic valve replacement. 3. History of pulmonary embolus complicated by pulmonary hemorrhage, currently anticoagulated on Coumadin, now therapeutic. 4. Atrial fibrillation, rate controlled. 5. Chronic obstructive pulmonary disease. 6. Hypertension. DISCHARGE MEDICATIONS: Include: 1. Xanax 0.25 mg p.o. t.i.d. as needed for anxiety. 2. Ventolin 2.5 mg inhaled q.6 hours as needed for shortness of breath. 3. Amlodipine 5 mg p.o. daily. 4. Aspirin 81 mg p.o. daily. 5. Lipitor 80 mg p.o. daily. 6. Sensipar 30 mg p.o. daily. 7. Diltiazem 240 mg p.o. daily. 8. Reglan 5 mg p.o. before meals and bedtime. 9. Metoprolol tartrate 12.5 mg p.o. twice daily. 10. Lyrica 50 mg p.o. at bedtime. 11. Renvela 4800 mg p.o. t.i.d. 12. Spiriva 1 capsule inhaled daily. 13. Coumadin 5 mg p.o. daily. 14. Oxycodone/acetaminophen 5/325 one tablet p.o. q.6 hours as needed for pain. MEDICATION CHANGES: Start oxycodone. HOSPITAL IMAGIN. Chest x-ray, 09/09/16, demonstrated [id number] vascular congestive findings. 2. CT of the abdomen at 09/10/16 shows no acute findings. 3. X-ray of the knee, 09/10/16, shows large right joint effusion and advanced degenerative changes. 4. Chest x-ray, 09/11/16, shows NG tube coiled in the mid esophagus and vascular congestive changes have improved. 5. X-ray of the abdomen shows no evidence of obstruction. 6. CT of the abdomen and pelvis, 09/14/16, demonstrates a distended stomach. No dilated loops of small bowel. There is colon filled with stool. HOSPITAL COURSE: This is a 45-year-old female with an extensive medical history who presented with her original complaint being chest pain to the emergency department. Upon reevaluation, her pain seemed to be more consistent with abdominal pain and the patient was complaining of associated nausea and vomiting primarily after eating. Initial evaluation including CT of the abdomen demonstrated no acute pathology, but the patient was quite tender and significantly symptomatic in the epigastric area. Attempted NG tube placement, this was unsuccessful and the patient did not tolerate. Repeat imaging demonstrated a large amount of stool within the colon and the patient received multiple laxatives, which eventually resulted in a large bowel movement and some improvement in her acute complaints. The patient reported that she has had a long history of abdominal discomfort, often feels bloated and easily feels full, mostly snacks throughout the day. She does occasionally experience some nausea after eating and vomits with meals and this is apart from her acute hospitalization. The patient did have rather large and distended stomach on CT scan. Even her initial CT demonstrated rather full stomach drawing into question whether gastroparesis may be contributing to her symptoms. Recommend empirically treating with Reglan and seeing if this helps symptomatically and if so, can confirm the diagnosis with nuclear imaging in the future. Of note, the patient was hyponatremic with a sodium of 122 on the day of discharge. The patient was asymptomatic with that and suspect it is likely secondary to hypervolemia as labs were drawn prior to dialysis and anticipate that this improved after being dialyzed. INR was noted to be grossly subtherapeutic at the time of admission with her INR 0.93. Her Coumadin dose was increased and she was treated with heparin drip throughout her hospital stay as bridge therapy. INR at the time of discharge is 2.36. The patient requires a repeat INR Friday or of this upcoming week, the or , and follow up with primary care regarding results. DISPOSITION: The patient is being discharged to home. Changes in medication include starting Reglan before meals and bedtime. The patient also is in the midst of switching primary care providers and is out of her oxycodone. Confirmed this is appropriate fill time based on I-STOP and provided her with a 2-week supply until she is able to see her new primary care provider. Recommend close followup with primary care. Consider outpatient nuclear imaging to confirm the diagnosis of gastroparesis if she does receive some symptomatic relief from the use of Reglan empirically. JONATHON PADILLA CC: Dr. Larose* [id number]/[facility] #: [id number] SHI
== END 2016-09-16 17:15 | disposition home or self-care (01) | DRG 391 ==
LOC: ED 21:32 → MEDTELE 09-10 01:28
PROVIDERS: ADMIT Internal Medicine; ATTEND Internal Medicine
PROC: 5A1D60Z (ICD-10-PCS; principal; 2016-09-11)
DX: K31.84 Gastroparesis (principal); N18.6 End stage renal disease; I13.2 Hypertensive heart and chronic kidney disease with heart failure and with stage 5 chronic kidney disease, or end stage renal disease; I25.810 Atherosclerosis of coronary artery bypass graft(s) without angina pectoris; I48.91 Unspecified atrial fibrillation; E86.1 Hypovolemia; K59.00 Constipation, unspecified; J44.9 Chronic obstructive pulmonary disease, unspecified; Z99.2 Dependence on renal dialysis; Z95.1 Presence of aortocoronary bypass graft; Z95.2 Presence of prosthetic heart valve; Z86.711 Personal history of pulmonary embolism; Z79.01 Long term (current) use of anticoagulants; Z86.718 Personal history of other venous thrombosis and embolism; E78.5 Hyperlipidemia, unspecified; F41.8 Other specified anxiety disorders; Z88.0 Allergy status to penicillin; Z88.8 Allergy status to other drugs, medicaments and biological substances; Z83.3 Family history of diabetes mellitus; Z82.49 Family history of ischemic heart disease and other diseases of the circulatory system; Z80.1 Family history of malignant neoplasm of trachea, bronchus and lung; F17.210 Nicotine dependence, cigarettes, uncomplicated
CPT/HCPCS: 36415; 71010; 71020; 74020; 74150; 74176; 80048; 80053; 83605; 83880; 84484; 84520; 85014; 85018; 85025; 85060; 85379; 85610; 85730; 87641; 90935; 93005; 93306; 94640; 94760; A9270-GY; G0257; J0360; J0780; J0885; J1170; J1644; J2060; J2270; J2405

== ENCOUNTER 2016-09-19 12:18 | Inpatient (IN) | payer MEDICARE, MEDICAID ==
[2016-09-19] MEDS ORDERED: HYDROmorphone* 1 MG/ML 1 ML SYR IV SLOW PU ONE ×2 (12:37→14:33)
[2016-09-19] MEDS ORDERED: LORazepam INJ* 2 MG/ML 1 ML VIAL IV PUSH ONE (12:41)
[2016-09-19] MEDS ORDERED: Metoclopramide IV* 5 MG/ML 2 ML VIAL IV ONE (12:41)
[2016-09-19] MEDS ORDERED: NS 0.9% 1000 ML* 1,000 ML IV ONE (12:42)
[2016-09-19 13:04] LABS: Hematocrit 25 % (35-47); Hemoglobin 8.4 g/dl (12.0-16.0); Mean Corpuscular HGB Conc 34 g/dl (31-36); Mean Corpuscular Hemoglobin 33 pg (27-31); Mean Corpuscular Volume 96 fL (80-97); Mean Platelet Volume 8 um3 (7.4-10.4); Red Blood Count 2.58 10^6/ul (4.0-5.4); Red Cell Distribution Width 18 % (10.5-15); White Blood Count 6.7 10^3/ul (3.5-10.8)
[2016-09-19 13:05] LABS: Add Diff/Slide Review? Manual Diff Added; Comments Flag Yes
[2016-09-19 13:20] LABS: Albumin 4.1 g/dL (3.2-5.2); BUN/Creatinine Ratio 2.3 (8-20); C Reactive Protein 12.59 mg/L (< 5.00); Calcium 9.3 mg/dL (8.6-10.3); EGFR African American 18.5 (>60); EGFR Non-African American 14.4 (>60); Globulin 2.9 g/dL (2-4); Potassium 3.4 mmol/L (3.5-5.0); Total Bilirubin 0.9 mg/dL (0.2-1.0)
[2016-09-19 13:25] LABS: Troponin I 0.05 ng/mL (<0.04)
[2016-09-19 14:03] LABS: Add Path Review? YES; Basophilic Stippling 1+; Eosinophils % 1 % (0-6); Immature Granulocytes 1 % (0-9); Metamyelocytes % 1 % (0-2); Microcytosis 2+; Neutrophil % 69 % (38-83)
[2016-09-19 14:04] LABS: Polychromasia 1+
--- NOTE | 2016-09-19 14:06 | RAD ---
Indication: Severe periumbilical pain, pancreatitis. CT of the abdomen and pelvis was performed without IV contrast. Oral contrast was administered. Coronal and sagittal reconstructed images were obtained. Comparison previous exam dated September 14, 2016. Lung bases demonstrate left basilar atelectasis with a small left pleural effusion. Right basilar atelectasis is noted. Cardiomegaly without evidence of pericardial effusion is noted. Liver is normal in size. No focal lesions or intrahepatic ductal dilatation is noted. The hepatic veins are prominent in size. The spleen is normal in size. The pancreas demonstrates no mass or pancreatic duct dilatation. The common duct is not dilated. The gallbladder is partially contracted with no definite calcified gallstones. No definite pericholecystic fluid or wall thickening is identified. No adrenal lesions are noted. Both kidneys appear atrophic. Atherosclerotic aorta is noted. Atherosclerosis of the celiac axis and superior mesenteric artery is noted. Left common iliac artery is dilated measuring up to 2.1 cm on the left. CT of the pelvis demonstrates no dilated loops of bowel present. The colon is filled with stool. No hernias are noted. A small to moderate amount of free fluid is noted in the pelvis. No hernias are identified. IMPRESSION: ATROPHIC KIDNEYS CONSISTENT WITH END-STAGE RENAL DISEASE. BIBASILAR ATELECTASIS WITH SMALL BILATERAL PLEURAL EFFUSIONS LARGER ON THE LEFT THAN ON THE RIGHT. ATHEROSCLEROTIC AORTA IS NOTED WITH ANEURYSMAL DILATATION OF THE LEFT COMMON ILIAC ARTERY MEASURES 2.2 CM. A SMALL TO MODERATE AMOUNT OF FREE FLUID IS NOTED IN THE PELVIS.
[2016-09-19] MEDS ORDERED: HYDROmorphone* 2 MG/ML 1 ML SYR IV SLOW PU ONE (16:10)
[2016-09-19] MEDS ORDERED: Ondansetron INJ* 2 MG/ML VIAL IV PRN (16:21)
[2016-09-19] MEDS ORDERED: Senna TAB PO ONE (16:25)
[2016-09-19] MEDS ORDERED: PEG 3000 GI LAVAGE* 1 GALLON PO ONE (16:25)
[2016-09-19] MEDS ORDERED: Albuterol 2.5 MG/3 ML NEB.SOL* (0.083%) INH PRN (16:26)
[2016-09-19] MEDS ORDERED: NS 0.9% 1000 ML* 1,000 ML IV SCH (16:30)
--- NOTE | 2016-09-19 16:50 | ED ---
Krystyna, Doctor,Brittany, scribed for Dirk Chris MD on 09/19/16 at 1246 . Abdominal Pain/Female - HPI Summary HPI Summary: 45 year old female arrived to [facility] presenting with constant abdominal pain for the past few days. She describes the pain as a "tearing" sensation; as if someone is trying to "cut out [her] stomach." She rates her pain as a 10/10. It is primarily located in the periumbilical region, with some radiation to the back. She reports vomiting, nausea, and reduced urine output. Pt denies CP or diarrhea. Pt recently was discharged from [facility]; she began experiencing abdominal pain immediately afterwards. She has PMHx of HTN and is on dialysis; pt denies any past abdominal surgeries. - History of Current Complaint Chief Complaint: EDAbdPain Stated Complaint: ABD PAIN Time Seen by Provider: 09/19/16 12:26 Hx Obtained From: Patient ?: Yes Onset/Duration: Lasting Days Timing: Constant Pain Intensity: 10 Pain Scale Used: 0-10 Numeric Location: Umbilical Radiates to: Back Character: Tearing Associated Signs and Symptoms: Positive: Back Pain, Urinary Symptoms - decreased urine output, Nausea, Vomiting. Negative: Fever, Chest Pain, Diarrhea Allergies/Adverse Reactions: Allergies Allergy/AdvReac Type Severity Reaction Status Date / Time Iodixanol [From Visipaque] Allergy Severe Airway Verified 09/19/16 12:21 Obstruction Lisinopril Allergy Severe Difficulty Verified 09/19/16 12:21 Breathing Penicillins Allergy Severe HIVES,SWELLING Verified 09/19/16 12:21 THROAT Cephalosporins Allergy not Verified 09/19/16 12:21 specified Home Medications: Home Medications amLODIPine TAB* [Norvasc 5 mg TAB*] 5 mg PO DAILY 09/19/16 [History Confirmed ] PMH/Surg Hx/FS Hx/Imm Hx Endocrine/Hematology History: Reports: Hx Anticoagulant Therapy, Hx Blood Transfusions, Hx Unexplained Bleeding Denies: Hx Blood Disorders, Hx Bone Marrow Disease, Hx Diabetes, Hx Systemic Lupus Erythematosus, Hx Sickle Cell Disease, Hx Thyroid Disease, Hx Anemia, Other Endocrine/Hematological Disorders Cardiovascular History: Reports: Hx Cardiomegaly, Hx Congestive Heart Failure, Hx Coronary Artery Disease, Hx Deep Vein Thrombosis, Hx Hypercholesterolemia, Hx Hypertension, Hx Valvular Heart Disease, Other Cardiovascular Problems/ Disorders - 2 artificial heart valves; Hx of endocarditis Denies: Hx Aneurysm, Hx Angina, Hx Angioplasty, Hx Auto Implanted Cardiovert Defib, Hx Cardiac Arrest, Hx Congenital Heart Disease, Hx Embolism, Hx Hypotension, Hx Pacemaker/ICD, Hx Peripheral Vascular Disease, Hx Rheumatic Fever, Hx Syncope Respiratory History: Reports: Hx Asthma, Hx Chronic Obstructive Pulmonary Disease (COPD), Hx Pneumonia, Hx Pulmonary Edema, Hx Pulmonary Embolism, Other Respiratory Problems/Disorders - PULMONARY EDEMA Denies: Hx Chronic Bronchitis, Hx Cystic Fibrosis, Hx Lung Cancer, Hx Pleural Effusion, Hx Seasonal Allergies, Hx Sleep Apnea History: Reports: Hx Chronic Renal Failure, Hx Dialysis - ESRD, [place] ON // FRI, Hx Renal Disease Denies: Hx Benign Prostatic Hyperplasia, Hx Kidney Infection, Hx Kidney Stones, Other Problems/Disorders Musculoskeletal History: Reports: Hx Arthritis Denies: Hx Back Problems, Hx Bursitis, Hx Congenital Bone Abnormalities, Hx Fibromyalgia, Hx Gout, Hx Orthopedic Injury, Hx Osteoporosis, Hx Scoliosis, Hx Tendonitis, Other Musculoskeletal History Sensory History: Reports: Hx Contacts or Glasses - glasses are at home Denies: Hx Hearing Aid Opthamlomology History: Reports: Hx Contacts or Glasses - glasses are at home Neurological History: Denies: Hx Seizures Psychiatric History: Reports: Hx Anxiety, Hx Depression Denies: Hx Attention Deficit Hyperactivity Disorder, Hx Eating Disorder, Hx Panic Disorder, Hx Post Traumatic Stress Disorder, Hx Inpatient Treatment, Hx Community Mental Health Tx, Hx Schizophrenia, Hx Bipolar Disorder, Hx Suicide Attempt, Hx of Violent Episodes Against Others, Hx Substance Abuse, Other Psychiatric Issues/Disorders - Surgical History Surgery Procedure, Year, and Place: bilateral knees, dialysis tube placed in abdomen( out), fistula tube placement in arm for dialysis Lt arm has been revised. waiting out ok to use [id number], open heart valve replacement, hysterectomy Hx Anesthesia Reactions: No - Immunization History Date of Tetanus Vaccine: Unk Date of Influenza Vaccine: Unk Infectious Disease History: Reports: Hx of Known/Suspected MRSA - Negative this visit Denies: Hx Clostridium Difficile, Hx Hepatitis, Hx Human Immunodeficiency Virus (HIV), Hx Shingles, Hx Tuberculosis, Hx Known/Suspected VRE, Traveled Outside the [place] in Last 30 Days - Family History Known Family History: Positive: Hypertension - Mother, Diabetes - Mother, Other Family History: Father -- Lung CA - Social History Alcohol Use: None Hx Substance Use: No Substance Use Type: Reports: Marijuana Hx Tobacco Use: Yes Smoking Status (MU): Former Smoker Type: Cigarettes Amount Used/How Often: 1/2 PPD Length of Time of Smoking/Using Tobacco: 15 Have You Smoked in the Last Year: Yes Review of Systems Negative: Fever Negative: Chest Pain Positive: Abdominal Pain, Vomiting, Nausea. Negative: Diarrhea Positive: other - decreased urine output Positive: Other - some back pain All Other Systems Reviewed And Are Negative: Yes Physical Exam - Summary Physical Exam Summary: General appearance: moderate acute distress, crying uncontrollably HEENT: normocephalic, atraumatic, ears and nose without masses or lesions Neck: symmetric without masses or tracheal deviation, no thyromegaly Chest: normal respiratory effort Cardiovascular: good color, warmth, and capillary refill in extremities, no peripheral edema Abdomen: tender around umbilicus Skin: no visible rashes, lesions, or ulcers Neurological/Psychiatric: oriented to time, place and person Triage Information Reviewed: Yes Vital Signs On Initial Exam: Initial Vitals Temp Pulse Resp BP Pulse Ox 98.1 F 77 16 151/101 100 09/19/16 12:21 09/19/16 12:21 09/19/16 12:21 09/19/16 12:21 09/19/16 12:21 Vital Signs Reviewed: Yes Diagnostics - Vital Signs Vital Signs Temp Pulse Resp BP Pulse Ox 09/19/16 12:21 98.1 F 77 16 151/101 100 - Laboratory Lab Results: Lab Results 09/19/16 09/19/16 09/19/16 Range/Units 12:42 12:42 12:50 WBC 6.7 (3.5-10.8) 10^3/ul RBC 2.58 L (4.0-5.4) 10^6/ul Hgb 8.4 L (12.0-16.0) g/dl Hct 25 L (35-47) % MCV 96 (80-97) fL MCH 33 H (27-31) pg MCHC 34 (31-36) g/dl RDW 18 H (10.5-15) % Plt Count 152 (150-450) 10^3/ul MPV 8 (7.4-10.4) um3 Immature Gran % (Auto) 1 (0-9) % Absolute Neuts (auto) 4.7 (1.5-7.7) 10^3/ul Absolute Lymphs (auto) 1.1 (1.0-4.8) 10^3/ul Absolute Monos (auto) 0.8 (0-0.8) 10^3/ul Absolute Eos (auto) 0.1 (0-0.6) 10^3/ul Absolute Basos (auto) 0 (0-0.2) 10^3/ul Absolute Nucleated RBC Not Reportable Neutrophils % 69 (38-83) % Lymphocytes % 17 L (25-47) % Monocytes % 12 (0-13) % Eosinophils % 1 (0-6) % Metamyelocytes % 1 (0-2) % Normal RBC Morphology Not Reportable Polychromasia 1+ Basophilic Stippling 1+ Microcytosis 2+ Hem Pathologist Commnt Pending INR (Anticoag Therapy) (0.89-1.11) Sodium 135 (133-145) mmol/L Potassium 3.4 L (3.5-5.0) mmol/L Chloride 91 L (101-111) mmol/L Carbon Dioxide 36 H (22-32) mmol/L Anion Gap 8 (2-11) mmol/L BUN 8 (6-24) mg/dL Creatinine 3.45 H (0.51-0.95) mg/dL Est GFR ( Amer) 18.5 (>60) Est GFR (Non-Af Amer) 14.4 (>60) BUN/Creatinine Ratio 2.3 L (8-20) Glucose 93 (70-100) mg/dL Lactic Acid 0.9 (0.5-2.0) mmol/L Calcium 9.3 (8.6-10.3) mg/dL Total Bilirubin 0.90 (0.2-1.0) mg/dL AST 17 (13-39) U/L ALT 4 L (7-52) U/L Alkaline Phosphatase 64 (34-104) U/L Total Creatine Kinase 78 (10-223) U/L Troponin I 0.05 H* (<0.04) ng/mL C-Reactive Protein 12.59 H (< 5.00) mg/L Total Protein 7.0 (6.4-8.9) g/dL Albumin 4.1 (3.2-5.2) g/dL Globulin 2.9 (2-4) g/dL Albumin/Globulin Ratio 1.4 (1-3) Amylase 74 (29-103) U/L Lipase 57 (11.0-82.0) U/L 09/19/16 Range/Units 12:50 WBC (3.5-10.8) 10^3/ul RBC (4.0-5.4) 10^6/ul Hgb (12.0-16.0) g/dl Hct (35-47) % MCV (80-97) fL MCH (27-31) pg MCHC (31-36) g/dl RDW (10.5-15) % Plt Count (150-450) 10^3/ul MPV (7.4-10.4) um3 Immature Gran % (Auto) (0-9) % Absolute Neuts (auto) (1.5-7.7) 10^3/ul Absolute Lymphs (auto) (1.0-4.8) 10^3/ul Absolute Monos (auto) (0-0.8) 10^3/ul Absolute Eos (auto) (0-0.6) 10^3/ul Absolute Basos (auto) (0-0.2) 10^3/ul Absolute Nucleated RBC Neutrophils % (38-83) % Lymphocytes % (25-47) % Monocytes % (0-13) % Eosinophils % (0-6) % Metamyelocytes % (0-2) % Normal RBC Morphology Polychromasia Basophilic Stippling Microcytosis Hem Pathologist Commnt INR (Anticoag Therapy) 2.16 H (0.89-1.11) Sodium (133-145) mmol/L Potassium (3.5-5.0) mmol/L Chloride (101-111) mmol/L Carbon Dioxide (22-32) mmol/L Anion Gap (2-11) mmol/L BUN (6-24) mg/dL Creatinine (0.51-0.95) mg/dL Est GFR ( Amer) (>60) Est GFR (Non-Af Amer) (>60) BUN/Creatinine Ratio (8-20) Glucose (70-100) mg/dL Lactic Acid (0.5-2.0) mmol/L Calcium (8.6-10.3) mg/dL Total Bilirubin (0.2-1.0) mg/dL AST (13-39) U/L ALT (7-52) U/L Alkaline Phosphatase (34-104) U/L Total Creatine Kinase (10-223) U/L Troponin I (<0.04) ng/mL C-Reactive Protein (< 5.00) mg/L Total Protein (6.4-8.9) g/dL Albumin (3.2-5.2) g/dL Globulin (2-4) g/dL Albumin/Globulin Ratio (1-3) Amylase (29-103) U/L Lipase (11.0-82.0) U/L Result Diagrams: 09/19/16 12:50 09/19/16 12:42 Lab Statement: Any lab studies that have been ordered have been reviewed, and results considered in the medical decision making process. - CT Abdomen/Pelvis CT CT Interpretation Completed By: Radiologist - IMPRESSION: ATROPHIC KIDNEYS CONSISTENT WITH END-STAGE RENAL DISEASE. BIBASILAR ATELECTASIS WITH SMALL BILATERAL PLEURAL EFFUSIONS LARGER ON THE LEFT THAN ON THE RIGHT. ATHEROSCLEROTIC AORTA IS NOTED WITH ANEURYSMAL DILATATION OF THE LEFT COMMON ILIAC ARTERY MEASURES 2.2 CM. A SMALL TO MODERATE AMOUNT OF FREE FLUID IS NOTED IN THE PELVIS. - EKG 1247 EKG Interpretation: LVH, AFib, normal axis, no STEMI Re-Evaluation - Re-Evaluation First Eval Re-Evaluation Time: 14:43 Change: Unchanged Comment: Pt still in a lot of pain. Will speak with hospitalist about possible admission. Abdominal Pain Fem Course/Dx - Diagnoses Differential Diagnosis: Positive: Bowel Obstruction, Diverticulitis, Gall Bladder Disease, Pancreatitis, Peptic Ulcer Disease, Other - umbilical hernia, mesenteric ischemia, chronic renal failure Provider Diagnoses: Abdominal pain, End stage chronic kidney disease - Provider Notifications Discussed Care Of Patient With: 1503: Spoke with Dr. Heller (Hospitalist) for a consult. She agrees to come see pt in ED. Discharge - Discharge Plan Condition: Stable Disposition: ADMITTED TO [facility] documentation as recorded by the Doctor sosa Tahera accurately reflects the service I personally performed and the decisions made by me, Dirk Chris MD.
[2016-09-19] MEDS: Metoclopramide TAB* 10 MG PO SCH ×2 (19:13→21:50)
[2016-09-19] MEDS: Morphine INJ* 4 MG/ML 1 ML SYRINGE IV PRN (19:51)
[2016-09-19] MEDS: Warfarin TAB(*) 5 MG PO SCH (20:00)
--- NOTE | 2016-09-19 20:40 | HP ---
ADMISSION HISTORY AND PHYSICAL:* ADDENDUM: DATE OF ADMISSION: 09/19/16 Please note the possibility of mesenteric ischemia was considered at the time of admission, but seemed to be less likely in the setting of a normal lactic acid with persistent abdominal pain. The patient is unable to undergo a CT angiogram due to severe anaphylaxis to CT dye. JONATHON PADILLA [id number]/[facility] #: [id number] [facility]
[2016-09-19] MEDS: Senna TAB PO SCH (21:48)
[2016-09-19] MEDS: ALPRAZolam TAB* 0.25 MG PO PRN (21:49)
[2016-09-19] MEDS: Sevelamer TAB* 800 MG PO SCH (21:52)
[2016-09-19] MEDS: Metoprolol Tartrate TAB* 25 MG PO SCH (21:53)
[2016-09-19] MEDS: Pregabalin CAP(*) 50 MG PO SCH (21:54)
[2016-09-19] MEDS ORDERED: Heparin VIAL(*) 5000 UNITS/ML VIAL (FIVE THOUSAND) SUBCUT SCH (22:00)
[2016-09-19] MEDS: oxyCODONE TAB* 5 MG TAB PO PRN (22:09)
--- NOTE | 2016-09-20 02:29 | HP ---
ADMISSION HISTORY AND PHYSICAL: DATE OF ADMISSION: 09/19/16 PRIMARY CARE PROVIDER: Diogo Burns MD. ADMITTING PROVIDER: JONATHON Padilla SUPERVISING PHYSICIAN: DO Negra Rdz (DICTATED BY JONATHON PADILLA) CHIEF COMPLAINT: Abdominal pain. HISTORY OF PRESENT ILLNESS: This is a 45-year-old female with an extensive medial history including end-stage renal disease, on hemodialysis as well as COPD, atrial fibrillation, history of complicated PE, hypertension, hyperlipidemia, coronary artery disease, and chronic diastolic heart failure as well as history of mitral and aortic valve replacements as well as depression and anxiety who presented to the emergency department with complaints of abdominal pain. The patient was discharged just 3 days ago where she was admitted for several days, also with complaints of abdominal pain. Her pain seem to be most likely related to constipation and the patient's symptoms resolved after having a large bowel movement. It did seem that the patient had a chronic component to her abdominal pain and often complained of a bloating sensation after eating and early satiety. CT scans during her prior admission demonstrated some gastric distention and it seemed likely that gastroparesis may at least be playing a part in her complaint of abdominal pain. The patient was discharged with Reglan. The patient states that after returning home that day that she continued to have diarrhea and then later that evening, she began having severe abdominal pain again. She has been having intermittent but nearly intractable abdominal pain since the time of discharge. She states she continues to have loose bowel movement on a daily basis. She states that her stools are mostly green. She denies any blood or melena. She has had some intermittent nausea and occasional vomiting. Again, denies any hematemesis or coffee-ground emesis. The patient at the time of discharge reported that she was changing primary care providers and was without her usual oxycodone prescription. A 2-week supply of oxycodone was sent to her pharmacy at the time of discharge. There was some discrepancy in her home medication list, but after confirming her prior prescriptions on the [facility] website, a replacement prescription was sent to [facility] for 15 mg of oxycodone. I contacted the patient's pharmacy and it seems that yesterday she picked up a prescription for 5/325 Percocet rather than the 15 mg oxycodone tablets that were sent and she did not order picker/assembler the Reglan as apparently that was not ready for her until today. The patient states that the pain is somehow slightly different than what brought her into the emergency department last week originally. She feels that the majority of her pain is in just above her umbilicus. She feels extremely bloated and noted this morning that her abdomen was quite distended and she looked . She reported an area that seemed to almost be a palpable mass within her abdomen that was the source of the majority of her pain. PAST MEDICAL HISTORY: 1. End-stage renal disease, on hemodialysis, followed by Dr. Osorio with a Friday, , Friday schedule. 2. COPD. 3. Atrial fibrillation, anticoagulated on Coumadin. 4. History of complicated PE with alveolar hemorrhage. 5. Hypertension. 6. Hyperlipidemia. 7. Coronary artery disease. 8. Chronic diastolic heart failure. 9. Mitral and aortic valve replacements. 10. Depression and anxiety. PAST SURGICAL HISTORY: 1. Mitral and aortic valve replacements. 2. Hysterectomy. 3. Peritoneal dialysis catheter. 4. AV fistulas. 5. Arthroscopy. 6. CABG. HOME MEDICATIONS: 1. Xanax 0.25 mg p.o. t.i.d. as needed for anxiety. 2. Nebulized albuterol inhaled every 6 hours as needed for shortness of breath. 3. Aspirin 81 mg p.o. daily. 4. Lipitor 80 mg p.o. daily. 5. Sensipar 30 mg p.o. daily. 6. Diltiazem 240 mg p.o. daily. 7. Reglan 5 mg p.o. a.c., h.s. 8. Metoprolol tartrate 12.5 mg p.o. twice a day. 9. Oxycodone 15 mg p.o. every 6 hours as needed for pain. 10. Lyrica 50 mg p.o. at bedtime. 11. Renvela 4800 mg p.o. t.i.d. 12. Spiriva 1 capsule inhale daily. 13. Coumadin 5 mg p.o. daily. 14. Amlodipine 5 mg p.o. daily. SOCIAL HISTORY: The patient continues to smoke half a pack of cigarettes daily with greater than 98-qddi-odty smoking history. Denies any regular alcohol consumption. She lives with her children. REVIEW OF SYSTEMS: As listed above in HPI. All other systems reviewed and otherwise negative. PHYSICAL EXAMINATION GENERAL: This is an extremely uncomfortable appearing middle-aged female who is crying in pain. VITAL SIGNS: Initial vitals; temperature 98.1 degrees Fahrenheit, pulse 77 beats per minute, respiratory rate 16, oxygen saturation 100% on room air, blood pressure 151/101 mmHg. HEENT: Head is normocephalic and atraumatic. The patient is edentulous. RESPIRATORY: Lungs are clear to auscultation without wheezes, crackles or rhonchi. CARDIOVASCULAR: Heart has regular rate and rhythm without murmurs, rubs, or gallops. ABDOMEN: Abdomen appears to be distended but is soft. It is severely and diffusely tender to palpation. Bowel sounds are present in all quadrants. SKIN: Limited exam shows no concerning rashes or lesions. PSYCH: The patient is alert and appropriately oriented. LABORATORY EVALUATION: CBC is essentially within normal limits. White blood cell count is 6700 with a hemoglobin of 8.4 g/dL, which is near patient's baseline, platelet count of 152,000. INR of 2.16. Comprehensive metabolic panel shows sodium of 135, potassium 3.4, BUN is 8, creatinine 3.45. Lactic acid 0.9. Transaminases and total bilirubin within normal limits. Troponin mildly elevated at 0.05. CRP mildly elevated at 12.5. Lipase and amylase within normal limits. IMAGING: CT of the abdomen and pelvis demonstrates colon filled stool. No other acute pathology. Stomach appears to be of normal size. ASSESSMENT AND PLAN: This is a 45-year-old female with extensive medical history including end-stage renal disease, chronic diastolic heart failure, atrial fibrillation, chronic obstructive pulmonary disease, hypertension, hyperlipidemia, coronary artery disease, history of deep venous thrombosis and pulmonary embolism as well as depression and anxiety who presents to the emergency department with complaints of abdominal pain. This patient was recently admitted with the same complaint and appeared to be secondary to constipation. 1. Abdominal pain - despite this patient having diarrhea on a daily basis, CT scan demonstrates a large amount of stool throughout the colon and the patient' s presentation of a crampy abdominal pain with distention and palpable mass would fit with a diagnosis of constipation with overflow diarrhea. We will try to aggressively treat her constipation with senna as well as GoLYTELY and see if we can relieve her discomfort that way. There was suspicion that gastroparesis may be contributing to her symptoms as well. We will plan to initiate Reglan before meals and at bedtime. The patient will be maintained on a clear liquid diet at this time. 2. End-stage renal disease - The patient is maintained on a Friday, , Friday hemodialysis schedule and followed by Dr. Osorio. She received dialysis on Friday prior to leaving the hospital and skipped dialysis on Friday , but did participate in full length of therapy today prior to coming to the emergency department. No electrolyte abnormalities noted. 3. Chronic diastolic heart failure without evidence of acute exacerbation. 4. Atrial fibrillation: This was probably rate controlled and anticoagulated with Coumadin, currently therapeutic. 5. Chronic obstructive pulmonary disease without acute exacerbation. 6. History of depression and anxiety. 7. Code status: The patient is full code. 8. Surrogate decision maker is patient's friend, Edilma. DISPOSITION: The patient is being admitted to observation status with complaints of abdominal pain of unknown etiology presumed to be secondary to constipation. Anticipate possible discharge tomorrow. JONATHON PADILLA ADDENDUM: DATE OF ADMISSION: 09/19/16 Please note the possibility of mesenteric ischemia was considered at the time of admission, but seemed to be less likely in the setting of a normal lactic acid with persistent abdominal pain. The patient is unable to undergo a CT angiogram due to severe anaphylaxis to CT dye. JONATHON PADILLA CC: Diogo Burns MD* [id number]/[facility] #: [id number] Reinaldo-[id number]/[facility] #: [id number] [facility]
[2016-09-20] MEDS: Morphine INJ* 4 MG/ML 1 ML SYRINGE IV PRN ×2 (02:58→07:41)
[2016-09-20] MEDS: Metoclopramide TAB* 10 MG PO SCH ×4 (07:41→20:34)
[2016-09-20] MEDS: Tiotropium CAP.INH* CAP.INH/18 MCG INH SCH (07:59)
[2016-09-20] MEDS ORDERED: Spiriva Inhaler DEVICE* 1 EACH DEVICE INH ONE (09:00)
[2016-09-20 09:17] LABS: Hematocrit 23 % (35-47); Hemoglobin 7.7 g/dl (12.0-16.0); Mean Corpuscular HGB Conc 33 g/dl (31-36); Mean Corpuscular Hemoglobin 32 pg (27-31); Mean Corpuscular Volume 97 fL (80-97); Mean Platelet Volume 7 um3 (7.4-10.4); Red Cell Distribution Width 18 % (10.5-15); White Blood Count 6.6 10^3/ul (3.5-10.8)
[2016-09-20 09:18] LABS: Add Diff/Slide Review? Slide Review Added; Comments Flag Yes
[2016-09-20 09:29] LABS: Albumin 3.6 g/dL (3.2-5.2); BUN/Creatinine Ratio 2.2 (8-20); Calcium 8.9 mg/dL (8.6-10.3); EGFR African American 10.9 (>60); EGFR Non-African American 8.5 (>60); Globulin 2.5 g/dL (2-4); Potassium 3.3 mmol/L (3.5-5.0); Total Bilirubin 0.6 mg/dL (0.2-1.0); Total Protein 6.1 g/dL (6.4-8.9)
[2016-09-20] MEDS: Metoprolol Tartrate TAB* 25 MG PO SCH ×2 (09:54→20:34)
[2016-09-20] MEDS ORDERED: Epoetin Alfa* 10,000 UNITS/ML VIAL IV ONE (12:00)
[2016-09-20] MEDS: Aspirin EC Low Dose* 81 MG TAB.EC PO SCH (14:54)
[2016-09-20] MEDS: Diltiazem CD CAP* 240 MG PO SCH (14:54)
[2016-09-20] MEDS: amLODIPine TAB* 5 MG PO SCH (14:54)
[2016-09-20] MEDS: oxyCODONE TAB* 5 MG TAB PO PRN ×2 (14:55→20:35)
--- NOTE | 2016-09-20 14:55 | PN ---
Subjective Date of Service: 09/20/16 Interval History: Ms. Joseph is tearful, stating "My belly has been hurting and it's moving up into my chest." She reports abd distention. She reports further episodes of diarrhea with the GoLytely. She denies SOB, fever/chills. Family History: Unchanged from Admission Social History: Unchanged from Admission Past Medical History: Unchanged from Admission Objective Active Medications: Albuterol (Ventolin 2.5 Mg/3 Ml Neb.Tonya*) 2.5 mg INH Q6H PRN PRN Reason: SOB/WHEEZING Alprazolam (Xanax Tab*) 0.25 mg PO TID PRN PRN Reason: ANXIETY Last Admin: 09/19/16 21:49 Dose: 0.25 mg Amlodipine Besylate (Norvasc Tab*) 5 mg PO DAILY [facility] Aspirin (Aspirin Ec Low Dose*) 81 mg PO DAILY [facility] Cinacalcet (Sensipar Tab*) 30 mg PO DAILY [facility] Diltiazem HCl (Cardizem Cd Cap*) 240 mg PO DAILY [facility] Metoclopramide HCl (Reglan Tab*) 5 mg PO ACHS [facility] Last Admin: 09/20/16 12:23 Dose: Not Given Metoprolol Tartrate (Lopressor Tab*) 12.5 mg PO BID [facility] Last Admin: 09/20/16 09:54 Dose: 12.5 mg Morphine Sulfate (Morphine Inj (Syringe)*) 4 mg IV Q4H PRN PRN Reason: PAIN Last Admin: 09/20/16 07:41 Dose: 4 mg Ondansetron HCl (Zofran Inj*) 4 mg IV Q4H PRN PRN Reason: NAUSEA/VOMITING Oxycodone HCl (Roxycodone Tab*) 15 mg PO Q6H PRN PRN Reason: PAIN Last Admin: 09/19/16 22:09 Dose: 15 mg Pregabalin (Lyrica Cap(*)) 50 mg PO BEDTIME [facility] Last Admin: 09/19/16 21:54 Dose: 50 mg Senna (Senokot Tab*) 1 tab PO BEDTIME [facility] Last Admin: 09/19/16 21:48 Dose: 1 tab Sevelamer Carbonate (Renvela Tab*) 4,800 mg PO TID [facility] Last Admin: 09/19/16 21:52 Dose: 4,800 mg Tiotropium [place] (Spiriva Cap.Inh*) 1 cap INH DAILY [facility] Last Admin: 09/20/16 07:59 Dose: 1 cap Warfarin Sodium (Coumadin Tab(*)) 5 mg PO DAILY@1700 [facility] PRN Reason: Protocol Last Admin: 09/19/16 20:00 Dose: 5 mg Vital Signs 09/19/16 09/19/16 09/19/16 16:58 17:00 17:30 Temperature Pulse Rate 81 74 75 Respiratory 25 17 17 Rate Blood Pressure 174/107 161/103 155/105 (mmHg) O2 Sat by Pulse 100 100 100 Oximetry 09/19/16 09/19/16 09/19/16 18:20 18:36 19:43 Temperature 98.1 F 98.1 F 98.6 F Pulse Rate 77 78 73 Respiratory 22 18 Rate Blood Pressure 192/119 192/119 179/101 (mmHg) O2 Sat by Pulse 100 100 100 Oximetry 09/19/16 09/19/16 09/19/16 19:51 20:51 21:49 Temperature Pulse Rate Respiratory 17 20 20 Rate Blood Pressure (mmHg) O2 Sat by Pulse Oximetry 09/19/16 09/19/16 09/19/16 21:54 22:09 23:15 Temperature 99.1 F Pulse Rate 96 Respiratory 20 20 16 Rate Blood Pressure 185/107 (mmHg) O2 Sat by Pulse 100 Oximetry 09/19/16 09/19/16 09/20/16 23:49 23:54 00:09 Temperature Pulse Rate Respiratory 18 18 18 Rate Blood Pressure (mmHg) O2 Sat by Pulse Oximetry 09/20/16 09/20/16 09/20/16 02:58 03:43 03:58 Temperature 98.9 F Pulse Rate 95 Respiratory 18 16 17 Rate Blood Pressure 190/126 (mmHg) O2 Sat by Pulse 100 Oximetry 09/20/16 09/20/16 09/20/16 07:19 07:41 08:41 Temperature 98.6 F Pulse Rate 102 Respiratory 18 18 18 Rate Blood Pressure 182/90 (mmHg) O2 Sat by Pulse 95 Oximetry 09/20/16 09:25 Temperature Pulse Rate 102 Respiratory Rate Blood Pressure 177/106 (mmHg) O2 Sat by Pulse 99 Oximetry Oxygen Devices in Use Now: Nasal Cannula Appearance: Tearful female, lying in bed Eyes: PERRLA Ears/Nose/Mouth/Throat: Mucous Membranes Moist Neck: NL Appearance and Movements; NL JVP Respiratory: Symmetrical Chest Expansion and Respiratory Effort, Clear to Auscultation Cardiovascular: NL Sounds; No Murmurs; No JVD, RRR Abdominal: - - BS present, abd soft, mildly distended, diffusely tender Extremities: No Edema Skin: No Rash or Ulcers Neurological: Alert and Oriented x 3, NL Muscle Strength and Tone Lines/Tubes/Other Access: Clean, Dry and Intact Peripheral IV Nutrition: Taking PO's Result Diagrams: 09/20/16 09:07 09/20/16 09:07 Additional Lab and Data: Lab Results 09/19/16 09/19/16 09/19/16 Range/Units 12:42 12:42 12:50 WBC 6.7 (3.5-10.8) 10^3/ul RBC 2.58 L (4.0-5.4) 10^6/ul Hgb 8.4 L (12.0-16.0) g/dl Hct 25 L (35-47) % MCV 96 (80-97) fL MCH 33 H (27-31) pg MCHC 34 (31-36) g/dl RDW 18 H (10.5-15) % Plt Count 152 (150-450) 10^3/ul MPV 8 (7.4-10.4) um3 Immature Gran % (Auto) 1 (0-9) % Absolute Neuts (auto) 4.7 (1.5-7.7) 10^3/ul Absolute Lymphs (auto) 1.1 (1.0-4.8) 10^3/ul Absolute Monos (auto) 0.8 (0-0.8) 10^3/ul Absolute Eos (auto) 0.1 (0-0.6) 10^3/ul Absolute Basos (auto) 0 (0-0.2) 10^3/ul Absolute Nucleated RBC Not Reportable Neutrophils % 69 (38-83) % Lymphocytes % 17 L (25-47) % Monocytes % 12 (0-13) % Eosinophils % 1 (0-6) % Metamyelocytes % 1 (0-2) % Normal RBC Morphology Not Reportable Polychromasia 1+ Basophilic Stippling 1+ Microcytosis 2+ Hem Pathologist Commnt Pending INR (Anticoag Therapy) (0.89-1.11) Sodium 135 (133-145) mmol/L Potassium 3.4 L (3.5-5.0) mmol/L Chloride 91 L (101-111) mmol/L Carbon Dioxide 36 H (22-32) mmol/L Anion Gap 8 (2-11) mmol/L BUN 8 (6-24) mg/dL Creatinine 3.45 H (0.51-0.95) mg/dL Est GFR ( Amer) 18.5 (>60) Est GFR (Non-Af Amer) 14.4 (>60) BUN/Creatinine Ratio 2.3 L (8-20) Glucose 93 (70-100) mg/dL Lactic Acid 0.9 (0.5-2.0) mmol/L Calcium 9.3 (8.6-10.3) mg/dL Total Bilirubin 0.90 (0.2-1.0) mg/dL AST 17 (13-39) U/L ALT 4 L (7-52) U/L Alkaline Phosphatase 64 (34-104) U/L Total Creatine Kinase 78 (10-223) U/L Troponin I 0.05 H* (<0.04) ng/mL C-Reactive Protein 12.59 H (< 5.00) mg/L Total Protein 7.0 (6.4-8.9) g/dL Albumin 4.1 (3.2-5.2) g/dL Globulin 2.9 (2-4) g/dL Albumin/Globulin Ratio 1.4 (1-3) Amylase 74 (29-103) U/L Lipase 57 (11.0-82.0) U/L 09/19/16 Range/Units 12:50 WBC (3.5-10.8) 10^3/ul RBC (4.0-5.4) 10^6/ul Hgb (12.0-16.0) g/dl Hct (35-47) % MCV (80-97) fL MCH (27-31) pg MCHC (31-36) g/dl RDW (10.5-15) % Plt Count (150-450) 10^3/ul MPV (7.4-10.4) um3 Immature Gran % (Auto) (0-9) % Absolute Neuts (auto) (1.5-7.7) 10^3/ul Absolute Lymphs (auto) (1.0-4.8) 10^3/ul Absolute Monos (auto) (0-0.8) 10^3/ul Absolute Eos (auto) (0-0.6) 10^3/ul Absolute Basos (auto) (0-0.2) 10^3/ul Absolute Nucleated RBC Neutrophils % (38-83) % Lymphocytes % (25-47) % Monocytes % (0-13) % Eosinophils % (0-6) % Metamyelocytes % (0-2) % Normal RBC Morphology Polychromasia Basophilic Stippling Microcytosis Hem Pathologist Commnt INR (Anticoag Therapy) 2.16 H (0.89-1.11) Sodium (133-145) mmol/L Potassium (3.5-5.0) mmol/L Chloride (101-111) mmol/L Carbon Dioxide (22-32) mmol/L Anion Gap (2-11) mmol/L BUN (6-24) mg/dL Creatinine (0.51-0.95) mg/dL Est GFR ( Amer) (>60) Est GFR (Non-Af Amer) (>60) BUN/Creatinine Ratio (8-20) Glucose (70-100) mg/dL Lactic Acid (0.5-2.0) mmol/L Calcium (8.6-10.3) mg/dL Total Bilirubin (0.2-1.0) mg/dL AST (13-39) U/L ALT (7-52) U/L Alkaline Phosphatase (34-104) U/L Total Creatine Kinase (10-223) U/L Troponin I (<0.04) ng/mL C-Reactive Protein (< 5.00) mg/L Total Protein (6.4-8.9) g/dL Albumin (3.2-5.2) g/dL Globulin (2-4) g/dL Albumin/Globulin Ratio (1-3) Amylase (29-103) U/L Lipase (11.0-82.0) U/L Diagnostic Imaging: CT abd/pelvis: ATROPHIC KIDNEYS CONSISTENT WITH END-STAGE RENAL DISEASE. BIBASILAR ATELECTASIS WITH SMALL BILATERAL PLEURAL EFFUSIONS LARGER ON THE LEFT THAN ON THE RIGHT. ATHEROSCLEROTIC AORTA IS NOTED WITH ANEURYSMAL DILATATION OF THE LEFT COMMON ILIAC ARTERY MEASURES 2.2 CM. A SMALL TO MODERATE AMOUNT OF FREE FLUID IS NOTED IN THE PELVIS. EKG Data: EKG: LVH, AFib, normal axis, no STEMI Assess/Plan/Problems-Billing Assessment: Ms. Joseph is a 45 yo female with a PMH significant for ESRD, afib, COPD, PE with alveolar hemorrhage, CAD, HTN, HLD, chronic diastolic HF, mitral and aortic valve replacements s/p balloon dilatation to AV, and depression and anxiety who presented to the ED on 09/19/16 with concern for abd pain and diarrhea. 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 Continue metoclopramide and GoLytely bowel prep. Supportive care (2) Chest pain Code(s): R07.9 - CHEST PAIN, UNSPECIFIED Comment: Transient, suspect secondary to anxiety and bowel discomfort Trop 0.05, which is within patient's baseline. No acute ST or T wave changes seen on EKG (3) Atrial fibrillation Code(s): I48.91 - UNSPECIFIED ATRIAL FIBRILLATION Comment: Rate controlled Continue Cardizem and Toprol Continue warfarin 5mg (4) End stage renal disease on dialysis Code(s): N18.6 - END STAGE RENAL DISEASE; Z99.2 - DEPENDENCE ON RENAL DIALYSIS Comment: Continue dialysis per nephrology team. Dialysis today 09/20 (5) HTN (hypertension) Code(s): I10 - ESSENTIAL (PRIMARY) HYPERTENSION Comment: Elevated, will likely improve after dialysis and receiving home medications Pain and anxiety likely contributing Continue home regimen (6) COPD (chronic obstructive pulmonary disease) Code(s): J44.9 - CHRONIC OBSTRUCTIVE PULMONARY DISEASE, UNSPECIFIED Comment: Stable. Continue Spiriva and PRN nebulizers. (7) History of coronary artery disease Code(s): Z86.79 - PERSONAL HISTORY OF OTHER DISEASES OF THE CIRCULATORY SYSTEM Comment: Continue ASA and beta clara. (8) Aortic valve replaced Current Visit: No Status: Acute Code(s): Z95.2 - PRESENCE OF PROSTHETIC HEART VALVE SNOMED Code(s): 9912229955049 Comment: s/p recent balloon dilitation (9) DVT prophylaxis Code(s): [id number] - Comment: Continue warfarin. Status and Disposition: OBV admit. D/c to home when medically stable.
[2016-09-20] MEDS: Sevelamer TAB* 800 MG PO SCH ×3 (14:58→20:34)
[2016-09-20] MEDS: Cinacalcet TAB* 30 MG PO SCH (14:58)
[2016-09-20] MEDS: Warfarin TAB(*) 5 MG PO SCH (16:45)
[2016-09-20] MEDS: ALPRAZolam TAB* 0.25 MG PO PRN (16:47)
[2016-09-20] MEDS: Pregabalin CAP(*) 50 MG PO SCH (20:34)
[2016-09-20] MEDS: Senna TAB PO SCH (20:35)
[2016-09-21] MEDS: Metoprolol Tartrate TAB* 25 MG PO SCH (07:51)
[2016-09-21] MEDS: Sevelamer TAB* 800 MG PO SCH ×3 (07:52→16:18)
[2016-09-21] MEDS: oxyCODONE TAB* 5 MG TAB PO PRN ×2 (07:52→18:48)
[2016-09-21] MEDS: Diltiazem CD CAP* 240 MG PO SCH (07:53)
[2016-09-21] MEDS: Metoclopramide TAB* 10 MG PO SCH ×4 (07:53→20:29)
[2016-09-21] MEDS: Aspirin EC Low Dose* 81 MG TAB.EC PO SCH (07:53)
[2016-09-21] MEDS: Cinacalcet TAB* 30 MG PO SCH (07:53)
[2016-09-21] MEDS: amLODIPine TAB* 5 MG PO SCH (07:53)
[2016-09-21] MEDS: Tiotropium CAP.INH* CAP.INH/18 MCG INH SCH (08:17)
--- NOTE | 2016-09-21 08:51 | PN ---
Subjective Date of Service: 09/21/16 Interval History: Ms. Joseph is very enthusiastic this morning, stating that she has had "3 large bowel movements" overnight and this morning and reports that her "belly feels so much better." She feels like her stomach is back to normal and denies nausea. She denies chest pain, SOB or other acute concerns. She reports that she previously would have a BM once a week. We discussed diet changes and increasing her fiber. We also reviewed OTC medications that she could use for her home bowel regimen - she states that she already has Dulcolax, stool softeners, and Miralax, which she will continue using as needed. Family History: Unchanged from Admission Social History: Unchanged from Admission Past Medical History: Unchanged from Admission Objective Active Medications: Albuterol (Ventolin 2.5 Mg/3 Ml Neb.Tonya*) 2.5 mg INH Q6H PRN PRN Reason: SOB/WHEEZING Alprazolam (Xanax Tab*) 0.25 mg PO TID PRN PRN Reason: ANXIETY Last Admin: 09/20/16 16:47 Dose: 0.25 mg Amlodipine Besylate (Norvasc Tab*) 5 mg PO DAILY [facility] Last Admin: 09/21/16 07:53 Dose: 5 mg Aspirin (Aspirin Ec Low Dose*) 81 mg PO DAILY [facility] Last Admin: 09/21/16 07:53 Dose: 81 mg Cinacalcet (Sensipar Tab*) 30 mg PO DAILY [facility] Last Admin: 09/21/16 07:53 Dose: 30 mg Diltiazem HCl (Cardizem Cd Cap*) 240 mg PO DAILY [facility] Last Admin: 09/21/16 07:53 Dose: 240 mg Metoclopramide HCl (Reglan Tab*) 5 mg PO ACHS [facility] Last Admin: 09/21/16 07:53 Dose: 5 mg Metoprolol Tartrate (Lopressor Tab*) 12.5 mg PO BID [facility] Last Admin: 09/21/16 07:51 Dose: 12.5 mg Morphine Sulfate (Morphine Inj (Syringe)*) 4 mg IV Q4H PRN PRN Reason: PAIN Last Admin: 09/20/16 07:41 Dose: 4 mg Ondansetron HCl (Zofran Inj*) 4 mg IV Q4H PRN PRN Reason: NAUSEA/VOMITING Oxycodone HCl (Roxycodone Tab*) 15 mg PO Q6H PRN PRN Reason: PAIN Last Admin: 09/21/16 07:52 Dose: 15 mg Pregabalin (Lyrica Cap(*)) 50 mg PO BEDTIME [facility] Last Admin: 09/20/16 20:34 Dose: 50 mg Senna (Senokot Tab*) 1 tab PO BEDTIME [facility] Last Admin: 09/20/16 20:35 Dose: 1 tab Sevelamer Carbonate (Renvela Tab*) 4,800 mg PO TID [facility] Last Admin: 09/21/16 07:52 Dose: 4,800 mg Tiotropium [place] (Spiriva Cap.Inh*) 1 cap INH DAILY [facility] Last Admin: 09/21/16 08:17 Dose: 1 cap Warfarin Sodium (Coumadin Tab(*)) 5 mg PO DAILY@1700 [facility] PRN Reason: Protocol Last Admin: 09/20/16 16:45 Dose: 5 mg Vital Signs 09/20/16 09/20/16 09/20/16 09:25 14:55 15:51 Temperature 98.2 F Pulse Rate 102 113 Respiratory 16 16 Rate Blood Pressure 177/106 190/139 (mmHg) O2 Sat by Pulse 99 97 Oximetry 09/20/16 09/20/16 09/20/16 16:47 16:55 18:47 Temperature Pulse Rate Respiratory 17 17 16 Rate Blood Pressure (mmHg) O2 Sat by Pulse Oximetry 09/20/16 09/20/16 09/20/16 19:31 20:34 20:35 Temperature 98.3 F Pulse Rate 94 Respiratory 16 16 16 Rate Blood Pressure 154/97 (mmHg) O2 Sat by Pulse 100 Oximetry 09/20/16 09/20/16 09/20/16 22:34 22:35 23:27 Temperature 98.2 F Pulse Rate 84 Respiratory 17 17 16 Rate Blood Pressure 183/117 (mmHg) O2 Sat by Pulse Oximetry 09/21/16 09/21/16 09/21/16 03:34 07:52 08:19 Temperature 99.8 F Pulse Rate 94 91 Respiratory 16 16 16 Rate Blood Pressure 184/128 (mmHg) O2 Sat by Pulse 98 98 Oximetry Oxygen Devices in Use Now: Nasal Cannula Appearance: Pleasant, female patient, sitting up in bed, NAD Eyes: PERRLA Ears/Nose/Mouth/Throat: Mucous Membranes Moist Neck: NL Appearance and Movements; NL JVP Respiratory: Symmetrical Chest Expansion and Respiratory Effort, Clear to Auscultation Cardiovascular: NL Sounds; No Murmurs; No JVD, RRR Abdominal: NL Sounds; No Tenderness; No Distention Extremities: No Edema Neurological: Alert and Oriented x 3, NL Gait, NL Muscle Strength and Tone Nutrition: Taking PO's Result Diagrams: 09/20/16 09:07 09/20/16 09:07 Additional Lab and Data: Lab Results 09/19/16 09/19/16 09/19/16 Range/Units 12:42 12:42 12:50 WBC 6.7 (3.5-10.8) 10^3/ul RBC 2.58 L (4.0-5.4) 10^6/ul Hgb 8.4 L (12.0-16.0) g/dl Hct 25 L (35-47) % MCV 96 (80-97) fL MCH 33 H (27-31) pg MCHC 34 (31-36) g/dl RDW 18 H (10.5-15) % Plt Count 152 (150-450) 10^3/ul MPV 8 (7.4-10.4) um3 Immature Gran % (Auto) 1 (0-9) % Absolute Neuts (auto) 4.7 (1.5-7.7) 10^3/ul Absolute Lymphs (auto) 1.1 (1.0-4.8) 10^3/ul Absolute Monos (auto) 0.8 (0-0.8) 10^3/ul Absolute Eos (auto) 0.1 (0-0.6) 10^3/ul Absolute Basos (auto) 0 (0-0.2) 10^3/ul Absolute Nucleated RBC Not Reportable Neutrophils % 69 (38-83) % Lymphocytes % 17 L (25-47) % Monocytes % 12 (0-13) % Eosinophils % 1 (0-6) % Metamyelocytes % 1 (0-2) % Normal RBC Morphology Not Reportable Polychromasia 1+ Basophilic Stippling 1+ Microcytosis 2+ Hem Pathologist Commnt Pending INR (Anticoag Therapy) (0.89-1.11) Sodium 135 (133-145) mmol/L Potassium 3.4 L (3.5-5.0) mmol/L Chloride 91 L (101-111) mmol/L Carbon Dioxide 36 H (22-32) mmol/L Anion Gap 8 (2-11) mmol/L BUN 8 (6-24) mg/dL Creatinine 3.45 H (0.51-0.95) mg/dL Est GFR ( Amer) 18.5 (>60) Est GFR (Non-Af Amer) 14.4 (>60) BUN/Creatinine Ratio 2.3 L (8-20) Glucose 93 (70-100) mg/dL Lactic Acid 0.9 (0.5-2.0) mmol/L Calcium 9.3 (8.6-10.3) mg/dL Total Bilirubin 0.90 (0.2-1.0) mg/dL AST 17 (13-39) U/L ALT 4 L (7-52) U/L Alkaline Phosphatase 64 (34-104) U/L Total Creatine Kinase 78 (10-223) U/L Troponin I 0.05 H* (<0.04) ng/mL C-Reactive Protein 12.59 H (< 5.00) mg/L Total Protein 7.0 (6.4-8.9) g/dL Albumin 4.1 (3.2-5.2) g/dL Globulin 2.9 (2-4) g/dL Albumin/Globulin Ratio 1.4 (1-3) Amylase 74 (29-103) U/L Lipase 57 (11.0-82.0) U/L // Range/Units 12:50 WBC (3.5-10.8) 10^3/ul RBC (4.0-5.4) 10^6/ul Hgb (12.0-16.0) g/dl Hct (35-47) % MCV (80-97) fL MCH (27-31) pg MCHC (31-36) g/dl RDW (10.5-15) % Plt Count (150-450) 10^3/ul MPV (7.4-10.4) um3 Immature Gran % (Auto) (0-9) % Absolute Neuts (auto) (1.5-7.7) 10^3/ul Absolute Lymphs (auto) (1.0-4.8) 10^3/ul Absolute Monos (auto) (0-0.8) 10^3/ul Absolute Eos (auto) (0-0.6) 10^3/ul Absolute Basos (auto) (0-0.2) 10^3/ul Absolute Nucleated RBC Neutrophils % (38-83) % Lymphocytes % (25-47) % Monocytes % (0-13) % Eosinophils % (0-6) % Metamyelocytes % (0-2) % Normal RBC Morphology Polychromasia Basophilic Stippling Microcytosis Hem Pathologist Commnt INR (Anticoag Therapy) 2.16 H (0.89-1.11) Sodium (133-145) mmol/L Potassium (3.5-5.0) mmol/L Chloride (101-111) mmol/L Carbon Dioxide (22-32) mmol/L Anion Gap (2-11) mmol/L BUN (6-24) mg/dL Creatinine (0.51-0.95) mg/dL Est GFR ( Amer) (>60) Est GFR (Non-Af Amer) (>60) BUN/Creatinine Ratio (8-20) Glucose (70-100) mg/dL Lactic Acid (0.5-2.0) mmol/L Calcium (8.6-10.3) mg/dL Total Bilirubin (0.2-1.0) mg/dL AST (13-39) U/L ALT (7-52) U/L Alkaline Phosphatase (34-104) U/L Total Creatine Kinase (10-223) U/L Troponin I (<0.04) ng/mL C-Reactive Protein (< 5.00) mg/L Total Protein (6.4-8.9) g/dL Albumin (3.2-5.2) g/dL Globulin (2-4) g/dL Albumin/Globulin Ratio (1-3) Amylase (29-103) U/L Lipase (11.0-82.0) U/L Diagnostic Imaging: CT abd/pelvis: ATROPHIC KIDNEYS CONSISTENT WITH END-STAGE RENAL DISEASE. BIBASILAR ATELECTASIS WITH SMALL BILATERAL PLEURAL EFFUSIONS LARGER ON THE LEFT THAN ON THE RIGHT. ATHEROSCLEROTIC AORTA IS NOTED WITH ANEURYSMAL DILATATION OF THE LEFT COMMON ILIAC ARTERY MEASURES 2.2 CM. A SMALL TO MODERATE AMOUNT OF FREE FLUID IS NOTED IN THE PELVIS. EKG Data: EKG: LVH, AFib, normal axis, no STEMI Assess/Plan/Problems-Billing Assessment: Ms. Joseph is a 45 yo female with a PMH significant for ESRD, afib, COPD, PE with alveolar hemorrhage, CAD, HTN, HLD, chronic diastolic HF, mitral and aortic valve replacements s/p balloon dilatation to AV, and depression and anxiety who presented to the ED on 09/19/16 with concern for abd pain and diarrhea. - Patient Problems (1) Abdominal pain Code(s): R10.9 - UNSPECIFIED ABDOMINAL PAIN Comment: Several large, formed stools reported with relief in abdominal pain Patient to continue outpatient bowel regimen with recommended diet changes Continue metoclopramide F/u with PCP as needed (2) Chest pain Code(s): R07.9 - CHEST PAIN, UNSPECIFIED Comment: Denies, no further complaints Transient, suspect secondary to anxiety and bowel discomfort Trop 0.05, which is within patient's baseline. No acute ST or T wave changes seen on EKG (3) Atrial fibrillation Code(s): I48.91 - UNSPECIFIED ATRIAL FIBRILLATION Comment: Rate controlled Continue Cardizem and Toprol Continue warfarin 5mg F/u INR next week with PCP f/u (4) End stage renal disease on dialysis Code(s): N18.6 - END STAGE RENAL DISEASE; Z99.2 - DEPENDENCE ON RENAL DIALYSIS Comment: Continue dialysis per nephrology team. Dialysis 09/20 (5) HTN (hypertension) Code(s): I10 - ESSENTIAL (PRIMARY) HYPERTENSION Comment: Hypertensive, likely worsened from excess fluid from Golytely Continue home regimen (6) COPD (chronic obstructive pulmonary disease) Code(s): J44.9 - CHRONIC OBSTRUCTIVE PULMONARY DISEASE, UNSPECIFIED Comment: Stable. Continue Spiriva and PRN nebulizers. (7) History of coronary artery disease Code(s): Z86.79 - PERSONAL HISTORY OF OTHER DISEASES OF THE CIRCULATORY SYSTEM Comment: Continue ASA and beta clara. (8) Aortic valve replaced Current Visit: No Status: Acute Code(s): Z95.2 - PRESENCE OF PROSTHETIC HEART VALVE SNOMED Code(s): 7460887983737 Comment: s/p recent balloon dilitation (9) DVT prophylaxis Code(s): [id number] - Comment: Continue warfarin. Status and Disposition: OBV admit. D/c to home when medically stable.
[2016-09-21] MEDS ORDERED: Metoprolol Tartrate TAB* 25 MG PO ONE (11:12)
[2016-09-21] MEDS ORDERED: amLODIPine TAB* 5 MG PO ONE (11:12)
[2016-09-21] MEDS ORDERED: Polyethylene Glycol 3350* 17 GM PACKET PO SCH (13:00)
[2016-09-21] MEDS ORDERED: cloNIDine 0.2 MG PATCH* 0.2 MG/24 HR 7 DAY PATCH TRANSDERM SCH (15:00)
[2016-09-21] MEDS: hydrALAZINE IV* 20 MG/ML VIAL IV SLOW PU PRN (15:52)
[2016-09-21] MEDS: Warfarin TAB(*) 5 MG PO SCH (16:17)
[2016-09-21] MEDS: ALPRAZolam TAB* 0.25 MG PO PRN (16:17)
--- NOTE | 2016-09-21 17:34 | PN ---
Hospitalist Progress Note Manual BP taken at 192/98. Dr. Osorio consulted regarding poor BP control. He recommends discontinuing the clonidine patch with concern for the side effect profile, stopping her metoprolol and starting labetalol. New orders placed, will continue to monitor.
[2016-09-21] MEDS: Polyethylene Glycol 3350* 17 GM PACKET PO PRN (20:13)
[2016-09-21] MEDS: Pregabalin CAP(*) 50 MG PO SCH (20:29)
[2016-09-21] MEDS: Labetalol TAB* 200 MG PO SCH (20:29)
[2016-09-21] MEDS: Senna TAB PO SCH (20:29)
[2016-09-22] MEDS: hydrALAZINE IV* 20 MG/ML VIAL IV SLOW PU PRN ×2 (00:20→08:09)
[2016-09-22] MEDS: oxyCODONE TAB* 5 MG TAB PO PRN ×2 (00:39→08:23)
[2016-09-22] MEDS: ALPRAZolam TAB* 0.25 MG PO PRN ×2 (00:40→08:24)
--- NOTE | 2016-09-22 07:41 | PN ---
Subjective Date of Service: 09/22/16 Interval History: Patient is very emotional this morning, stating "I just want to go home" and that she didn't sleep well. She states, "I feel fine" and that her blood pressure has been "all messed up" for awhile. She endorses no acute complaints, denying CP, SOB, abd pain, n/v/d. Family History: Unchanged from Admission Social History: Unchanged from Admission Past Medical History: Unchanged from Admission Objective Active Medications: Albuterol (Ventolin 2.5 Mg/3 Ml Neb.Tonya*) 2.5 mg INH Q6H PRN PRN Reason: SOB/WHEEZING Alprazolam (Xanax Tab*) 0.25 mg PO TID PRN PRN Reason: ANXIETY Last Admin: 09/22/16 00:40 Dose: 0.25 mg Amlodipine Besylate (Norvasc Tab*) 10 mg PO DAILY [facility] Aspirin (Aspirin Ec Low Dose*) 81 mg PO DAILY [facility] Last Admin: 09/21/16 07:53 Dose: 81 mg Cinacalcet (Sensipar Tab*) 30 mg PO DAILY [facility] Last Admin: 09/21/16 07:53 Dose: 30 mg Diltiazem HCl (Cardizem Cd Cap*) 240 mg PO DAILY [facility] Last Admin: 09/21/16 07:53 Dose: 240 mg Hydralazine HCl (Apresoline Iv*) 10 mg IV SLOW PU Q6H PRN PRN Reason: BLOOD PRESSURE Last Admin: 09/22/16 00:20 Dose: 10 mg Labetalol HCl (Trandate Tab*) 200 mg PO BID [facility] Last Admin: 09/21/16 20:29 Dose: 200 mg Metoclopramide HCl (Reglan Tab*) 5 mg PO ACHS [facility] Last Admin: 09/21/16 20:29 Dose: 5 mg Morphine Sulfate (Morphine Inj (Syringe)*) 4 mg IV Q4H PRN PRN Reason: PAIN Last Admin: 09/20/16 07:41 Dose: 4 mg Ondansetron HCl (Zofran Inj*) 4 mg IV Q4H PRN PRN Reason: NAUSEA/VOMITING Oxycodone HCl (Roxycodone Tab*) 15 mg PO Q6H PRN PRN Reason: PAIN Last Admin: 09/22/16 00:39 Dose: 15 mg Polyethylene Glycol/Electrolytes (Miralax*) 17 gm PO BID PRN PRN Reason: CONSTIPATION Last Admin: 09/21/16 20:13 Dose: 17 gm Pregabalin (Lyrica Cap(*)) 50 mg PO BEDTIME [facility] Last Admin: 09/21/16 20:29 Dose: 50 mg Senna (Senokot Tab*) 1 tab PO BEDTIME [facility] Last Admin: 09/21/16 20:29 Dose: 1 tab Sevelamer Carbonate (Renvela Tab*) 4,800 mg PO TID WITH MEALS [facility] Last Admin: 09/21/16 16:18 Dose: 4,800 mg Tiotropium [place] (Spiriva Cap.Inh*) 1 cap INH DAILY [facility] Last Admin: 09/21/16 08:17 Dose: 1 cap Warfarin Sodium (Coumadin Tab(*)) 5 mg PO DAILY@1700 GHASSAN PRN Reason: Protocol Last Admin: 09/21/16 16:17 Dose: 5 mg Vital Signs 09/21/16 09/21/16 09/21/16 07:52 08:08 08:19 Temperature 97.3 F Pulse Rate 92 91 Respiratory 16 16 16 Rate Blood Pressure 189/119 (mmHg) O2 Sat by Pulse 99 98 Oximetry 09/21/16 09/21/16 09/21/16 09:52 11:09 13:02 Temperature 98.6 F Pulse Rate 108 Respiratory 16 15 Rate Blood Pressure 190/100 187/124 (mmHg) O2 Sat by Pulse 100 Oximetry 09/21/16 09/21/16 09/21/16 14:15 16:01 16:17 Temperature Pulse Rate 89 Respiratory 16 22 Rate Blood Pressure 197/129 189/124 (mmHg) O2 Sat by Pulse 100 Oximetry 09/21/16 09/21/16 09/21/16 16:22 18:48 19:59 Temperature 98.1 F 98.4 F Pulse Rate 88 85 Respiratory 22 16 Rate Blood Pressure 182/111 179/109 (mmHg) O2 Sat by Pulse 99 Oximetry 09/21/16 09/21/16 09/21/16 20:29 20:48 22:29 Temperature Pulse Rate Respiratory 17 16 19 Rate Blood Pressure (mmHg) O2 Sat by Pulse Oximetry 09/21/16 09/21/16 09/22/16 23:31 23:44 00:39 Temperature 98.5 F Pulse Rate 97 Respiratory 16 16 Rate Blood Pressure 194/130 179/105 (mmHg) O2 Sat by Pulse 100 Oximetry 09/22/16 09/22/16 09/22/16 00:40 02:03 02:39 Temperature 98.4 F Pulse Rate 109 Respiratory 16 18 16 Rate Blood Pressure 182/101 (mmHg) O2 Sat by Pulse 100 Oximetry 09/22/16 02:40 Temperature Pulse Rate Respiratory 16 Rate Blood Pressure (mmHg) O2 Sat by Pulse Oximetry Oxygen Devices in Use Now: Nasal Cannula Appearance: chronically ill appearing female, lying in bed, NAD Eyes: PERRLA Ears/Nose/Mouth/Throat: Mucous Membranes Moist Neck: NL Appearance and Movements; NL JVP Respiratory: Symmetrical Chest Expansion and Respiratory Effort, Clear to Auscultation Cardiovascular: NL Sounds; No Murmurs; No JVD, RRR Abdominal: NL Sounds; No Tenderness; No Distention Extremities: No Edema Skin: No Rash or Ulcers Neurological: Alert and Oriented x 3 Lines/Tubes/Other Access: Clean, Dry and Intact Peripheral IV Nutrition: Taking PO's Result Diagrams: 09/20/16 09:07 09/20/16 09:07 Additional Lab and Data: Lab Results 09/19/16 09/19/16 09/19/16 Range/Units 12:42 12:42 12:50 WBC 6.7 (3.5-10.8) 10^3/ul RBC 2.58 L (4.0-5.4) 10^6/ul Hgb 8.4 L (12.0-16.0) g/dl Hct 25 L (35-47) % MCV 96 (80-97) fL MCH 33 H (27-31) pg MCHC 34 (31-36) g/dl RDW 18 H (10.5-15) % Plt Count 152 (150-450) 10^3/ul MPV 8 (7.4-10.4) um3 Immature Gran % (Auto) 1 (0-9) % Absolute Neuts (auto) 4.7 (1.5-7.7) 10^3/ul Absolute Lymphs (auto) 1.1 (1.0-4.8) 10^3/ul Absolute Monos (auto) 0.8 (0-0.8) 10^3/ul Absolute Eos (auto) 0.1 (0-0.6) 10^3/ul Absolute Basos (auto) 0 (0-0.2) 10^3/ul Absolute Nucleated RBC Not Reportable Neutrophils % 69 (38-83) % Lymphocytes % 17 L (25-47) % Monocytes % 12 (0-13) % Eosinophils % 1 (0-6) % Metamyelocytes % 1 (0-2) % Normal RBC Morphology Not Reportable Polychromasia 1+ Basophilic Stippling 1+ Microcytosis 2+ Hem Pathologist Commnt Pending INR (Anticoag Therapy) (0.89-1.11) Sodium 135 (133-145) mmol/L Potassium 3.4 L (3.5-5.0) mmol/L Chloride 91 L (101-111) mmol/L Carbon Dioxide 36 H (22-32) mmol/L Anion Gap 8 (2-11) mmol/L BUN 8 (6-24) mg/dL Creatinine 3.45 H (0.51-0.95) mg/dL Est GFR ( Amer) 18.5 (>60) Est GFR (Non-Af Amer) 14.4 (>60) BUN/Creatinine Ratio 2.3 L (8-20) Glucose 93 (70-100) mg/dL Lactic Acid 0.9 (0.5-2.0) mmol/L Calcium 9.3 (8.6-10.3) mg/dL Total Bilirubin 0.90 (0.2-1.0) mg/dL AST 17 (13-39) U/L ALT 4 L (7-52) U/L Alkaline Phosphatase 64 (34-104) U/L Total Creatine Kinase 78 (10-223) U/L Troponin I 0.05 H* (<0.04) ng/mL C-Reactive Protein 12.59 H (< 5.00) mg/L Total Protein 7.0 (6.4-8.9) g/dL Albumin 4.1 (3.2-5.2) g/dL Globulin 2.9 (2-4) g/dL Albumin/Globulin Ratio 1.4 (1-3) Amylase 74 (29-103) U/L Lipase 57 (11.0-82.0) U/L / Range/Units 12:50 WBC (3.5-10.8) 10^3/ul RBC (4.0-5.4) 10^6/ul Hgb (12.0-16.0) g/dl Hct (35-47) % MCV (80-97) fL MCH (27-31) pg MCHC (31-36) g/dl RDW (10.5-15) % Plt Count (150-450) 10^3/ul MPV (7.4-10.4) um3 Immature Gran % (Auto) (0-9) % Absolute Neuts (auto) (1.5-7.7) 10^3/ul Absolute Lymphs (auto) (1.0-4.8) 10^3/ul Absolute Monos (auto) (0-0.8) 10^3/ul Absolute Eos (auto) (0-0.6) 10^3/ul Absolute Basos (auto) (0-0.2) 10^3/ul Absolute Nucleated RBC Neutrophils % (38-83) % Lymphocytes % (25-47) % Monocytes % (0-13) % Eosinophils % (0-6) % Metamyelocytes % (0-2) % Normal RBC Morphology Polychromasia Basophilic Stippling Microcytosis Hem Pathologist Commnt INR (Anticoag Therapy) 2.16 H (0.89-1.11) Sodium (133-145) mmol/L Potassium (3.5-5.0) mmol/L Chloride (101-111) mmol/L Carbon Dioxide (22-32) mmol/L Anion Gap (2-11) mmol/L BUN (6-24) mg/dL Creatinine (0.51-0.95) mg/dL Est GFR ( Amer) (>60) Est GFR (Non-Af Amer) (>60) BUN/Creatinine Ratio (8-20) Glucose (70-100) mg/dL Lactic Acid (0.5-2.0) mmol/L Calcium (8.6-10.3) mg/dL Total Bilirubin (0.2-1.0) mg/dL AST (13-39) U/L ALT (7-52) U/L Alkaline Phosphatase (34-104) U/L Total Creatine Kinase (10-223) U/L Troponin I (<0.04) ng/mL C-Reactive Protein (< 5.00) mg/L Total Protein (6.4-8.9) g/dL Albumin (3.2-5.2) g/dL Globulin (2-4) g/dL Albumin/Globulin Ratio (1-3) Amylase (29-103) U/L Lipase (11.0-82.0) U/L Diagnostic Imaging: CT abd/pelvis: ATROPHIC KIDNEYS CONSISTENT WITH END-STAGE RENAL DISEASE. BIBASILAR ATELECTASIS WITH SMALL BILATERAL PLEURAL EFFUSIONS LARGER ON THE LEFT THAN ON THE RIGHT. ATHEROSCLEROTIC AORTA IS NOTED WITH ANEURYSMAL DILATATION OF THE LEFT COMMON ILIAC ARTERY MEASURES 2.2 CM. A SMALL TO MODERATE AMOUNT OF FREE FLUID IS NOTED IN THE PELVIS. EKG Data: EKG: LVH, AFib, normal axis, no STEMI Assess/Plan/Problems-Billing Assessment: Ms. Joseph is a 45 yo female with a PMH significant for ESRD, afib, COPD, PE with alveolar hemorrhage, CAD, HTN, HLD, chronic diastolic HF, mitral and aortic valve replacements s/p balloon dilatation to AV, and depression and anxiety who presented to the ED on 09/19/16 with concern for abd pain and diarrhea. - Patient Problems (1) HTN (hypertension) Code(s): I10 - ESSENTIAL (PRIMARY) HYPERTENSION Comment: Hypertensive, likely worsened from excess fluid from Golytely Discussed patient's BP with Dr. Osorio yesterday, who recommended discontinuing her metoprolol and starting labetalol. Continue labetalol, amlodipine, and diltiazem. (2) Abdominal pain Code(s): R10.9 - UNSPECIFIED ABDOMINAL PAIN Comment: Several large, formed stools reported with relief in abdominal pain Patient to continue outpatient bowel regimen with recommended diet changes Continue metoclopramide F/u with PCP as needed (3) Chest pain Code(s): R07.9 - CHEST PAIN, UNSPECIFIED Comment: Denies, no further complaints Transient, suspect secondary to anxiety and bowel discomfort Trop 0.05, which is within patient's baseline. No acute ST or T wave changes seen on EKG (4) Atrial fibrillation Code(s): I48.91 - UNSPECIFIED ATRIAL FIBRILLATION Comment: Rate controlled Continue Cardizem and Toprol INR supratherapeutic, give 1 mg tonight and recheck tomorrow (5) End stage renal disease on dialysis Code(s): N18.6 - END STAGE RENAL DISEASE; Z99.2 - DEPENDENCE ON RENAL DIALYSIS Comment: Continue dialysis per nephrology team. Last dialysis 09/20 (6) COPD (chronic obstructive pulmonary disease) Code(s): J44.9 - CHRONIC OBSTRUCTIVE PULMONARY DISEASE, UNSPECIFIED Comment: Stable. Continue Spiriva and PRN nebulizers. (7) History of coronary artery disease Code(s): Z86.79 - PERSONAL HISTORY OF OTHER DISEASES OF THE CIRCULATORY SYSTEM Comment: Continue ASA and beta clara. (8) Aortic valve replaced Current Visit: No Status: Acute Code(s): Z95.2 - PRESENCE OF PROSTHETIC HEART VALVE SNOMED Code(s): 7989841291002 Comment: s/p recent balloon dilitation (9) DVT prophylaxis Code(s): QFQ8326 - Comment: Continue warfarin. Status and Disposition: Inpatient admit. D/c to home when medically stable.
[2016-09-22] MEDS: Sevelamer TAB* 800 MG PO SCH ×2 (08:08→12:03)
[2016-09-22] MEDS: Aspirin EC Low Dose* 81 MG TAB.EC PO SCH (08:08)
[2016-09-22] MEDS: Labetalol TAB* 200 MG PO SCH (08:08)
[2016-09-22] MEDS: Cinacalcet TAB* 30 MG PO SCH (08:08)
[2016-09-22] MEDS: Diltiazem CD CAP* 240 MG PO SCH (08:08)
[2016-09-22] MEDS: Metoclopramide TAB* 10 MG PO SCH ×2 (08:23→12:03)
[2016-09-22] MEDS: Polyethylene Glycol 3350* 17 GM PACKET PO PRN (08:24)
[2016-09-22] MEDS: Tiotropium CAP.INH* CAP.INH/18 MCG INH SCH (08:30)
[2016-09-22] MEDS ORDERED: amLODIPine TAB* 5 MG PO SCH (09:00)
[2016-09-22 12:02] VITALS: BP 180/108
[2016-09-22] MEDS ORDERED: Warfarin TAB(*) 1 MG PO ONE (17:00)
--- NOTE | 2016-09-23 00:37 | DS ---
MEDICINE DISCHARGE SUMMARY: DATE OF ADMISSION: 09/19/16 DATE OF DISCHARGE: 09/22/16 PROVIDER: Sony Fuller NP ATTENDING PHYSICIAN: Chioma Crockett MD * (as dictated by Sony Fuller NP) CONSULTING PHYSICIAN: Franck Osorio MD PRIMARY CARE PROVIDER: Diogo Burns MD PRIMARY DISCHARGE DIAGNOSES: 1. Constipation with overflow diarrhea. 2. Abdominal pain. 3. Uncontrolled high blood pressure. SECONDARY DISCHARGE DIAGNOSES: 1. End-stage renal disease, on hemodialysis. 2. Chronic obstructive pulmonary disease. 3. Atrial fibrillation, anticoagulated on Coumadin. 4. History of complicated PE with alveolar hemorrhage. 5. Hypertension. 6. Hyperlipidemia. 7. Coronary artery disease. 8. Chronic diastolic heart failure. 9. Mitral and aortic valve replacements with recent balloon dilatation of the aortic valve. 10. Depression and anxiety. MEDICATIONS AT DISCHARGE: 1. Warfarin 5 mg daily. The patient was instructed to hold dose on Friday, , and have followup INR on 09/23/16, as she had a supratherapeutic INR prior to discharge. 2. Diltiazem CD 240 mg daily. 3. Sensipar 30 mg daily. 4. Amlodipine 5 mg daily. 5. Atorvastatin 80 mg daily. 6. Aspirin 81 mg daily. 7. Albuterol 2.5 mg inhaled q.6 hours p.r.n. 8. Spiriva 1 capsule inhaled daily. 9. Renvela 4800 mg t.i.d. 10. Lyrica 50 mg at bedtime. 11. Reglan 5 mg a.c. and at bedtime. 12. Alprazolam 0.25 mg t.i.d. p.r.n. 13. Percocet 1 tab q.6 hours p.r.n. The patient was given a 5-day supply. I did I-STOP the patient as she did receive a previous prescription at discharge earlier this week that she stated she used secondary to acute pain between the time of her last discharge and this admission. The patient was instructed to follow up with her PCP for further prescriptions following this discharge. 14. Labetalol 200 mg b.i.d. This is a new medication, replacing the patient's previous metoprolol. HOSPITAL COURSE OF STAY: For full details, please refer to the H and P provided by Carlos Eduardo Mccrary PA-C. In summary, Ms. Joseph is a 45-year-old female who was discharged 3 days prior to this most recent admission. At that time, she had complained of abdominal pain that appeared to be most likely related to constipation. The patient had a chronic component. It was felt that she may have some gastroparesis that maybe contributing to her complaints of abdominal pain and constipation. The patient did have a large bowel movement prior to discharge of that admission as she was discharged with a prescription for Reglan. The patient states that after returning home, she continued to have diarrhea and then, her abdominal pain returned. She used her prescribed Percocet to treat the pain, but she continued to have loose bowel movements. She did not pick and shovel man her Reglan. She did receive an additional evaluation, which included a CT of the abdomen and pelvis, which demonstrated a colon that was filled with stool, but no other acute pathology. Her stomach appeared to be of normal size. She was admitted with suspected constipation with overflow diarrhea. The patient was started on senna and GoLYTELY and restarted back on the Reglan to help with suspected gastroparesis. During her stay, the patient did take the GoLYTELY but did not have much effect the first day; however, she did report having 3 large bowel movements overnight from 09/20/16 to 09/21/16 that had formed stool and reported a significant improvement in her abdominal pain and distension as well as her nausea and vomiting. She was able to be transitioned back to a regular renal diet. In discussion, she did report that she usually has a bowel movement perhaps only once a week, sometimes up to 10 days in between bowel movements. We discussed using a bowel regimen as well as making changes to her diet in order to help facilitate more frequent bowel movements. She states that she already has Dulcolax stool softeners and MiraLAX at home, which she will continue to use. We did attempt to discharge the patient on 09/21/16; however, her blood pressure has been notably elevated with systolics in the 190s and 200s and diastolics up in the 120s to 130s. There is a suspicion that the patient's bowel prep may have contributed to some fluid overload. In spite of multiple doses of hydralazine, the patient's blood pressure did not improve much. I did discuss this with Dr. Osorio who recommended starting the patient on labetalol in the place of her metoprolol. This was done and the following day, the patient's blood pressure did improve. Of note, the medical record does still recorded several blood pressures with diastolics in the 100s and the systolic pressures in the 180s and 190s. However, I did personally check the blood pressures manually and just before discharge, the patient did have a noted blood pressure of 170/96 in one arm and 169/94 in the other arm. The patient was instructed to follow up with her PCP and with Dr. Osorio to evaluate further blood pressure control. The patient was offered to stay until tomorrow for further medication titration and monitoring and so she could have her dialysis here, but she did request to go home due to personal issues. Her blood pressures were better controlled, and we did feel that this would be okay , as she is returning to the hospital tomorrow for dialysis. Additionally, her INR on 09/22/16 was 3.67. I did instruct the patient to hold her warfarin dose this evening and to have an INR drawn tomorrow. A script was given. She states that she could have this at dialysis. She is to check in with her PCP to determine whether or not she should continue either her current dose of warfarin or take a reduced dose. The patient verbalized understanding of all these instructions. She was given a prescription for labetalol. Again, I did perform an I-STOP search and it appears that the patient did fill the prescription that was given by JONATHON Magana; however, she states that she did take most of that prescription during this past week when she had increased abdominal pain. I did discuss with the patient that I would be unable to provide her with a full prescription , but I would be willing to provide her with additional 5 days. However, she was notified that she would need to follow up with her PCP for any further prescriptions for narcotics at this time. She did verbalize understanding of this. She will have dialysis tomorrow as previously scheduled with an INR drawn outpatient followup for her Coumadin dosing. CONCERNS AT DISCHARGE: Juany Joseph was discharged to home on 09/22/16 with outpatient follow up with Agustin Mcginnis and Dr. Burns's office. DIET: Renal diet. ACTIVITY: As tolerated. CONDITION: Stable. DISPOSITION: To home. TIME SPENT: Time spent on this discharge was approximately 50 minutes. Again, this is only a brief summary of the patient's hospital course of stay. For full details, please refer to the full medical record. If you have any further questions or need further assistance, please feel free to contact me at . SONY FULLER NP CC: Diogo Burns MD* [id number]/CPS #: [id number]
[2016-09-23] MEDS ORDERED: Warfarin TAB(*) 5 MG PO SCH (17:00)
== END 2016-09-22 13:20 | disposition home or self-care (01) | DRG 291 ==
LOC: ED 12:18 → MED 16:21 → OBSVTOIN 09-21 07:41
PROVIDERS: ADMIT Hospitalist; ATTEND Internal Medicine
PROC: 5A1D00Z (ICD-10-PCS; principal; 2016-09-20)
DX: I13.2 Hypertensive heart and chronic kidney disease with heart failure and with stage 5 chronic kidney disease, or end stage renal disease (principal); N18.6 End stage renal disease; J90 Pleural effusion, not elsewhere classified; K31.84 Gastroparesis; I25.810 Atherosclerosis of coronary artery bypass graft(s) without angina pectoris; I50.32 Chronic diastolic (congestive) heart failure; J98.11 Atelectasis; K59.09 Other constipation; R19.7 Diarrhea, unspecified; Z99.2 Dependence on renal dialysis; Z95.1 Presence of aortocoronary bypass graft; J44.9 Chronic obstructive pulmonary disease, unspecified; I48.91 Unspecified atrial fibrillation; Z79.01 Long term (current) use of anticoagulants; E78.5 Hyperlipidemia, unspecified; F32.9 Major depressive disorder, single episode, unspecified; F41.9 Anxiety disorder, unspecified; Z95.2 Presence of prosthetic heart valve; Z79.82 Long term (current) use of aspirin; Z79.891 Long term (current) use of opiate analgesic; Z79.899 Other long term (current) drug therapy; F17.210 Nicotine dependence, cigarettes, uncomplicated; Z86.718 Personal history of other venous thrombosis and embolism; Z86.711 Personal history of pulmonary embolism
CPT/HCPCS: 36415; 74176; 80053; 82150; 82550; 83605; 83690; 84484; 85025; 85060; 85610; 86140; 90935; 93005; 94640; 94760; 96374; 96376; A9270-GY; G0257; G0378; J0360; J0885; J1170; J2060; J2270

== ENCOUNTER 2016-10-10 20:13 | Inpatient (IN) | payer MEDICARE, MEDICAID ==
[2016-10-10] MEDS ORDERED: Morphine INJ* 4 MG/ML 1 ML SYRINGE IV ONE ×2 (21:07→22:11)
[2016-10-10 21:19] LABS: Hematocrit 22 % (35-47); Hemoglobin 7.2 g/dl (12.0-16.0); Mean Corpuscular HGB Conc 33 g/dl (31-36); Mean Corpuscular Hemoglobin 33 pg (27-31); Mean Corpuscular Volume 98 fL (80-97); Mean Platelet Volume 10 um3 (7.4-10.4); Red Cell Distribution Width 16 % (10.5-15); White Blood Count 7.3 10^3/ul (3.5-10.8)
[2016-10-10 21:39] LABS: Troponin I 0.06 ng/mL (<0.04)
[2016-10-10 21:40] LABS: Albumin 3.9 g/dL (3.2-5.2); BUN/Creatinine Ratio 3.9 (8-20); Calcium 9.6 mg/dL (8.6-10.3); EGFR African American 14.2 (>60); Globulin 2.7 g/dL (2-4); Potassium 3.3 mmol/L (3.5-5.0); Total Bilirubin 0.6 mg/dL (0.2-1.0); Total Protein 6.6 g/dL (6.4-8.9)
[2016-10-10] MEDS ORDERED: Ondansetron INJ* 2 MG/ML VIAL IV ONE (21:45)
--- NOTE | 2016-10-10 22:28 | RAD ---
Indication: Chest pain. Single frontal view of the chest performed at 2126 hours was reviewed. Comparison is made with previous exam dated September 11, 2016. Cardiomegaly is noted. Interstitial edema consistent with vascular congestion is noted. Patient is status post tracer thoracotomy. IMPRESSION: CARDIOMEGALY WITH INTERSTITIAL EDEMA CONSISTENT WITH CHF.
--- NOTE | 2016-10-10 22:53 | HP ---
H&P (Free Text) History and Physical: PCP: Inna Osorio MD Date/Time of Evaluation: 10/10/2016 2300 CC: chest pain HPI: Mrs Joseph is s 45YO female HX COPD, ESRD-HD, mitral & aortic valve replacements, endocarditis, & CAD who reports harsh dry cough for the past few days with onset of mild chest pain 10/09/2016 around 1800 which acutely worsened this evening becoming 10/10 associated with SOB, N/V, palpitations, light-headedness, sweating, subjective F/C, & diarrhea. Pain is worse with deep inspiration and movement. It is reproducible to light palpation. ECG is unchanged from previous. Troponin is 0.06 which is her baseline. CXR is similar to comparison. Vitals are hypertensive. PMedHx ESRD-HD DVT/PE complicated by alveolar hemorrhage porcine aortic & mitral valve replacements COPD CAD/NH chronic diastolic HF AFIB endocarditis superior vena cava syndrome anemia of renal disease HTN HLD depression/anxiety Ambulatory Orders Pregabalin CAP(*) [Lyrica CAP(*)] 50 mg PO BEDTIME 05/09/16 ALPRAZolam TAB* [Xanax TAB*] 0.25 mg PO TID PRN 07/26/16 Albuterol 2.5MG/3ML (0.083%)* [Ventolin 2.5 MG/3 ML NEB.GISELA*] 2.5 mg INH Q6H PRN 07/27/16 Sevelamer TAB* [Renvela TAB*] 4,800 mg PO TID 07/27/16 Tiotropium CAP.INH* [Spiriva CAP.INH*] 1 cap.inh INH DAILY 07/27/16 Aspirin EC Low Dose* [Ecotrin EC Low Dose 81 MG*] 81 mg PO DAILY tab.ec Atorvastatin* [Lipitor 80 MG*] 80 mg PO 1700 #30 tab 07/30/16 Cinacalcet TAB* [Sensipar TAB*] 30 mg PO DAILY #30 tab 07/30/16 Diltiazem CD CAP* [Cardizem CD CAP*] 240 mg PO DAILY #30 cap.cd 07/30/16 Warfarin TAB(*) [Coumadin TAB(*)] 5 mg PO DAILY@1700 tab 07/30/16 Metoclopramide HCl [Reglan] 5 mg PO ACHS #120 tab 09/16/16 Oxycodone HCl 15 mg PO Q6H PRN 09/19/16 amLODIPine TAB* [Norvasc 5 mg TAB*] 5 mg PO DAILY 09/19/16 Labetalol TAB* [Trandate TAB*] 200 mg PO BID #180 tab 09/22/16 oxyCODONE/Acetamin 5/325 MG* [Percocet 5/325 TAB*] 1 tab PO Q6H PRN #20 tab MDD 4 09/22/16 Allergies Iodixanol [From Visipaque] Allergy (Severe, Verified 09/25/16 09:51) Airway Obstruction Angioedema of tongue, upper airway Lisinopril Allergy (Severe, Verified 09/25/16 09:51) Difficulty Breathing Penicillins Allergy (Severe, Verified 09/25/16 09:51) HIVES,SWELLING THROAT Cephalosporins Allergy (Verified 09/25/16 09:51) not specified PSurgHx CABG porcine MVR & AVR hysterectomy knee arthroscopies SocHx: social smoker, denies alcohol and recreational drug HX; lives with her children; on disability; full code status FamHx: reviewed, non-contributory ROS: as above, otherwise reviewed and all were negative Constitutional: NAD, normally developed, overweight black female vitals: Vital Signs Temp 37.3 C 10/10/16 21:16 Pulse 112 10/10/16 21:16 Resp 20 10/10/16 23:07 BP 174/112 10/10/16 21:16 Pulse Ox 95 10/10/16 21:16 Intake & Output 10/10/16 10/10/16 10/11/16 11:59 23:59 11:59 Weight 85.275 kg HEENM: atraumatic; sclera/conjunctiva: non-icteric/mildly injected OU; hearing: clinically intact; oropharynx: clear, mucosa moist Neck: soft tissue: non-tender; thyroid: no mass or tenderness Pulmonary: clear to auscultation bilaterally, fair to good aeration, no accessory muscle use CV: IR/IR, normal S1S2, no carotid bruit, no jugular venous distention, 2+ B DP/ PT, no edema Abdominal: soft, non-distended, non-tender, no rebound/guarding/rigidity, normoactive bowel sounds, no hepatosplenomegaly or masses, no costovertebral angle tenderness Musculoskeletal: general: grossly intact, diffuse reproducible chest wall pain with light palpation worst in the L lateral chest overlying ribs; gait: stable Integumental: normal appearance and texture of exposed skin Psychiatric orientation: AA&O to PPS affect: anxious mood: cooperative eye contact: fair content: reliable responses: timely insight: fair to poor Testing: Lab Results 10/10/16 10/10/16 10/10/16 Range/Units 20:46 20:46 20:46 WBC 7.3 (3.5-10.8) 10^3/ul RBC 2.20 L (4.0-5.4) 10^6/ul Hgb 7.2 L (12.0-16.0) g/dl Hct 22 L (35-47) % MCV 98 H (80-97) fL MCH 33 H (27-31) pg MCHC 33 (31-36) g/dl RDW 16 H (10.5-15) % Plt Count 176 (150-450) 10^3/ul MPV 10 (7.4-10.4) um3 Neut % (Auto) 68.3 (38-83) % Lymph % (Auto) 14.1 L (25-47) % [place] % (Auto) 15.2 H (1-9) % Eos % (Auto) 1.4 (0-6) % Baso % (Auto) 1.0 (0-2) % Absolute Neuts (auto) 5.0 (1.5-7.7) 10^3/ul Absolute Lymphs (auto) 1.0 (1.0-4.8) 10^3/ul Absolute Monos (auto) 1.1 H (0-0.8) 10^3/ul Absolute Eos (auto) 0.1 (0-0.6) 10^3/ul Absolute Basos (auto) 0.1 (0-0.2) 10^3/ul Absolute Nucleated RBC 0.01 10^3/ul Nucleated RBC % 0.2 Sodium 140 (133-145) mmol/L Potassium 3.3 L (3.5-5.0) mmol/L Chloride 91 L (101-111) mmol/L Carbon Dioxide 41 H* (22-32) mmol/L Anion Gap 8 (2-11) mmol/L BUN 17 (6-24) mg/dL Creatinine 4.34 H (0.51-0.95) mg/dL Est GFR ( Amer) 14.2 (>60) Est GFR (Non-Af Amer) 11.0 (>60) BUN/Creatinine Ratio 3.9 L (8-20) Glucose 94 (70-100) mg/dL Lactic Acid 0.9 (0.5-2.0) mmol/L Calcium 9.6 (8.6-10.3) mg/dL Total Bilirubin 0.60 (0.2-1.0) mg/dL AST 18 (13-39) U/L ALT 11 (7-52) U/L Alkaline Phosphatase 73 (34-104) U/L Troponin I 0.06 H* (<0.04) ng/mL Total Protein 6.6 (6.4-8.9) g/dL Albumin 3.9 (3.2-5.2) g/dL Globulin 2.7 (2-4) g/dL Albumin/Globulin Ratio 1.4 (1-3) ECG, personally reviewed: AFIB rate 102, T-wave inversion V6, unchanged from comparison CXR, personally reviewed: IMPRESSION: CARDIOMEGALY WITH INTERSTITIAL EDEMA CONSISTENT WITH CHF. Impression: 45F with complex PMedHX as above presents with chest pain and nearly vizcaino-positive review of systems DIAGNOSIS & PLAN Primary chest pain r/o ACS, more likely chest wall pain from coughing : telemetry : trend troponin : pain control : supplemental oxygen : aspirin reportedly given by EMS : continue labetalol once reconciled : benzonatate PRN : supportive care Secondary COPD, no wheeze, fair to good aeration, not in exacerbation : albuterol nebs : mometasone/formoterol : tiotriopium : continue montelukast once reconciled : incentive spirometry : smoking cessation AFIB : continue warfarin & diltiazem once reconciled ESRD-HD () : continue sevelamer & cinacalcet once reconciled anemia of renal disease : monitor periodically HTN : continue labetalol, amlodipine & diltiazem once reconciled HLD : continue atorvastatin once reconciled : heart healthy diet CAD/NH : continue aspirin once reconciled chronic diastolic HF : daily weights : strict I&Os : heart healthy diet anxiety : continue alprazolam once reconciled HX DVT/PE : continue warfarin once reconciled Admission Rational: observation for r/o ACS DVTp: warfarin Code Status: full
--- NOTE | 2016-10-10 23:23 | ED ---
Brent Greenwood Alok, scribed for Jacques Cutler MD on 10/10/16 at 2110 . HPI Chest Pain - HPI Summary HPI Summary: 45F presents to the ED with left-sided chest pain starting under her left arm and radiating to her left anterior chest since yesterday. Pt states this pain which began yesterday worsened tonight prompting her visit to the ED. Pt describes this pain as a squeezing, sharp pain accompanied by SOB and dyspnea. Her CP is aggravated by movement, palpation, sitting up, and laying down. Pt notes difficulty sleeping due to pain. Pt has taken no other medications besides her regular HTN/CAD meds. PMHx includes HTN, CAD, and cardiac stent. - History of Current Complaint Chief Complaint: EDChestWallPain Time Seen by Provider: 10/10/16 20:50 Hx Obtained From: Patient Onset/Duration: Started Days Ago, Atraumatic, Still Present, Worse Since - tonight Timing: Constant Initial Severity: Moderate Current Severity: Moderate Pain Intensity: 10 Pain Scale Used: 0-10 Numeric Chest Pain Location: Discrete at:, Left Anterior Chest Pain Radiates: Yes Chest Pain Radiates To:: Flank - left Character: Pressure/Squeezing, Sharp/Stabbing Aggravating Factor(s): Position, Movement, Deep Breaths, Other: - palpation Alleviating Factor(s): Nothing Associated Signs and Symptoms: Positive: Chest Pain, Shortness of Breath, Other : - dyspnea - Additional Pertinent History Primary Care Physician: JOHN - Allergy/Home Medications Allergies/Adverse Reactions: Allergies Allergy/AdvReac Type Severity Reaction Status Date / Time Iodixanol [From Visipaque] Allergy Severe Airway Verified 09/25/16 09:51 Obstruction Lisinopril Allergy Severe Difficulty Verified 09/25/16 09:51 Breathing Penicillins Allergy Severe HIVES,SWELLING Verified 09/25/16 09:51 THROAT Cephalosporins Allergy not Verified 09/25/16 09:51 specified PMH/Surg Hx/FS Hx/Imm Hx Endocrine/Hematology History: Reports: Hx Anticoagulant Therapy, Hx Blood Transfusions, Hx Unexplained Bleeding Denies: Hx Blood Disorders, Hx Bone Marrow Disease, Hx Diabetes, Hx Systemic Lupus Erythematosus, Hx Sickle Cell Disease, Hx Thyroid Disease, Hx Anemia, Other Endocrine/Hematological Disorders Cardiovascular History: Reports: Hx Cardiomegaly, Hx Congestive Heart Failure, Hx Coronary Artery Disease, Hx Deep Vein Thrombosis, Hx Hypercholesterolemia, Hx Hypertension, Hx Valvular Heart Disease, Other Cardiovascular Problems/ Disorders - 2 artificial heart valves; Hx of endocarditis Denies: Hx Aneurysm, Hx Angina, Hx Angioplasty, Hx Auto Implanted Cardiovert Defib, Hx Cardiac Arrest, Hx Congenital Heart Disease, Hx Embolism, Hx Hypotension, Hx Pacemaker/ICD, Hx Peripheral Vascular Disease, Hx Rheumatic Fever, Hx Syncope Respiratory History: Reports: Hx Asthma, Hx Chronic Obstructive Pulmonary Disease (COPD), Hx Pneumonia, Hx Pulmonary Edema, Hx Pulmonary Embolism, Other Respiratory Problems/Disorders - PULMONARY EDEMA Denies: Hx Chronic Bronchitis, Hx Cystic Fibrosis, Hx Lung Cancer, Hx Pleural Effusion, Hx Seasonal Allergies, Hx Sleep Apnea History: Reports: Hx Chronic Renal Failure, Hx Dialysis - ESRD, [place] ON Fri, Hx Renal Disease Denies: Hx Benign Prostatic Hyperplasia, Hx Kidney Infection, Hx Kidney Stones, Other Problems/Disorders Musculoskeletal History: Reports: Hx Arthritis Denies: Hx Back Problems, Hx Bursitis, Hx Congenital Bone Abnormalities, Hx Fibromyalgia, Hx Gout, Hx Orthopedic Injury, Hx Osteoporosis, Hx Scoliosis, Hx Tendonitis, Other Musculoskeletal History Sensory History: Reports: Hx Contacts or Glasses Denies: Hx Hearing Aid Opthamlomology History: Reports: Hx Contacts or Glasses Neurological History: Denies: Hx Seizures Psychiatric History: Reports: Hx Anxiety, Hx Depression Denies: Hx Attention Deficit Hyperactivity Disorder, Hx Eating Disorder, Hx Panic Disorder, Hx Post Traumatic Stress Disorder, Hx Inpatient Treatment, Hx Community Mental Health Tx, Hx Schizophrenia, Hx Bipolar Disorder, Hx Suicide Attempt, Hx of Violent Episodes Against Others, Hx Substance Abuse, Other Psychiatric Issues/Disorders - Surgical History Surgery Procedure, Year, and Place: bilateral knees, dialysis tube placed in abdomen( out), fistula tube placement in arm for dialysis Lt arm has been revised. waiting out ok to use [id number], open heart valve replacement, hysterectomy Hx Anesthesia Reactions: No - Immunization History Date of Tetanus Vaccine: Unk Date of Influenza Vaccine: Unk Infectious Disease History: Yes Infectious Disease History: Reports: Hx of Known/Suspected MRSA - Negative Denies: Hx Clostridium Difficile, Hx Hepatitis, Hx Human Immunodeficiency Virus (HIV), Hx Shingles, Hx Tuberculosis, Hx Known/Suspected VRE, Traveled Outside the [place] in Last 30 Days - Family History Known Family History: Positive: Hypertension - Mother, Diabetes - Mother, Other Family History: Father -- Lung CA - Social History Occupation: Disabled Alcohol Use: None Hx Substance Use: No Substance Use Type: Reports: None Hx Tobacco Use: Yes Smoking Status (MU): Former Smoker Type: Cigarettes Amount Used/How Often: 1/2 PPD Length of Time of Smoking/Using Tobacco: 15 Have You Smoked in the Last Year: Yes Review of Systems Negative: Fever Positive: Chest Pain Positive: Shortness Of Breath, Other - dyspnea All Other Systems Reviewed And Are Negative: Yes Physical Exam Triage Information Reviewed: Yes Vital Signs On Initial Exam: Initial Vitals Temp Pulse Resp BP Pulse Ox 99.4 F 97 16 183/118 90 10/10/16 20:40 10/10/16 20:40 10/10/16 20:40 10/10/16 20:40 10/10/16 20:40 Vital Signs Reviewed: Yes Appearance: Positive: Well-Appearing, Pain Distress Skin: Positive: Warm, Skin Color Reflects Adequate Perfusion, Dry Head/Face: Positive: Normal Head/Face Inspection Eyes: Positive: Normal ENT: Positive: Normal ENT inspection Neck: Positive: Supple, Nontender Respiratory/Lung Sounds: Positive: Clear to Auscultation, Breath Sounds Present Cardiovascular: Positive: Murmur - Very loud systolic addiction murmur, Other - left anterior lateral chest wall very tender Abdomen Description: Positive: Nontender, Soft Bowel Sounds: Positive: Present Musculoskeletal: Positive: Other - left anterior lateral chest wall very tender Neurological: Positive: Normal Psychiatric: Positive: Normal, Affect/Mood Appropriate - [place] Coma Scale Coma Scale Total: 15 Diagnostics - Vital Signs Vital Signs Temp Pulse Resp BP Pulse Ox 10/10/16 20:40 99.4 F 97 16 183/118 90 - Laboratory Lab Results: Lab Results 10/10/16 10/10/16 10/10/16 Range/Units 20:46 20:46 20:46 WBC 7.3 (3.5-10.8) 10^3/ul RBC 2.20 L (4.0-5.4) 10^6/ul Hgb 7.2 L (12.0-16.0) g/dl Hct 22 L (35-47) % MCV 98 H (80-97) fL MCH 33 H (27-31) pg MCHC 33 (31-36) g/dl RDW 16 H (10.5-15) % Plt Count 176 (150-450) 10^3/ul MPV 10 (7.4-10.4) um3 Neut % (Auto) 68.3 (38-83) % Lymph % (Auto) 14.1 L (25-47) % Schleicher % (Auto) 15.2 H (1-9) % Eos % (Auto) 1.4 (0-6) % Baso % (Auto) 1.0 (0-2) % Absolute Neuts (auto) 5.0 (1.5-7.7) 10^3/ul Absolute Lymphs (auto) 1.0 (1.0-4.8) 10^3/ul Absolute Monos (auto) 1.1 H (0-0.8) 10^3/ul Absolute Eos (auto) 0.1 (0-0.6) 10^3/ul Absolute Basos (auto) 0.1 (0-0.2) 10^3/ul Absolute Nucleated RBC 0.01 10^3/ul Nucleated RBC % 0.2 Sodium 140 (133-145) mmol/L Potassium 3.3 L (3.5-5.0) mmol/L Chloride 91 L (101-111) mmol/L Carbon Dioxide 41 H* (22-32) mmol/L Anion Gap 8 (2-11) mmol/L BUN 17 (6-24) mg/dL Creatinine 4.34 H (0.51-0.95) mg/dL Est GFR ( Amer) 14.2 (>60) Est GFR (Non-Af Amer) 11.0 (>60) BUN/Creatinine Ratio 3.9 L (8-20) Glucose 94 (70-100) mg/dL Lactic Acid 0.9 (0.5-2.0) mmol/L Calcium 9.6 (8.6-10.3) mg/dL Total Bilirubin 0.60 (0.2-1.0) mg/dL AST 18 (13-39) U/L ALT 11 (7-52) U/L Alkaline Phosphatase 73 (34-104) U/L Troponin I 0.06 H* (<0.04) ng/mL Total Protein 6.6 (6.4-8.9) g/dL Albumin 3.9 (3.2-5.2) g/dL Globulin 2.7 (2-4) g/dL Albumin/Globulin Ratio 1.4 (1-3) Result Diagrams: 10/10/16 20:46 10/10/16 20:46 Lab Statement: Any lab studies that have been ordered have been reviewed, and results considered in the medical decision making process. - Radiology CXR Xray Interpretation: Positive (See Comments) - IMPRESSION: CARDIOMEGALY WITH INTERSTITIAL EDEMA CONSISTENT WITH CHF. Radiology Interpretation Completed By: Radiologist - EKG 2042 Cardiac Rate: NL - 102 bpm EKG Rhythm: Sinus Rhythm ST Segment: Non-Specific - changes EKG Comparison: No Significant Change - From 09/20/16 Chest Pain Course/Dx - Course Course Of Treatment: Ms. Joseph has had about a day of left sided chest pain that has worsened in the last few hours and has significant history and risk factors. - Diagnoses Provider Diagnoses: Chest pain - Provider Notifications Discussed Care Of Patient With: Dr. Delgado (Hospitalist) @ [id number] - Will admit pt. Dr. Danielson (Interventionalist) @ 2233 - Discussed pt hx and condition Discharge - Discharge Plan Condition: Stable Disposition: ADMITTED TO [facility] documentation as recorded by the Brent sosa Alok accurately reflects the service I personally performed and the decisions made by me, Jacques Cutler MD.
[2016-10-11] MEDS ORDERED: Albuterol 2.5 MG/3 ML NEB.SOL* (0.083%) INH PRN (00:55)
[2016-10-11] MEDS ORDERED: Acetaminophen TAB* 325 MG PO PRN (00:55)
[2016-10-11] MEDS ORDERED: Melatonin (NF) 3 MG TAB PO PRN (00:56)
[2016-10-11] MEDS ORDERED: Nicotine Inhaler* 10 MG AMP INH PRN (00:56)
[2016-10-11] MEDS ORDERED: Benzonatate CAP* 100 MG PO PRN (00:57)
[2016-10-11] MEDS: LORazepam INJ* 2 MG/ML 1 ML VIAL IV PRN (01:36)
[2016-10-11] MEDS: oxyCODONE TAB* 5 MG TAB PO PRN ×3 (01:37→10:18)
[2016-10-11 05:26] LABS: Hematocrit 20 % (35-47); Hemoglobin 6.7 g/dl (12.0-16.0); Mean Corpuscular HGB Conc 33 g/dl (31-36); Mean Corpuscular Hemoglobin 33 pg (27-31); Mean Corpuscular Volume 99 fL (80-97); Mean Platelet Volume 10 um3 (7.4-10.4); Red Blood Count 2.04 10^6/ul (4.0-5.4); Red Cell Distribution Width 16 % (10.5-15); White Blood Count 6.4 10^3/ul (3.5-10.8)
[2016-10-11 05:27] LABS: Comments Flag Yes
[2016-10-11] MEDS: Omeprazole CAP* 20 MG PO SCH (05:29)
[2016-10-11 05:36] LABS: BUN/Creatinine Ratio 3.9 (8-20); Calcium 9.4 mg/dL (8.6-10.3); EGFR African American 11.8 (>60); EGFR Non-African American 9.2 (>60); Potassium 3.8 mmol/L (3.5-5.0)
[2016-10-11 05:45] LABS: Troponin I 0.07 ng/mL (<0.04)
--- NOTE | 2016-10-11 06:57 | PN ---
Progress Note - Progress Note Note: Despite patient being prescribed warfarin, her INR is 1. Will initiate heparin GTT to bridge to therapeutic INR.
[2016-10-11] MEDS ORDERED: Heparin VIAL(*) 5000 UNITS/ML VIAL (FIVE THOUSAND) IV SCH (07:00)
[2016-10-11] MEDS ORDERED: HYDROmorphone* 1 MG/ML 1 ML SYR ONE (08:06)
[2016-10-11] MEDS: Heparin DRIP 25,000 UNITS(*) 25,000 UNITS/500 ML BAG IVPB SCH (08:12)
[2016-10-11] MEDS ORDERED: Spiriva Inhaler DEVICE* 1 EACH DEVICE INH ONE (09:00)
[2016-10-11] MEDS: Tiotropium CAP.INH* CAP.INH/18 MCG INH SCH (09:36)
[2016-10-11] MEDS: Mometasone/Formoter 200/5 MDI INH SCH ×2 (09:36→20:43)
[2016-10-11] MEDS: guaiFENesin ER TAB 600 MG PO SCH ×2 (10:18→20:10)
[2016-10-11] MEDS: Docusate CAP* 100 MG PO SCH ×2 (10:18→20:10)
[2016-10-11] MEDS ORDERED: Labetalol IV* 5 MG/ML 20 ML VIAL IV PUSH ONE (10:25)
[2016-10-11] MEDS ORDERED: Epoetin Alfa* 10,000 UNITS/ML VIAL IV ONE (12:00)
[2016-10-11] MEDS: HYDROmorphone* 1 MG/ML 1 ML SYR IV SLOW PU PRN ×2 (14:57→20:06)
[2016-10-11] MEDS ORDERED: Warfarin TAB(*) 5 MG PO SCH (17:00)
--- NOTE | 2016-10-11 17:37 | PN ---
Subjective Date of Service: 10/11/16 Interval History: . Interviewed and examined patient at bedside; Discussed case with Dr. Li ; Reviewed previous notes and radiology results; Patient reports nocturnal cough and sputum production with scant blood streaks. chest pain is very classically pleuritic and reproducible with deep breathing. discussed pain control strategies. . Family History: Unchanged from Admission Social History: Unchanged from Admission Past Medical History: Unchanged from Admission Objective Active Medications: Acetaminophen (Tylenol Tab*) 650 mg PO Q6H PRN PRN Reason: FEVER/PAIN Albuterol (Ventolin 2.5 Mg/3 Ml Neb.Tonya*) 2.5 mg INH Q2H PRN PRN Reason: SOB/WHEEZING Benzonatate (Tessalon Cap*) 100 mg PO TID PRN PRN Reason: COUGH Docusate Sodium (Colace Cap*) 200 mg PO BID [facility] Last Admin: 10/11/16 10:18 Dose: 200 mg Guaifenesin (Mucinex*) 1,200 mg PO BID [facility] Last Admin: 10/11/16 10:18 Dose: 1,200 mg Heparin Sodium (Porcine) (Heparin Vial(*)) 0 units IV .PER PROTOCOL [facility] Last Admin: 10/11/16 08:11 Dose: 6,200 units Hydromorphone HCl (Dilaudid Iv*) 1 mg IV SLOW PU Q4H PRN PRN Reason: PAIN Last Admin: 10/11/16 14:57 Dose: 1 mg Heparin Sodium/Dextrose (Heparin Drip 25,000 Units(*)) 25,000 units in 500 mls @ 0 mls/hr IVPB .(INITIAL RATE) [facility]; Per Protocol PRN Reason: Protocol Last Admin: 10/11/16 08:12 Dose: 23 mls/hr Lorazepam (Ativan Inj*) 0.5 mg IV BEDTIME PRN PRN Reason: SLEEP Last Admin: 10/11/16 01:36 Dose: 0.5 mg Melatonin (Melatonin (Nf)) 3 mg PO BEDTIME PRN; Protocol PRN Reason: Sleep Mometasone Furoate/Formoterol Fumar (Dulera 200/5 Mdi*) 2 puff INH BID [facility] Last Admin: 10/11/16 09:36 Dose: 2 puff Nicotine (Nicotine Inhaler*) 10 mg INH Q2H PRN PRN Reason: CRAVING Omeprazole (Prilosec Cap*) 20 mg PO DAILY@0600 [facility] Last Admin: 10/11/16 05:29 Dose: 20 mg Ondansetron HCl (Zofran Inj*) 4 mg IV Q6H PRN PRN Reason: NAUSEA Oxycodone HCl (Roxycodone Tab*) 5 mg PO Q4H PRN PRN Reason: PAIN Last Admin: 10/11/16 10:18 Dose: 5 mg Tiotropium [place] (Spiriva Cap.Inh*) 1 cap INH DAILY [facility] Last Admin: 10/11/16 09:36 Dose: 1 cap Warfarin Sodium (Coumadin Tab(*)) 5 mg PO DAILY@1700 [facility] PRN Reason: Protocol Last Admin: 10/11/16 17:06 Dose: 5 mg Vital Signs 10/10/16 10/10/16 10/11/16 23:07 23:47 01:36 Temperature 98.0 F Pulse Rate 79 Respiratory 20 16 16 Rate Blood Pressure 156/113 (mmHg) O2 Sat by Pulse 98 Oximetry 10/11/16 10/11/16 10/11/16 01:37 02:36 03:37 Temperature Pulse Rate Respiratory 18 15 16 Rate Blood Pressure (mmHg) O2 Sat by Pulse Oximetry Appearance: NAD (after pain meds given) Ears/Nose/Mouth/Throat: Clear Oropharnyx Respiratory: Clear to Auscultation Cardiovascular: NL Sounds; No Murmurs; No JVD Lymphatic: No Cervical Adenopathy Skin: No Rash or Ulcers Neurological: Alert and Oriented x 3 Lines/Tubes/Other Access: Clean, Dry and Intact Peripheral IV Nutrition: Taking PO's Result Diagrams: 10/12/16 06:28 10/12/16 06:28 Assess/Plan/Problems-Billing . Assessment: 45F c/o chest pain secondary to acute bronchitis. Chest pain r/o ACS, more likely chest wall pain from coughing - telemetry - trend troponin --> are negative. - pain control --> doing well with IV dilaudid prn - supplemental oxygen - sats are ok. - benzonatate PRN - supportive care Acute bronchitis - albuterol nebs - mometasone/formoterol - tiotriopium - Continue montelukast - Incentive spirometry - smoking cessation counselling provided Atrial Fibrillation and HX DVT/PE - continue warfarin once reconciled - continue warfarin & diltiazem ESRD-HD - continue sevelamer & cinacalcet Anemia of renal disease - noted HTN - Continue labetalol, amlodipine & diltiazem once reconciled Hyperlipidemia - continue atorvastatin once reconciled - heart healthy diet CAD/ME - Continue aspirin once reconciled Chronic diastolic HF - daily weights - strict I&Os - heart healthy diet Anxiety - continue alprazolam once reconciled
[2016-10-11] MEDS: Gabapentin CAP(*) 100 MG PO SCH (20:28)
[2016-10-11] MEDS: Labetalol TAB* 200 MG PO SCH (20:28)
[2016-10-11] MEDS: Sevelamer TAB* 800 MG PO SCH (20:31)
[2016-10-11] MEDS ORDERED: Metoprolol Tartrate TAB* 25 MG PO SCH (21:00)
[2016-10-12] MEDS ORDERED: amLODIPine TAB* 5 MG PO SCH ×2 (00:58→09:00)
[2016-10-12] MEDS: amLODIPine TAB* 5 MG PO SCH ×2 (01:15→08:29)
[2016-10-12] MEDS: HYDROmorphone* 1 MG/ML 1 ML SYR IV SLOW PU PRN ×4 (01:18→20:38)
[2016-10-12] MEDS ORDERED: Labetalol IV* 5 MG/ML 20 ML VIAL IV PUSH ONE (04:39)
[2016-10-12] MEDS: Omeprazole CAP* 20 MG PO SCH (05:50)
[2016-10-12] MEDS: Heparin DRIP 25,000 UNITS(*) 25,000 UNITS/500 ML BAG IVPB SCH (06:21)
[2016-10-12 06:48] LABS: Hematocrit 21 % (35-47); Mean Corpuscular HGB Conc 33 g/dl (31-36); Mean Corpuscular Hemoglobin 33 pg (27-31); Mean Corpuscular Volume 99 fL (80-97); Mean Platelet Volume 9 um3 (7.4-10.4); Red Blood Count 2.16 10^6/ul (4.0-5.4); Red Cell Distribution Width 17 % (10.5-15); White Blood Count 5.9 10^3/ul (3.5-10.8)
[2016-10-12 07:06] LABS: BUN/Creatinine Ratio 5.6 (8-20); Calcium 9.7 mg/dL (8.6-10.3); EGFR African American 12.5 (>60); EGFR Non-African American 9.7 (>60); Potassium 4.2 mmol/L (3.5-5.0)
[2016-10-12] MEDS: Sodium Polystyrene ORAL.SOL* 15 GM/60 ML BTL PO SCH (08:28)
[2016-10-12] MEDS: Aspirin Low Dose CHEW TAB* 81 MG PO SCH (08:28)
[2016-10-12] MEDS: guaiFENesin ER TAB 600 MG PO SCH ×2 (08:28→20:25)
[2016-10-12] MEDS: Sevelamer TAB* 800 MG PO SCH ×3 (08:28→20:27)
[2016-10-12] MEDS: Cinacalcet TAB* 30 MG PO SCH (08:28)
[2016-10-12] MEDS: Atorvastatin* 80 MG TAB PO SCH (08:28)
[2016-10-12] MEDS: Diltiazem CD CAP* 240 MG PO SCH (08:28)
[2016-10-12] MEDS: Labetalol TAB* 200 MG PO SCH ×2 (08:28→20:26)
[2016-10-12] MEDS: Gabapentin CAP(*) 100 MG PO SCH ×3 (08:29→20:24)
[2016-10-12] MEDS: oxyCODONE TAB* 5 MG TAB PO PRN ×2 (08:29→22:59)
[2016-10-12] MEDS: Docusate CAP* 100 MG PO SCH ×2 (08:29→20:23)
[2016-10-12] MEDS: Tiotropium CAP.INH* CAP.INH/18 MCG INH SCH (08:47)
[2016-10-12] MEDS: Mometasone/Formoter 200/5 MDI INH SCH ×2 (08:47→21:09)
[2016-10-12] MEDS ORDERED: TIOTROPIUM BROMIDE MONOHYDRATE 2.5 MCG IN SCH (09:00)
[2016-10-12] MEDS ORDERED: Labetalol IV* 5 MG/ML 20 ML VIAL IVPB ONE (10:42)
[2016-10-12] MEDS ORDERED: predniSONE TAB* 20 MG PO ONE (15:02)
[2016-10-12] MEDS ORDERED: Apixaban* 5 MG TAB PO ONE (15:04)
--- NOTE | 2016-10-12 15:04 | PN ---
Subjective Date of Service: 10/12/16 Interval History: . slowly walking in [place], but not steady on feet - with walker and aide at side denies LH, but certainly unsteady + chest pain - requiring IV dilaudid to control this happened to patient before - she says she recalls and agrees it is definitely related to her airway inflammation and URI. . Family History: Unchanged from Admission Social History: Unchanged from Admission Past Medical History: Unchanged from Admission Objective Active Medications: . Acetaminophen (Tylenol Tab*) 650 mg PO Q6H PRN PRN Reason: FEVER/PAIN Albuterol (Ventolin 2.5 Mg/3 Ml Neb.Tonya*) 2.5 mg INH Q2H PRN PRN Reason: SOB/WHEEZING Amlodipine Besylate (Norvasc Tab*) 5 mg PO 0900 [facility] Last Admin: 10/12/16 08:29 Dose: 5 mg Apixaban (Eliquis*) 5 mg PO BID [facility] Aspirin (Aspirin Low Dose Tab*) 81 mg PO DAILY [facility] Last Admin: 10/12/16 08:28 Dose: 81 mg Atorvastatin Calcium (Lipitor*) 80 mg PO DAILY [facility] Last Admin: 10/12/16 08:28 Dose: 80 mg Benzonatate (Tessalon Cap*) 100 mg PO TID PRN PRN Reason: COUGH Cinacalcet (Sensipar Tab*) 90 mg PO DAILY [facility] Last Admin: 10/12/16 08:28 Dose: 90 mg Diltiazem HCl (Cardizem Cd Cap*) 240 mg PO DAILY [facility] Last Admin: 10/12/16 08:28 Dose: 240 mg Docusate Sodium (Colace Cap*) 200 mg PO BID [facility] Last Admin: 10/12/16 08:29 Dose: 200 mg Gabapentin (Neurontin Cap(*)) 100 mg PO TID [facility] Last Admin: 10/12/16 13:25 Dose: 100 mg Guaifenesin (Mucinex*) 1,200 mg PO BID [facility] Last Admin: 10/12/16 08:28 Dose: 1,200 mg Hydromorphone HCl (Dilaudid Iv*) 1 mg IV SLOW PU Q4H PRN PRN Reason: PAIN Last Admin: 10/12/16 13:25 Dose: 1 mg Labetalol HCl (Trandate Tab*) 200 mg PO BID [facility] Last Admin: 10/12/16 08:28 Dose: 200 mg Lorazepam (Ativan Inj*) 0.5 mg IV BEDTIME PRN PRN Reason: SLEEP Last Admin: 10/11/16 01:36 Dose: 0.5 mg Melatonin (Melatonin (Nf)) 3 mg PO BEDTIME PRN; Protocol PRN Reason: Sleep Mometasone Furoate/Formoterol Fumar (Dulera 200/5 Mdi*) 2 puff INH BID [facility] Last Admin: 10/12/16 08:47 Dose: 2 puff Nicotine (Nicotine Inhaler*) 10 mg INH Q2H PRN PRN Reason: CRAVING Omeprazole (Prilosec Cap*) 20 mg PO DAILY@0600 [facility] Last Admin: 10/12/16 05:50 Dose: 20 mg Ondansetron HCl (Zofran Inj*) 4 mg IV Q6H PRN PRN Reason: NAUSEA Oxycodone HCl (Roxycodone Tab*) 5 mg PO Q4H PRN PRN Reason: PAIN Last Admin: 10/12/16 08:29 Dose: 5 mg Sevelamer Carbonate (Renvela Tab*) 4,800 mg PO TID [facility] Last Admin: 10/12/16 13:25 Dose: 4,800 mg Sodium Polystyrene Sulfonate (Kayexalate Oral.Tonya*) 15 gm PO DAILY [facility] Last Admin: 10/12/16 08:28 Dose: 15 gm Tiotropium [employer] (Spiriva Cap.Inh*) 1 cap INH DAILY [facility] Last Admin: 10/12/16 08:47 Dose: 1 cap Vital Signs 10/12/16 10/12/16 10/12/16 10:44 12:40 13:25 Temperature 98.6 F Pulse Rate 53 Respiratory 16 16 16 Rate Blood Pressure 176/113 (mmHg) O2 Sat by Pulse 99 Oximetry 10/12/16 14:25 Temperature Pulse Rate Respiratory 16 Rate Blood Pressure (mmHg) O2 Sat by Pulse Oximetry Oxygen Devices in Use Now: Nasal Cannula Appearance: older than stated age. + SOB when speaking or moving at all. Eyes: No Scleral Icterus Ears/Nose/Mouth/Throat: Clear Oropharnyx Neck: Trachea Midline Respiratory: - - + rhocnhorous sounds bilaterally -- c/w URI/bronchitis Cardiovascular: NL Sounds; No Murmurs; No JVD, - - sternal scar noted Abdominal: NL Sounds; No Tenderness; No Distention Lymphatic: No Cervical Adenopathy Extremities: No Edema Skin: No Rash or Ulcers Neurological: Alert and Oriented x 3 Lines/Tubes/Other Access: Clean, Dry and Intact Peripheral IV Nutrition: Taking PO's Result Diagrams: 10/12/16 06:28 10/12/16 06:28 Additional Lab and Data: . Assess/Plan/Problems-Billing . Assessment: 45F c/o chest pain secondary to acute bronchitis. Chest pain r/o ACS, more likely chest wall pain from coughing - telemetry - trend troponin --> are negative. - pain control --> doing well with IV dilaudid prn - supplemental oxygen - sats are ok. - benzonatate PRN - supportive care Acute bronchitis - albuterol nebs - mometasone/formoterol - tiotriopium - Continue montelukast - Incentive spirometry - smoking cessation counselling provided Atrial Fibrillation and HX DVT/PE - continue warfarin once reconciled - continue warfarin & diltiazem ESRD-HD - continue sevelamer & cinacalcet Anemia of renal disease - noted HTN - Continue labetalol, amlodipine & diltiazem once reconciled Hyperlipidemia - continue atorvastatin once reconciled - heart healthy diet CAD/OR - Continue aspirin once reconciled Chronic diastolic HF - daily weights - strict I&Os - heart healthy diet Anxiety - continue alprazolam once reconciled - Patient Problems (1) Acute on chronic respiratory failure with hypoxemia Current Visit: No Status: Acute Priority: High Code(s): J96.21 - ACUTE AND CHRONIC RESPIRATORY FAILURE WITH HYPOXIA Comment: - oxygen requirement noted (2) COPD exacerbation Current Visit: No Status: Acute Code(s): J44.1 - CHRONIC OBSTRUCTIVE PULMONARY DISEASE W (ACUTE) EXACERBATION Comment: 2/2 bronchitis. Continue steroids c/w nebs, supplemental O2, wean oxygen as able. improving slowly (3) Chest pain Current Visit: No Status: Acute Code(s): R07.9 - CHEST PAIN, UNSPECIFIED Comment: Secondary to URI No acute ST or T wave changes seen on EKG (4) End stage renal disease on dialysis Current Visit: No Status: Chronic Priority: Medium Code(s): N18.6 - END STAGE RENAL DISEASE; Z99.2 - DEPENDENCE ON RENAL DIALYSIS Comment: Continue dialysis per nephrology team.
[2016-10-12] MEDS: Ondansetron INJ* 2 MG/ML VIAL IV PRN (18:07)
[2016-10-12] MEDS: LORazepam INJ* 2 MG/ML 1 ML VIAL IV PRN (20:17)
[2016-10-12] MEDS ORDERED: Apixaban* 5 MG TAB PO SCH (21:00)
[2016-10-13] MEDS ORDERED: Labetalol IV* 5 MG/ML 20 ML VIAL IV PUSH ONE (00:27)
[2016-10-13] MEDS: Ondansetron INJ* 2 MG/ML VIAL IV PRN ×2 (00:34→15:24)
[2016-10-13] MEDS: Labetalol TAB* 200 MG PO SCH ×3 (02:13→17:27)
[2016-10-13] MEDS: HYDROmorphone* 1 MG/ML 1 ML SYR IV SLOW PU PRN ×4 (02:21→19:26)
[2016-10-13] MEDS: Omeprazole CAP* 20 MG PO SCH (06:16)
[2016-10-13] MEDS: Mometasone/Formoter 200/5 MDI INH SCH ×2 (08:48→19:53)
[2016-10-13] MEDS: Tiotropium CAP.INH* CAP.INH/18 MCG INH SCH (08:48)
[2016-10-13] MEDS: guaiFENesin ER TAB 600 MG PO SCH ×2 (09:41→20:32)
[2016-10-13] MEDS: Cinacalcet TAB* 30 MG PO SCH (09:41)
[2016-10-13] MEDS: amLODIPine TAB* 5 MG PO SCH (09:41)
[2016-10-13] MEDS: Diltiazem CD CAP* 240 MG PO SCH (09:41)
[2016-10-13] MEDS: Docusate CAP* 100 MG PO SCH ×2 (09:41→20:31)
[2016-10-13] MEDS: Atorvastatin* 80 MG TAB PO SCH (09:42)
[2016-10-13] MEDS: Sevelamer TAB* 800 MG PO SCH ×3 (09:42→17:27)
[2016-10-13] MEDS: Aspirin Low Dose CHEW TAB* 81 MG PO SCH (09:42)
[2016-10-13] MEDS: predniSONE TAB* 5 MG PO SCH (09:42)
[2016-10-13] MEDS: Apixaban* 5 MG TAB PO SCH ×2 (09:42→20:32)
[2016-10-13] MEDS: Gabapentin CAP(*) 100 MG PO SCH ×3 (09:42→20:31)
[2016-10-13] MEDS: Sodium Polystyrene ORAL.SOL* 15 GM/60 ML BTL PO SCH (09:43)
[2016-10-13] MEDS: ALPRAZolam TAB* 0.25 MG PO PRN (11:11)
--- NOTE | 2016-10-13 17:50 | PN ---
Subjective Date of Service: 10/13/16 Interval History: . Still severe chest pain - about the same as yesterday. Intermittent MILLS erratic BP -- the norm for her. We discussed planning for dc tomorrow and she is willing to try marginal appetite. . Family History: Unchanged from Admission Social History: Unchanged from Admission Past Medical History: Unchanged from Admission Objective Active Medications: . Acetaminophen (Tylenol Tab*) 650 mg PO Q6H PRN PRN Reason: FEVER/PAIN Albuterol (Ventolin 2.5 Mg/3 Ml Neb.Tonya*) 2.5 mg INH Q2H PRN PRN Reason: SOB/WHEEZING Alprazolam (Xanax Tab*) 0.25 mg PO TID PRN PRN Reason: ANXIETY Last Admin: 10/13/16 11:11 Dose: 0.25 mg Amlodipine Besylate (Norvasc Tab*) 5 mg PO 0900 [facility] Last Admin: 10/13/16 09:41 Dose: 5 mg Apixaban (Eliquis*) 5 mg PO BID [facility] Last Admin: 10/13/16 09:42 Dose: 5 mg Aspirin (Aspirin Low Dose Tab*) 81 mg PO DAILY [facility] Last Admin: 10/13/16 09:42 Dose: 81 mg Atorvastatin Calcium (Lipitor*) 80 mg PO DAILY [facility] Last Admin: 10/13/16 09:42 Dose: 80 mg Benzonatate (Tessalon Cap*) 100 mg PO TID PRN PRN Reason: COUGH Cinacalcet (Sensipar Tab*) 90 mg PO DAILY [facility] Last Admin: 10/13/16 09:41 Dose: 90 mg Diltiazem HCl (Cardizem Cd Cap*) 240 mg PO DAILY [facility] Last Admin: 10/13/16 09:41 Dose: 240 mg Docusate Sodium (Colace Cap*) 200 mg PO BID [facility] Last Admin: 10/13/16 09:41 Dose: 200 mg Gabapentin (Neurontin Cap(*)) 100 mg PO TID [facility] Last Admin: 10/13/16 14:25 Dose: 100 mg Guaifenesin (Mucinex*) 1,200 mg PO BID [facility] Last Admin: 10/13/16 09:41 Dose: 1,200 mg Hydromorphone HCl (Dilaudid Iv*) 1 mg IV SLOW PU Q4H PRN PRN Reason: PAIN Last Admin: 10/13/16 15:24 Dose: 1 mg Labetalol HCl (Trandate Tab*) 200 mg PO Q8H [facility] Last Admin: 10/13/16 17:27 Dose: 200 mg Melatonin (Melatonin (Nf)) 3 mg PO BEDTIME PRN; Protocol PRN Reason: Sleep Mometasone Furoate/Formoterol Fumar (Dulera 200/5 Mdi*) 2 puff INH BID [facility] Last Admin: 10/13/16 08:48 Dose: 2 puff Nicotine (Nicotine Inhaler*) 10 mg INH Q2H PRN PRN Reason: CRAVING Omeprazole (Prilosec Cap*) 20 mg PO DAILY@0600 [facility] Last Admin: 10/13/16 06:16 Dose: 20 mg Ondansetron HCl (Zofran Inj*) 4 mg IV Q6H PRN PRN Reason: NAUSEA Last Admin: 10/13/16 15:24 Dose: 4 mg Oxycodone HCl (Roxycodone Tab*) 5 mg PO Q4H PRN PRN Reason: PAIN Last Admin: 10/12/16 22:59 Dose: 5 mg Prednisone (Deltasone Tab*) 20 mg PO DAILY [facility] Last Admin: 10/13/16 09:42 Dose: 20 mg Sevelamer Carbonate (Renvela Tab*) 4,800 mg PO TID AC [facility] Last Admin: 10/13/16 17:27 Dose: 4,800 mg Sodium Polystyrene Sulfonate (Kayexalate Oral.Tonya*) 15 gm PO DAILY [facility] Last Admin: 10/13/16 09:43 Dose: 15 gm Tiotropium Mcpherson (Spiriva Cap.Inh*) 1 cap INH DAILY [facility] Last Admin: 10/13/16 08:48 Dose: 1 cap . Vital Signs 10/12/16 10/12/16 10/12/16 20:00 20:16 20:17 Temperature 98.1 F Pulse Rate 94 Respiratory 20 20 20 Rate Blood Pressure 194/88 (mmHg) O2 Sat by Pulse 100 Oximetry 10/12/16 10/12/16 10/12/16 20:24 20:38 21:13 Temperature Pulse Rate 129 Respiratory 20 20 18 Rate Blood Pressure (mmHg) O2 Sat by Pulse 97 Oximetry Oxygen Devices in Use Now: Nasal Cannula Appearance: NAD at rest - pain with coughing Eyes: No Scleral Icterus Ears/Nose/Mouth/Throat: Clear Oropharnyx Neck: NL Appearance and Movements; NL JVP Respiratory: Symmetrical Chest Expansion and Respiratory Effort, - - rhonchorous breath sounds Cardiovascular: NL Sounds; No Murmurs; No JVD Abdominal: NL Sounds; No Tenderness; No Distention Extremities: No Edema Skin: No Rash or Ulcers Neurological: Alert and Oriented x 3 Lines/Tubes/Other Access: Clean, Dry and Intact Peripheral IV Nutrition: Taking PO's Result Diagrams: 10/12/16 06:28 10/12/16 06:28 Additional Lab and Data: . Assess/Plan/Problems-Billing . Assessment: 45F c/o severe chest pain secondary to acute bronchitis. Chest pain r/o ACS, more likely chest wall pain from coughing - telemetry - trend troponin --> are negative. - pain control --> doing well with IV dilaudid prn - supplemental oxygen - sats are ok. - benzonatate PRN - supportive care Acute bronchitis - albuterol nebs - mometasone/formoterol - tiotriopium - Continue montelukast - Incentive spirometry - smoking cessation counselling provided Atrial Fibrillation and HX DVT/PE - continue warfarin once reconciled - continue warfarin & diltiazem ESRD-HD - continue sevelamer & cinacalcet Anemia of renal disease - noted HTN - Continue labetalol, amlodipine & diltiazem once reconciled Hyperlipidemia - continue atorvastatin once reconciled - heart healthy diet CAD/NM - Continue aspirin once reconciled Chronic diastolic HF - daily weights - strict I&Os - heart healthy diet Anxiety - continue alprazolam once reconciled - Patient Problems (1) Acute on chronic respiratory failure with hypoxemia Current Visit: No Status: Acute Priority: High Code(s): J96.21 - ACUTE AND CHRONIC RESPIRATORY FAILURE WITH HYPOXIA Comment: - oxygen requirement noted (2) COPD exacerbation Current Visit: No Status: Acute Code(s): J44.1 - CHRONIC OBSTRUCTIVE PULMONARY DISEASE W (ACUTE) EXACERBATION Comment: 2/2 bronchitis. Continue steroids c/w nebs, supplemental O2, wean oxygen as able. improving slowly (3) Chest pain Current Visit: No Status: Acute Code(s): R07.9 - CHEST PAIN, UNSPECIFIED Comment: Secondary to URI No acute ST or T wave changes seen on EKG (4) End stage renal disease on dialysis Current Visit: No Status: Chronic Priority: Medium Code(s): N18.6 - END STAGE RENAL DISEASE; Z99.2 - DEPENDENCE ON RENAL DIALYSIS Comment: Continue dialysis per nephrology team.
[2016-10-14] MEDS: HYDROmorphone* 1 MG/ML 1 ML SYR IV SLOW PU PRN ×2 (01:36→08:07)
[2016-10-14] MEDS: Labetalol TAB* 200 MG PO SCH ×2 (01:36→15:16)
[2016-10-14] MEDS: Omeprazole CAP* 20 MG PO SCH (05:31)
[2016-10-14] MEDS: Mometasone/Formoter 200/5 MDI INH SCH (07:45)
[2016-10-14] MEDS: Tiotropium CAP.INH* CAP.INH/18 MCG INH SCH (07:45)
[2016-10-14] MEDS: Sevelamer TAB* 800 MG PO SCH ×2 (07:58→14:38)
[2016-10-14] MEDS: Gabapentin CAP(*) 100 MG PO SCH ×2 (08:06→15:18)
[2016-10-14] MEDS: guaiFENesin ER TAB 600 MG PO SCH (08:06)
[2016-10-14] MEDS: Ondansetron INJ* 2 MG/ML VIAL IV PRN (08:07)
[2016-10-14] MEDS: ALPRAZolam TAB* 0.25 MG PO PRN (08:07)
[2016-10-14 10:43] VITALS: BP 180/103
[2016-10-14] MEDS: Docusate CAP* 100 MG PO SCH (15:16)
[2016-10-14] MEDS: Atorvastatin* 80 MG TAB PO SCH (15:17)
[2016-10-14] MEDS: Apixaban* 5 MG TAB PO SCH (15:17)
[2016-10-14] MEDS: amLODIPine TAB* 5 MG PO SCH (15:17)
[2016-10-14] MEDS: Aspirin Low Dose CHEW TAB* 81 MG PO SCH (15:17)
[2016-10-14] MEDS: predniSONE TAB* 5 MG PO SCH (15:18)
[2016-10-14] MEDS: Cinacalcet TAB* 30 MG PO SCH (15:18)
[2016-10-14] MEDS: Diltiazem CD CAP* 240 MG PO SCH (15:19)
[2016-10-14] MEDS: Sodium Polystyrene ORAL.SOL* 15 GM/60 ML BTL PO SCH (15:19)
--- NOTE | 2016-10-14 17:06 | PN ---
Hospitalist Progress Note . HOSPITALIST DISCHARGE NOTE: See dc instructions and summary by me. Patient stable for dc dc instructions reviewed with the patient at the bedside. DC patient home today.
--- NOTE | 2016-10-15 13:37 | DS ---
CC: Dr. Osorio. DISCHARGE SUMMARY: DATE OF ADMISSION: 10/10/16 DATE OF DISCHARGE: 10/14/16 PRIMARY CARE PROVIDER: Dr. Franck Osorio. STATUS DURING HOSPITALIZATION: Inpatient. PRINCIPAL DISCHARGE DIAGNOSIS: Severe chest pain requiring opiate therapy in this chronic obstructive pulmonary disease with acute bronchitis and resultant chest pain. SECONDARY DIAGNOSES: 1. End-stage renal disease, on hemodialysis. 2. Deep venous thrombosis/pulmonary embolism complicated by alveolar hemorrhage. 3. Porcine aortic and mitral valve replacements. 4. Severe chronic obstructive pulmonary disease, intermittently on home oxygen. 5. Coronary artery disease, status post myocardial infarction. 6. Chronic diastolic heart failure. 7. Atrial fibrillation. 8. Endocarditis, status post cardiac surgery. 9. Superior vena cava syndrome. 10. Anemia of renal disease. 11. Hypertension. 12. Hyperlipidemia. 13. Depression and anxiety. DISCHARGE MEDICATION REGIMEN: Changes: 1. Stop warfarin as the patient has struggled to keep a therapeutic INR. 2. Initiate Eliquis 5 mg by mouth twice daily. 3. Tessalon Perles 100 mg by mouth 3 times daily x30 tabs (new) 4. Guaifenesin ER 1200 mg by mouth twice daily - 30 tablets prescribed (new) Continue: 1. Aspirin 81 mg by mouth daily. 2. Amlodipine 5 mg by mouth daily. 3. Lipitor 80 mg by mouth daily. 4. B-Complex with folic acid 1 tab by mouth daily. 5. Benadryl 25 mg by mouth at bedtime. 6. Labetalol 200 mg by mouth twice daily. 7. Gabapentin 100 mg by mouth 3 times daily. 8. Diltiazem CD 240 mg by mouth daily. 9. Metoprolol 25 mg by mouth twice daily. 10. Lidocaine/Prilosec predialysis as per usual custom. 11. Singulair 10 mg by mouth daily. 12. OxyContin 15 mg by mouth daily. 13. Alprazolam/Xanax 0.25 mg by mouth 3 times daily as needed. 14. Vitamin E 400 units by mouth daily. 15. Spiriva 2.5 mcg inhaled daily. 16. Kayexalate 15 g daily per environmental attorney at their instruction. 17. Sensipar 90 mg by mouth daily. 18. Renvela 800 mg strength - 4800 mg 3 times daily with meals as per previous custom - Note, no meds were intended to change other than the starting of Eliquis and the concomitant discontinuation of warfarin, and the short term use of benzonatate/Tessalon and guaifenesin. HISTORY OF PRESENT ILLNESS AND HOSPITAL COURSE: Please see the H and P by Dr. Thomas Li on 10/11/16. In brief, Ms. Joseph is a 46-year-old female well- known to our service who reports a harsh, dry cough for the past few days with the onset of chest pain on October 09 with acute worsening this evening, becoming 10/10 with associated shortness of breath, nausea, vomiting, and palpitations, as well as lightheadedness, sweating, and subjective fevers, chills, and diarrhea. The pain was worse with deep inspiration and movement and reproducible to light palpation. The patient was admitted for pain control. Her troponins remained generally flat. I did not think this was an acute coronary symptom. In fact, I have treated this specific problem in [place] previously during an inpatient hospitalization when there was some suspicion that the patient was having acute coronary syndrome and it turned out to be worsening bronchitis. Moreover, she is exquisitely sensitive to opiate withdrawal and so she responded very nicely to IV Dilaudid. She required this for the next 2 days with good resolution this morning when I checked on her during daily rounds. She was eager for discharge. She is being dialyzed and will then proceed home. Dr. Osorio was aware of her hospitalization. In particular, despite taking her warfarin, I saw that her INR was only 1 and did not bump during the hospitalization despite reinitiating her outpatient dose. I discussed the concept of switching to Eliquis with Dr. Osorio and he agreed this might be a good move. This does not require renal re-dosing and none of the typical criteria for dose reduction were not met. So, she is on 5 mg twice daily. She was told to report any bleeding problems promptly to Dr. Osorio and she will follow up with him in the outpatient setting. She was happy about this because she has also been struggling with Coumadin dosing in the outpatient setting and this might make things simpler. The patient is discharged in stable condition with instructions to come back to the hospital if she experiences any worrisome symptoms that are concerning to her. TIME SPENT: Total time taken to discharge Ms. Joseph was 40 minutes, greater than half the time was spent going over the discharge instructions at the bedside. Followup appointment will be with Dr. Osorio as per his instructions, but also with Dr. Zaid Garibay on 10/23/16 at 11:40 a.m. [id number]/[facility] #: [id number] [facility]
== END 2016-10-14 15:45 | disposition home or self-care (01) | DRG 189 ==
LOC: ED 20:13 → MEDTELE 22:50 → OBSVTOIN 10-12 10:43
PROVIDERS: ADMIT Hospitalist; ATTEND Internal Medicine
PROC: 5A1D60Z (ICD-10-PCS; principal; 2016-10-14)
DX: J96.21 Acute and chronic respiratory failure with hypoxia (principal); I13.2 Hypertensive heart and chronic kidney disease with heart failure and with stage 5 chronic kidney disease, or end stage renal disease; J44.0 Chronic obstructive pulmonary disease with (acute) lower respiratory infection; N18.6 End stage renal disease; I48.91 Unspecified atrial fibrillation; I87.1 Compression of vein; J44.1 Chronic obstructive pulmonary disease with (acute) exacerbation; I50.32 Chronic diastolic (congestive) heart failure; J20.9 Acute bronchitis, unspecified; R07.9 Chest pain, unspecified; D63.1 Anemia in chronic kidney disease; E78.5 Hyperlipidemia, unspecified; F17.210 Nicotine dependence, cigarettes, uncomplicated; F32.9 Major depressive disorder, single episode, unspecified; F41.9 Anxiety disorder, unspecified; Z99.2 Dependence on renal dialysis; Z86.718 Personal history of other venous thrombosis and embolism; Z86.711 Personal history of pulmonary embolism; Z95.3 Presence of xenogenic heart valve; I25.2 Old myocardial infarction; Z79.82 Long term (current) use of aspirin; Z79.01 Long term (current) use of anticoagulants; Z79.891 Long term (current) use of opiate analgesic; Z79.899 Other long term (current) drug therapy; Z88.0 Allergy status to penicillin; Z88.8 Allergy status to other drugs, medicaments and biological substances; Z95.1 Presence of aortocoronary bypass graft
CPT/HCPCS: 36415; 71010; 80048; 80053; 83605; 84484; 85025; 85027; 85610; 85730; 93005; 94640; 94760; 99406; A9270-GY; G0378; J0885; J1170; J1644; J2060; J2270; J2405; J7512

== ENCOUNTER 2016-11-04 20:46 | Inpatient (IN) | payer MEDICARE, MEDICAID ==
[2016-11-04] MEDS ORDERED: Morphine INJ* 4 MG/ML 1 ML SYRINGE IV ONE (20:51)
[2016-11-04 21:05] LABS: Hematocrit 23 % (35-47); Hemoglobin 7.6 g/dl (12.0-16.0); Mean Corpuscular HGB Conc 33 g/dl (31-36); Mean Corpuscular Hemoglobin 33 pg (27-31); Mean Corpuscular Volume 99 fL (80-97); Mean Platelet Volume 9 um3 (7.4-10.4); Red Blood Count 2.32 10^6/ul (4.0-5.4); Red Cell Distribution Width 18 % (10.5-15); White Blood Count 8.6 10^3/ul (3.5-10.8)
[2016-11-04 21:09] LABS: Add Diff/Slide Review? Manual Diff Added; Comments Flag Yes
[2016-11-04 21:18] LABS: BUN/Creatinine Ratio 5.6 (8-20); Calcium 9.9 mg/dL (8.6-10.3); EGFR African American 6.1 (>60); EGFR Non-African American 4.7 (>60); Globulin 2.6 g/dL (2-4); Potassium 4.1 mmol/L (3.5-5.0); Total Bilirubin 0.6 mg/dL (0.2-1.0); Total Protein 6.6 g/dL (6.4-8.9)
[2016-11-04 21:24] LABS: Troponin I 0.07 ng/mL (<0.04)
[2016-11-04 21:27] LABS: Eosinophils % 3 % (0-6); Neutrophil % 68 % (38-83); Schistocytes 1+
[2016-11-04 21:28] LABS: Macrocytosis 2+; Polychromasia 1+
--- NOTE | 2016-11-04 21:29 | RAD ---
HISTORY: Chest pain COMPARISONS: October 10, 2016 VIEWS:1: Single frontal portable view of the chest at 9:02 PM FINDINGS: LINES AND TUBES: None. CARDIOMEDIASTINAL SILHOUETTE: The cardiac silhouette is enlarged. The cardiomediastinal silhouette is otherwise normal for portable technique. PLEURA: The costophrenic angles are sharp. No pleural abnormalities are noted. LUNG PARENCHYMA: There is a diffuse reticular pattern with indistinct pulmonary vessels. ABDOMEN: The upper abdomen is clear. There is no subphrenic gas. BONES AND SOFT TISSUES: The patient is status post median sternotomy. A metallic stent is noted overlying the heart IMPRESSION: CARDIOMEGALY WITH PULMONARY INTERSTITIAL EDEMA
[2016-11-04 21:30] LABS: Add Path Review? YES
--- NOTE | 2016-11-04 21:51 | ED ---
I, Suman,Kati, scribed for Morales Mendiola MD on 11/04/16 at 2053 . HPI Chest Pain - HPI Summary HPI Summary: This 46 y/o female presents to ED for acute onset of left sided CP and SOB since 3 hours ago. EMT reports neck vein distention, subacute emphysema, and poor air movement noted en route. Positive n/v. PMHx is complex and includes HTN , CAD, STEMI, a-fib, right neck vascular surgery, and ESRD with dialysis on Friday, , and Friday. Last dialysis was 2 days ago. - History of Current Complaint Hx Obtained From: Patient, EMS, Medical Records Onset/Duration: Started Hours Ago, Atraumatic, Still Present Timing: Constant Chest Pain Location: Left Anterior Chest Pain Radiates: No Character: Dull/Aching Aggravating Factor(s): Nothing Alleviating Factor(s): Nothing Associated Signs and Symptoms: Positive: Chest Pain, Shortness of Breath, Nausea , Vomiting. Negative: Fever, Chills - Additional Pertinent History Primary Care Physician: JOHN - Allergy/Home Medications Allergies/Adverse Reactions: Allergies Allergy/AdvReac Type Severity Reaction Status Date / Time Iodixanol [From Visipaque] Allergy Severe Airway Verified 10/26/16 14:17 Obstruction Lisinopril Allergy Severe Difficulty Verified 10/26/16 14:17 Breathing Penicillins Allergy Severe HIVES,SWELLING Verified 10/26/16 14:17 THROAT Cephalosporins Allergy not Verified 10/26/16 14:17 specified PMH/Surg Hx/FS Hx/Imm Hx Endocrine/Hematology History: Reports: Hx Anticoagulant Therapy, Hx Blood Transfusions, Hx Unexplained Bleeding Denies: Hx Blood Disorders, Hx Bone Marrow Disease, Hx Diabetes, Hx Systemic Lupus Erythematosus, Hx Sickle Cell Disease, Hx Thyroid Disease, Hx Anemia, Other Endocrine/Hematological Disorders Cardiovascular History: Reports: Hx Cardiomegaly, Hx Congestive Heart Failure, Hx Coronary Artery Disease, Hx Deep Vein Thrombosis, Hx Hypercholesterolemia, Hx Hypertension, Hx Valvular Heart Disease, Other Cardiovascular Problems/ Disorders - 2 artificial heart valves; Hx of endocarditis Denies: Hx Aneurysm, Hx Angina, Hx Angioplasty, Hx Auto Implanted Cardiovert Defib, Hx Cardiac Arrest, Hx Congenital Heart Disease, Hx Embolism, Hx Hypotension, Hx Pacemaker/ICD, Hx Peripheral Vascular Disease, Hx Rheumatic Fever, Hx Syncope Respiratory History: Reports: Hx Asthma, Hx Chronic Obstructive Pulmonary Disease (COPD), Hx Pneumonia, Hx Pulmonary Edema, Hx Pulmonary Embolism, Other Respiratory Problems/Disorders - PULMONARY EDEMA Denies: Hx Chronic Bronchitis, Hx Cystic Fibrosis, Hx Lung Cancer, Hx Pleural Effusion, Hx Seasonal Allergies, Hx Sleep Apnea History: Reports: Hx Chronic Renal Failure, Hx Dialysis - ESRD, [place] ON // FRI, Hx Renal Disease Denies: Hx Benign Prostatic Hyperplasia, Hx Kidney Infection, Hx Kidney Stones, Other Problems/Disorders Musculoskeletal History: Reports: Hx Arthritis Denies: Hx Back Problems, Hx Bursitis, Hx Congenital Bone Abnormalities, Hx Fibromyalgia, Hx Gout, Hx Orthopedic Injury, Hx Osteoporosis, Hx Scoliosis, Hx Tendonitis, Other Musculoskeletal History Sensory History: Denies: Hx Contacts or Glasses, Hx Hearing Aid Opthamlomology History: Denies: Hx Contacts or Glasses Neurological History: Reports: Hx Headaches Denies: Hx Seizures Psychiatric History: Reports: Hx Anxiety, Hx Depression Denies: Hx Attention Deficit Hyperactivity Disorder, Hx Eating Disorder, Hx Panic Disorder, Hx Post Traumatic Stress Disorder, Hx Inpatient Treatment, Hx Community Mental Health Tx, Hx Schizophrenia, Hx Bipolar Disorder, Hx Suicide Attempt, Hx of Violent Episodes Against Others, Hx Substance Abuse, Other Psychiatric Issues/Disorders - Surgical History Surgery Procedure, Year, and Place: bilateral knees, dialysis tube placed in abdomen( out), fistula tube placement in arm for dialysis Lt arm has been revised. waiting out ok to use [id number], open heart valve replacement, hysterectomy Hx Anesthesia Reactions: No - Immunization History Date of Tetanus Vaccine: Unk Date of Influenza Vaccine: Unk Infectious Disease History: Reports: Hx of Known/Suspected MRSA - Negative Denies: Hx Clostridium Difficile, Hx Hepatitis, Hx Human Immunodeficiency Virus (HIV), Hx Shingles, Hx Tuberculosis, Hx Known/Suspected VRE - Family History Known Family History: Positive: Hypertension - Mother, Diabetes - Mother, Other Family History: Father -- Lung CA - Social History Alcohol Use: None Hx Substance Use: No Substance Use Type: Reports: None Hx Tobacco Use: Yes Smoking Status (MU): Former Smoker Type: Cigarettes Amount Used/How Often: 1/2 PPD Length of Time of Smoking/Using Tobacco: 15 Have You Smoked in the Last Year: Yes Review of Systems Negative: Fever, Chills Positive: Chest Pain Positive: Shortness Of Breath Positive: Vomiting, Nausea All Other Systems Reviewed And Are Negative: Yes Physical Exam Triage Information Reviewed: Yes Vital Signs On Initial Exam: Initial Vitals Pulse Resp Pulse Ox 102 21 95 11/04/16 20:59 11/04/16 20:59 11/04/16 20:59 Vital Signs Reviewed: Yes Appearance: Positive: Ill-Appearing, Pain Distress - moderate discomfort Skin: Positive: Warm, Other - possible lt upper chest sub q emphysema Head/Face: Positive: Normal Head/Face Inspection Eyes: Positive: HUMZA ENT: Positive: Hearing grossly normal Neck: Positive: Supple Respiratory/Lung Sounds: Positive: Decreased Breath Sounds, Other - coarse bilat bs Cardiovascular: Positive: Normal Abdomen Description: Positive: Nontender, Soft Bowel Sounds: Positive: Present Musculoskeletal: Positive: Strength/ROM Intact Neurological: Positive: Sensory/Motor Intact Diagnostics - Vital Signs Vital Signs Temp Pulse Resp BP Pulse Ox 11/04/16 21:31 90 18 157/93 99 11/04/16 21:17 96 11/04/16 21:11 15 134/105 11/04/16 21:10 16 11/04/16 21:00 98.8 F 105 24 120/79 94 11/04/16 20:59 102 21 95 - Laboratory Lab Results: Lab Results 11/04/16 11/04/16 11/04/16 Range/Units 20:56 20:56 20:56 WBC 8.6 (3.5-10.8) 10^3/ul RBC 2.32 L (4.0-5.4) 10^6/ul Hgb 7.6 L (12.0-16.0) g/dl Hct 23 L (35-47) % MCV 99 H (80-97) fL MCH 33 H (27-31) pg MCHC 33 (31-36) g/dl RDW 18 H (10.5-15) % Plt Count 178 (150-450) 10^3/ul MPV 9 (7.4-10.4) um3 Absolute Neuts (auto) 5.8 (1.5-7.7) 10^3/ul Absolute Lymphs (auto) 1.5 (1.0-4.8) 10^3/ul Absolute Monos (auto) 0.9 H (0-0.8) 10^3/ul Absolute Eos (auto) 0.3 (0-0.6) 10^3/ul Absolute Basos (auto) 0.1 (0-0.2) 10^3/ul Absolute Nucleated RBC Not Reportable Neutrophils % 68 (38-83) % Lymphocytes % 18 L (25-47) % Monocytes % 10 (0-13) % Eosinophils % 3 (0-6) % Basophils % 1 (0-2) % Normal RBC Morphology Not Reportable Polychromasia 1+ Macrocytosis 2+ Elliptocytes 1+ Schistocytes 1+ Hem Pathologist Commnt Pending INR (Anticoag Therapy) 1.02 (0.89-1.11) Sodium 134 (133-145) mmol/L Potassium 4.1 (3.5-5.0) mmol/L Chloride 92 L (101-111) mmol/L Carbon Dioxide 31 (22-32) mmol/L Anion Gap 11 (2-11) mmol/L BUN 50 H (6-24) mg/dL Creatinine 8.98 H (0.51-0.95) mg/dL Est GFR ( Amer) 6.1 (>60) Est GFR (Non-Af Amer) 4.7 (>60) BUN/Creatinine Ratio 5.6 L (8-20) Glucose 89 (70-100) mg/dL Lactic Acid (0.5-2.0) mmol/L Calcium 9.9 (8.6-10.3) mg/dL Total Bilirubin 0.60 (0.2-1.0) mg/dL AST 18 (13-39) U/L ALT 12 (7-52) U/L Alkaline Phosphatase 70 (34-104) U/L Troponin I 0.07 H* (<0.04) ng/mL B-Natriuretic Peptide ( - 100) pg/mL Total Protein 6.6 (6.4-8.9) g/dL Albumin 4.0 (3.2-5.2) g/dL Globulin 2.6 (2-4) g/dL Albumin/Globulin Ratio 1.5 (1-3) 11/04/16 11/04/16 Range/Units 20:56 20:56 WBC (3.5-10.8) 10^3/ul RBC (4.0-5.4) 10^6/ul Hgb (12.0-16.0) g/dl Hct (35-47) % MCV (80-97) fL MCH (27-31) pg MCHC (31-36) g/dl RDW (10.5-15) % Plt Count (150-450) 10^3/ul MPV (7.4-10.4) um3 Absolute Neuts (auto) (1.5-7.7) 10^3/ul Absolute Lymphs (auto) (1.0-4.8) 10^3/ul Absolute Monos (auto) (0-0.8) 10^3/ul Absolute Eos (auto) (0-0.6) 10^3/ul Absolute Basos (auto) (0-0.2) 10^3/ul Absolute Nucleated RBC Neutrophils % (38-83) % Lymphocytes % (25-47) % Monocytes % (0-13) % Eosinophils % (0-6) % Basophils % (0-2) % Normal RBC Morphology Polychromasia Macrocytosis Elliptocytes Schistocytes Hem Pathologist Commnt INR (Anticoag Therapy) (0.89-1.11) Sodium (133-145) mmol/L Potassium (3.5-5.0) mmol/L Chloride (101-111) mmol/L Carbon Dioxide (22-32) mmol/L Anion Gap (2-11) mmol/L BUN (6-24) mg/dL Creatinine (0.51-0.95) mg/dL Est GFR ( Amer) (>60) Est GFR (Non-Af Amer) (>60) BUN/Creatinine Ratio (8-20) Glucose (70-100) mg/dL Lactic Acid 1.1 (0.5-2.0) mmol/L Calcium (8.6-10.3) mg/dL Total Bilirubin (0.2-1.0) mg/dL AST (13-39) U/L ALT (7-52) U/L Alkaline Phosphatase (34-104) U/L Troponin I (<0.04) ng/mL B-Natriuretic Peptide 2586 H ( - 100) pg/mL Total Protein (6.4-8.9) g/dL Albumin (3.2-5.2) g/dL Globulin (2-4) g/dL Albumin/Globulin Ratio (1-3) Result Diagrams: 11/04/16 20:56 11/04/16 20:56 Lab Statement: Any lab studies that have been ordered have been reviewed, and results considered in the medical decision making process. - Radiology CXR Xray Interpretation: Positive (See Comments) - CARDIOMEGALY WITH PULMONARY INTERSTITIAL EDEMA Radiology Interpretation Completed By: Radiologist - EKG 2107 EKG Rhythm: Atrial Fibrillation - 85 bpm Re-Evaluation - Re-Evaluation First Eval Re-Evaluation Time: 22:45 Change: Unchanged Comment: Pt yelling and loudly complaining of increased CP and dyspnea from ED room. Chest Pain Course/Dx - Course Assessment/Plan: This 46 y/o female presents to ED via ambulance for left sided CP and SOB since 3 hours ago. PMHx is signficant for ESRD with Friday, , Friday hemodialysis, with last hemodialysis 2 days ago. CXR indicates cardiomegaly with pulmonary interstitial edema. Blood work indicates elevated trop of 0.07, creatinine of 8.98, and hgb of 7.6. BNP of 2586. EKG indicates afib. - Diagnoses Provider Diagnoses: Chest pain - Provider Notifications Discussed Care Of Patient With: Thomas Li Time Discussed With Above Provider: 21:41 Instructed by Provider To: Admit As Inpatient - Critical Care Time Critical Care Time: 30-74 min Discharge - Discharge Plan Condition: Guarded Disposition: ADMITTED TO [facility] documentation as recorded by the Suman sosa Soohyun accurately reflects the service I personally performed and the decisions made by me, Morales Mendiola MD.
[2016-11-04] MEDS ORDERED: HYDROmorphone* 1 MG/ML 1 ML SYR IV SLOW PU ONE (22:13)
--- NOTE | 2016-11-04 23:03 | HP ---
H&P (Free Text) History and Physical: PCP: Kaiser Burns MD Date/Time of Evaluation: 11/04/2016 2257 CC: SOB HPI: Mrs Joseph is a 46YO female well known to the Hospitalist Service with a complex PMedHX outlined below. She presents with complaint of onset of cough 2 days ago with progressive SOB worsening today to the extent she decided to present for evaluation. She has had some sharp/stabbing L lateral chest pain worse with cough and deep inspiration. She has had some nausea, but only spit up saliva here in the ED. She reports subjective chills, but no fever or sweats. Bowels and bladder are baseline. She does urinate on average once daily. She continues to smoke ~2 cigarettes/day. 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 COPD CAD/MA chronic diastolic HF AFIB endocarditis anemia of renal disease HTN HLD depression/anxiety Ambulatory Orders ALPRAZolam TAB* [Xanax TAB*] 0.25 mg PO TID PRN 10/11/16 Aspirin Low Dose CHEW TAB* [Aspirin Low Dose TAB*] 81 mg PO DAILY 10/11/16 Atorvastatin* [Lipitor 80 MG*] 80 mg PO DAILY 10/11/16 B-Complex W/ C-Zn & Folic Acid [Dialyvite 800/Zinc 0.8 mg] 1 tab PO DAILY Cinacalcet HCl [Sensipar] 90 mg PO DAILY 10/11/16 Diltiazem CD CAP* [Cardizem CD CAP*] 240 mg PO DAILY 10/11/16 Gabapentin CAP(*) [Neurontin 100 mg CAP(*)] 100 mg PO TID 10/11/16 Labetalol TAB* [Trandate TAB*] 200 mg PO BID 10/11/16 Lidocaine-Prilocaine [Lidocaine/Prilocaine] 1 cre EX EVERY OTHER DAY 10/11/16 Metoprolol Tartrate TAB* [Lopressor TAB*] 25 mg PO BID 10/11/16 Montelukast Sodium TAB* [Singulair 10 MG TAB*] 10 mg PO DAILY 10/11/16 Oxycodone HCl [Oxycontin] 15 mg PO DAILY 10/11/16 Sodium Polystyrene ORAL.GISELA* [Kayexalate ORAL.GISELA*] 15 gm PO DAILY 10/11/16 Tiotropium [place] Monohydrate [Spiriva Respimat] 2.5 mcg IN DAILY 10/11/16 Vitamin E [Natural Vitamin E] 400 unit PO DAILY 10/11/16 amLODIPine TAB* [Norvasc 5 mg TAB*] 5 mg PO DAILY 10/11/16 diPHENhydraMINE PO* [Benadryl PO 25 MG TAB*] 25 mg PO BEDTIME PRN 10/11/16 Apixaban* [Eliquis*] 5 mg PO BID #60 tab 10/14/16 Benzonatate CAP* [Tessalon 100 MG CAP*] 100 mg PO TID #30 cap 10/14/16 Sevelamer TAB* [Renvela TAB*] 4,800 mg PO TID #0 10/14/16 guaiFENesin ER TAB [Mucinex*] 1,200 mg PO BID #30 tab.er 10/14/16 Allergies Iodixanol [From Visipaque] Allergy (Severe, Verified 10/26/16 14:17) Airway Obstruction Angioedema of tongue, upper airway Lisinopril Allergy (Severe, Verified 10/26/16 14:17) Difficulty Breathing Penicillins Allergy (Severe, Verified 10/26/16 14:17) HIVES,SWELLING THROAT Cephalosporins Allergy (Verified 10/26/16 14:17) not specified PSurgHx CABG porcine MVR & AVR hysterectomy knee arthroscopies SocHx: ~2cigarettes daily, denies alcohol and recreational drug HX; lives with her children; on disability; full code status FamHx: reviewed, non-contributory ROS: as above, otherwise reviewed and all were negative Constitutional: NAD, normally developed, overweight black female vitals: Vital Signs Temp 37.1 C 11/04/16 21:00 Pulse 90 11/04/16 22:30 Resp 24 11/04/16 22:45 BP 179/115 11/04/16 22:00 Pulse Ox 99 11/04/16 22:30 Intake & Output 11/03/16 11/04/16 11/04/16 23:59 11:59 23:59 Weight 85.729 kg HEENM: atraumatic; sclera/conjunctiva: non-icteric/mildly injected OU; hearing: clinically intact; oropharynx: clear, mucosa moist Neck: soft tissue: non-tender; thyroid: no mass or tenderness Pulmonary: scant diffuse crackles with minimal end-expiratory wheeze, prolonged expiratory phase, fair to poor aeration, no accessory muscle use CV: IR/IR, normal S1S2, 3/6 blowing systolic murmur; no jugular venous distention, 2+ B DP/PT, trace BLE edema, chest pain reproduced with lateral L chest wall palpation Abdominal: soft, non-distended, non-tender, no rebound/guarding/rigidity, normoactive bowel sounds, no hepatosplenomegaly or masses, no costovertebral angle tenderness Musculoskeletal: general: grossly intact, diffuse reproducible chest wall pain with light palpation worst in the L lateral chest overlying ribs; gait: stable Integumental: normal appearance and texture of exposed skin Psychiatric orientation: AA&O to PPS affect: anxious mood: cooperative eye contact: fair content: reliable responses: timely insight: fair to poor Testing: Lab Results 11/04/16 11/04/16 11/04/16 Range/Units 20:56 20:56 20:56 WBC 8.6 (3.5-10.8) 10^3/ul RBC 2.32 L (4.0-5.4) 10^6/ul Hgb 7.6 L (12.0-16.0) g/dl Hct 23 L (35-47) % MCV 99 H (80-97) fL MCH 33 H (27-31) pg MCHC 33 (31-36) g/dl RDW 18 H (10.5-15) % Plt Count 178 (150-450) 10^3/ul MPV 9 (7.4-10.4) um3 Absolute Neuts (auto) 5.8 (1.5-7.7) 10^3/ul Absolute Lymphs (auto) 1.5 (1.0-4.8) 10^3/ul Absolute Monos (auto) 0.9 H (0-0.8) 10^3/ul Absolute Eos (auto) 0.3 (0-0.6) 10^3/ul Absolute Basos (auto) 0.1 (0-0.2) 10^3/ul Absolute Nucleated RBC Not Reportable Neutrophils % 68 (38-83) % Lymphocytes % 18 L (25-47) % Monocytes % 10 (0-13) % Eosinophils % 3 (0-6) % Basophils % 1 (0-2) % Normal RBC Morphology Not Reportable Polychromasia 1+ Macrocytosis 2+ Elliptocytes 1+ Schistocytes 1+ Hem Pathologist Commnt Pending INR (Anticoag Therapy) 1.02 (0.89-1.11) Sodium 134 (133-145) mmol/L Potassium 4.1 (3.5-5.0) mmol/L Chloride 92 L (101-111) mmol/L Carbon Dioxide 31 (22-32) mmol/L Anion Gap 11 (2-11) mmol/L BUN 50 H (6-24) mg/dL Creatinine 8.98 H (0.51-0.95) mg/dL Est GFR ( Amer) 6.1 (>60) Est GFR (Non-Af Amer) 4.7 (>60) BUN/Creatinine Ratio 5.6 L (8-20) Glucose 89 (70-100) mg/dL Lactic Acid (0.5-2.0) mmol/L Calcium 9.9 (8.6-10.3) mg/dL Total Bilirubin 0.60 (0.2-1.0) mg/dL AST 18 (13-39) U/L ALT 12 (7-52) U/L Alkaline Phosphatase 70 (34-104) U/L Troponin I 0.07 H* (<0.04) ng/mL B-Natriuretic Peptide ( - 100) pg/mL Total Protein 6.6 (6.4-8.9) g/dL Albumin 4.0 (3.2-5.2) g/dL Globulin 2.6 (2-4) g/dL Albumin/Globulin Ratio 1.5 (1-3) 11/04/16 11/04/16 Range/Units 20:56 20:56 WBC (3.5-10.8) 10^3/ul RBC (4.0-5.4) 10^6/ul Hgb (12.0-16.0) g/dl Hct (35-47) % MCV (80-97) fL MCH (27-31) pg MCHC (31-36) g/dl RDW (10.5-15) % Plt Count (150-450) 10^3/ul MPV (7.4-10.4) um3 Absolute Neuts (auto) (1.5-7.7) 10^3/ul Absolute Lymphs (auto) (1.0-4.8) 10^3/ul Absolute Monos (auto) (0-0.8) 10^3/ul Absolute Eos (auto) (0-0.6) 10^3/ul Absolute Basos (auto) (0-0.2) 10^3/ul Absolute Nucleated RBC Neutrophils % (38-83) % Lymphocytes % (25-47) % Monocytes % (0-13) % Eosinophils % (0-6) % Basophils % (0-2) % Normal RBC Morphology Polychromasia Macrocytosis Elliptocytes Schistocytes Hem Pathologist Commnt INR (Anticoag Therapy) (0.89-1.11) Sodium (133-145) mmol/L Potassium (3.5-5.0) mmol/L Chloride (101-111) mmol/L Carbon Dioxide (22-32) mmol/L Anion Gap (2-11) mmol/L BUN (6-24) mg/dL Creatinine (0.51-0.95) mg/dL Est GFR ( Amer) (>60) Est GFR (Non-Af Amer) (>60) BUN/Creatinine Ratio (8-20) Glucose (70-100) mg/dL Lactic Acid 1.1 (0.5-2.0) mmol/L Calcium (8.6-10.3) mg/dL Total Bilirubin (0.2-1.0) mg/dL AST (13-39) U/L ALT (7-52) U/L Alkaline Phosphatase (34-104) U/L Troponin I (<0.04) ng/mL B-Natriuretic Peptide 2586 H ( - 100) pg/mL Total Protein (6.4-8.9) g/dL Albumin (3.2-5.2) g/dL Globulin (2-4) g/dL Albumin/Globulin Ratio (1-3) ECG, personally reviewed: AFIB rate 85, T inversion in V6 CXR, personally reviewed: IMPRESSION: CARDIOMEGALY WITH PULMONARY INTERSTITIAL EDEMA ECHO (09/10/2016): Conclusions: The left ventricular chamber size is borderline decreased. Severe concentric left ventricular hypertrophy is observed. There is normal left ventricular systolic function. The estimated ejection fraction is 60 -65%. The left atrium is severely dilated. The right ventricular chamber size and systolic function are within normal limits. The right atrium is moderately dilated. A bio-prosthetic aortic valve is present. Mild aortic valve regurgitation noted. There are abnormal elevated peak velocity and gradient through the aortic valve of uncertain cause/significance. Compared to earliest post-operative TTE available for review from 06/2014, the peak velocity/mean gradient are mildly more elevated from 3.4 m/s and 25.7 mmHg possibly suggestive of some progressive pathology. The peak velocity and mean gradient are improved from 5.1 m/s and 54.16 mmHg from 05/27/2016 TTE although patient had severe anemia (hemoglobin 6.7) at that time which could account for higher values then. The bioprosthesis/leaflets/LVOT are not well visualized. Impression: 45F with complex PMedHX as above presents with SOB likely 2nd volume overload DIAGNOSIS & PLAN Primary SOB 2nd combined volume overload & COPD exacerbation : see below COPD exacerbation : albuterol neb : mometasone/formoterol : tiotropium : IV methylprednisolone : azithromycin PO : guiafenesin : supplemental oxygen : incentive spirometry : supportive care ESRD w/ volume overload : 80mg IV furosemide x1 : consult Inna Osorio MD nephrology in AM for continuation of dialysis : continue sevelamer & cinacalcet once reconciled atypical chest pain : telemetry : trend troponin : doubt cardiac etiology, clinically more consistent with musculoskeletal chest wall pain : hold aspirin & beta clara at this time unless troponin trend upwards : troponin is elevated at 0.07 which is her baseline 2nd ESRD-HD ([facility]) AFIB : continue apixaban & diltiazem once reconciled Secondary anemia of renal disease : monitor periodically HTN : continue labetalol, amlodipine & diltiazem once reconciled HLD : continue atorvastatin once reconciled : heart healthy diet CAD/MA : continue aspirin once reconciled chronic diastolic HF : daily weights : strict I&Os : heart healthy diet anxiety : continue alprazolam once reconciled HX DVT/PE & superior vena cava syndrome : continue apixaban once reconciled Admission Rational: observation for SOB & chest pain DVTp: apixaban Code Status: full
[2016-11-04] MEDS ORDERED: Albuterol 2.5 MG/3 ML NEB.SOL* (0.083%) INH PRN (23:27)
[2016-11-04] MEDS ORDERED: methylPREDNISolone 125 MG* 2 ML VIAL IV ONE (23:33)
[2016-11-04] MEDS ORDERED: Melatonin (NF) 3 MG TAB PO PRN (23:33)
[2016-11-04] MEDS ORDERED: Nicotine Inhaler* 10 MG AMP INH PRN (23:33)
[2016-11-04] MEDS ORDERED: Furosemide IV* 10 MG/ML 10 ML VIAL (100 MG) IV ONE (23:37)
[2016-11-05] MEDS: Azithromycin TAB* 250 MG PO SCH ×2 (01:22→09:02)
[2016-11-05] MEDS: Ondansetron INJ* 2 MG/ML VIAL IV PRN ×2 (01:22→13:44)
[2016-11-05] MEDS: hydrALAZINE IV* 20 MG/ML VIAL IV PRN ×3 (01:38→23:53)
[2016-11-05] MEDS: Albuterol 2.5 MG/3 ML NEB.SOL* (0.083%) INH SCH ×3 (02:35→12:52)
[2016-11-05] MEDS: Acetaminophen TAB* 325 MG PO PRN (03:09)
[2016-11-05] MEDS: HYDROmorphone* 1 MG/ML 1 ML SYR IV PRN ×5 (04:40→19:41)
[2016-11-05 05:59] LABS: Hematocrit 24 % (35-47); Hemoglobin 7.8 g/dl (12.0-16.0); Mean Corpuscular HGB Conc 33 g/dl (31-36); Mean Corpuscular Hemoglobin 33 pg (27-31); Mean Corpuscular Volume 100 fL (80-97); Mean Platelet Volume 9 um3 (7.4-10.4); Red Blood Count 2.35 10^6/ul (4.0-5.4); Red Cell Distribution Width 19 % (10.5-15); White Blood Count 10.8 10^3/ul (3.5-10.8)
[2016-11-05 06:14] LABS: BUN/Creatinine Ratio 5.7 (8-20); Calcium 10.1 mg/dL (8.6-10.3); EGFR African American 5.7 (>60); EGFR Non-African American 4.5 (>60); Potassium 4.6 mmol/L (3.5-5.0)
[2016-11-05 06:36] LABS: Troponin I 0.07 ng/mL (<0.04)
[2016-11-05] MEDS: Omeprazole CAP* 20 MG PO SCH (07:23)
[2016-11-05] MEDS: LORazepam INJ* 2 MG/ML 1 ML VIAL IV PRN (07:41)
[2016-11-05] MEDS ORDERED: Spiriva Inhaler DEVICE* 1 EACH DEVICE INH ONE (09:00)
[2016-11-05] MEDS: Docusate CAP* 100 MG PO SCH ×2 (09:02→19:40)
[2016-11-05] MEDS: guaiFENesin ER TAB 600 MG PO SCH ×2 (09:02→19:39)
[2016-11-05] MEDS: methylPREDNISolone SOD 40 MG* 1 ML VIAL IV SCH ×2 (09:03→16:55)
[2016-11-05] MEDS: Tiotropium CAP.INH* CAP.INH/18 MCG INH SCH (09:11)
[2016-11-05] MEDS: Mometasone/Formoter 200/5 MDI INH SCH ×2 (09:11→21:56)
[2016-11-05] MEDS: Labetalol TAB* 200 MG PO SCH ×2 (09:20→19:38)
[2016-11-05] MEDS: Gabapentin CAP(*) 100 MG PO SCH ×3 (09:20→19:40)
[2016-11-05] MEDS: Diltiazem CD CAP* 240 MG PO SCH (09:20)
[2016-11-05] MEDS: Metoprolol Tartrate TAB* 25 MG PO SCH ×2 (09:20→19:41)
[2016-11-05] MEDS: Montelukast Sodium TAB* 10 MG PO SCH (09:20)
[2016-11-05] MEDS: Aspirin Low Dose CHEW TAB* 81 MG PO SCH (09:21)
[2016-11-05] MEDS: Sevelamer TAB* 800 MG PO SCH ×3 (09:23→19:38)
[2016-11-05] MEDS: Atorvastatin* 80 MG TAB PO SCH (09:24)
[2016-11-05] MEDS: amLODIPine TAB* 5 MG PO SCH (09:25)
[2016-11-05] MEDS: Cinacalcet TAB* 30 MG PO SCH (10:18)
[2016-11-05] MEDS: Apixaban* 5 MG TAB PO SCH ×2 (10:18→19:39)
[2016-11-05] MEDS ORDERED: Albuterol 2.5 MG/3 ML NEB.SOL* (0.083%) INH PRN (13:16)
--- NOTE | 2016-11-05 15:45 | PN ---
Subjective Date of Service: 11/05/16 Interval History: Seen with daughter at bedside Pt has had progressively worsening dyspnea over the last month She previously was able to perform very light housework and now is SOB at rest. She has a chronic cough, no fevers, no N/V She is tearful today because of her recurrent hospital admissions. Objective Active Medications: Acetaminophen (Tylenol Tab*) 650 mg PO Q6H PRN PRN Reason: FEVER/PAIN Last Admin: 11/05/16 03:09 Dose: 650 mg Albuterol (Ventolin 2.5 Mg/3 Ml Neb.Tonya*) 2.5 mg INH Q2H PRN PRN Reason: SOB/WHEEZING Albuterol (Ventolin 2.5 Mg/3 Ml Neb.Tonya*) 2.5 mg INH Q4H PRN PRN Reason: SOB/WHEEZING Amlodipine Besylate (Norvasc Tab*) 5 mg PO DAILY [facility] Last Admin: 11/05/16 09:25 Dose: 5 mg Apixaban (Eliquis*) 5 mg PO BID [facility] Last Admin: 11/05/16 10:18 Dose: 5 mg Aspirin (Aspirin Low Dose Tab*) 81 mg PO DAILY [facility] Last Admin: 11/05/16 09:21 Dose: 81 mg Atorvastatin Calcium (Lipitor*) 80 mg PO DAILY [facility] Last Admin: 11/05/16 09:24 Dose: 80 mg Azithromycin (Zithromax Tab*) 500 mg PO DAILY [facility] Last Admin: 11/05/16 09:02 Dose: 500 mg Cinacalcet (Sensipar Tab*) 90 mg PO DAILY [facility] Last Admin: 11/05/16 10:18 Dose: 90 mg Diltiazem HCl (Cardizem Cd Cap*) 240 mg PO DAILY [facility] Last Admin: 11/05/16 09:20 Dose: 240 mg Docusate Sodium (Colace Cap*) 200 mg PO BID [facility] Last Admin: 11/05/16 09:02 Dose: 200 mg Gabapentin (Neurontin Cap(*)) 100 mg PO TID [facility] Last Admin: 11/05/16 13:43 Dose: 100 mg Guaifenesin (Mucinex*) 1,200 mg PO BID [facility] Last Admin: 11/05/16 09:02 Dose: 1,200 mg Hydralazine HCl (Apresoline Iv*) 10 mg IV Q4H PRN PRN Reason: Systolic >170 Last Admin: 11/05/16 07:41 Dose: 10 mg Hydromorphone HCl (Dilaudid Iv*) 0.5 mg IV Q2H PRN PRN Reason: PAIN Last Admin: 11/05/16 12:12 Dose: 0.5 mg Labetalol HCl (Trandate Tab*) 200 mg PO BID [facility] Last Admin: 11/05/16 09:20 Dose: 200 mg Lorazepam (Ativan Inj*) 1 mg IV Q6H PRN PRN Reason: ANXIETY Last Admin: 11/05/16 07:41 Dose: 1 mg Melatonin (Melatonin (Nf)) 3 mg PO BEDTIME PRN; Protocol PRN Reason: Sleep Methylprednisolone Sodium Succinate (Solu-Medrol 40 Mg) 40 mg IV Q8H [facility] Last Admin: 11/05/16 09:03 Dose: 40 mg Metoprolol Tartrate (Lopressor Tab*) 25 mg PO BID [facility] Last Admin: 11/05/16 09:20 Dose: 25 mg Mometasone Furoate/Formoterol Fumar (Dulera 200/5 Mdi*) 2 puff INH BID [facility] Last Admin: 11/05/16 09:11 Dose: 2 puff Montelukast Sodium (Singulair Tab*) 10 mg PO DAILY [facility] Last Admin: 11/05/16 09:20 Dose: 10 mg Nicotine (Nicotine Inhaler*) 10 mg INH Q2H PRN PRN Reason: CRAVING Omeprazole (Prilosec Cap*) 20 mg PO DAILY@0600 [facility] Last Admin: 11/05/16 07:23 Dose: 20 mg Ondansetron HCl (Zofran Inj*) 4 mg IV Q6H PRN PRN Reason: NAUSEA Last Admin: 11/05/16 13:44 Dose: 4 mg Sevelamer Carbonate (Renvela Tab*) 4,800 mg PO TID [facility] Last Admin: 11/05/16 13:44 Dose: 4,800 mg Tiotropium [place] (Spiriva Cap.Inh*) 1 cap INH DAILY [facility] Last Admin: 11/05/16 09:11 Dose: 1 cap Vital Signs 11/04/16 11/05/16 11/05/16 23:30 00:00 00:01 Temperature Pulse Rate 88 60 88 Respiratory 13 24 12 Rate Blood Pressure 192/114 172/113 (mmHg) O2 Sat by Pulse 100 94 98 Oximetry 11/05/16 11/05/16 11/05/16 00:30 00:46 01:04 Temperature 98.5 F Pulse Rate 76 85 Respiratory 19 28 Rate Blood Pressure 195/124 (mmHg) O2 Sat by Pulse 99 95 Oximetry 11/05/16 11/05/16 11/05/16 02:34 02:36 02:40 Temperature 98.5 F Pulse Rate 85 118 Respiratory 28 Rate Blood Pressure 194/104 (mmHg) O2 Sat by Pulse 95 96 96 Oximetry 11/05/16 11/05/16 11/05/16 04:28 04:40 05:40 Temperature 98.1 F Pulse Rate 109 Respiratory 16 20 22 Rate Blood Pressure 164/96 (mmHg) O2 Sat by Pulse 100 Oximetry 11/05/16 11/05/16 11/05/16 07:29 07:41 08:15 Temperature 97.9 F Pulse Rate 134 Respiratory 16 22 Rate Blood Pressure 184/127 153/110 (mmHg) O2 Sat by Pulse 100 Oximetry 11/05/16 11/05/16 11/05/16 08:41 09:03 09:13 Temperature Pulse Rate 139 Respiratory 20 20 18 Rate Blood Pressure (mmHg) O2 Sat by Pulse 99 Oximetry 11/05/16 11/05/16 11/05/16 09:20 10:03 11:20 Temperature Pulse Rate Respiratory 20 20 18 Rate Blood Pressure (mmHg) O2 Sat by Pulse Oximetry 11/05/16 11/05/16 11/05/16 11:47 12:12 12:55 Temperature 97.4 F Pulse Rate 102 84 Respiratory 18 18 18 Rate Blood Pressure 148/110 (mmHg) O2 Sat by Pulse 96 100 Oximetry 11/05/16 11/05/16 13:12 13:43 Temperature Pulse Rate Respiratory 18 18 Rate Blood Pressure (mmHg) O2 Sat by Pulse Oximetry Oxygen Devices in Use Now: Nasal Cannula Appearance: chronically ill appearing, tearful, no respiratory distress Eyes: No Scleral Icterus, PERRLA Ears/Nose/Mouth/Throat: Clear Oropharnyx Neck: Trachea Midline, No Thyroid Enlargement, Masses Respiratory: Symmetrical Chest Expansion and Respiratory Effort, Clear to Auscultation Cardiovascular: - - IRIR Abdominal: NL Sounds; No Tenderness; No Distention, No Hepatosplenomegaly Extremities: No Edema Neurological: Alert and Oriented x 3 Result Diagrams: 11/05/16 05:22 11/05/16 05:22 Additional Lab and Data: Lab Results 11/04/16 11/04/16 11/04/16 Range/Units 20:56 20:56 20:56 WBC 8.6 (3.5-10.8) 10^3/ul RBC 2.32 L (4.0-5.4) 10^6/ul Hgb 7.6 L (12.0-16.0) g/dl Hct 23 L (35-47) % MCV 99 H (80-97) fL MCH 33 H (27-31) pg MCHC 33 (31-36) g/dl RDW 18 H (10.5-15) % Plt Count 178 (150-450) 10^3/ul MPV 9 (7.4-10.4) um3 Absolute Neuts (auto) 5.8 (1.5-7.7) 10^3/ul Absolute Lymphs (auto) 1.5 (1.0-4.8) 10^3/ul Absolute Monos (auto) 0.9 H (0-0.8) 10^3/ul Absolute Eos (auto) 0.3 (0-0.6) 10^3/ul Absolute Basos (auto) 0.1 (0-0.2) 10^3/ul Absolute Nucleated RBC Not Reportable Neutrophils % 68 (38-83) % Lymphocytes % 18 L (25-47) % Monocytes % 10 (0-13) % Eosinophils % 3 (0-6) % Basophils % 1 (0-2) % Normal RBC Morphology Not Reportable Polychromasia 1+ Macrocytosis 2+ Elliptocytes 1+ Schistocytes 1+ Hem Pathologist Commnt Pending INR (Anticoag Therapy) 1.02 (0.89-1.11) Sodium 134 (133-145) mmol/L Potassium 4.1 (3.5-5.0) mmol/L Chloride 92 L (101-111) mmol/L Carbon Dioxide 31 (22-32) mmol/L Anion Gap 11 (2-11) mmol/L BUN 50 H (6-24) mg/dL Creatinine 8.98 H (0.51-0.95) mg/dL Est GFR ( Amer) 6.1 (>60) Est GFR (Non-Af Amer) 4.7 (>60) BUN/Creatinine Ratio 5.6 L (8-20) Glucose 89 (70-100) mg/dL Lactic Acid (0.5-2.0) mmol/L Calcium 9.9 (8.6-10.3) mg/dL Total Bilirubin 0.60 (0.2-1.0) mg/dL AST 18 (13-39) U/L ALT 12 (7-52) U/L Alkaline Phosphatase 70 (34-104) U/L Troponin I 0.07 H* (<0.04) ng/mL B-Natriuretic Peptide ( - 100) pg/mL Total Protein 6.6 (6.4-8.9) g/dL Albumin 4.0 (3.2-5.2) g/dL Globulin 2.6 (2-4) g/dL Albumin/Globulin Ratio 1.5 (1-3) 11/04/16 11/04/16 Range/Units 20:56 20:56 WBC (3.5-10.8) 10^3/ul RBC (4.0-5.4) 10^6/ul Hgb (12.0-16.0) g/dl Hct (35-47) % MCV (80-97) fL MCH (27-31) pg MCHC (31-36) g/dl RDW (10.5-15) % Plt Count (150-450) 10^3/ul MPV (7.4-10.4) um3 Absolute Neuts (auto) (1.5-7.7) 10^3/ul Absolute Lymphs (auto) (1.0-4.8) 10^3/ul Absolute Monos (auto) (0-0.8) 10^3/ul Absolute Eos (auto) (0-0.6) 10^3/ul Absolute Basos (auto) (0-0.2) 10^3/ul Absolute Nucleated RBC Neutrophils % (38-83) % Lymphocytes % (25-47) % Monocytes % (0-13) % Eosinophils % (0-6) % Basophils % (0-2) % Normal RBC Morphology Polychromasia Macrocytosis Elliptocytes Schistocytes Hem Pathologist Commnt INR (Anticoag Therapy) (0.89-1.11) Sodium (133-145) mmol/L Potassium (3.5-5.0) mmol/L Chloride (101-111) mmol/L Carbon Dioxide (22-32) mmol/L Anion Gap (2-11) mmol/L BUN (6-24) mg/dL Creatinine (0.51-0.95) mg/dL Est GFR ( Amer) (>60) Est GFR (Non-Af Amer) (>60) BUN/Creatinine Ratio (8-20) Glucose (70-100) mg/dL Lactic Acid 1.1 (0.5-2.0) mmol/L Calcium (8.6-10.3) mg/dL Total Bilirubin (0.2-1.0) mg/dL AST (13-39) U/L ALT (7-52) U/L Alkaline Phosphatase (34-104) U/L Troponin I (<0.04) ng/mL B-Natriuretic Peptide 2586 H ( - 100) pg/mL Total Protein (6.4-8.9) g/dL Albumin (3.2-5.2) g/dL Globulin (2-4) g/dL Albumin/Globulin Ratio (1-3) Assess/Plan/Problems-Billing Assessment: 46 yo F h/o ESRD on HD x 10 yr, pulmonary embolism c/b alveolar hemorrhage, afib , AVR complicated by stenosis and perc balloon dilitation p/w progressively worsening SOB - Patient Problems (1) Afib Comment: dilr, toprol, labetalol eliquis (2) Shortness of breath Comment: Up 2 kg from dry weight CXR with vascualr congestion Suspect need for additional dialysis in conjunction with worsening heart failure and underlying lung disease. Ms. Joseph has been chronically ill and unable to stay out of the hospital for more than 2 months at a time. I discussed the progressive nature of her disease with her and her daughter. Pt's goal is to "live" and "survive" to teach her daughter the things she feels she has not had time to impart on her. We disucssed the conflict between her desire to live and her desire to not come to the hospital. (3) S/P AVR (aortic valve replacement) Comment: possible worsening disease on last TTE. Can consider [place] if no improvement in breathing after dialysis (4) ESRD (end stage renal disease) on dialysis Comment: HD T/T/Sat as outpatient Dialysis tomorrow (5) DVT prophylaxis Comment: jonathon (6) Pulmonary embolism Current Visit: No Status: Chronic Priority: High Onset Date: 05/31/14 Code(s): I26.99 - OTHER PULMONARY EMBOLISM WITHOUT ACUTE COR PULMONALE SNOMED Code(s): 07026872 Comment: Restarting coumadin.
[2016-11-06] MEDS: HYDROmorphone* 1 MG/ML 1 ML SYR IV PRN ×8 (00:04→22:14)
[2016-11-06] MEDS: Omeprazole CAP* 20 MG PO SCH (05:04)
[2016-11-06] MEDS: Tiotropium CAP.INH* CAP.INH/18 MCG INH SCH (07:39)
[2016-11-06] MEDS: Mometasone/Formoter 200/5 MDI INH SCH ×2 (07:40→20:31)
[2016-11-06] MEDS: Gabapentin CAP(*) 100 MG PO SCH ×3 (08:46→19:53)
[2016-11-06] MEDS: Docusate CAP* 100 MG PO SCH ×2 (08:46→19:52)
[2016-11-06] MEDS: Sevelamer TAB* 800 MG PO SCH ×3 (08:46→19:50)
[2016-11-06] MEDS: Labetalol TAB* 200 MG PO SCH ×2 (08:47→19:53)
[2016-11-06] MEDS: methylPREDNISolone SOD 40 MG* 1 ML VIAL IV SCH ×3 (08:47→17:30)
[2016-11-06] MEDS: Metoprolol Tartrate TAB* 25 MG PO SCH ×2 (08:47→19:53)
[2016-11-06] MEDS: guaiFENesin ER TAB 600 MG PO SCH ×2 (08:47→19:54)
[2016-11-06] MEDS: Apixaban* 5 MG TAB PO SCH ×2 (08:47→19:55)
[2016-11-06] MEDS ORDERED: Heparin DIALYSIS ONLY(*) 1,000 UNITS/ML VIAL DIALYSIS ONE (13:00)
[2016-11-06] MEDS ORDERED: Epoetin Alfa* 3,000 UNITS/ML VIAL IV ONE (14:00)
[2016-11-06] MEDS ORDERED: Epoetin Alfa* 4,000 UNITS/ML VIAL IV ONE (14:00)
[2016-11-06] MEDS: Atorvastatin* 80 MG TAB PO SCH (15:12)
[2016-11-06] MEDS: Cinacalcet TAB* 30 MG PO SCH (15:12)
[2016-11-06] MEDS: Azithromycin TAB* 250 MG PO SCH (15:13)
[2016-11-06] MEDS: amLODIPine TAB* 5 MG PO SCH (15:13)
[2016-11-06] MEDS: Montelukast Sodium TAB* 10 MG PO SCH (15:13)
[2016-11-06] MEDS: Aspirin Low Dose CHEW TAB* 81 MG PO SCH (15:13)
[2016-11-06] MEDS: Diltiazem CD CAP* 240 MG PO SCH (15:13)
[2016-11-06] MEDS: Nitroglycerin TAB 0.4 MG* 0.4 MG TAB SL PRN (17:01)
--- NOTE | 2016-11-06 18:31 | PN ---
Subjective Date of Service: 11/06/16 Interval History: Breathing feels no better Has sensation of a "knot" in her stomach no N/V Objective Active Medications: Acetaminophen (Tylenol Tab*) 650 mg PO Q6H PRN PRN Reason: FEVER/PAIN Last Admin: 11/05/16 03:09 Dose: 650 mg Albuterol (Ventolin 2.5 Mg/3 Ml Neb.Tonya*) 2.5 mg INH Q2H PRN PRN Reason: SOB/WHEEZING Albuterol (Ventolin 2.5 Mg/3 Ml Neb.Tonya*) 2.5 mg INH Q4H PRN PRN Reason: SOB/WHEEZING Amlodipine Besylate (Norvasc Tab*) 5 mg PO DAILY [facility] Last Admin: 11/06/16 15:13 Dose: 5 mg Apixaban (Eliquis*) 5 mg PO BID [facility] Last Admin: 11/06/16 08:47 Dose: 5 mg Aspirin (Aspirin Low Dose Tab*) 81 mg PO DAILY [facility] Last Admin: 11/06/16 15:13 Dose: 81 mg Atorvastatin Calcium (Lipitor*) 80 mg PO DAILY [facility] Last Admin: 11/06/16 15:12 Dose: 80 mg Azithromycin (Zithromax Tab*) 500 mg PO DAILY [facility] Last Admin: 11/06/16 15:13 Dose: 500 mg Cinacalcet (Sensipar Tab*) 90 mg PO DAILY [facility] Last Admin: 11/06/16 15:12 Dose: 90 mg Diltiazem HCl (Cardizem Cd Cap*) 240 mg PO DAILY [facility] Last Admin: 11/06/16 15:13 Dose: 240 mg Docusate Sodium (Colace Cap*) 200 mg PO BID [facility] Last Admin: 11/06/16 08:46 Dose: 200 mg Gabapentin (Neurontin Cap(*)) 100 mg PO TID [facility] Last Admin: 11/06/16 15:12 Dose: 100 mg Guaifenesin (Mucinex*) 1,200 mg PO BID [facility] Last Admin: 11/06/16 08:47 Dose: 1,200 mg Hydralazine HCl (Apresoline Iv*) 10 mg IV Q4H PRN PRN Reason: Systolic >170 Last Admin: 11/05/16 23:53 Dose: 10 mg Hydromorphone HCl (Dilaudid Iv*) 0.5 mg IV Q2H PRN PRN Reason: PAIN Last Admin: 11/06/16 17:30 Dose: 0.5 mg Labetalol HCl (Trandate Tab*) 200 mg PO BID [facility] Last Admin: 11/06/16 08:47 Dose: 200 mg Lorazepam (Ativan Inj*) 1 mg IV Q6H PRN PRN Reason: ANXIETY Last Admin: 11/05/16 07:41 Dose: 1 mg Melatonin (Melatonin (Nf)) 3 mg PO BEDTIME PRN; Protocol PRN Reason: Sleep Methylprednisolone Sodium Succinate (Solu-Medrol 40 Mg) 40 mg IV Q8H [facility] Last Admin: 11/06/16 17:30 Dose: 40 mg Metoprolol Tartrate (Lopressor Tab*) 25 mg PO BID [facility] Last Admin: 11/06/16 08:47 Dose: 25 mg Mometasone Furoate/Formoterol Fumar (Dulera 200/5 Mdi*) 2 puff INH BID [facility] Last Admin: 11/06/16 07:40 Dose: 2 puff Montelukast Sodium (Singulair Tab*) 10 mg PO DAILY [facility] Last Admin: 11/06/16 15:13 Dose: 10 mg Nicotine (Nicotine Inhaler*) 10 mg INH Q2H PRN PRN Reason: CRAVING Nitroglycerin (Nitroglycerin Tab 0.4 Mg*) 0.4 mg SL Q5M PRN PRN Reason: ANGINA Last Admin: 11/06/16 17:01 Dose: 0.4 mg Omeprazole (Prilosec Cap*) 20 mg PO DAILY@0600 [facility] Last Admin: 11/06/16 05:04 Dose: 20 mg Ondansetron HCl (Zofran Inj*) 4 mg IV Q6H PRN PRN Reason: NAUSEA Last Admin: 11/05/16 13:44 Dose: 4 mg Sevelamer Carbonate (Renvela Tab*) 4,800 mg PO TID [facility] Last Admin: 11/06/16 12:57 Dose: 4,800 mg Tiotropium [place] (Spiriva Cap.Inh*) 1 cap INH DAILY [facility] Last Admin: 11/06/16 07:39 Dose: 1 cap Vital Signs 11/05/16 11/05/16 11/05/16 19:27 19:40 19:41 Temperature 99.2 F Pulse Rate 98 Respiratory 16 18 18 Rate Blood Pressure 158/105 (mmHg) O2 Sat by Pulse 100 Oximetry 11/05/16 11/05/16 11/05/16 20:27 21:16 21:57 Temperature Pulse Rate 106 Respiratory 18 18 99 Rate Blood Pressure (mmHg) O2 Sat by Pulse 99 Oximetry 11/05/16 11/06/16 11/06/16 23:47 00:04 01:04 Temperature 98.0 F Pulse Rate 101 Respiratory 16 20 16 Rate Blood Pressure 178/119 (mmHg) O2 Sat by Pulse 100 Oximetry 11/06/16 11/06/16 11/06/16 03:26 03:54 04:26 Temperature 98.4 F Pulse Rate 110 Respiratory 18 16 18 Rate Blood Pressure 169/120 (mmHg) O2 Sat by Pulse 100 Oximetry 11/06/16 11/06/16 11/06/16 07:40 08:00 08:08 Temperature 98.2 F Pulse Rate 106 91 Respiratory 16 20 Rate Blood Pressure 155/110 (mmHg) O2 Sat by Pulse 96 97 Oximetry 11/06/16 11/06/16 11/06/16 08:46 08:50 11:09 Temperature Pulse Rate Respiratory 16 16 16 Rate Blood Pressure (mmHg) O2 Sat by Pulse Oximetry 11/06/16 11/06/16 11/06/16 11:48 15:12 15:18 Temperature Pulse Rate Respiratory 16 18 18 Rate Blood Pressure (mmHg) O2 Sat by Pulse Oximetry 11/06/16 11/06/16 11/06/16 16:06 16:18 17:12 Temperature 98.3 F Pulse Rate 104 Respiratory 20 16 16 Rate Blood Pressure 147/97 (mmHg) O2 Sat by Pulse 90 Oximetry 11/06/16 17:30 Temperature Pulse Rate Respiratory 16 Rate Blood Pressure (mmHg) O2 Sat by Pulse Oximetry Oxygen Devices in Use Now: Nasal Cannula Appearance: NAD Eyes: No Scleral Icterus, PERRLA Ears/Nose/Mouth/Throat: Mucous Membranes Moist Neck: NL Appearance and Movements; NL JVP, Trachea Midline Respiratory: Symmetrical Chest Expansion and Respiratory Effort, - - trace rales in right base Cardiovascular: - - IRIR, 3/6 MYRNA rusb Abdominal: NL Sounds; No Tenderness; No Distention, No Hepatosplenomegaly Lymphatic: No Cervical Adenopathy Extremities: No Edema Neurological: Alert and Oriented x 3 Result Diagrams: 11/05/16 05:22 11/05/16 05:22 Additional Lab and Data: Lab Results 11/04/16 11/04/16 11/04/16 Range/Units 20:56 20:56 20:56 WBC 8.6 (3.5-10.8) 10^3/ul RBC 2.32 L (4.0-5.4) 10^6/ul Hgb 7.6 L (12.0-16.0) g/dl Hct 23 L (35-47) % MCV 99 H (80-97) fL MCH 33 H (27-31) pg MCHC 33 (31-36) g/dl RDW 18 H (10.5-15) % Plt Count 178 (150-450) 10^3/ul MPV 9 (7.4-10.4) um3 Absolute Neuts (auto) 5.8 (1.5-7.7) 10^3/ul Absolute Lymphs (auto) 1.5 (1.0-4.8) 10^3/ul Absolute Monos (auto) 0.9 H (0-0.8) 10^3/ul Absolute Eos (auto) 0.3 (0-0.6) 10^3/ul Absolute Basos (auto) 0.1 (0-0.2) 10^3/ul Absolute Nucleated RBC Not Reportable Neutrophils % 68 (38-83) % Lymphocytes % 18 L (25-47) % Monocytes % 10 (0-13) % Eosinophils % 3 (0-6) % Basophils % 1 (0-2) % Normal RBC Morphology Not Reportable Polychromasia 1+ Macrocytosis 2+ Elliptocytes 1+ Schistocytes 1+ Hem Pathologist Commnt Pending INR (Anticoag Therapy) 1.02 (0.89-1.11) Sodium 134 (133-145) mmol/L Potassium 4.1 (3.5-5.0) mmol/L Chloride 92 L (101-111) mmol/L Carbon Dioxide 31 (22-32) mmol/L Anion Gap 11 (2-11) mmol/L BUN 50 H (6-24) mg/dL Creatinine 8.98 H (0.51-0.95) mg/dL Est GFR ( Amer) 6.1 (>60) Est GFR (Non-Af Amer) 4.7 (>60) BUN/Creatinine Ratio 5.6 L (8-20) Glucose 89 (70-100) mg/dL Lactic Acid (0.5-2.0) mmol/L Calcium 9.9 (8.6-10.3) mg/dL Total Bilirubin 0.60 (0.2-1.0) mg/dL AST 18 (13-39) U/L ALT 12 (7-52) U/L Alkaline Phosphatase 70 (34-104) U/L Troponin I 0.07 H* (<0.04) ng/mL B-Natriuretic Peptide ( - 100) pg/mL Total Protein 6.6 (6.4-8.9) g/dL Albumin 4.0 (3.2-5.2) g/dL Globulin 2.6 (2-4) g/dL Albumin/Globulin Ratio 1.5 (1-3) 11/04/16 11/04/16 Range/Units 20:56 20:56 WBC (3.5-10.8) 10^3/ul RBC (4.0-5.4) 10^6/ul Hgb (12.0-16.0) g/dl Hct (35-47) % MCV (80-97) fL MCH (27-31) pg MCHC (31-36) g/dl RDW (10.5-15) % Plt Count (150-450) 10^3/ul MPV (7.4-10.4) um3 Absolute Neuts (auto) (1.5-7.7) 10^3/ul Absolute Lymphs (auto) (1.0-4.8) 10^3/ul Absolute Monos (auto) (0-0.8) 10^3/ul Absolute Eos (auto) (0-0.6) 10^3/ul Absolute Basos (auto) (0-0.2) 10^3/ul Absolute Nucleated RBC Neutrophils % (38-83) % Lymphocytes % (25-47) % Monocytes % (0-13) % Eosinophils % (0-6) % Basophils % (0-2) % Normal RBC Morphology Polychromasia Macrocytosis Elliptocytes Schistocytes Hem Pathologist Commnt INR (Anticoag Therapy) (0.89-1.11) Sodium (133-145) mmol/L Potassium (3.5-5.0) mmol/L Chloride (101-111) mmol/L Carbon Dioxide (22-32) mmol/L Anion Gap (2-11) mmol/L BUN (6-24) mg/dL Creatinine (0.51-0.95) mg/dL Est GFR ( Amer) (>60) Est GFR (Non-Af Amer) (>60) BUN/Creatinine Ratio (8-20) Glucose (70-100) mg/dL Lactic Acid 1.1 (0.5-2.0) mmol/L Calcium (8.6-10.3) mg/dL Total Bilirubin (0.2-1.0) mg/dL AST (13-39) U/L ALT (7-52) U/L Alkaline Phosphatase (34-104) U/L Troponin I (<0.04) ng/mL B-Natriuretic Peptide 2586 H ( - 100) pg/mL Total Protein (6.4-8.9) g/dL Albumin (3.2-5.2) g/dL Globulin (2-4) g/dL Albumin/Globulin Ratio (1-3) Assess/Plan/Problems-Billing Assessment: 46 yo F h/o ESRD on HD x 10 yr, pulmonary embolism c/b alveolar hemorrhage, afib , AVR complicated by stenosis and perc balloon dilitation p/w progressively worsening SOB - Patient Problems (1) Shortness of breath Comment: 5 kg removed at dialysis 11/06 without imrpovement in SOB repeat CXR s/p dialysis Reveiwed TTE from August with cardiology who agree with previous read that AV may be compromised and a TAWANA would be appropriate to evaluate. TAWANA ordered for tomorrow, will need anesthesia given her risk. (2) Afib Comment: dilt, toprol, labetalol jonatohn (3) S/P AVR (aortic valve replacement) Comment: possible worsening disease on last TTE. Suspect contributing to progressive SOB plan on TAWANA (4) ESRD (end stage renal disease) on dialysis Comment: HD T/T/Sat as outpatient last friday (5) DVT prophylaxis Comment: jonathon
--- NOTE | 2016-11-06 21:09 | RAD ---
INDICATION: COPD exacerbation. End-stage renal disease. Chest pain Volume overload. Reassessment post dialysis. COMPARISON: November 04, 2016 TECHNIQUE: Dual energy PA and routine lateral views of the chest were obtained. REPORT: Decreased prominence of the central pulmonary vasculature and interstitial markings. Minimal bilateral linear subsegmental atelectasis. Clear pleural spaces. Negative for pneumothorax. Median sternotomy wires and prosthetic aortic valve. Severe cardiomegaly without gross change. IMPRESSION: Improvement in pulmonary vascular congestion and interstitial edema compared with the November 04, 2016 exam.
[2016-11-06] MEDS: LORazepam INJ* 2 MG/ML 1 ML VIAL IV PRN (22:14)
[2016-11-07] MEDS: HYDROmorphone* 1 MG/ML 1 ML SYR IV PRN ×6 (00:42→20:16)
[2016-11-07] MEDS: methylPREDNISolone SOD 40 MG* 1 ML VIAL IV SCH ×3 (00:55→15:54)
[2016-11-07] MEDS: Omeprazole CAP* 20 MG PO SCH (05:01)
[2016-11-07] MEDS: Mometasone/Formoter 200/5 MDI INH SCH ×2 (08:05→20:34)
[2016-11-07] MEDS: Tiotropium CAP.INH* CAP.INH/18 MCG INH SCH (08:05)
[2016-11-07] MEDS: Gabapentin CAP(*) 100 MG PO SCH ×3 (08:52→20:24)
[2016-11-07] MEDS: Diltiazem CD CAP* 240 MG PO SCH (08:53)
[2016-11-07] MEDS: amLODIPine TAB* 5 MG PO SCH (08:53)
[2016-11-07] MEDS: Labetalol TAB* 200 MG PO SCH ×2 (08:53→20:23)
[2016-11-07] MEDS: guaiFENesin ER TAB 600 MG PO SCH ×2 (08:53→20:25)
[2016-11-07] MEDS: Montelukast Sodium TAB* 10 MG PO SCH (08:53)
[2016-11-07] MEDS: Apixaban* 5 MG TAB PO SCH ×2 (08:53→22:20)
[2016-11-07] MEDS: Aspirin Low Dose CHEW TAB* 81 MG PO SCH (08:53)
[2016-11-07] MEDS: Azithromycin TAB* 250 MG PO SCH (08:54)
[2016-11-07] MEDS: Atorvastatin* 80 MG TAB PO SCH (08:54)
[2016-11-07] MEDS: Metoprolol Tartrate TAB* 25 MG PO SCH ×2 (08:54→20:26)
[2016-11-07] MEDS: Cinacalcet TAB* 30 MG PO SCH (08:55)
[2016-11-07] MEDS: Docusate CAP* 100 MG PO SCH ×2 (08:55→20:22)
[2016-11-07] MEDS: Sevelamer TAB* 800 MG PO SCH ×3 (08:56→20:26)
[2016-11-07] MEDS ORDERED: Buffered Lidocaine 0.9% SYRIN* 5 ML/SYR SYRINGE INTRADERM ONE (10:18)
[2016-11-07] MEDS ORDERED: Famotidine IV* 10 MG/ML 2 ML (20 mg) IV ONE (10:18)
[2016-11-07] MEDS ORDERED: Propofol* 10 MG/ML 20 ML BTL IV PUSH ONE (10:55)
[2016-11-07] MEDS ORDERED: Lidocaine 2% PF * 5 ML VIAL ONE (10:55)
[2016-11-07] MEDS ORDERED: Ondansetron INJ* 2 MG/ML VIAL ONE (10:55)
[2016-11-07] MEDS ORDERED: fentaNYL* 50 MCG/ML 2 ML VIAL (100 MCG VIAL) ONE (10:55)
[2016-11-07] MEDS ORDERED: Dexamethasone IV* 4 MG/ML 1 ML (4 MG) ONE (10:55)
[2016-11-07] MEDS ORDERED: KETAMINE HCL* 50 MG/ML 10 ML VIAL ONE (10:56)
[2016-11-07] MEDS ORDERED: Midazolam* 1 MG/ML 5 ML VIAL (5 MG) ONE (10:56)
[2016-11-07] MEDS ORDERED: NS 0.45% 1000 ML BAG* 1,000 ML IV SCH (11:00)
[2016-11-07] MEDS ORDERED: fentaNYL* 50 MCG/ML 2 ML VIAL (100 MCG VIAL) IV PRN (12:18)
[2016-11-07] MEDS ORDERED: DiMENhydriNATE IV* 50 MG/ML VIAL IV PUSH PRN (12:18)
[2016-11-07] MEDS: LORazepam INJ* 2 MG/ML 1 ML VIAL IV PRN ×2 (15:55→22:23)
--- NOTE | 2016-11-07 17:23 | ECHO ---
Amended Report Patient: CLARISA CANTU [facility] Rec#: [id number] : 1970 Date: 11/07/2016 Age: 46y Height: 175.3 cm / 69.0 in Weight: 87.5 kg / 192.9 lbs Sex: F BSA: 2 Room#: [facility] Referring: Diogo Burns MD Reading: Toni Foster MD [employer] Operator: Nan Esquivel RN RD CC: Franck Osorio MD Transthoracic Echocardiogram Indication: Dyspnea, AVR BP: 148/95 HR: 85 Rhythm: A-Fib Findings History: CAD, DE, porcine AVR, possible MV repair/replacement, DVT, PE, ESRD, COPD, A. fib, HTN, HLD, smoker Technical Comments: The study quality is fair. The study is technically limited due to patient body habitus. The study is technically limited due to the patient's history of COPD. The study is technically limited due to the patient's smoking history. Completed at 1605. Left Ventricle: The left ventricular chamber size is normal. Severe concentric left ventricular hypertrophy is observed. Global left ventricular wall motion and contractility are within normal limits. There is normal left ventricular systolic function. The estimated ejection fraction is 55-60%. The assessment of diastolic function is non-diagnostic. Left Atrium: The left atrium is severely dilated. Right Ventricle: The right ventricular cavity size is normal. The right ventricular global systolic function is mildly reduced. Right Atrium: The right atrial cavity size is severely dilated. Aortic Valve: There is a trace of aortic regurgitation. The mean gradient of the aortic valve is 27.7 mmHg. The peak instantaneous gradient of the aortic valve is 44.3 mmHg. The aortic valve area, by peak velocities, is calculated at 1.1 cm2. The aortic valve area, by VTI's, is calculated at 1 cm2. The dimensionless index is 0.33-0.35. A porcine bio-prosthetic aortic valve is present. h/o #23 Magna ease pericardial valve. There are mildly increased mean gradients and peak velocities across the AV. The raises the possibility of mild prothetic valve stenosis vs High Output state (in the setting of an AV fistula and anemia) vs prosthetic valve mismatch due the a relatively small prosthesis for her large BSA. Mitral Valve: There is mitral annular calcification. Mitral valve posterior leaflet calcification is visualized. Mitral valve leaflet mobility is mildly restricted. There is moderate mitral regurgitation. The mean gradient across the mitral valve is 4.3 mmHg. The peak gradient across the mitral valve is 13 mmHg. The pressure half time of the mitral valve is 78 msec. The mitral valve area, by pressure half time, is calculated at 2.8 cm2. Tricuspid Valve: The tricuspid valve leaflets are normal. There is moderate to severe tricuspid regurgitation. There is evidence of moderate pulmonary hypertension. Pulmonic Valve: The pulmonic valve structure is not well visualized. There is mild to moderate pulmonic regurgitation. There is no pulmonic stenosis. Pericardium: A trivial pericardial effusion is visualized. A pericardial fat pad is visualized. Aorta: There is no dilatation of the ascending aorta. There is no dilatation of the aortic arch. There is mild dilatation of the aortic root. Pulmonary Artery: The main pulmonary artery is not well visualized. Venous: The inferior vena cava is dilated. There is less than 50% respiratory change in the inferior vena cava dimension. Conclusions The study is technically limited due to patient body habitus. Severe concentric left ventricular hypertrophy is observed. The estimated ejection fraction is 55-60%. The assessment of diastolic function is non-diagnostic. The left atrium is severely dilated. The right ventricular global systolic function is mildly reduced. The right atrial cavity size is severely dilated. A porcine bio-prosthetic aortic valve is present. Mildly increased mean gradients and peak velocities. The raises the possibility of mild prothetic valve stenosis vs High Output state (in the setting of an AV fistula and anemia) vs prosthetic valve mismatch due the a relatively small prosthesis for her large BSA. The mean gradient of the aortic valve is 27.7 mmHg. The aortic valve area, by peak velocities, is calculated at 1.1 cm2. Mitral valve leaflet mobility is mildly restricted. There is moderate mitral regurgitation. There is moderate to severe tricuspid regurgitation. There is evidence of moderate pulmonary hypertension. Similar to 08/2016 except that MR has increase from mild then to moderate now; TR has increased from mild then to mod/severe now. Discussed with Dr. Burns Measurements Name Value Normal Range RVDdMajor (2D) 3.2 cm (2.2 - 4.4) RAd ISD 4CH 8.4 cm (3.4 - 4.9) RA (A4C)W 5.9 cm (2.9 - 4.6) IVSd (2D) 2.1 cm (0.6 - 1) LVPWd (2D) 2.1 cm (0.6 - 1) LVIDd (2D) 4.4 cm (3.6 - 5.4) LVIDs (2D) 2.9 cm - LV FS (2D) 33 % (25 - 45) Ao root diameter (2D) 3.6 cm (2.1 - 3.5) Ascending Ao 3.4 cm (2.1 - 3.4) Aortic arch 2.5 cm (1.8 - 3.4) LA dimension (AP) 2D 5.1 cm (2.3 - 3.8) LAd ISD 4CH 8.5 cm (2.9 - 5.3) LA ISD 4CH W 6.5 cm (2.5 - 4.5) Name Value Normal Range LA ESV SP 4CH (A/L) 256 ml - LA ESV SP 2CH (A/L) 357 ml - LA ESV BP (A/L) 309 ml - LA ESV BP (A/L) index 152 ml/m2 - LA ESV SP 4CH (MOD) 243 ml - LA ESV SP 2CH (MOD) 351 ml - LV mass (2D) 475.22 g - LV mass (2D) index 234.1 g/m2 - Name Value Normal Range MV E-wave Vmax 1.6 m/sec - MV deceleration time 172 msec - LV septal e' Vmax 0.09 m/sec - LV lateral e' Vmax 0.11 m/sec - LV E:e' septal ratio 17.8 ratio - LV E:e' lateral ratio 14.5 ratio - Name Value Normal Range AV Vmax 3.3 m/sec - AV VTI 69.2 cm - AV peak gradient 44.3 mmHg - AV mean gradient 27.7 mmHg - LVOT diameter 2 cm - LVOT Vmax 1.2 m/sec - LVOT VTI 23 cm - LVOT peak gradient 5.5 mmHg - LVOT mean gradient 3.3 mmHg - DOI (VTI) 0.33 ratio - DOI (Vmax) 0.35 ratio - GONZALEZ (continuity Vmax) 1.1 cm2 - GONZALEZ (continuity VTI) 1 cm2 - DEBBIE Vmax 1.2 m/sec - Name Value Normal Range MV Vmax 1.8 m/sec - MV VTI 38 cm - MV peak gradient 13 mmHg - MV mean gradient 4.3 mmHg - MV PHT 78 msec - MVA (PHT) 2.8 cm2 - MVA (continuity VTI) 1.9 cm2 - Name Value Normal Range TR Vmax 2.6 m/sec - TR peak gradient 27 mmHg - RAP 15 mmHg - RVSP 42 mmHg - IVC diameter 2.6 cm - Name Value Normal Range PV Vmax 1.1 m/sec -
--- NOTE | 2016-11-07 17:27 | TEE ---
Patient: CLARISA CANTU [facility] Rec#: [id number] : 1970 Date: 11/07/2016 Age: 46y Height: 175 cm / 68.9 in Weight: 87.7 kg / 193.3 lbs Sex: F BSA: 2 Room#: [facility] Admit Date#: 11/05/2016 Type: Inpatient Referring: Diogo Burns MD Performing: Toni Foster MD Reading: Toni Foster MD [employer] Labourer: Nan Esquivel RN RDCS Nurse: Derrek Mason RN CC: Franck Osorio MD Transesophageal Echocardiogram Indication: Dyspnea, AVR BP: 142/104 HR: 88 Rhythm: A-Fib Findings History: CAD, PA, endocarditis, porcine AVR, possible MV repair/replacement, DVT, PE, ESRD, COPD, A.fib, HTN, HLD, smoker Technical Comments: The study quality is good. Left Ventricle: The left ventricular chamber size is decreased. Global left ventricular wall motion and contractility are within normal limits. There is normal left ventricular systolic function. The estimated ejection fraction is 55-60%. Left Atrium: The left atrium is moderate to severely dilated. No thrombus is visualized within the left atrium. There is no thrombus visualized in the left atrial appendage. Right Ventricle: The right ventricular cavity size is normal. The right ventricular global systolic function is mildly reduced. Right Atrium: The right atrium is moderately dilated. A prominent eustachian valve is noted in the right atrium. A patent foramen ovale is not demonstrated by color Doppler. A bubble study has been performed on previous exams and was not repeated today. Aortic Valve: A porcine bio-prosthetic aortic valve is present. There is adequate leaflet excursion. There is a paravalvular leak of the bio-prosthetic aortic valve. There is a mild paravalvular leak and trace valvular leak. Mitral Valve: There is moderate to severe mitral regurgitation. There are multilple jets. There is no evidence of pulmonary vein flow reversal. Tricuspid Valve: The tricuspid valve leaflets are normal. There is moderate tricuspid regurgitation. Pulmonic Valve: The pulmonic valve structure is not well visualized. There is no evidence of pulmonic regurgitation. Pericardium: There is no significant pericardial effusion. Aorta: There is no dilatation of the ascending aorta.There is moderate plaque seen in the arch and descending aorta. Pulmonary Artery: The main pulmonary artery appears normal. Venous: The bicaval view was obtained and appears normal. The pulmonary veins appear normal. 2 of 4 veins are visualized and interrogated with Doppler. TAWANA Procedures: All standard views were attempted within the limitations of patient tolerance and safety. History and physical as well as labs were reviewed. The patient was in a fasting state. Risks and benefits of the procedure, including alternatives, were discussed and written informed consent was obtained. The patient and/or their health care outreach representative expressed understanding of the procedure, risks and benefits. Baseline and continuous monitoring of blood pressure, heart rate, pulse oximetry and heart rhythm was performed throughout the procedure. The appropriate time-out procedure was performed as per [facility] protocol. The patient was placed in the left lateral decubitus position. Sedation administered by the anesthesiologist in the operating room. The patient was intubated and anesthesia was provided by Dr. Lorne Atkins. See the OR record for details of the medications given. The multiplane transesophageal echocardiogram probe was inserted through the posterior oropharynx and advanced into the esophagus without difficulty. Multiple 2D images were obtained of the heart and its related structures. Color flow Doppler was used for evaluation. Spectral Doppler was also used. The atrial septum was interrogated with color flow Doppler. At the conclusion of the procedure the probe was removed with continuous suction without complications. The patient tolerated the procedure with no apparent complications. Conclusions Global left ventricular wall motion and contractility are within normal limits. The estimated ejection fraction is 55-60%. The left atrium is moderate to severely dilated. The right ventricular global systolic function is mildly reduced. A porcine bio-prosthetic aortic valve is present. There is adequate leaflet excursion. There is a paravalvular leak of the bio-prosthetic aortic valve. There is a mild paravalvular leak and trace valvular leak. There is moderate to severe mitral regurgitation. There are multilple jets. There is moderate tricuspid regurgitation. There is no dilatation of the ascending aorta.There is moderate plaque seen in the arch and descending aorta. Reviewed with Dr. Burns. Measurements Name Value Normal Range Ascending Ao 3.4 cm (2.1 - 3.4) Name Value Normal Range MV E-wave Vmax 0.97 m/sec - MV deceleration time 135 msec -
--- NOTE | 2016-11-07 18:37 | PN ---
Subjective Date of Service: 11/07/16 Interval History: Feels breathing is no better. SOB with minimal activity. No cough. No chest pain. Nausea yesterday, none today. Tried nitro SL yesterday with no effect. Objective Active Medications: Acetaminophen (Tylenol Tab*) 650 mg PO Q6H PRN PRN Reason: FEVER/PAIN Last Admin: 11/05/16 03:09 Dose: 650 mg Albuterol (Ventolin 2.5 Mg/3 Ml Neb.Tonya*) 2.5 mg INH Q2H PRN PRN Reason: SOB/WHEEZING Albuterol (Ventolin 2.5 Mg/3 Ml Neb.Tonya*) 2.5 mg INH Q4H PRN PRN Reason: SOB/WHEEZING Amlodipine Besylate (Norvasc Tab*) 5 mg PO DAILY [facility] Last Admin: 11/07/16 08:53 Dose: 5 mg Apixaban (Eliquis*) 5 mg PO BID [facility] Last Admin: 11/07/16 08:53 Dose: 5 mg Aspirin (Aspirin Low Dose Tab*) 81 mg PO DAILY [facility] Last Admin: 11/07/16 08:53 Dose: 81 mg Atorvastatin Calcium (Lipitor*) 80 mg PO DAILY [facility] Last Admin: 11/07/16 08:54 Dose: 80 mg Azithromycin (Zithromax Tab*) 500 mg PO DAILY [facility] Last Admin: 11/07/16 08:54 Dose: 500 mg Cinacalcet (Sensipar Tab*) 90 mg PO DAILY [facility] Last Admin: 11/07/16 08:55 Dose: Not Given Diltiazem HCl (Cardizem Cd Cap*) 240 mg PO DAILY [facility] Last Admin: 11/07/16 08:53 Dose: 240 mg Docusate Sodium (Colace Cap*) 200 mg PO BID [facility] Last Admin: 11/07/16 08:55 Dose: Not Given Gabapentin (Neurontin Cap(*)) 100 mg PO TID [facility] Last Admin: 11/07/16 15:55 Dose: 100 mg Guaifenesin (Mucinex*) 1,200 mg PO BID [facility] Last Admin: 11/07/16 08:53 Dose: 1,200 mg Hydralazine HCl (Apresoline Iv*) 10 mg IV Q4H PRN PRN Reason: Systolic >170 Last Admin: 11/05/16 23:53 Dose: 10 mg Hydromorphone HCl (Dilaudid Iv*) 0.5 mg IV Q2H PRN PRN Reason: PAIN Last Admin: 11/07/16 15:56 Dose: 0.5 mg Sodium Chloride (Ns 0.45% 1000 Ml Bag*) 1,000 mls @ 0 mls/hr IV KVO HGASSAN PRN Reason: KVO Labetalol HCl (Trandate Tab*) 200 mg PO BID [facility] Last Admin: 11/07/16 08:53 Dose: 200 mg Lorazepam (Ativan Inj*) 1 mg IV Q6H PRN PRN Reason: ANXIETY Last Admin: 11/07/16 15:55 Dose: 1 mg Melatonin (Melatonin (Nf)) 3 mg PO BEDTIME PRN; Protocol PRN Reason: Sleep Methylprednisolone Sodium Succinate (Solu-Medrol 40 Mg) 40 mg IV Q8H [facility] Last Admin: 11/07/16 15:54 Dose: 40 mg Metoprolol Tartrate (Lopressor Tab*) 25 mg PO BID [facility] Last Admin: 11/07/16 08:54 Dose: 25 mg Mometasone Furoate/Formoterol Fumar (Dulera 200/5 Mdi*) 2 puff INH BID [facility] Last Admin: 11/07/16 08:05 Dose: 2 puff Montelukast Sodium (Singulair Tab*) 10 mg PO DAILY [facility] Last Admin: 11/07/16 08:53 Dose: 10 mg Nicotine (Nicotine Inhaler*) 10 mg INH Q2H PRN PRN Reason: CRAVING Nitroglycerin (Nitroglycerin Tab 0.4 Mg*) 0.4 mg SL Q5M PRN PRN Reason: ANGINA Last Admin: 11/06/16 17:01 Dose: 0.4 mg Omeprazole (Prilosec Cap*) 20 mg PO DAILY@0600 [facility] Last Admin: 11/07/16 05:01 Dose: 20 mg Ondansetron HCl (Zofran Inj*) 4 mg IV Q6H PRN PRN Reason: NAUSEA Last Admin: 11/05/16 13:44 Dose: 4 mg Sevelamer Carbonate (Renvela Tab*) 4,800 mg PO TID [facility] Last Admin: 11/07/16 15:58 Dose: Not Given Tiotropium [place] (Spiriva Cap.Inh*) 1 cap INH DAILY [facility] Last Admin: 11/07/16 08:05 Dose: 1 cap Vital Signs 11/06/16 11/06/16 11/06/16 19:18 19:53 19:55 Temperature 98.3 F Pulse Rate 94 Respiratory 24 20 20 Rate Blood Pressure 171/107 (mmHg) O2 Sat by Pulse 99 Oximetry 11/06/16 11/06/16 11/06/16 20:00 20:32 20:55 Temperature Pulse Rate 76 Respiratory 20 16 20 Rate Blood Pressure (mmHg) O2 Sat by Pulse 94 Oximetry 11/06/16 11/06/16 11/06/16 22:14 23:14 23:57 Temperature 98.4 F Pulse Rate 82 Respiratory 18 18 20 Rate Blood Pressure 153/93 (mmHg) O2 Sat by Pulse 99 Oximetry 11/07/16 11/07/16 11/07/16 00:42 03:09 03:42 Temperature 98.3 F Pulse Rate 91 Respiratory 16 18 16 Rate Blood Pressure 161/110 (mmHg) O2 Sat by Pulse 100 Oximetry 11/07/16 11/07/16 11/07/16 04:19 04:42 06:12 Temperature 98.5 F Pulse Rate 105 Respiratory 19 19 18 Rate Blood Pressure 166/100 (mmHg) O2 Sat by Pulse 94 Oximetry 11/07/16 11/07/16 11/07/16 07:12 08:09 08:51 Temperature Pulse Rate 107 Respiratory 16 16 18 Rate Blood Pressure (mmHg) O2 Sat by Pulse 94 Oximetry 11/07/16 11/07/16 11/07/16 08:52 09:03 09:51 Temperature Pulse Rate 107 Respiratory 18 16 18 Rate Blood Pressure (mmHg) O2 Sat by Pulse 94 Oximetry 11/07/16 11/07/16 11/07/16 12:16 12:20 12:24 Temperature 98.2 F Pulse Rate 76 90 92 Respiratory 20 17 20 Rate Blood Pressure 142/104 148/118 130/109 (mmHg) O2 Sat by Pulse 100 100 100 Oximetry 11/07/16 11/07/16 11/07/16 12:30 12:45 13:00 Temperature Pulse Rate 86 87 85 Respiratory 18 17 15 Rate Blood Pressure 148/95 131/97 148/102 (mmHg) O2 Sat by Pulse 100 98 99 Oximetry 11/07/16 11/07/16 11/07/16 13:15 15:55 15:56 Temperature Pulse Rate 80 Respiratory 13 22 22 Rate Blood Pressure 150/99 (mmHg) O2 Sat by Pulse 99 Oximetry Oxygen Devices in Use Now: Nasal Cannula Appearance: chronically ill, NAD Eyes: No Scleral Icterus, PERRLA Ears/Nose/Mouth/Throat: NL Teeth, Lips, Gums, Clear Oropharnyx Neck: NL Appearance and Movements; NL JVP, Trachea Midline Respiratory: Symmetrical Chest Expansion and Respiratory Effort, Clear to Auscultation Cardiovascular: - - IRIR Abdominal: NL Sounds; No Tenderness; No Distention, No Hepatosplenomegaly Lymphatic: No Cervical Adenopathy Extremities: No Edema Skin: No Rash or Ulcers Neurological: Alert and Oriented x 3 Result Diagrams: 11/05/16 05:22 11/05/16 05:22 Additional Lab and Data: Lab Results 11/04/16 11/04/16 11/04/16 Range/Units 20:56 20:56 20:56 WBC 8.6 (3.5-10.8) 10^3/ul RBC 2.32 L (4.0-5.4) 10^6/ul Hgb 7.6 L (12.0-16.0) g/dl Hct 23 L (35-47) % MCV 99 H (80-97) fL MCH 33 H (27-31) pg MCHC 33 (31-36) g/dl RDW 18 H (10.5-15) % Plt Count 178 (150-450) 10^3/ul MPV 9 (7.4-10.4) um3 Absolute Neuts (auto) 5.8 (1.5-7.7) 10^3/ul Absolute Lymphs (auto) 1.5 (1.0-4.8) 10^3/ul Absolute Monos (auto) 0.9 H (0-0.8) 10^3/ul Absolute Eos (auto) 0.3 (0-0.6) 10^3/ul Absolute Basos (auto) 0.1 (0-0.2) 10^3/ul Absolute Nucleated RBC Not Reportable Neutrophils % 68 (38-83) % Lymphocytes % 18 L (25-47) % Monocytes % 10 (0-13) % Eosinophils % 3 (0-6) % Basophils % 1 (0-2) % Normal RBC Morphology Not Reportable Polychromasia 1+ Macrocytosis 2+ Elliptocytes 1+ Schistocytes 1+ Hem Pathologist Commnt Pending INR (Anticoag Therapy) 1.02 (0.89-1.11) Sodium 134 (133-145) mmol/L Potassium 4.1 (3.5-5.0) mmol/L Chloride 92 L (101-111) mmol/L Carbon Dioxide 31 (22-32) mmol/L Anion Gap 11 (2-11) mmol/L BUN 50 H (6-24) mg/dL Creatinine 8.98 H (0.51-0.95) mg/dL Est GFR ( Amer) 6.1 (>60) Est GFR (Non-Af Amer) 4.7 (>60) BUN/Creatinine Ratio 5.6 L (8-20) Glucose 89 (70-100) mg/dL Lactic Acid (0.5-2.0) mmol/L Calcium 9.9 (8.6-10.3) mg/dL Total Bilirubin 0.60 (0.2-1.0) mg/dL AST 18 (13-39) U/L ALT 12 (7-52) U/L Alkaline Phosphatase 70 (34-104) U/L Troponin I 0.07 H* (<0.04) ng/mL B-Natriuretic Peptide ( - 100) pg/mL Total Protein 6.6 (6.4-8.9) g/dL Albumin 4.0 (3.2-5.2) g/dL Globulin 2.6 (2-4) g/dL Albumin/Globulin Ratio 1.5 (1-3) 11/04/16 11/04/16 Range/Units 20:56 20:56 WBC (3.5-10.8) 10^3/ul RBC (4.0-5.4) 10^6/ul Hgb (12.0-16.0) g/dl Hct (35-47) % MCV (80-97) fL MCH (27-31) pg MCHC (31-36) g/dl RDW (10.5-15) % Plt Count (150-450) 10^3/ul MPV (7.4-10.4) um3 Absolute Neuts (auto) (1.5-7.7) 10^3/ul Absolute Lymphs (auto) (1.0-4.8) 10^3/ul Absolute Monos (auto) (0-0.8) 10^3/ul Absolute Eos (auto) (0-0.6) 10^3/ul Absolute Basos (auto) (0-0.2) 10^3/ul Absolute Nucleated RBC Neutrophils % (38-83) % Lymphocytes % (25-47) % Monocytes % (0-13) % Eosinophils % (0-6) % Basophils % (0-2) % Normal RBC Morphology Polychromasia Macrocytosis Elliptocytes Schistocytes Hem Pathologist Commnt INR (Anticoag Therapy) (0.89-1.11) Sodium (133-145) mmol/L Potassium (3.5-5.0) mmol/L Chloride (101-111) mmol/L Carbon Dioxide (22-32) mmol/L Anion Gap (2-11) mmol/L BUN (6-24) mg/dL Creatinine (0.51-0.95) mg/dL Est GFR ( Amer) (>60) Est GFR (Non-Af Amer) (>60) BUN/Creatinine Ratio (8-20) Glucose (70-100) mg/dL Lactic Acid 1.1 (0.5-2.0) mmol/L Calcium (8.6-10.3) mg/dL Total Bilirubin (0.2-1.0) mg/dL AST (13-39) U/L ALT (7-52) U/L Alkaline Phosphatase (34-104) U/L Troponin I (<0.04) ng/mL B-Natriuretic Peptide 2586 H ( - 100) pg/mL Total Protein (6.4-8.9) g/dL Albumin (3.2-5.2) g/dL Globulin (2-4) g/dL Albumin/Globulin Ratio (1-3) Assess/Plan/Problems-Billing Assessment: 46 yo F h/o ESRD on HD x 10 yr, pulmonary embolism c/b alveolar hemorrhage, afib , AVR complicated by stenosis and perc balloon dilitation p/w progressively worsening SOB - Patient Problems (1) Shortness of breath Comment: 5 kg removed at dialysis 11/06 without imrpovement in SOB repeat CXR s/p dialysis showed improvement in vascular congestion TAWANA and TTE indicate functioning AV valve but worsening TR Will check stress test tomorrow to r/o ischemia. (2) Afib Comment: dilt, toprol, labetalol elimirna (3) S/P AVR (aortic valve replacement) Comment: TAWANA with functional valve (4) ESRD (end stage renal disease) on dialysis Comment: HD T/T/Sat as outpatient last infriday (5) DVT prophylaxis Comment: jonathon
[2016-11-08] MEDS: methylPREDNISolone SOD 40 MG* 1 ML VIAL IV SCH ×3 (01:32→17:45)
[2016-11-08] MEDS: HYDROmorphone* 1 MG/ML 1 ML SYR IV PRN ×6 (04:02→21:11)
[2016-11-08] MEDS: Acetaminophen TAB* 325 MG PO PRN (04:02)
[2016-11-08] MEDS: Metoprolol Tartrate TAB* 25 MG PO SCH ×2 (08:23→21:16)
[2016-11-08] MEDS: Docusate CAP* 100 MG PO SCH ×2 (08:23→21:15)
[2016-11-08] MEDS: guaiFENesin ER TAB 600 MG PO SCH ×2 (08:23→21:16)
[2016-11-08] MEDS: Labetalol TAB* 200 MG PO SCH ×2 (08:23→21:17)
[2016-11-08] MEDS: Omeprazole CAP* 20 MG PO SCH (08:23)
[2016-11-08] MEDS: Apixaban* 5 MG TAB PO SCH ×2 (08:23→21:15)
[2016-11-08] MEDS: Gabapentin CAP(*) 100 MG PO SCH ×3 (08:24→21:14)
[2016-11-08] MEDS: Tiotropium CAP.INH* CAP.INH/18 MCG INH SCH (09:02)
[2016-11-08] MEDS: Mometasone/Formoter 200/5 MDI INH SCH ×2 (09:02→20:03)
--- NOTE | 2016-11-08 13:27 | RAD ---
Edited for charges. INDICATION: Dyspnea on exertion. History of prior myocardial infarction, catheterization and cardiac valve surgery. COMPARISON: There are no prior studies available for comparison. Technique: A single day myocardial perfusion stress study was performed. Initially the resting study was performed. The patient was given an intravenous injection of 11.0 mCi of technetium 99m tetrofosmin and and the heart was imaged in multiple projections. The patient returned later in the day and under the direction of Dr. Capone, the patient was given intervenous injection of Lexiscan. Subsequently the patient was given intravenous injection of 25.1 mCi of technetium 99m tetrofosmin and the heart was imaged in multiple projections. Images were reconstructed in the axial, sagittal and coronal planes and in a 3- D format. FINDINGS: Review of the gated cardiac study demonstrates a global hypokinesis. The left ventricular ejection fraction is calculated to be 33%. Review of the tomographic images demonstrates a small to moderate size area of decreased activity in the anterior wall on the post pharmacologic stress images which appears improved on the resting images suggestive of ischemic change. No other focal abnormalities are seen. The results of this exam were discussed with the referring clinician. IMPRESSION: 1. FINDINGS SUGGESTIVE OF A SMALL TO MODERATE SIZE AREA OF ISCHEMIA IN THE ANTERIOR WALL. 2. DECREASED LEFT VENTRICULAR EJECTION FRACTION CALCULATED TO BE 33%. ASSESSMENT: High risk. Based on imaging criteria from ACC/AHA 2002 Guideline Update for the Management of Patients With Chronic Stable Angina Table 23. Noninvasive Risk Stratification. MTDD
[2016-11-08] MEDS: Sevelamer TAB* 800 MG PO SCH ×4 (14:17→21:17)
[2016-11-08] MEDS ORDERED: Regadenoson* 0.4 MG/5 ML SYRINGE ONE (15:23)
[2016-11-08] MEDS ORDERED: Epoetin Alfa* 3,000 UNITS/ML VIAL IV ONE (15:30)
[2016-11-08] MEDS ORDERED: Epoetin Alfa* 4,000 UNITS/ML VIAL IV ONE (15:30)
[2016-11-08] MEDS ORDERED: Heparin DIALYSIS ONLY(*) 1,000 UNITS/ML VIAL DIALYSIS ONE (15:30)
[2016-11-08] MEDS: Azithromycin TAB* 250 MG PO SCH (17:45)
[2016-11-08] MEDS: Cinacalcet TAB* 30 MG PO SCH (17:45)
[2016-11-08] MEDS: Atorvastatin* 80 MG TAB PO SCH (17:46)
[2016-11-08] MEDS: amLODIPine TAB* 5 MG PO SCH (17:46)
[2016-11-08] MEDS: Aspirin Low Dose CHEW TAB* 81 MG PO SCH (17:46)
[2016-11-08] MEDS: Diltiazem CD CAP* 240 MG PO SCH (17:46)
[2016-11-08] MEDS: Montelukast Sodium TAB* 10 MG PO SCH (17:47)
--- NOTE | 2016-11-08 19:04 | PN ---
Subjective Date of Service: 11/08/16 Interval History: Seen after stress test Discussed results with pt She still feels SOB at rest and much worse with any activity including sliding to side of bed. She takes several breaks in order to walk to the bathroom with her walker. She reports chest pain different from usual discomfort for 1 week that radiates up under her left breast then down her chest. It last 5 minutes and occurs 4 times/hour. Nothing makes this pain better but moving "the wrong way" can make it worse. It is not precipitated by exertion Objective Active Medications: Acetaminophen (Tylenol Tab*) 650 mg PO Q6H PRN PRN Reason: FEVER/PAIN Last Admin: 11/08/16 04:02 Dose: 650 mg Albuterol (Ventolin 2.5 Mg/3 Ml Neb.Tonya*) 2.5 mg INH Q4H PRN PRN Reason: SOB/WHEEZING Amlodipine Besylate (Norvasc Tab*) 5 mg PO DAILY [facility] Last Admin: 11/08/16 17:46 Dose: 5 mg Apixaban (Eliquis*) 5 mg PO BID [facility] Last Admin: 11/08/16 08:23 Dose: 5 mg Aspirin (Aspirin Low Dose Tab*) 81 mg PO DAILY [facility] Last Admin: 11/08/16 17:46 Dose: 81 mg Atorvastatin Calcium (Lipitor*) 80 mg PO DAILY [facility] Last Admin: 11/08/16 17:46 Dose: 80 mg Cinacalcet (Sensipar Tab*) 90 mg PO DAILY [facility] Last Admin: 11/08/16 17:45 Dose: 90 mg Diltiazem HCl (Cardizem Cd Cap*) 240 mg PO DAILY [facility] Last Admin: 11/08/16 17:46 Dose: 240 mg Docusate Sodium (Colace Cap*) 200 mg PO BID [facility] Last Admin: 11/08/16 08:23 Dose: 200 mg Gabapentin (Neurontin Cap(*)) 100 mg PO TID [facility] Last Admin: 11/08/16 13:33 Dose: 100 mg Guaifenesin (Mucinex*) 1,200 mg PO BID [facility] Last Admin: 11/08/16 08:23 Dose: 1,200 mg Hydralazine HCl (Apresoline Iv*) 10 mg IV Q4H PRN PRN Reason: Systolic >170 Last Admin: 11/05/16 23:53 Dose: 10 mg Hydromorphone HCl (Dilaudid Iv*) 0.5 mg IV Q2H PRN PRN Reason: PAIN Last Admin: 11/08/16 17:42 Dose: 0.5 mg Sodium Chloride (Ns 0.45% 1000 Ml Bag*) 1,000 mls @ 0 mls/hr IV KVO GHASSAN PRN Reason: KVO Isosorbide Mononitrate (Imdur Er Tab*) 30 mg PO 0700,1400 [facility] Labetalol HCl (Trandate Tab*) 200 mg PO BID [facility] Last Admin: 11/08/16 08:23 Dose: 200 mg Lorazepam (Ativan Inj*) 1 mg IV Q6H PRN PRN Reason: ANXIETY Last Admin: 11/07/16 22:23 Dose: 1 mg Melatonin (Melatonin (Nf)) 3 mg PO BEDTIME PRN; Protocol PRN Reason: Sleep Metoprolol Tartrate (Lopressor Tab*) 25 mg PO BID [facility] Last Admin: 11/08/16 08:23 Dose: 25 mg Mometasone Furoate/Formoterol Fumar (Dulera 200/5 Mdi*) 2 puff INH BID [facility] Last Admin: 11/08/16 09:02 Dose: 2 puff Montelukast Sodium (Singulair Tab*) 10 mg PO DAILY [facility] Last Admin: 11/08/16 17:47 Dose: 10 mg Nicotine (Nicotine Inhaler*) 10 mg INH Q2H PRN PRN Reason: CRAVING Nitroglycerin (Nitroglycerin Tab 0.4 Mg*) 0.4 mg SL Q5M PRN PRN Reason: ANGINA Last Admin: 11/06/16 17:01 Dose: 0.4 mg Omeprazole (Prilosec Cap*) 20 mg PO DAILY@0600 [facility] Last Admin: 11/08/16 08:23 Dose: 20 mg Ondansetron HCl (Zofran Inj*) 4 mg IV Q6H PRN PRN Reason: NAUSEA Last Admin: 11/05/16 13:44 Dose: 4 mg Sevelamer Carbonate (Renvela Tab*) 4,800 mg PO TID [facility] Last Admin: 11/08/16 17:44 Dose: 4,800 mg Tiotropium [place] (Spiriva Cap.Inh*) 1 cap INH DAILY [facility] Last Admin: 11/08/16 09:02 Dose: 1 cap Vital Signs 06/15/17 06/15/17 06/15/17 19:29 20:00 20:16 Temperature 97.9 F Pulse Rate 50 Respiratory 22 18 16 Rate Blood Pressure 152/101 (mmHg) O2 Sat by Pulse 95 Oximetry 11/07/16 11/07/16 11/07/16 20:24 20:35 21:16 Temperature Pulse Rate 109 Respiratory 16 18 16 Rate Blood Pressure (mmHg) O2 Sat by Pulse 98 Oximetry 11/07/16 11/07/16 11/07/16 22:23 22:24 23:23 Temperature Pulse Rate Respiratory 16 16 16 Rate Blood Pressure (mmHg) O2 Sat by Pulse Oximetry 11/07/16 11/08/16 11/08/16 23:49 03:29 04:02 Temperature 97.6 F Pulse Rate 106 Respiratory 16 16 Rate Blood Pressure 151/84 (mmHg) O2 Sat by Pulse 100 98 Oximetry 11/08/16 11/08/16 11/08/16 04:19 05:02 06:00 Temperature 97.2 F 97.6 F Pulse Rate 100 104 Respiratory 16 16 18 Rate Blood Pressure 154/97 157/87 (mmHg) O2 Sat by Pulse 99 98 Oximetry 11/08/16 11/08/16 11/08/16 06:16 07:16 07:56 Temperature 98.2 F Pulse Rate 82 Respiratory 18 16 20 Rate Blood Pressure 159/100 (mmHg) O2 Sat by Pulse 100 Oximetry 11/08/16 11/08/16 11/08/16 08:00 08:22 08:24 Temperature Pulse Rate Respiratory 16 16 16 Rate Blood Pressure (mmHg) O2 Sat by Pulse 100 Oximetry 11/08/16 11/08/16 11/08/16 09:04 09:22 13:33 Temperature Pulse Rate 87 Respiratory 18 16 16 Rate Blood Pressure (mmHg) O2 Sat by Pulse 98 Oximetry 11/08/16 11/08/16 11/08/16 15:35 17:09 17:42 Temperature Pulse Rate Respiratory 16 Rate Blood Pressure (mmHg) O2 Sat by Pulse 98 96 Oximetry 11/08/16 11/08/16 17:45 18:42 Temperature 98.7 F Pulse Rate 108 Respiratory 19 16 Rate Blood Pressure 152/101 (mmHg) O2 Sat by Pulse 100 Oximetry Oxygen Devices in Use Now: Nasal Cannula Appearance: Sitting up in bed, eating dinner, NAD Eyes: No Scleral Icterus, PERRLA Ears/Nose/Mouth/Throat: Clear Oropharnyx, Mucous Membranes Moist Neck: NL Appearance and Movements; NL JVP, Trachea Midline Respiratory: Symmetrical Chest Expansion and Respiratory Effort, Clear to Auscultation Cardiovascular: - - IRIR, loud 3+/6 mid peaking MYRNA Abdominal: NL Sounds; No Tenderness; No Distention, No Hepatosplenomegaly Lymphatic: No Cervical Adenopathy Skin: No Rash or Ulcers Neurological: Alert and Oriented x 3 Result Diagrams: 11/05/16 05:22 11/05/16 05:22 Additional Lab and Data: Lab Results 11/04/16 11/04/16 11/04/16 Range/Units 20:56 20:56 20:56 WBC 8.6 (3.5-10.8) 10^3/ul RBC 2.32 L (4.0-5.4) 10^6/ul Hgb 7.6 L (12.0-16.0) g/dl Hct 23 L (35-47) % MCV 99 H (80-97) fL MCH 33 H (27-31) pg MCHC 33 (31-36) g/dl RDW 18 H (10.5-15) % Plt Count 178 (150-450) 10^3/ul MPV 9 (7.4-10.4) um3 Absolute Neuts (auto) 5.8 (1.5-7.7) 10^3/ul Absolute Lymphs (auto) 1.5 (1.0-4.8) 10^3/ul Absolute Monos (auto) 0.9 H (0-0.8) 10^3/ul Absolute Eos (auto) 0.3 (0-0.6) 10^3/ul Absolute Basos (auto) 0.1 (0-0.2) 10^3/ul Absolute Nucleated RBC Not Reportable Neutrophils % 68 (38-83) % Lymphocytes % 18 L (25-47) % Monocytes % 10 (0-13) % Eosinophils % 3 (0-6) % Basophils % 1 (0-2) % Normal RBC Morphology Not Reportable Polychromasia 1+ Macrocytosis 2+ Elliptocytes 1+ Schistocytes 1+ Hem Pathologist Commnt Pending INR (Anticoag Therapy) 1.02 (0.89-1.11) Sodium 134 (133-145) mmol/L Potassium 4.1 (3.5-5.0) mmol/L Chloride 92 L (101-111) mmol/L Carbon Dioxide 31 (22-32) mmol/L Anion Gap 11 (2-11) mmol/L BUN 50 H (6-24) mg/dL Creatinine 8.98 H (0.51-0.95) mg/dL Est GFR ( Amer) 6.1 (>60) Est GFR (Non-Af Amer) 4.7 (>60) BUN/Creatinine Ratio 5.6 L (8-20) Glucose 89 (70-100) mg/dL Lactic Acid (0.5-2.0) mmol/L Calcium 9.9 (8.6-10.3) mg/dL Total Bilirubin 0.60 (0.2-1.0) mg/dL AST 18 (13-39) U/L ALT 12 (7-52) U/L Alkaline Phosphatase 70 (34-104) U/L Troponin I 0.07 H* (<0.04) ng/mL B-Natriuretic Peptide ( - 100) pg/mL Total Protein 6.6 (6.4-8.9) g/dL Albumin 4.0 (3.2-5.2) g/dL Globulin 2.6 (2-4) g/dL Albumin/Globulin Ratio 1.5 (1-3) 11/04/16 11/04/16 Range/Units 20:56 20:56 WBC (3.5-10.8) 10^3/ul RBC (4.0-5.4) 10^6/ul Hgb (12.0-16.0) g/dl Hct (35-47) % MCV (80-97) fL MCH (27-31) pg MCHC (31-36) g/dl RDW (10.5-15) % Plt Count (150-450) 10^3/ul MPV (7.4-10.4) um3 Absolute Neuts (auto) (1.5-7.7) 10^3/ul Absolute Lymphs (auto) (1.0-4.8) 10^3/ul Absolute Monos (auto) (0-0.8) 10^3/ul Absolute Eos (auto) (0-0.6) 10^3/ul Absolute Basos (auto) (0-0.2) 10^3/ul Absolute Nucleated RBC Neutrophils % (38-83) % Lymphocytes % (25-47) % Monocytes % (0-13) % Eosinophils % (0-6) % Basophils % (0-2) % Normal RBC Morphology Polychromasia Macrocytosis Elliptocytes Schistocytes Hem Pathologist Commnt INR (Anticoag Therapy) (0.89-1.11) Sodium (133-145) mmol/L Potassium (3.5-5.0) mmol/L Chloride (101-111) mmol/L Carbon Dioxide (22-32) mmol/L Anion Gap (2-11) mmol/L BUN (6-24) mg/dL Creatinine (0.51-0.95) mg/dL Est GFR ( Amer) (>60) Est GFR (Non-Af Amer) (>60) BUN/Creatinine Ratio (8-20) Glucose (70-100) mg/dL Lactic Acid 1.1 (0.5-2.0) mmol/L Calcium (8.6-10.3) mg/dL Total Bilirubin (0.2-1.0) mg/dL AST (13-39) U/L ALT (7-52) U/L Alkaline Phosphatase (34-104) U/L Troponin I (<0.04) ng/mL B-Natriuretic Peptide 2586 H ( - 100) pg/mL Total Protein (6.4-8.9) g/dL Albumin (3.2-5.2) g/dL Globulin (2-4) g/dL Albumin/Globulin Ratio (1-3) Assess/Plan/Problems-Billing Assessment: 46 yo F h/o ESRD on HD x 10 yr, pulmonary embolism c/b alveolar hemorrhage, afib , AVR complicated by stenosis and TAVR 05/2016 p/w progressively worsening SOB - Patient Problems (1) Shortness of breath Comment: -5 kg removed at dialysis 11/06 without imrpovement in SOB Dialysis 11/08 without improvement. Pt now at dry weight repeat CXR s/p dialysis showed improvement in vascular congestion -Stress test with reversible ischemia but LHC 05/2016 at [place] [facility] (under outside records in scanned records here) with no appreciable disease. Unclear if this represents a false positive result or new disease. Cardiology to consult and imdur added to regimen. TAWANA and TTE indicate functioning AV valve but worsening TR (2) Afib Comment: dilt, toprol, labetalol eliquis (3) S/P AVR (aortic valve replacement) Comment: TAWANA with functional valve TAVR in may (4) ESRD (end stage renal disease) on dialysis Comment: HD T/T/Sat as outpatient last friday (5) DVT prophylaxis Comment: elimannis
[2016-11-09] MEDS: HYDROmorphone* 1 MG/ML 1 ML SYR IV PRN ×7 (00:35→20:09)
[2016-11-09] MEDS: LORazepam INJ* 2 MG/ML 1 ML VIAL IV PRN ×3 (00:38→16:59)
[2016-11-09] MEDS: Acetaminophen TAB* 325 MG PO PRN (03:37)
[2016-11-09] MEDS: Omeprazole CAP* 20 MG PO SCH (06:12)
[2016-11-09] MEDS: Tiotropium CAP.INH* CAP.INH/18 MCG INH SCH (08:01)
[2016-11-09] MEDS: Mometasone/Formoter 200/5 MDI INH SCH ×2 (08:02→20:04)
[2016-11-09] MEDS: Docusate CAP* 100 MG PO SCH ×2 (08:44→20:08)
[2016-11-09] MEDS: Metoprolol Tartrate TAB* 25 MG PO SCH (08:44)
[2016-11-09] MEDS: Cinacalcet TAB* 30 MG PO SCH (08:44)
[2016-11-09] MEDS: Diltiazem CD CAP* 240 MG PO SCH (08:44)
[2016-11-09] MEDS: amLODIPine TAB* 5 MG PO SCH (08:44)
[2016-11-09] MEDS: Labetalol TAB* 200 MG PO SCH ×2 (08:44→20:02)
[2016-11-09] MEDS: Gabapentin CAP(*) 100 MG PO SCH ×3 (08:44→20:01)
[2016-11-09] MEDS: Atorvastatin* 80 MG TAB PO SCH (08:44)
[2016-11-09] MEDS: guaiFENesin ER TAB 600 MG PO SCH ×2 (08:44→20:02)
[2016-11-09] MEDS: Apixaban* 5 MG TAB PO SCH ×2 (08:45→20:00)
[2016-11-09] MEDS: Sevelamer TAB* 800 MG PO SCH ×3 (08:45→17:39)
[2016-11-09] MEDS: Montelukast Sodium TAB* 10 MG PO SCH (08:45)
[2016-11-09] MEDS: Aspirin Low Dose CHEW TAB* 81 MG PO SCH (08:45)
[2016-11-09] MEDS ORDERED: Metoprolol Tartrate TAB* 50 mg PO ONE ×2 (09:28→11:41)
[2016-11-09] MEDS ORDERED: Diltiazem CD CAP* 120 MG PO ONE (14:00)
--- NOTE | 2016-11-09 15:22 | CONS ---
CC: Toni Foster MD; Dr. Diogo Burns; Dr. Horvath. CARDIOLOGY CONSULTATION: DATE OF CONSULT: 11/09/16 CONSULTING PHYSICIAN: Dr. Diogo Burns. REASON FOR EVALUATION: Shortness of breath. HISTORY OF PRESENT ILLNESS: This is a very pleasant, complex 46-year-old woman with a longstanding history of difficult to treat hypertension and issues with noncompliance in the past as well as renal failure; hypertensive heart disease with marked LVH; aortic valve disease, status post aortic valve replacement; status post atrial valve repair, as well as restenosis of aortic valve status post TAVR in May. She also has an AV fistula in her left leg for dialysis and chronic anemia. In the last few months, she has noted a decrease in exercise capacity; at best she is able to walk about 25 feet or so, was able to do 6 to 12 months ago. However, over the last few months, she has had worsening shortness of breath with exertion. She had admissions at the end of last year for heart failure and actually was transferred to [place] where she underwent placement of a #23 DRAKE TAVR aortic valve for severe aortic stenosis by Dr. Buck at [facility]. She reports that after she did not feel much of an improvement. She also developed hyperkalemia in June with bradycardia and she also said she had episode of bleeding to her lungs back in the fall of last year. She continues to smoke and has a history of COPD, asthma and her blood pressures remained poorly controlled. She also has a AFib and has poor control of her heart rate with minimal exertion. She was admitted for continued shortness of breath and chest pain on November 04 and she had some sharp stabbing left lateral chest pain which is worse with cough and deep inspiration. She said that she is only able to walk about 5 feet if so before getting shortness of breath and she uses a walker. Her workup so far included treatment with Lasix for a possible volume overload and COPD exacerbation. She also was noted to have mild bump in her troponin at 0.07, 0.08, 0.07. Her BMP was elevated at 2586. She also underwent evaluation with a transesophageal echo to evaluate for recurrent stenosis. Her transesophageal echocardiogram from November 07 revealed global wall motion within normal limits. EF of 55% to 60%, left atrium is moderately to severely dilated. RV mildly reduced. Porcine bioprosthetic valve, adequate leaflet excursion by 2D, paravalvular leak at the bioprosthetic valve. There is mild paravalvular leak and a trace valvular leak. There was moderate to severe MR, multiple jets of moderate TR, moderate plaque seen in the arch of the descending aorta. She also underwent evaluation with a nuclear scan because of her progressive shortness of breath. She has small to moderate area of ischemia, anterior wall, decreased LVEF at 33%, was felt to be a high risk. However of note, review of her catheterization from May revealed that she had no significant coronary disease at that time. Reason, possibility of false positive versus interval development of ischemia. PAST MEDICAL HISTORY: 1. Hypertension. 2. COPD/asthma, tobacco use down to 2 cigarettes a day. 3. Obesity. 4. Renal failure. 5. Marked LVH felt to be due to poorly controlled hypertension. 6. Pulmonary hemorrhage on excessive anticoagulation, 2015. 7. Atrial fibrillation. 8. CHF. 9. Anemia. 10. history of DVT and PE with a lung scan in April which was intermediate probably. 11. gallbladder ultrasound January 2015 which revealed gallbladder wall thickening. No cholelithiasis, but gallbladder wall thickening that was felt to be indeterminate for cholecystitis. 12. chest CTA in November 2013 and at that time the arterial tree was poorly visualized and no large embolus noted. Large amount of collaterals noted in the left chest wall considered subclavian vein thrombosis or sclerosis PAST SURGICAL HISTORY: 1. Coronary bypass grafting, she thinks around 2013, with aortic valve replacement, a possible mitral valve repair. 2. Hysterectomy. 3. Knee arthroscopies. 4. She had coronary bypass grafting in 2013 with her mitral valve repair and aortic valve replacement that was at [facility]. MEDICATIONS: Include, 1. Acetaminophen. 2. Albuterol. 3. Amlodipine 5 mg a day. 4. Eliquis 5 mg b.i.d. 5. Aspirin 81 mg a day. 6. Atorvastatin 80 mg a day. 7. Sensipar 90 mg a day. 8. Diltiazem 240 a day. 9. Docusate 200 mg b.i.d. 10. Mucinex 1200 mg b.i.d. 11. Neurontin 100 mg t.i.d. 12. Hydralazine 10 mg q.4 p.r.n. systolically at 140. 13. Labetalol 200 mg b.i.d. 14. Melatonin. 15. Metoprolol 50 mg q.12 just increased from 25 mg q.12. 16. Singulair. 17. Dulera. 18. Nicotine inhaler. 19. Nitroglycerin 0.4 p.r.n. 20. Zofran. 21. Renvela tab 4800 mg t.i.d. 22. Spiriva. ALLERGIES: Include IODINATED CONTRAST, LISINOPRIL difficulty breathing; PENICILLIN hives and throat swelling; CEPHALOSPORINS not specified. FAMILY HISTORY: No premature coronary disease. SOCIAL HISTORY: She smokes 2 cigarettes a day. She is single, never , has 2 daughters and a son. She has 3 brothers and one sister. REVIEW OF SYSTEMS: Includes snoring and daytime sleepiness. She has never been evaluated for sleep apnea. She also has this stabbing left-sided chest pain of unclear etiology. PHYSICAL EXAM: She is a well-developed, obese female in no apparent distress. Heart rate is 104, and irregular. Blood pressure this morning is 151/102, and her blood pressure tended to be in 150s over 95 to 110. Atraumatic, normocephalic, exophthalmos noted. Extraocular muscles intact. Sclerae anicteric. Cushingoid facies. Carotids 2+ without bruits. No JVDs. No cervical adenopathy. No thyromegaly but there was fullness of her adipose under her chin. Chest was clear. No CVAT. There was kyphosis. Abdomen: Morbidly obese, nontender. Bowel sounds positive. Femoral pulses intact on the right with a bruit on the left. She had an AV fistula with a thrill and a bruit. Distal pulses intact. No edema. Motor strength 5/5 bilaterally. Deep tendon reflexes 2/4 in the upper extremities, 1/4 in the lower extremities. Alert and oriented x3. DIAGNOSTIC STUDIES/LAB DATA: Include a sodium 132, potassium of 4.6, BUN of 54 , creatinine of 9.46, calcium of 10.1. The troponin was 0.07. BNP was 2586. In July it had been as low as 857 as high as 2786 in April. White count of 10.8, hemoglobin is 7.8, hematocrit of 24, platelet count of 180. EKG, from the revealed atrial fibrillation with nonspecific ST-T changes, poor R wave progression, possible anterior septal AZ. Her rapid ventricular response is 124, similar to 10/13/16 except that her rate was slower and ST changes were less pronounced. In August, her EKG revealed heart rate at [address]-T changes. IMPRESSION: My impression is that Mrs. Joseph has multiple medical problems, cardiovascular problems, and dyspnea on exertion which could be multifactorial. Contributing factors include a high output state due to her fistula and anemia, some degree of prosthetic valve mismatch as well as, moderate to severe mitral regurgitation. In addition, the poorly controlled hypertension probably exacerbates her mitral regurgitation. Her atrial fibrillation with poor rate control also exacerbates her hemodynamics. I suspect that she has very high LV filling pressures on the basis of her mitral regurgitation, aortic stenosis, anemia, hypertension, and high output state. Her recent nuclear raised the possibility of coronary insufficiency but may be a false positive. I did discuss the case with her and with Dr. Burns. Given her multiple comorbidities she will be high risk in intervention including repeat catheterization and mitral valve repair. For the time being, I recommend the followin. I suggested that we try to aggressively control her heart and blood pressure to see if we can improve her symptoms. With better control of her heart rate and blood pressure her hemodynamics may improve. Would consider advancing her Cardizem and her beta clara control heart rate and blood pressures. If that fails to control however we may consider adding digoxin cautiously in light of her renal failure, and we would have to do this in coordination with Dr. Osorio. 2. We would consider adding Aldactone and if permissible with Dr. Osorio to try better control her heart failure diastolic dysfunction. 3. I agree with adding nitrates. 4. If she fails to respond, we could reconsider the issue of cardiac catheterization for mitral regurgitation and possible LAD ischemia. She is to follow with Dr. Buck and we have to do this in consultation with him. 5. Given her daytime sleepiness and possibly sleep apnea we would suggest screening for sleep apnea with overnight pulse oximetry and perhaps a sleep study as an outpatient. 6 She also had somewhat typical chest pain of unclear etiology. Consider musculoskeletal or pulmonary issue. [id number]/[facility] #: [id number] MTDD
--- NOTE | 2016-11-09 15:22 | CONS ---
CONSULTATION REPORT:* ADDENDUM: MEDICATIONS: Include, 1. Acetaminophen. 2. Albuterol. 3. Amlodipine 5 mg a day. 4. Eliquis 5 mg b.i.d. 5. Aspirin 81 mg a day. 6. Atorvastatin 80 mg a day. 7. Sensipar 90 mg a day. 8. Diltiazem 240 a day. 9. Docusate 200 mg b.i.d. 10. Mucinex 1200 mg b.i.d. 11. Neurontin 100 mg t.i.d. 12. Hydralazine 10 mg q.4 p.r.n. systolically at 140. 13. Labetalol 200 mg b.i.d. 14. Melatonin. 15. Metoprolol 50 mg q.12 just increased from 25 mg q.12. 16. Singulair. 17. Dulera. 18. Nicotine inhaler. 19. Nitroglycerin 0.4 p.r.n. 20. Zofran. 21. Renvela tab 4800 mg t.i.d. 22. Spiriva. CONCLUSION: She also had somewhat typical chest pain of unclear etiology. Consider musculoskeletal or pulmonary issue. [id number]/[facility] #: [id number] [facility]
--- NOTE | 2016-11-09 17:25 | PN ---
Subjective Date of Service: 11/09/16 Interval History: Feels breathing is minimally better. Gets very SOB walking to bathroom but not so bad at rest Feels distraught over her overall decline Objective Active Medications: Acetaminophen (Tylenol Tab*) 650 mg PO Q6H PRN PRN Reason: FEVER/PAIN Last Admin: 11/09/16 03:37 Dose: 650 mg Albuterol (Ventolin 2.5 Mg/3 Ml Neb.Tonya*) 2.5 mg INH Q4H PRN PRN Reason: SOB/WHEEZING Amlodipine Besylate (Norvasc Tab*) 5 mg PO DAILY [facility] Last Admin: 11/09/16 08:44 Dose: 5 mg Apixaban (Eliquis*) 5 mg PO BID [facility] Last Admin: 11/09/16 08:45 Dose: 5 mg Aspirin (Aspirin Low Dose Tab*) 81 mg PO DAILY [facility] Last Admin: 11/09/16 08:45 Dose: 81 mg Atorvastatin Calcium (Lipitor*) 80 mg PO DAILY [facility] Last Admin: 11/09/16 08:44 Dose: 80 mg Cinacalcet (Sensipar Tab*) 90 mg PO DAILY [facility] Last Admin: 11/09/16 08:44 Dose: 90 mg Diltiazem HCl (Cardizem Cd Cap*) 240 mg PO DAILY [facility] Last Admin: 11/09/16 08:44 Dose: 240 mg Docusate Sodium (Colace Cap*) 200 mg PO BID [facility] Last Admin: 11/09/16 08:44 Dose: 200 mg Gabapentin (Neurontin Cap(*)) 100 mg PO TID [facility] Last Admin: 11/09/16 12:34 Dose: 100 mg Guaifenesin (Mucinex*) 1,200 mg PO BID [facility] Last Admin: 11/09/16 08:44 Dose: 1,200 mg Hydralazine HCl (Apresoline Iv*) 10 mg IV Q4H PRN PRN Reason: Systolic >170 Last Admin: 11/05/16 23:53 Dose: 10 mg Hydromorphone HCl (Dilaudid Iv*) 0.5 mg IV Q2H PRN PRN Reason: PAIN Last Admin: 11/09/16 12:35 Dose: 0.5 mg Sodium Chloride (Ns 0.45% 1000 Ml Bag*) 1,000 mls @ 0 mls/hr IV KVO [facility] PRN Reason: KVO Labetalol HCl (Trandate Tab*) 200 mg PO BID [facility] Last Admin: 11/09/16 08:44 Dose: 200 mg Lorazepam (Ativan Inj*) 1 mg IV Q6H PRN PRN Reason: ANXIETY Last Admin: 11/09/16 09:02 Dose: 1 mg Melatonin (Melatonin (Nf)) 3 mg PO BEDTIME PRN; Protocol PRN Reason: Sleep Metoprolol Tartrate (Lopressor Tab*) 50 mg PO Q12HR [facility] Mometasone Furoate/Formoterol Fumar (Dulera 200/5 Mdi*) 2 puff INH BID [facility] Last Admin: 11/09/16 08:02 Dose: 2 puff Montelukast Sodium (Singulair Tab*) 10 mg PO DAILY [facility] Last Admin: 11/09/16 08:45 Dose: 10 mg Nicotine (Nicotine Inhaler*) 10 mg INH Q2H PRN PRN Reason: CRAVING Nitroglycerin (Nitroglycerin Tab 0.4 Mg*) 0.4 mg SL Q5M PRN PRN Reason: ANGINA Last Admin: 11/06/16 17:01 Dose: 0.4 mg Omeprazole (Prilosec Cap*) 20 mg PO DAILY@0600 [facility] Last Admin: 11/09/16 06:12 Dose: 20 mg Ondansetron HCl (Zofran Inj*) 4 mg IV Q6H PRN PRN Reason: NAUSEA Last Admin: 11/05/16 13:44 Dose: 4 mg Sevelamer Carbonate (Renvela Tab*) 4,800 mg PO TID WITH MEALS [facility] Last Admin: 11/09/16 12:34 Dose: 4,800 mg Tiotropium [place] (Spiriva Cap.Inh*) 1 cap INH DAILY [facility] Last Admin: 11/09/16 08:01 Dose: 1 cap Vital Signs 11/08/16 11/08/16 11/08/16 17:09 17:42 17:45 Temperature 98.7 F Pulse Rate 108 Respiratory 16 19 Rate Blood Pressure 152/101 (mmHg) O2 Sat by Pulse 96 100 Oximetry 11/08/16 11/08/16 11/08/16 18:42 19:28 20:00 Temperature 98.8 F Pulse Rate 109 103 Respiratory 16 24 18 Rate Blood Pressure 149/89 (mmHg) O2 Sat by Pulse 91 98 Oximetry 06/16/17 06/16/17 06/16/17 21:11 21:14 22:11 Temperature Pulse Rate Respiratory 18 18 16 Rate Blood Pressure (mmHg) O2 Sat by Pulse Oximetry 11/08/16 11/08/16 11/09/16 23:14 23:26 00:35 Temperature 98.0 F Pulse Rate 100 Respiratory 18 16 18 Rate Blood Pressure 150/97 (mmHg) O2 Sat by Pulse 96 Oximetry 11/09/16 11/09/16 11/09/16 00:38 01:35 01:38 Temperature Pulse Rate Respiratory 18 18 16 Rate Blood Pressure (mmHg) O2 Sat by Pulse Oximetry 11/09/16 11/09/16 11/09/16 03:32 03:37 03:38 Temperature 98.2 F 98.2 F Pulse Rate 106 86 Respiratory 16 17 16 Rate Blood Pressure 166/102 (mmHg) O2 Sat by Pulse 99 98 Oximetry 11/09/16 11/09/16 11/09/16 04:37 06:22 07:22 Temperature Pulse Rate Respiratory 18 18 16 Rate Blood Pressure (mmHg) O2 Sat by Pulse Oximetry 11/09/16 11/09/16 11/09/16 07:29 08:00 08:44 Temperature 98.1 F Pulse Rate 89 Respiratory 16 16 16 Rate Blood Pressure 151/102 (mmHg) O2 Sat by Pulse 100 100 Oximetry 11/09/16 11/09/16 11/09/16 08:45 09:02 09:45 Temperature Pulse Rate Respiratory 16 16 12 Rate Blood Pressure (mmHg) O2 Sat by Pulse Oximetry 11/09/16 11/09/16 11/09/16 10:02 10:44 11:40 Temperature 97.4 F Pulse Rate 83 Respiratory 12 14 16 Rate Blood Pressure 152/84 (mmHg) O2 Sat by Pulse 100 Oximetry 11/09/16 11/09/16 11/09/16 12:34 12:35 13:34 Temperature Pulse Rate 87 Respiratory 16 16 Rate Blood Pressure 142/101 (mmHg) O2 Sat by Pulse Oximetry 11/09/16 11/09/16 11/09/16 13:35 14:34 15:18 Temperature 98.3 F Pulse Rate 79 Respiratory 14 18 18 Rate Blood Pressure 124/91 (mmHg) O2 Sat by Pulse 98 Oximetry 11/09/16 15:44 Temperature Pulse Rate Respiratory Rate Blood Pressure (mmHg) O2 Sat by Pulse 98 Oximetry Oxygen Devices in Use Now: Nasal Cannula Appearance: NAD Eyes: No Scleral Icterus, PERRLA Ears/Nose/Mouth/Throat: Mucous Membranes Moist Neck: NL Appearance and Movements; NL JVP, Trachea Midline Respiratory: Symmetrical Chest Expansion and Respiratory Effort, Clear to Auscultation Cardiovascular: - - IRIR, 3/6 MYRNA Abdominal: NL Sounds; No Tenderness; No Distention, No Hepatosplenomegaly Lymphatic: No Cervical Adenopathy Extremities: No Edema Neurological: Alert and Oriented x 3 Result Diagrams: 11/05/16 05:22 11/05/16 05:22 Additional Lab and Data: Lab Results 11/04/16 11/04/16 11/04/16 Range/Units 20:56 20:56 20:56 WBC 8.6 (3.5-10.8) 10^3/ul RBC 2.32 L (4.0-5.4) 10^6/ul Hgb 7.6 L (12.0-16.0) g/dl Hct 23 L (35-47) % MCV 99 H (80-97) fL MCH 33 H (27-31) pg MCHC 33 (31-36) g/dl RDW 18 H (10.5-15) % Plt Count 178 (150-450) 10^3/ul MPV 9 (7.4-10.4) um3 Absolute Neuts (auto) 5.8 (1.5-7.7) 10^3/ul Absolute Lymphs (auto) 1.5 (1.0-4.8) 10^3/ul Absolute Monos (auto) 0.9 H (0-0.8) 10^3/ul Absolute Eos (auto) 0.3 (0-0.6) 10^3/ul Absolute Basos (auto) 0.1 (0-0.2) 10^3/ul Absolute Nucleated RBC Not Reportable Neutrophils % 68 (38-83) % Lymphocytes % 18 L (25-47) % Monocytes % 10 (0-13) % Eosinophils % 3 (0-6) % Basophils % 1 (0-2) % Normal RBC Morphology Not Reportable Polychromasia 1+ Macrocytosis 2+ Elliptocytes 1+ Schistocytes 1+ Hem Pathologist Commnt Pending INR (Anticoag Therapy) 1.02 (0.89-1.11) Sodium 134 (133-145) mmol/L Potassium 4.1 (3.5-5.0) mmol/L Chloride 92 L (101-111) mmol/L Carbon Dioxide 31 (22-32) mmol/L Anion Gap 11 (2-11) mmol/L BUN 50 H (6-24) mg/dL Creatinine 8.98 H (0.51-0.95) mg/dL Est GFR ( Amer) 6.1 (>60) Est GFR (Non-Af Amer) 4.7 (>60) BUN/Creatinine Ratio 5.6 L (8-20) Glucose 89 (70-100) mg/dL Lactic Acid (0.5-2.0) mmol/L Calcium 9.9 (8.6-10.3) mg/dL Total Bilirubin 0.60 (0.2-1.0) mg/dL AST 18 (13-39) U/L ALT 12 (7-52) U/L Alkaline Phosphatase 70 (34-104) U/L Troponin I 0.07 H* (<0.04) ng/mL B-Natriuretic Peptide ( - 100) pg/mL Total Protein 6.6 (6.4-8.9) g/dL Albumin 4.0 (3.2-5.2) g/dL Globulin 2.6 (2-4) g/dL Albumin/Globulin Ratio 1.5 (1-3) 11/04/16 11/04/16 Range/Units 20:56 20:56 WBC (3.5-10.8) 10^3/ul RBC (4.0-5.4) 10^6/ul Hgb (12.0-16.0) g/dl Hct (35-47) % MCV (80-97) fL MCH (27-31) pg MCHC (31-36) g/dl RDW (10.5-15) % Plt Count (150-450) 10^3/ul MPV (7.4-10.4) um3 Absolute Neuts (auto) (1.5-7.7) 10^3/ul Absolute Lymphs (auto) (1.0-4.8) 10^3/ul Absolute Monos (auto) (0-0.8) 10^3/ul Absolute Eos (auto) (0-0.6) 10^3/ul Absolute Basos (auto) (0-0.2) 10^3/ul Absolute Nucleated RBC Neutrophils % (38-83) % Lymphocytes % (25-47) % Monocytes % (0-13) % Eosinophils % (0-6) % Basophils % (0-2) % Normal RBC Morphology Polychromasia Macrocytosis Elliptocytes Schistocytes Hem Pathologist Commnt INR (Anticoag Therapy) (0.89-1.11) Sodium (133-145) mmol/L Potassium (3.5-5.0) mmol/L Chloride (101-111) mmol/L Carbon Dioxide (22-32) mmol/L Anion Gap (2-11) mmol/L BUN (6-24) mg/dL Creatinine (0.51-0.95) mg/dL Est GFR ( Amer) (>60) Est GFR (Non-Af Amer) (>60) BUN/Creatinine Ratio (8-20) Glucose (70-100) mg/dL Lactic Acid 1.1 (0.5-2.0) mmol/L Calcium (8.6-10.3) mg/dL Total Bilirubin (0.2-1.0) mg/dL AST (13-39) U/L ALT (7-52) U/L Alkaline Phosphatase (34-104) U/L Troponin I (<0.04) ng/mL B-Natriuretic Peptide 2586 H ( - 100) pg/mL Total Protein (6.4-8.9) g/dL Albumin (3.2-5.2) g/dL Globulin (2-4) g/dL Albumin/Globulin Ratio (1-3) Assess/Plan/Problems-Billing Assessment: 46 yo F h/o ESRD on HD x 10 yr, pulmonary embolism c/b alveolar hemorrhage, afib , AVR complicated by stenosis and TAVR 05/2016 p/w progressively worsening SOB - Patient Problems (1) Shortness of breath Comment: -5 kg removed at dialysis 11/06 without imrpovement in SOB Dialysis 11/08 without improvement. Pt now at dry weight repeat CXR s/p dialysis showed improvement in vascular congestion -Stress test with reversible ischemia but LHC 05/2016 at [place] (under outside records in scanned records here) with no appreciable disease. Unclear if this represents a false positive result or new disease. TAWANA and TTE indicate functioning AV valve but worsening TR. -It is suspected that her thick ventricle and MR (in conjunction with poor underlying pulmonary fxn) are contributing to symtoms. Goal is to slow down heart and control BP better. Increased metoprolol from 25BID to 50BID with and extra 50mg initial dose thsi AM (total 75 mg this AM). Plan for observation overnight on this dose and d/c tomorrow on highest dose in order to maintain controlled HR and normotension (2) Afib Comment: dilt, toprol, labetalol jonathon (3) S/P AVR (aortic valve replacement) Comment: TAWANA with functional valve TAVR in may (4) ESRD (end stage renal disease) on dialysis Comment: HD T/T/Sat as outpatient last friday (5) DVT prophylaxis Comment: jonathon
[2016-11-09] MEDS ORDERED: Isosorbide Mononitrate ER TAB* 30 MG PO SCH (18:54)
[2016-11-09] MEDS: Metoprolol Tartrate TAB* 50 mg PO SCH (20:01)
[2016-11-10] MEDS: HYDROmorphone* 1 MG/ML 1 ML SYR IV PRN ×4 (01:23→10:53)
[2016-11-10] MEDS: LORazepam INJ* 2 MG/ML 1 ML VIAL IV PRN ×2 (04:02→10:48)
[2016-11-10] MEDS: Omeprazole CAP* 20 MG PO SCH (05:30)
[2016-11-10] MEDS: Tiotropium CAP.INH* CAP.INH/18 MCG INH SCH (07:36)
[2016-11-10] MEDS: Mometasone/Formoter 200/5 MDI INH SCH ×2 (07:36→20:06)
[2016-11-10] MEDS: Sevelamer TAB* 800 MG PO SCH ×3 (08:17→16:33)
[2016-11-10] MEDS: Cinacalcet TAB* 30 MG PO SCH (08:18)
[2016-11-10] MEDS: Atorvastatin* 80 MG TAB PO SCH (08:19)
[2016-11-10] MEDS: Docusate CAP* 100 MG PO SCH (08:19)
[2016-11-10] MEDS: Metoprolol Tartrate TAB* 50 mg PO SCH ×2 (08:19→20:45)
[2016-11-10] MEDS: Montelukast Sodium TAB* 10 MG PO SCH (08:19)
[2016-11-10] MEDS: Labetalol TAB* 200 MG PO SCH ×2 (08:19→20:46)
[2016-11-10] MEDS: guaiFENesin ER TAB 600 MG PO SCH ×2 (08:19→20:45)
[2016-11-10] MEDS: Gabapentin CAP(*) 100 MG PO SCH ×3 (08:19→20:44)
[2016-11-10] MEDS: Apixaban* 5 MG TAB PO SCH ×2 (08:19→20:48)
[2016-11-10] MEDS: Diltiazem CD CAP* 240 MG PO SCH (08:19)
[2016-11-10] MEDS: amLODIPine TAB* 5 MG PO SCH (08:19)
[2016-11-10] MEDS: Aspirin Low Dose CHEW TAB* 81 MG PO SCH (08:19)
[2016-11-10] MEDS ORDERED: Morphine ORAL.SOLN 10 mg* 2 MG/ML UDC 5 ml PO PRN ×2 (15:34→16:52)
--- NOTE | 2016-11-10 15:40 | PN ---
Subjective Date of Service: 11/10/16 Interval History: C/O pain L chest. Relieved by IV hydromorphone. She states she has oxycodone 15 mg at home which does not relieve her pain. She also c/o PAULINO, has to stop on her way to the [place] to get her breath. Objective Active Medications: Acetaminophen (Tylenol Tab*) 650 mg PO Q6H PRN PRN Reason: FEVER/PAIN Last Admin: 11/09/16 03:37 Dose: 650 mg Albuterol (Ventolin 2.5 Mg/3 Ml Neb.Tonya*) 2.5 mg INH Q4H PRN PRN Reason: SOB/WHEEZING Amlodipine Besylate (Norvasc Tab*) 5 mg PO DAILY [facility] Last Admin: 11/10/16 08:19 Dose: 5 mg Apixaban (Eliquis*) 5 mg PO BID [facility] Last Admin: 11/10/16 08:19 Dose: 5 mg Aspirin (Aspirin Low Dose Tab*) 81 mg PO DAILY [facility] Last Admin: 11/10/16 08:19 Dose: 81 mg Atorvastatin Calcium (Lipitor*) 80 mg PO DAILY [facility] Last Admin: 11/10/16 08:19 Dose: 80 mg Cinacalcet (Sensipar Tab*) 90 mg PO DAILY [facility] Last Admin: 11/10/16 08:18 Dose: 90 mg Diltiazem HCl (Cardizem Cd Cap*) 240 mg PO DAILY [facility] Last Admin: 11/10/16 08:19 Dose: 240 mg Docusate Sodium (Colace Cap*) 200 mg PO DAILY [facility] Fentanyl (Duragesic Patch 25 Mcg/Hr*) 25 mcg TRANSDERM Q72H [facility] Gabapentin (Neurontin Cap(*)) 100 mg PO TID [facility] Last Admin: 11/10/16 08:19 Dose: 100 mg Guaifenesin (Mucinex*) 1,200 mg PO BID [facility] Last Admin: 11/10/16 08:19 Dose: 1,200 mg Labetalol HCl (Trandate Tab*) 200 mg PO BID [facility] Last Admin: 11/10/16 08:19 Dose: 200 mg Metoprolol Tartrate (Lopressor Tab*) 50 mg PO Q12HR [facility] Last Admin: 11/10/16 08:19 Dose: 50 mg Mometasone Furoate/Formoterol Fumar (Dulera 200/5 Mdi*) 2 puff INH BID [facility] Last Admin: 11/10/16 07:36 Dose: 2 puff Montelukast Sodium (Singulair Tab*) 10 mg PO DAILY [facility] Last Admin: 11/10/16 08:19 Dose: 10 mg Morphine Sulfate (Morphine Oral Concentrate*) 5 mg PO Q2H PRN PRN Reason: PAIN Nicotine (Nicotine Inhaler*) 10 mg INH Q2H PRN PRN Reason: CRAVING Nitroglycerin (Nitroglycerin Tab 0.4 Mg*) 0.4 mg SL Q5M PRN PRN Reason: ANGINA Last Admin: 11/06/16 17:01 Dose: 0.4 mg Omeprazole (Prilosec Cap*) 20 mg PO DAILY@0600 [facility] Last Admin: 11/10/16 05:30 Dose: 20 mg Ondansetron HCl (Zofran Inj*) 4 mg IV Q6H PRN PRN Reason: NAUSEA Last Admin: 11/05/16 13:44 Dose: 4 mg Sevelamer Carbonate (Renvela Tab*) 4,800 mg PO TID WITH MEALS [facility] Last Admin: 11/10/16 14:51 Dose: Not Given Tiotropium [place] (Spiriva Cap.Inh*) 1 cap INH DAILY [facility] Last Admin: 11/10/16 07:36 Dose: 1 cap Vital Signs 11/09/16 11/09/16 11/09/16 15:44 16:58 16:59 Temperature Pulse Rate Respiratory 16 16 Rate Blood Pressure (mmHg) O2 Sat by Pulse 98 Oximetry 11/09/16 11/09/16 11/09/16 17:58 17:59 20:00 Temperature Pulse Rate Respiratory 16 16 19 Rate Blood Pressure (mmHg) O2 Sat by Pulse Oximetry 11/09/16 11/09/16 11/09/16 20:01 20:06 20:09 Temperature Pulse Rate 73 Respiratory 18 18 19 Rate Blood Pressure (mmHg) O2 Sat by Pulse 97 Oximetry 11/09/16 11/09/16 11/09/16 20:21 21:09 22:01 Temperature 98.0 F Pulse Rate 63 Respiratory 18 17 18 Rate Blood Pressure 152/92 (mmHg) O2 Sat by Pulse 97 Oximetry 11/09/16 11/09/16 11/10/16 22:16 23:36 00:11 Temperature 98.4 F Pulse Rate Respiratory 20 Rate Blood Pressure 154/82 (mmHg) O2 Sat by Pulse 94 99 97 Oximetry 11/10/16 11/10/16 11/10/16 01:23 02:23 03:51 Temperature 97.6 F Pulse Rate 76 Respiratory 18 19 20 Rate Blood Pressure 152/97 (mmHg) O2 Sat by Pulse 97 Oximetry 11/10/16 11/10/16 11/10/16 03:55 04:02 04:55 Temperature Pulse Rate Respiratory 19 19 18 Rate Blood Pressure (mmHg) O2 Sat by Pulse Oximetry 11/10/16 11/10/16 11/10/16 05:02 07:34 07:38 Temperature 98.6 F Pulse Rate 84 102 Respiratory 19 16 20 Rate Blood Pressure 149/79 (mmHg) O2 Sat by Pulse 100 98 Oximetry 11/10/16 11/10/16 11/10/16 08:00 08:19 08:20 Temperature Pulse Rate Respiratory 16 16 16 Rate Blood Pressure (mmHg) O2 Sat by Pulse 98 Oximetry 11/10/16 11/10/16 11/10/16 09:20 10:16 10:48 Temperature Pulse Rate Respiratory 16 16 16 Rate Blood Pressure (mmHg) O2 Sat by Pulse Oximetry 11/10/16 11/10/16 11/10/16 10:53 11:48 11:51 Temperature Pulse Rate 70 Respiratory 16 16 14 Rate Blood Pressure 126/87 (mmHg) O2 Sat by Pulse 94 Oximetry 11/10/16 11/10/16 11:53 12:21 Temperature 97.6 F Pulse Rate Respiratory 16 Rate Blood Pressure (mmHg) O2 Sat by Pulse Oximetry Oxygen Devices in Use Now: Nasal Cannula Appearance: Alert, sitting up in bed. Looks discouraged. Eyes: No Scleral Icterus Respiratory: Symmetrical Chest Expansion and Respiratory Effort, Clear to Auscultation, Clear to Percussion Cardiovascular: NL Sounds; No Murmurs; No JVD - 2-3 systolic murmur across precordium, No Edema, - - irreg Extremities: No Edema, No Clubbing, Cyanosis, - Skin: No Rash or Ulcers, No Nodules or Sclerosis, - Neurological: Alert and Oriented x 3, NL Sensation Result Diagrams: 11/05/16 05:22 11/05/16 05:22 Additional Lab and Data: Lab Results 11/04/16 11/04/16 11/04/16 Range/Units 20:56 20:56 20:56 WBC 8.6 (3.5-10.8) 10^3/ul RBC 2.32 L (4.0-5.4) 10^6/ul Hgb 7.6 L (12.0-16.0) g/dl Hct 23 L (35-47) % MCV 99 H (80-97) fL MCH 33 H (27-31) pg MCHC 33 (31-36) g/dl RDW 18 H (10.5-15) % Plt Count 178 (150-450) 10^3/ul MPV 9 (7.4-10.4) um3 Absolute Neuts (auto) 5.8 (1.5-7.7) 10^3/ul Absolute Lymphs (auto) 1.5 (1.0-4.8) 10^3/ul Absolute Monos (auto) 0.9 H (0-0.8) 10^3/ul Absolute Eos (auto) 0.3 (0-0.6) 10^3/ul Absolute Basos (auto) 0.1 (0-0.2) 10^3/ul Absolute Nucleated RBC Not Reportable Neutrophils % 68 (38-83) % Lymphocytes % 18 L (25-47) % Monocytes % 10 (0-13) % Eosinophils % 3 (0-6) % Basophils % 1 (0-2) % Normal RBC Morphology Not Reportable Polychromasia 1+ Macrocytosis 2+ Elliptocytes 1+ Schistocytes 1+ Hem Pathologist Commnt Pending INR (Anticoag Therapy) 1.02 (0.89-1.11) Sodium 134 (133-145) mmol/L Potassium 4.1 (3.5-5.0) mmol/L Chloride 92 L (101-111) mmol/L Carbon Dioxide 31 (22-32) mmol/L Anion Gap 11 (2-11) mmol/L BUN 50 H (6-24) mg/dL Creatinine 8.98 H (0.51-0.95) mg/dL Est GFR ( Amer) 6.1 (>60) Est GFR (Non-Af Amer) 4.7 (>60) BUN/Creatinine Ratio 5.6 L (8-20) Glucose 89 (70-100) mg/dL Lactic Acid (0.5-2.0) mmol/L Calcium 9.9 (8.6-10.3) mg/dL Total Bilirubin 0.60 (0.2-1.0) mg/dL AST 18 (13-39) U/L ALT 12 (7-52) U/L Alkaline Phosphatase 70 (34-104) U/L Troponin I 0.07 H* (<0.04) ng/mL B-Natriuretic Peptide ( - 100) pg/mL Total Protein 6.6 (6.4-8.9) g/dL Albumin 4.0 (3.2-5.2) g/dL Globulin 2.6 (2-4) g/dL Albumin/Globulin Ratio 1.5 (1-3) 11/04/16 11/04/16 Range/Units 20:56 20:56 WBC (3.5-10.8) 10^3/ul RBC (4.0-5.4) 10^6/ul Hgb (12.0-16.0) g/dl Hct (35-47) % MCV (80-97) fL MCH (27-31) pg MCHC (31-36) g/dl RDW (10.5-15) % Plt Count (150-450) 10^3/ul MPV (7.4-10.4) um3 Absolute Neuts (auto) (1.5-7.7) 10^3/ul Absolute Lymphs (auto) (1.0-4.8) 10^3/ul Absolute Monos (auto) (0-0.8) 10^3/ul Absolute Eos (auto) (0-0.6) 10^3/ul Absolute Basos (auto) (0-0.2) 10^3/ul Absolute Nucleated RBC Neutrophils % (38-83) % Lymphocytes % (25-47) % Monocytes % (0-13) % Eosinophils % (0-6) % Basophils % (0-2) % Normal RBC Morphology Polychromasia Macrocytosis Elliptocytes Schistocytes Hem Pathologist Commnt INR (Anticoag Therapy) (0.89-1.11) Sodium (133-145) mmol/L Potassium (3.5-5.0) mmol/L Chloride (101-111) mmol/L Carbon Dioxide (22-32) mmol/L Anion Gap (2-11) mmol/L BUN (6-24) mg/dL Creatinine (0.51-0.95) mg/dL Est GFR ( Amer) (>60) Est GFR (Non-Af Amer) (>60) BUN/Creatinine Ratio (8-20) Glucose (70-100) mg/dL Lactic Acid 1.1 (0.5-2.0) mmol/L Calcium (8.6-10.3) mg/dL Total Bilirubin (0.2-1.0) mg/dL AST (13-39) U/L ALT (7-52) U/L Alkaline Phosphatase (34-104) U/L Troponin I (<0.04) ng/mL B-Natriuretic Peptide 2586 H ( - 100) pg/mL Total Protein (6.4-8.9) g/dL Albumin (3.2-5.2) g/dL Globulin (2-4) g/dL Albumin/Globulin Ratio (1-3) Assess/Plan/Problems-Billing Assessment: 46 yo F h/o ESRD on HD x 10 yr, pulmonary embolism c/b alveolar hemorrhage, afib , AVR complicated by stenosis and TAVR 05/2016 p/w progressively worsening SOB - Patient Problems (1) Afib Current Visit: Yes Status: Acute Code(s): I48.91 - UNSPECIFIED ATRIAL FIBRILLATION SNOMED Code(s): 77349179 Comment: dilt, metoprolol, labetalol eliquis HR better 11/10 after metoprolol increased. (2) ESRD (end stage renal disease) on dialysis Current Visit: Yes Status: Acute Code(s): N18.6 - END STAGE RENAL DISEASE; Z99.2 - DEPENDENCE ON RENAL DIALYSIS SNOMED Code(s): 467584026 Comment: HD T/T/Sat as outpatient last inpatient 11/08. (3) Chest pain Current Visit: No Status: Acute Code(s): R07.9 - CHEST PAIN, UNSPECIFIED SNOMED Code(s): 87305612 Comment: Dilated veins on L chest likely signal central vein occlusion. Start fentanyl patch and oral MS concentrate. Hopefully will have adequate pain control 11/11 to allow discharge, possibly with larger doses of fentanyl and/or MS. (4) S/P AVR (aortic valve replacement) Current Visit: Yes Status: Acute Code(s): Z95.2 - PRESENCE OF PROSTHETIC HEART VALVE SNOMED Code(s): 3227447764825 Comment: TAWANA with functional valve TAVR in may
[2016-11-10] MEDS ORDERED: fentaNYL PATCH 25 MCG/HR TRANSDERM SCH (16:00)
[2016-11-10] MEDS: ALPRAZolam TAB* 0.25 MG PO PRN ×2 (16:33→21:33)
--- NOTE | 2016-11-10 16:41 | PN ---
Progress Note - Progress Note Note: Time spent on discharge 55 minutes.
--- NOTE | 2016-11-10 16:41 | PN ---
"Progress Note - Progress Note Note: This report was requested by: Kenji Templeton | Reference #: [id number] Others' Prescriptions Patient Name: Juany Joseph Date: 1970 Address: [address] [place] [address] Sex: Female Rx Written Rx Dispensed Drug Quantity Days Supply Prescriber Name 10/15/2016 10/22/2016 oxycodone hcl 15 mg tablet 120 30 GarciaMaria Isabel palmer 10/17/2016 10/22/2016 zolpidem tartrate 10 mg tablet 30 30 Franck Osorio MD 09/25/2016 09/25/2016 oxycodone hcl 15 mg tablet 120 30 GarciaMaria Isabel cintron 09/16/2016 09/18/2016 oxycodone-acetaminophen 5-325 mg tablet 56 14 Carlos Eduardo Mccrary 08/19/2016 08/21/2016 oxycodone hcl 15 mg tablet 120 30 Garcia, Maria Isabel 07/16/2016 07/25/2016 oxycodone hcl 15 mg tablet 120 30 Dora Campoverde () 06/21/2016 06/28/2016 alprazolam 0.25 mg tablet 9 3 Kenzie Bailey ([employer] ) 06/28/2016 06/28/2016 oxycodone hcl 15 mg tablet 120 30 Maria Isabel Garcia 06/21/2016 06/22/2016 oxycodone-acetaminophen 5-325 mg tablet 12 3 Kenzie Bailey ([employer]) 05/13/2016 05/13/2016 oxycodone hcl 5 mg tablet 20 5 Diogo Burns MD 04/16/2016 04/26/2016 lyrica 50 mg capsule 30 30 Erika Garcias 04/05/2016 04/07/2016 oxycodone hcl 15 mg tablet 120 30 GarciaMaria Isabel batista 03/07/2016 03/08/2016 oxycodone hcl 15 mg tablet 120 30 Garcia, Maria Isabel 02/07/2016 02/08/2016 oxycodone hcl 15 mg tablet 120 30 Garcia, Maria Isabel 01/10/2016 01/12/2016 oxycodone hcl 15 mg tablet 120 30 GarciaMaria Isabel 12/13/2015 12/14/2015 oxycodone hcl 15 mg tablet 120 30 Maria Isabel Garcia 11/14/2015 11/15/2015 oxycodone hcl 15 mg tablet 120 30 Maria Isabel Garcia Patient requested discharge now. Fup her PCP and Dr. Osorio."
[2016-11-10] MEDS ORDERED: Morphine ORAL CONCENTRATE* 5 MG/0.25 ML ORAL.SYRIN SL ONE (16:55)
[2016-11-10] MEDS: fentaNYL Patch Check Q Shift 1 NOTE SCH (18:53)
[2016-11-10] MEDS: Nitroglycerin TAB 0.4 MG* 0.4 MG TAB SL PRN (21:33)
[2016-11-11] MEDS ORDERED: oxyCODONE TAB* 5 MG TAB PO ONE ×2 (00:27→05:00)
[2016-11-11] MEDS: Acetaminophen TAB* 325 MG PO PRN (00:54)
[2016-11-11] MEDS: Omeprazole CAP* 20 MG PO SCH (05:23)
[2016-11-11] MEDS: Tiotropium CAP.INH* CAP.INH/18 MCG INH SCH (08:14)
[2016-11-11] MEDS: Mometasone/Formoter 200/5 MDI INH SCH ×2 (08:15→20:18)
[2016-11-11] MEDS ORDERED: oxyCODONE SR TAB(*) 20 MG TAB.SR PO SCH (09:00)
[2016-11-11] MEDS ORDERED: Docusate CAP* 100 MG PO SCH (09:00)
--- NOTE | 2016-11-11 09:01 | PN ---
Subjective Date of Service: 11/11/16 Interval History: C/O same severe pain L chest. Pt told staff the morphine solution burned her throat and the fentanyl patch burned her skin. Objective Active Medications: Acetaminophen (Tylenol Tab*) 650 mg PO Q6H PRN PRN Reason: FEVER/PAIN Last Admin: 11/11/16 00:54 Dose: 650 mg Albuterol (Ventolin 2.5 Mg/3 Ml Neb.Tonya*) 2.5 mg INH Q4H PRN PRN Reason: SOB/WHEEZING Alprazolam (Xanax Tab*) 0.25 mg PO TID PRN PRN Reason: AGITATION/ANXIETY Last Admin: 11/10/16 21:33 Dose: 0.25 mg Amlodipine Besylate (Norvasc Tab*) 5 mg PO DAILY [facility] Last Admin: 11/10/16 08:19 Dose: 5 mg Apixaban (Eliquis*) 5 mg PO BID [facility] Last Admin: 11/10/16 20:48 Dose: 5 mg Aspirin (Aspirin Low Dose Tab*) 81 mg PO DAILY [facility] Last Admin: 11/10/16 08:19 Dose: 81 mg Atorvastatin Calcium (Lipitor*) 80 mg PO DAILY [facility] Last Admin: 11/10/16 08:19 Dose: 80 mg Cinacalcet (Sensipar Tab*) 90 mg PO DAILY [facility] Last Admin: 11/10/16 08:18 Dose: 90 mg Diltiazem HCl (Cardizem Cd Cap*) 240 mg PO DAILY [facility] Last Admin: 11/10/16 08:19 Dose: 240 mg Docusate Sodium (Colace Cap*) 200 mg PO DAILY [facility] Gabapentin (Neurontin Cap(*)) 100 mg PO TID [facility] Last Admin: 11/10/16 20:44 Dose: 100 mg Guaifenesin (Mucinex*) 1,200 mg PO BID [facility] Last Admin: 11/10/16 20:45 Dose: 1,200 mg Labetalol HCl (Trandate Tab*) 200 mg PO BID [facility] Last Admin: 11/10/16 20:46 Dose: 200 mg Metoprolol Tartrate (Lopressor Tab*) 50 mg PO Q12HR [facility] Last Admin: 11/10/16 20:45 Dose: 50 mg Mometasone Furoate/Formoterol Fumar (Dulera 200/5 Mdi*) 2 puff INH BID [facility] Last Admin: 11/11/16 08:15 Dose: 2 puff Montelukast Sodium (Singulair Tab*) 10 mg PO DAILY [facility] Last Admin: 11/10/16 08:19 Dose: 10 mg Nicotine (Nicotine Inhaler*) 10 mg INH Q2H PRN PRN Reason: CRAVING Nitroglycerin (Nitroglycerin Tab 0.4 Mg*) 0.4 mg SL Q5M PRN PRN Reason: ANGINA Last Admin: 11/10/16 21:33 Dose: 0.4 mg Omeprazole (Prilosec Cap*) 20 mg PO DAILY@0600 [facility] Last Admin: 11/11/16 05:23 Dose: 20 mg Ondansetron HCl (Zofran Inj*) 4 mg IV Q6H PRN PRN Reason: NAUSEA Last Admin: 11/05/16 13:44 Dose: 4 mg Oxycodone HCl (Oxycontin(*)) 20 mg PO Q12HR [facility] Oxycodone HCl (Roxycodone Tab*) 20 mg PO Q4H PRN PRN Reason: PAIN Pharmacy Profile Note (Fentanyl Patch Check Q Shift) 1 note N/A 0700,1900 [facility] Last Admin: 11/10/16 18:53 Dose: 1 note Sevelamer Carbonate (Renvela Tab*) 4,800 mg PO TID WITH MEALS [facility] Last Admin: 11/10/16 16:33 Dose: 4,800 mg Tiotropium [place] (Spiriva Cap.Inh*) 1 cap INH DAILY [facility] Last Admin: 11/11/16 08:14 Dose: 1 cap Vital Signs 11/10/16 11/10/16 11/10/16 09:20 10:16 10:48 Temperature Pulse Rate Respiratory 16 16 16 Rate Blood Pressure (mmHg) O2 Sat by Pulse Oximetry 11/10/16 11/10/16 11/10/16 10:53 11:48 11:51 Temperature Pulse Rate 70 Respiratory 16 16 14 Rate Blood Pressure 126/87 (mmHg) O2 Sat by Pulse 94 Oximetry 11/10/16 11/10/16 11/10/16 11:53 12:21 15:49 Temperature 97.6 F 98.3 F Pulse Rate 85 Respiratory 16 20 Rate Blood Pressure 133/96 (mmHg) O2 Sat by Pulse 99 Oximetry 11/10/16 11/10/16 11/10/16 16:00 16:03 16:06 Temperature Pulse Rate Respiratory 16 16 Rate Blood Pressure (mmHg) O2 Sat by Pulse 99 Oximetry 11/10/16 11/10/16 11/10/16 16:10 16:33 18:03 Temperature Pulse Rate Respiratory 16 16 18 Rate Blood Pressure (mmHg) O2 Sat by Pulse Oximetry 11/10/16 11/10/16 11/10/16 18:06 18:33 19:30 Temperature 97.4 F Pulse Rate 87 Respiratory 18 18 20 Rate Blood Pressure 128/87 (mmHg) O2 Sat by Pulse 98 Oximetry 11/10/16 11/10/16 11/10/16 19:51 20:00 20:08 Temperature Pulse Rate 93 20 Respiratory 20 20 97 Rate Blood Pressure 131/92 (mmHg) O2 Sat by Pulse 100 97 Oximetry 11/10/16 11/10/16 11/10/16 20:44 21:33 22:44 Temperature Pulse Rate Respiratory 16 16 16 Rate Blood Pressure (mmHg) O2 Sat by Pulse Oximetry 11/10/16 11/10/16 11/11/16 23:33 23:44 00:00 Temperature 98.3 F Pulse Rate 91 Respiratory 16 20 Rate Blood Pressure 139/93 (mmHg) O2 Sat by Pulse 100 100 Oximetry 11/11/16 11/11/16 11/11/16 00:53 01:33 03:33 Temperature Pulse Rate Respiratory 18 16 22 Rate Blood Pressure (mmHg) O2 Sat by Pulse Oximetry 11/11/16 11/11/16 11/11/16 04:26 05:23 07:55 Temperature 97.7 F Pulse Rate 60 Respiratory 20 16 22 Rate Blood Pressure 139/89 (mmHg) O2 Sat by Pulse 98 98 Oximetry 11/11/16 08:18 Temperature Pulse Rate 92 Respiratory 16 Rate Blood Pressure (mmHg) O2 Sat by Pulse 93 Oximetry Oxygen Devices in Use Now: Nasal Cannula Appearance: Alert, sitting up in bed. Looks distressed. Eyes: No Scleral Icterus Neck: NL Appearance and Movements; NL JVP, No Thyroid Enlargement, Masses Respiratory: Symmetrical Chest Expansion and Respiratory Effort, Clear to Auscultation, Clear to Percussion Cardiovascular: No Edema, - - irreg. 2/6 systolic murmur RSB. Many dilated veins L chest Extremities: No Edema, No Clubbing, Cyanosis, - Skin: No Rash or Ulcers, No Nodules or Sclerosis, - Neurological: Alert and Oriented x 3, NL Sensation Result Diagrams: 11/05/16 05:22 11/05/16 05:22 Additional Lab and Data: Lab Results 11/04/16 11/04/16 11/04/16 Range/Units 20:56 20:56 20:56 WBC 8.6 (3.5-10.8) 10^3/ul RBC 2.32 L (4.0-5.4) 10^6/ul Hgb 7.6 L (12.0-16.0) g/dl Hct 23 L (35-47) % MCV 99 H (80-97) fL MCH 33 H (27-31) pg MCHC 33 (31-36) g/dl RDW 18 H (10.5-15) % Plt Count 178 (150-450) 10^3/ul MPV 9 (7.4-10.4) um3 Absolute Neuts (auto) 5.8 (1.5-7.7) 10^3/ul Absolute Lymphs (auto) 1.5 (1.0-4.8) 10^3/ul Absolute Monos (auto) 0.9 H (0-0.8) 10^3/ul Absolute Eos (auto) 0.3 (0-0.6) 10^3/ul Absolute Basos (auto) 0.1 (0-0.2) 10^3/ul Absolute Nucleated RBC Not Reportable Neutrophils % 68 (38-83) % Lymphocytes % 18 L (25-47) % Monocytes % 10 (0-13) % Eosinophils % 3 (0-6) % Basophils % 1 (0-2) % Normal RBC Morphology Not Reportable Polychromasia 1+ Macrocytosis 2+ Elliptocytes 1+ Schistocytes 1+ Hem Pathologist Commnt Pending INR (Anticoag Therapy) 1.02 (0.89-1.11) Sodium 134 (133-145) mmol/L Potassium 4.1 (3.5-5.0) mmol/L Chloride 92 L (101-111) mmol/L Carbon Dioxide 31 (22-32) mmol/L Anion Gap 11 (2-11) mmol/L BUN 50 H (6-24) mg/dL Creatinine 8.98 H (0.51-0.95) mg/dL Est GFR ( Amer) 6.1 (>60) Est GFR (Non-Af Amer) 4.7 (>60) BUN/Creatinine Ratio 5.6 L (8-20) Glucose 89 (70-100) mg/dL Lactic Acid (0.5-2.0) mmol/L Calcium 9.9 (8.6-10.3) mg/dL Total Bilirubin 0.60 (0.2-1.0) mg/dL AST 18 (13-39) U/L ALT 12 (7-52) U/L Alkaline Phosphatase 70 (34-104) U/L Troponin I 0.07 H* (<0.04) ng/mL B-Natriuretic Peptide ( - 100) pg/mL Total Protein 6.6 (6.4-8.9) g/dL Albumin 4.0 (3.2-5.2) g/dL Globulin 2.6 (2-4) g/dL Albumin/Globulin Ratio 1.5 (1-3) 11/04/16 11/04/16 Range/Units 20:56 20:56 WBC (3.5-10.8) 10^3/ul RBC (4.0-5.4) 10^6/ul Hgb (12.0-16.0) g/dl Hct (35-47) % MCV (80-97) fL MCH (27-31) pg MCHC (31-36) g/dl RDW (10.5-15) % Plt Count (150-450) 10^3/ul MPV (7.4-10.4) um3 Absolute Neuts (auto) (1.5-7.7) 10^3/ul Absolute Lymphs (auto) (1.0-4.8) 10^3/ul Absolute Monos (auto) (0-0.8) 10^3/ul Absolute Eos (auto) (0-0.6) 10^3/ul Absolute Basos (auto) (0-0.2) 10^3/ul Absolute Nucleated RBC Neutrophils % (38-83) % Lymphocytes % (25-47) % Monocytes % (0-13) % Eosinophils % (0-6) % Basophils % (0-2) % Normal RBC Morphology Polychromasia Macrocytosis Elliptocytes Schistocytes Hem Pathologist Commnt INR (Anticoag Therapy) (0.89-1.11) Sodium (133-145) mmol/L Potassium (3.5-5.0) mmol/L Chloride (101-111) mmol/L Carbon Dioxide (22-32) mmol/L Anion Gap (2-11) mmol/L BUN (6-24) mg/dL Creatinine (0.51-0.95) mg/dL Est GFR ( Amer) (>60) Est GFR (Non-Af Amer) (>60) BUN/Creatinine Ratio (8-20) Glucose (70-100) mg/dL Lactic Acid 1.1 (0.5-2.0) mmol/L Calcium (8.6-10.3) mg/dL Total Bilirubin (0.2-1.0) mg/dL AST (13-39) U/L ALT (7-52) U/L Alkaline Phosphatase (34-104) U/L Troponin I (<0.04) ng/mL B-Natriuretic Peptide 2586 H ( - 100) pg/mL Total Protein (6.4-8.9) g/dL Albumin (3.2-5.2) g/dL Globulin (2-4) g/dL Albumin/Globulin Ratio (1-3) Assess/Plan/Problems-Billing Assessment: 46 yo F h/o ESRD on HD x 10 yr, pulmonary embolism c/b alveolar hemorrhage, afib , AVR complicated by stenosis and TAVR 05/2016 p/w progressively worsening SOB - Patient Problems (1) Afib Status: Acute Code(s): I48.91 - UNSPECIFIED ATRIAL FIBRILLATION SNOMED Code( s): 60270450 Comment: dilt, metoprolol, labetalol eliquis HR better 11/10 after metoprolol increased. (2) ESRD (end stage renal disease) on dialysis Status: Acute Code(s): N18.6 - END STAGE RENAL DISEASE; Z99.2 - DEPENDENCE ON RENAL DIALYSIS SNOMED Code(s): 650946584 Comment: HD T/T/Sat as outpatient last inpatient 11/08. (3) Chest pain Status: Acute Code(s): R07.9 - CHEST PAIN, UNSPECIFIED SNOMED Code(s): 49292597 Comment: Dilated veins on L chest likely signal central vein occlusion. MRI chest ordered. Did not tolerate fentanyl patch or MS solution. Her insurance won't cover oxycodone SR, will rx oxycodone 20 mg IR qid. (4) S/P AVR (aortic valve replacement) Status: Acute Code(s): Z95.2 - PRESENCE OF PROSTHETIC HEART VALVE SNOMED Code(s): 1644198240216 Comment: TAWANA with functional valve TAVR in may
[2016-11-11] MEDS: oxyCODONE TAB* 5 MG TAB PO PRN ×2 (10:36→17:29)
[2016-11-11] MEDS: ALPRAZolam TAB* 0.25 MG PO PRN ×2 (10:37→17:29)
[2016-11-11] MEDS: fentaNYL Patch Check Q Shift 1 NOTE SCH ×2 (10:38→19:28)
[2016-11-11] MEDS: Sevelamer TAB* 800 MG PO SCH ×3 (10:41→17:26)
[2016-11-11] MEDS ORDERED: Epoetin Alfa* 10,000 UNITS/ML VIAL IV ONE (13:00)
[2016-11-11] MEDS ORDERED: Heparin DIALYSIS ONLY(*) 1,000 UNITS/ML VIAL DIALYSIS ONE (13:00)
[2016-11-11] MEDS ORDERED: Epoetin Alfa* 3,000 UNITS/ML VIAL IV ONE (13:00)
[2016-11-11] MEDS ORDERED: Epoetin Alfa* 2,000 UNITS/ML VIAL IV ONE (13:00)
[2016-11-11] MEDS: guaiFENesin ER TAB 600 MG PO SCH (17:27)
[2016-11-11] MEDS: Atorvastatin* 80 MG TAB PO SCH (17:27)
[2016-11-11] MEDS: Cinacalcet TAB* 30 MG PO SCH (17:27)
[2016-11-11] MEDS: Diltiazem CD CAP* 240 MG PO SCH (17:28)
[2016-11-11] MEDS: Gabapentin CAP(*) 100 MG PO SCH ×2 (17:28→17:37)
[2016-11-11] MEDS: amLODIPine TAB* 5 MG PO SCH (17:28)
[2016-11-11] MEDS: Aspirin Low Dose CHEW TAB* 81 MG PO SCH (17:29)
[2016-11-11] MEDS: Apixaban* 5 MG TAB PO SCH (17:29)
[2016-11-11] MEDS: Labetalol TAB* 200 MG PO SCH (17:36)
[2016-11-11] MEDS: Montelukast Sodium TAB* 10 MG PO SCH (17:37)
[2016-11-11] MEDS: Metoprolol Tartrate TAB* 50 mg PO SCH (17:37)
[2016-11-11 19:56] VITALS: BP 150/98
--- NOTE | 2016-11-12 08:14 | RAD ---
Indication: Evaluate for superior vena cava occlusion. Coronal T2, axial bright blood weighted images of the chest were obtained. Axial [id number] images were also obtained. The superior vena cava is prominent in size however no evidence of filling defect is noted to suggest superior vena cava syndrome. No evidence of filling defect is noted. The heart is enlarged without pericardial effusion. No pleural fluid is identified. No abnormal collaterals are identified. No pleural fluid is identified. IMPRESSION: No primary or secondary signs of superior vena cava syndrome. Cardiomegaly without evidence of pericardial effusion.
--- NOTE | 2016-11-13 04:52 | DS ---
CC: Dr. Osorio; Dr. Diogo Burns * DISCHARGE SUMMARY: DATE OF ADMISSION: 11/04/16 DATE OF DISCHARGE: 11/11/16 HISTORY: This 46-year-old woman presented with shortness of breath. I note that she continues to smoke cigarettes. She had some left-sided chest pain which actually was quite prominent throughout her hospital stay and that is pretty much a chronic problem at this time. The rest of the history is detailed in the admission note. The patient was treated for COPD exacerbation. She was seen in consultation by Dr. Foster. She had a stress test on 11/08/16, which showed findings suggestive of a [id number] sized area of ischemia in the anterior wall. Ejection fraction was estimated to be 33%. The patient had inpatient dialysis 3 times a week while she was here. On the day of discharge, she had another dialysis at which 5.6 L of excess fluid was removed. She seemed to feel a lot better and actually looked and acted better at the end of that dialysis. During her hospital stay, we also doubled her metoprolol dose which helped control her atrial fibrillation rate. This may have contributed to some extent to her improvement. Pain control was an ongoing issue. The pain was in the left chest which was really not clear what caused that. She has dilated veins throughout her left chest. MRI of the chest without contrast was done. There is no evidence of filling defect in the superior vena cava. There is no pericardial or pleural effusion. Abnormal collaterals were not identified. I suspect she may have some narrowed collaterals that could not be seen on MRI. FINAL DIAGNOSES: 1. Chronic obstructive pulmonary disease exacerbation. 2. Atrial fibrillation. 3. End-stage renal disease. 4. Left-sided chest pain. 5. Status post aortic valve replacement. DISCHARGE MEDICATIONS: 1. Metoprolol tartrate 50 mg b.i.d. 2. Nitroglycerin 0.4 mg every 5 minutes p.r.n. 3. Aspirin 81 mg daily. 4. Amlodipine 5 mg daily. 5. Atorvastatin 80 mg daily. 6. B complex with C 1 tablet daily. 7. Diphenhydramine 25 mg h.s. 8. Labetalol 200 mg b.i.d. 9. Gabapentin 100 mg t.i.d. 10. Diltiazem CD 240 mg daily. 11. Lidocaine and prilocaine as prescribed. 12. Montelukast 10 mg daily. 13. Vitamin E 400 units daily. 14. Tiotropium 1 capsule daily. 15. Kayexalate 15 g daily. 16. Cinacalcet 90 mg daily. 17. Apixaban 5 mg b.i.d. 18. Benzonatate 100 mg t.i.d. 19. Guaifenesin ER 1200 mg b.i.d. 20. Sevelamer 4800 mg t.i.d. [id number] #: [id number] [facility]
== END 2016-11-11 23:10 | disposition left against medical advice (07) | DRG 190 ==
LOC: ED 20:46 → MEDTELE 23:26 → OBSVTOIN 11-05 15:00
PROVIDERS: ADMIT Hospitalist; ATTEND Internal Medicine
PROC: 5A1D60Z (ICD-10-PCS; 2016-11-06)
PROC: B24BZZ4 Ultrasonography of Heart with Aorta, Transesophageal (ICD-10-PCS; principal; 2016-11-07 11:00)
DX: J44.1 Chronic obstructive pulmonary disease with (acute) exacerbation (principal); N18.6 End stage renal disease; I13.2 Hypertensive heart and chronic kidney disease with heart failure and with stage 5 chronic kidney disease, or end stage renal disease; I87.1 Compression of vein; I48.91 Unspecified atrial fibrillation; I07.1 Rheumatic tricuspid insufficiency; I50.32 Chronic diastolic (congestive) heart failure; Z95.2 Presence of prosthetic heart valve; D63.1 Anemia in chronic kidney disease; F17.210 Nicotine dependence, cigarettes, uncomplicated; I25.10 Atherosclerotic heart disease of native coronary artery without angina pectoris; E78.00 Pure hypercholesterolemia, unspecified; M19.90 Unspecified osteoarthritis, unspecified site; F41.9 Anxiety disorder, unspecified; F32.9 Major depressive disorder, single episode, unspecified; E78.5 Hyperlipidemia, unspecified; E66.9 Obesity, unspecified; M40.209 Unspecified kyphosis, site unspecified; R07.89 Other chest pain; R07.9 Chest pain, unspecified; Z99.2 Dependence on renal dialysis; I25.2 Old myocardial infarction; Z88.8 Allergy status to other drugs, medicaments and biological substances; Z88.0 Allergy status to penicillin; Z91.041 Radiographic dye allergy status; Z86.718 Personal history of other venous thrombosis and embolism; Z86.711 Personal history of pulmonary embolism; Z87.01 Personal history of pneumonia (recurrent); Z90.710 Acquired absence of both cervix and uterus; Z82.49 Family history of ischemic heart disease and other diseases of the circulatory system; Z83.3 Family history of diabetes mellitus; Z80.1 Family history of malignant neoplasm of trachea, bronchus and lung; Z95.1 Presence of aortocoronary bypass graft; Z68.30 Body mass index [BMI] 30.0-30.9, adult; Z79.01 Long term (current) use of anticoagulants; Z79.82 Long term (current) use of aspirin
CPT/HCPCS: 36415; 71010; 71020; 71550; 78452; 80048; 80053; 83605; 83880; 84484; 85025; 85027; 85060; 85610; 90935; 93005; 93017; 93306; 93312; 93325; 94640; 94760; 94762; 99406; A9270-GY; A9502; G0257; G0378; J0360; J0885; J1100; J1170; J1644; J1940; J2060; J2250; J2270; J2405; J2704; J2785; J2920; J2930; J3010

== ENCOUNTER 2016-12-31 10:43 | Inpatient (IN) | payer MEDICARE, MEDICAID ==
--- NOTE | 2016-12-31 11:33 | RAD ---
HISTORY: Chest pain COMPARISONS: November 06, 2016 VIEWS:1: Single frontal portable view of the chest at 11:10 AM FINDINGS: LINES AND TUBES: None. CARDIOMEDIASTINAL SILHOUETTE: The cardiac silhouette is enlarged. The cardiomediastinal silhouette is otherwise normal for portable technique. PLEURA: The costophrenic angles are sharp. No pleural abnormalities are noted. LUNG PARENCHYMA: There is a diffuse reticular pattern with indistinct pulmonary vessels. ABDOMEN: The upper abdomen is clear. There is no subphrenic gas. BONES AND SOFT TISSUES: The patient is status post median sternotomy. IMPRESSION: CARDIOMEGALY WITH PULMONARY INTERSTITIAL EDEMA.
[2016-12-31 12:51] LABS: Hematocrit 27 % (35-47); Mean Corpuscular HGB Conc 33 g/dl (31-36); Mean Corpuscular Hemoglobin 33 pg (27-31); Mean Corpuscular Volume 101 fL (80-97); Mean Platelet Volume 9 um3 (7.4-10.4); Red Cell Distribution Width 18 % (10.5-15); White Blood Count 6.3 10^3/ul (3.5-10.8)
[2016-12-31 13:05] LABS: Albumin 4.2 g/dL (3.2-5.2); BUN/Creatinine Ratio 4.8 (8-20); C Reactive Protein 1.3 mg/L (< 5.00); Calcium 9.2 mg/dL (8.6-10.3); EGFR African American 11.9 (>60); EGFR Non-African American 9.2 (>60); Globulin 2.5 g/dL (2-4); Magnesium 2.2 mg/dL (1.9-2.7); Phosphorus 3.2 mg/dL (2.5-5.0); Potassium 3.5 mmol/L (3.5-5.0); Total Bilirubin 0.7 mg/dL (0.2-1.0); Total Protein 6.7 g/dL (6.4-8.9)
[2016-12-31 13:12] LABS: Troponin I 0.07 ng/mL (<0.04)
[2016-12-31] MEDS ORDERED: Aspirin Low Dose CHEW TAB* 81 MG PO ONE (13:13)
[2016-12-31] MEDS ORDERED: Morphine INJ* 4 MG/ML 1 ML SYRINGE IV ONE (13:13)
[2016-12-31] MEDS ORDERED: Ondansetron INJ* 2 MG/ML VIAL IV ONE (13:13)
[2016-12-31] MEDS ORDERED: Levofloxacin 250 MG IVPREMX(*) 250 MG/50 ML BAG IVPB ONE (13:22)
[2016-12-31 13:33] LABS: TSH (Thyroid Stimulating Horm) 1.48 mcIU/mL (0.34-5.60)
[2016-12-31] MEDS ORDERED: hydrALAZINE IV* 20 MG/ML VIAL IV SLOW PU ONE (14:07)
[2016-12-31] MEDS ORDERED: methylPREDNISolone 125 MG* 2 ML VIAL IV ONE (14:07)
[2016-12-31] MEDS ORDERED: diPHENhydraMINE IV* 50 MG in NS 0.9% 50 ML* 50 ML IVPB PRN (14:08)
[2016-12-31] MEDS ORDERED: LORazepam TAB(*) 0.5 MG PO PRN (14:14)
[2016-12-31] MEDS ORDERED: Nitroglycerin TAB 0.4 MG* 0.4 MG TAB SL PRN (14:15)
[2016-12-31] MEDS ORDERED: Labetalol IV* 5 MG/ML 20 ML VIAL IV PUSH ONE (15:04)
--- NOTE | 2016-12-31 15:04 | ED ---
Kenneth Greenwood Benjamin, scribed for Jorge Luis Orantes MD on 12/31/16 at 1128 . HPI Chest Pain - HPI Summary HPI Summary: 46yo female BIBA for CP, green and yellow phlegm, and diffuse itchiness. Pt is a dialysis pt, and was receiving dialysis treatment. Around 2 hours out of the 4 hours into her tx, pt reported having CP and itchiness, which made Dr. Osorio send her to ED for evaluation. - History of Current Complaint Chief Complaint: EDChestPainROMI Time Seen by Provider: 12/31/16 10:52 Hx Obtained From: Patient Onset/Duration: Started Hours Ago, Still Present Timing: Constant, Lasting Hours Initial Severity: Mild Current Severity: Mild Pain Intensity: 4 Pain Scale Used: 0-10 Numeric Chest Pain Location: Mid Sternal Chest Pain Radiates: No Aggravating Factor(s): Nothing Alleviating Factor(s): Nothing Associated Signs and Symptoms: Positive: Chest Pain, Productive Cough - yellow- green phlegm, Other: - difufse itchiness - Additional Pertinent History Primary Care Physician: JOHN - Allergy/Home Medications Allergies/Adverse Reactions: Allergies Allergy/AdvReac Type Severity Reaction Status Date / Time Iodixanol [From Visipaque] Allergy Severe Airway Verified 10/26/16 14:17 Obstruction Lisinopril Allergy Severe Difficulty Verified 10/26/16 14:17 Breathing Penicillins Allergy Severe HIVES,SWELLING Verified 10/26/16 14:17 THROAT Cephalosporins Allergy not Verified 10/26/16 14:17 specified Home Medications: Home Medications ALPRAZolam TAB* [Xanax TAB*] 0.25 mg PO TID PRN 12/31/16 [History Confirmed 01/09] Aspirin EC Low Dose* [Ecotrin EC Low Dose 81 MG*] 81 mg PO DAILY 12/31/16 [ History Confirmed 12/31/16] B-Complex W/ C & Folic Acid [Dialyvite 800 0.8 mg] 1 tab PO DAILY 12/31/16 [ History Confirmed 12/31/16] Clonidine HCl [Clonidine HCl 0.3 MG] 0.3 mg PO BID 12/31/16 [History Confirmed 12/31/16] Labetalol TAB* [Trandate TAB*] 200 mg PO BID 12/31/16 [History Confirmed ] Metoprolol Tartrate [Lopressor] 50 mg PO BID 12/31/16 [History Confirmed ] Montelukast Sodium TAB* [Singulair TAB*] 10 mg PO DAILY 12/31/16 [History Confirmed 12/31/16] Oxycodone HCl [Oxycodone HCl ER 15 mg] 15 mg PO DAILY 12/31/16 [History Confirmed 12/31/16] Sevelamer TAB* [Renvela TAB*] 4,000 mg PO TID WITH MEALS 12/31/16 [History Confirmed 12/31/16] Tiotropium CAP.INH* [Spiriva CAP.INH*] 1 cap.inh INH DAILY 12/31/16 [History Confirmed 12/31/16] PMH/Surg Hx/FS Hx/Imm Hx Endocrine/Hematology History: Reports: Hx Anticoagulant Therapy, Hx Blood Transfusions, Hx Unexplained Bleeding Denies: Hx Blood Disorders, Hx Bone Marrow Disease, Hx Diabetes, Hx Systemic Lupus Erythematosus, Hx Sickle Cell Disease, Hx Thyroid Disease, Hx Anemia, Other Endocrine/Hematological Disorders Cardiovascular History: Reports: Hx Angina, Hx Cardiomegaly, Hx Congestive Heart Failure, Hx Coronary Artery Disease, Hx Deep Vein Thrombosis, Hx Hypercholesterolemia, Hx Hypertension, Hx Myocardial Infarction, Hx Valvular Heart Disease, Other Cardiovascular Problems/Disorders - 2 artificial heart valves; Hx of endocarditis Denies: Hx Aneurysm, Hx Angioplasty, Hx Auto Implanted Cardiovert Defib, Hx Cardiac Arrest, Hx Congenital Heart Disease, Hx Embolism, Hx Hypotension, Hx Pacemaker/ICD, Hx Peripheral Vascular Disease, Hx Rheumatic Fever, Hx Syncope Respiratory History: Reports: Hx Asthma, Hx Chronic Obstructive Pulmonary Disease (COPD), Hx Pneumonia, Hx Pulmonary Edema, Hx Pulmonary Embolism, Other Respiratory Problems/Disorders - PULMONARY EDEMA Denies: Hx Chronic Bronchitis, Hx Cystic Fibrosis, Hx Lung Cancer, Hx Pleural Effusion, Hx Seasonal Allergies, Hx Sleep Apnea History: Reports: Hx Chronic Renal Failure, Hx Dialysis - ESRD, [place] ON // FRI, Hx Renal Disease Denies: Hx Benign Prostatic Hyperplasia, Hx Kidney Infection, Hx Kidney Stones, Other Problems/Disorders Musculoskeletal History: Reports: Hx Arthritis Denies: Hx Back Problems, Hx Bursitis, Hx Congenital Bone Abnormalities, Hx Fibromyalgia, Hx Gout, Hx Orthopedic Injury, Hx Osteoporosis, Hx Scoliosis, Hx Tendonitis, Other Musculoskeletal History Sensory History: Denies: Hx Contacts or Glasses, Hx Hearing Aid Opthamlomology History: Denies: Hx Contacts or Glasses Neurological History: Reports: Hx Headaches Denies: Hx Seizures Psychiatric History: Reports: Hx Anxiety, Hx Depression Denies: Hx Attention Deficit Hyperactivity Disorder, Hx Eating Disorder, Hx Panic Disorder, Hx Post Traumatic Stress Disorder, Hx Inpatient Treatment, Hx Community Mental Health Tx, Hx Schizophrenia, Hx Bipolar Disorder, Hx Suicide Attempt, Hx of Violent Episodes Against Others, Hx Substance Abuse, Other Psychiatric Issues/Disorders - Surgical History Surgery Procedure, Year, and Place: bilateral knees, dialysis tube placed in abdomen( out), fistula tube placement in arm for dialysis Lt arm has been revised. waiting out ok to use [id number], open heart valve replacement, hysterectomy, stents Hx Anesthesia Reactions: No - Immunization History Date of Tetanus Vaccine: Unk Date of Influenza Vaccine: Unk Infectious Disease History: Reports: Hx of Known/Suspected MRSA - Negative Denies: Hx Clostridium Difficile, Hx Hepatitis, Hx Human Immunodeficiency Virus (HIV), Hx Shingles, Hx Tuberculosis, Hx Known/Suspected VRE, Traveled Outside the [place] in Last 30 Days - Family History Known Family History: Positive: Hypertension - Mother, Diabetes - Mother, Other - negative FHx for malignant hyperthermia and anesthesia rxn. Family History: Father -- Lung CA - Social History Occupation: Disabled Lives: Alone Alcohol Use: None Hx Substance Use: No Substance Use Type: Reports: None Hx Tobacco Use: Yes Smoking Status (MU): Former Smoker Type: Cigarettes Amount Used/How Often: 1/2 PPD Length of Time of Smoking/Using Tobacco: 15 Have You Smoked in the Last Year: Yes Review of Systems Constitutional: Negative Eyes: Negative ENT: Negative Positive: Chest Pain Respiratory: Negative Positive: Cough - green yellow phlegm Gastrointestinal: Negative Genitourinary: Negative Musculoskeletal: Negative Skin: Other - itching diffusely Neurological: Negative Psychological: Normal All Other Systems Reviewed And Are Negative: Yes Physical Exam Triage Information Reviewed: Yes Vital Signs On Initial Exam: Initial Vitals Temp Pulse Resp BP Pulse Ox 97.5 F 78 20 210/110 98 12/31/16 11:03 12/31/16 11:03 12/31/16 11:03 12/31/16 11:03 12/31/16 11:03 Vital Signs Reviewed: Yes Appearance: Positive: Well-Appearing, Well-Nourished, Pain Distress - moderate Skin: Positive: Warm, Skin Color Reflects Adequate Perfusion, Dry Head/Face: Positive: Normal Head/Face Inspection Eyes: Positive: Normal ENT: Positive: Normal ENT inspection Neck: Positive: Supple, Nontender Respiratory/Lung Sounds: Positive: Breath Sounds Present, Rales - at the bases Cardiovascular: Positive: Murmur Abdomen Description: Positive: Nontender, Soft Bowel Sounds: Positive: Present Musculoskeletal: Positive: Edema Left - mild bileteral pedeal edema, Edema Right Neurological: Positive: Sensory/Motor Intact, Alert, Oriented to Person Place, Time, CN Intact II-III Psychiatric: Positive: Affect/Mood Appropriate Diagnostics - Vital Signs Vital Signs Temp Pulse Resp BP Pulse Ox 12/31/16 11:03 97.5 F 78 20 210/110 98 - Laboratory Lab Results: Lab Results 12/31/16 12/31/16 12/31/16 Range/Units 12:30 12:30 12:30 WBC 6.3 (3.5-10.8) 10^3/ul RBC 2.70 L (4.0-5.4) 10^6/ul Hgb 9.0 L (12.0-16.0) g/dl Hct 27 L (35-47) % MCV 101 H (80-97) fL MCH 33 H (27-31) pg MCHC 33 (31-36) g/dl RDW 18 H (10.5-15) % Plt Count 130 L (150-450) 10^3/ul MPV 9 (7.4-10.4) um3 Neut % (Auto) 69.9 (38-83) % Lymph % (Auto) 14.6 L (25-47) % Logan % (Auto) 12.9 H (1-9) % Eos % (Auto) 1.6 (0-6) % Baso % (Auto) 1.0 (0-2) % Absolute Neuts (auto) 4.4 (1.5-7.7) 10^3/ul Absolute Lymphs (auto) 0.9 L (1.0-4.8) 10^3/ul Absolute Monos (auto) 0.8 (0-0.8) 10^3/ul Absolute Eos (auto) 0.1 (0-0.6) 10^3/ul Absolute Basos (auto) 0.1 (0-0.2) 10^3/ul Absolute Nucleated RBC 0 10^3/ul Nucleated RBC % 0 INR (Anticoag Therapy) 0.96 (0.89-1.11) APTT 32.5 (26.0-36.3) seconds D-Dimer, Quantitative 383 H (Less Than 230) ng/mL Sodium 135 (133-145) mmol/L Potassium 3.5 (3.5-5.0) mmol/L Chloride 91 L (101-111) mmol/L Carbon Dioxide 38 H (22-32) mmol/L Anion Gap 6 (2-11) mmol/L BUN 24 (6-24) mg/dL Creatinine 5.04 H (0.51-0.95) mg/dL Est GFR ( Amer) 11.9 (>60) Est GFR (Non-Af Amer) 9.2 (>60) BUN/Creatinine Ratio 4.8 L (8-20) Glucose 80 (70-100) mg/dL Lactic Acid (0.5-2.0) mmol/L Calcium 9.2 (8.6-10.3) mg/dL Phosphorus 3.2 (2.5-5.0) mg/dL Magnesium 2.2 (1.9-2.7) mg/dL Total Bilirubin 0.70 (0.2-1.0) mg/dL AST 28 (13-39) U/L ALT 21 (7-52) U/L Alkaline Phosphatase 87 (34-104) U/L Total Creatine Kinase 60 (10-223) U/L CK-MB (CK-2) 2.0 (0.6-6.3) ng/mL Troponin I 0.07 H* (<0.04) ng/mL C-Reactive Protein 1.30 (< 5.00) mg/L B-Natriuretic Peptide ( - 100) pg/mL Total Protein 6.7 (6.4-8.9) g/dL Albumin 4.2 (3.2-5.2) g/dL Globulin 2.5 (2-4) g/dL Albumin/Globulin Ratio 1.7 (1-3) Lipase 99 H (11.0-82.0) U/L TSH 1.48 (0.34-5.60) mcIU/mL 08/08/17 08/08/17 Range/Units 12:30 12:30 WBC (3.5-10.8) 10^3/ul RBC (4.0-5.4) 10^6/ul Hgb (12.0-16.0) g/dl Hct (35-47) % MCV (80-97) fL MCH (27-31) pg MCHC (31-36) g/dl RDW (10.5-15) % Plt Count (150-450) 10^3/ul MPV (7.4-10.4) um3 Neut % (Auto) (38-83) % Lymph % (Auto) (25-47) % Logan % (Auto) (1-9) % Eos % (Auto) (0-6) % Baso % (Auto) (0-2) % Absolute Neuts (auto) (1.5-7.7) 10^3/ul Absolute Lymphs (auto) (1.0-4.8) 10^3/ul Absolute Monos (auto) (0-0.8) 10^3/ul Absolute Eos (auto) (0-0.6) 10^3/ul Absolute Basos (auto) (0-0.2) 10^3/ul Absolute Nucleated RBC 10^3/ul Nucleated RBC % INR (Anticoag Therapy) (0.89-1.11) APTT (26.0-36.3) seconds D-Dimer, Quantitative (Less Than 230) ng/mL Sodium (133-145) mmol/L Potassium (3.5-5.0) mmol/L Chloride (101-111) mmol/L Carbon Dioxide (22-32) mmol/L Anion Gap (2-11) mmol/L BUN (6-24) mg/dL Creatinine (0.51-0.95) mg/dL Est GFR ( Amer) (>60) Est GFR (Non-Af Amer) (>60) BUN/Creatinine Ratio (8-20) Glucose (70-100) mg/dL Lactic Acid 0.6 (0.5-2.0) mmol/L Calcium (8.6-10.3) mg/dL Phosphorus (2.5-5.0) mg/dL Magnesium (1.9-2.7) mg/dL Total Bilirubin (0.2-1.0) mg/dL AST (13-39) U/L ALT (7-52) U/L Alkaline Phosphatase (34-104) U/L Total Creatine Kinase (10-223) U/L CK-MB (CK-2) (0.6-6.3) ng/mL Troponin I (<0.04) ng/mL C-Reactive Protein (< 5.00) mg/L B-Natriuretic Peptide 4196 H ( - 100) pg/mL Total Protein (6.4-8.9) g/dL Albumin (3.2-5.2) g/dL Globulin (2-4) g/dL Albumin/Globulin Ratio (1-3) Lipase (11.0-82.0) U/L TSH (0.34-5.60) mcIU/mL Result Diagrams: 12/31/16 12:30 12/31/16 12:30 Lab Statement: Any lab studies that have been ordered have been reviewed, and results considered in the medical decision making process. - Radiology CXR Xray Interpretation: Positive (See Comments) - IMPRESSION: CARDIOMEGALY WITH PULMONARY INTERSTITIAL EDEMA. Radiology Interpretation Completed By: Radiologist - EKG 1118. Cardiac Rate: NL - 68bpm EKG Rhythm: Atrial Fibrillation EKG Interpretation: LVH 1158. Cardiac Rate: NL - 80bpm EKG Rhythm: Atrial Fibrillation ST Segment: Non-Specific - non-specific T wave abnormalities in inferior and lateral leads Chest Pain Course/Dx - Course Course Of Treatment: Reviewed pts medication and allergy lists. Discussed with Dr. Osorio (pt's Professor Of Education) at 13:20. ADMIT HOSPITALIST STABLE. - Diagnoses Provider Diagnoses: Chest pain, Bronchitis, Renal failure (ARF), acute on chronic Discharge - Discharge Plan Condition: Stable Disposition: ADMITTED TO [facility] documentation as recorded by the Kenneth sosa Benjamin accurately reflects the service I personally performed and the decisions made by , Jorge Luis Orantes MD.
[2016-12-31] MEDS: Sevelamer TAB* 800 MG PO SCH (16:30)
[2016-12-31] MEDS: Morphine INJ* 4 MG/ML 1 ML SYRINGE IV PRN ×2 (16:31→21:21)
[2016-12-31] MEDS ORDERED: Labetalol TAB* 200 MG ONE (18:42)
[2016-12-31] MEDS ORDERED: diPHENhydraMINE IV* 50 MG/ML 1 ml VIAL (BENADRYL) ONE (20:21)
--- NOTE | 2016-12-31 20:21 | HP ---
CC: Dr. Osorio * ADMISSION HISTORY AND PHYSICAL: DATE OF ADMISSION: 12/31/16 PRIMARY CARE PROVIDER: Dr. Osorio. HEALTHCARE PROXY: Daughter. CODE STATUS: Full. SOURCE OF INFORMATION: History obtained from interview with the patient, review of the past medical records. RELIABILITY: Reliability from the patient is fair, from medical records is excellent. CHIEF COMPLAINT: Cough and shortness of breath. HISTORY OF PRESENT ILLNESS: This is a 46-year-old female with complicated past medical history including combined systolic and diastolic heart failure; end- stage renal disease, on hemodialysis; history of DVT and PE, complicated by alveolar hemorrhage; history of AVR and MVR; COPD; CAD; atrial fibrillation, complicated by RVR; TAVR in May 2016; last hospitalized to [facility] on 11/04/16 with increasing shortness of breath, unclear etiology with multiple medications or with medication changes targeted at improving her cardiac output/decreased resistance, known small to moderate area of ischemia on her anterior wall, who over the last 4 weeks has noted cough associated with "bad cold" and increasing sputum, volume and change in color to green. She has noted a worsening chest pain with coughing associated with increasing shortness of breath. At the time of her discharge in October, she noticed she was able to walk to the bathroom, now she is becoming short of breath at rest or just with moving her body for at least the last 2 months. She has got associated chills without fevers, positive for rigors as well. The patient denies any sick contacts, but has had rhinorrhea and sneezing for the last 2 weeks. She notes that she has to hold her chest when coughing secondary to the exacerbation of the chest pain and now it is worse with "extra pressure" from coughing. She only takes oxycodone 50 mg daily, although has been achieving little relief. She notes decreasing sleep as well as p.o. intake and that this morning, she fell to the floor with a coughing fit. She denies any changes in her medications except as made on her last hospital stay. She denies missing any doses of Eliquis. She does endorse 2 weeks of pruritus, it is generalized worse in her back and her legs. She has been taking Benadryl without any help. She notes her last missed hemodialysis 2 weeks prior. She has had hemodialysis today, at which time they removed 3.5 L of fluid; however, secondary to continued coughing associated with chest pain, she was referred to the emergency room. When seen in the emergency room, the patient is tearful secondary to advancing condition including shortness of breath and chest pain when coughing in addition to pruritus. She is future oriented, repeatedly indicating she is a fighter, and she wants to see her 3-year-old niece grow up and graduate high school. Her pain is improved with morphine. PAST MEDICAL HISTORY: Includes: 1. Hypertension. 2. COPD. 3. Obesity. 4. End-stage renal disease, on dialysis. 5. Marked left ventricular hypertrophy. 6. Pulmonary hemorrhage in April 2016, in the setting of anticoagulation. 7. Atrial fibrillation. 8. Systolic heart failure. 9. Anemia. 10. History of DVT and PE. 11. Coronary bypass in 2013 with aortic valve replacement, and unclear but possible mitral valve repair. 12. History of hysterectomy. 13. Knee arthroscopies. 14. Coronary bypass in 2013 with aortic valve replacement at [facility]. 15. Recurrent TAVR in May 2013, secondary to aortic stenosis. 16. Anemia of chronic disease. 17. Depression 18. Anxiety. HOME MEDICATIONS: Include: 1. Labetalol 200 mg twice daily. 2. Metoprolol tartrate 50 mg twice daily. 3. Montelukast 10 mg daily. 4. Nitroglycerin 0.4 mg every 5 minutes as needed. 5. Sensipar 90 mg daily. 6. Lidocaine and prilocaine topical every other day. 7. Alprazolam 0.25 mg 3 times a day as needed. 8. Vitamin E 400 units twice daily. 9. Eliquis 5 mg twice daily. 10. Tiotropium 1 cap inhaled daily. 11. Diltiazem CD 240 mg daily. 12. Clonidine 0.2 mg twice daily. 13. Kayexalate 50 mg daily. 14. B Complex with folate 1 tab daily. 15. Renvela 4000 mg 3 times a day with meals. 16. Oxycodone ER 15 mg daily. 17. Benadryl 25 mg daily. 18. Aspirin 81 mg daily. 19. Amlodipine 5 mg daily. ALLERGIES: To IODIXANOL, LISINOPRIL, PENICILLINS, and CEPHALOSPORINS. FAMILY HISTORY: The patient is unclear of her family history, unable to obtain. SOCIAL HISTORY: Still smoking a half a pack a day. Denies alcohol or other drugs. She lives with her daughter. She is currently on disability. She is full code. REVIEW OF SYSTEMS: As per HPI, otherwise all other systems are negative. PHYSICAL EXAMINATION GENERAL: She is tearful, sitting up in bed, interactive, pleasant, no apparent respiratory distress. VITALS: In the emergency room, systolics from 121 to 210 over diastolics 102 to 110, heart rate 70 through to 80, respiratory rate 18, 98% on room air, T- max is 98.4. HEENT: Her oropharynx is clear. She has dry mucous membranes. Sclerae are injected, but anicteric. NECK: She has elevated JVD. No cervical or supraclavicular lymphadenopathy. LUNGS: Her lungs have fine rales in the left base up one half. HEART: Regular rate and rhythm. ABDOMEN: Soft, nontender, nondistended. EXTREMITIES: Warm and well perfused without clubbing, cyanosis or edema. NEURO: She is alert and oriented x3 with apparent depression, although no agitation or anxiety. DIAGNOSTIC STUDIES/LAB DATA: Notable labs reviewed. Hemoglobin 9, MCV of 101 , white blood cell count of 6.3, bicarb is 38, BUN is 24, creatinine 5.0. Troponin I is 0.02. BNP 4196. Chest x-ray, impression: Cardiomegaly with pulmonary interstitial edema. EKG: Atrial fibrillation, normal limited axis, slightly prolonged QTC 486, normal R-wave progression, no ST or T-wave changes. ASSESSMENT AND PLAN: This is a 46-year-old female with a complicated past medical history including end-stage renal disease, advanced heart failure, chronic obstructive pulmonary disease with other suspected lung damage in the setting of the past pulmonary hemorrhage, multiple valvular disorders, status post MVR and AVR, who is presenting with cough associated with chest pain and increased sputum over the last 4 weeks. 1. Shortness of breath: The patient has been struggling with increasing shortness of breath, now for many months. Much attention was paid to this symptom at the last hospital stay without elucidation of a reversible etiology. I believe her shortness of breath is still a combination of multiple contributing factors including worsening heart failure, underlying lung disease in the setting of continued tobacco use and her renal failure. At this point, I suspect in the setting of cough and increased sputum quantity and change in color, chronic obstructive pulmonary disease exacerbation is possible. She will be started on methylprednisolone today and continue tomorrow. This may also assist in treatment of her pruritus. She is grossly hypertensive here and her hypertension is likely contributing to worsening shortness of breath today, although unlikely to account for her blood pressure over the last 2 months. 2. Chest pain: This is low suspicion for ischemic etiology at this point, although she has had small area of reversible ischemia in the past on stress test. Her chest pain is reproducible and only associated with coughing. We will cycle another troponin and target cough suppression with codeine. Please see Dr. Foster's full consultation from 11/09/16 for a detailed evaluation and outline of her past cardiac history. 3. Systolic heart failure: Acute, I suspect partly contributing based on her chest x-ray and incomplete dialysis. Dr. Orantes has spoken with Dr. Osorio and the plan is for Ms. Joseph to be dialyzed again tomorrow. 4. Chronic obstructive pulmonary disease exacerbation: As indicated above, continue home treatments and add steroids. 5. Pruritus: Unclear etiology of increased pruritus, possibly less effective dialysis; however, she notably has good BUN clearance. We will increase to attempt Benadryl 50 mg IV for some relief in addition to steroids. 6. Goals of care: I think Ms. Joseph has advancing underlying multisystem organ failure including her lungs, kidneys and heart, resulting in symptoms that are both unacceptable to the patient as well as severely debilitating. We have on several attempts now tried to discuss what her goals of care would be, and whether she would prefer a partial transition to palliative approach versus continued suffering at home. She has met with our chapel in the past with some success in her appreciation of these problems; however, on conversation today, it is clear that she has had little retention. Goals of care at this point are focused on surviving until her 3-year-old grand-daughter graduates from high school ostensibly in 15 years. I think ongoing discussions about the quality of life she expects and what can be expected will be important in her care during this hospital stay and again in the future. [id number]/[facility] #: [id number] SHI
[2016-12-31] MEDS: Metoprolol Tartrate TAB* 50 mg PO SCH (21:22)
[2016-12-31] MEDS: Labetalol TAB* 200 MG PO SCH (21:22)
[2016-12-31] MEDS: Ondansetron INJ* 2 MG/ML VIAL IV PRN (21:22)
[2016-12-31] MEDS: cloNIDine TAB* 0.1 MG PO SCH (21:22)
[2016-12-31] MEDS: Apixaban* 5 MG TAB PO SCH (21:49)
[2017-01-01] MEDS: Ondansetron INJ* 2 MG/ML VIAL IV PRN (01:41)
[2017-01-01] MEDS: Morphine INJ* 4 MG/ML 1 ML SYRINGE IV PRN ×4 (01:42→19:44)
[2017-01-01] MEDS: Codeine TAB* 15 MG PO PRN (06:25)
[2017-01-01] MEDS: Sevelamer TAB* 800 MG PO SCH ×3 (08:08→17:43)
[2017-01-01] MEDS: Apixaban* 5 MG TAB PO SCH ×2 (08:09→19:56)
[2017-01-01] MEDS: Cinacalcet TAB* 30 MG PO SCH (08:09)
[2017-01-01] MEDS: methylPREDNISolone SOD 40 MG* 1 ML VIAL IV SCH ×2 (08:10→17:43)
[2017-01-01] MEDS: Diltiazem CD CAP* 240 MG PO SCH (08:10)
[2017-01-01] MEDS: Montelukast Sodium TAB* 10 MG PO SCH (08:12)
[2017-01-01] MEDS: Metoprolol Tartrate TAB* 50 mg PO SCH ×2 (08:12→19:55)
[2017-01-01] MEDS: cloNIDine TAB* 0.1 MG PO SCH ×2 (08:12→19:54)
[2017-01-01] MEDS: Labetalol TAB* 200 MG PO SCH ×2 (08:12→19:55)
[2017-01-01] MEDS: amLODIPine TAB* 5 MG PO SCH (08:12)
[2017-01-01] MEDS: Tiotropium CAP.INH* CAP.INH/18 MCG INH SCH (08:21)
[2017-01-01] MEDS ORDERED: Albuterol HFA INHALER* 8 gm MDI INH PRN (08:38)
[2017-01-01] MEDS ORDERED: Spiriva Inhaler DEVICE* 1 EACH DEVICE INH ONE (09:00)
[2017-01-01] MEDS ORDERED: Spiriva Inhaler DEVICE* 1 EACH DEVICE INH SCH ×2 (09:00→15:00)
[2017-01-01] MEDS: Aspirin EC Low Dose* 81 MG TAB.EC PO SCH (09:24)
--- NOTE | 2017-01-01 12:27 | PN ---
Subjective Date of Service: 01/01/17 Interval History: Ms. Joseph is a 46 yo female with a complicated PMH that includes COPD, combined systolic and diastolic HF, ESRD on HD, hx of DVT/PE with alveolar hemorrhage; AVR and MVR, CAD, and atrial fibrillation who was recently admitted in October 2016 with concern for increased dyspnea. Patient had medication adjustments made with the goal at improving her cardiac output. Since then, Juany reports that her breathing has gotten progressively worse. She has not wanted to come into the hospital and has struggled at home. She reports not being able to tolerate lying flat and has progressed from sleeping in a chair and recliner to sitting upright at the kitchen table and resting with her head on the table. She reports poor sleep and extreme fatigue. She is still smoking, secondary to anxiety, and admits to probably smoking about "a pack a day" though she has tried to quit. She reports a productive cough, runny nose, earaches, sore throat , citing that she has had "a bad cold for 2 months." She reports that being outside makes her more itchy and makes her breathing worse. She stays inside mostly and only goes out in the evenings, when she tries to work in her garden. She also reports unintentional weight loss and notes that she has had difficulty with swallowing food, due to it "getting stuck." At one point, her son had to perform the Heimlich because she could not manage the food. She has been drinking excess fluids to account for her poor PO intake and to help food get down. Additionally, Juany reports persistent itching, stating that she has been taking 1-2 tabs of Benadryl (25-50 mg) with no effect. At one point, she became very tearful, stating she is embarrassed because she feels as if she has bugs crawling under her skin. The feeling is so intense that she has scratched her skin open and created wounds. Her children have shown her with magnifying glasses that there is nothing there, but she states it does not help the sensation. Her children have expressed concern for mental issues, which is very upsetting for her. In terms of medication adherence, she states she has been taking her medications as prescribed and reports missing HD "maybe 2 weeks ago." She was scheduled for a pulmonology visit yesterday but missed it due to being admitted. She feels like she still has motivation to fight and is not ready to give up yet. She reports using her albuterol inhaler frequently throughout the day and has asked for one here in the hospital. She states she has never been screened for sleep apnea (reporting "I've been avoiding that test for awhile"). She would like to speak to pulmonology to explore more options. We discussed nutrition consult and a swallow evaluation. In regards to her pruritis and formication, we discussed continued use of antipruritics and how this could be a manifestation of uremia from dialysis. Juany agrees with the current plan of care and would like to pursue these avenues prior to discussing palliative care. She is currently in dialysis, is often very tearful and reflective. She reports feeling short of breath while speaking and has to stop for breaks every few minutes. Currently denies CP but does endorse some pruritis and spots of blood on the tissue when she blows her nose. Family History: Unchanged from Admission Social History: Unchanged from Admission Past Medical History: Unchanged from Admission Objective Active Medications: Albuterol (Ventolin Hfa Inhaler*) 2 puff INH Q4H PRN PRN Reason: SOB/WHEEZING Last Admin: 01/01/17 09:53 Dose: 2 puff Amlodipine Besylate (Norvasc Tab*) 5 mg PO DAILY [facility] Last Admin: 01/01/17 08:12 Dose: 5 mg Apixaban (Eliquis*) 5 mg PO BID [facility] Last Admin: 01/01/17 08:09 Dose: 5 mg Aspirin (Aspirin Ec Low Dose*) 81 mg PO DAILY [facility] Last Admin: 01/01/17 09:24 Dose: 81 mg Cinacalcet (Sensipar Tab*) 90 mg PO DAILY [facility] Last Admin: 01/01/17 08:09 Dose: 90 mg Clonidine HCl (Catapres Tab*) 0.3 mg PO BID [facility] Last Admin: 01/01/17 08:12 Dose: 0.3 mg Codeine Sulfate (Codeine Tab*) 15 mg PO Q6H PRN PRN Reason: COUGH Last Admin: 01/01/17 06:25 Dose: 15 mg Diltiazem HCl (Cardizem Cd Cap*) 240 mg PO DAILY [facility] Last Admin: 01/01/17 08:10 Dose: 240 mg Heparin Sodium (Porcine) (Heparin Dialysis Only(*)) 5,000 units DIALYSIS ONCE ONE Stop: 01/01/17 13:01 Diphenhydramine HCl 50 mg/ (Sodium Chloride) 51 mls @ 102 mls/hr IVPB Q6H PRN PRN Reason: PRURITIS Labetalol HCl (Trandate Tab*) 200 mg PO BID [facility] Last Admin: 01/01/17 08:12 Dose: 200 mg Lorazepam (Ativan Tab(*)) 0.5 mg PO Q6H PRN PRN Reason: ANXIETY Methylprednisolone Sodium Succinate (Solu-Medrol 40 Mg) 40 mg IV Q8H [facility] Last Admin: 01/01/17 08:10 Dose: 40 mg Metoprolol Tartrate (Lopressor Tab*) 50 mg PO BID [facility] Last Admin: 01/01/17 08:12 Dose: 50 mg Montelukast Sodium (Singulair Tab*) 10 mg PO DAILY [facility] Last Admin: 01/01/17 08:12 Dose: 10 mg Morphine Sulfate (Morphine Inj (Syringe)*) 4 mg IV Q4H PRN PRN Reason: PAIN Last Admin: 01/01/17 08:11 Dose: 4 mg Nitroglycerin (Nitroglycerin Tab 0.4 Mg*) 0.4 mg SL Q5M PRN PRN Reason: ANGINA Ondansetron HCl (Zofran Inj*) 4 mg IV Q4H PRN PRN Reason: NAUSEA/VOMITING Last Admin: 01/01/17 01:41 Dose: 4 mg Sevelamer Carbonate (Renvela Tab*) 4,000 mg PO TID WITH MEALS [facility] Last Admin: 01/01/17 08:08 Dose: 4,000 mg Tiotropium [place] (Spiriva Cap.Inh*) 1 cap INH DAILY [facility] Last Admin: 01/01/17 08:21 Dose: 1 cap Vital Signs 12/31/16 12/31/16 12/31/16 14:30 14:32 14:55 Temperature Pulse Rate 87 Respiratory 15 20 19 Rate Blood Pressure 211/178 214/188 (mmHg) O2 Sat by Pulse 99 Oximetry 12/31/16 12/31/16 12/31/16 15:00 15:26 16:00 Temperature Pulse Rate 82 82 95 Respiratory 21 20 Rate Blood Pressure 219/180 208/184 108/58 (mmHg) O2 Sat by Pulse 100 96 89 Oximetry 12/31/16 12/31/16 12/31/16 16:06 16:30 16:31 Temperature 99 F Pulse Rate 89 Respiratory 22 22 Rate Blood Pressure 181/108 85/54 (mmHg) O2 Sat by Pulse 100 Oximetry 12/31/16 12/31/16 12/31/16 17:14 17:30 17:31 Temperature Pulse Rate 89 97 Respiratory 14 16 16 Rate Blood Pressure 119/76 129/80 (mmHg) O2 Sat by Pulse 96 96 Oximetry 12/31/16 12/31/16 12/31/16 18:00 18:33 20:23 Temperature 98.1 F Pulse Rate 96 114 Respiratory 14 22 Rate Blood Pressure 130/69 190/140 178/128 (mmHg) O2 Sat by Pulse 96 98 Oximetry 12/31/16 12/31/16 12/31/16 21:21 21:23 21:30 Temperature Pulse Rate Respiratory 18 18 18 Rate Blood Pressure (mmHg) O2 Sat by Pulse Oximetry 12/31/16 12/31/16 01/01/17 22:21 22:23 00:14 Temperature 98.9 F Pulse Rate 98 Respiratory 16 18 20 Rate Blood Pressure 160/105 (mmHg) O2 Sat by Pulse 98 Oximetry 01/01/17 01/01/17 01/01/17 01:39 01:42 02:42 Temperature Pulse Rate 89 Respiratory 20 20 18 Rate Blood Pressure 160/100 (mmHg) O2 Sat by Pulse 95 Oximetry 01/01/17 01/01/17 01/01/17 04:14 06:25 08:00 Temperature 98.5 F Pulse Rate 109 Respiratory 16 20 16 Rate Blood Pressure 177/108 (mmHg) O2 Sat by Pulse 97 Oximetry 01/01/17 01/01/17 01/01/17 08:11 08:13 09:56 Temperature Pulse Rate 124 107 Respiratory 20 16 Rate Blood Pressure 183/121 (mmHg) O2 Sat by Pulse 94 Oximetry Oxygen Devices in Use Now: Nasal Cannula Appearance: Chronically ill appearing female, tearful, dyspneic with conversation Eyes: PERRLA, - - injected sclera Ears/Nose/Mouth/Throat: Mucous Membranes Moist Neck: NL Appearance and Movements; NL JVP Respiratory: Symmetrical Chest Expansion and Respiratory Effort, - - fair aeration, bibasilar rales Cardiovascular: RRR - 3/6 systolic murmur Abdominal: NL Sounds; No Tenderness; No Distention Extremities: No Edema Skin: - - poor skin turgor Neurological: Alert and Oriented x 3 Lines/Tubes/Other Access: Clean, Dry and Intact Peripheral IV Nutrition: Taking PO's Result Diagrams: 12/31/16 12:30 12/31/16 12:30 Additional Lab and Data: Lab Results 12/31/16 12/31/16 12/31/16 Range/Units 12:30 12:30 12:30 WBC 6.3 (3.5-10.8) 10^3/ul RBC 2.70 L (4.0-5.4) 10^6/ul Hgb 9.0 L (12.0-16.0) g/dl Hct 27 L (35-47) % MCV 101 H (80-97) fL MCH 33 H (27-31) pg MCHC 33 (31-36) g/dl RDW 18 H (10.5-15) % Plt Count 130 L (150-450) 10^3/ul MPV 9 (7.4-10.4) um3 Neut % (Auto) 69.9 (38-83) % Lymph % (Auto) 14.6 L (25-47) % Kleberg % (Auto) 12.9 H (1-9) % Eos % (Auto) 1.6 (0-6) % Baso % (Auto) 1.0 (0-2) % Absolute Neuts (auto) 4.4 (1.5-7.7) 10^3/ul Absolute Lymphs (auto) 0.9 L (1.0-4.8) 10^3/ul Absolute Monos (auto) 0.8 (0-0.8) 10^3/ul Absolute Eos (auto) 0.1 (0-0.6) 10^3/ul Absolute Basos (auto) 0.1 (0-0.2) 10^3/ul Absolute Nucleated RBC 0 10^3/ul Nucleated RBC % 0 INR (Anticoag Therapy) 0.96 (0.89-1.11) APTT 32.5 (26.0-36.3) seconds D-Dimer, Quantitative 383 H (Less Than 230) ng/mL Sodium 135 (133-145) mmol/L Potassium 3.5 (3.5-5.0) mmol/L Chloride 91 L (101-111) mmol/L Carbon Dioxide 38 H (22-32) mmol/L Anion Gap 6 (2-11) mmol/L BUN 24 (6-24) mg/dL Creatinine 5.04 H (0.51-0.95) mg/dL Est GFR ( Amer) 11.9 (>60) Est GFR (Non-Af Amer) 9.2 (>60) BUN/Creatinine Ratio 4.8 L (8-20) Glucose 80 (70-100) mg/dL Lactic Acid (0.5-2.0) mmol/L Calcium 9.2 (8.6-10.3) mg/dL Phosphorus 3.2 (2.5-5.0) mg/dL Magnesium 2.2 (1.9-2.7) mg/dL Total Bilirubin 0.70 (0.2-1.0) mg/dL AST 28 (13-39) U/L ALT 21 (7-52) U/L Alkaline Phosphatase 87 (34-104) U/L Total Creatine Kinase 60 (10-223) U/L CK-MB (CK-2) 2.0 (0.6-6.3) ng/mL Troponin I 0.07 H* (<0.04) ng/mL C-Reactive Protein 1.30 (< 5.00) mg/L B-Natriuretic Peptide ( - 100) pg/mL Total Protein 6.7 (6.4-8.9) g/dL Albumin 4.2 (3.2-5.2) g/dL Globulin 2.5 (2-4) g/dL Albumin/Globulin Ratio 1.7 (1-3) Lipase 99 H (11.0-82.0) U/L TSH 1.48 (0.34-5.60) mcIU/mL 12/31/16 12/31/16 Range/Units 12:30 12:30 WBC (3.5-10.8) 10^3/ul RBC (4.0-5.4) 10^6/ul Hgb (12.0-16.0) g/dl Hct (35-47) % MCV (80-97) fL MCH (27-31) pg MCHC (31-36) g/dl RDW (10.5-15) % Plt Count (150-450) 10^3/ul MPV (7.4-10.4) um3 Neut % (Auto) (38-83) % Lymph % (Auto) (25-47) % Kle[place] % (Auto) (1-9) % Eos % (Auto) (0-6) % Baso % (Auto) (0-2) % Absolute Neuts (auto) (1.5-7.7) 10^3/ul Absolute Lymphs (auto) (1.0-4.8) 10^3/ul Absolute Monos (auto) (0-0.8) 10^3/ul Absolute Eos (auto) (0-0.6) 10^3/ul Absolute Basos (auto) (0-0.2) 10^3/ul Absolute Nucleated RBC 10^3/ul Nucleated RBC % INR (Anticoag Therapy) (0.89-1.11) APTT (26.0-36.3) seconds D-Dimer, Quantitative (Less Than 230) ng/mL Sodium (133-145) mmol/L Potassium (3.5-5.0) mmol/L Chloride (101-111) mmol/L Carbon Dioxide (22-32) mmol/L Anion Gap (2-11) mmol/L BUN (6-24) mg/dL Creatinine (0.51-0.95) mg/dL Est GFR ( Amer) (>60) Est GFR (Non-Af Amer) (>60) BUN/Creatinine Ratio (8-20) Glucose (70-100) mg/dL Lactic Acid 0.6 (0.5-2.0) mmol/L Calcium (8.6-10.3) mg/dL Phosphorus (2.5-5.0) mg/dL Magnesium (1.9-2.7) mg/dL Total Bilirubin (0.2-1.0) mg/dL AST (13-39) U/L ALT (7-52) U/L Alkaline Phosphatase (34-104) U/L Total Creatine Kinase (10-223) U/L CK-MB (CK-2) (0.6-6.3) ng/mL Troponin I (<0.04) ng/mL C-Reactive Protein (< 5.00) mg/L B-Natriuretic Peptide 4196 H ( - 100) pg/mL Total Protein (6.4-8.9) g/dL Albumin (3.2-5.2) g/dL Globulin (2-4) g/dL Albumin/Globulin Ratio (1-3) Lipase (11.0-82.0) U/L TSH (0.34-5.60) mcIU/mL Assess/Plan/Problems-Billing Assessment: Ms. Joseph is a 46 yo female with a complicated PMH that includes COPD, combined systolic and diastolic HF, ESRD on HD, hx of DVT/PE with alveolar hemorrhage; AVR and MVR, CAD, and atrial fibrillation who presented to the ED on 12/31 with concern for cough and associated CP and increased sputum over the past 4 weeks, as well as progressive dyspnea. - Patient Problems (1) Shortness of breath Code(s): R06.02 - SHORTNESS OF BREATH Comment: Likely multifactorial, secondary to COPD, combined HF, ESRD, tobacco use Patient's metoprolol recently adjusted to help obtain better BP and HR control and encourage better cardiac output. Plan for repeat dialysis today due to suspected fluid overload. Methylprednisolone started for suspected COPD exacerbation. Will pursue pulmonology consult Trial CPAP for nighttime use, suspect patient may have [place]. Continue inhalers, add prn nebulizers (2) Chest pain Code(s): R07.9 - CHEST PAIN, UNSPECIFIED Comment: Trop 0.07, 0.06, no ST or T wave changes seen on EKG Appears to be associated with cough and is reproducible Continue antitussives, add prn morphine (3) COPD (chronic obstructive pulmonary disease) Code(s): J44.9 - CHRONIC OBSTRUCTIVE PULMONARY DISEASE, UNSPECIFIED Comment: With suspected exacerbation Continue methyprednisolone, Spiriva, prn nebulziers Add Dulera (4) Congestive heart failure Code(s): I50.9 - HEART FAILURE, UNSPECIFIED Comment: Suspect acute on chronic exacerbation, given CXR and incomplete dialysis Patient with history of combined systolic and diastolic HF Plan for additional dialysis session today (5) ESRD (end stage renal disease) on dialysis Current Visit: No Status: Acute Code(s): N18.6 - END STAGE RENAL DISEASE; Z99.2 - DEPENDENCE ON RENAL DIALYSIS SNOMED Code(s): 485984478 Comment: Continue dialysis per nephrology team Patient as outpatient dialysis on /Th/Sat schedule Last inpatient dialysis on 01/01/17 (6) Atrial fibrillation Code(s): I48.91 - UNSPECIFIED ATRIAL FIBRILLATION Comment: Rate controlled Continue diltiazem, metoprolol, labetalol, apixaban (7) HTN (hypertension) Code(s): I10 - ESSENTIAL (PRIMARY) HYPERTENSION Comment: Hypertensive Will likely improve following dialysis Pain and anxiety likely contributors Continue home metoprolol, labetalol, diltiazem, amlodipine, clonidine (8) History of coronary artery disease Code(s): Z86.79 - PERSONAL HISTORY OF OTHER DISEASES OF THE CIRCULATORY SYSTEM Comment: Continue ASA and beta clara. (9) History of DVT (deep vein thrombosis) Code(s): Z86.718 - PERSONAL HISTORY OF OTHER VENOUS THROMBOSIS AND EMBOLISM Comment: Also with hx of PE Continue home apixaban. (10) Tobacco abuse disorder Code(s): Z72.0 - TOBACCO USE Comment: I have advised the patient to quit smoking. PRN nicotine replacement ordered. (11) S/P AVR (aortic valve replacement) Code(s): Z95.2 - PRESENCE OF PROSTHETIC HEART VALVE Comment: TAVR in May 2016 [place] in October 2016 shows functional valve (12) DVT prophylaxis Comment: Apixaban Status and Disposition: Inpatient admission. Anticipate LOS >2 days. Counseling and/or Coordination of Care Minutes: 75
[2017-01-01] MEDS ORDERED: hydrOXYzine HCL TAB* 25 MG PO PRN (12:46)
[2017-01-01] MEDS ORDERED: Albuterol 2.5 MG/3 ML NEB.SOL* (0.083%) INH PRN (12:46)
[2017-01-01] MEDS ORDERED: Heparin DIALYSIS ONLY(*) 1,000 UNITS/ML VIAL DIALYSIS ONE (13:00)
[2017-01-01] MEDS ORDERED: Nicotine Inhaler* 10 MG AMP INH PRN (13:59)
[2017-01-01] MEDS: Moisturizing CREAM* 113 GM JAR TOPICAL SCH ×2 (14:00→19:55)
[2017-01-01] MEDS: Cetirizine* 10 MG TAB PO SCH (14:46)
[2017-01-01] MEDS: Sertraline* 25 MG TAB PO SCH (14:46)
[2017-01-01] MEDS: Mometasone/Formoter 200/5 MDI INH SCH ×2 (14:57→20:05)
[2017-01-01 17:03] LABS: PCO2 Arterial 51 mmHg (35-45)
[2017-01-01] MEDS: Capsaicin 0.025% CREAM* 60 GM TOPICAL SCH (19:56)
--- NOTE | 2017-01-01 20:19 | CONS ---
PULMONARY CONSULTATION REPORT: DATE OF CONSULT: 01/01/17 CONSULTATION REQUESTED BY: Nisha Hudson NP REASON FOR CONSULT: Evaluation of shortness of breath. HISTORY OF PRESENT ILLNESS: The patient is a 46-year-old female known to me from prior evaluation in the past for shortness of breath. The patient has history of systolic and diastolic heart failure, end-stage renal disease on hemodialysis, history of COPD, history of DVT/PE complicated by alveolar hemorrhage, history of aortic valve and mitral valve replacement, coronary artery disease, atrial fibrillation complicated by RVR, transarterial valve replacement in May 2016 and was hospitalized to [facility] in October 2016 for worsening shortness of breath, which was attributed to multiple comorbidities. The patient's cardiac medications were recently adjusted, she was started on beta-clara and the dose was also increased. The patient presents for evaluation of worsening cough and shortness of breath. The patient reports that she also has ran out of her inhalers when she could not afford the inhalers. The patient reports that inhalers help her with her breathing. Son is at her bedside and also adds that she was not able to take her inhalers for past 2 weeks with worsening of her shortness of breath. The patient prior to my visit into her room was conversing with her son, she was talking loudly without any noticeable dyspnea. The patient also reports pruritus and feelings of bugs crawling on her extremities. The patient reports significant depression symptoms. The patient continues to smoke and upon further questioning regarding smoking, she appears to be upset and reports that it has been really hard for her to quit due to all that stress she is going through. The patient is currently being treated for acute COPD exacerbation. She has end -stage renal disease on hemodialysis and is continuing on hemodialysis. She is currently on methylprednisolone, receiving Spiriva and nebulizers. She also reports sleep symptoms, declined sleep study in the past, is agreeable currently. PAST MEDICAL HISTORY: 1. Hypertension. 2. COPD. 3. Obesity. 4. End-stage renal disease, on hemodialysis. 5. Marked left ventricular hypertrophy on beta-blockers. 6. Pulmonary hemorrhage in 2016 in setting of anticoagulation for DVT/PE. 7. Atrial fibrillation. 8. Systolic heart failure. 9. Anemia. 10. DVT and PE. 11. Coronary bypass in 2013 and aortic valve replacement and possible mitral valve replacement. 12. History of hysterectomy. 13. Knee arthroscopies. 14. Recurrent TAVR in May 2013, secondary to aortic stenosis. 15. Anemia of chronic disease. 16. Depression. 18. Anxiety. 19. Current smoking status. HOME MEDICATIONS: 1. Labetalol 200 mg twice daily. 2. Metoprolol 50 mg twice daily. 3. Montelukast 10 mg daily. 4. Nitroglycerin 0.4 mg every 5 minutes as needed. 5. Sensipar 90 mg daily. 6. Lidocaine and procaine topical every other day. 7. Xanax 0.25 mg 3 times a day. 8. Vitamin E 400 units twice daily. 9. Eliquis 5 mg twice daily. 10. Tiotropium 1 capsule inhaled daily. 11. Diltiazem CD 240 mg daily. 12. Clonidine 0.2 mg twice daily. 13. Kayexalate 50 mg daily. 14. B complex and folate 1 tab daily. 15. Renvela 4000 mg 3 times a day with meals. 16. Oxycodone extended release 15 mg daily. 17. Benadryl 25 mg daily. 18. Aspirin 81 mg daily. 19. Amlodipine 5 mg daily. ALLERGIES: LISINOPRIL, PENICILLIN, IODINE, CEPHALOSPORINS. FAMILY HISTORY: Noncontributory to current complaint, review. SOCIAL HISTORY: Current smoker, smokes about half to a pack a day. Denies alcohol or drug abuse. She lives at home with her daughter. She is currently on disability and is waiting for Medicare. REVIEW OF SYSTEMS: All 14 systems reviewed and as per HPI. Review of systems negative other than stated in the HPI. PHYSICAL EXAM: General: The patient is sitting in bed, in no apparent distress , able to talk in full sentences. Vital Signs: Temperature 97.8, pulse 83 beats per minute, respiratory rate 16 per minute, O2 sat 100% on 2.5 L, blood pressure 162/94. HEENT: Pupils equal, reactive to light. Mucous membranes moist, no JVD. Respiratory: Good air entry bilaterally, bibasilar rales, no wheeze. Cardiovascular: Regular rate and rhythm, 3/6 systolic murmur. Abdomen : Soft, nontender, nondistended. Bowel sounds present. Extremities: Normal range of motion, no edema. Skin: No rash or bruises. Neurologic: Alert, awake, oriented x3. No focal deficits. DIAGNOSTIC STUDIES/LAB DATA: WBC count 6.3, hemoglobin 9.0, hematocrit 27, platelet count 130,000. Sodium 135, potassium 3.5, chloride 91, bicarb 38, BUN 24, creatinine 5.04. Troponin elevated at 0.07, repeat 0.06. BNP 4196. Chest x-ray on admission was personally reviewed by me - cardiomegaly and diffuse reticular pattern consistent with possible interstitial edema. IMPRESSION AND RECOMMENDATIONS: 46-year-old female with multiple comorbidities with recurrent admissions to the hospital in the past for multiple issues, admitted with worsening shortness of breath and cough, being treated for acute chronic obstructive pulmonary disease exacerbation. The patient also appears to have psychological issues, her anxiety might be contributing significantly to her breathing issues. She still continues to smoke, understands the risk associated with it. Smoking cessation education was performed during today's visit that lasted 4 minutes. The patient willing to quit; however, reports significant anxiety and reports she is unable to do it as she is concerned about her anxiety worsening. The patient would want to wait until she starts feeling better. I agree with antibiotics for possible chronic obstructive pulmonary disease exacerbation. Continue with methylprednisolone, will start tapering quickly as the patient does not have significant wheezing on auscultation. She does have crackles at the bases, which could have been from fluid overload. She has missed dialysis 2 weeks ago, is being dialyzed here per schedule. Continue with anticoagulation. Continue with bronchodilators. The patient reports she is having trouble obtaining her medications due to not having insurance and unable to afford the co-pay. I have volunteered to provide her with samples from the office and to use her inhalers regularly. She qualifies for Trilogy given chronic hypercapnic resp failure. Will make arrangements at d/c. Thank you for allowing me to participate in the care of your patient. Will follow up with you. D/w Dr Burns and Nisha Hudson [employer] [id number]/CPS #: [id number] SHI
[2017-01-02] MEDS: methylPREDNISolone SOD 40 MG* 1 ML VIAL IV SCH (02:51)
[2017-01-02] MEDS: Morphine INJ* 4 MG/ML 1 ML SYRINGE IV PRN ×5 (02:59→21:44)
[2017-01-02 04:56] LABS: BUN/Creatinine Ratio 6.4 (8-20); Calcium 9.1 mg/dL (8.6-10.3); EGFR African American 9.9 (>60); EGFR Non-African American 7.7 (>60); Potassium 4.9 mmol/L (3.5-5.0)
[2017-01-02] MEDS: Mometasone/Formoter 200/5 MDI INH SCH ×2 (07:53→21:09)
[2017-01-02] MEDS: Tiotropium CAP.INH* CAP.INH/18 MCG INH SCH (07:53)
[2017-01-02] MEDS: cloNIDine TAB* 0.1 MG PO SCH ×2 (08:45→21:42)
[2017-01-02] MEDS: Apixaban* 5 MG TAB PO SCH ×2 (08:48→21:43)
[2017-01-02] MEDS: predniSONE TAB* 20 MG PO SCH (08:48)
[2017-01-02] MEDS: amLODIPine TAB* 5 MG PO SCH (08:48)
[2017-01-02] MEDS: Montelukast Sodium TAB* 10 MG PO SCH (08:49)
[2017-01-02] MEDS: Labetalol TAB* 200 MG PO SCH ×2 (08:49→21:43)
[2017-01-02] MEDS: Aspirin EC Low Dose* 81 MG TAB.EC PO SCH (08:49)
[2017-01-02] MEDS: Sertraline* 25 MG TAB PO SCH (08:49)
[2017-01-02] MEDS: Cetirizine* 10 MG TAB PO SCH (08:49)
[2017-01-02] MEDS: Diltiazem CD CAP* 240 MG PO SCH (08:49)
[2017-01-02] MEDS: Metoprolol Tartrate TAB* 50 mg PO SCH ×2 (08:49→21:43)
[2017-01-02] MEDS: Cinacalcet TAB* 30 MG PO SCH (08:51)
[2017-01-02] MEDS: Sevelamer TAB* 800 MG PO SCH ×3 (08:51→17:26)
[2017-01-02] MEDS: Capsaicin 0.025% CREAM* 60 GM TOPICAL SCH ×2 (08:51→21:43)
[2017-01-02] MEDS: Moisturizing CREAM* 113 GM JAR TOPICAL SCH ×3 (12:48→21:42)
[2017-01-02] MEDS ORDERED: Mouth Piece, Nicotine* 1 EACH CARTRIDGE ONE (12:54)
--- NOTE | 2017-01-02 14:03 | PN ---
Subjective Date of Service: 01/02/17 Interval History: Patient seen and examined at bedside. She is in the process of making phone calls in order to get home equipment secured. She has spoken with the smoking cessation counselor and feels motivated to quit smoking. She reports that Dr. Ceja has offered to give samples for her inhalers, as she has not been using them consistently, due to running out and not being able to pay for refills. Patient working with CM/SW team to help obtain medications and determine a plan for refills. Patient reports significant improvement to pruritis with capsaicin cream and Eucerin. Breathing has improved with inhalers. Patient feels more encouraged and feels motivated to go home and continue on her current therapy regimen. Family History: Unchanged from Admission Social History: Unchanged from Admission Past Medical History: Unchanged from Admission Objective Active Medications: Albuterol (Ventolin Hfa Inhaler*) 2 puff INH Q4H PRN PRN Reason: SOB/WHEEZING Last Admin: 01/01/17 09:53 Dose: 2 puff Albuterol (Ventolin 2.5 Mg/3 Ml Neb.Tonya*) 2.5 mg INH Q2H PRN PRN Reason: SOB/WHEEZING Amlodipine Besylate (Norvasc Tab*) 5 mg PO DAILY [facility] Last Admin: 01/02/17 08:48 Dose: 5 mg Apixaban (Eliquis*) 5 mg PO BID [facility] Last Admin: 01/02/17 08:48 Dose: 5 mg Aspirin (Aspirin Ec Low Dose*) 81 mg PO DAILY [facility] Last Admin: 01/02/17 08:49 Dose: 81 mg Capsaicin (Zostrix 0.025% Cream*) 1 applic TOPICAL BID [facility] Last Admin: 01/02/17 08:51 Dose: 1 applic Cetirizine HCl (Zyrtec*) 5 mg PO DAILY [facility] Last Admin: 01/02/17 08:49 Dose: 5 mg Cinacalcet (Sensipar Tab*) 90 mg PO DAILY [facility] Last Admin: 01/02/17 08:51 Dose: 90 mg Clonidine HCl (Catapres Tab*) 0.3 mg PO BID [facility] Last Admin: 01/02/17 08:45 Dose: 0.3 mg Codeine Sulfate (Codeine Tab*) 15 mg PO Q6H PRN PRN Reason: COUGH Last Admin: 01/01/17 06:25 Dose: 15 mg Device (Tiotropium Inhaler Device*) 1 each INH .USE w/ SPIRIVA CAPS [facility] Diltiazem HCl (Cardizem Cd Cap*) 240 mg PO DAILY [facility] Last Admin: 01/02/17 08:49 Dose: 240 mg Hydroxyzine HCl (Atarax Tab*) 25 mg PO BID PRN PRN Reason: ITCHING Last Admin: 01/01/17 14:46 Dose: 25 mg Diphenhydramine HCl 50 mg/ (Sodium Chloride) 51 mls @ 102 mls/hr IVPB Q6H PRN PRN Reason: PRURITIS Labetalol HCl (Trandate Tab*) 200 mg PO BID [facility] Last Admin: 01/02/17 08:49 Dose: 200 mg Lorazepam (Ativan Tab(*)) 0.5 mg PO Q6H PRN PRN Reason: ANXIETY Metoprolol Tartrate (Lopressor Tab*) 50 mg PO BID [facility] Last Admin: 01/02/17 08:49 Dose: 50 mg Mometasone Furoate/Formoterol Fumar (Dulera 200/5 Mdi*) 2 puff INH BID [facility] Last Admin: 01/02/17 07:53 Dose: 2 puff Montelukast Sodium (Singulair Tab*) 10 mg PO DAILY [facility] Last Admin: 01/02/17 08:49 Dose: 10 mg Morphine Sulfate (Morphine Inj (Syringe)*) 4 mg IV Q4H PRN PRN Reason: PAIN Last Admin: 01/02/17 12:59 Dose: 4 mg Multi-Ingredient Ointment (Hydrocerin*) 1 applic TOPICAL TID [facility] Last Admin: 01/02/17 12:48 Dose: Not Given Nicotine (Nicotine Inhaler*) 10 mg INH Q2H PRN PRN Reason: CRAVING Last Admin: 01/02/17 12:59 Dose: 10 mg Nitroglycerin (Nitroglycerin Tab 0.4 Mg*) 0.4 mg SL Q5M PRN PRN Reason: ANGINA Ondansetron HCl (Zofran Inj*) 4 mg IV Q4H PRN PRN Reason: NAUSEA/VOMITING Last Admin: 01/01/17 01:41 Dose: 4 mg Prednisone (Deltasone Tab*) 40 mg PO DAILY [facility] Stop: 01/05/17 09:01 Last Admin: 01/02/17 08:48 Dose: 40 mg Sertraline HCl (Zoloft*) 25 mg PO DAILY [facility] Last Admin: 01/02/17 08:49 Dose: 25 mg Sevelamer Carbonate (Renvela Tab*) 4,000 mg PO TID WITH MEALS [facility] Last Admin: 01/02/17 12:57 Dose: 4,000 mg Tiotropium Sipsey (Spiriva Cap.Inh*) 1 cap INH DAILY [facility] Last Admin: 01/02/17 07:53 Dose: 1 cap Vital Signs 01/01/17 01/01/17 01/01/17 14:53 14:59 15:02 Temperature Pulse Rate 80 79 Respiratory 18 16 16 Rate Blood Pressure 162/94 (mmHg) O2 Sat by Pulse 93 100 Oximetry 01/01/17 01/01/17 01/01/17 15:24 16:02 19:44 Temperature 98.4 F Pulse Rate 79 Respiratory 18 17 18 Rate Blood Pressure 144/102 (mmHg) O2 Sat by Pulse 99 Oximetry 01/01/17 01/01/17 01/01/17 19:46 20:00 20:06 Temperature Pulse Rate 91 90 Respiratory 18 17 17 Rate Blood Pressure 175/115 (mmHg) O2 Sat by Pulse 100 99 Oximetry 01/02/17 01/02/17 01/02/17 00:25 01:00 02:59 Temperature 97.6 F Pulse Rate 81 Respiratory 16 19 20 Rate Blood Pressure 167/103 (mmHg) O2 Sat by Pulse 100 Oximetry 01/02/17 01/02/17 01/02/17 03:58 03:59 07:58 Temperature 98.0 F Pulse Rate 75 87 Respiratory 16 18 16 Rate Blood Pressure 167/117 (mmHg) O2 Sat by Pulse 100 96 Oximetry 01/02/17 01/02/17 01/02/17 08:00 08:24 08:52 Temperature 98.4 F Pulse Rate 84 Respiratory 22 16 20 Rate Blood Pressure 175/115 (mmHg) O2 Sat by Pulse 96 Oximetry 01/02/17 01/02/17 09:52 12:59 Temperature Pulse Rate Respiratory 20 20 Rate Blood Pressure (mmHg) O2 Sat by Pulse Oximetry Oxygen Devices in Use Now: Nasal Cannula Appearance: Chronically ill appearing female, pleasant, in good spirits, NAD Ears/Nose/Mouth/Throat: Clear Oropharnyx, Mucous Membranes Moist Neck: NL Appearance and Movements; NL JVP Respiratory: Symmetrical Chest Expansion and Respiratory Effort, - - diminished Cardiovascular: - - systolic murmur, irreg rate/rhythm Abdominal: NL Sounds; No Tenderness; No Distention Neurological: Alert and Oriented x 3, NL Muscle Strength and Tone Lines/Tubes/Other Access: Clean, Dry and Intact Peripheral IV Nutrition: Taking PO's Result Diagrams: 12/31/16 12:30 01/02/17 04:34 Additional Lab and Data: Lab Results 12/31/16 12/31/16 12/31/16 Range/Units 12:30 12:30 12:30 WBC 6.3 (3.5-10.8) 10^3/ul RBC 2.70 L (4.0-5.4) 10^6/ul Hgb 9.0 L (12.0-16.0) g/dl Hct 27 L (35-47) % MCV 101 H (80-97) fL MCH 33 H (27-31) pg MCHC 33 (31-36) g/dl RDW 18 H (10.5-15) % Plt Count 130 L (150-450) 10^3/ul MPV 9 (7.4-10.4) um3 Neut % (Auto) 69.9 (38-83) % Lymph % (Auto) 14.6 L (25-47) % [place] % (Auto) 12.9 H (1-9) % Eos % (Auto) 1.6 (0-6) % Baso % (Auto) 1.0 (0-2) % Absolute Neuts (auto) 4.4 (1.5-7.7) 10^3/ul Absolute Lymphs (auto) 0.9 L (1.0-4.8) 10^3/ul Absolute Monos (auto) 0.8 (0-0.8) 10^3/ul Absolute Eos (auto) 0.1 (0-0.6) 10^3/ul Absolute Basos (auto) 0.1 (0-0.2) 10^3/ul Absolute Nucleated RBC 0 10^3/ul Nucleated RBC % 0 INR (Anticoag Therapy) 0.96 (0.89-1.11) APTT 32.5 (26.0-36.3) seconds D-Dimer, Quantitative 383 H (Less Than 230) ng/mL Sodium 135 (133-145) mmol/L Potassium 3.5 (3.5-5.0) mmol/L Chloride 91 L (101-111) mmol/L Carbon Dioxide 38 H (22-32) mmol/L Anion Gap 6 (2-11) mmol/L BUN 24 (6-24) mg/dL Creatinine 5.04 H (0.51-0.95) mg/dL Est GFR ( Amer) 11.9 (>60) Est GFR (Non-Af Amer) 9.2 (>60) BUN/Creatinine Ratio 4.8 L (8-20) Glucose 80 (70-100) mg/dL Lactic Acid (0.5-2.0) mmol/L Calcium 9.2 (8.6-10.3) mg/dL Phosphorus 3.2 (2.5-5.0) mg/dL Magnesium 2.2 (1.9-2.7) mg/dL Total Bilirubin 0.70 (0.2-1.0) mg/dL AST 28 (13-39) U/L ALT 21 (7-52) U/L Alkaline Phosphatase 87 (34-104) U/L Total Creatine Kinase 60 (10-223) U/L CK-MB (CK-2) 2.0 (0.6-6.3) ng/mL Troponin I 0.07 H* (<0.04) ng/mL C-Reactive Protein 1.30 (< 5.00) mg/L B-Natriuretic Peptide ( - 100) pg/mL Total Protein 6.7 (6.4-8.9) g/dL Albumin 4.2 (3.2-5.2) g/dL Globulin 2.5 (2-4) g/dL Albumin/Globulin Ratio 1.7 (1-3) Lipase 99 H (11.0-82.0) U/L TSH 1.48 (0.34-5.60) mcIU/mL 12/31/16 12/31/16 Range/Units 12:30 12:30 WBC (3.5-10.8) 10^3/ul RBC (4.0-5.4) 10^6/ul Hgb (12.0-16.0) g/dl Hct (35-47) % MCV (80-97) fL MCH (27-31) pg MCHC (31-36) g/dl RDW (10.5-15) % Plt Count (150-450) 10^3/ul MPV (7.4-10.4) um3 Neut % (Auto) (38-83) % Lymph % (Auto) (25-47) % [place] % (Auto) (1-9) % Eos % (Auto) (0-6) % Baso % (Auto) (0-2) % Absolute Neuts (auto) (1.5-7.7) 10^3/ul Absolute Lymphs (auto) (1.0-4.8) 10^3/ul Absolute Monos (auto) (0-0.8) 10^3/ul Absolute Eos (auto) (0-0.6) 10^3/ul Absolute Basos (auto) (0-0.2) 10^3/ul Absolute Nucleated RBC 10^3/ul Nucleated RBC % INR (Anticoag Therapy) (0.89-1.11) APTT (26.0-36.3) seconds D-Dimer, Quantitative (Less Than 230) ng/mL Sodium (133-145) mmol/L Potassium (3.5-5.0) mmol/L Chloride (101-111) mmol/L Carbon Dioxide (22-32) mmol/L Anion Gap (2-11) mmol/L BUN (6-24) mg/dL Creatinine (0.51-0.95) mg/dL Est GFR ( Amer) (>60) Est GFR (Non-Af Amer) (>60) BUN/Creatinine Ratio (8-20) Glucose (70-100) mg/dL Lactic Acid 0.6 (0.5-2.0) mmol/L Calcium (8.6-10.3) mg/dL Phosphorus (2.5-5.0) mg/dL Magnesium (1.9-2.7) mg/dL Total Bilirubin (0.2-1.0) mg/dL AST (13-39) U/L ALT (7-52) U/L Alkaline Phosphatase (34-104) U/L Total Creatine Kinase (10-223) U/L CK-MB (CK-2) (0.6-6.3) ng/mL Troponin I (<0.04) ng/mL C-Reactive Protein (< 5.00) mg/L B-Natriuretic Peptide 4196 H ( - 100) pg/mL Total Protein (6.4-8.9) g/dL Albumin (3.2-5.2) g/dL Globulin (2-4) g/dL Albumin/Globulin Ratio (1-3) Lipase (11.0-82.0) U/L TSH (0.34-5.60) mcIU/mL Assess/Plan/Problems-Billing Assessment: Ms. Joseph is a 46 yo female with a complicated PMH that includes COPD, combined systolic and diastolic HF, ESRD on HD, hx of DVT/PE with alveolar hemorrhage; AVR and MVR, CAD, and atrial fibrillation who presented to the ED on 12/31 with concern for cough and associated CP and increased sputum over the past 4 weeks, as well as progressive dyspnea. - Patient Problems (1) Shortness of breath Code(s): R06.02 - SHORTNESS OF BREATH Comment: Likely multifactorial, secondary to COPD, combined HF, ESRD, tobacco use Patient admits to medication nonadherence, secondary to monetary issues SW/CM following Appreciate pulmonology consult Continue inhalers, add prn nebulizers Evaluate to see if patient qualifies for trilogy (2) Chest pain Code(s): R07.9 - CHEST PAIN, UNSPECIFIED Comment: Trop 0.07, 0.06, no ST or T wave changes seen on EKG Appears to be associated with cough and is reproducible Continue antitussives, prn morphine (3) Generalized pruritus Code(s): L29.9 - PRURITUS, UNSPECIFIED Comment: Improved Suspect secondary to uremia Patient also describes formication, appears to have improved with topical capsaicin Continue prn antihistamines (4) Dysphagia Code(s): R13.10 - DYSPHAGIA, UNSPECIFIED Comment: Swallow eval [facility] sauces/gravies and take small bites. (5) COPD (chronic obstructive pulmonary disease) Code(s): J44.9 - CHRONIC OBSTRUCTIVE PULMONARY DISEASE, UNSPECIFIED Comment: With suspected exacerbation Start prednisone, continue Spiriva, Dulera, and prn nebulizers (6) Congestive heart failure Code(s): I50.9 - HEART FAILURE, UNSPECIFIED Comment: Suspect acute on chronic exacerbation, given CXR and incomplete dialysis Patient with history of combined systolic and diastolic HF S/p dialysis 01/01 Continue daily weights, I/O, volume restriction (7) ESRD (end stage renal disease) on dialysis Current Visit: No Status: Acute Code(s): N18.6 - END STAGE RENAL DISEASE; Z99.2 - DEPENDENCE ON RENAL DIALYSIS SNOMED Code(s): 629583939 Comment: Continue dialysis per nephrology team Patient as outpatient dialysis on /Fri schedule Last inpatient dialysis on 01/01/17 (8) Atrial fibrillation Code(s): I48.91 - UNSPECIFIED ATRIAL FIBRILLATION Comment: Rate controlled Continue diltiazem, metoprolol, labetalol, apixaban (9) HTN (hypertension) Code(s): I10 - ESSENTIAL (PRIMARY) HYPERTENSION Comment: Hypertensive Pain and anxiety likely contributors Continue home metoprolol, labetalol, diltiazem, amlodipine, clonidine PRN hydralazine (10) History of coronary artery disease Code(s): Z86.79 - PERSONAL HISTORY OF OTHER DISEASES OF THE CIRCULATORY SYSTEM Comment: Continue ASA and beta clara. (11) History of DVT (deep vein thrombosis) Code(s): Z86.718 - PERSONAL HISTORY OF OTHER VENOUS THROMBOSIS AND EMBOLISM Comment: Also with hx of PE Continue home apixaban. (12) Tobacco abuse disorder Code(s): Z72.0 - TOBACCO USE Comment: I have advised the patient to quit smoking. PRN nicotine replacement ordered. (13) S/P AVR (aortic valve replacement) Code(s): Z95.2 - PRESENCE OF PROSTHETIC HEART VALVE Comment: TAVR in May 2016 [place] in October 2016 shows functional valve (14) DVT prophylaxis Comment: Apixaban Status and Disposition: Inpatient admission. Anticipate LOS >2 days.
[2017-01-02] MEDS ORDERED: hydrALAZINE IV* 20 MG/ML VIAL IV SLOW PU PRN (17:16)
[2017-01-02] MEDS: Codeine TAB* 15 MG PO PRN (17:38)
[2017-01-03] MEDS: Morphine INJ* 4 MG/ML 1 ML SYRINGE IV PRN ×3 (04:17→15:31)
[2017-01-03 07:07] LABS: BUN/Creatinine Ratio 7.8 (8-20); Calcium 8.2 mg/dL (8.6-10.3); EGFR Non-African American 5.5 (>60); Potassium 5.3 mmol/L (3.5-5.0)
[2017-01-03] MEDS: Mometasone/Formoter 200/5 MDI INH SCH (08:05)
[2017-01-03] MEDS: Tiotropium CAP.INH* CAP.INH/18 MCG INH SCH (08:05)
[2017-01-03] MEDS: Diltiazem CD CAP* 240 MG PO SCH (08:52)
[2017-01-03] MEDS: Cinacalcet TAB* 30 MG PO SCH (08:52)
[2017-01-03] MEDS: Montelukast Sodium TAB* 10 MG PO SCH (08:53)
[2017-01-03] MEDS: Sertraline* 25 MG TAB PO SCH (08:53)
[2017-01-03] MEDS: Sevelamer TAB* 800 MG PO SCH ×2 (08:53→12:27)
[2017-01-03] MEDS: Labetalol TAB* 200 MG PO SCH (08:53)
[2017-01-03] MEDS: Cetirizine* 10 MG TAB PO SCH (08:53)
[2017-01-03] MEDS: Metoprolol Tartrate TAB* 50 mg PO SCH (08:53)
[2017-01-03] MEDS: cloNIDine TAB* 0.1 MG PO SCH (08:54)
[2017-01-03] MEDS: Aspirin EC Low Dose* 81 MG TAB.EC PO SCH (08:54)
[2017-01-03] MEDS: Apixaban* 5 MG TAB PO SCH (08:54)
[2017-01-03] MEDS: Capsaicin 0.025% CREAM* 60 GM TOPICAL SCH (08:54)
[2017-01-03] MEDS: predniSONE TAB* 20 MG PO SCH (08:54)
[2017-01-03] MEDS: amLODIPine TAB* 5 MG PO SCH (08:54)
[2017-01-03] MEDS: Moisturizing CREAM* 113 GM JAR TOPICAL SCH ×2 (08:55→14:21)
[2017-01-03] MEDS ORDERED: Heparin DIALYSIS ONLY(*) 1,000 UNITS/ML VIAL DIALYSIS ONE (12:00)
[2017-01-03] MEDS ORDERED: Epoetin Alfa* 10,000 UNITS/ML VIAL IV ONE (12:00)
[2017-01-03 16:56] VITALS: BP 148/92
--- NOTE | 2017-01-04 05:49 | DS ---
CC: [facility] Internal Medicine; Dr. Osorio; Dr. Ceja * DISCHARGE SUMMARY: DATE OF ADMISSION: 12/31/16 DATE OF DISCHARGE: 01/03/17 PRIMARY CARE PROVIDER: [facility] Internal Medicine. PRIMARY HOB MACHINE OPERATOR: Dr. Osorio. CONSULTING PRINTER SLOTTER FEEDER: Dr. Ceja. DISCHARGING PROVIDER: JONATHON Padilla SUPERVISING PHYSICIAN: Rafael Redman MD * (DICTATED BY JONATHON PADILLA) PRIMARY DISCHARGE DIAGNOSES: 1. Chronic obstructive pulmonary disease exacerbation. 2. Acute on chronic combined systolic and diastolic heart failure. 3. Obstructive sleep apnea. 4. Pruritus. 5. Chronic dysphagia. SECONDARY DISCHARGE DIAGNOSES: 1. End-stage renal disease, on hemodialysis, followed by Dr. Osorio. 2. Atrial fibrillation, anticoagulated with Eliquis. 3. Hypertension. 4. History of coronary artery disease. 5. History of deep venous thrombosis. 6. Tobacco abuse. 7. Aortic stenosis, status post aortic valve replacement. DISCHARGE MEDICATIONS: 1. Xanax 0.25 mg p.o. t.i.d. as needed for anxiety. 2. Combivent 1 puff q.6 hours as needed for shortness of breath. 3. Eliquis 5 mg p.o. b.i.d. 4. Aspirin 81 mg p.o. daily. 5. Sensipar 90 mg p.o. daily. 6. Clonidine 0.3 mg p.o. b.i.d. 7. Diltiazem 240 mg p.o. daily. 8. Labetalol 200 mg p.o. twice daily. 9. Metoprolol 50 mg p.o. b.i.d. 10. Dulera 2 puffs inhaled twice daily. 11. Singulair 10 mg p.o. daily. 12. Nitroglycerin 0.4 mg sublingual q.5 minutes as needed for chest pain. 13. Oxycodone 15 mg p.o. q.6 hours as needed for pain. 14. Sertraline 25 mg p.o. daily. 15. Renvela 4000 mg p.o. t.i.d. with meals. 16. Kayexalate 15 g p.o. daily. 17. Spiriva 1 capsule inhaled daily. 18. Vitamin E 400 units p.o. b.i.d. 19. Amlodipine 5 mg p.o. daily. 20. Benadryl 25 mg p.o. at bedtime. 21. Prednisone 20 mg p.o. daily x3 days. MEDICATION CHANGES: 1. Start Dulera. 2. Prednisone for 3 additional days. 3. Start Combivent. HOSPITAL IMAGING: Chest x-ray demonstrates cardiomegaly with pulmonary interstitial edema. HOSPITAL COURSE: This is a 46-year-old female with a complicated medical history including end-stage renal disease, on hemodialysis as well as a history of DVT and PE, combined systolic and diastolic heart failure, history of an aortic and mitral valve replacement, COPD, coronary artery disease, atrial fibrillation who presented to the emergency department with complaints of shortness of breath. The patient has had associated cough over the last several weeks, which she attributed to viral syndrome. She had also missed at least to one dialysis appointment at some point and ran out of her Spiriva at home for at least 2 weeks. At the time of initial presentation, her chest x- ray demonstrated some evidence of pulmonary edema, but no significant hypoxia. The patient was subsequently admitted for suspected COPD and CHF exacerbation. The patient received diuresis via dialysis and was started on her usual Spiriva as well as corticosteroids and Dulera for suspected COPD exacerbation. The patient was also evaluated by facilities administrator, Dr. Ceja, who agreed with plan for treatment of COPD exacerbation, but also felt that the patient would strongly benefit from Trilogy machine for treatment of her COPD and chronic hypocarbia demonstrated by ABG during her hospital stay. The patient noted improvement with above intervention. She required 3 L of supplement oxygen at baseline which she was stable on at the time of discharge. One of the biggest contributors to her hospital stay seems to be due to some difficulty obtaining her medications. Appreciated work from Social Work who coordinated through [facility] that the patient can receive majority of her medications there, which will be less complicated and more convenient for the patient. Some of her outstanding medications and new medications were sent electronically to [facility] at the time of discharge. DISPOSITION AND FOLLOWUP PLAN: The patient is being discharged to home with above medication changes as well as order for Trilogy machine per the recommendation of Dr. Ceja. Recommend close followup with Dr. Ceja as well as her primary care provider and [facility]. The patient is understanding of her discharge plan and is in agreement. JONATHON PADILLA [id number]/[facility] #: [id number] SHI
== END 2017-01-03 17:42 | disposition home or self-care (01) | DRG 190 ==
LOC: ED 10:43 → MEDTELE 14:20
PROVIDERS: ADMIT Internal Medicine; ATTEND Hospitalist
PROC: 5A1D60Z (ICD-10-PCS; principal; 2017-01-01)
DX: J44.1 Chronic obstructive pulmonary disease with (acute) exacerbation (principal); I50.43 Acute on chronic combined systolic (congestive) and diastolic (congestive) heart failure; J96.12 Chronic respiratory failure with hypercapnia; N18.6 End stage renal disease; R13.19 Other dysphagia; I48.91 Unspecified atrial fibrillation; I13.2 Hypertensive heart and chronic kidney disease with heart failure and with stage 5 chronic kidney disease, or end stage renal disease; G47.33 Obstructive sleep apnea (adult) (pediatric); L29.9 Pruritus, unspecified; I25.10 Atherosclerotic heart disease of native coronary artery without angina pectoris; F17.210 Nicotine dependence, cigarettes, uncomplicated; I35.0 Nonrheumatic aortic (valve) stenosis; D63.1 Anemia in chronic kidney disease; F32.9 Major depressive disorder, single episode, unspecified; F41.9 Anxiety disorder, unspecified; Z99.2 Dependence on renal dialysis; Z95.1 Presence of aortocoronary bypass graft; Z95.2 Presence of prosthetic heart valve; Z79.01 Long term (current) use of anticoagulants; Z79.82 Long term (current) use of aspirin; Z79.891 Long term (current) use of opiate analgesic; Z79.899 Other long term (current) drug therapy; Z86.718 Personal history of other venous thrombosis and embolism; Z88.0 Allergy status to penicillin; Z88.8 Allergy status to other drugs, medicaments and biological substances; Z86.711 Personal history of pulmonary embolism
CPT/HCPCS: 36415; 36600; 71010; 80048; 80053; 82550; 82553; 82803; 83036; 83605; 83690; 83735; 83880; 84100; 84443; 84484; 85025; 85379; 85610; 85730; 86140; 87040; 90935; 93005; 94640; 94660; 94760; A9270-GY; G0257; J0360; J0885; J1200; J1644; J1956; J2270; J2405; J2920; J2930; J7512

== ENCOUNTER 2017-03-13 01:38 | Inpatient (IN) | payer MEDICARE, MEDICAID ==
[2017-03-13] MEDS ORDERED: Nitroglycerin TAB 0.4 MG* 0.4 MG TAB ONE (02:06)
[2017-03-13] MEDS ORDERED: nitroGLYCERIN DRIP* 500 ML ONE (02:19)
[2017-03-13] MEDS ORDERED: fentaNYL* 50 MCG/ML 2 ML VIAL (100 MCG VIAL) ONE (02:37)
[2017-03-13] MEDS ORDERED: Diltiazem TAB* 30 MG ONE (03:37)
[2017-03-13] MEDS ORDERED: Diltiazem IV VIAL* 125 MG/25 ML VIAL ONE (03:38)
[2017-03-13 04:48] LABS: Hematocrit 27 % (35-47); Mean Corpuscular HGB Conc 34 g/dl (31-36); Mean Corpuscular Hemoglobin 35 pg (27-31); Mean Corpuscular Volume 104 fL (80-97); Mean Platelet Volume 9 um3 (7.4-10.4); Red Blood Count 2.61 10^6/ul (4.0-5.4); Red Cell Distribution Width 18 % (10.5-15)
[2017-03-13 04:49] LABS: Albumin 3.9 g/dL (3.2-5.2); BUN/Creatinine Ratio 6.7 (8-20); Calcium 9.7 mg/dL (8.6-10.3); Direct Bilirubin 0.1 mg/dL (0.03-0.18); EGFR African American 6.7 (>60); EGFR Non-African American 5.2 (>60); Globulin 2.5 g/dL (2-4); Indirect Bilirubin 0.5 mg/dL (0.3-1.0); Magnesium 2.3 mg/dL (1.9-2.7); Phosphorus 8.3 mg/dL (2.5-5.0); Potassium 4.3 mmol/L (3.5-5.0); Total Bilirubin 0.6 mg/dL (0.2-1.0); Total Protein 6.4 g/dL (6.4-8.9)
[2017-03-13] MEDS ORDERED: fentaNYL* 50 MCG/ML 2 ML VIAL (100 MCG VIAL) IV SLOW PU ONE (05:01)
[2017-03-13] MEDS ORDERED: Morphine INJ* 4 MG/ML 1 ML CARPUJECT IV ONE (07:50)
--- NOTE | 2017-03-13 07:56 | ED ---
Ginette Greenwood Thomas, scribed for Jamey Velasquez MD on 03/13/17 at 0554 . Shortness of Breath - HPI Summary HPI Summary: The pt is a 46 y/o F BIBA c/o SOB that began yesterday and has progressively worsened since onset. She has SOB at rest. She also c/o CP described as pressure that is worsened with deep breaths. She has a Hx of ESRD and last received dialysis two days ago on 03/11/17. At time of examination, her blood pressure is 169/102. 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 She does not have a Hx of DVT. She gets dialysis three times a week. - History of Current Complaint Chief Complaint: EDShortnessOfBreath Hx Obtained From: Patient Onset/Duration: Lasting Hours - onset of SOB today, Still Present Current Severity: Moderate Dyspnea At: Rest Aggrevating Factors: Nothing Alleviating Factors: Nothing Associated Signs & Symptoms: Chest Pain Unrelated to Cough - described as heaviness - Allergy/Home Medications Allergies/Adverse Reactions: Allergies Allergy/AdvReac Type Severity Reaction Status Date / Time Iodixanol [From Visipaque] Allergy Severe Airway Verified 01/31/17 14:03 Obstruction Lisinopril Allergy Severe Difficulty Verified 01/31/17 14:03 Breathing Penicillins Allergy Severe HIVES,SWELLING Verified 01/31/17 14:03 THROAT Cephalosporins Allergy not Verified 01/31/17 14:03 specified PMH/Surg Hx/FS Hx/Imm Hx Previously Healthy: No Endocrine/Hematology History: Reports: Hx Anticoagulant Therapy, Hx Blood Transfusions, Hx Unexplained Bleeding Denies: Hx Blood Disorders, Hx Bone Marrow Disease, Hx Diabetes, Hx Systemic Lupus Erythematosus, Hx Sickle Cell Disease, Hx Thyroid Disease, Hx Anemia, Other Endocrine/Hematological Disorders Cardiovascular History: Reports: Hx Angina, Hx Cardiomegaly, Hx Congestive Heart Failure, Hx Coronary Artery Disease, Hx Deep Vein Thrombosis, Hx Hypercholesterolemia, Hx Hypertension, Hx Myocardial Infarction, Hx Valvular Heart Disease, Other Cardiovascular Problems/Disorders - 2 artificial heart valves; Hx of endocarditis Denies: Hx Aneurysm, Hx Angioplasty, Hx Auto Implanted Cardiovert Defib, Hx Cardiac Arrest, Hx Congenital Heart Disease, Hx Embolism, Hx Hypotension, Hx Pacemaker/ICD, Hx Peripheral Vascular Disease, Hx Rheumatic Fever, Hx Syncope Respiratory History: Reports: Hx Asthma, Hx Chronic Obstructive Pulmonary Disease (COPD), Hx Pneumonia, Hx Pulmonary Edema, Hx Pulmonary Embolism, Other Respiratory Problems/Disorders - PULMONARY EDEMA Denies: Hx Chronic Bronchitis, Hx Cystic Fibrosis, Hx Lung Cancer, Hx Pleural Effusion, Hx Seasonal Allergies, Hx Sleep Apnea History: Reports: Hx Chronic Renal Failure, Hx Dialysis - ESRD, [place] ON // FRI, Hx Renal Disease Denies: Hx Benign Prostatic Hyperplasia, Hx Kidney Infection, Hx Kidney Stones, Other Problems/Disorders Musculoskeletal History: Reports: Hx Arthritis, Hx Back Problems Denies: Hx Bursitis, Hx Congenital Bone Abnormalities, Hx Fibromyalgia, Hx Gout, Hx Orthopedic Injury, Hx Osteoporosis, Hx Scoliosis, Hx Tendonitis, Other Musculoskeletal History Sensory History: Denies: Hx Contacts or Glasses, Hx Hearing Aid Opthamlomology History: Denies: Hx Contacts or Glasses Neurological History: Reports: Hx Headaches Denies: Hx Seizures Psychiatric History: Reports: Hx Anxiety, Hx Depression Denies: Hx Attention Deficit Hyperactivity Disorder, Hx Eating Disorder, Hx Panic Disorder, Hx Post Traumatic Stress Disorder, Hx Inpatient Treatment, Hx Community Mental Health Tx, Hx Schizophrenia, Hx Bipolar Disorder, Hx Suicide Attempt, Hx of Violent Episodes Against Others, Hx Substance Abuse, Other Psychiatric Issues/Disorders - Surgical History Surgery Procedure, Year, and Place: bilateral knees, dialysis tube placed in abdomen( out), fistula tube placement in arm for dialysis Lt arm has been revised. waiting out ok to use [id number], open heart valve replacement, hysterectomy, stents Hx Anesthesia Reactions: No - Immunization History Date of Tetanus Vaccine: Unk Date of Influenza Vaccine: Unk Infectious Disease History: No Infectious Disease History: Reports: Hx of Known/Suspected MRSA - Negative Denies: Hx Clostridium Difficile, Hx Hepatitis, Hx Human Immunodeficiency Virus (HIV), Hx Shingles, Hx Tuberculosis, Hx Known/Suspected VRE, Traveled Outside the [place] in Last 30 Days - Family History Known Family History: Positive: None - no malignant hyperthermia. no anesthesia rxn., Hypertension - Mother, Diabetes - Mother, Other - negative FHx for malignant hyperthermia and anesthesia rxn. Family History: Father -- Lung CA - Social History Alcohol Use: None Hx Substance Use: No Substance Use Type: Reports: None Hx Tobacco Use: Yes Smoking Status (MU): Light Every Day Tobacco Smoker Type: Cigarettes Amount Used/How Often: 2 cigarettes a day Length of Time of Smoking/Using Tobacco: 15 Have You Smoked in the Last Year: Yes Review of Systems Negative: Fever Positive: Chest Pain - described as pressure Positive: Shortness Of Breath All Other Systems Reviewed And Are Negative: Yes Physical Exam - Summary Physical Exam Summary: Appearance: Well-appearing, Well-nourished. She appears anxious. Skin: Warm and dry. Eyes: Normal ENT: Normal Neck: Supple, nontender Respiratory: Diminished breath sounds bilaterally. Cardiovascular: Rapid atrial fibrillation. Abdomen: Soft. There is diffuse nonfocal tenderness throughout the anterior abdomen with palpation. Bowel: Present Musculoskeletal: Strength/ROM Intact. There is diffuse nonfocal tenderness throughout the chest wall and anterior abdomen with palpation. Neurological: Normal, Alert, Oriented to Person EXTREMITIES: She has bilateral fistulas that are not currently being used. There is no obvious lower extremity edema bilaterally. Psychiatric: She appears anxious. Triage Information Reviewed: Yes Vital Signs On Initial Exam: Initial Vitals Temp Pulse Resp BP Pulse Ox 98.3 F 94 26 153/122 95 03/13/17 01:39 03/13/17 01:39 03/13/17 01:39 03/13/17 01:39 03/13/17 01:39 Vital Signs Reviewed: Yes - [place] Coma Scale Coma Scale Total: 15 Diagnostics - Vital Signs Vital Signs Temp Pulse Resp BP Pulse Ox 03/13/17 05:39 127 18 100 03/13/17 05:38 129 15 100 03/13/17 05:28 18 03/13/17 02:00 32 03/13/17 01:39 98.3 F 94 26 153/122 95 - Laboratory Lab Results: Lab Results 03/13/17 03/13/17 03/13/17 Range/Units 02:20 02:20 02:20 WBC 8.0 (3.5-10.8) 10^3/ul RBC 2.61 L (4.0-5.4) 10^6/ul Hgb 9.0 L (12.0-16.0) g/dl Hct 27 L (35-47) % MCV 104 H (80-97) fL MCH 35 H (27-31) pg MCHC 34 (31-36) g/dl RDW 18 H (10.5-15) % Plt Count 171 (150-450) 10^3/ul MPV 9 (7.4-10.4) um3 Neut % (Auto) 73.4 (38-83) % Lymph % (Auto) 13.8 L (25-47) % [place] % (Auto) 10.3 H (1-9) % Eos % (Auto) 1.6 (0-6) % Baso % (Auto) 0.9 (0-2) % Absolute Neuts (auto) 5.9 (1.5-7.7) 10^3/ul Absolute Lymphs (auto) 1.1 (1.0-4.8) 10^3/ul Absolute Monos (auto) 0.8 (0-0.8) 10^3/ul Absolute Eos (auto) 0.1 (0-0.6) 10^3/ul Absolute Basos (auto) 0.1 (0-0.2) 10^3/ul Absolute Nucleated RBC 0.03 10^3/ul Nucleated RBC % 0.4 INR (Anticoag Therapy) 0.95 (0.89-1.11) APTT 29.7 (26.0-36.3) seconds Sodium 134 (133-145) mmol/L Potassium 4.3 (3.5-5.0) mmol/L Chloride 90 L (101-111) mmol/L Carbon Dioxide 32 (22-32) mmol/L Anion Gap 12 H (2-11) mmol/L BUN 56 H (6-24) mg/dL Creatinine 8.30 H (0.51-0.95) mg/dL Est GFR ( Amer) 6.7 (>60) Est GFR (Non-Af Amer) 5.2 (>60) BUN/Creatinine Ratio 6.7 L (8-20) Glucose 94 (70-100) mg/dL Calcium 9.7 (8.6-10.3) mg/dL Phosphorus 8.3 H (2.5-5.0) mg/dL Magnesium 2.3 (1.9-2.7) mg/dL Total Bilirubin 0.60 (0.2-1.0) mg/dL Direct Bilirubin 0.10 (0.03-0.18) mg/dL Indirect Bilirubin 0.5 (0.3-1.0) mg/dL AST 22 (13-39) U/L ALT 12 (7-52) U/L Alkaline Phosphatase 75 (34-104) U/L B-Natriuretic Peptide ( - 100) pg/mL Total Protein 6.4 (6.4-8.9) g/dL Albumin 3.9 (3.2-5.2) g/dL Globulin 2.5 (2-4) g/dL Albumin/Globulin Ratio 1.6 (1-3) 03/13/17 Range/Units 02:20 WBC (3.5-10.8) 10^3/ul RBC (4.0-5.4) 10^6/ul Hgb (12.0-16.0) g/dl Hct (35-47) % MCV (80-97) fL MCH (27-31) pg MCHC (31-36) g/dl RDW (10.5-15) % Plt Count (150-450) 10^3/ul MPV (7.4-10.4) um3 Neut % (Auto) (38-83) % Lymph % (Auto) (25-47) % [place] % (Auto) (1-9) % Eos % (Auto) (0-6) % Baso % (Auto) (0-2) % Absolute Neuts (auto) (1.5-7.7) 10^3/ul Absolute Lymphs (auto) (1.0-4.8) 10^3/ul Absolute Monos (auto) (0-0.8) 10^3/ul Absolute Eos (auto) (0-0.6) 10^3/ul Absolute Basos (auto) (0-0.2) 10^3/ul Absolute Nucleated RBC 10^3/ul Nucleated RBC % INR (Anticoag Therapy) (0.89-1.11) APTT (26.0-36.3) seconds Sodium (133-145) mmol/L Potassium (3.5-5.0) mmol/L Chloride (101-111) mmol/L Carbon Dioxide (22-32) mmol/L Anion Gap (2-11) mmol/L BUN (6-24) mg/dL Creatinine (0.51-0.95) mg/dL Est GFR ( Amer) (>60) Est GFR (Non-Af Amer) (>60) BUN/Creatinine Ratio (8-20) Glucose (70-100) mg/dL Calcium (8.6-10.3) mg/dL Phosphorus (2.5-5.0) mg/dL Magnesium (1.9-2.7) mg/dL Total Bilirubin (0.2-1.0) mg/dL Direct Bilirubin (0.03-0.18) mg/dL Indirect Bilirubin (0.3-1.0) mg/dL AST (13-39) U/L ALT (7-52) U/L Alkaline Phosphatase (34-104) U/L B-Natriuretic Peptide 2687 H ( - 100) pg/mL Total Protein (6.4-8.9) g/dL Albumin (3.2-5.2) g/dL Globulin (2-4) g/dL Albumin/Globulin Ratio (1-3) Result Diagrams: 03/13/17 02:20 03/13/17 02:20 Lab Statement: Any lab studies that have been ordered have been reviewed, and results considered in the medical decision making process. - Radiology CXR Xray Interpretation: Positive (See Comments) - Diffuse congestion. Radiology Interpretation Completed By: ED Physician - EKG 02:10 Cardiac Rate: Tachycardia - 159 BPM EKG Rhythm: Atrial Fibrillation - Additional Comments Diagnostic Additional Comments: Bedside ultrasound of the chest was done by the ED physician. There were limited views. There are extensive B-lines bilaterally throughout the lung funk. Cardiac views are limited due to body habitus. There is no obvious evidence of right heart enlargement or pericardial effusion. Re-Evaluation - Re-Evaluation First Eval Re-Evaluation Time: 02:30 Change: Unchanged Comment: When asked if she still urinates, she says occasionally. She is now on BiPap. Her BP is 168/100. She denies liver disease and will be given 25 mg of Fentanyl. Second Eval Re-Evaluation Time: 03:15 Change: Unchanged Comment: She now complains of left flank pain. The differential now includes pulmonary embolism. Course/Dx - Course Course Of Treatment: irrigationist consulted, unable to wean off bipap, admitted for further respiratory care and possible dialysis later today - Diagnoses Provider Diagnoses: Fluid overload, Respiratory distress, Rapid atrial fibrillation - Physician Notifications Discussed Care of Patient With: Franck Osorio Time Discussed With Above Provider: 04:53 Instructed by Provider To: Other - Dr. Osorio, nephrology, agrees with the plan for admission to the ICU. He will consider dialysis in the AM. I also consulted with Dr. Humphrey primary school teacher librarian, at 04:31 regarding patient care. - Critical Care Time Critical Care Time: 75-104 min - 80 minutes. Discharge - Discharge Plan Condition: Guarded Disposition: ADMITTED TO [facility] Referrals: No Primary Care Phys,NOPCP [Primary Care Provider] - The documentation as recorded by the Ginette sosa Thomas accurately reflects the service I personally performed and the decisions made by me, Jamey Velasquez MD.
[2017-03-13] MEDS ORDERED: Morphine INJ* 2 MG/ML 1 ML CARPUJECT IV PRN (08:11)
--- NOTE | 2017-03-13 08:22 | RAD ---
INDICATION: Shortness of breath and left-sided chest pressure COMPARISON: Chest x-ray dated December 31, 2016 TECHNIQUE: Single AP portable view of the chest was obtained. FINDINGS: Image quality is compromised due to the relative inferiority of a portable chest x-ray. Stable postsurgical findings include an aortic prostatic valve and sternotomy wires. There is mild to moderate cardiomegaly similar in appearance to the prior chest x-ray. The pulmonary vasculature is mildly engorged and indistinct relative to the prior chest x-ray. There is a small degree of left greater than right costophrenic angle blunting. There is no large lobar or focal consolidation. Visualized bones are normal for the patient's age. IMPRESSION: In the correct clinical setting these chest x-ray findings could be consistent with exacerbation of cardiogenic pulmonary edema.
[2017-03-13] MEDS ORDERED: amLODIPine TAB* 5 MG PO SCH (09:00)
[2017-03-13] MEDS ORDERED: Sodium Polystyrene ORAL.SOL* 15 GM/60 ML BTL PO SCH (09:00)
[2017-03-13] MEDS ORDERED: Aspirin EC Low Dose* 81 MG TAB.EC PO SCH (09:00)
[2017-03-13] MEDS ORDERED: Labetalol TAB* 200 MG PO SCH (09:00)
[2017-03-13] MEDS ORDERED: Sertraline* 25 MG TAB PO SCH (09:00)
[2017-03-13] MEDS ORDERED: Montelukast Sodium TAB* 10 MG PO SCH (09:00)
[2017-03-13] MEDS ORDERED: Spiriva Inhaler DEVICE* 1 EACH DEVICE ONE (09:00)
[2017-03-13] MEDS ORDERED: Apixaban* 5 MG TAB PO SCH (09:00)
[2017-03-13] MEDS ORDERED: Cinacalcet TAB* 30 MG PO SCH (09:00)
[2017-03-13] MEDS ORDERED: Vitamin E CAP* 400 UNIT PO SCH (09:00)
[2017-03-13] MEDS ORDERED: Diltiazem DRIP* 100 MG/100 ML ADDV.BAG IVPB SCH (09:00)
[2017-03-13] MEDS ORDERED: Diltiazem CD CAP* 240 MG PO SCH (09:00)
[2017-03-13] MEDS ORDERED: cloNIDine TAB* 0.1 MG PO SCH (09:00)
[2017-03-13] MEDS ORDERED: Tiotropium CAP.INH* CAP.INH/18 MCG (USE ORDER SET !) INH SCH (09:00)
[2017-03-13] MEDS ORDERED: Metoprolol Tartrate TAB* 50 mg PO SCH (09:00)
--- NOTE | 2017-03-13 10:56 | HP ---
CC: Dr. Osorio; Dr. Haskins* HISTORY AND PHYSICAL: DATE OF ADMISSION: 03/13/17 PRIMARY CARE PROVIDER: Dr. Osorio. CHIEF COMPLAINT: Shortness of breath. HISTORY OF PRESENT ILLNESS: Juany Joseph is a 46-year-old female well-known to us from multiple previous hospitalizations with history of end-stage renal disease , uncontrolled hypertension, and chronic pain, who presented to the hospital with complaints of acute onset of shortness of breath at night. The patient came in with heart rate into 160s. Her systolic pressure went into 200s range. She was noted to have pulmonary edema on x-ray and increased work of breathing , her oxygen saturation was noted not to be that hypoxemic. She was placed on BiPAP due to increased work of breathing. The patient had been complaining of left-sided pleuritic chest pain, worse with movement. She is going to be admitted to the ICU with diagnosis of shortness of breath due to pulmonary edema and dialyzed. PAST MEDICAL HISTORY: 1. History of hypertension, grossly uncontrolled. 2. History of COPD, on oxygen, and CPAP at night. 3. Obesity. 4. End-stage renal disease, on dialysis, Tuesdays, , and Saturdays. 5. History of marked left ventricular hypertrophy and with EF of 55% to 60% noted on [place] in October of 2016. 6. History of pulmonary hemorrhage in April of 2016 in the setting of anticoagulation. 7. History of atrial fibrillation, chronic. 8. History of systolic heart failure. 9. History of anemia. 10. History of DVT and PE. 11. History of coronary artery bypass grafting, 2013, status post aortic valve replacement and mitral valve repair. 12. Hysterectomy. 13. Knee arthroscopy. 14. Anemia of chronic disease. 15. Depression. 16. Anxiety. 17. Coronary artery disease with recent stenting in May of 2016. CURRENT MEDICATIONS: Include: 1. Oxycodone 10 mg up to 4 times a day for chronic pain. 2. Daily Evelina 1 tablet daily. 3. Aspirin 81 mg daily. 4. Apixaban 5 mg daily. 5. Combivent Respimat 1 inhalation every 6 hours p.r.n. 6. Xanax 0.25 mg 3 times a day p.r.n. 7. Lidocaine and prilocaine topical every other day cream to affected area. 8. Labetalol 200 mg b.i.d. 9. Cardizem CD 240 mg daily. 10. Clonidine 0.3 mg b.i.d. 11. Sensipar 90 mg daily. 12. Kayexalate 15 g daily. 13. Renvela 4000 mg with meals. 14. Zoloft 25 mg daily. 15. Nitroglycerin sublingually on a p.r.n. basis. 16. Singulair 10 mg daily. 17. Dulera 200/5 two puffs inhalation b.i.d. 18. Metoprolol tartrate 50 mg b.i.d. 19. Benadryl 25 mg at bedtime. 20. Amlodipine 5 mg daily. 21. Vitamin E 400 units b.i.d. 22. Spiriva 1 inhalation daily. FAMILY HISTORY: Positive for hypertension. SOCIAL HISTORY: The patient smokes 3 cigarettes a day. She denies any alcohol or drug use. She lives with her children and is disabled. She is full code and her surrogates are her children, Ileana De Los Santos and James De Los Santos. REVIEW OF SYSTEMS: Difficult to obtain in this patient on BiPAP. The patient stated that she usually uses CPAP and oxygen at night and all of a sudden she started feeling very short of breath and having left-sided chest pain that is worse with movement. She continues to have chest pain despite having multiple narcotics in the emergency department. She is currently on nitroglycerin drip at 70 mcg with systolic pressure in the 190s. Her heart rate is in the 120s and she is in atrial fibrillation. Her BiPAP is set at 50% FiO2 and her oxygen saturation is 100%. Remaining review of systems is very limited in this patient because she is currently on BiPAP. The patient stated that she did not miss her dialysis. She did not gain any weight recently. She denies dietary noncompliance. All the remaining 12 systems were reviewed with the patient, limited, but otherwise negative. PHYSICAL EXAMINATION GENERAL: This is a very pleasant 46-year-old female, who is in no acute distress. Mildly tachypneic. The patient is alert and oriented x3. VITAL SIGNS: Blood pressure of 182/108, heart rate of 121 and irregularly irregular, respiratory rate 17, oxygen saturation 100% on 50% of FiO2 on BiPAP, temperature of 98.3. HEENT: Head: Atraumatic, normocephalic. Eyes: Pupils equal and reactive to light and accommodation. Oropharynx with moist mucosa. NECK: Supple. Positive for JVD bilaterally. RESPIRATORY: Rales in bilateral lower mid lungs. CARDIOVASCULAR: Irregularly irregular rhythm. No murmurs. ABDOMEN: Soft, nontender. Bowel sounds present in all 4 quadrants. EXTREMITIES: There is no edema. Pulses +2 bilaterally. No clubbing or cyanosis. On the left upper thigh, there is probable dialysis fistula in place with positive thrill. NEURO: Speech clear. Cranial nerves II through XII grossly intact. Motor strength is 5/5 bilaterally. PSYCHIATRIC: The patient is pleasant and cooperative with evaluation, the communication is somewhat limited by BiPAP. DIAGNOSTIC STUDIES/LAB DATA: Show white blood cell count of 8.0, hemoglobin 9.0, hematocrit of 27, MCV of 104, and platelets of 171. Sodium 134, potassium 4.2, chloride 90, carbon dioxide 32, BUN 56, creatinine 8.3. Liver function tests unremarkable. Brain natriuretic peptide was 2687. Troponin is pending at the time of dictation. The patient's EKG showed atrial fibrillation with a heart rate at 159 beats per minute with mildly hyperacute T waves in lateral leads. Portable chest x-ray reviewed by myself prior to the official radiologist report shows pulmonary edema. ASSESSMENT AND PLAN: 1. Acute respiratory failure due to pulmonary edema in a patient, who is requiring BiPAP at this point, due to increased work of breathing. The patient is going to be placed in intensive care unit. I already communicated with Dr. Osorio and the patient is going to be dialyzed today. For the time being, I will continue nitro drip as well as Cardizem drip for atrial fibrillation with rapid ventricular response. We will need to evaluate and we discussed with the patient further once she is liberated from BiPAP what precipitated this event. 2. For the patient's uncontrolled hypertension, most likely precipitated pulmonary edema and congestive heart failure which is acute diastolic. The patient has history of severe left ventricular hypertrophy with the ejection fraction of 55% to 60% documented in October of 2016. Due the patient's history of prosthetic valve, I will obtain another echocardiogram and follow the patient 's troponins. For the time being, as mentioned above, the patient is going to be placed on nitroglycerin drip. 3. In regards to the patient's left-sided pleuritic chest pain, most likely due to pulmonary edema. We will continue narcotics and reevaluate. The patient does have history of chronic pain and had been on oxycodone as an outpatient. 4. For atrial fibrillation with rapid ventricular response, the patient is going to be placed on Cardizem drip and once she is liberated from BiPAP and will take p.o., she is going to continue with Cardizem CD p.o. 5. For the end-stage renal disease, the patient is going to be dialyzed today. Renvela as well as Sensipar is going to be continued. 6. For history of chronic history of hyperkalemia in this patient with end- stage renal disease, Kayexalate is going to be continued. 7. The patient's chest pain is positional, likely musculoskeletal. The patient is anticoagulated with Eliquis, so pulmonary embolism is unlikely. At this time, the patient is going to be continued to be treated with p.o. and IV narcotics. We will continue to evaluate once the patient is liberated from BiPAP. The patient has also history of chronic chest pain and recurrent chest pain whenever she is admitted. 8. The patient's code status is full. TIME SPENT: Approximately 75 minutes was spent on admission of this patient, more than half that time was spent face- to-face with the patient during the interview and physical exam. [id number]/[facility] #: [id number] SHI
[2017-03-13] MEDS ORDERED: Heparin DIALYSIS ONLY(*) 1,000 UNITS/ML VIAL DIALYSIS ONE (11:00)
[2017-03-13] MEDS ORDERED: Epoetin Alfa* 10,000 UNITS/ML VIAL IV ONE (11:00)
[2017-03-13] MEDS: Morphine INJ* 2 MG/ML 1 ML SYRINGE (TWO MG - NEW SYRINGE VERSION) IV PRN ×3 (12:48→21:40)
[2017-03-13] MEDS ORDERED: Metoprolol Tartrate IV* 1 MG/ML 5 ML VIAL IV PRN (14:36)
[2017-03-13] MEDS: oxyCODONE TAB* 5 MG TAB PO PRN (15:54)
[2017-03-13] MEDS: Tiotropium CAP.INH* CAP.INH/18 MCG (USE ORDER SET !) INH SCH (16:14)
[2017-03-13] MEDS: Cinacalcet TAB* 30 MG PO SCH (16:15)
[2017-03-13] MEDS: Vitamin E CAP* 400 UNIT PO SCH (16:15)
[2017-03-13] MEDS: amLODIPine TAB* 5 MG PO SCH (16:16)
[2017-03-13] MEDS: cloNIDine TAB* 0.1 MG PO SCH (16:16)
[2017-03-13] MEDS: Aspirin EC Low Dose* 81 MG TAB.EC PO SCH (16:16)
[2017-03-13] MEDS: Metoprolol Tartrate TAB* 50 mg PO SCH (16:16)
[2017-03-13] MEDS: Labetalol TAB* 200 MG PO SCH (16:16)
[2017-03-13] MEDS: Montelukast Sodium TAB* 10 MG PO SCH (16:16)
[2017-03-13] MEDS: Diltiazem CD CAP* 240 MG PO SCH (16:16)
[2017-03-13] MEDS: Sertraline* 25 MG TAB PO SCH (16:16)
[2017-03-13] MEDS: Apixaban* 5 MG TAB PO SCH (16:17)
[2017-03-13] MEDS: ALPRAZolam TAB* 0.25 MG PO PRN (16:25)
--- NOTE | 2017-03-13 16:45 | ECHO ---
Patient: CLARISA CANTU [facility] Rec#: [id number] : 1970 Date: 03/13/2017 Age: 46y Height: 175.26 cm / 69.0 in Weight: 81.65 kg / 180.0 lbs Sex: F BSA: 1.98 Room#: 115 Admit Date#: 03/13/2017 Type: Inpatient Referring: Chioma Crockett MD Reading: Ap Sandoval MD Captain Waiter/Waitress: Connie Barrios DELON CC: Franck Osorio MD Transthoracic Echocardiogram Indication: CHF//SOB BP: 170/110 HR: 115 Rhythm: A-Fib Findings History: ESRD with dialysis,cardiomegaly,CHF,CAD,DVT,HLD,HTN,prior CA,s/p AV replacement,smoker. Technical Comments: The study quality is fair. Study done with patient supine and HOB at 45degrees. The study was technically limited due to the patient's inability to lay in the left lateral decubitus position. Completed at 1525. Left Ventricle: The left ventricular chamber size is normal. Severe concentric left ventricular hypertrophy is observed. There is normal left ventricular systolic function. The estimated ejection fraction is 55-60%. The assessment of diastolic function is non-diagnostic. Left Atrium: The left atrium is severely dilated. Right Ventricle: The right ventricular cavity size is normal. The right ventricular global systolic function is normal. Right Atrium: The right atrial cavity size is severely dilated. Aortic Valve: There is no evidence of aortic regurgitation. The mean gradient of the aortic valve is 32.65 mmHg. The aortic valve area, by VTI's, is calculated at 0.8 cm2. The highest aortic valve velocity was obtained with the standard probe from the A5C view. A bio-prosthetic aortic valve is present. The bioprosthetic valve IS A TAVR(#23 Sapian valve) (note the ring inside a ring)The leaflets appear to move unrestricted. The prosthetic aortic valve leaflets are normal. Mitral Valve: There is mitral annular calcification. Mitral valve anterior leaflet calcification is visualized. Mitral valve posterior leaflet calcification is visualized. There is restricted motion of the posterior leaflet. There is mild to moderate mitral regurgitation. There is mild mitral stenosis. The mean gradient across the mitral valve is 5.31 mmHg. The mitral valve area, by pressure half time, is calculated at 5 cm2. Tricuspid Valve: The tricuspid valve leaflets are mildly thickened. There is moderate tricuspid regurgitation. The tricuspid regurgitant jet is directed toward the septum. There is evidence of mild pulmonary hypertension. There is no tricuspid stenosis. Pulmonic Valve: The pulmonic valve appears normal. There is mild pulmonic regurgitation. There is no pulmonic stenosis. Pericardium: The pericardium appears normal. Aorta: The ascending aorta is not well visualized. There is no dilatation of the aortic arch. There is mild dilatation of the aortic root. Pulmonary Artery: The main pulmonary artery appears normal. Venous: The venous system is not well visualized. Due to c/o abdominal discomfort. Conclusions The left ventricular chamber size is normal. Severe concentric left ventricular hypertrophy is observed. There is normal left ventricular systolic function. The estimated ejection fraction is 55-60%. The left atrium is severely dilated. The right atrial cavity size is severely dilated. A #23 Sapian TAVR valve, inside a prior bioprosthetic valve is present. The leaflets appear to move unrestricted. The mean gradient of the aortic valve is 32.65 mmHg. There is mild to moderate mitral regurgitation. There is mild mitral stenosis. There is moderate tricuspid regurgitation. There is evidence of mild pulmonary hypertension. There is mild pulmonic regurgitation. There is mild dilatation of the aortic root. The patient is noted to be in atrial fibrillation. Compared to report of study from11/07/2016 It is now understood the aortic valve is a TAVR valve inside a prior bioprosthetic valve (TAVR procedure was performed 05/31/2016 at [facility] ) The degree of tricuspid regurgitation is less (was moderate to severe) , the degree of mitral regurgitation is less (was moderate). The mean gradient across the aortic valve is mildly increased (was 27.7 mm hg) but this can vary due to hemodynamic. The leaflets appear to move relatively unrestricted. Measurements Name Value Normal Range RVIDd (AP) 2D 2.8 cm (0.9 - 2.6) RVDdMajor (2D) 3.9 cm (2.2 - 4.4) RAd ISD 4CH 8.6 cm (3.4 - 4.9) RA (A4C)W 5.5 cm (2.9 - 4.6) IVSd (2D) 2 cm (0.6 - 1) LVPWd (2D) 2.3 cm (0.6 - 1) LVIDd (2D) 4.6 cm (3.6 - 5.4) LVIDs (2D) 3 cm - LV FS (2D) 34 % (25 - 45) Aortic Annulus 2.1 cm (1.4 - 2.6) Ao root diameter (2D) 4.1 cm (2.1 - 3.5) Aortic arch 2.6 cm (1.8 - 3.4) Descending Ao 0.6 cm - LA dimension (AP) 2D 6.2 cm (2.3 - 3.8) LAd ISD 4CH 8.6 cm (2.9 - 5.3) LA ISD 4CH W 5 cm (2.5 - 4.5) Name Value Normal Range LA ESV SP 4CH (A/L) 134 ml - LA ESV SP 2CH (A/L) 182 ml - LA ESV BP (A/L) 157 ml - LA ESV BP (A/L) index 79.46 ml/m2 - LA ESV SP 4CH (MOD) 125 ml - LA ESV SP 2CH (MOD) 170 ml - Name Value Normal Range MV E-wave Vmax 1.8 m/sec - MV deceleration time 163 msec - LV septal e' Vmax 0.09 m/sec - LV lateral e' Vmax 0.09 m/sec - LV E:e' septal ratio 20 ratio - LV E:e' lateral ratio 20 ratio - Name Value Normal Range AV Vmax 3.7 m/sec - AV VTI 71.4 cm - AV peak gradient 54.39 mmHg - AV mean gradient 32.65 mmHg - LVOT diameter 1.9 cm - LVOT Vmax 1.1 m/sec - LVOT VTI 20.6 cm - LVOT peak gradient 5.3 mmHg - LVOT mean gradient 2.87 mmHg - SV LVOT 56 ml - GONZALEZ (continuity Vmax) 0.8 cm2 - GONZALEZ (continuity VTI) 0.8 cm2 - Name Value Normal Range MV Vmax 1.9 m/sec - MV VTI 28.6 cm - MV peak gradient 14.73 mmHg - MV mean gradient 5.31 mmHg - MV PHT 44 msec - MVA (PHT) 5 cm2 - MVA (continuity VTI) 2 cm2 - Name Value Normal Range TR Vmax 2.9 m/sec - TR peak gradient 34 mmHg - RAP 8 mmHg - RVSP 42 mmHg - Name Value Normal Range PV Vmax 1.5 m/sec - PV peak gradient 8.61 mmHg -
[2017-03-13] MEDS: Sodium Polystyrene ORAL.SOL* 15 GM/60 ML BTL PO SCH ×2 (17:49→20:00)
[2017-03-13] MEDS: Mometasone/Formoter 200/5 MDI INH SCH ×2 (19:02→21:28)
[2017-03-13] MEDS: diPHENhydraMINE PO* 25 MG PO SCH (20:00)
[2017-03-13] MEDS: Nitro Patch/OINT Remove TOPICAL SCH (22:10)
[2017-03-13 23:57] LABS: Troponin I 0.1 ng/mL (<0.04)
[2017-03-14] MEDS: Metoprolol Tartrate TAB* 50 mg PO SCH ×3 (00:10→21:33)
[2017-03-14] MEDS: Labetalol TAB* 200 MG PO SCH ×3 (00:14→21:33)
[2017-03-14] MEDS: cloNIDine TAB* 0.1 MG PO SCH ×3 (00:14→21:33)
[2017-03-14] MEDS: Apixaban* 5 MG TAB PO SCH ×3 (00:15→21:33)
[2017-03-14] MEDS: Vitamin E CAP* 400 UNIT PO SCH ×3 (00:15→21:34)
[2017-03-14] MEDS: ALPRAZolam TAB* 0.25 MG PO PRN ×2 (00:40→10:17)
[2017-03-14] MEDS: hydrALAZINE IV* 20 MG/ML VIAL IV SLOW PU PRN ×2 (01:02→07:09)
[2017-03-14] MEDS: Morphine INJ* 2 MG/ML 1 ML SYRINGE (TWO MG - NEW SYRINGE VERSION) IV PRN ×8 (02:42→22:28)
[2017-03-14] MEDS: Nitroglycerin 2% OINT* 1 GM PAK TOPICAL SCH ×2 (05:50→12:23)
[2017-03-14 06:27] LABS: Hematocrit 26 % (35-47); Hemoglobin 8.8 g/dl (12.0-16.0); Mean Corpuscular HGB Conc 33 g/dl (31-36); Mean Corpuscular Hemoglobin 35 pg (27-31); Mean Corpuscular Volume 104 fL (80-97); Mean Platelet Volume 9 um3 (7.4-10.4); Red Blood Count 2.55 10^6/ul (4.0-5.4); Red Cell Distribution Width 18 % (10.5-15); White Blood Count 4.7 10^3/ul (3.5-10.8)
[2017-03-14 06:38] LABS: BUN/Creatinine Ratio 5.3 (8-20); Calcium 9.1 mg/dL (8.6-10.3); EGFR African American 8.8 (>60); EGFR Non-African American 6.8 (>60); Potassium 4.2 mmol/L (3.5-5.0)
[2017-03-14] MEDS ORDERED: Ondansetron INJ* 2 MG/ML VIAL IV PRN (06:50)
[2017-03-14] MEDS: Diltiazem CD CAP* 240 MG PO SCH (08:07)
[2017-03-14] MEDS: amLODIPine TAB* 5 MG PO SCH (08:07)
[2017-03-14] MEDS: Aspirin EC Low Dose* 81 MG TAB.EC PO SCH (08:08)
[2017-03-14] MEDS: Sertraline* 25 MG TAB PO SCH (08:08)
[2017-03-14] MEDS: Montelukast Sodium TAB* 10 MG PO SCH (08:08)
[2017-03-14] MEDS: Sodium Polystyrene ORAL.SOL* 15 GM/60 ML BTL PO SCH (08:25)
[2017-03-14] MEDS: Cinacalcet TAB* 30 MG PO SCH (09:51)
[2017-03-14] MEDS: oxyCODONE TAB* 5 MG TAB PO PRN ×2 (10:17→18:46)
[2017-03-14] MEDS: Mometasone/Formoter 200/5 MDI INH SCH ×2 (10:43→21:38)
[2017-03-14] MEDS: Tiotropium CAP.INH* CAP.INH/18 MCG (USE ORDER SET !) INH SCH (10:49)
[2017-03-14] MEDS: Sevelamer TAB* 800 MG PO SCH ×2 (13:37→18:48)
[2017-03-14] MEDS ORDERED: Epoetin Alfa* 10,000 UNITS/ML VIAL IV ONE (15:00)
[2017-03-14] MEDS ORDERED: Heparin DIALYSIS ONLY(*) 1,000 UNITS/ML VIAL DIALYSIS ONE (15:00)
--- NOTE | 2017-03-14 17:48 | PN ---
Subjective Date of Service: 03/14/17 Interval History: BPs and HRs better controlled. Additional HD session (5L off yesterday). pleuritic left sided chest pain. Has not seen supervisor machining (at [facility]) since had her stent. says compliant with her medications. Stepped down. Objective Active Medications: Alprazolam (Xanax Tab*) 0.25 mg PO TID PRN PRN Reason: ANXIETY Last Admin: 03/14/17 10:17 Dose: 0.25 mg Apixaban (Eliquis*) 5 mg PO 899,2099 [facility] Last Admin: 03/14/17 09:51 Dose: 5 mg Aspirin (Aspirin Ec Low Dose*) 81 mg PO 0900 [facility] Last Admin: 03/14/17 08:08 Dose: 81 mg Cinacalcet (Sensipar Tab*) 90 mg PO 0900 [facility] Last Admin: 03/14/17 09:51 Dose: 90 mg Clonidine HCl (Catapres Tab*) 0.3 mg PO 899,2099 [facility] Last Admin: 03/14/17 08:06 Dose: 0.3 mg Diltiazem HCl (Cardizem Cd Cap*) 240 mg PO 0900 [facility] Last Admin: 03/14/17 08:07 Dose: 240 mg Diphenhydramine HCl (Benadryl Po*) 25 mg PO BEDTIME [facility] Last Admin: 03/13/17 20:00 Dose: Not Given Hydralazine HCl (Apresoline Iv*) 5 mg IV SLOW PU Q6H PRN PRN Reason: BLOOD PRESSURE Last Admin: 03/14/17 07:09 Dose: 5 mg Labetalol HCl (Trandate Tab*) 200 mg PO 899,2099 [facility] Last Admin: 03/14/17 08:07 Dose: 200 mg Metoprolol Tartrate (Lopressor Iv*) 5 mg IV Q6H PRN PRN Reason: BLOOD PRESSURE Metoprolol Tartrate (Lopressor Tab*) 50 mg PO 899,2099 [facility] Last Admin: 03/14/17 08:09 Dose: 50 mg Mometasone Furoate/Formoterol Fumar (Dulera 200/5 Mdi*) 2 puff INH BID [facility] Last Admin: 03/14/17 10:43 Dose: 2 puff Montelukast Sodium (Singulair Tab*) 10 mg PO 0900 [facility] Last Admin: 03/14/17 08:08 Dose: 10 mg Morphine Sulfate (Morphine Inj (Syringe)*) 2 mg IV Q2H PRN PRN Reason: PAIN Last Admin: 03/14/17 15:06 Dose: 2 mg Nitroglycerin (Nitroglycerin 2% Oint*) 1 inch TOPICAL 0600,1200 [facility] PRN Reason: Protocol Last Admin: 03/14/17 12:23 Dose: 1 inch Ondansetron HCl (Zofran Inj*) 4 mg IV Q6H PRN PRN Reason: NAUSEA Oxycodone HCl (Roxycodone Tab*) 10 mg PO Q6H PRN PRN Reason: PAIN Last Admin: 03/14/17 10:17 Dose: 10 mg Pharmacy Profile Note (Nitro Patch/Oint Remove*) 1 note TOPICAL 2099 [facility] Last Admin: 03/13/17 22:10 Dose: Not Given Sertraline HCl (Zoloft*) 25 mg PO 0900 [facility] Last Admin: 03/14/17 08:08 Dose: 25 mg Sevelamer Carbonate (Renvela Tab*) 4,000 mg PO TID WITH MEALS [facility] Last Admin: 03/14/17 13:37 Dose: 4,000 mg Sodium Polystyrene Sulfonate (Kayexalate Oral.Tonya*) 15 gm PO 0900 [facility] Last Admin: 03/14/17 08:25 Dose: 15 gm Tiotropium [place] (Spiriva Cap.Inh*) 1 cap INH 0900 [facility] Last Admin: 03/14/17 10:49 Dose: 1 cap Vitamin E (Vitamin E Cap*) 400 unit PO 0900,2100 [facility] Last Admin: 03/14/17 09:51 Dose: 400 unit Vital Signs 03/13/17 03/13/17 03/13/17 17:49 18:00 18:01 Temperature Pulse Rate 102 108 Respiratory 15 14 14 Rate Blood Pressure 159/123 (mmHg) O2 Sat by Pulse 98 97 Oximetry 03/13/17 03/13/17 03/13/17 18:07 18:09 19:00 Temperature Pulse Rate 80 84 77 Respiratory 15 16 17 Rate Blood Pressure 167/121 (mmHg) O2 Sat by Pulse 98 95 99 Oximetry 03/13/17 03/13/17 03/13/17 19:17 19:30 19:53 Temperature Pulse Rate 81 73 75 Respiratory 9 20 14 Rate Blood Pressure 135/100 163/99 (mmHg) O2 Sat by Pulse 100 98 100 Oximetry 03/13/17 03/13/17 03/13/17 19:55 20:00 20:01 Temperature 98.7 F Pulse Rate 76 76 Respiratory 17 18 19 Rate Blood Pressure 170/110 (mmHg) O2 Sat by Pulse 100 99 Oximetry 03/13/17 03/13/17 03/13/17 20:02 20:31 21:00 Temperature Pulse Rate 86 74 77 Respiratory 23 15 12 Rate Blood Pressure 165/90 157/99 (mmHg) O2 Sat by Pulse 100 100 99 Oximetry 03/13/17 03/13/17 03/13/17 21:30 21:40 22:00 Temperature Pulse Rate 70 76 Respiratory 15 18 20 Rate Blood Pressure 160/91 156/114 (mmHg) O2 Sat by Pulse 100 100 Oximetry 03/13/17 03/13/17 03/13/17 22:12 22:30 23:00 Temperature Pulse Rate 75 72 73 Respiratory 13 13 13 Rate Blood Pressure 146/87 141/101 (mmHg) O2 Sat by Pulse 100 99 100 Oximetry 03/13/17 03/13/17 03/13/17 23:03 23:04 23:30 Temperature Pulse Rate 78 84 73 Respiratory 22 20 13 Rate Blood Pressure 162/94 (mmHg) O2 Sat by Pulse 100 100 99 Oximetry 03/13/17 03/14/17 03/14/17 23:45 00:00 00:13 Temperature 97.0 F Pulse Rate 74 71 Respiratory 15 11 Rate Blood Pressure 184/103 198/138 (mmHg) O2 Sat by Pulse 100 100 Oximetry 03/14/17 03/14/17 03/14/17 00:30 00:40 00:53 Temperature Pulse Rate 75 72 Respiratory 17 15 16 Rate Blood Pressure 205/115 215/106 (mmHg) O2 Sat by Pulse 100 99 Oximetry 03/14/17 03/14/17 03/14/17 00:56 01:00 01:01 Temperature Pulse Rate 67 69 66 Respiratory 24 18 13 Rate Blood Pressure 203/102 166/110 (mmHg) O2 Sat by Pulse 100 100 100 Oximetry 03/14/17 03/14/17 03/14/17 01:30 01:43 02:00 Temperature Pulse Rate 65 60 Respiratory 16 16 15 Rate Blood Pressure 167/91 156/89 (mmHg) O2 Sat by Pulse 99 98 Oximetry 03/14/17 03/14/17 03/14/17 02:30 02:32 02:41 Temperature Pulse Rate 70 74 65 Respiratory 17 22 18 Rate Blood Pressure 185/107 178/102 175/90 (mmHg) O2 Sat by Pulse 100 100 100 Oximetry 03/14/17 03/14/17 03/14/17 02:42 03:00 03:14 Temperature Pulse Rate 65 Respiratory 17 14 13 Rate Blood Pressure 156/92 (mmHg) O2 Sat by Pulse 99 Oximetry 03/14/17 03/14/17 03/14/17 03:30 04:00 04:30 Temperature 97.6 F Pulse Rate 61 62 58 Respiratory 16 13 14 Rate Blood Pressure 152/90 161/86 150/95 (mmHg) O2 Sat by Pulse 100 97 99 Oximetry 03/14/17 03/14/17 03/14/17 05:00 05:30 05:34 Temperature Pulse Rate 65 70 57 Respiratory 16 18 14 Rate Blood Pressure 153/107 180/90 164/94 (mmHg) O2 Sat by Pulse 100 100 100 Oximetry 03/14/17 03/14/17 03/14/17 06:00 06:03 06:12 Temperature Pulse Rate 60 64 Respiratory 18 18 17 Rate Blood Pressure 179/111 161/95 (mmHg) O2 Sat by Pulse 100 100 Oximetry 03/14/17 03/14/17 03/14/17 06:14 06:20 06:29 Temperature Pulse Rate 63 70 Respiratory 18 15 21 Rate Blood Pressure 172/126 177/102 (mmHg) O2 Sat by Pulse 100 100 Oximetry 03/14/17 03/14/17 03/14/17 06:30 07:00 07:01 Temperature Pulse Rate 61 64 65 Respiratory 21 18 16 Rate Blood Pressure 167/102 199/99 (mmHg) O2 Sat by Pulse 100 100 100 Oximetry 03/14/17 03/14/17 03/14/17 07:03 07:31 07:34 Temperature 98 F Pulse Rate 76 57 Respiratory 17 14 Rate Blood Pressure 206/97 187/103 (mmHg) O2 Sat by Pulse 99 99 Oximetry 03/14/17 03/14/17 03/14/17 08:00 08:26 08:30 Temperature Pulse Rate 73 64 Respiratory 17 24 19 Rate Blood Pressure 178/105 (mmHg) O2 Sat by Pulse 98 100 Oximetry 03/14/17 03/14/17 03/14/17 09:00 10:00 10:11 Temperature Pulse Rate 61 61 57 Respiratory 12 17 11 Rate Blood Pressure 175/90 196/113 170/108 (mmHg) O2 Sat by Pulse 93 100 97 Oximetry 03/14/17 03/14/17 03/14/17 10: 10:31 11:00 Temperature Pulse Rate 54 60 Respiratory 24 13 18 Rate Blood Pressure 157/107 169/91 (mmHg) O2 Sat by Pulse 98 99 Oximetry 03/14/17 03/14/17 03/14/17 11:13 11:21 13:30 Temperature 97.4 F 97.7 F Pulse Rate 109 Respiratory 11 16 Rate Blood Pressure 153/90 (mmHg) O2 Sat by Pulse 98 Oximetry 03/14/17 15:06 Temperature Pulse Rate Respiratory 20 Rate Blood Pressure (mmHg) O2 Sat by Pulse Oximetry Oxygen Devices in Use Now: Nasal Cannula Appearance: moderate distress vs anxiety. Eyes: No Scleral Icterus, PERRLA Ears/Nose/Mouth/Throat: NL Teeth, Lips, Gums, Mucous Membranes Moist Respiratory: Symmetrical Chest Expansion and Respiratory Effort, - - examination limied by pleuritic pain. No melina rhonchi. rales. Cardiovascular: NL Sounds; No Murmurs; No JVD, - - irregularly irregular Abdominal: NL Sounds; No Tenderness; No Distention, No Hepatosplenomegaly Extremities: - - trace edema Skin: No Rash or Ulcers, No Nodules or Sclerosis Neurological: Alert and Oriented x 3 Nutrition: Taking PO's Result Diagrams: 03/14/17 06:07 03/14/17 06:07 Additional Lab and Data: Laboratory Results - last 24 hr 03/13/17 03/14/17 03/14/17 02:20 06:07 06:07 WBC 4.7 RBC 2.55 L Hgb 8.8 L Hct 26 L MCV 104 H MCH 35 H MCHC 33 RDW 18 H Plt Count 164 MPV 9 Neut % (Auto) 67.4 Lymph % (Auto) 16.9 L [place] % (Auto) 12.2 H Eos % (Auto) 3.1 Baso % (Auto) 0.4 Absolute Neuts (auto) 3.2 Absolute Lymphs (auto) 0.8 L Absolute Monos (auto) 0.6 Absolute Eos (auto) 0.1 Absolute Basos (auto) 0 Absolute Nucleated RBC 0.05 Nucleated RBC % 1.0 Sodium 134 Potassium 4.2 Chloride 94 L Carbon Dioxide 32 Anion Gap 8 BUN 35 H Creatinine 6.56 H Est GFR ( Amer) 8.8 Est GFR (Non-Af Amer) 6.8 BUN/Creatinine Ratio 5.3 L Glucose 111 H Calcium 9.1 Troponin I 0.10 H* Assess/Plan/Problems-Billing Assessment: 46 yo female PMH HTN, ESRD, Afib, COPD, AVR, MVR, CT s/p stent, EF 55-60%, chronic pain on opioids p/w hypertensive urgency, AFib with RVR, , left sided pleuritic chest pain Hypertensive Urgency, likley diastolic CHF - improved, continue metoprolol 40mg q12, dilt 240mg qam, labetalol 200mg q12, change clonodine 0.3mg from BID to TID. stop amlodipine (?2 CCB). Consider imdur or hydralazine - will need close Cardiology f/u - repeat ECHO with stable EF, improved TVR to moderate - BNP 2687 initially AFib w/ RVR, improved - contiune vi blocking agents - continue Eliquis BID - ? consideration for ablation with PPM as outpatient Pleuritic Chest Pain (left) - likely 2/2 HTN urgency vs MSK. Less likely angina. - morphine 2mg q2hr prn - has chronic chest pains - troponins 0.10, 0.09, 0.11 - ?ranexa ESRD - continue HD CODE: FULL Status and Disposition: medicine inpatient, transferred from ICU to floor. Attending: Alexis David
[2017-03-14] MEDS: diPHENhydraMINE PO* 25 MG PO SCH (21:34)
[2017-03-14] MEDS: Nitro Patch/OINT Remove TOPICAL SCH (21:38)
[2017-03-15] MEDS: ALPRAZolam TAB* 0.25 MG PO PRN ×3 (01:46→19:42)
[2017-03-15] MEDS: Morphine INJ* 2 MG/ML 1 ML SYRINGE (TWO MG - NEW SYRINGE VERSION) IV PRN ×9 (01:46→22:49)
[2017-03-15] MEDS: Nitroglycerin 2% OINT* 1 GM PAK TOPICAL SCH ×2 (06:02→12:55)
[2017-03-15] MEDS: Tiotropium CAP.INH* CAP.INH/18 MCG (USE ORDER SET !) INH SCH (08:21)
[2017-03-15] MEDS: Mometasone/Formoter 200/5 MDI INH SCH ×2 (08:22→19:43)
[2017-03-15] MEDS: Cinacalcet TAB* 30 MG PO SCH (08:45)
[2017-03-15] MEDS: Apixaban* 5 MG TAB PO SCH ×2 (08:46→19:40)
[2017-03-15] MEDS: Vitamin E CAP* 400 UNIT PO SCH ×2 (08:46→19:40)
[2017-03-15] MEDS: Aspirin EC Low Dose* 81 MG TAB.EC PO SCH (08:46)
[2017-03-15] MEDS: Labetalol TAB* 200 MG PO SCH ×2 (08:47→19:40)
[2017-03-15] MEDS: Sertraline* 25 MG TAB PO SCH (08:47)
[2017-03-15] MEDS: Metoprolol Tartrate TAB* 50 mg PO SCH ×2 (08:47→19:40)
[2017-03-15] MEDS: Montelukast Sodium TAB* 10 MG PO SCH (08:47)
[2017-03-15] MEDS: Diltiazem CD CAP* 240 MG PO SCH (08:47)
[2017-03-15] MEDS: Sevelamer TAB* 800 MG PO SCH ×3 (08:48→17:44)
[2017-03-15] MEDS ORDERED: cloNIDine TAB* 0.1 MG PO SCH (09:00)
[2017-03-15] MEDS: Sodium Polystyrene ORAL.SOL* 15 GM/60 ML BTL PO SCH ×2 (11:32→19:42)
--- NOTE | 2017-03-15 18:09 | PN ---
Subjective Date of Service: 03/15/17 Interval History: BP and HR continue to be better controlled. Pt on 2L oxygen at home, currently 3. Sleeping but then quite anxious appearing with reports of pleuritic pain worse with coughing. Additional records obtained by Dr. Sandoval from [facility]: pt with TAVR inside previous bioprosthetic AVR. Objective Active Medications: Alprazolam (Xanax Tab*) 0.25 mg PO TID PRN PRN Reason: ANXIETY Last Admin: 03/15/17 12:48 Dose: 0.25 mg Apixaban (Eliquis*) 5 mg PO 0900,2099 [facility] Last Admin: 03/15/17 08:46 Dose: 5 mg Aspirin (Aspirin Ec Low Dose*) 81 mg PO 0900 [facility] Last Admin: 03/15/17 08:46 Dose: 81 mg Cinacalcet (Sensipar Tab*) 90 mg PO 0900 [facility] Last Admin: 03/15/17 08:45 Dose: 90 mg Clonidine HCl (Catapres Tab*) 0.3 mg PO BID [facility] Diltiazem HCl (Cardizem Cd Cap*) 240 mg PO 0900 [facility] Last Admin: 03/15/17 08:47 Dose: 240 mg Diphenhydramine HCl (Benadryl Po*) 25 mg PO BEDTIME [facility] Last Admin: 03/14/17 21:34 Dose: 25 mg Hydralazine HCl (Apresoline Iv*) 5 mg IV SLOW PU Q6H PRN PRN Reason: BLOOD PRESSURE Last Admin: 03/14/17 07:09 Dose: 5 mg Labetalol HCl (Trandate Tab*) 200 mg PO 899,2099 [facility] Last Admin: 03/15/17 08:47 Dose: 200 mg Metoprolol Tartrate (Lopressor Iv*) 5 mg IV Q6H PRN PRN Reason: BLOOD PRESSURE Metoprolol Tartrate (Lopressor Tab*) 50 mg PO 00,2099 [facility] Last Admin: 03/15/17 08:47 Dose: 50 mg Mometasone Furoate/Formoterol Fumar (Dulera 200/5 Mdi*) 2 puff INH BID [facility] Last Admin: 03/15/17 08:22 Dose: 2 puff Montelukast Sodium (Singulair Tab*) 10 mg PO 0900 [facility] Last Admin: 03/15/17 08:47 Dose: 10 mg Morphine Sulfate (Morphine Inj (Syringe)*) 2 mg IV Q2H PRN PRN Reason: PAIN Last Admin: 03/15/17 17:45 Dose: 2 mg Nitroglycerin (Nitroglycerin 2% Oint*) 1 inch TOPICAL 0600,1200 [facility] PRN Reason: Protocol Last Admin: 03/15/17 12:55 Dose: 1 inch Ondansetron HCl (Zofran Inj*) 4 mg IV Q6H PRN PRN Reason: NAUSEA Oxycodone HCl (Roxycodone Tab*) 10 mg PO Q6H PRN PRN Reason: PAIN Last Admin: 03/14/17 18:46 Dose: 10 mg Pharmacy Profile Note (Nitro Patch/Oint Remove*) 1 note TOPICAL 2100 [facility] Last Admin: 03/14/17 21:38 Dose: 1 note Sertraline HCl (Zoloft*) 25 mg PO 0900 [facility] Last Admin: 03/15/17 08:47 Dose: 25 mg Sevelamer Carbonate (Renvela Tab*) 4,000 mg PO TID WITH MEALS [facility] Last Admin: 03/15/17 17:44 Dose: 4,000 mg Sodium Polystyrene Sulfonate (Kayexalate Oral.Tonya*) 15 gm PO BEDTIME [facility] Tiotropium [place] (Spiriva Cap.Inh*) 1 cap INH 0900 [facility] Last Admin: 03/15/17 08:21 Dose: 1 cap Vitamin E (Vitamin E Cap*) 400 unit PO 0900,2100 [facility] Last Admin: 03/15/17 08:46 Dose: 400 unit Vital Signs 03/14/17 03/14/17 03/14/17 18:46 19:44 20:00 Temperature 98.2 F Pulse Rate 71 Respiratory 20 22 20 Rate Blood Pressure 177/81 (mmHg) O2 Sat by Pulse 100 Oximetry 03/14/17 03/14/17 03/14/17 20:01 20:46 21:01 Temperature Pulse Rate Respiratory 20 20 20 Rate Blood Pressure (mmHg) O2 Sat by Pulse Oximetry 03/14/17 03/14/17 03/14/17 21:25 21:34 21:58 Temperature Pulse Rate 74 85 Respiratory 20 Rate Blood Pressure 183/130 152/108 (mmHg) O2 Sat by Pulse Oximetry 03/14/17 03/14/17 03/14/17 22:28 23:28 23:34 Temperature Pulse Rate Respiratory 20 18 18 Rate Blood Pressure (mmHg) O2 Sat by Pulse Oximetry 03/15/17 03/15/17 03/15/17 00:23 01:46 02:46 Temperature 97.9 F Pulse Rate 71 Respiratory 16 20 20 Rate Blood Pressure 137/85 (mmHg) O2 Sat by Pulse 100 Oximetry 03/15/17 03/15/17 03/15/17 03:46 03:59 04:18 Temperature 98.2 F 97.7 F Pulse Rate 65 65 Respiratory 20 20 20 Rate Blood Pressure 121/87 134/98 (mmHg) O2 Sat by Pulse 92 Oximetry 03/15/17 03/15/17 03/15/17 04:39 05:39 08:07 Temperature 97.9 F Pulse Rate 65 Respiratory 22 20 16 Rate Blood Pressure 123/75 (mmHg) O2 Sat by Pulse 100 Oximetry 03/15/17 03/15/17 03/15/17 08:32 08:40 09:40 Temperature Pulse Rate Respiratory 16 18 15 Rate Blood Pressure (mmHg) O2 Sat by Pulse Oximetry 03/15/17 03/15/17 03/15/17 10:41 11:05 11:41 Temperature 97.7 F Pulse Rate 68 Respiratory 16 12 14 Rate Blood Pressure 131/79 (mmHg) O2 Sat by Pulse 100 Oximetry 03/15/17 03/15/17 03/15/17 12:48 12:49 13:49 Temperature Pulse Rate Respiratory 15 18 14 Rate Blood Pressure (mmHg) O2 Sat by Pulse Oximetry 03/15/17 03/15/17 03/15/17 14:48 15:18 16:07 Temperature 97.6 F Pulse Rate 60 Respiratory 16 18 16 Rate Blood Pressure 135/87 (mmHg) O2 Sat by Pulse 100 Oximetry 03/15/17 03/15/17 16:18 17:45 Temperature Pulse Rate Respiratory 15 18 Rate Blood Pressure (mmHg) O2 Sat by Pulse Oximetry Oxygen Devices in Use Now: Nasal Cannula Appearance: Asleep then relates distress 2/2 pleuritic pain. Eyes: No Scleral Icterus, PERRLA Neck: NL Appearance and Movements; NL JVP Respiratory: - - exam limited by pleuritic pain. no rhonchi. Cardiovascular: - - irregulary irregular, rates controlled, MYRNA 2/6 LUSB, no rubs or gallops. Abdominal: NL Sounds; No Tenderness; No Distention, No Hepatosplenomegaly Extremities: No Edema Skin: No Rash or Ulcers, No Nodules or Sclerosis Neurological: Alert and Oriented x 3, NL Muscle Strength and Tone Result Diagrams: 03/14/17 06:07 03/14/17 06:07 Additional Lab and Data: Laboratory Last Values WBC 4.7 10^3/ul (3.5-10.8) 03/14/17 06:07 RBC 2.55 10^6/ul (4.0-5.4) L 03/14/17 06:07 Hgb 8.8 g/dl (12.0-16.0) L 03/14/17 06:07 Hct 26 % (35-47) L 03/14/17 06:07 MCV 104 fL (80-97) H 03/14/17 06:07 MCH 35 pg (27-31) H 03/14/17 06:07 MCHC 33 g/dl (31-36) 03/14/17 06:07 RDW 18 % (10.5-15) H 03/14/17 06:07 Plt Count 164 10^3/ul (150-450) 03/14/17 06:07 MPV 9 um3 (7.4-10.4) 03/14/17 06:07 Neut % (Auto) 67.4 % (38-83) 03/14/17 06:07 Lymph % (Auto) 16.9 % (25-47) L 03/14/17 06:07 [place] % (Auto) 12.2 % (1-9) H 03/14/17 06:07 Eos % (Auto) 3.1 % (0-6) 03/14/17 06:07 Baso % (Auto) 0.4 % (0-2) 03/14/17 06:07 Absolute Neuts (auto) 3.2 10^3/ul (1.5-7.7) 03/14/17 06:07 Absolute Lymphs (auto) 0.8 10^3/ul (1.0-4.8) L 03/14/17 06:07 Absolute Monos (auto) 0.6 10^3/ul (0-0.8) 03/14/17 06:07 Absolute Eos (auto) 0.1 10^3/ul (0-0.6) 03/14/17 06:07 Absolute Basos (auto) 0 10^3/ul (0-0.2) 03/14/17 06:07 Absolute Nucleated RBC 0.05 10^3/ul 03/14/17 06:07 Nucleated RBC % 1.0 03/14/17 06:07 INR (Anticoag Therapy) 0.95 (0.89-1.11) 03/13/17 02:20 APTT 29.7 seconds (26.0-36.3) 03/13/17 02:20 Sodium 134 mmol/L (133-145) 03/14/17 06:07 Potassium 4.2 mmol/L (3.5-5.0) 03/14/17 06:07 Chloride 94 mmol/L (101-111) L 03/14/17 06:07 Carbon Dioxide 32 mmol/L (22-32) 03/14/17 06:07 Anion Gap 8 mmol/L (2-11) 03/14/17 06:07 BUN 35 mg/dL (6-24) H 03/14/17 06:07 Creatinine 6.56 mg/dL (0.51-0.95) H 03/14/17 06:07 Est GFR ( Amer) 8.8 (>60) 03/14/17 06:07 Est GFR (Non-Af Amer) 6.8 (>60) 03/14/17 06:07 BUN/Creatinine Ratio 5.3 (8-20) L 03/14/17 06:07 Glucose 111 mg/dL (70-100) H 03/14/17 06:07 Calcium 9.1 mg/dL (8.6-10.3) 03/14/17 06:07 Phosphorus 8.3 mg/dL (2.5-5.0) H 03/13/17 02:20 Magnesium 2.3 mg/dL (1.9-2.7) 03/13/17 02:20 Total Bilirubin 0.60 mg/dL (0.2-1.0) 03/13/17 02:20 Direct Bilirubin 0.10 mg/dL (0.03-0.18) 03/13/17 02:20 Indirect Bilirubin 0.5 mg/dL (0.3-1.0) 03/13/17 02:20 AST 22 U/L (13-39) 03/13/17 02:20 ALT 12 U/L (7-52) 03/13/17 02:20 Alkaline Phosphatase 75 U/L (34-104) 03/13/17 02:20 Troponin I 0.11 ng/mL (<0.04) H* 03/13/17 13:15 B-Natriuretic Peptide 2687 pg/mL (-100) H 03/13/17 02:20 Total Protein 6.4 g/dL (6.4-8.9) 03/13/17 02:20 Albumin 3.9 g/dL (3.2-5.2) 03/13/17 02:20 Globulin 2.5 g/dL (2-4) 03/13/17 02:20 Albumin/Globulin Ratio 1.6 (1-3) 03/13/17 02:20 Assess/Plan/Problems-Billing Assessment: 46 yo female PMH HTN, ESRD, Afib, COPD, s/p AVR with redo TAVR deployed within previous bioprosthetic valve May 2016, moderate MVR, EF 55-60%, chronic pain on opioids p/w hypertensive urgency, AFib with RVR, left sided pleuritic chest pain. GONZALEZ down to 0.8 cm^2, mean gradient 32.6mmHg from 1.1/27.2. Hypoxic Respiratory Failure 2/2 Hypertensive Urgency, Afib w/ RVR, diastolic CHF and worsening aortic valve area. - improved, continue metoprolol 40mg q12, dilt 240mg qam, labetalol 200mg q12, clonodine 0.3mg BID. have stopped amlodipine (as second CCB). Consider imdur or hydralazine and switch to coreg instead of metop + labetalol. However will await Cardiology recs. - will need close Cardiology f/u, not seen since May as outpatient despite attempts to arrange. - repeat ECHO with stable EF, improved TVR to moderate but worsening GONZALEZ, mean gradients - BNP 2687 initially Pleuritic Chest Pain (left) - persist after improvement in HTN urgency. CT Angio [facility] May 2016 demonstrated right PE. Has been on eliquis bid as outpatient - cardiology consulted - consider CTA to rule out another PE - morphine 2mg IV q2hr prn + outpatient oxycodone 10mg q6 (down from 15mg?), check ISTOP. - has chronic chest pains for which her outpatient opioids have been reduced - troponins 0.10, 0.09, 0.11 - pt actually with clean coronaries and NO stent placed per [place] records. Pt likely confused about TAVR deployment instead AFib w/ RVR, improved - continue vi blocking agents ?consolidate to coreg and dilt. Await cards recs - continue Eliquis BID - ? consideration for ablation with PPM as outpatient? ESRD - continue HD - sensipar 90mg daily - BMP daily COPD - spiriva daily - dulera 2 puffs bid - not currently wheezing Anxiety xanax 0.25mg TID prn CODE: FULL Status and Disposition: medicine inpatient, Awaiting cardiology consult Attending: Alexis David
[2017-03-15] MEDS ORDERED: Zolpidem TAB* 10 MG PO PRN (19:36)
[2017-03-15] MEDS: diPHENhydraMINE PO* 25 MG PO SCH (19:41)
[2017-03-15] MEDS: cloNIDine TAB* 0.1 MG PO SCH (19:41)
[2017-03-15] MEDS: Nitro Patch/OINT Remove TOPICAL SCH (22:49)
[2017-03-16] MEDS: Morphine INJ* 2 MG/ML 1 ML SYRINGE (TWO MG - NEW SYRINGE VERSION) IV PRN ×9 (00:59→21:38)
[2017-03-16] MEDS: Zolpidem TAB* 10 MG PO PRN ×2 (03:02→22:56)
--- NOTE | 2017-03-16 03:21 | CONS ---
CC: Dialysis Clinic, Dr. Osorio* CARDIOLOGY CONSULTATION: DATE OF CONSULT: 03/15/17 REASON FOR CONSULTATION: Chest pain and reestablish cardiology care for aortic valve replacement and chronic atrial fibrillation. HISTORY OF PRESENT ILLNESS: Juany Joseph is a 46-year-old woman with a past cardiac history of endocarditis of the aortic valve, abscess removal and aortic valve replacement several years ago, which stenosed at the end of 2015 and she underwent a TAVR implant in the existing prosthetic valve since 06/11/16. The patient additionally has chronic atrial fibrillation. She has longstanding severe hypertension and secondary end-stage renal disease on hypertension. The patient frequently presents to the hospital. This time she presented on with complaints of acute shortness of breath and in the emergency department she had pulmonary edema. She has been treated with BiPAP and dialysis. The patient's chief complaint today is chest pain. This was pleuritic in quality and was reproduced with deep breathing on her pulmonary exam. It is also positional and she says it keeps her from sleeping at night and is extremely debilitating in general. In reviewing old hospital notes which are copious, this is not an isolated or new problem; it is a recurrent problem. PAST MEDICAL HISTORY: 1. The patient has a past medical history of aortic valve endocarditis in 2012 , 2.5 cm vegetation on the aortic valve with severe aortic insufficiency, perivalvular abscess and gram-positive cocci growing in her blood. 2. 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 3. Chronic atrial fibrillation and on cath 05/31/16, there was no evidence of significant atherosclerosis of the coronary arteries. 4. The patient has longstanding hypertension. 5. End-stage renal disease, on chronic hemodialysis. 6. Severe left ventricular hypertrophy. 7. History of DVT's. 8. PE's. 9. Pulmonary hemorrhage, April 2016 with severe aortic stenosis. 10. Anemia of chronic disease. 11. Depression and anxiety. 12. Chronic recurrent congestive heart failure. MEDICATIONS: Current inpatient medications include: 1. Xanax p.r.n. 2. Eliquis 5 mg b.i.d. 3. Aspirin 81 mg a day. 4. Sensipar 90 mg a day. 5. Catapres 0.3 mg b.i.d. 6. Cardizem CD 240 mg a day. 7. Benadryl 25 mg q.h.s. 8. Hydralazine p.r.n. 9. Labetalol 200 mg b.i.d. 10. Lopressor 5 mg q.6 hours p.r.n. 11. Lopressor 50 mg b.i.d. 12. Formoterol inhaler. 13. Singulair inhaler. 14. Morphine sulfate. 15. Nitroglycerin ointment twice a day. 16. Zofran p.r.n. 17. Oxycodone p.r.n. 18. Zoloft 25 mg a day. 19. Renvela 4000 mg t.i.d. with meals. 20. Kayexalate 15 g q.h.s. 21. Spiriva inhaler one capsule daily. 22. Vitamin E. 23. Ambien 10 mg p.r.n. insomnia. ALLERGIES AND INTOLERANCES: Include VISIPAQUE DYE with airway obstruction, LISINOPRIL with shortness of breath, PENICILLIN hives, swelling and CEPHALOSPORINS. FAMILY HISTORY: Positive for hypertension. SOCIAL HISTORY: The patient continues to actively smoke, denies any recurrence of cocaine use. She is disabled. REVIEW OF SYSTEMS: Difficult to get. The patient denied any noncompliance with medications, changes in diet. She denies fevers or chills. She is a bit evasive on review of systems and was unable to be obtained completely. PHYSICAL EXAM: On exam, the patient is 5 feet 9 inches and weighs 184 pounds with a BMI of 27. Blood pressure 135/87, pulse was 60, respiratory rate was 16 , oxygen saturation 100% on nasal cannula. She is afebrile. General Appearance : Middle- aged woman seated at 45 degrees initially appeared comfortable watching TV, but clearly developed pain with respiratory exam. Psychologically, pleasant and cooperative, but tangential in her speech and again a difficult historian. Comprehension seems good. She follows commands well and no gross motor or sensory deficits on examination in hospital bed. Skin: Warm and dry. Prior surgical scars appear well healed. No cyanosis appreciated at the lips or nail beds. HEENT: Pupils are equal and round. Mucous membranes are moist. Neck without thyromegaly or lymphadenopathy appreciated. Breath sounds were mildly diminished, but no wheezing or rales heard and no rubs. It was clearly painful for her to take a deep breath. Coronary: S1 and S2 regular, 2-3/6 [id number] peaking systolic murmur heard in the right upper sternal border. No diastolic murmur appreciated. Systolic murmur radiates across to the left sternal border. Abdomen: Mildly distended, active bowel sounds, soft, nontender. Lower extremities were warm and appeared well perfused. DIAGNOSTIC STUDIES/LAB DATA: White count 4.7, hemoglobin 8.8, hematocrit 26, platelets 164,000 (hematocrit range 2017 is a high of 27 and low of 17). INR 0.95, PTT 29.7. Sodium 134, potassium 4.2, chloride 94, bicarb 32, BUN 35, creatinine 6.6 (improved) from BUN of 56 and creatinine 8.3 yesterday. Troponin #1 of 0.10, #2 of 0.09, #3 of 0.11. Brain natriuretic peptide 2687, improved from 4196 in December 2016. Her lowest value this year was in July of 857. 1. Chest x-ray from 03/13/17 consistent with pulmonary edema. ECG on 03/13/17 shows atrial fibrillation with a rapid ventricular rate of 160 beats per minute. QRS axis +60, normal intraventricular conduction x4, R-wave progression V1 through V3. When compared with her most recent EKG of 12/31/16, the ventricular rate is much faster, it is otherwise not significantly changed. 2. Echocardiogram from 03/13/17, showed severe left ventricular hypertrophy with an ejection fraction of 55% to 60%. Severe biatrial enlargement 3. Bioprosthetic #23 DRAKE valve noted inside the prior bioprosthetic valve, mean gradient across the valve was 33 mmHg, [id number] mitral stenosis, moderate tricuspid insufficiency. Evidence of mild mitral stenosis with a mean gradient of 5.3 and mitral valve area by pressure half time was 5 cm where by continuity equation, it was 2 cm squared. PA pressure estimated at 42 mmHg. No significant pericardial effusion noted. MRI of the chest on 11/11/16 showed no primary or secondary signs of superior vena cava syndrome, cardiomegaly noted. No pericardial effusion. Abdomen and pelvic CT from 09/13/16 showed atrophic kidneys, bilateral atelectasis, bilateral small pleural effusions left greater than right, atherosclerotic aorta with aneurysmal dilatation of the left common iliac 2.2 cm and [id number] amount of free fluid in the pelvis. ASSESSMENT AND PLAN: In summary, Juany Joseph is a complex 46-year-old woman who presented to the hospital in decompensated congestive heart failure that appears to be related to fluid overload and was responsive to BiPAP and dialysis. The etiology of her recurrent congestive heart failure is likely a combination of her hypertensive heart disease with a fixed stiff heart (diastolic dysfunction), her small sized prosthetic aortic valve, her renal insufficiency and in the past there have been contributions of lifestyle and noncompliance that have contributed and they have contributed again. The patient's chief complaint now is pleuritic chest pain that might be related to congestive heart failure and pleuropericardial irritation or inflammation. Other possibilities might include bronchospasm from her beta-blockers, but it could be difficult to lower her beta-clara dose and still obtain adequate blood pressure control. I think if we attempt to change her antihypertensive regimen it should be done so either by Dr. Osorio or in coordination with Dr. Osorio. Another possibility would be an inflammatory process, possibly chronic related to dialysis or failure. It might make sense to check inflammatory profile such as C- reactive protein or sedimentation rate. If these are abnormal, perhaps a medication such as colchicine might provide symptomatic relief. I agree with utilization of nitrates in the interim. I do not feel that this likely represents significant underlying atherosclerotic heart disease. The patient has had a heart catheterization in May 2016 that showed normal coronary arteries. She underwent a recent stress test on 11/05/16 that did not show evidence of significant inducible ischemia. This test showed an ejection fraction of 33% and [id number] size area of ischemia in the anterior wall. Elevated troponins could be from small vessel disease or stress or demand ischemia from the left ventricular hypertrophy and tachycardic response with hypoxia. It is possible that with her chronic atrial fibrillation if her anticoagulation is suboptimal that she could have embolic-induced myocardial ischemia, but I still doubt that this accounts for her pleuritic discomfort. I will review her cardiac evaluation in October, but at this point in time I am not recommending cardiac catheterization, but as above, we will check inflammatory profiles. Juany Joseph is going to continue to be a difficult patient to manage in terms of fluid status with her severe left ventricular hypertrophy and small bioprosthetic aortic valve replacement. Thank you for allowing me to assist in this complex woman's care. [id number] #: [id number] SHI
[2017-03-16] MEDS: Nitroglycerin 2% OINT* 1 GM PAK TOPICAL SCH ×2 (05:41→12:50)
[2017-03-16] MEDS: Mometasone/Formoter 200/5 MDI INH SCH ×2 (07:36→19:49)
[2017-03-16] MEDS: Tiotropium CAP.INH* CAP.INH/18 MCG (USE ORDER SET !) INH SCH (07:36)
[2017-03-16] MEDS: Sevelamer TAB* 800 MG PO SCH ×3 (08:04→17:50)
[2017-03-16] MEDS: Apixaban* 5 MG TAB PO SCH ×2 (08:05→20:35)
[2017-03-16] MEDS: Metoprolol Tartrate TAB* 50 mg PO SCH ×2 (08:06→20:42)
[2017-03-16] MEDS: Cinacalcet TAB* 30 MG PO SCH (08:06)
[2017-03-16] MEDS: Diltiazem CD CAP* 240 MG PO SCH (08:07)
[2017-03-16] MEDS: Labetalol TAB* 200 MG PO SCH ×2 (08:07→20:43)
[2017-03-16] MEDS: Montelukast Sodium TAB* 10 MG PO SCH (08:07)
[2017-03-16] MEDS: Sertraline* 25 MG TAB PO SCH (08:07)
[2017-03-16] MEDS: cloNIDine TAB* 0.1 MG PO SCH ×2 (08:08→20:34)
[2017-03-16] MEDS: Aspirin EC Low Dose* 81 MG TAB.EC PO SCH (08:14)
[2017-03-16] MEDS: Vitamin E CAP* 400 UNIT PO SCH ×2 (08:14→20:34)
[2017-03-16] MEDS: ALPRAZolam TAB* 0.25 MG PO PRN ×2 (08:14→17:50)
[2017-03-16 10:15] LABS: Hematocrit 27 % (35-47); Mean Corpuscular HGB Conc 34 g/dl (31-36); Mean Corpuscular Hemoglobin 35 pg (27-31); Mean Corpuscular Volume 104 fL (80-97); Mean Platelet Volume 9 um3 (7.4-10.4); Red Blood Count 2.55 10^6/ul (4.0-5.4); Red Cell Distribution Width 19 % (10.5-15); White Blood Count 4.8 10^3/ul (3.5-10.8)
--- NOTE | 2017-03-16 10:26 | PN ---
Subjective Date of Service: 03/16/17 Interval History: HOSPITALIST PROGRESS NOTE Patient seen and examined at bedside. She still c/o left sided chest pain radiating to her axilla, but states this is better than on admission. Family History: Unchanged from Admission Social History: Unchanged from Admission Past Medical History: Unchanged from Admission Objective Active Medications: Alprazolam (Xanax Tab*) 0.25 mg PO TID PRN PRN Reason: ANXIETY Last Admin: 03/16/17 08:14 Dose: 0.25 mg Apixaban (Eliquis*) 5 mg PO 0900,2099 [facility] Last Admin: 03/16/17 08:05 Dose: 5 mg Aspirin (Aspirin Ec Low Dose*) 81 mg PO 0900 [facility] Last Admin: 03/16/17 08:14 Dose: 81 mg Cinacalcet (Sensipar Tab*) 90 mg PO 0900 [facility] Last Admin: 03/16/17 08:06 Dose: 90 mg Clonidine HCl (Catapres Tab*) 0.3 mg PO BID [facility] Last Admin: 03/16/17 08:08 Dose: 0.3 mg Diltiazem HCl (Cardizem Cd Cap*) 240 mg PO 0900 [facility] Last Admin: 03/16/17 08:07 Dose: 240 mg Diphenhydramine HCl (Benadryl Po*) 25 mg PO BEDTIME [facility] Last Admin: 03/15/17 19:41 Dose: 25 mg Hydralazine HCl (Apresoline Iv*) 5 mg IV SLOW PU Q6H PRN PRN Reason: BLOOD PRESSURE Last Admin: 03/14/17 07:09 Dose: 5 mg Labetalol HCl (Trandate Tab*) 200 mg PO 899,2099 [facility] Last Admin: 03/16/17 08:07 Dose: 200 mg Metoprolol Tartrate (Lopressor Iv*) 5 mg IV Q6H PRN PRN Reason: BLOOD PRESSURE Metoprolol Tartrate (Lopressor Tab*) 50 mg PO 0900,2099 [facility] Last Admin: 03/16/17 08:06 Dose: 50 mg Mometasone Furoate/Formoterol Fumar (Dulera 200/5 Mdi*) 2 puff INH BID [facility] Last Admin: 03/16/17 07:36 Dose: 2 puff Montelukast Sodium (Singulair Tab*) 10 mg PO 0900 [facility] Last Admin: 03/16/17 08:07 Dose: 10 mg Morphine Sulfate (Morphine Inj (Syringe)*) 2 mg IV Q1H PRN PRN Reason: SEVERE PAIN Last Admin: 03/16/17 10:24 Dose: 2 mg Nitroglycerin (Nitroglycerin 2% Oint*) 1 inch TOPICAL 0600,1200 [facility] PRN Reason: Protocol Last Admin: 03/16/17 05:41 Dose: 1 inch Ondansetron HCl (Zofran Inj*) 4 mg IV Q6H PRN PRN Reason: NAUSEA Oxycodone HCl (Roxycodone Tab*) 10 mg PO Q6H PRN PRN Reason: PAIN Last Admin: 03/14/17 18:46 Dose: 10 mg Pharmacy Profile Note (Nitro Patch/Oint Remove*) 1 note TOPICAL 2100 [facility] Last Admin: 03/15/17 22:49 Dose: 1 note Sertraline HCl (Zoloft*) 25 mg PO 0900 [facility] Last Admin: 03/16/17 08:07 Dose: 25 mg Sevelamer Carbonate (Renvela Tab*) 4,000 mg PO TID WITH MEALS [facility] Last Admin: 03/16/17 08:04 Dose: 4,000 mg Sodium Polystyrene Sulfonate (Kayexalate Oral.Tonya*) 15 gm PO BEDTIME [facility] Last Admin: 03/15/17 19:42 Dose: 15 gm Tiotropium [place] (Spiriva Cap.Inh*) 1 cap INH 0900 [facility] Last Admin: 03/16/17 07:36 Dose: 1 cap Vitamin E (Vitamin E Cap*) 400 unit PO 0900,2100 [facility] Last Admin: 03/16/17 08:14 Dose: 400 unit Zolpidem Tartrate (Ambien Tab*) 5 mg PO BEDTIME PRN PRN Reason: INSOMNIA Last Admin: 03/16/17 03:02 Dose: 5 mg Vital Signs 03/16/17 03/16/17 03/16/17 04:18 07:52 08:14 Temperature 97.4 F Pulse Rate 60 Respiratory 18 24 18 Rate Blood Pressure 130/87 (mmHg) O2 Sat by Pulse 100 Oximetry Oxygen Devices in Use Now: Nasal Cannula - 3 liters Appearance: Pleasant lady sitting up in bed in NAD. Eyes: No Scleral Icterus Ears/Nose/Mouth/Throat: Mucous Membranes Moist Neck: Trachea Midline Respiratory: Symmetrical Chest Expansion and Respiratory Effort, Clear to Auscultation Cardiovascular: RRR - Normal S1 and S2, +SM Extremities: No Edema Neurological: Alert and Oriented x 3, NL Muscle Strength and Tone Lines/Tubes/Other Access: Clean, Dry and Intact Peripheral IV Nutrition: Taking PO's Result Diagrams: 03/16/17 10:07 03/16/17 10:07 Assess/Plan/Problems-Billing Assessment: Mrs. Joseph is a 46 yo female with PMH of HTN, ESRD, Afib, COPD, s/p AVR with redo TAVR deployed within previous bioprosthetic valve May 2016, moderate MVR, EF 55- 60%, chronic pain on opioids who presented to ED with c/o shortness of breath and chest pain, found to have hypertensive urgency, AFib with RVR. - Patient Problems (1) Acute hypoxemic respiratory failure Comment: - Secondary to Hypertensive Urgency, Afib w/ RVR, diastolic CHF and worsening aortic valve area. - BP is better controlled today. - Continue metoprolol, diltiazem, labetalol, clonidine, nitro. - will need close Cardiology f/u, plan to resume outpatient care with Dr. Horvath. (2) Chest pain Comment: - CT Angio [facility] May 2016 demonstrated right PE. Has been on eliquis bid as outpatient - ACS ruled out. - Will check V/Q scan. - Suspect a component of musculoskeletal pain - will try Lidoderm patch to the area. - Continue pain management. - Patient with clean coronaries and NO stent placed per [facility] records. Pt likely confused about TAVR deployment instead. - Cardiology input appreciated - will consider addition of colchicine for possible pleural/pericardial inflammation component. (3) Atrial fibrillation with RVR Comment: - Rate is better controlled now. - Continue beta-blockers and CCB. - Anticoagulation with Eliquis. (4) End stage renal disease on dialysis Comment: - Continue dyalisis as scheduled. (5) DVT prophylaxis Comment: - Eliquis. (6) Full code status Status and Disposition: Inpatient.
[2017-03-16 10:28] LABS: BUN/Creatinine Ratio 5.8 (8-20); Calcium 8.6 mg/dL (8.6-10.3); EGFR African American 6.9 (>60); EGFR Non-African American 5.3 (>60); Magnesium 2.4 mg/dL (1.9-2.7); Potassium 4.3 mmol/L (3.5-5.0)
--- NOTE | 2017-03-16 15:29 | PN ---
Subjective Date of Service: 03/16/17 - CC: pleuritic CP Interval History: Patient has persistent pain in chest and axilla. No new c/o, breathing is better. Medications Active Medications: Alprazolam (Xanax Tab*) 0.25 mg PO TID PRN PRN Reason: ANXIETY Last Admin: 03/16/17 08:14 Dose: 0.25 mg Apixaban (Eliquis*) 5 mg PO 0900,2100 [facility] Last Admin: 03/16/17 08:05 Dose: 5 mg Aspirin (Aspirin Ec Low Dose*) 81 mg PO 0900 [facility] Last Admin: 03/16/17 08:14 Dose: 81 mg Cinacalcet (Sensipar Tab*) 90 mg PO 0900 [facility] Last Admin: 03/16/17 08:06 Dose: 90 mg Clonidine HCl (Catapres Tab*) 0.3 mg PO BID [facility] Last Admin: 03/16/17 08:08 Dose: 0.3 mg Diltiazem HCl (Cardizem Cd Cap*) 240 mg PO 0900 [facility] Last Admin: 03/16/17 08:07 Dose: 240 mg Diphenhydramine HCl (Benadryl Po*) 25 mg PO BEDTIME [facility] Last Admin: 03/15/17 19:41 Dose: 25 mg Hydralazine HCl (Apresoline Iv*) 5 mg IV SLOW PU Q6H PRN PRN Reason: BLOOD PRESSURE Last Admin: 03/14/17 07:09 Dose: 5 mg Labetalol HCl (Trandate Tab*) 200 mg PO 0900,2100 [facility] Last Admin: 03/16/17 08:07 Dose: 200 mg Metoprolol Tartrate (Lopressor Iv*) 5 mg IV Q6H PRN PRN Reason: BLOOD PRESSURE Metoprolol Tartrate (Lopressor Tab*) 50 mg PO 0900,2100 [facility] Last Admin: 03/16/17 08:06 Dose: 50 mg Mometasone Furoate/Formoterol Fumar (Dulera 200/5 Mdi*) 2 puff INH BID [facility] Last Admin: 03/16/17 07:36 Dose: 2 puff Montelukast Sodium (Singulair Tab*) 10 mg PO 0900 [facility] Last Admin: 03/16/17 08:07 Dose: 10 mg Morphine Sulfate (Morphine Inj (Syringe)*) 2 mg IV Q1H PRN PRN Reason: SEVERE PAIN Last Admin: 03/16/17 14:36 Dose: 2 mg Nitroglycerin (Nitroglycerin 2% Oint*) 1 inch TOPICAL 0600,1200 [facility] PRN Reason: Protocol Last Admin: 03/16/17 12:50 Dose: 1 inch Ondansetron HCl (Zofran Inj*) 4 mg IV Q6H PRN PRN Reason: NAUSEA Last Admin: 03/16/17 14:36 Dose: 4 mg Oxycodone HCl (Roxycodone Tab*) 10 mg PO Q6H PRN PRN Reason: PAIN Last Admin: 03/14/17 18:46 Dose: 10 mg Pharmacy Profile Note (Nitro Patch/Oint Remove*) 1 note TOPICAL 2100 [facility] Last Admin: 03/15/17 22:49 Dose: 1 note Sertraline HCl (Zoloft*) 25 mg PO 0900 [facility] Last Admin: 03/16/17 08:07 Dose: 25 mg Sevelamer Carbonate (Renvela Tab*) 4,000 mg PO TID WITH MEALS [facility] Last Admin: 03/16/17 12:49 Dose: 4,000 mg Sodium Polystyrene Sulfonate (Kayexalate Oral.Tonya*) 15 gm PO BEDTIME [facility] Last Admin: 03/15/17 19:42 Dose: 15 gm Tiotropium [place] (Spiriva Cap.Inh*) 1 cap INH 0900 [facility] Last Admin: 03/16/17 07:36 Dose: 1 cap Vitamin E (Vitamin E Cap*) 400 unit PO 0900,2100 [facility] Last Admin: 03/16/17 08:14 Dose: 400 unit Zolpidem Tartrate (Ambien Tab*) 5 mg PO BEDTIME PRN PRN Reason: INSOMNIA Last Admin: 03/16/17 03:02 Dose: 5 mg Objective Vital Signs: Temp Pulse Resp BP Pulse Ox 97.4 F 62 16 147/91 100 03/16/17 07:52 03/16/17 11:34 03/16/17 14:36 03/16/17 11:34 03/16/17 11:34 Oxygen Devices in Use Now: Nasal Cannula Appearance: Moderately overweight female, lying at 30 degrees, no acute distress. Eyes: PERRLA Ears/Nose/Mouth/Throat: Clear Oropharnyx, Mucous Membranes Moist Neck: NL Appearance and Movements; NL JVP Respiratory: Symmetrical Chest Expansion and Respiratory Effort, Clear to Auscultation Cardiovascular: RRR - 2-3/6 systolic murmur sternal border with respiratory variation. CP reproduced with both deep breaths but exquisitly tender to light touch in the axilla again today. Abdominal: NL Sounds; No Tenderness; No Distention Extremities: No Edema, No Clubbing, Cyanosis Skin: No Rash or Ulcers Neurological: Alert and Oriented x 3, NL Muscle Strength and Tone Laboratory Results: 03/16/17 10:07 03/16/17 10:07 INR (Anticoag Therapy) 0.95 (0.89-1.11) 03/13/17 02:20 APTT 29.7 seconds (26.0-36.3) 03/13/17 02:20 Total Bilirubin 0.60 mg/dL (0.2-1.0) 03/13/17 02:20 Direct Bilirubin 0.10 mg/dL (0.03-0.18) 03/13/17 02:20 Indirect Bilirubin 0.5 mg/dL (0.3-1.0) 03/13/17 02:20 AST 22 U/L (13-39) 03/13/17 02:20 ALT 12 U/L (7-52) 03/13/17 02:20 Alkaline Phosphatase 75 U/L (34-104) 03/13/17 02:20 B-Natriuretic Peptide 2687 pg/mL (-100) H 03/13/17 02:20 Total Protein 6.4 g/dL (6.4-8.9) 03/13/17 02:20 Albumin 3.9 g/dL (3.2-5.2) 03/13/17 02:20 Globulin 2.5 g/dL (2-4) 03/13/17 02:20 Albumin/Globulin Ratio 1.6 (1-3) 03/13/17 02:20 03/13/17 03/13/17 09:08 13:15 Troponin I 0.09 H* 0.11 H* Laboratory Results - last 24 hr 03/15/17 03/15/17 03/16/17 23:35 23:35 10:07 WBC 4.8 RBC 2.55 L Hgb 9.0 L Hct 27 L MCV 104 H MCH 35 H MCHC 34 RDW 19 H Plt Count 168 MPV 9 Neut % (Auto) 68.6 Lymph % (Auto) 15.7 L [place] % (Auto) 10.1 H Eos % (Auto) 2.6 Baso % (Auto) 3.0 H Absolute Neuts (auto) 3.3 Absolute Lymphs (auto) 0.8 L Absolute Monos (auto) 0.5 Absolute Eos (auto) 0.1 Absolute Basos (auto) 0.1 Absolute Nucleated RBC 0.01 Nucleated RBC % 0.3 ESR 29 H Sodium Potassium Chloride Carbon Dioxide Anion Gap BUN Creatinine Est GFR ( Amer) Est GFR (Non-Af Amer) BUN/Creatinine Ratio Glucose Calcium Magnesium C-Reactive Protein 9.77 H Assessment/Plan Complex 46 yo female with #23 Ed. 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 Now with pleuritic and positional CP and mild elevation of troponins and acute profound SOB has resolved with urgent dialysis. See consult note for additional details of complex PMHx. CP Mild elevation in ESR/CRP, could try colchicine (and stop lactulose or decrease) and see if improvement. ? neuropathic component, consider medications for this such as amitryptiline, neurontin, lidocaine patch. Should f/u with me at [facility] office on discharge.
[2017-03-16] MEDS ORDERED: PROCHLORPERAZINE INJ 5 MG/ML 2 ML VIAL IV PRN (15:46)
[2017-03-16] MEDS: Lidocaine PATCH 5%* 1 PATCH TRANSDERM SCH (16:24)
[2017-03-16] MEDS: Ondansetron INJ* 2 MG/ML VIAL IV PRN (19:16)
[2017-03-16] MEDS: Nitro Patch/OINT Remove TOPICAL SCH (20:35)
[2017-03-16] MEDS: diPHENhydraMINE PO* 25 MG PO SCH (20:35)
[2017-03-16] MEDS: Lidocaine Patch REMOVE* 1 NOTE MISC SCH (20:35)
[2017-03-16] MEDS: Sodium Polystyrene ORAL.SOL* 15 GM/60 ML BTL PO SCH (20:36)
[2017-03-17] MEDS: Morphine INJ* 2 MG/ML 1 ML SYRINGE (TWO MG - NEW SYRINGE VERSION) IV PRN ×9 (01:05→22:15)
[2017-03-17] MEDS: Nitroglycerin 2% OINT* 1 GM PAK TOPICAL SCH ×2 (04:49→12:03)
[2017-03-17] MEDS: Tiotropium CAP.INH* CAP.INH/18 MCG (USE ORDER SET !) INH SCH (08:48)
[2017-03-17] MEDS: Mometasone/Formoter 200/5 MDI INH SCH ×2 (08:48→20:29)
[2017-03-17] MEDS: Sevelamer TAB* 800 MG PO SCH ×3 (08:56→18:33)
[2017-03-17] MEDS: Aspirin EC Low Dose* 81 MG TAB.EC PO SCH (08:57)
[2017-03-17] MEDS: Vitamin E CAP* 400 UNIT PO SCH ×2 (08:57→22:15)
[2017-03-17] MEDS: cloNIDine TAB* 0.1 MG PO SCH ×2 (08:58→21:05)
[2017-03-17] MEDS: Metoprolol Tartrate TAB* 50 mg PO SCH ×2 (08:58→21:06)
[2017-03-17] MEDS: Sertraline* 25 MG TAB PO SCH (08:59)
[2017-03-17] MEDS: Labetalol TAB* 200 MG PO SCH ×2 (08:59→21:06)
[2017-03-17] MEDS: Apixaban* 5 MG TAB PO SCH ×2 (09:00→21:43)
[2017-03-17] MEDS: Montelukast Sodium TAB* 10 MG PO SCH (09:00)
[2017-03-17] MEDS: Lidocaine PATCH 5%* 1 PATCH TRANSDERM SCH (09:01)
[2017-03-17] MEDS: Diltiazem CD CAP* 240 MG PO SCH (09:07)
[2017-03-17] MEDS: Cinacalcet TAB* 30 MG PO SCH (09:07)
--- NOTE | 2017-03-17 10:40 | RAD ---
HISTORY: Shortness of breath COMPARISONS: March 13, 2017 VIEWS: 4: Frontal dual-energy and lateral views of the chest. FINDINGS: CARDIOMEDIASTINAL SILHOUETTE: The cardiac silhouette is enlarged. The cardiomediastinal silhouette is otherwise normal. A prosthetic heart valve is noted OLEG: The oleg are normal. PLEURA: The costophrenic angles are sharp. No pleural abnormalities are noted. LUNG PARENCHYMA: There is patchy alveolar opacification of the right lung base ABDOMEN: The upper abdomen is clear. There is no subphrenic gas. BONES AND SOFT TISSUES: The patient is status post median sternotomy. OTHER: None. IMPRESSION: 1. CARDIOMEGALY. 2. PATCHY AIRSPACE DISEASE OF THE RIGHT LUNG BASE
--- NOTE | 2017-03-17 10:48 | RAD ---
HISTORY: Shortness of breath COMPARISON: Chest x-ray dated March 17, 2017, V/Q scan dated May 10, 2016 TECHNIQUE: Pulmonary ventilation/perfusion scintigraphy was performed with dynamic cine images and multiple planar images. DOSE: Ventilation: Xenon-133 10.5 millicuries, administered at 10:08 AM on March 17, 2017 Perfusion: Technetium 99m microaggregated albumin 6.6 millicuries, administered at 10:08 AM on March 17, 2017 FINDINGS: Ventilation: There is a defect of the posterior left lung, stable Perfusion: There is defect of the posterior left lung, stable. There is a stable defect of the inferior right lung.. IMPRESSION: 1. STABLE MATCHED DEFECT OF THE POSTERIOR LEFT LUNG. 2. STABLE UNMATCHED DEFECT OF THE INFERIOR RIGHT LUNG. 3. STABLE INTERMEDIATE PROBABILITY VQ SCAN CPT II Codes: 3570F
--- NOTE | 2017-03-17 13:56 | PN ---
Subjective Date of Service: 03/17/17 Interval History: HOSPITALIST PROGRESS NOTE Patient seen and examined at bedside. She offers no new complaints today. Chest pain and dyspnea are unchanged. Family History: Unchanged from Admission Social History: Unchanged from Admission Past Medical History: Unchanged from Admission Objective Active Medications: Alprazolam (Xanax Tab*) 0.25 mg PO TID PRN PRN Reason: ANXIETY Last Admin: 03/16/17 17:50 Dose: 0.25 mg Apixaban (Eliquis*) 5 mg PO 00,2099 [facility] Last Admin: 03/17/17 09:00 Dose: 5 mg Aspirin (Aspirin Ec Low Dose*) 81 mg PO 0900 [facility] Last Admin: 03/17/17 08:57 Dose: 81 mg Cinacalcet (Sensipar Tab*) 90 mg PO 0900 [facility] Last Admin: 03/17/17 09:07 Dose: 90 mg Clonidine HCl (Catapres Tab*) 0.3 mg PO BID [facility] Last Admin: 03/17/17 08:58 Dose: 0.3 mg Colchicine (Colcrys*) 0.6 mg PO DAILY [facility] Diltiazem HCl (Cardizem Cd Cap*) 240 mg PO 0900 [facility] Last Admin: 03/17/17 09:07 Dose: 240 mg Diphenhydramine HCl (Benadryl Po*) 25 mg PO BEDTIME [facility] Last Admin: 03/16/17 20:35 Dose: 25 mg Hydralazine HCl (Apresoline Iv*) 5 mg IV SLOW PU Q6H PRN PRN Reason: BLOOD PRESSURE Last Admin: 03/14/17 07:09 Dose: 5 mg Labetalol HCl (Trandate Tab*) 200 mg PO 899,2099 [facility] Last Admin: 03/17/17 08:59 Dose: 200 mg Lidocaine (Lidoderm 5% Patch*) 1 patch TRANSDERM DAILY [facility] Last Admin: 03/17/17 09:01 Dose: 1 patch Metoprolol Tartrate (Lopressor Iv*) 5 mg IV Q6H PRN PRN Reason: BLOOD PRESSURE Metoprolol Tartrate (Lopressor Tab*) 50 mg PO 0900,2099 [facility] Last Admin: 03/17/17 08:58 Dose: 50 mg Mometasone Furoate/Formoterol Fumar (Dulera 200/5 Mdi*) 2 puff INH BID [facility] Last Admin: 03/17/17 08:48 Dose: 2 puff Montelukast Sodium (Singulair Tab*) 10 mg PO 0900 [facility] Last Admin: 03/17/17 09:00 Dose: 10 mg Morphine Sulfate (Morphine Inj (Syringe)*) 2 mg IV Q1H PRN PRN Reason: SEVERE PAIN Last Admin: 03/17/17 13:45 Dose: 2 mg Nitroglycerin (Nitroglycerin 2% Oint*) 1 inch TOPICAL 0600,1200 [facility] PRN Reason: Protocol Last Admin: 03/17/17 12:03 Dose: 1 inch Ondansetron HCl (Zofran Inj*) 4 mg IV Q4H PRN PRN Reason: NAUSEA Last Admin: 03/16/17 19:16 Dose: 4 mg Oxycodone HCl (Roxycodone Tab*) 10 mg PO Q6H PRN PRN Reason: PAIN Last Admin: 03/14/17 18:46 Dose: 10 mg Pharmacy Profile Note (Nitro Patch/Oint Remove*) 1 note TOPICAL 2099 [facility] Last Admin: 03/16/17 20:35 Dose: 1 note Pharmacy Profile Note (Lidocaine Patch Remove*) 1 note N/A 2099 [facility] Last Admin: 03/16/17 20:35 Dose: 1 note Prochlorperazine Edisylate (Compazine Inj*) 5 mg IV Q6H PRN PRN Reason: NAUSEA/VOMITING Last Admin: 03/16/17 16:25 Dose: 5 mg Sertraline HCl (Zoloft*) 25 mg PO 0900 [facility] Last Admin: 03/17/17 08:59 Dose: 25 mg Sevelamer Carbonate (Renvela Tab*) 4,000 mg PO TID WITH MEALS [facility] Last Admin: 03/17/17 12:04 Dose: 4,000 mg Sodium Polystyrene Sulfonate (Kayexalate Oral.Tonya*) 15 gm PO BEDTIME [facility] Last Admin: 03/16/17 20:36 Dose: 15 gm Tiotropium [place] (Spiriva Cap.Inh*) 1 cap INH 0900 [facility] Last Admin: 03/17/17 08:48 Dose: 1 cap Vitamin E (Vitamin E Cap*) 400 unit PO 0900,2100 [facility] Last Admin: 03/17/17 08:57 Dose: 400 unit Zolpidem Tartrate (Ambien Tab*) 5 mg PO BEDTIME PRN PRN Reason: INSOMNIA Last Admin: 03/16/17 22:56 Dose: 5 mg Vital Signs 03/17/17 03/17/17 11:11 13:45 Temperature 97.4 F Pulse Rate 71 Respiratory 20 18 Rate Blood Pressure 144/91 (mmHg) O2 Sat by Pulse Oximetry Oxygen Devices in Use Now: Nasal Cannula - 3 liters Appearance: Pleasant lady lying in bed in NAD. Eyes: No Scleral Icterus Ears/Nose/Mouth/Throat: Mucous Membranes Moist Neck: Trachea Midline Respiratory: Symmetrical Chest Expansion and Respiratory Effort, Clear to Auscultation Cardiovascular: - - Normal S1 and S2, irregularly irregular Abdominal: NL Sounds; No Tenderness; No Distention Neurological: Alert and Oriented x 3, NL Muscle Strength and Tone Lines/Tubes/Other Access: Clean, Dry and Intact Peripheral IV Nutrition: Taking PO's Result Diagrams: 03/16/17 10:07 03/16/17 10:07 Assess/Plan/Problems-Billing Assessment: Mrs. Joseph is a 46 yo female with PMH of HTN, ESRD, Afib, COPD, s/p AVR with redo TAVR deployed within previous bioprosthetic valve May 2016, moderate MVR, EF 55- 60%, chronic pain on opioids who presented to ED with c/o shortness of breath and chest pain, found to have hypertensive urgency, AFib with RVR. - Patient Problems (1) Acute hypoxemic respiratory failure Comment: - Secondary to Hypertensive Urgency, Afib w/ RVR, diastolic CHF and worsening aortic valve area. - BP is better controlled today. - Continue metoprolol, diltiazem, labetalol, clonidine, nitro. - will need close Cardiology f/u, plan to resume outpatient care with Dr. Horvath. (2) Chest pain Comment: - CT Angio [facility] May 2016 demonstrated right PE. Has been on eliquis bid as outpatient - ACS ruled out. - V/Q scan showed no new defects. - Suspect a component of musculoskeletal pain - continue Lidoderm patch to the area. - Continue pain management. - Patient with clean coronaries and NO stent placed per [facility] records. Pt likely confused about TAVR deployment instead. - Cardiology input appreciated - recommended addition of colchicine for possible pleural/pericardial inflammation component - patient willing to try it now. (3) Atrial fibrillation with RVR Comment: - Rate is better controlled now. - Continue beta-blockers and CCB. - Anticoagulation with Eliquis. (4) End stage renal disease on dialysis Comment: - Continue dyalisis as scheduled. (5) DVT prophylaxis Comment: - Eliquis. (6) Full code status Status and Disposition: Inpatient.
[2017-03-17] MEDS ORDERED: Heparin DIALYSIS ONLY(*) 1,000 UNITS/ML VIAL DIALYSIS ONE (15:00)
[2017-03-17] MEDS ORDERED: Epoetin Alfa* 10,000 UNITS/ML VIAL IV ONE (15:00)
[2017-03-17] MEDS: Colchicine* 0.6 MG TAB PO SCH (18:33)
[2017-03-17] MEDS: diPHENhydraMINE PO* 25 MG PO SCH (21:05)
[2017-03-17] MEDS: Lidocaine Patch REMOVE* 1 NOTE MISC SCH (21:47)
[2017-03-17] MEDS: Nitro Patch/OINT Remove TOPICAL SCH (21:47)
[2017-03-17] MEDS: Sodium Polystyrene ORAL.SOL* 15 GM/60 ML BTL PO SCH (22:15)
[2017-03-18] MEDS: Morphine INJ* 2 MG/ML 1 ML SYRINGE (TWO MG - NEW SYRINGE VERSION) IV PRN ×2 (02:03→08:16)
[2017-03-18] MEDS: Polyethylene Glycol 3350* 17 GM PACKET PO PRN (06:14)
[2017-03-18] MEDS: Nitroglycerin 2% OINT* 1 GM PAK TOPICAL SCH ×2 (06:15→12:27)
[2017-03-18] MEDS: Sevelamer TAB* 800 MG PO SCH ×3 (09:16→17:13)
[2017-03-18] MEDS: Apixaban* 5 MG TAB PO SCH ×2 (09:18→19:54)
[2017-03-18] MEDS: cloNIDine TAB* 0.1 MG PO SCH ×2 (09:18→19:55)
[2017-03-18] MEDS: Sertraline* 25 MG TAB PO SCH (09:18)
[2017-03-18] MEDS: Aspirin EC Low Dose* 81 MG TAB.EC PO SCH (09:18)
[2017-03-18] MEDS: Diltiazem CD CAP* 240 MG PO SCH (09:18)
[2017-03-18] MEDS: Vitamin E CAP* 400 UNIT PO SCH ×2 (09:18→19:55)
[2017-03-18] MEDS: Labetalol TAB* 200 MG PO SCH ×2 (09:18→19:54)
[2017-03-18] MEDS: Metoprolol Tartrate TAB* 50 mg PO SCH (09:18)
[2017-03-18] MEDS: Montelukast Sodium TAB* 10 MG PO SCH (09:18)
[2017-03-18] MEDS: Cinacalcet TAB* 30 MG PO SCH (09:18)
[2017-03-18] MEDS: Lidocaine PATCH 5%* 1 PATCH TRANSDERM SCH (09:20)
[2017-03-18] MEDS: Mometasone/Formoter 200/5 MDI INH SCH ×2 (09:21→20:21)
[2017-03-18] MEDS: Tiotropium CAP.INH* CAP.INH/18 MCG (USE ORDER SET !) INH SCH (09:21)
[2017-03-18] MEDS: Colchicine* 0.6 MG TAB PO SCH (09:54)
[2017-03-18] MEDS ORDERED: oxyCODONE TAB* 5 MG TAB PO PRN (11:02)
[2017-03-18] MEDS ORDERED: Morphine INJ* 2 MG/ML 1 ML SYRINGE (TWO MG - NEW SYRINGE VERSION) IV PRN (11:03)
[2017-03-18] MEDS: oxyCODONE TAB* 5 MG TAB PO PRN ×2 (12:27→19:55)
[2017-03-18] MEDS ORDERED: Metoprolol Tartrate TAB* 25 MG PO ONE (15:32)
--- NOTE | 2017-03-18 15:46 | PN ---
Subjective Date of Service: 03/18/17 Interval History: C/O pain L flank/lower rib area. She did not get much pain relief with 10 mg oxycodone. Family History: Unchanged from Admission Social History: Unchanged from Admission Past Medical History: Unchanged from Admission Objective Active Medications: Alprazolam (Xanax Tab*) 0.25 mg PO TID PRN PRN Reason: ANXIETY Last Admin: 03/16/17 17:50 Dose: 0.25 mg Apixaban (Eliquis*) 5 mg PO 0900,2099 [facility] Last Admin: 03/18/17 09:18 Dose: 5 mg Aspirin (Aspirin Ec Low Dose*) 81 mg PO 0900 [facility] Last Admin: 03/18/17 09:18 Dose: 81 mg Cinacalcet (Sensipar Tab*) 90 mg PO 0900 [facility] Last Admin: 03/18/17 09:18 Dose: 90 mg Clonidine HCl (Catapres Tab*) 0.3 mg PO BID [facility] Last Admin: 03/18/17 09:18 Dose: 0.3 mg Colchicine (Colcrys*) 0.6 mg PO DAILY [facility] Last Admin: 03/18/17 09:54 Dose: 0.6 mg Diltiazem HCl (Cardizem Cd Cap*) 240 mg PO 0900 [facility] Last Admin: 03/18/17 09:18 Dose: 240 mg Diphenhydramine HCl (Benadryl Po*) 25 mg PO BEDTIME [facility] Last Admin: 03/17/17 21:05 Dose: 25 mg Hydralazine HCl (Apresoline Iv*) 5 mg IV SLOW PU Q6H PRN PRN Reason: BLOOD PRESSURE Last Admin: 03/14/17 07:09 Dose: 5 mg Labetalol HCl (Trandate Tab*) 200 mg PO 0900,2099 [facility] Last Admin: 03/18/17 09:18 Dose: 200 mg Lidocaine (Lidoderm 5% Patch*) 1 patch TRANSDERM DAILY [facility] Last Admin: 03/18/17 09:20 Dose: 1 patch Metoprolol Tartrate (Lopressor Iv*) 5 mg IV Q6H PRN PRN Reason: BLOOD PRESSURE Metoprolol Tartrate (Lopressor Tab*) 75 mg PO BID [facility] Mometasone Furoate/Formoterol Fumar (Dulera 200/5 Mdi*) 2 puff INH BID [facility] Last Admin: 03/18/17 09:21 Dose: 2 puff Montelukast Sodium (Singulair Tab*) 10 mg PO 0900 [facility] Last Admin: 03/18/17 09:18 Dose: 10 mg Ondansetron HCl (Zofran Inj*) 4 mg IV Q4H PRN PRN Reason: NAUSEA Last Admin: 03/16/17 19:16 Dose: 4 mg Oxycodone HCl (Roxycodone Tab*) 10 mg PO Q4H PRN PRN Reason: PAIN Oxycodone HCl (Roxycodone Tab*) 20 mg PO Q4H PRN PRN Reason: PAIN - SEVERE Pharmacy Profile Note (Nitro Patch/Oint Remove*) 1 note TOPICAL 2099 [facility] Last Admin: 03/17/17 21:47 Dose: 1 note Pharmacy Profile Note (Lidocaine Patch Remove*) 1 note N/A 2099 [facility] Last Admin: 03/17/17 21:47 Dose: 1 note Polyethylene Glycol/Electrolytes (Miralax*) 17 gm PO DAILY PRN PRN Reason: CONSTIPATION Last Admin: 03/18/17 06:14 Dose: 17 gm Prochlorperazine Edisylate (Compazine Inj*) 5 mg IV Q6H PRN PRN Reason: NAUSEA/VOMITING Last Admin: 03/16/17 16:25 Dose: 5 mg Sertraline HCl (Zoloft*) 25 mg PO 0900 [facility] Last Admin: 03/18/17 09:18 Dose: 25 mg Sevelamer Carbonate (Renvela Tab*) 4,000 mg PO TID WITH MEALS [facility] Last Admin: 03/18/17 12:26 Dose: 4,000 mg Sodium Polystyrene Sulfonate (Kayexalate Oral.Tonya*) 15 gm PO BEDTIME [facility] Last Admin: 03/17/17 22:15 Dose: 15 gm Tiotropium [place] (Spiriva Cap.Inh*) 1 cap INH 0900 [facility] Last Admin: 03/18/17 09:21 Dose: 1 cap Vitamin E (Vitamin E Cap*) 400 unit PO 0900,2099 [facility] Last Admin: 03/18/17 09:18 Dose: 400 unit Zolpidem Tartrate (Ambien Tab*) 5 mg PO BEDTIME PRN PRN Reason: INSOMNIA Last Admin: 03/16/17 22:56 Dose: 5 mg Vital Signs 03/17/17 03/17/17 03/17/17 15:59 18:28 19:30 Temperature 98.7 F Pulse Rate 66 Respiratory 18 16 18 Rate Blood Pressure 153/99 (mmHg) O2 Sat by Pulse 100 Oximetry 03/17/17 03/17/17 03/17/17 19:50 20:21 20:30 Temperature 98.0 F Pulse Rate 66 Respiratory 18 16 18 Rate Blood Pressure 134/83 (mmHg) O2 Sat by Pulse 92 Oximetry 03/17/17 03/17/17 03/17/17 21:05 22:15 23:05 Temperature Pulse Rate Respiratory 18 16 16 Rate Blood Pressure (mmHg) O2 Sat by Pulse Oximetry 03/17/17 03/18/17 03/18/17 23:15 00:44 02:03 Temperature 98.4 F Pulse Rate 76 Respiratory 16 20 18 Rate Blood Pressure 155/87 (mmHg) O2 Sat by Pulse 100 Oximetry 03/18/17 03/18/17 03/18/17 03:03 03:33 06:52 Temperature 98.5 F 98.6 F Pulse Rate 71 74 Respiratory 16 20 18 Rate Blood Pressure 134/89 156/98 (mmHg) O2 Sat by Pulse 100 100 Oximetry 03/18/17 03/18/17 03/18/17 08:00 08:16 09:16 Temperature Pulse Rate Respiratory 18 18 18 Rate Blood Pressure (mmHg) O2 Sat by Pulse Oximetry 03/18/17 03/18/17 03/18/17 10:00 11:27 12:27 Temperature 98.9 F Pulse Rate 66 71 Respiratory 20 20 Rate Blood Pressure 153/88 156/105 (mmHg) O2 Sat by Pulse 100 Oximetry 03/18/17 14:48 Temperature Pulse Rate Respiratory 20 Rate Blood Pressure (mmHg) O2 Sat by Pulse Oximetry Oxygen Devices in Use Now: Nasal Cannula Appearance: Alert, partly up in bed. Seems somewhat uncomfortable. Eyes: No Scleral Icterus Neck: NL Appearance and Movements; NL JVP, No Thyroid Enlargement, Masses Respiratory: Symmetrical Chest Expansion and Respiratory Effort, Clear to Auscultation, Clear to Percussion Cardiovascular: No Edema, - - 3-4/6 systolic murmur LSB to RSB. Extremities: No Edema, No Clubbing, Cyanosis, - Skin: No Rash or Ulcers, No Nodules or Sclerosis, - - L flank/lower rib area very tender to light touch. Neurological: Alert and Oriented x 3, NL Sensation Result Diagrams: 03/16/17 10:07 03/16/17 10:07 Additional Lab and Data: Laboratory Last Values WBC 4.7 10^3/ul (3.5-10.8) 03/14/17 06:07 RBC 2.55 10^6/ul (4.0-5.4) L 03/14/17 06:07 Hgb 8.8 g/dl (12.0-16.0) L 03/14/17 06:07 Hct 26 % (35-47) L 03/14/17 06:07 MCV 104 fL (80-97) H 03/14/17 06:07 MCH 35 pg (27-31) H 03/14/17 06:07 MCHC 33 g/dl (31-36) 03/14/17 06:07 RDW 18 % (10.5-15) H 03/14/17 06:07 Plt Count 164 10^3/ul (150-450) 03/14/17 06:07 MPV 9 um3 (7.4-10.4) 03/14/17 06:07 Neut % (Auto) 67.4 % (38-83) 03/14/17 06:07 Lymph % (Auto) 16.9 % (25-47) L 03/14/17 06:07 Wake % (Auto) 12.2 % (1-9) H 03/14/17 06:07 Eos % (Auto) 3.1 % (0-6) 03/14/17 06:07 Baso % (Auto) 0.4 % (0-2) 03/14/17 06:07 Absolute Neuts (auto) 3.2 10^3/ul (1.5-7.7) 03/14/17 06:07 Absolute Lymphs (auto) 0.8 10^3/ul (1.0-4.8) L 03/14/17 06:07 Absolute Monos (auto) 0.6 10^3/ul (0-0.8) 03/14/17 06:07 Absolute Eos (auto) 0.1 10^3/ul (0-0.6) 03/14/17 06:07 Absolute Basos (auto) 0 10^3/ul (0-0.2) 03/14/17 06:07 Absolute Nucleated RBC 0.05 10^3/ul 03/14/17 06:07 Nucleated RBC % 1.0 03/14/17 06:07 INR (Anticoag Therapy) 0.95 (0.89-1.11) 03/13/17 02:20 APTT 29.7 seconds (26.0-36.3) 03/13/17 02:20 Sodium 134 mmol/L (133-145) 03/14/17 06:07 Potassium 4.2 mmol/L (3.5-5.0) 03/14/17 06:07 Chloride 94 mmol/L (101-111) L 03/14/17 06:07 Carbon Dioxide 32 mmol/L (22-32) 03/14/17 06:07 Anion Gap 8 mmol/L (2-11) 03/14/17 06:07 BUN 35 mg/dL (6-24) H 03/14/17 06:07 Creatinine 6.56 mg/dL (0.51-0.95) H 03/14/17 06:07 Est GFR ( Amer) 8.8 (>60) 03/14/17 06:07 Est GFR (Non-Af Amer) 6.8 (>60) 03/14/17 06:07 BUN/Creatinine Ratio 5.3 (8-20) L 03/14/17 06:07 Glucose 111 mg/dL (70-100) H 03/14/17 06:07 Calcium 9.1 mg/dL (8.6-10.3) 03/14/17 06:07 Phosphorus 8.3 mg/dL (2.5-5.0) H 03/13/17 02:20 Magnesium 2.3 mg/dL (1.9-2.7) 03/13/17 02:20 Total Bilirubin 0.60 mg/dL (0.2-1.0) 03/13/17 02:20 Direct Bilirubin 0.10 mg/dL (0.03-0.18) 03/13/17 02:20 Indirect Bilirubin 0.5 mg/dL (0.3-1.0) 03/13/17 02:20 AST 22 U/L (13-39) 03/13/17 02:20 ALT 12 U/L (7-52) 03/13/17 02:20 Alkaline Phosphatase 75 U/L (34-104) 03/13/17 02:20 Troponin I 0.11 ng/mL (<0.04) H* 03/13/17 13:15 B-Natriuretic Peptide 2687 pg/mL (-100) H 03/13/17 02:20 Total Protein 6.4 g/dL (6.4-8.9) 03/13/17 02:20 Albumin 3.9 g/dL (3.2-5.2) 03/13/17 02:20 Globulin 2.5 g/dL (2-4) 03/13/17 02:20 Albumin/Globulin Ratio 1.6 (1-3) 03/13/17 02:20 Assess/Plan/Problems-Billing Assessment: Mrs. Joseph is a 46 yo female with PMH of HTN, ESRD, Afib, COPD, s/p AVR with redo TAVR deployed within previous bioprosthetic valve May 2016, moderate MVR, EF 55- 60%, chronic pain on opioids who presented to ED with c/o shortness of breath and chest pain, found to have hypertensive urgency, AFib with RVR. - Patient Problems (1) Chest pain Current Visit: Yes Status: Acute Code(s): R07.9 - CHEST PAIN, UNSPECIFIED SNOMED Code(s): 83032971 Comment: - Suspect a neuritic vs musculoskeletal pain - continue Lidoderm patch to the area. - Trial oxycodone 20 mg. Pt thinking of [facility] in [facility]. - Patient with clean coronaries and NO stent placed per [facility] records. - Cardiology input appreciated - started colchicine 03/17 for possible pleural/ pericardial inflammation component (2) HTN (hypertension) Current Visit: No Status: Chronic Code(s): I10 - ESSENTIAL (PRIMARY) HYPERTENSION SNOMED Code(s): 44359164 Comment: Increase metoprolol dose 03/18/17. Continue labetalol, diltiazem, amlodipine, clonidine PRN hydralazine (3) ESRD (end stage renal disease) on dialysis Current Visit: No Status: Acute Code(s): N18.6 - END STAGE RENAL DISEASE; Z99.2 - DEPENDENCE ON RENAL DIALYSIS SNOMED Code(s): 658557642 Comment: Continue dialysis inpt MoWeFr, outpt TuThSa (4) Atrial fibrillation with RVR Current Visit: Yes Status: Acute Code(s): I48.91 - UNSPECIFIED ATRIAL FIBRILLATION SNOMED Code(s): 517219379558905 Comment: - Continue beta-blockers and CCB. - Anticoagulation with Eliquis. Status and Disposition: Inpatient.
[2017-03-18] MEDS: Ondansetron INJ* 2 MG/ML VIAL IV PRN (18:58)
[2017-03-18] MEDS: Metoprolol Tartrate TAB* 25 MG PO SCH (19:54)
[2017-03-18] MEDS: Sodium Polystyrene ORAL.SOL* 15 GM/60 ML BTL PO SCH (19:55)
[2017-03-18] MEDS: diPHENhydraMINE PO* 25 MG PO SCH (19:55)
[2017-03-18] MEDS: Nitro Patch/OINT Remove TOPICAL SCH (20:06)
[2017-03-18] MEDS: Lidocaine Patch REMOVE* 1 NOTE MISC SCH (20:06)
[2017-03-18] MEDS ORDERED: Benzonatate CAP* 100 MG PO ONE (21:00)
[2017-03-19] MEDS: ALPRAZolam TAB* 0.25 MG PO PRN ×2 (00:09→13:55)
[2017-03-19] MEDS: oxyCODONE TAB* 5 MG TAB PO PRN ×3 (00:09→13:55)
[2017-03-19 07:34] VITALS: BP 128/94
[2017-03-19] MEDS: Polyethylene Glycol 3350* 17 GM PACKET PO PRN (07:39)
[2017-03-19] MEDS: Mometasone/Formoter 200/5 MDI INH SCH (08:38)
[2017-03-19] MEDS: Tiotropium CAP.INH* CAP.INH/18 MCG (USE ORDER SET !) INH SCH (08:39)
[2017-03-19] MEDS: cloNIDine TAB* 0.1 MG PO SCH (09:08)
[2017-03-19] MEDS: Labetalol TAB* 200 MG PO SCH (09:08)
[2017-03-19] MEDS: Metoprolol Tartrate TAB* 25 MG PO SCH (09:08)
[2017-03-19] MEDS: Sevelamer TAB* 800 MG PO SCH ×2 (09:08→13:53)
[2017-03-19] MEDS ORDERED: Diltiazem CD CAP* 120 MG PO ONE (09:11)
[2017-03-19] MEDS ORDERED: Diltiazem CD CAP* 180 MG PO ONE (09:11)
[2017-03-19] MEDS ORDERED: Epoetin Alfa* 10,000 UNITS/ML VIAL IV ONE (11:30)
[2017-03-19] MEDS ORDERED: Heparin DIALYSIS ONLY(*) 1,000 UNITS/ML VIAL DIALYSIS ONE (11:30)
--- NOTE | 2017-03-19 12:10 | PN ---
"Progress Note - Progress Note Date of Service: 03/19/17 Note: This report was requested by: Kenji Templeton | Reference #: [id number] My Prescriptions Patient Name: Juany Joseph Date: 1970 Address: [address] [place] [address] Sex: Female Rx Written Rx Dispensed Drug Quantity Days Supply Prescriber Name 11/11/2016 11/11/2016 oxycodone hcl 20 mg tablet 100 30 Kenji Templeton MD Patient Name: Juany Joseph Date: 1970 Address: [address] [place] [address] Sex: Female Rx Written Rx Dispensed Drug Quantity Days Supply Prescriber Name 03/03/2017 03/03/2017 oxycodone hcl 10 mg tablet 120 30 Maria Isabel Garcia 01/31/2017 02/03/2017 oxycodone hcl 10 mg tablet 120 30 GarciaMaria Isabel palmer 01/03/2017 01/03/2017 oxycodone hcl 10 mg tablet 120 30 Carlos Eduardo Mccarry 12/04/2016 12/04/2016 oxycodone hcl 15 mg tablet 120 30 Maria Isabel Garcia Patient Name: Juany Joseph Date: 1970 Address: [address] [place] [address] Sex: Female Rx Written Rx Dispensed Drug Quantity Days Supply Prescriber Name 10/15/2016 10/22/2016 oxycodone hcl 15 mg tablet 120 30 Maria Isabel Garcia 10/17/2016 10/22/2016 zolpidem tartrate 10 mg tablet 30 30 Franck Osorio MD 09/25/2016 09/25/2016 oxycodone hcl 15 mg tablet 120 30 GarciaMaria Isabel palmer 09/16/2016 09/18/2016 oxycodone-acetaminophen 5-325 mg tablet 56 14 Carlos Eduardo Mccrary 08/19/2016 08/21/2016 oxycodone hcl 15 mg tablet 120 30 GarciaMaria Isabel palmer 07/16/2016 07/25/2016 oxycodone hcl 15 mg tablet 120 30 Dora Campoverde) 06/21/2016 06/28/2016 alprazolam 0.25 mg tablet 9 3 Lynn, Kenzie M (STUDIO OPERATION ENGINEER-C ) 06/28/2016 06/28/2016 oxycodone hcl 15 mg tablet 120 30 Maria Isabel Garcia 06/21/2016 06/22/2016 oxycodone-acetaminophen 5-325 mg tablet 12 3 Kenzie Bailey (STUDIO OPERATION ENGINEER-C) 05/13/2016 05/13/2016 oxycodone hcl 5 mg tablet 20 5 Diogo Burns MD 04/16/2016 04/26/2016 lyrica 50 mg capsule 30 30 Erika Garcias 04/05/2016 04/07/2016 oxycodone hcl 15 mg tablet 120 30 Maria Isabel Garcia"
--- NOTE | 2017-03-19 12:12 | PN ---
Progress Note - Progress Note Date of Service: 03/19/17 Note: I spoke to the pharmacist at [facility]. She will delete my first oxycodone rx. New rx for 30 oxycodone sent. Time spent on discharge 55 minutes.
[2017-03-19] MEDS: Diltiazem CD CAP* 240 MG PO SCH (13:19)
[2017-03-19] MEDS: Sertraline* 25 MG TAB PO SCH (13:54)
[2017-03-19] MEDS: Montelukast Sodium TAB* 10 MG PO SCH (13:54)
[2017-03-19] MEDS: Vitamin E CAP* 400 UNIT PO SCH (13:54)
[2017-03-19] MEDS: Aspirin EC Low Dose* 81 MG TAB.EC PO SCH (13:54)
[2017-03-19] MEDS: Lidocaine PATCH 5%* 1 PATCH TRANSDERM SCH (13:56)
[2017-03-19] MEDS: Colchicine* 0.6 MG TAB PO SCH (14:00)
[2017-03-19] MEDS: Cinacalcet TAB* 30 MG PO SCH (14:00)
[2017-03-19] MEDS: Apixaban* 5 MG TAB PO SCH (14:00)
--- NOTE | 2017-03-20 01:02 | DS ---
CC: Dr. Osorio DISCHARGE SUMMARY: DATE OF ADMISSION: 03/13/17 DATE OF DISCHARGE: 03/19/17 HISTORY: This 46-year-old woman presented with shortness of breath. She was found to have pulmonar y edema, she required BiPAP. Her blood pressure was 182/108 on admission. The patient was initiall y placed in the intensive care unit. She was dialyzed in the hospital on the day of admission. She had atrial fibrillation with rapid ventricular response. She was started on a diltiazem drip. She had left- sided pleuritic chest pain. She was seen by the promotion manager. Colchicine was recommende d. No definitive diagnosis was made. She required oxycodone for pain control. There has been some question about her compliance with the pain clinic regimen. I increased her metoprolol and diltiazem doses shortly before her time of discharge. She will get 1 0 more days of colchicine 0.6 mg daily. She was given 30 oxycodone 10 mg tablets and instructed to take 1 to 2 up to 4 times a day as needed for pain. FINAL DIAGNOSES: 1. Chest pain. 2. Pulmonary edema related to hypertension. 3. End-stage renal disease. 4. Hypertension. 5. Atrial fibrillation. DISCHARGE MEDICATIONS: 1. Diltiazem 300 mg daily. 2. Colchicine 0.6 mg daily for 10 days. 3. Metoprolol tartrate 75 mg b.i.d. 4. Polyethylene glycol 17 g daily p.r.n. 5. Oxycodone 10 mg 1 to 2 tablets up to 4 times a day p.r.n. 6. Diphenhydramine 25 mg h.s. 7. Lidocaine-prilocaine cream topical as prescribed. 8. Montelukast 10 mg daily. 9. Vitamin E 400 units b.i.d. 10. Kayexalate 15 g daily. 11. Cinacalcet 90 mg daily. 12. Nitroglycerin 0.4 mg sublingual p.r.n. 13. Alprazolam 0.25 mg t.i.d. p.r.n. 14. Clonidine 0.2 mg b.i.d. 15. Dialyvite 1 tablet daily. 16. Aspirin 81 mg daily. 17. Labetalol 200 mg b.i.d. 18. Sevelamer 400 mg t.i.d. with meals. 19. Combivent Respimat 1 inhalation every 6 hours p.r.n. 20. Apixaban 5 mg b.i.d. 21. Mometasone/formoterol 200/5 two puffs b.i.d. 22. Sertraline 25 mg daily. 23. Tiotropium 1 capsule daily. [id number]/[facility] #: [id number]
== END 2017-03-19 16:30 | disposition home or self-care (01) | DRG 291 ==
LOC: ED 01:38 → ICU 07:51 → MEDTELE 03-14 13:38
PROVIDERS: ADMIT Internal Medicine; ATTEND Internal Medicine
PROC: 5A09357 Assistance with Respiratory Ventilation, Less than 24 Consecutive Hours, Continuous Positive Airway Pressure (ICD-10-PCS; principal; 2017-03-13)
PROC: 5A1D70Z Performance of Urinary Filtration, Intermittent, Less than 6 Hours Per Day (ICD-10-PCS; 2017-03-13)
PROC: 5A1D70Z Performance of Urinary Filtration, Intermittent, Less than 6 Hours Per Day (ICD-10-PCS; 2017-03-14)
PROC: 5A1D70Z Performance of Urinary Filtration, Intermittent, Less than 6 Hours Per Day (ICD-10-PCS; 2017-03-17)
PROC: 5A1D70Z Performance of Urinary Filtration, Intermittent, Less than 6 Hours Per Day (ICD-10-PCS; 2017-03-19)
DX: I13.2 Hypertensive heart and chronic kidney disease with heart failure and with stage 5 chronic kidney disease, or end stage renal disease (principal); I50.33 Acute on chronic diastolic (congestive) heart failure; J96.01 Acute respiratory failure with hypoxia; N18.6 End stage renal disease; E87.5 Hyperkalemia; I48.2 Chronic atrial fibrillation; Z99.2 Dependence on renal dialysis; G89.29 Other chronic pain; J44.9 Chronic obstructive pulmonary disease, unspecified; E66.9 Obesity, unspecified; F32.9 Major depressive disorder, single episode, unspecified; F41.9 Anxiety disorder, unspecified; I25.10 Atherosclerotic heart disease of native coronary artery without angina pectoris; E78.00 Pure hypercholesterolemia, unspecified; M19.90 Unspecified osteoarthritis, unspecified site; I16.0 Hypertensive urgency; F17.210 Nicotine dependence, cigarettes, uncomplicated; Z95.5 Presence of coronary angioplasty implant and graft; Z82.49 Family history of ischemic heart disease and other diseases of the circulatory system; Z95.3 Presence of xenogenic heart valve; Z88.8 Allergy status to other drugs, medicaments and biological substances; Z88.0 Allergy status to penicillin; Z88.1 Allergy status to other antibiotic agents; Z68.27 Body mass index [BMI] 27.0-27.9, adult; I25.2 Old myocardial infarction; Z86.718 Personal history of other venous thrombosis and embolism; Z86.711 Personal history of pulmonary embolism; Z95.1 Presence of aortocoronary bypass graft; Z90.710 Acquired absence of both cervix and uterus; Z99.81 Dependence on supplemental oxygen; Z86.14 Personal history of Methicillin resistant Staphylococcus aureus infection; Z80.1 Family history of malignant neoplasm of trachea, bronchus and lung
CPT/HCPCS: 36415; 71010; 71020; 78582; 80048; 80053; 82248; 83735; 83880; 84100; 84484; 85025; 85610; 85652; 85730; 86140; 90935; 93005; 93306; 94640; 94660; 94760; A9270-GY; A9540; A9558; G0257; J0360; J0780; J0885; J1644; J2270; J2405; J3010

== ENCOUNTER 2017-05-14 21:22 | Inpatient (IN) | payer MEDICARE, MEDICAID ==
[2017-05-14] MEDS ORDERED: Nitroglycerin 2% OINT* 1 GM PAK TOPICAL ONE (23:59)
[2017-05-14] MEDS ORDERED: Furosemide IV* 10 MG/ML 10 ML VIAL (100 MG) IV ONE (23:59)
[2017-05-15] MEDS ORDERED: Diltiazem IV* 5 MG/ML 5 ML VIAL (for loading dose/IV Push) (25 MG) IV SLOW PU ONE (00:36)
[2017-05-15 00:38] LABS: Hematocrit 33 % (35-47); Hemoglobin 11.2 g/dl (12.0-16.0); Mean Corpuscular HGB Conc 34 g/dl (31-36); Mean Corpuscular Hemoglobin 35 pg (27-31); Mean Corpuscular Volume 103 fL (80-97); Mean Platelet Volume 8 um3 (7.4-10.4); Red Blood Count 3.23 10^6/ul (4.0-5.4); Red Cell Distribution Width 18 % (10.5-15); White Blood Count 5.5 10^3/ul (3.5-10.8)
[2017-05-15 00:43] LABS: Add Diff/Slide Review? Manual Diff Added; Comments Flag Yes
[2017-05-15] MEDS ORDERED: oxyCODONE/Acetamin 5/325 MG* TAB PO ONE (00:47)
[2017-05-15 00:55] LABS: Albumin 4.1 g/dL (3.2-5.2); BUN/Creatinine Ratio 4.2 (8-20); EGFR African American 7.5 (>60); EGFR Non-African American 5.8 (>60); Potassium 3.6 mmol/L (3.5-5.0); Total Bilirubin 0.5 mg/dL (0.2-1.0); Total Protein 7.1 g/dL (6.4-8.9)
[2017-05-15 00:58] LABS: Troponin I 0.25 ng/mL (<0.04)
[2017-05-15 01:08] LABS: Macrocytosis 1+; Neutrophil % 61 % (38-83); Polychromasia 1+
[2017-05-15 01:09] LABS: Add Path Review? YES
--- NOTE | 2017-05-15 02:12 | ED ---
Ruth Greenwood Emily, scribed for [email or web address] on 05/15/17 at 0001 . Respiratory - HPI Summary HPI Summary: This patient is a 46 year old F presenting to [facility] with a chief complaint of CP with productive cough that began three days ago. The patient rates the pain 8 /10 in severity. Symptoms aggravated by nothing. Symptoms alleviated by nothing. Patient reports neck edema, MILLS, congestion, and chills. Patient denies fever. Pt is on dialysis, with her last treatment being yesterday. Pt is on 2 L of O2 at home. - History of Current Complaint Chief Complaint: EDChestWallPain Stated Complaint: CHEST PAIN Time Seen by Provider: 05/14/17 23:48 Hx Obtained From: Patient Onset/Duration: Sudden Onset, Lasting Days, Still Present Initial Severity: Severe Current Severity: Severe Pain Intensity: 8 Character: Cough (Productive) Sputum Color: Green Aggravating Factor(s): Nothing Alleviating Factor(s): Nothing Associated Signs and Symptoms: Chest Pain with Cough, Nasal Congestion - Allergy/Home Medications Allergies/Adverse Reactions: Allergies Allergy/AdvReac Type Severity Reaction Status Date / Time Iodixanol [From Visipaque] Allergy Severe Airway Verified 05/15/17 00:07 Obstruction Lisinopril Allergy Severe Difficulty Verified 05/15/17 00:07 Breathing Penicillins Allergy Severe HIVES,SWELLING Verified 05/15/17 00:07 THROAT Cephalosporins Allergy not Verified 05/15/17 00:07 specified PMH/Surg Hx/FS Hx/Imm Hx Previously Healthy: No Endocrine/Hematology History: Reports: Hx Anticoagulant Therapy, Hx Blood Transfusions, Hx Unexplained Bleeding Denies: Hx Blood Disorders, Hx Bone Marrow Disease, Hx Diabetes, Hx Systemic Lupus Erythematosus, Hx Sickle Cell Disease, Hx Thyroid Disease, Hx Anemia, Other Endocrine/Hematological Disorders Cardiovascular History: Reports: Hx Angina, Hx Cardiomegaly, Hx Congestive Heart Failure, Hx Coronary Artery Disease, Hx Deep Vein Thrombosis, Hx Hypercholesterolemia, Hx Hypertension, Hx Myocardial Infarction, Hx Valvular Heart Disease, Other Cardiovascular Problems/Disorders - 2 artificial heart valves; Hx of endocarditis Denies: Hx Aneurysm, Hx Angioplasty, Hx Auto Implanted Cardiovert Defib, Hx Cardiac Arrest, Hx Congenital Heart Disease, Hx Embolism, Hx Hypotension, Hx Pacemaker/ICD, Hx Peripheral Vascular Disease, Hx Rheumatic Fever, Hx Syncope Respiratory History: Reports: Hx Asthma, Hx Chronic Obstructive Pulmonary Disease (COPD), Hx Pneumonia, Hx Pulmonary Edema, Hx Pulmonary Embolism Denies: Hx Chronic Bronchitis, Hx Cystic Fibrosis, Hx Lung Cancer, Hx Pleural Effusion, Hx Seasonal Allergies, Hx Sleep Apnea, Other Respiratory Problems/Disorders History: Reports: Hx Acute Renal Failure, Hx Chronic Renal Failure, Hx Dialysis - ESRD, [place] ON //FRI, Hx Renal Disease Denies: Hx Benign Prostatic Hyperplasia, Hx Kidney Infection, Hx Kidney Stones, Other Problems/Disorders Musculoskeletal History: Reports: Hx Arthritis, Hx Back Problems Denies: Hx Bursitis, Hx Congenital Bone Abnormalities, Hx Fibromyalgia, Hx Gout, Hx Orthopedic Injury, Hx Osteoporosis, Hx Scoliosis, Hx Tendonitis, Other Musculoskeletal History Sensory History: Denies: Hx Contacts or Glasses, Hx Hearing Aid Opthamlomology History: Denies: Hx Contacts or Glasses Neurological History: Reports: Hx Headaches Denies: Hx Dementia, Hx Developmental Delay, Hx Migraine, Hx Nerve Disease, Hx Seizures, Hx Spinal Cord Injury, Hx Transient Ischemic Attacks (TIA), Other Neuro Impairments/Disorders Psychiatric History: Reports: Hx Anxiety, Hx Depression Denies: Hx Attention Deficit Hyperactivity Disorder, Hx Eating Disorder, Hx Panic Disorder, Hx Post Traumatic Stress Disorder, Hx Inpatient Treatment, Hx Community Mental Health Tx, Hx Schizophrenia, Hx Bipolar Disorder, Hx Suicide Attempt, Hx of Violent Episodes Against Others, Hx Substance Abuse, Other Psychiatric Issues/Disorders - Surgical History Surgery Procedure, Year, and Place: bilateral knees, dialysis tube placed in abdomen( out), fistula tube placement in arm for dialysis Lt arm has been revised. waiting out ok to use [id number], open heart valve replacement, hysterectomy, stents Hx Anesthesia Reactions: No - Immunization History Date of Tetanus Vaccine: Unk Date of Influenza Vaccine: Unk Infectious Disease History: No Infectious Disease History: Reports: Hx of Known/Suspected MRSA - Negative Denies: Hx Clostridium Difficile, Hx Hepatitis, Hx Human Immunodeficiency Virus (HIV), Hx Shingles, Hx Tuberculosis, Hx Known/Suspected VRE, History Other Infectious Disease, Traveled Outside the [place] in Last 30 Days - Family History Known Family History: Positive: Hypertension - Mother, Diabetes - Mother, Other - negative FHx for malignant hyperthermia and anesthesia rxn. Family History: Father -- Lung CA - Social History Occupation: Disabled Lives: With Family Alcohol Use: None Hx Substance Use: No Substance Use Type: Reports: None Hx Tobacco Use: Yes Smoking Status (MU): Light Every Day Tobacco Smoker Type: Cigarettes Amount Used/How Often: 1 cigarettes a day Length of Time of Smoking/Using Tobacco: 15 Have You Smoked in the Last Year: Yes Review of Systems Positive: Chills. Negative: Fever Positive: Other - Positive nasal congestion Positive: Chest Pain Positive: Cough Positive: Headache All Other Systems Reviewed And Are Negative: Yes Physical Exam Triage Information Reviewed: Yes Vital Signs On Initial Exam: Initial Vitals Temp Pulse Resp BP Pulse Ox 97.6 F 113 18 134/103 88 05/14/17 21:24 05/14/17 21:24 05/14/17 21:24 05/14/17 21:24 05/14/17 21:24 Vital Signs Reviewed: Yes Appearance: Positive: Well-Appearing, No Pain Distress Skin: Positive: Warm, Skin Color Reflects Adequate Perfusion, Dry Head/Face: Positive: Normal Head/Face Inspection Eyes: Positive: EOMI, HUMZA ENT: Positive: Normal ENT inspection Neck: Positive: Supple, Nontender Respiratory/Lung Sounds: Positive: Breath Sounds Present, Rales - Bilateral Cardiovascular: Positive: Pulses are Symmetrical in both Upper and Lower Extremities, IRR, Tachycardia Abdomen Description: Positive: Nontender, Soft Bowel Sounds: Positive: Present Musculoskeletal: Positive: Normal, Strength/ROM Intact Neurological: Positive: Normal, Sensory/Motor Intact, Alert, Oriented to Person Place, Time Psychiatric: Positive: Affect/Mood Appropriate Diagnostics - Vital Signs Vital Signs Temp Pulse Resp BP Pulse Ox 05/14/17 21:24 97.6 F 113 18 134/103 88 - Laboratory Lab Results: Lab Results 05/15/17 05/15/17 05/15/17 Range/Units 00:25 00:25 00:25 WBC 5.5 (3.5-10.8) 10^3/ul RBC 3.23 L (4.0-5.4) 10^6/ul Hgb 11.2 L (12.0-16.0) g/dl Hct 33 L (35-47) % MCV 103 H (80-97) fL MCH 35 H (27-31) pg MCHC 34 (31-36) g/dl RDW 18 H (10.5-15) % Plt Count 148 L (150-450) 10^3/ul MPV 8 (7.4-10.4) um3 Absolute Neuts (auto) 3.4 (1.5-7.7) 10^3/ul Absolute Lymphs (auto) 1.1 (1.0-4.8) 10^3/ul Absolute Monos (auto) 1.0 H (0-0.8) 10^3/ul Absolute Eos (auto) 0 (0-0.6) 10^3/ul Absolute Basos (auto) 0 (0-0.2) 10^3/ul Absolute Nucleated RBC 0 10^3/ul Neutrophils % 61 (38-83) % Lymphocytes % 20 L (25-47) % Monocytes % 19 H (0-13) % Normal RBC Morphology Not Reportable Polychromasia 1+ Macrocytosis 1+ Elliptocytes 1+ Hem Pathologist Commnt Pending INR (Anticoag Therapy) (0.77-1.02) APTT (26.0-36.3) seconds Sodium 136 (133-145) mmol/L Potassium 3.6 (3.5-5.0) mmol/L Chloride 92 L (101-111) mmol/L Carbon Dioxide 32 (22-32) mmol/L Anion Gap 12 H (2-11) mmol/L BUN 32 H (6-24) mg/dL Creatinine 7.53 H (0.51-0.95) mg/dL Est GFR ( Amer) 7.5 (>60) Est GFR (Non-Af Amer) 5.8 (>60) BUN/Creatinine Ratio 4.2 L (8-20) Glucose 102 H (70-100) mg/dL Lactic Acid (0.5-2.0) mmol/L Calcium 9.0 (8.6-10.3) mg/dL Total Bilirubin 0.50 (0.2-1.0) mg/dL AST 17 (13-39) U/L ALT 8 (7-52) U/L Alkaline Phosphatase 73 (34-104) U/L Troponin I 0.25 H* (<0.04) ng/mL B-Natriuretic Peptide 1278 H ( - 100) pg/mL Total Protein 7.1 (6.4-8.9) g/dL Albumin 4.1 (3.2-5.2) g/dL Globulin 3.0 (2-4) g/dL Albumin/Globulin Ratio 1.4 (1-3) 05/15/17 05/15/17 Range/Units 00:25 00:25 WBC (3.5-10.8) 10^3/ul RBC (4.0-5.4) 10^6/ul Hgb (12.0-16.0) g/dl Hct (35-47) % MCV (80-97) fL MCH (27-31) pg MCHC (31-36) g/dl RDW (10.5-15) % Plt Count (150-450) 10^3/ul MPV (7.4-10.4) um3 Absolute Neuts (auto) (1.5-7.7) 10^3/ul Absolute Lymphs (auto) (1.0-4.8) 10^3/ul Absolute Monos (auto) (0-0.8) 10^3/ul Absolute Eos (auto) (0-0.6) 10^3/ul Absolute Basos (auto) (0-0.2) 10^3/ul Absolute Nucleated RBC 10^3/ul Neutrophils % (38-83) % Lymphocytes % (25-47) % Monocytes % (0-13) % Normal RBC Morphology Polychromasia Macrocytosis Elliptocytes Hem Pathologist Commnt INR (Anticoag Therapy) 0.93 (0.77-1.02) APTT 32.5 (26.0-36.3) seconds Sodium (133-145) mmol/L Potassium (3.5-5.0) mmol/L Chloride (101-111) mmol/L Carbon Dioxide (22-32) mmol/L Anion Gap (2-11) mmol/L BUN (6-24) mg/dL Creatinine (0.51-0.95) mg/dL Est GFR ( Amer) (>60) Est GFR (Non-Af Amer) (>60) BUN/Creatinine Ratio (8-20) Glucose (70-100) mg/dL Lactic Acid 1.0 (0.5-2.0) mmol/L Calcium (8.6-10.3) mg/dL Total Bilirubin (0.2-1.0) mg/dL AST (13-39) U/L ALT (7-52) U/L Alkaline Phosphatase (34-104) U/L Troponin I (<0.04) ng/mL B-Natriuretic Peptide ( - 100) pg/mL Total Protein (6.4-8.9) g/dL Albumin (3.2-5.2) g/dL Globulin (2-4) g/dL Albumin/Globulin Ratio (1-3) Result Diagrams: 05/15/17 00:25 05/15/17 00:25 Lab Statement: Any lab studies that have been ordered have been reviewed, and results considered in the medical decision making process. - Radiology CXR Radiology Interpretation Completed By: ED Physician - CXR reveals mild CHF. - EKG 2128 Cardiac Rate: NL EKG Rhythm: Atrial Fibrillation - 118 BPM EKG Interpretation: LVH Disposition - Course Assessment/Plan: This patient is a 46 year old F presenting to [facility] with a chief complaint of CP with productive cough that began three days ago. Pt is on dialysis, with her last treatment being yesterday. Physical Exam Findings. Bilateral rales. Irregularly irregular heartbeat. Tachycardia. An EKG taken at 2128 reveals AFib at 118 BPM with LVH. CXR reveals mild CHF. ED physician has reviewed this radiology report. Bloodwork obtained. In the ED course the patient was given Dilatizem, Percocet, Lasix, and Nitroglycerin. We discussed patient care with Dr. Li and they recommended pt be admitted for further evaluation. The patient is agreeable with this plan. - Differential Dx - Cardiopulmonary Differential Diagnoses - Cardiopulmonary: Acute Coronary, Acute Dyspnea, CHF, Other - esrd on hd - Diagnoses Provider Diagnoses: CHF (congestive heart failure), End stage renal disease on dialysis, Atrial fibrillation with RVR, ACS (acute coronary syndrome) - Physician Notifications Discussed Care Of Patient With: Thomas Li Time Discussed With Above Provider: 01:33 Instructed by Provider To: Other - Consult with Dr. Li (hospitalist) at 0133. He agrees to admit pt. Discharge - Discharge Plan Condition: Stable Disposition: ADMITTED TO [facility] Referrals: No Primary Care Phys,NOPCP [Primary Care Provider] - The documentation as recorded by the Ruth sosa Emily accurately reflects the service I personally performed and the decisions made by , Baldomero Garza.
[2017-05-15] MEDS ORDERED: HYDROmorphone INJ* 2 MG/ML CARPUJECT SYRINGE IV SLOW PU ONE (03:57)
--- NOTE | 2017-05-15 03:58 | HP ---
H&P (Free Text) History and Physical: PCP: Kaiser Burns MD Date/Time of Evaluation: 05/15/2017 0545 CC: SOB HPI: Mrs Joseph is a 46YO female well known to the Hospitalist Service with a complex PMedHX outlined below. She presents with complaint of 2 days of increasing SOB and cough with associated sharp/pinching non-radiating non- exertional central chest pain exacerbated by cough and palpation. She reports scant production of brownish/orange sputum, but no melina blood. She endorses fever, sweats, and nausea, but no chills, emesis, palpitations, light-headedness , or other issues. 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 Cinacalcet HCl [Sensipar] 90 mg PO DAILY 10/11/16 Lidocaine-Prilocaine [Lidocaine/Prilocaine] 1 cre TOPICAL EVERY OTHER DAY Montelukast Sodium TAB* [Singulair 10 MG TAB*] 10 mg PO DAILY 10/11/16 Sodium Polystyrene ORAL.GISELA* [Kayexalate ORAL.GISELA*] 15 gm PO DAILY 10/11/16 Vitamin E [Natural Vitamin E] 400 unit PO BID 10/11/16 diPHENhydraMINE PO* [Benadryl PO 25 MG TAB*] 25 mg PO BEDTIME 10/11/16 Nitroglycerin TAB 0.4 MG* 0.4 mg SL Q5M PRN #0 tab 11/10/16 ALPRAZolam TAB* [Xanax TAB*] 0.25 mg PO TID PRN 12/31/16 Aspirin EC Low Dose* [Ecotrin EC Low Dose 81 MG*] 81 mg PO DAILY 12/31/16 B-Complex W/ C & Folic Acid [Dialyvite 800 0.8 mg] 1 tab PO DAILY 12/31/16 Clonidine HCl [Clonidine HCl 0.3 MG] 0.3 mg PO BID 12/31/16 Labetalol TAB* [Trandate TAB*] 200 mg PO BID 12/31/16 Sevelamer TAB* [Renvela TAB*] 4,000 mg PO TID WITH MEALS 12/31/16 Albuterol/Ipratropium RESP(NF) [Combivent Respimat (NF)] 1 aer IN Q6H #1 inh 04/11 Apixaban* [Eliquis*] 5 mg PO BID #60 tab 01/03/17 Mometasone/Formoter 200/5 MDI* [Dulera 200/5 MDI*] 2 puff INH BID #1 inh Sertraline* [Zoloft*] 25 mg PO DAILY #30 tab 01/03/17 Tiotropium CAP.INH* [Spiriva CAP.INH*] 1 cap.inh INH DAILY #1 inh 01/03/17 Diltiazem HCl Coated Beads [Diltiazem Cd] 300 mg PO DAILY #30 cap 03/19/17 Metoprolol Tartrate TAB* [Lopressor TAB*] 75 mg PO BID #180 tab 03/19/17 Oxycodone IR 10 MG(NF) 20 mg PO QID #30 tab MDD 8 03/19/17 Polyethylene Glycol 3350* [Miralax*] 17 gm PO DAILY PRN #0 packet 03/19/17 Oxycodone TAB(NF) [Oxycodone HCl 10 MG] 10 mg PO Q6H PRN #12 tab MDD 4 04/05/17 Hydromorphone HCl [Dilaudid] 2 - 4 mg PO Q4H PRN MDD 10 04/10/17 Allergies Iodixanol [From Visipaque] Allergy (Severe, Verified 05/15/17 00:07) Airway Obstruction Angioedema of tongue, upper airway Lisinopril Allergy (Severe, Verified 05/15/17 00:07) Difficulty Breathing Penicillins Allergy (Severe, Verified 05/15/17 00:07) HIVES,SWELLING THROAT Cephalosporins Allergy (Verified 05/15/17 00:07) not specified PSurgHx CABG porcine MVR & AVR TAVR within prior porcine AVR hysterectomy knee arthroscopies SocHx: <1/4PPD cigarettes, denies alcohol and recreational drug HX; lives with her children; on disability; full code status FamHx: reviewed, non-contributory ROS: as above, otherwise reviewed and all were negative Constitutional: NAD, normally developed, overweight black female vitals: Vital Signs Temp 36.4 C 05/14/17 21:24 Pulse 100 05/15/17 04:00 Resp 16 05/15/17 04:08 BP 164/98 05/15/17 04:10 Pulse Ox 96 05/15/17 04:00 Intake & Output 05/14/17 05/14/17 05/15/17 11:59 23:59 11:59 Weight 81.647 kg HEENM: atraumatic; sclera/conjunctiva: non-icteric/mildly injected OU; hearing: clinically intact; oropharynx: clear, mucosa moist Neck: soft tissue: non-tender; thyroid: normal Pulmonary: scant diffuse crackles, mild end-expiratory wheeze, fair aeration, no accessory muscle use CV: TIR/IR, normal S1S2, 2/6 blowing systolic murmur; no jugular venous distention, 2+ B DP/PT, 1+ BLE edema, chest pain reproduced with lateral L chest wall palpation Abdominal: soft, non-distended, non-tender, no rebound/guarding/rigidity, normoactive bowel sounds, no hepatosplenomegaly or masses, no costovertebral angle tenderness Musculoskeletal: general: grossly intact, diffuse reproducible chest wall pain with palpation Integumental: normal appearance and texture of exposed skin Psychiatric orientation: AA&O to PPS affect: anxious mood: cooperative eye contact: fair content: reliable responses: timely insight: fair to poor Testing: Lab Results 05/15/17 05/15/17 05/15/17 Range/Units 00:25 00:25 00:25 WBC 5.5 (3.5-10.8) 10^3/ul RBC 3.23 L (4.0-5.4) 10^6/ul Hgb 11.2 L (12.0-16.0) g/dl Hct 33 L (35-47) % MCV 103 H (80-97) fL MCH 35 H (27-31) pg MCHC 34 (31-36) g/dl RDW 18 H (10.5-15) % Plt Count 148 L (150-450) 10^3/ul MPV 8 (7.4-10.4) um3 Absolute Neuts (auto) 3.4 (1.5-7.7) 10^3/ul Absolute Lymphs (auto) 1.1 (1.0-4.8) 10^3/ul Absolute Monos (auto) 1.0 H (0-0.8) 10^3/ul Absolute Eos (auto) 0 (0-0.6) 10^3/ul Absolute Basos (auto) 0 (0-0.2) 10^3/ul Absolute Nucleated RBC 0 10^3/ul Neutrophils % 61 (38-83) % Lymphocytes % 20 L (25-47) % Monocytes % 19 H (0-13) % Normal RBC Morphology Not Reportable Polychromasia 1+ Macrocytosis 1+ Elliptocytes 1+ Hem Pathologist Commnt Pending INR (Anticoag Therapy) (0.77-1.02) APTT (26.0-36.3) seconds Sodium 136 (133-145) mmol/L Potassium 3.6 (3.5-5.0) mmol/L Chloride 92 L (101-111) mmol/L Carbon Dioxide 32 (22-32) mmol/L Anion Gap 12 H (2-11) mmol/L BUN 32 H (6-24) mg/dL Creatinine 7.53 H (0.51-0.95) mg/dL Est GFR ( Amer) 7.5 (>60) Est GFR (Non-Af Amer) 5.8 (>60) BUN/Creatinine Ratio 4.2 L (8-20) Glucose 102 H (70-100) mg/dL Lactic Acid (0.5-2.0) mmol/L Calcium 9.0 (8.6-10.3) mg/dL Total Bilirubin 0.50 (0.2-1.0) mg/dL AST 17 (13-39) U/L ALT 8 (7-52) U/L Alkaline Phosphatase 73 (34-104) U/L Troponin I 0.25 H* (<0.04) ng/mL B-Natriuretic Peptide 1278 H ( - 100) pg/mL Total Protein 7.1 (6.4-8.9) g/dL Albumin 4.1 (3.2-5.2) g/dL Globulin 3.0 (2-4) g/dL Albumin/Globulin Ratio 1.4 (1-3) 05/15/17 05/15/17 05/15/17 Range/Units 00:25 00:25 04:05 WBC (3.5-10.8) 10^3/ul RBC (4.0-5.4) 10^6/ul Hgb (12.0-16.0) g/dl Hct (35-47) % MCV (80-97) fL MCH (27-31) pg MCHC (31-36) g/dl RDW (10.5-15) % Plt Count (150-450) 10^3/ul MPV (7.4-10.4) um3 Absolute Neuts (auto) (1.5-7.7) 10^3/ul Absolute Lymphs (auto) (1.0-4.8) 10^3/ul Absolute Monos (auto) (0-0.8) 10^3/ul Absolute Eos (auto) (0-0.6) 10^3/ul Absolute Basos (auto) (0-0.2) 10^3/ul Absolute Nucleated RBC 10^3/ul Neutrophils % (38-83) % Lymphocytes % (25-47) % Monocytes % (0-13) % Normal RBC Morphology Polychromasia Macrocytosis Elliptocytes Hem Pathologist Commnt INR (Anticoag Therapy) 0.93 (0.77-1.02) APTT 32.5 (26.0-36.3) seconds Sodium (133-145) mmol/L Potassium (3.5-5.0) mmol/L Chloride (101-111) mmol/L Carbon Dioxide (22-32) mmol/L Anion Gap (2-11) mmol/L BUN (6-24) mg/dL Creatinine (0.51-0.95) mg/dL Est GFR ( Amer) (>60) Est GFR (Non-Af Amer) (>60) BUN/Creatinine Ratio (8-20) Glucose (70-100) mg/dL Lactic Acid 1.0 (0.5-2.0) mmol/L Calcium (8.6-10.3) mg/dL Total Bilirubin (0.2-1.0) mg/dL AST (13-39) U/L ALT (7-52) U/L Alkaline Phosphatase (34-104) U/L Troponin I 0.22 H* (<0.04) ng/mL B-Natriuretic Peptide ( - 100) pg/mL Total Protein (6.4-8.9) g/dL Albumin (3.2-5.2) g/dL Globulin (2-4) g/dL Albumin/Globulin Ratio (1-3) ECG, personally reviewed: CXR, personally reviewed: AFIB rate 118, poor R-wave progression, no ischemia ECHO (03/13/2017): Conclusions: The left ventricular chamber size is normal. Severe concentric left ventricular hypertrophy is observed. There is normal left ventricular systolic function. The estimated ejection fraction is 55-60%. The left atrium is severely dilated. The right atrial cavity size is severely dilated. A #23 Sapian TAVR valve, inside a prior bioprosthetic valve is present. The leaflets appear to move unrestricted. The mean gradient of the aortic valve is 32.65 mmHg. There is mild to moderate mitral regurgitation. There is mild mitral stenosis. There is moderate tricuspid regurgitation. There is evidence of mild pulmonary hypertension. There is mild pulmonic regurgitation. There is mild dilatation of the aortic root. The patient is noted to be in atrial fibrillation. Compared to report of study from 11/07/2016 It is now understood the aortic valve is a TAVR valve inside a prior bioprosthetic valve (TAVR procedure was performed 05/31/2016 at [facility] ) The degree of tricuspid regurgitation is less (was moderate to severe) , the degree of mitral regurgitation is less (was moderate). The mean gradient across the aortic valve is mildly increased (was 27.7 mm hg) but this can vary due to hemodynamic. The leaflets appear to move relatively unrestricted. Impression: 46F w/ complex medical HX outlined above presents with 2 days of cough, SOB, & chest pain found to have an elevated troponin DIAGNOSIS & PLAN Primary AFIB/RVR : telemetry : diltiazem 20mg IV x1 in ED has brought under control chest pain : suspect 2nd cough : troponin felt likely 2nd demand ischemia : telemetry : trend troponin : consider cardiology consult pending troponin trend : supportive care SOB 2nd combined bronchitis, baseline COPD, & AFIB/RVR : symptomatic management COPD exacerbation : albuterol neb : mometasone/formoterol : tiotropium : guiafenesin : supplemental oxygen : incentive spirometry : supportive care ESRD (TuThSa) : consult Inna Osorio MD nephrology in AM for continuation of dialysis : continue sevelamer & cinacalcet once reconciled Secondary anemia of renal disease : monitor periodically HTN : review meds once reconciled HLD : review meds once reconciled CAD/CT : review meds once reconciled chronic diastolic HF : daily weights : strict I&Os : heart healthy diet anxiety : review meds once reconciled HX DVT/PE & superior vena cava syndrome : continue apixaban once reconciled Admission Rational: observation for SOB & chest pain DVTp: apixaban Code Status: full
[2017-05-15] MEDS ORDERED: Acetaminophen TAB* 325 MG PO PRN (06:23)
[2017-05-15] MEDS ORDERED: Melatonin (NF) 3 MG TAB PO PRN (06:23)
[2017-05-15] MEDS ORDERED: Albuterol 2.5 MG/3 ML NEB.SOL* (0.083%) INH PRN (06:23)
[2017-05-15] MEDS ORDERED: methylPREDNISolone 125 MG* 2 ML VIAL IV ONE (06:24)
[2017-05-15] MEDS ORDERED: Nicotine Inhaler* 10 MG AMP INH PRN (06:24)
[2017-05-15] MEDS ORDERED: methylPREDNISolone 125 MG* 2 ML VIAL ONE (06:38)
[2017-05-15] MEDS ORDERED: Spiriva Inhaler DEVICE* 1 EACH DEVICE SCH (07:00)
[2017-05-15 07:17] LABS: BUN/Creatinine Ratio 4.2 (8-20); Calcium 8.6 mg/dL (8.6-10.3); EGFR African American 7.1 (>60); EGFR Non-African American 5.5 (>60); Potassium 3.6 mmol/L (3.5-5.0)
[2017-05-15 07:26] LABS: Hematocrit 32 % (35-47); Hemoglobin 10.7 g/dl (12.0-16.0); Mean Corpuscular HGB Conc 34 g/dl (31-36); Mean Corpuscular Hemoglobin 35 pg (27-31); Mean Corpuscular Volume 104 fL (80-97); Mean Platelet Volume 9 um3 (7.4-10.4); Red Blood Count 3.04 10^6/ul (4.0-5.4); Red Cell Distribution Width 18 % (10.5-15)
[2017-05-15 07:35] LABS: Troponin I 0.23 ng/mL (<0.04)
--- NOTE | 2017-05-15 07:54 | RAD ---
HISTORY: Shortness of breath COMPARISONS: March 17, 2017 VIEWS: 1: frontal portable view of the chest at 12:30 AM FINDINGS: LINES AND TUBES: None. CARDIOMEDIASTINAL SILHOUETTE: The cardiac silhouette is enlarged. The cardiomediastinal silhouette is otherwise normal for portable technique. A prosthetic heart valve is noted. PLEURA: The costophrenic angles are sharp. No pleural abnormalities are noted. LUNG PARENCHYMA: There is a diffuse reticular pattern with indistinct pulmonary vessels. There is confluent alveolar opacification of the retrocardiac left lower lobe. ABDOMEN: The upper abdomen is clear. There is no subphrenic gas. BONES AND SOFT TISSUES: The patient is status post median sternotomy. IMPRESSION: 1. CARDIOMEGALY. 2. PULMONARY INTERSTITIAL EDEMA. 3. LEFT BASILAR ATELECTASIS VERSUS CONSOLIDATION
[2017-05-15] MEDS ORDERED: Spiriva Inhaler DEVICE* 1 EACH DEVICE INH ONE (08:00)
[2017-05-15] MEDS: Albuterol 2.5 MG/3 ML NEB.SOL* (0.083%) INH SCH ×2 (08:56→14:24)
[2017-05-15] MEDS: Tiotropium CAP.INH* CAP.INH/18 MCG (USE ORDER SET !) INH SCH (08:57)
[2017-05-15] MEDS ORDERED: Mometasone/Formoter 200/5 MDI INH SCH (09:00)
[2017-05-15] MEDS: Omeprazole CAP* 20 MG PO SCH (09:13)
[2017-05-15] MEDS: guaiFENesin ER TAB 600 MG PO SCH ×2 (09:14→22:17)
[2017-05-15] MEDS: Docusate CAP* 100 MG PO SCH ×2 (09:14→22:18)
[2017-05-15] MEDS: Sevelamer TAB* 800 MG PO SCH ×3 (09:54→19:03)
[2017-05-15] MEDS: Morphine INJ* 4 MG/ML 1 ML CARPUJECT IV PRN ×3 (09:54→23:02)
[2017-05-15] MEDS: oxyCODONE TAB* 5 MG TAB PO PRN (12:29)
[2017-05-15] MEDS ORDERED: Polyethylene Glycol 3350* 17 GM PACKET PO PRN (12:35)
[2017-05-15] MEDS: Diltiazem CD CAP* 180 MG PO SCH (14:00)
[2017-05-15] MEDS ORDERED: methylPREDNISolone SOD 40 MG* 1 ML VIAL IV SCH (14:00)
[2017-05-15] MEDS: cloNIDine TAB* 0.1 MG PO SCH ×2 (14:01→22:17)
[2017-05-15] MEDS: Labetalol TAB* 200 MG PO SCH ×2 (14:01→22:18)
[2017-05-15] MEDS: ALPRAZolam TAB* 0.25 MG PO PRN ×2 (14:01→23:02)
[2017-05-15] MEDS: Diltiazem CD CAP* 120 MG PO SCH (14:01)
[2017-05-15] MEDS: Metoprolol Tartrate TAB* 25 MG PO SCH ×2 (14:01→22:18)
[2017-05-15] MEDS: Mometasone/Formoter 200/5 MDI INH SCH ×2 (14:23→19:33)
[2017-05-15] MEDS ORDERED: Albuterol/Ipratropium NEB.SOL* Albuterol 2.5 MG/Ipratropium 0.5 MG 3 ML INH PRN (16:58)
--- NOTE | 2017-05-15 17:53 | PN ---
Subjective Date of Service: 05/15/17 Interval History: This is a 46 yo female with multiple chronic medical conditions who presented with c/o cough and SOB and cough. No significant weight gain. She reports associated chills and productive cough. She was evaluated during dialysis and reported no change in her symptoms since dialysis started. Objective Active Medications: Acetaminophen (Tylenol Tab*) 650 mg PO Q6H PRN PRN Reason: FEVER/PAIN Last Admin: 05/15/17 09:13 Dose: 650 mg Albuterol/Ipratropium (Duoneb (Albuterol 2.5 Mg/Ipratropium 0.5 Mg)) 1 neb INH Q4H PRN PRN Reason: SOB/WHEEZING Alprazolam (Xanax Tab*) 0.25 mg PO TID PRN PRN Reason: ANXIETY Last Admin: 05/15/17 14:01 Dose: 0.25 mg Apixaban (Eliquis*) 5 mg PO BID [facility] Aspirin (Aspirin Ec Low Dose*) 81 mg PO DAILY [facility] Cinacalcet (Sensipar Tab*) 90 mg PO DAILY [facility] Clonidine HCl (Catapres Tab*) 0.3 mg PO BID [facility] Last Admin: 05/15/17 14:01 Dose: 0.3 mg Diltiazem HCl (Cardizem Cd Cap*) 180 mg PO DAILY [facility] Last Admin: 05/15/17 14:00 Dose: 180 mg Diltiazem HCl (Cardizem Cd Cap*) 120 mg PO DAILY [facility] Last Admin: 05/15/17 14:01 Dose: 120 mg Diphenhydramine HCl (Benadryl Po*) 25 mg PO BEDTIME [facility] Docusate Sodium (Colace Cap*) 200 mg PO BID [facility] Last Admin: 05/15/17 09:14 Dose: 200 mg Guaifenesin (Mucinex*) 1,200 mg PO BID [facility] Last Admin: 05/15/17 09:14 Dose: 1,200 mg Azithromycin 500 mg/ Sodium (Chloride) 250 mls @ 250 mls/hr IVPB Q24H [facility] Labetalol HCl (Trandate Tab*) 200 mg PO BID [facility] Last Admin: 05/15/17 14:01 Dose: 200 mg Melatonin (Melatonin (Nf)) 3 mg PO BEDTIME PRN; Protocol PRN Reason: Sleep Metoprolol Tartrate (Lopressor Tab*) 75 mg PO BID [facility] Last Admin: 05/15/17 14:01 Dose: 75 mg Mometasone Furoate/Formoterol Fumar (Dulera 200/5 Mdi*) 2 puff INH BID [facility] Last Admin: 05/15/17 14:23 Dose: Not Given Montelukast Sodium (Singulair Tab*) 10 mg PO DAILY [facility] Morphine Sulfate (Morphine Inj (Syringe)*) 4 mg IV Q4H PRN PRN Reason: PAIN Last Admin: 05/15/17 09:54 Dose: 4 mg Nicotine (Nicotine Inhaler*) 10 mg INH Q2H PRN PRN Reason: CRAVING Omeprazole (Prilosec Cap*) 20 mg PO DAILY@0600 [facility] Last Admin: 05/15/17 09:13 Dose: 20 mg Ondansetron HCl (Zofran Inj*) 4 mg IV Q6H PRN PRN Reason: NAUSEA Oxycodone HCl (Roxycodone Tab*) 10 mg PO Q4H PRN PRN Reason: PAIN Last Admin: 05/15/17 12:29 Dose: 10 mg Polyethylene Glycol/Electrolytes (Miralax*) 17 gm PO DAILY PRN PRN Reason: CONSTIPATION Prednisone (Deltasone Tab*) 40 mg PO DAILY [facility] Sertraline HCl (Zoloft*) 25 mg PO DAILY [facility] Sevelamer Carbonate (Renvela Tab*) 4,000 mg PO AC [facility] Last Admin: 05/15/17 12:30 Dose: 4,000 mg Sodium Polystyrene Sulfonate (Kayexalate Oral.Tonya*) 15 gm PO DAILY [facility] Tiotropium [place] (Spiriva Cap.Inh*) 1 cap INH DAILY [facility] Last Admin: 05/15/17 08:57 Dose: 1 cap Vital Signs: Temp Pulse Resp BP Pulse Ox 98.8 F 92 20 185/133 95 05/15/17 11:33 05/15/17 14:26 05/15/17 14:26 05/15/17 11:33 05/15/17 14:26 Oxygen Devices in Use Now: Nasal Cannula Appearance: Slightly dramatic 46 yo female in NAD examined during dialysis Neck: NL Appearance and Movements; NL JVP Respiratory: Symmetrical Chest Expansion and Respiratory Effort, Clear to Auscultation Cardiovascular: NL Sounds; No Murmurs; No JVD, RRR Extremities: No Edema Skin: No Rash or Ulcers Neurological: Alert and Oriented x 3 Result Diagrams: 05/15/17 06:45 05/15/17 06:45 Additional Lab and Data: . Microbiology and Other Data: Microbiology 05/15/17 07:15 Nasal Screen MRSA (PCR)(RON) - Final Nasal Mrsa Negative Assess/Plan/Problems-Billing Assessment: This is a 46 yo female with ESRD, COPD, CAD, afib, h/o complicated PE, chronic anemia, HTN, HLD, mitral and aortic valve replacements who presents with chest pain, cough and SOB admitted with COPD exacerbation. - Patient Problems (1) COPD exacerbation Comment: Acute complaints of CP, cough and SOB appear to be secondary to a viral syndrome inducing a COPD exacerbation Cont corticosteroids, but transition or oral Cont inhaled therapies and start azithromycin (2) Atrial fibrillation with RVR Comment: Improved rate control after IV bolus cardizem in the ER Cont usual AV vi blocking agents (3) Anemia Comment: Chronic anemia secondary to ESRD Hgb near baseline ~10 g/dl (4) S/P AVR (aortic valve replacement) Comment: TAVR in May 2016 (5) HTN (hypertension) Comment: Noted HTN Cont home medications and re-eval post dialysis (6) Chronic pain Comment: Cont usual home narcotics (7) Full code status (8) DVT prophylaxis Comment: Eliquis. Status and Disposition: Observation. Anticipate possible dc tomorrow.
[2017-05-15] MEDS: Cinacalcet TAB* 30 MG PO SCH (19:52)
[2017-05-15] MEDS: Montelukast Sodium TAB* 10 MG PO SCH (19:52)
[2017-05-15] MEDS: Sodium Polystyrene ORAL.SOL* 15 GM/60 ML BTL PO SCH (19:53)
[2017-05-15] MEDS: Azithromycin IV(*) 500 MG in NS 0.9% 250 ML* 250 ML IVPB SCH (19:54)
[2017-05-15] MEDS: diPHENhydraMINE PO* 25 MG PO SCH (22:17)
[2017-05-15] MEDS: Apixaban* 5 MG TAB PO SCH ×2 (22:17→23:21)
[2017-05-15] MEDS: Aspirin EC Low Dose* 81 MG TAB.EC PO SCH (22:17)
[2017-05-15] MEDS: Ondansetron INJ* 2 MG/ML VIAL IV PRN (23:02)
[2017-05-16] MEDS ORDERED: Mouth Piece, Nicotine* 1 EACH CARTRIDGE ONE (02:37)
[2017-05-16] MEDS: Morphine INJ* 4 MG/ML 1 ML CARPUJECT IV PRN ×4 (03:12→21:05)
[2017-05-16] MEDS: Omeprazole CAP* 20 MG PO SCH (05:00)
[2017-05-16] MEDS: Ondansetron INJ* 2 MG/ML VIAL IV PRN (05:01)
[2017-05-16] MEDS: Sevelamer TAB* 800 MG PO SCH ×3 (08:11→16:44)
--- NOTE | 2017-05-16 08:46 | PN ---
Subjective Date of Service: 05/16/17 Interval History: Patient reports no improvement in cough or chest pain overnight. She has a sore throat, complains of associated nausea. Objective Active Medications: Acetaminophen (Tylenol Tab*) 650 mg PO Q6H PRN PRN Reason: FEVER/PAIN Last Admin: 05/15/17 09:13 Dose: 650 mg Albuterol/Ipratropium (Duoneb (Albuterol 2.5 Mg/Ipratropium 0.5 Mg)) 1 neb INH Q4H PRN PRN Reason: SOB/WHEEZING Alprazolam (Xanax Tab*) 0.25 mg PO TID PRN PRN Reason: ANXIETY Last Admin: 05/15/17 23:02 Dose: 0.25 mg Apixaban (Eliquis*) 5 mg PO BID [facility] Last Admin: 05/15/17 23:21 Dose: Not Given Aspirin (Aspirin Ec Low Dose*) 81 mg PO DAILY [facility] Last Admin: 05/15/17 22:17 Dose: 81 mg Cinacalcet (Sensipar Tab*) 90 mg PO DAILY [facility] Last Admin: 05/15/17 19:52 Dose: 90 mg Clonidine HCl (Catapres Tab*) 0.3 mg PO BID [facility] Last Admin: 05/15/17 22:17 Dose: 0.3 mg Diltiazem HCl (Cardizem Cd Cap*) 180 mg PO DAILY [facility] Last Admin: 05/15/17 14:00 Dose: 180 mg Diltiazem HCl (Cardizem Cd Cap*) 120 mg PO DAILY [facility] Last Admin: 05/15/17 14:01 Dose: 120 mg Diphenhydramine HCl (Benadryl Po*) 25 mg PO BEDTIME [facility] Last Admin: 05/15/17 22:17 Dose: 25 mg Docusate Sodium (Colace Cap*) 200 mg PO BID [facility] Last Admin: 05/15/17 22:18 Dose: 200 mg Guaifenesin (Mucinex*) 1,200 mg PO BID [facility] Last Admin: 05/15/17 22:17 Dose: 1,200 mg Azithromycin 500 mg/ Sodium (Chloride) 250 mls @ 250 mls/hr IVPB Q24H [facility] Last Admin: 05/15/17 19:54 Dose: 250 mls/hr Labetalol HCl (Trandate Tab*) 200 mg PO BID [facility] Last Admin: 05/15/17 22:18 Dose: 200 mg Melatonin (Melatonin (Nf)) 3 mg PO BEDTIME PRN; Protocol PRN Reason: Sleep Metoprolol Tartrate (Lopressor Tab*) 75 mg PO BID [facility] Last Admin: 05/15/17 22:18 Dose: 75 mg Mometasone Furoate/Formoterol Fumar (Dulera 200/5 Mdi*) 2 puff INH BID [facility] Last Admin: 05/15/17 19:33 Dose: 2 puff Montelukast Sodium (Singulair Tab*) 10 mg PO DAILY [facility] Last Admin: 05/15/17 19:52 Dose: 10 mg Morphine Sulfate (Morphine Inj (Syringe)*) 4 mg IV Q4H PRN PRN Reason: PAIN Last Admin: 05/16/17 08:11 Dose: 4 mg Nicotine (Nicotine Inhaler*) 10 mg INH Q2H PRN PRN Reason: CRAVING Last Admin: 05/16/17 02:39 Dose: 10 mg Omeprazole (Prilosec Cap*) 20 mg PO DAILY@0600 [facility] Last Admin: 05/16/17 05:00 Dose: 20 mg Ondansetron HCl (Zofran Inj*) 4 mg IV Q6H PRN PRN Reason: NAUSEA Last Admin: 05/16/17 05:01 Dose: 4 mg Oxycodone HCl (Roxycodone Tab*) 10 mg PO Q4H PRN PRN Reason: PAIN Last Admin: 05/15/17 12:29 Dose: 10 mg Polyethylene Glycol/Electrolytes (Miralax*) 17 gm PO DAILY PRN PRN Reason: CONSTIPATION Prednisone (Deltasone Tab*) 40 mg PO DAILY [facility] Sertraline HCl (Zoloft*) 25 mg PO DAILY [facility] Sevelamer Carbonate (Renvela Tab*) 4,000 mg PO AC [facility] Last Admin: 05/16/17 08:11 Dose: 4,000 mg Sodium Polystyrene Sulfonate (Kayexalate Oral.Tonya*) 15 gm PO DAILY [facility] Last Admin: 05/15/17 19:53 Dose: 15 gm Tiotropium [place] (Spiriva Cap.Inh*) 1 cap INH DAILY [facility] Last Admin: 05/15/17 08:57 Dose: 1 cap Vital Signs: Temp Pulse Resp BP Pulse Ox 98.0 F 80 20 155/108 100 05/16/17 03:31 05/16/17 03:31 05/16/17 08:11 05/16/17 03:31 05/16/17 03:31 Oxygen Devices in Use Now: Nasal Cannula Appearance: 46 yo chronically ill female that is anxious but in NAD Respiratory: Symmetrical Chest Expansion and Respiratory Effort, Clear to Auscultation Cardiovascular: RRR, - - 4-5/6 murmur Abdominal: NL Sounds; No Tenderness; No Distention Extremities: No Edema Skin: No Rash or Ulcers Neurological: Alert and Oriented x 3 Result Diagrams: 05/15/17 06:45 05/15/17 06:45 Additional Lab and Data: . Microbiology and Other Data: Microbiology 05/15/17 07:15 Nasal Screen MRSA (PCR)(RON) - Final Nasal Mrsa Negative Assess/Plan/Problems-Billing Assessment: This is a 46 yo female with ESRD, COPD, CAD, afib, h/o complicated PE, chronic anemia, HTN, HLD, mitral and aortic valve replacements who presents with chest pain, cough and SOB admitted with COPD exacerbation. - Patient Problems (1) COPD exacerbation Comment: Acute complaints of CP, cough and SOB appear to be secondary to a viral syndrome inducing a COPD exacerbation Cont corticosteroids Cont inhaled therapies and start azithromycin Start Robitussin AC Screen for influenza, although suspicion is low (2) Atrial fibrillation with RVR Comment: Improved rate control after IV bolus cardizem in the ER Cont usual AV vi blocking agents (3) Anemia Comment: Chronic anemia secondary to ESRD Hgb near baseline ~10 g/dl (4) S/P AVR (aortic valve replacement) Comment: TAVR in May 2016 (5) HTN (hypertension) Comment: Improved control since dialysis yesterday Cont home medications and cont to monitor (6) Chronic pain Comment: Cont usual home narcotics (7) Full code status (8) DVT prophylaxis Comment: Eliquis. Status and Disposition: Cont hospital stay, patient notes no improvement in symptoms since admission. Anticipate dc home in 1-2 days.
[2017-05-16] MEDS: Mometasone/Formoter 200/5 MDI INH SCH ×2 (09:46→21:31)
[2017-05-16] MEDS: Tiotropium CAP.INH* CAP.INH/18 MCG (USE ORDER SET !) INH SCH (09:47)
[2017-05-16] MEDS: Aspirin EC Low Dose* 81 MG TAB.EC PO SCH (10:08)
[2017-05-16] MEDS: cloNIDine TAB* 0.1 MG PO SCH ×2 (10:08→21:04)
[2017-05-16] MEDS: Apixaban* 5 MG TAB PO SCH ×2 (10:08→21:05)
[2017-05-16] MEDS: guaiFENesin ER TAB 600 MG PO SCH ×2 (10:08→21:04)
[2017-05-16] MEDS: Diltiazem CD CAP* 120 MG PO SCH (10:08)
[2017-05-16] MEDS: Montelukast Sodium TAB* 10 MG PO SCH (10:08)
[2017-05-16] MEDS: predniSONE TAB* 20 MG PO SCH (10:08)
[2017-05-16] MEDS: Docusate CAP* 100 MG PO SCH ×2 (10:08→21:04)
[2017-05-16] MEDS: Metoprolol Tartrate TAB* 25 MG PO SCH ×2 (10:08→21:04)
[2017-05-16] MEDS: Sertraline* 25 MG TAB PO SCH (10:09)
[2017-05-16] MEDS: Labetalol TAB* 200 MG PO SCH ×2 (10:09→21:04)
[2017-05-16] MEDS: Diltiazem CD CAP* 180 MG PO SCH (10:09)
[2017-05-16] MEDS: Sodium Polystyrene ORAL.SOL* 15 GM/60 ML BTL PO SCH (10:09)
[2017-05-16] MEDS ORDERED: Heparin DIALYSIS ONLY(*) 1,000 UNITS/ML VIAL DIALYSIS ONE (11:00)
[2017-05-16] MEDS: Cinacalcet TAB* 30 MG PO SCH (11:11)
[2017-05-16] MEDS: Azithromycin IV(*) 500 MG in NS 0.9% 250 ML* 250 ML IVPB SCH (18:10)
[2017-05-16] MEDS: ALPRAZolam TAB* 0.25 MG PO PRN (21:04)
[2017-05-16] MEDS: diPHENhydraMINE PO* 25 MG PO SCH (21:04)
[2017-05-17] MEDS: Morphine INJ* 4 MG/ML 1 ML CARPUJECT IV PRN ×4 (01:24→18:16)
[2017-05-17] MEDS: Omeprazole CAP* 20 MG PO SCH (05:24)
[2017-05-17] MEDS: Tiotropium CAP.INH* CAP.INH/18 MCG (USE ORDER SET !) INH SCH (08:10)
[2017-05-17] MEDS: Mometasone/Formoter 200/5 MDI INH SCH ×2 (08:10→20:44)
[2017-05-17] MEDS: Diltiazem CD CAP* 120 MG PO SCH (08:59)
[2017-05-17] MEDS: cloNIDine TAB* 0.1 MG PO SCH ×2 (08:59→20:38)
[2017-05-17] MEDS: Sevelamer TAB* 800 MG PO SCH ×3 (08:59→15:55)
[2017-05-17] MEDS: Docusate CAP* 100 MG PO SCH ×2 (08:59→20:40)
[2017-05-17] MEDS: Sertraline* 25 MG TAB PO SCH (09:00)
[2017-05-17] MEDS: Metoprolol Tartrate TAB* 25 MG PO SCH ×2 (09:00→20:38)
[2017-05-17] MEDS: Aspirin EC Low Dose* 81 MG TAB.EC PO SCH (09:00)
[2017-05-17] MEDS: predniSONE TAB* 20 MG PO SCH (09:00)
[2017-05-17] MEDS: Diltiazem CD CAP* 180 MG PO SCH (09:00)
[2017-05-17] MEDS: Labetalol TAB* 200 MG PO SCH ×2 (09:00→20:44)
[2017-05-17] MEDS: guaiFENesin ER TAB 600 MG PO SCH ×2 (09:00→20:36)
[2017-05-17] MEDS: Montelukast Sodium TAB* 10 MG PO SCH (09:00)
[2017-05-17] MEDS: Benzonatate CAP* 100 MG PO SCH ×2 (09:45→20:39)
[2017-05-17] MEDS: Apixaban* 5 MG TAB PO SCH ×2 (09:45→20:36)
[2017-05-17] MEDS: Cinacalcet TAB* 30 MG PO SCH (09:45)
[2017-05-17] MEDS: Sodium Polystyrene ORAL.SOL* 15 GM/60 ML BTL PO SCH (09:46)
[2017-05-17] MEDS: oxyCODONE TAB* 5 MG TAB PO PRN ×3 (09:49→20:37)
--- NOTE | 2017-05-17 12:23 | PN ---
Subjective Date of Service: 05/17/17 Interval History: Pt c/o cough whenever she tries to sleep and feels very poorly due to it. Denies cough when sitting up. Had been ongoing x several months. Objective Active Medications: Acetaminophen (Tylenol Tab*) 650 mg PO Q6H PRN PRN Reason: FEVER/PAIN Last Admin: 05/15/17 09:13 Dose: 650 mg Acetaminophen/Codeine Phosphate (Tylenol/Codeine 30 Mg Tab*) 1 tab PO BEDTIME [facility] Albuterol/Ipratropium (Duoneb (Albuterol 2.5 Mg/Ipratropium 0.5 Mg)) 1 neb INH Q4H PRN PRN Reason: SOB/WHEEZING Alprazolam (Xanax Tab*) 0.25 mg PO TID PRN PRN Reason: ANXIETY Last Admin: 05/16/17 21:04 Dose: 0.25 mg Apixaban (Eliquis*) 5 mg PO BID [facility] Last Admin: 05/17/17 09:45 Dose: 5 mg Aspirin (Aspirin Ec Low Dose*) 81 mg PO DAILY [facility] Last Admin: 05/17/17 09:00 Dose: 81 mg Benzonatate (Tessalon Cap*) 100 mg PO BID [facility] Last Admin: 05/17/17 09:45 Dose: 100 mg Cinacalcet (Sensipar Tab*) 90 mg PO DAILY [facility] Last Admin: 05/17/17 09:45 Dose: 90 mg Clonidine HCl (Catapres Tab*) 0.3 mg PO BID [facility] Last Admin: 05/17/17 08:59 Dose: 0.3 mg Diltiazem HCl (Cardizem Cd Cap*) 180 mg PO DAILY [facility] Last Admin: 05/17/17 09:00 Dose: 180 mg Diltiazem HCl (Cardizem Cd Cap*) 120 mg PO DAILY [facility] Last Admin: 05/17/17 08:59 Dose: 120 mg Diphenhydramine HCl (Benadryl Po*) 25 mg PO BEDTIME [facility] Last Admin: 05/16/17 21:04 Dose: 25 mg Docusate Sodium (Colace Cap*) 200 mg PO BID [facility] Last Admin: 05/17/17 08:59 Dose: 200 mg Guaifenesin (Mucinex*) 1,200 mg PO BID [facility] Last Admin: 05/17/17 09:00 Dose: 1,200 mg Azithromycin 500 mg/ Sodium (Chloride) 250 mls @ 250 mls/hr IVPB Q24H [facility] Last Admin: 05/16/17 18:10 Dose: 250 mls/hr Labetalol HCl (Trandate Tab*) 200 mg PO BID [facility] Last Admin: 05/17/17 09:00 Dose: 200 mg Melatonin (Melatonin (Nf)) 3 mg PO BEDTIME PRN; Protocol PRN Reason: Sleep Metoprolol Tartrate (Lopressor Tab*) 75 mg PO BID [facility] Last Admin: 05/17/17 09:00 Dose: 75 mg Mometasone Furoate/Formoterol Fumar (Dulera 200/5 Mdi*) 2 puff INH BID [facility] Last Admin: 05/17/17 08:10 Dose: 2 puff Montelukast Sodium (Singulair Tab*) 10 mg PO DAILY [facility] Last Admin: 05/17/17 09:00 Dose: 10 mg Morphine Sulfate (Morphine Inj (Syringe)*) 4 mg IV Q4H PRN PRN Reason: PAIN Last Admin: 05/17/17 05:24 Dose: 4 mg Nicotine (Nicotine Inhaler*) 10 mg INH Q2H PRN PRN Reason: CRAVING Last Admin: 05/16/17 02:39 Dose: 10 mg Omeprazole (Prilosec Cap*) 20 mg PO DAILY@0600 [facility] Last Admin: 05/17/17 05:24 Dose: 20 mg Ondansetron HCl (Zofran Inj*) 4 mg IV Q6H PRN PRN Reason: NAUSEA Last Admin: 05/16/17 05:01 Dose: 4 mg Oxycodone HCl (Roxycodone Tab*) 10 mg PO Q4H PRN PRN Reason: PAIN Last Admin: 05/17/17 09:49 Dose: 10 mg Polyethylene Glycol/Electrolytes (Miralax*) 17 gm PO DAILY PRN PRN Reason: CONSTIPATION Prednisone (Deltasone Tab*) 40 mg PO DAILY [facility] Last Admin: 05/17/17 09:00 Dose: 40 mg Sertraline HCl (Zoloft*) 25 mg PO DAILY [facility] Last Admin: 05/17/17 09:00 Dose: 25 mg Sevelamer Carbonate (Renvela Tab*) 4,000 mg PO AC [facility] Last Admin: 05/17/17 08:59 Dose: 4,000 mg Sodium Polystyrene Sulfonate (Kayexalate Oral.Tonya*) 15 gm PO DAILY [facility] Last Admin: 05/17/17 09:46 Dose: 15 gm Tiotropium [place] (Spiriva Cap.Inh*) 1 cap INH DAILY [facility] Last Admin: 05/17/17 08:10 Dose: 1 cap Vital Signs - 8 hr 05/17/17 05/17/17 05/17/17 05:24 06:17 07:32 Temperature 98.1 F Pulse Rate 85 Respiratory 16 16 20 Rate Blood Pressure 152/95 (mmHg) O2 Sat by Pulse 100 Oximetry 05/17/17 05/17/17 05/17/17 08:00 08:12 09:49 Temperature Pulse Rate 76 Respiratory 18 18 18 Rate Blood Pressure (mmHg) O2 Sat by Pulse 98 Oximetry 05/17/17 12:12 Temperature 98.3 F Pulse Rate 76 Respiratory 20 Rate Blood Pressure 166/116 (mmHg) O2 Sat by Pulse 100 Oximetry Oxygen Devices in Use Now: Nasal Cannula - at 2L Appearance: 46 yo f in nAd, aAOx3 Eyes: No Scleral Icterus, PERRLA Ears/Nose/Mouth/Throat: NL Teeth, Lips, Gums, Mucous Membranes Moist Neck: NL Appearance and Movements; NL JVP, Trachea Midline Respiratory: Symmetrical Chest Expansion and Respiratory Effort, - - coarse breath sounds at b/l bases Cardiovascular: - - irregular Abdominal: NL Sounds; No Tenderness; No Distention, No Hepatosplenomegaly Lymphatic: No Cervical Adenopathy Extremities: No Edema, No Clubbing, Cyanosis, - - left thigh fistula with positive thrill Skin: No Rash or Ulcers, No Nodules or Sclerosis Neurological: Alert and Oriented x 3, NL Muscle Strength and Tone Result Diagrams: 05/15/17 06:45 05/15/17 06:45 Additional Lab and Data: . Microbiology and Other Data: Microbiology 05/15/17 07:15 Nasal Screen MRSA (PCR)(RON) - Final Nasal Mrsa Negative Assess/Plan/Problems-Billing Assessment: This is a 46 yo female with ESRD, COPD, CAD, afib, h/o complicated PE, chronic anemia, HTN, HLD, mitral and aortic valve replacements who presents with chest pain, cough and SOB admitted with COPD exacerbation. - Patient Problems (1) COPD exacerbation Comment: Acute complaints of CP, cough and SOB appear to be secondary to a viral syndrome inducing a COPD exacerbation Cough when lying down is related likely to fluid retention in this pt on HD. Offered codeine as a cough suppressant and semirecumbent position when sleeping Cont corticosteroids Cont inhaled therapies and azithromycin,Robitussin AC Screen for influenza neg (2) Atrial fibrillation with RVR Comment: Improved rate control after IV bolus cardizem in the ER Cont usual AV vi blocking agents (3) Anemia Comment: Chronic anemia secondary to ESRD Hgb near baseline ~10 g/dl (4) Troponin I above reference range Comment: chronic, due to ESRD (5) HTN (hypertension) Comment: Improved control since dialysis yesterday Cont home medications and cont to monitor (6) Chronic pain Comment: Cont usual home narcotics Status and Disposition: Cont hospital stay, patient notes no improvement in symptoms since admission. Anticipate dc home tomorrow for HD at 10 AM.
[2017-05-17] MEDS: hydrALAZINE IV* 20 MG/ML VIAL IV SLOW PU PRN (15:56)
[2017-05-17] MEDS: Azithromycin IV(*) 500 MG in NS 0.9% 250 ML* 250 ML IVPB SCH (18:16)
[2017-05-17] MEDS: diPHENhydraMINE PO* 25 MG PO SCH (20:38)
[2017-05-17] MEDS ORDERED: Acetaminop/Codeine 30 MG TAB* 1 TAB (300 MG/30 MG) PO SCH (21:00)
[2017-05-18] MEDS: Morphine INJ* 4 MG/ML 1 ML CARPUJECT IV PRN ×3 (00:51→08:47)
[2017-05-18] MEDS: Omeprazole CAP* 20 MG PO SCH (06:18)
[2017-05-18 07:38] VITALS: BP 177/120
[2017-05-18] MEDS: Sodium Polystyrene ORAL.SOL* 15 GM/60 ML BTL PO SCH (08:29)
[2017-05-18] MEDS: Diltiazem CD CAP* 120 MG PO SCH (08:30)
[2017-05-18] MEDS: Montelukast Sodium TAB* 10 MG PO SCH (08:30)
[2017-05-18] MEDS: Metoprolol Tartrate TAB* 25 MG PO SCH (08:30)
[2017-05-18] MEDS: predniSONE TAB* 20 MG PO SCH (08:30)
[2017-05-18] MEDS: Cinacalcet TAB* 30 MG PO SCH (08:30)
[2017-05-18] MEDS: cloNIDine TAB* 0.1 MG PO SCH (08:30)
[2017-05-18] MEDS: Sevelamer TAB* 800 MG PO SCH (08:30)
[2017-05-18] MEDS: Diltiazem CD CAP* 180 MG PO SCH (08:30)
[2017-05-18] MEDS: Labetalol TAB* 200 MG PO SCH (08:30)
[2017-05-18] MEDS: hydrALAZINE IV* 20 MG/ML VIAL IV SLOW PU PRN (08:31)
[2017-05-18] MEDS: guaiFENesin ER TAB 600 MG PO SCH (08:31)
[2017-05-18] MEDS: Aspirin EC Low Dose* 81 MG TAB.EC PO SCH (08:31)
[2017-05-18] MEDS: Benzonatate CAP* 100 MG PO SCH (08:31)
[2017-05-18] MEDS: Sertraline* 25 MG TAB PO SCH (08:31)
[2017-05-18] MEDS: Apixaban* 5 MG TAB PO SCH (08:31)
[2017-05-18] MEDS: Tiotropium CAP.INH* CAP.INH/18 MCG (USE ORDER SET !) INH SCH (09:01)
[2017-05-18] MEDS: Mometasone/Formoter 200/5 MDI INH SCH (09:02)
--- NOTE | 2017-05-18 13:01 | DS ---
CC: Dr. Osorio * DISCHARGE SUMMARY: DATE OF ADMISSION: 05/15/17 DATE OF DISCHARGE: 05/18/17 PRIMARY CARE PROVIDER: Provider from [facility]. The patient does not remember the name. DISCHARGE DIAGNOSES: 1. Chronic obstructive pulmonary disease exacerbation. 2. Elevated troponin likely due to fluid overload in a patient who needed dialysis, as well as end-stage renal disease. 3. Exacerbation of chronic pleuritic chest pain when the patient is in fluid overload. PAST MEDICAL HISTORY: 1. History of end-stage renal disease, on dialysis. 2. 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 3. Status post transaortic valve replacement with aortic valve replacement. 4. History of mitral valve replacement. 5. History of pulmonary hemorrhage. 6. History of superior vena cava syndrome. 7. History of chronic obstructive pulmonary disease, oxygen dependent at 2 L. 8. History of coronary artery disease. 9. History of chronic diastolic congestive heart failure. 10. Chronic atrial fibrillation. 11. History of endocarditis. 12. Anemia of renal disease. 13. History of uncontrolled hypertension. 14. Dyslipidemia. 15. Depression and anxiety. 16. History of chronic pain. MEDICATIONS AT DISCHARGE: Include; 1. Azithromycin 250 mg p.o. daily for remaining 2 days. 2. Prednisone 50 mg daily for remaining 3 days. The remaining medications are unchanged and include; 1. DuoNeb on a p.r.n. basis. 2. Xanax 0.25 mg 3 times a day p.r.n. 3. Eliquis 5 mg b.i.d. 4. Aspirin 81 mg daily. 5. Vitamin B Complex 1 capsule daily. 6. Sensipar 90 mg daily. 7. Clonidine 0.3 mg b.i.d. 8. Cardizem CD 300 mg daily. 9. Benadryl on a p.r.n. basis. 10. Labetalol 200 mg b.i.d. 11. Lidocaine cream on a p.r.n. basis. 12. Metoprolol tartrate 75 mg b.i.d. 13. Dulera 200/5, 2 inhalations b.i.d. 14. Singulair 10 mg daily. 15. Nitroglycerin on a p.r.n. basis tablet. 16. Oxycodone 10 mg every 4 to 6 hours p.r.n. 17. MiraLAX 17 g daily p.r.n. 18. Zoloft 25 mg daily. 19. Renvela 4000 mg 3 times a day with meals. 20. Kayexalate 15 g daily and as per dialysis instructions. 21. Spiriva 1 inhalation daily. 22. Vitamin E 400 units b.i.d. PHYSICAL EXAMINATION: Vital Signs: Prior to discharge; blood pressure 177/120 , heart rate of 83 and regular, respiratory rate 18, oxygen saturation 100% on 2 L oxygen nasal cannula, temperature 97.6. General: The patient is a pleasant 46- year-old female who is in no acute distress. Alert, awake, and oriented x3. HEENT: Head is atraumatic, normocephalic. Eyes: Pupils are equal and reactive to light and accommodation. Oropharynx clear. Mucosa moist. Neck: Supple. No JVD. No bruits bilaterally. Cardiovascular: Irregularly irregular rhythm. No murmur. Respiratory: Coarse breath sounds bilaterally. No wheezes, crackles at bilateral bases. Abdomen: Soft, nontender. Bowel sounds present in all 4 quadrants. Extremities: There is no edema. Pulses +2 bilaterally. There is no clubbing or cyanosis. The patient has AV fistula for dialysis localized in her left anterior thigh with positive thrill. Skin: No ecchymotic areas or rashes noted. Please note that the patient's blood pressure was elevated during this evaluation, but the last vitals were obtained just before her medications were given. Her medications were given within the past 20 minutes. Please also note that the patient is being discharged directly to dialysis unit to be dialyzed prior to going home. HOSPITALIZATION COURSE: Juany Joseph is a 46-year-old female who has been on hemodialysis for the past 15 years. She frequently visits emergency department in our hospital and presents usually with evidence of fluid overload and pulmonary edema due to that, chest pain and hypoxemia, as well as uncontrolled blood pressure. This time her presentation was very similar. The patient was admitted to the hospital and treated with dialysis. She received 2 dialysis treatments in a row and that was and then Friday. On Friday, she still feels poorly and complained of cough whenever she is trying to lie down. Cough has been chronic and ongoing for several months. I discussed the case with Dr. Osorio. The patient likely has evidence of some fluid overload and whenever she does it, she unfortunately has problems with cough, likely symptoms of paroxysmal nocturnal dyspnea. That likely is going to be a chronic problem for the patient. The patient was recommended to sleep with head of bed elevated. She also is continued on her oxycodone which she takes routinely. The patient was treated with steroids and azithromycin for COPD exacerbation, which course is going to be finished while outpatient. The patient is being discharged currently to hemodialysis unit and then could go home. The patient was recommended to follow up with primary care provider from [place] in approximately 4 to 7 days. Her next dialysis treatment is on 05/20/17, after today's dialysis. Please note that this is a short summary of the patient's hospital stay. Please refer to further medical records for details. TIME SPENT: Approximately 40 minutes were spent on the patient's discharge. [id number]/[facility] #: [id number] SHI
== END 2017-05-18 10:00 | disposition home or self-care (01) | DRG 190 ==
LOC: ED 21:22 → MEDTELE 05-15 05:44 → OBSVTOIN 05-16 11:19
PROVIDERS: ADMIT Hospitalist; ATTEND Internal Medicine
PROC: 5A1D70Z Performance of Urinary Filtration, Intermittent, Less than 6 Hours Per Day (ICD-10-PCS; principal; 2017-05-15)
PROC: 5A1D70Z Performance of Urinary Filtration, Intermittent, Less than 6 Hours Per Day (ICD-10-PCS; 2017-05-16)
DX: J44.1 Chronic obstructive pulmonary disease with (acute) exacerbation (principal); N18.6 End stage renal disease; I13.2 Hypertensive heart and chronic kidney disease with heart failure and with stage 5 chronic kidney disease, or end stage renal disease; Z99.81 Dependence on supplemental oxygen; E87.70 Fluid overload, unspecified; I48.2 Chronic atrial fibrillation; I50.32 Chronic diastolic (congestive) heart failure; R74.8 Abnormal levels of other serum enzymes; R07.81 Pleurodynia; I25.10 Atherosclerotic heart disease of native coronary artery without angina pectoris; D63.1 Anemia in chronic kidney disease; F32.9 Major depressive disorder, single episode, unspecified; F41.9 Anxiety disorder, unspecified; G89.29 Other chronic pain; E78.5 Hyperlipidemia, unspecified; R09.02 Hypoxemia; E66.3 Overweight; M19.90 Unspecified osteoarthritis, unspecified site; F17.210 Nicotine dependence, cigarettes, uncomplicated; Z99.2 Dependence on renal dialysis; Z86.711 Personal history of pulmonary embolism; Z86.718 Personal history of other venous thrombosis and embolism; Z95.2 Presence of prosthetic heart valve; Z79.01 Long term (current) use of anticoagulants; Z79.82 Long term (current) use of aspirin; I25.2 Old myocardial infarction; Z88.0 Allergy status to penicillin; Z88.1 Allergy status to other antibiotic agents; Z88.8 Allergy status to other drugs, medicaments and biological substances; Z91.041 Radiographic dye allergy status; Z95.1 Presence of aortocoronary bypass graft; Z90.710 Acquired absence of both cervix and uterus; Z95.3 Presence of xenogenic heart valve; Z68.28 Body mass index [BMI] 28.0-28.9, adult; Z95.5 Presence of coronary angioplasty implant and graft; Z82.49 Family history of ischemic heart disease and other diseases of the circulatory system; Z83.3 Family history of diabetes mellitus; Z80.1 Family history of malignant neoplasm of trachea, bronchus and lung
CPT/HCPCS: 36415; 71010; 80048; 80053; 83605; 83880; 84484; 85025; 85060; 85610; 85730; 87502; 87641; 90935; 93005; 94640; 94760; 96365; 96366; 96375; 96376; 99406; A9270-GY; G0257; G0378; J0360; J0456; J1170; J1644; J1940; J2270; J2405; J2920; J2930; J7512

== ENCOUNTER 2017-05-23 19:25 | Inpatient (IN) | payer MEDICARE, MEDICAID ==
[2017-05-23] MEDS ORDERED: methylPREDNISolone 125 MG* 2 ML VIAL IV ONE (19:41)
[2017-05-23] MEDS ORDERED: Albuterol/Ipratropium NEB.SOL* Albuterol 2.5 MG/Ipratropium 0.5 MG 3 ML INH ONE (19:41)
[2017-05-23] MEDS ORDERED: hydrALAZINE IV* 20 MG/ML VIAL IV SLOW PU ONE (20:03)
[2017-05-23] MEDS ORDERED: Morphine INJ* 4 MG/ML 1 ML CARPUJECT ONE (20:07)
[2017-05-23] MEDS ORDERED: Ondansetron INJ* 2 MG/ML VIAL ONE (20:07)
--- NOTE | 2017-05-23 20:10 | RAD ---
INDICATION: Shortness of breath. COMPARISON: Comparison is made with a prior study from May 15, 2017. TECHNIQUE: A portable view of the chest was obtained. FINDINGS: The patient is status post sternotomy and cardiac valve surgery. The heart is moderately enlarged and unchanged. There is prominence of the interstitial markings and bilateral patchy infiltrates. IMPRESSION: FINDINGS SUGGESTIVE OF CONGESTIVE HEART FAILURE OR PNEUMONIA DEMONSTRATING INTERVAL PROGRESSION.
[2017-05-23] MEDS ORDERED: Morphine INJ* 4 MG/ML 1 ML CARPUJECT IV ONE (20:12)
[2017-05-23] MEDS ORDERED: Polyethylene Glycol 3350* 17 GM PACKET PO PRN (20:22)
[2017-05-23 20:23] LABS: EGFR Non-African American 4.1 (>60)
[2017-05-23 20:27] LABS: ABS Basophils 0.1 10^3/ul (0-0.2); ABS Eosinophils 0.2 10^3/ul (0-0.6); ABS Lymphocytes 0.9 10^3/ul (1.0-4.8); ABS Monocytes 0.8 10^3/ul (0-0.8); ABS Neutrophils 7.5 10^3/ul (1.5-7.7); ABS Nucleated RBC 0.01 10^3/ul; Eosinophil % 1.7 % (0-6); Hematocrit 29 % (35-47); Hemoglobin 9.9 g/dl (12.0-16.0); Lymphocyte % 9.8 % (25-47); Mean Corpuscular HGB Conc 34 g/dl (31-36); Mean Corpuscular Hemoglobin 35 pg (27-31); Mean Corpuscular Volume 103 fL (80-97); Mean Platelet Volume 9 um3 (7.4-10.4); Nucleated Red Blood Cells % 0.1; Platelet Count 142 10^3/ul (150-450); Red Blood Count 2.85 10^6/ul (4.0-5.4); Red Cell Distribution Width 17 % (10.5-15); White Blood Count 9.5 10^3/ul (3.5-10.8)
[2017-05-23] MEDS ORDERED: Diltiazem IV* 5 MG/ML 5 ML VIAL (for loading dose/IV Push) (25 MG) IV SLOW PU ONE (20:28)
--- NOTE | 2017-05-23 20:38 | ED ---
Memo Greenwood Gabriel, scribed for Baldomero Garza on 05/23/17 at 1943 . HPI Chest Pain - HPI Summary HPI Summary: This patient is a 48 year old F BIBA to [facility] with a chief complaint of CP that began several weeks ago. The patient rates the pain 9/10 in severity and describes it as pressure. Patient reports SOB, chills, and vomiting. Patient denies ABD pain. She had dialysis 05/20/17 but missed her treatment on . She is on 2L of NC at home. - History of Current Complaint Chief Complaint: EDChestPainROMI Time Seen by Provider: 05/23/17 19:35 Hx Obtained From: Patient, EMS Onset/Duration: Started Weeks Ago, Still Present Initial Severity: Moderate Current Severity: Moderate Pain Intensity: 9 Pain Scale Used: 0-10 Numeric Chest Pain Radiates: No Character: Pressure/Squeezing Associated Signs and Symptoms: Positive: Other: - chills, vomiting, SOB - Additional Pertinent History Primary Care Physician: VIRA - Allergy/Home Medications Allergies/Adverse Reactions: Allergies Allergy/AdvReac Type Severity Reaction Status Date / Time Iodixanol [From Visipaque] Allergy Severe Airway Verified 05/15/17 00:07 Obstruction Lisinopril Allergy Severe Difficulty Verified 05/15/17 00:07 Breathing Penicillins Allergy Severe HIVES,SWELLING Verified 05/15/17 00:07 THROAT Cephalosporins Allergy not Verified 05/15/17 00:07 specified PMH/Surg Hx/FS Hx/Imm Hx Previously Healthy: No Endocrine/Hematology History: Reports: Hx Anticoagulant Therapy, Hx Blood Transfusions, Hx Anemia, Hx Unexplained Bleeding Denies: Hx Blood Disorders, Hx Bone Marrow Disease, Hx Diabetes, Hx Systemic Lupus Erythematosus, Hx Sickle Cell Disease, Hx Thyroid Disease, Other Endocrine /Hematological Disorders Cardiovascular History: Reports: Hx Angina, Hx Cardiomegaly, Hx Congestive Heart Failure, Hx Coronary Artery Disease, Hx Deep Vein Thrombosis, Hx Embolism , Hx Hypercholesterolemia, Hx Hypertension, Hx Myocardial Infarction, Hx Valvular Heart Disease, Other Cardiovascular Problems/Disorders - 2 artificial heart valves; Hx of endocarditis Denies: Hx Aneurysm, Hx Angioplasty, Hx Auto Implanted Cardiovert Defib, Hx Cardiac Arrest, Hx Congenital Heart Disease, Hx Hypotension, Hx Pacemaker/ICD, Hx Peripheral Vascular Disease, Hx Rheumatic Fever, Hx Syncope Respiratory History: Reports: Hx Asthma, Hx Chronic Obstructive Pulmonary Disease (COPD), Hx Pneumonia, Hx Pulmonary Edema, Hx Pulmonary Embolism Denies: Hx Chronic Bronchitis, Hx Cystic Fibrosis, Hx Lung Cancer, Hx Pleural Effusion, Hx Seasonal Allergies, Hx Sleep Apnea, Other Respiratory Problems/Disorders History: Reports: Hx Acute Renal Failure, Hx Chronic Renal Failure, Hx Dialysis - ESRD, [place] ON T//FRI, Hx Renal Disease Denies: Hx Benign Prostatic Hyperplasia, Hx Kidney Infection, Hx Kidney Stones, Other Problems/Disorders Musculoskeletal History: Reports: Hx Arthritis, Hx Back Problems Denies: Hx Bursitis, Hx Congenital Bone Abnormalities, Hx Fibromyalgia, Hx Gout, Hx Orthopedic Injury, Hx Osteoporosis, Hx Scoliosis, Hx Tendonitis, Other Musculoskeletal History Sensory History: Denies: Hx Contacts or Glasses, Hx Hearing Aid Opthamlomology History: Denies: Hx Contacts or Glasses Neurological History: Reports: Hx Headaches Denies: Hx Dementia, Hx Developmental Delay, Hx Migraine, Hx Nerve Disease, Hx Seizures, Hx Spinal Cord Injury, Hx Transient Ischemic Attacks (TIA), Other Neuro Impairments/Disorders Psychiatric History: Reports: Hx Anxiety, Hx Depression Denies: Hx Attention Deficit Hyperactivity Disorder, Hx Eating Disorder, Hx Panic Disorder, Hx Post Traumatic Stress Disorder, Hx Inpatient Treatment, Hx Community Mental Health Tx, Hx Schizophrenia, Hx Bipolar Disorder, Hx Suicide Attempt, Hx of Violent Episodes Against Others, Hx Substance Abuse, Other Psychiatric Issues/Disorders - Surgical History Surgery Procedure, Year, and Place: bilateral knees, dialysis tube placed in abdomen( out), fistula tube placement in arm for dialysis Lt arm has been revised. waiting out ok to use [id number], open heart valve replacement, hysterectomy, stents Hx Anesthesia Reactions: No - Immunization History Date of Tetanus Vaccine: Unk Date of Influenza Vaccine: Unk Infectious Disease History: Yes Infectious Disease History: Reports: Hx of Known/Suspected MRSA Denies: Hx Clostridium Difficile, Hx Hepatitis, Hx Human Immunodeficiency Virus (HIV), Hx Shingles, Hx Tuberculosis, Hx Known/Suspected VRE, History Other Infectious Disease, Traveled Outside the [place] in Last 30 Days - Family History Known Family History: Positive: None - no malignant hyperthermia. no anesthesia rxn., Hypertension - Mother, Diabetes - Mother, Other - negative FHx for malignant hyperthermia and anesthesia rxn. Family History: Father -- Lung CA - Social History Alcohol Use: None Hx Substance Use: No Substance Use Type: Reports: None Hx Tobacco Use: Yes Smoking Status (MU): Light Every Day Tobacco Smoker Type: Cigarettes Amount Used/How Often: 1 cigarettes a day Length of Time of Smoking/Using Tobacco: 15 Have You Smoked in the Last Year: Yes Review of Systems Positive: Chills Positive: Chest Pain Positive: Shortness Of Breath Positive: Vomiting. Negative: Abdominal Pain All Other Systems Reviewed And Are Negative: Yes Physical Exam - Summary Physical Exam Summary: Appearance: Well appearing. Moderate distress Skin: warm, dry, reflects adequate perfusion Head/face: normal Eyes: EOMI, HUMZA ENT: normal Neck: supple, non-tender Respiratory: Bilateral wheeze Cardiovascular: RRR, pulses symmetrical Abdomen: non-tender, soft Bowel: present Musculoskeletal: normal, strength/ROM intact. Bilateral pedal edema Neuro: normal, sensory motor intact, A&Ox3 Triage Information Reviewed: Yes Vital Signs On Initial Exam: Initial Vitals Temp Pulse Resp BP Pulse Ox 98.9 F 125 23 199/142 95 05/23/17 19:33 05/23/17 19:33 05/23/17 19:33 05/23/17 19:33 05/23/17 19:33 Vital Signs Reviewed: Yes Diagnostics - Vital Signs Vital Signs Temp Pulse Resp BP Pulse Ox 05/23/17 19:33 98.9 F 125 23 199/142 95 - Laboratory Lab Results: Lab Results 05/23/17 05/23/17 05/23/17 Range/Units 20:00 20:00 20:00 WBC 9.5 (3.5-10.8) 10^3/ul RBC 2.85 L (4.0-5.4) 10^6/ul Hgb 9.9 L (12.0-16.0) g/dl Hct 29 L (35-47) % MCV 103 H (80-97) fL MCH 35 H (27-31) pg MCHC 34 (31-36) g/dl RDW 17 H (10.5-15) % Plt Count 142 L (150-450) 10^3/ul MPV 9 (7.4-10.4) um3 Neut % (Auto) 78.5 (38-83) % Lymph % (Auto) 9.8 L (25-47) % [place] % (Auto) 9.0 (1-9) % Eos % (Auto) 1.7 (0-6) % Baso % (Auto) 1.0 (0-2) % Absolute Neuts (auto) 7.5 (1.5-7.7) 10^3/ul Absolute Lymphs (auto) 0.9 L (1.0-4.8) 10^3/ul Absolute Monos (auto) 0.8 (0-0.8) 10^3/ul Absolute Eos (auto) 0.2 (0-0.6) 10^3/ul Absolute Basos (auto) 0.1 (0-0.2) 10^3/ul Absolute Nucleated RBC 0.01 10^3/ul Nucleated RBC % 0.1 Sodium 135 (133-145) mmol/L Potassium 3.9 (3.5-5.0) mmol/L Chloride 93 L (101-111) mmol/L Carbon Dioxide 27 (22-32) mmol/L Anion Gap 15 H (2-11) mmol/L BUN 64 H (6-24) mg/dL Creatinine 10.20 H (0.51-0.95) mg/dL Est GFR ( Amer) 5.3 (>60) Est GFR (Non-Af Amer) 4.1 (>60) BUN/Creatinine Ratio 6.3 L (8-20) Glucose 93 (70-100) mg/dL Lactic Acid (0.5-2.0) mmol/L Calcium 9.1 (8.6-10.3) mg/dL Total Bilirubin 0.80 (0.2-1.0) mg/dL AST 15 (13-39) U/L ALT 16 (7-52) U/L Alkaline Phosphatase 75 (34-104) U/L Troponin I 0.12 H* (<0.04) ng/mL B-Natriuretic Peptide 3635 H ( - 100) pg/mL Total Protein 6.5 (6.4-8.9) g/dL Albumin 3.9 (3.2-5.2) g/dL Globulin 2.6 (2-4) g/dL Albumin/Globulin Ratio 1.5 (1-3) 05/23/ Range/Units 20:00 WBC (3.5-10.8) 10^3/ul RBC (4.0-5.4) 10^6/ul Hgb (12.0-16.0) g/dl Hct (35-47) % MCV (80-97) fL MCH (27-31) pg MCHC (31-36) g/dl RDW (10.5-15) % Plt Count (150-450) 10^3/ul MPV (7.4-10.4) um3 Neut % (Auto) (38-83) % Lymph % (Auto) (25-47) % [place] % (Auto) (1-9) % Eos % (Auto) (0-6) % Baso % (Auto) (0-2) % Absolute Neuts (auto) (1.5-7.7) 10^3/ul Absolute Lymphs (auto) (1.0-4.8) 10^3/ul Absolute Monos (auto) (0-0.8) 10^3/ul Absolute Eos (auto) (0-0.6) 10^3/ul Absolute Basos (auto) (0-0.2) 10^3/ul Absolute Nucleated RBC 10^3/ul Nucleated RBC % Sodium (133-145) mmol/L Potassium (3.5-5.0) mmol/L Chloride (101-111) mmol/L Carbon Dioxide (22-32) mmol/L Anion Gap (2-11) mmol/L BUN (6-24) mg/dL Creatinine (0.51-0.95) mg/dL Est GFR ( Amer) (>60) Est GFR (Non-Af Amer) (>60) BUN/Creatinine Ratio (8-20) Glucose (70-100) mg/dL Lactic Acid 0.8 (0.5-2.0) mmol/L Calcium (8.6-10.3) mg/dL Total Bilirubin (0.2-1.0) mg/dL AST (13-39) U/L ALT (7-52) U/L Alkaline Phosphatase (34-104) U/L Troponin I (<0.04) ng/mL B-Natriuretic Peptide ( - 100) pg/mL Total Protein (6.4-8.9) g/dL Albumin (3.2-5.2) g/dL Globulin (2-4) g/dL Albumin/Globulin Ratio (1-3) Result Diagrams: 05/23/17 20:00 05/23/17 20:00 Lab Statement: Any lab studies that have been ordered have been reviewed, and results considered in the medical decision making process. - Radiology CXR Radiology Interpretation Completed By: Radiologist - FINDINGS SUGGESTIVE OF CONGESTIVE HEART FAILURE OR PNEUMONIA DEMONSTRATING INTERVAL PROGRESSION. ED physician has reviewed this radiology report. - EKG 1933 Cardiac Rate: Tachycardia EKG Rhythm: Atrial Fibrillation - at 111 BPM EKG Interpretation: RVR Chest Pain Course/Dx - Course Assessment/Plan: This patient is a 48 year old F BIBA to [facility] with a chief complaint of CP that began several weeks ago. She had dialysis 05/20/17 but missed her treatment on 05/22/17. An EKG reveals RVR Afib at 111. CXR reveals , per radiologist, FINDINGS SUGGESTIVE OF CONGESTIVE HEART FAILURE OR PNEUMONIA DEMONSTRATING. INTERVAL PROGRESSION. Bloodwork obtained and patient will be admitted for end stage renal disease, pulmonary edema, and respiratory failure. In the ED course the patient was given Duoneb, Apresoline, Solu-medrol, morphine, and Zofran. The patient is agreeable with this plan. d/w dr bernal that labs are pending and to follow up on floor. - Chest Pain Differential Diagnosis/HQI/PQRI: ACS, CHF, Lower Respiratory Infection, Pulmonary Edema, Other: - esrd on hd/a fib with rvr - Diagnoses Provider Diagnoses: ESRD (end stage renal disease) on dialysis, Pulmonary edema, Respiratory failure - Provider Notifications Discussed Care Of Patient With: Blake Bernal Time Discussed With Above Provider: 19:48 Instructed by Provider To: Admit As Inpatient - Critical Care Time Critical Care Time: 30-74 min Discharge - Discharge Plan Condition: Critical Disposition: ADMITTED TO [facility] Referrals: No Primary Care Phys,NOPCP [Primary Care Provider] - Consult Consult: 20:12 We discussed patient care with Dr. Osorio, nephrology and he stated he will arrange for the patient to have dialysis. The documentation as recorded by the Memo sosa Gabriel accurately reflects the service I personally performed and the decisions made by , Baldomero Garza.
[2017-05-23] MEDS ORDERED: Albuterol/Ipratropium NEB.SOL* Albuterol 2.5 MG/Ipratropium 0.5 MG 3 ML INH PRN (20:43)
--- NOTE | 2017-05-23 21:13 | PN ---
Hospitalist Progress Note Date of Service: 05/23/17 . Hospitalist Attending Note See Full H&P by PAL Sandra. Interviewed and examined patient and discussed case with PAL Sandra Ms. Joseph is a well-known 46 y.o. patient with ESRD who missed dialysis yesterday and now presents with acute respiratory failure and pulmonary edema and malignant hypertension. Emergency dialysis is being actively ordered and is absolutely necessary as a life sustaining therapy in this case. Physical Exam: Vitals reviewed Chest: rales throughout consistent with pulmonary edema Heart: tachycardic, accentuated sounds Abd: obese, non-tender Extremities: + fistula; LOPEZ Neurology: brisk reflexes; +papilledema noted Psych: anxious secondary to resp distress Lymph: NAD Data: Cr elevated c/w ESRD BNP: 3630 CXR: pulmonary edema biltarally A/P: 46 yo female with acute respiratory failure, pulmonary edema secondary to fluid overload in setting of missed hemodialysis with resultant malignant hypertension. 1.Emergent HD ordered 2.Rescue BiPAP 3.Agree with PAL Sandra on other detailed plans. .
[2017-05-23] MEDS: Mometasone/Formoter 200/5 MDI INH SCH (21:54)
[2017-05-23] MEDS: oxyCODONE TAB* 5 MG TAB PO PRN (22:18)
[2017-05-23] MEDS: Morphine INJ* 4 MG/ML 1 ML CARPUJECT IV PRN (22:18)
--- NOTE | 2017-05-23 23:42 | HP ---
CC: Dr. Osorio * [facility] MEDICINE HISTORY AND PHYSICAL: DATE OF ADMISSION: 05/23/17 PRIMARY CARE PHYSICIAN: Unknown. ATTENDING PHYSICIAN: Dr. Blake Bernal * (dictation provided by Neha Sandra NP). CHIEF COMPLAINT: Cough and shortness of breath with chest and back pain. HISTORY OF PRESENT ILLNESS: Ms. Joseph is a 46-year-old female with a past medical history of end-stage renal disease, on hemodialysis as well as COPD, on oxygen and CPAP at night at home and grossly uncontrolled hypertension, who presented to the hospital today with concern for shortness of breath, chest pain , back pain, and cough. Ms. Joseph is very short of breath at the time of my examination, so information from her is somewhat limited. She indicates that she has been feeling unwell for approximately 3 weeks. She was admitted to our hospital from 05/15/17 to 05/18/17, at which time she was treated for COPD exacerbation, chronic pleuritic chest pain, and shortness of breath related to [id number] respiratory failure due to pulmonary edema, due to end-stage renal dialysis, on HD. The patient reports that she has had persistent cough and persistent chest pain, which is made worse by cough and breathing. She has back pain, which is reproducible with palpation. She denies any nausea or vomiting or diarrhea. She has had no abdominal pain. She is supposed to have dialysis yesterday, which would be , 05/22/17. She states that she missed dialysis because she was feeling so poorly. She reportedly called the dialysis unit and told them that she was coming immediately to the emergency room; however, she did not present here until today. In the emergency room, Ms. Joseph had vital signs, which showed that she was tachycardic, running as high as 120s, now about a 105. She is on 4 L nasal cannula, satting 100%. She is tachypneic with a respiratory rate up into almost the 30s. She is hypertensive with blood pressure 199/142. She is clearly in respiratory distress with acute hypoxic respiratory failure. Chest x -ray shows that she has pulmonary vascular congestion, likely related to her end -stage renal disease on hemodialysis with missing dialysis yesterday. PAST MEDICAL HISTORY: 1. End-stage renal disease, on hemodialysis Friday, , and Friday. 2. DVT with PE, complicated by alveolar hemorrhage. 3. TAVR within prior porcine aortic valve replacement. 4. Mitral valve replacement. 5. Pulmonary hemorrhage. 6. Superior vena cava syndrome. 7. COPD, on oxygen and CPAP at night. 8. CAD with [place]. 9. Chronic diastolic congestive heart failure. 10. AFib. 11. Endocarditis. 12. Anemia of renal disease. 13. Hypertension. 14. Hyperlipidemia. 15. Depression. 16. Anxiety. MEDICATIONS: The patient states that she was on azithromycin and completed a course of that. She also is on a prednisone taper. Her medications are: 1. B complex with folic acid 1 tab p.o. daily. 2. Aspirin 81 mg p.o. daily. 3. Apixaban 5 mg p.o. b.i.d. 4. Albuterol with ipratropium inhaler 1 inhalation q.6 hours. 5. Alprazolam 0.25 mg p.o. t.i.d. p.r.n. 6. Lidocaine with prilocaine cream topically every other day. 7. Labetalol 200 mg p.o. b.i.d. 8. Diltiazem 300 mg p.o. daily. 9. Clonidine 0.3 mg p.o. b.i.d. 10. Cinacalcet 90 mg p.o. daily. 11. Benadryl 25 mg p.o. at bedtime. 12. Vitamin E 400 units p.o. b.i.d. 13. Spiriva 1 cap inhaled daily. 14. Kayexalate 15 g p.o. daily. 15. Sevelamer 4000 mg p.o. t.i.d. with meals. 16. Sertraline 25 mg p.o. daily. 17. Polyethylene glycol 17 g p.o. daily p.r.n. 18. Oxycodone 10 mg p.o. q.6 hours p.r.n. 19. Nitroglycerin 0.4 mg sublingually q.5 minutes p.r.n. 20. Singulair 10 mg p.o. daily. 21. Mometasone with formoterol 200/5 two puffs inhaled b.i.d. 22. Metoprolol tartrate 75 mg p.o. b.i.d. ALLERGIES: IODIXANOL, LISINOPRIL, PENICILLINS, and CEPHALOSPORINS. FAMILY HISTORY: Positive for hypertension. SOCIAL HISTORY: The patient smokes about 3 cigarettes a day. She denies any alcohol or drug use. She lives with her children and is disabled, and she states that her children are Evita De Los Santos and James De Los Santos are her healthcare proxies. REVIEW OF SYSTEMS: A 14-point review of systems was completed with Ms. Juany Joseph today and all those not mentioned above were negative. PHYSICAL EXAMINATION GENERAL: Ms. Joseph is sitting in the bed. She appears in distress and is tachypneic. She also appears anxious. VITAL SIGNS: Temperature 98.9, pulse rate 106, respiratory rate 26, O2 saturation 100% on 4 L nasal cannula, blood pressure 199/142. LUNGS: Diminished bilaterally. I am not able to appreciate any rhonchi or crackles or wheezing. HEART: S1, S2 and rapid, irregular. JVD present. ABDOMEN: Soft, nontender with bowel sounds positive x4. EXTREMITIES: No cyanosis or edema. NEURO: She is alert. She is oriented x3. She moves all extremities equally. There is no facial asymmetry or focal weakness. Extraocular movements are intact. SKIN: Intact. DIAGNOSTIC STUDIES/LAB DATA: WBC 9.5, hemoglobin 9.9, hematocrit 29, platelet count 142. Sodium 135, potassium 3.9, chloride 93, serum bicarbonate 27, BUN 64. The patient's anion gap is 15, creatinine 10.20, glucose 93. Troponin 0.12. BNP 3635. Chest x-ray is read as follows: "Findings suggestive of congestive heart failure or pneumonia demonstrating interval progression." EKG shows atrial fibrillation with a heart rate about 110. No evidence of ischemia. ASSESSMENT: Ms. Joseph is a 46-year-old female with a past medical history of end - stage renal disease, on hemodialysis, who missed dialysis yesterday because she states she was feeling unwell with cough, shortness of breath, chest pain, and back pain. This is very similar to her presentation on 05/15/17 and prior presentations before that. Our plans will be for inpatient admission to the intensive care unit for the followin. Shortness of breath with chest and back pain. The patient has chronic pleuritic chest pain that is exacerbated when she is in fluid overload. I have discussed the case with the dialysis nurse on-call sola, who is alert to Dr. Osorio and plans are for the patient to have dialysis within the hour. In the meantime, she will be on BiPAP and monitored closely in the intensive care unit. I at least thus far did not appreciate a significant component of chronic obstructive pulmonary disease exacerbation and plan to continue the prednisone, which she had been tapering at home. I do not see an indication for antibiotics as I do not see a clear indication that she has an infection as her white blood cell count is normal and she is afebrile. I think that read for the chest x-ray is likely more indicative of pulmonary edema. I have a very low suspicion for any pulmonary embolism as the patient as she is fully anticoagulated. The patient was placed on BiPAP prior to obtaining an ABG because the patient has very difficult stick for the blood draw and needed BiPAP emergently for respiratory distress. I do not plan to recheck that as we did not have a baseline this evening and I do not think that it would guide direct care beyond what is available by the overall clinical picture. 2. Atrial fibrillation with rapid ventricular response. I think this is secondary to her respiratory failure; however, her heart rates running about 110 now. Plan at this point is just to continue her home medications, which are due now and initiate dialysis as well as continue BiPAP, which was just started. If her heart rate remains uncontrolled, plan to provide diltiazem IV as needed. She will continue on her apixaban for anticoagulation. 3. History of end-stage renal disease, on hemodialysis. Plan to continue dialysis and the patient will be doing that here within the hour. She will also continue on all of her home medications including Sensipar, Kayexalate, Sevelamer. 4. Chronic pain. Continue oxycodone p.r.n. 5. Chronic obstructive pulmonary disease. No clear evidence of exacerbation tonight. Plan to continue with Dulera and Singulair. We will hold Spiriva. She will have DuoNeb nebulizers available p.r.n. She will have oxygen available and titrated to an O2 saturation greater than 90%. 6. History of DVT/PE. Continue apixaban. 7. DVT prophylaxis, with apixaban. 8. Code status is full code. DISPOSITION: To the intensive care unit. TIME SPENT: Approximately 75 minutes were spent on the admission of this patient, more than half of the time spent with the patient at the bedside reviewing the events leading up to this hospitalization, performing the physical examination, and reviewing my plan of care. NEHA SANDRA NP [id number]/[facility] #: [id number] SHI
[2017-05-24] MEDS: Metoprolol Tartrate TAB* 25 MG PO SCH ×3 (00:31→21:41)
[2017-05-24] MEDS: ALPRAZolam TAB* 0.25 MG PO PRN ×2 (00:31→21:57)
[2017-05-24] MEDS: Apixaban* 5 MG TAB PO SCH ×3 (00:32→21:41)
[2017-05-24] MEDS: cloNIDine TAB* 0.1 MG PO SCH ×3 (00:32→21:41)
[2017-05-24] MEDS: diPHENhydraMINE PO* 25 MG PO SCH ×2 (00:33→21:41)
[2017-05-24] MEDS: Labetalol TAB* 200 MG PO SCH ×3 (00:33→21:41)
[2017-05-24] MEDS: Vitamin E CAP* 400 UNIT PO SCH ×3 (00:33→21:41)
[2017-05-24 06:00] LABS: ABS Basophils 0 10^3/ul (0-0.2); ABS Eosinophils 0 10^3/ul (0-0.6); ABS Lymphocytes 0.3 10^3/ul (1.0-4.8); ABS Monocytes 0.1 10^3/ul (0-0.8); ABS Neutrophils 6.9 10^3/ul (1.5-7.7); ABS Nucleated RBC 0 10^3/ul; Eosinophil % 0 % (0-6); Hematocrit 28 % (35-47); Hemoglobin 9.8 g/dl (12.0-16.0); Lymphocyte % 3.8 % (25-47); Mean Corpuscular HGB Conc 35 g/dl (31-36); Mean Corpuscular Hemoglobin 35 pg (27-31); Mean Corpuscular Volume 102 fL (80-97); Mean Platelet Volume 9 um3 (7.4-10.4); Nucleated Red Blood Cells % 0; Platelet Count 145 10^3/ul (150-450); Red Blood Count 2.78 10^6/ul (4.0-5.4); Red Cell Distribution Width 17 % (10.5-15); White Blood Count 7.4 10^3/ul (3.5-10.8)
[2017-05-24 06:16] LABS: EGFR Non-African American 5.1 (>60)
[2017-05-24] MEDS: oxyCODONE TAB* 5 MG TAB PO PRN ×2 (06:39→19:33)
[2017-05-24] MEDS: Mometasone/Formoter 200/5 MDI INH SCH ×2 (07:41→22:17)
[2017-05-24] MEDS: Sevelamer TAB* 800 MG PO SCH ×3 (08:53→16:56)
[2017-05-24] MEDS: predniSONE TAB* 20 MG PO SCH (08:54)
[2017-05-24] MEDS: Diltiazem CD CAP* 180 MG PO SCH (08:54)
[2017-05-24] MEDS: Montelukast Sodium TAB* 10 MG PO SCH (08:55)
[2017-05-24] MEDS: Aspirin EC Low Dose* 81 MG TAB.EC PO SCH (08:55)
[2017-05-24] MEDS: Diltiazem CD CAP* 120 MG PO SCH (08:55)
[2017-05-24] MEDS: Sertraline* 25 MG TAB PO SCH (08:55)
[2017-05-24] MEDS: Morphine INJ* 4 MG/ML 1 ML CARPUJECT IV PRN ×3 (09:04→22:01)
[2017-05-24] MEDS: Cinacalcet TAB* 30 MG PO SCH (09:04)
[2017-05-24] MEDS: Sodium Polystyrene ORAL.SOL* 15 GM/60 ML BTL PO SCH (09:04)
--- NOTE | 2017-05-24 13:44 | PN ---
Subjective Date of Service: 05/24/17 Interval History: Patient seen and examined at bedside. Denies fever, chills, N/V/D. Pt states that she has sternal chst discomfort that radiates to her back and across her lower shoulder blades. She describes this pain as a "sharp, burning pain". Pt states that her shortness of breath is improving, but she continues to have shortness of breath. Pt reports having a cough for approximately 3 weeks. Pt states that she uses 2L of oxygen at home and a BiPAP at night. Tele: Afib, rate 80-100's. Family History: Unchanged from Admission Social History: Unchanged from Admission Past Medical History: Unchanged from Admission Objective Active Medications: Albuterol/Ipratropium (Duoneb (Albuterol 2.5 Mg/Ipratropium 0.5 Mg)) 1 neb INH Q4H PRN Reason: DYSPNEA Alprazolam (Xanax Tab*) 0.25 mg PO TID PRN Reason: ANXIETY Apixaban (Eliquis*) 5 mg PO BID [facility] Aspirin (Aspirin Ec Low Dose*) 81 mg PO DAILY [facility] Cinacalcet (Sensipar Tab*) 90 mg PO DAILY [facility] Clonidine HCl (Catapres Tab*) 0.3 mg PO BID [facility] Diltiazem HCl (Cardizem Cd Cap*) 180 mg PO DAILY [facility] Diltiazem HCl (Cardizem Cd Cap*) 120 mg PO DAILY [facility] Diphenhydramine HCl (Benadryl Po*) 25 mg PO BEDTIME [facility] Labetalol HCl (Trandate Tab*) 200 mg PO BID [facility] Metoprolol Tartrate (Lopressor Tab*) 75 mg PO BID [facility] Mometasone Furoate/Formoterol Fumar (Dulera 200/5 Mdi*) 2 puff INH BID [facility] Montelukast Sodium (Singulair Tab*) 10 mg PO DAILY [facility] Morphine Sulfate (Morphine Inj (Syringe)*) 4 mg IV Q4H PRN Reason: PAIN Oxycodone HCl (Roxycodone Tab*) 10 mg PO Q6H PRN Reason: PAIN Polyethylene Glycol/Electrolytes (Miralax*) 17 gm PO DAILY PRN Reason: CONSTIPATION Prednisone (Deltasone Tab*) 40 mg PO DAILY [facility] Sertraline HCl (Zoloft*) 25 mg PO DAILY [facility] Sevelamer Carbonate (Renvela Tab*) 4,000 mg PO TID WITH MEALS [facility] Sodium Polystyrene Sulfonate (Kayexalate Oral.Tonya*) 15 gm PO DAILY [facility] Vitamin E (Vitamin E Cap*) 400 unit PO BID [facility] Vital Signs - 8 hr 05/24/17 05/24/17 05/24/17 06:00 06:30 07:00 Temperature Pulse Rate 91 88 82 Respiratory 19 20 28 Rate Blood Pressure 151/120 151/110 141/100 (mmHg) O2 Sat by Pulse 100 100 100 Oximetry 05/24/17 05/24/17 05/24/17 07:30 07:41 08:00 Temperature 97 F Pulse Rate 90 92 104 Respiratory 17 20 20 Rate Blood Pressure 158/101 157/123 (mmHg) O2 Sat by Pulse 100 100 100 Oximetry 05/24/17 05/24/17 05/24/17 08:30 09:00 09:01 Temperature Pulse Rate 93 101 107 Respiratory 18 16 17 Rate Blood Pressure 148/121 183/140 (mmHg) O2 Sat by Pulse 100 98 92 Oximetry 05/24/17 05/24/17 05/24/17 09:04 09:30 10:00 Temperature Pulse Rate 100 102 Respiratory 22 19 17 Rate Blood Pressure 184/134 163/110 (mmHg) O2 Sat by Pulse 100 100 Oximetry 05/24/17 05/24/17 05/24/17 10:30 11:00 11:30 Temperature Pulse Rate 93 88 90 Respiratory 26 20 18 Rate Blood Pressure 154/116 157/104 160/118 (mmHg) O2 Sat by Pulse 82 97 98 Oximetry 05/24/17 05/24/17 05/24/17 12:00 12:31 13:00 Temperature 98.4 F Pulse Rate 92 94 95 Respiratory 19 20 Rate Blood Pressure 169/114 164/100 184/121 (mmHg) O2 Sat by Pulse 99 98 100 Oximetry 05/24/17 13:01 Temperature Pulse Rate 102 Respiratory Rate Blood Pressure (mmHg) O2 Sat by Pulse 99 Oximetry Oxygen Devices in Use Now: Nasal Cannula - 4L Appearance: NAD, sitting up in bed Ears/Nose/Mouth/Throat: Mucous Membranes Moist Respiratory: Symmetrical Chest Expansion and Respiratory Effort, Clear to Auscultation - , diminished Cardiovascular: NL Sounds; No Murmurs; No JVD, RRR, No Edema, - Abdominal: NL Sounds; No Tenderness; No Distention Skin: No Rash or Ulcers Neurological: Alert and Oriented x 3, NL Muscle Strength and Tone Lines/Tubes/Other Access: Clean, Dry and Intact Peripheral IV - x 2, site benign Nutrition: Taking PO's Result Diagrams: 05/24/17 05:30 05/24/17 05:30 Additional Lab and Data: Assess/Plan/Problems-Billing Assessment: Ms. Joseph is a 46 yo female with PMH significant for ESRD on hemodialysis, Afib, DVT/PE, MVR, COPD, CAD, chronic diastolic dysfunction, Anemia of chronic disease , HTN, HLD, A/D and a supravena cava syndrome who presented to the emergency room with complaints of cough and shortness of breath with associated chest and back pain. - Patient Problems (1) Shortness of breath Code(s): R06.02 - SHORTNESS OF BREATH SNOMED Code(s): 569839326 Comment: - Likely multifactorial, secondary to COPD, combined HF, ESRD with fluid overload, tobacco use - Continue inhalers, add prn nebulizers - Will obtain another chest xray today (2) Atrial fibrillation Code(s): I48.91 - UNSPECIFIED ATRIAL FIBRILLATION SNOMED Code(s): 21569816 Comment: - With RVR on admission, rate controlled today - Continue diltiazem, metoprolol, labetalol, apixaban (3) Acute on chronic respiratory failure with hypoxemia Code(s): J96.21 - ACUTE AND CHRONIC RESPIRATORY FAILURE WITH HYPOXIA SNOMED Code(s): 93772503691124539 Comment: - Pt states that she uses 2L O2 at home and is currently on 4L via NC - Weaned off BiPAP overnight (4) Chest pain Code(s): R07.9 - CHEST PAIN, UNSPECIFIED SNOMED Code(s): 20713393 Comment: - Trop 0.12, 0.12, and 0.09; no ST or T wave changes seen on EKG - Appears to be associated with cough and is reproducible - Continue prn morphine or oxycodone (5) ESRD (end stage renal disease) on dialysis Code(s): N18.6 - END STAGE RENAL DISEASE; Z99.2 - DEPENDENCE ON RENAL DIALYSIS SNOMED Code(s): 050635829 Comment: - Continue dialysis inpt MoWeFr, outpt TuThSa (6) Cough Code(s): R05 - COUGH SNOMED Code(s): 99758481 Comment: - Suspect likely to addition to volume overload and recent COPD exacerbation - Will recheck Chest xray (7) Congestive heart failure Code(s): I50.9 - HEART FAILURE, UNSPECIFIED SNOMED Code(s): 16734375 Comment: - Suspect acute on chronic exacerbation, given CXR and incomplete dialysis - Patient with history of combined systolic and diastolic HF - S/P dialysis last evening on 05/23 - Continue daily weights, strict I/O, volume restriction (8) MALLORIE (obstructive sleep apnea) Code(s): G47.33 - OBSTRUCTIVE SLEEP APNEA (ADULT) (PEDIATRIC) SNOMED Code(s): 50922673 Comment: (9) S/P AVR (aortic valve replacement) Code(s): Z95.2 - PRESENCE OF PROSTHETIC HEART VALVE SNOMED Code(s): 1575516954492 Comment: - S/P TAVR in May 2016 (10) HTN (hypertension) Code(s): I10 - ESSENTIAL (PRIMARY) HYPERTENSION SNOMED Code(s): 24360083 Comment: - Improved control since dialysis yesterday - Continue home medications and continue to monitor (11) History of DVT (deep vein thrombosis) Code(s): Z86.718 - PERSONAL HISTORY OF OTHER VENOUS THROMBOSIS AND EMBOLISM SNOMED Code(s): 369437557 Comment: - Also with hx of PE - Continue home apixaban. (12) History of coronary artery disease Code(s): Z86.79 - PERSONAL HISTORY OF OTHER DISEASES OF THE CIRCULATORY SYSTEM SNOMED Code(s): 867813261 Comment: - Continue ASA and beta clara. (13) DVT prophylaxis Code(s): [id number] - SNOMED Code(s): 539743021 Comment: - Continue apixaban (14) Full code status Code(s): Z78.9 - OTHER SPECIFIED HEALTH STATUS SNOMED Code(s): 847786293 Status and Disposition: Inpatient. Discharge to home when medically stable.
--- NOTE | 2017-05-24 15:38 | RAD ---
INDICATION: Cough and shortness of breath COMPARISON: Chest x-ray dated May 23, 2017 TECHNIQUE: Single AP portable view of the chest was obtained. FINDINGS: Image quality is compromised due to the relative inferiority of a portable chest x-ray. Postsurgical changes including a prostatic aortic valve and sternotomy wires are unchanged. Again seen is moderate cardiomegaly. The pulmonary vasculature appears indistinct and engorged. There is density obscuring the left lung base and causing left costophrenic angle blunting. IMPRESSION: Chest x-ray findings are consistent with cardiogenic pulmonary edema with a likely left lower lobe pleural effusion similar in appearance to the May 23, 2017 chest x-ray.
[2017-05-24] MEDS ORDERED: hydrALAZINE IV* 20 MG/ML VIAL IV SLOW PU PRN (18:35)
[2017-05-25] MEDS: hydrALAZINE IV* 20 MG/ML VIAL IV SLOW PU PRN (01:03)
[2017-05-25] MEDS: Mometasone/Formoter 200/5 MDI INH SCH ×2 (08:04→20:11)
[2017-05-25] MEDS: Sevelamer TAB* 800 MG PO SCH ×3 (09:00→18:08)
[2017-05-25] MEDS: Labetalol TAB* 200 MG PO SCH ×2 (09:00→21:10)
[2017-05-25] MEDS: Cinacalcet TAB* 30 MG PO SCH (09:01)
[2017-05-25] MEDS: Montelukast Sodium TAB* 10 MG PO SCH (09:02)
[2017-05-25] MEDS: cloNIDine TAB* 0.1 MG PO SCH ×2 (09:02→21:09)
[2017-05-25] MEDS: predniSONE TAB* 20 MG PO SCH (09:02)
[2017-05-25] MEDS: Sertraline* 25 MG TAB PO SCH (09:03)
[2017-05-25] MEDS: Aspirin EC Low Dose* 81 MG TAB.EC PO SCH (09:03)
[2017-05-25] MEDS: Diltiazem CD CAP* 180 MG PO SCH (09:03)
[2017-05-25] MEDS: Metoprolol Tartrate TAB* 25 MG PO SCH ×2 (09:03→21:11)
[2017-05-25] MEDS: ALPRAZolam TAB* 0.25 MG PO PRN ×3 (09:04→21:08)
[2017-05-25] MEDS: Diltiazem CD CAP* 120 MG PO SCH (09:04)
[2017-05-25] MEDS: oxyCODONE TAB* 5 MG TAB PO PRN ×2 (09:04→16:22)
[2017-05-25] MEDS: Vitamin E CAP* 400 UNIT PO SCH ×2 (09:04→21:10)
[2017-05-25 09:28] LABS: ABS Basophils 0 10^3/ul (0-0.2); ABS Eosinophils 0 10^3/ul (0-0.6); ABS Lymphocytes 0.7 10^3/ul (1.0-4.8); ABS Monocytes 0.9 10^3/ul (0-0.8); ABS Neutrophils 5.4 10^3/ul (1.5-7.7); ABS Nucleated RBC 0 10^3/ul; Eosinophil % 0.1 % (0-6); Hematocrit 28 % (35-47); Hemoglobin 9.3 g/dl (12.0-16.0); Lymphocyte % 9.3 % (25-47); Mean Corpuscular HGB Conc 34 g/dl (31-36); Mean Corpuscular Hemoglobin 35 pg (27-31); Mean Corpuscular Volume 103 fL (80-97); Mean Platelet Volume 9 um3 (7.4-10.4); Nucleated Red Blood Cells % 0; Platelet Count 155 10^3/ul (150-450); Red Cell Distribution Width 17 % (10.5-15)
[2017-05-25 10:04] LABS: EGFR Non-African American 3.8 (>60)
[2017-05-25] MEDS: Apixaban* 5 MG TAB PO SCH ×2 (10:06→21:09)
[2017-05-25] MEDS: Sodium Polystyrene ORAL.SOL* 15 GM/60 ML BTL PO SCH (10:06)
[2017-05-25] MEDS: Prochlorperazine TAB* 10 MG PO PRN (13:20)
[2017-05-25] MEDS: Morphine INJ* 4 MG/ML 1 ML CARPUJECT IV PRN ×3 (13:40→23:49)
--- NOTE | 2017-05-25 13:42 | PN ---
Subjective Date of Service: 05/25/17 Interval History: Patient seen and examined at bedside. Denies fever, V/D. Pt is complaining of chills, her "body getting warm", chest discomfort, back pain, shortness of breath (this is improving), nausea. Tele: Afib/flutter, rate 80-120's. Family History: Unchanged from Admission Social History: Unchanged from Admission Past Medical History: Unchanged from Admission Objective Active Medications: Albuterol/Ipratropium (Duoneb (Albuterol 2.5 Mg/Ipratropium 0.5 Mg)) 1 neb INH Q4H PRN Reason: DYSPNEA Alprazolam (Xanax Tab*) 0.25 mg PO TID PRN Reason: ANXIETY Apixaban (Eliquis*) 5 mg PO BID [facility] Aspirin (Aspirin Ec Low Dose*) 81 mg PO DAILY [facility] Cinacalcet (Sensipar Tab*) 90 mg PO DAILY [facility] Clonidine HCl (Catapres Tab*) 0.3 mg PO BID [facility] Diltiazem HCl (Cardizem Cd Cap*) 180 mg PO DAILY [facility] Diltiazem HCl (Cardizem Cd Cap*) 120 mg PO DAILY [facility] Diphenhydramine HCl (Benadryl Po*) 25 mg PO BEDTIME [facility] Hydralazine HCl (Apresoline Iv*) 10 mg IV SLOW PU Q6H PRN Reason: BLOOD PRESSURE SBP > 185 or DBP > 110 Labetalol HCl (Trandate Tab*) 200 mg PO BID [facility] Metoprolol Tartrate (Lopressor Tab*) 75 mg PO BID [facility] Mometasone Furoate/Formoterol Fumar (Dulera 200/5 Mdi*) 2 puff INH BID [facility] Montelukast Sodium (Singulair Tab*) 10 mg PO DAILY [facility] Oxycodone HCl (Roxycodone Tab*) 10 mg PO Q6H PRN Reason: PAIN Polyethylene Glycol/Electrolytes (Miralax*) 17 gm PO DAILY PRN Reason: CONSTIPATION Prednisone (Deltasone Tab*) 40 mg PO DAILY [facility] Prochlorperazine (Compazine Tab*) 10 mg PO Q6HR PRN Reason: NAUSEA Sertraline HCl (Zoloft*) 25 mg PO DAILY [facility] Sevelamer Carbonate (Renvela Tab*) 4,000 mg PO TID WITH MEALS [facility] Sodium Polystyrene Sulfonate (Kayexalate Oral.Tonya*) 15 gm PO DAILY [facility] Vitamin E (Vitamin E Cap*) 400 unit PO BID [facility] Vital Signs - 8 hr 05/25/17 05/25/17 05/25/17 07:25 08:39 09:04 Temperature 98.2 F Pulse Rate 80 Respiratory 20 24 20 Rate Blood Pressure 161/104 (mmHg) O2 Sat by Pulse 100 Oximetry 05/25/17 05/25/17 05/25/17 11:46 12:10 13:20 Temperature 97.9 F Pulse Rate 79 Respiratory 20 20 17 Rate Blood Pressure 143/93 (mmHg) O2 Sat by Pulse 100 Oximetry 05/25/17 13:40 Temperature Pulse Rate Respiratory 22 Rate Blood Pressure (mmHg) O2 Sat by Pulse Oximetry Oxygen Devices in Use Now: Nasal Cannula - 2L Appearance: NAD, laying in bed Ears/Nose/Mouth/Throat: Mucous Membranes Moist Respiratory: Symmetrical Chest Expansion and Respiratory Effort, Clear to Auscultation Cardiovascular: NL Sounds; No Murmurs; No JVD, RRR, - - Tenderness to chest with palpation Abdominal: NL Sounds; No Tenderness; No Distention Extremities: No Edema, - - Tenderness to back with palpation Skin: No Rash or Ulcers Neurological: Alert and Oriented x 3, NL Muscle Strength and Tone Lines/Tubes/Other Access: Clean, Dry and Intact Peripheral IV - site benign Result Diagrams: 05/25/17 09:10 05/25/17 09:10 Additional Lab and Data: Microbiology and Other Data: Microbiology 05/23/17 20:32 Aerobic Blood Culture - Preliminary Blood Venous No Growth Day 1 Anaerobic Blood Culture - Preliminary No Growth Day 1 Assess/Plan/Problems-Billing Assessment: Ms. Joseph is a 46 yo female with PMH significant for ESRD on hemodialysis, Afib, DVT/PE, MVR, COPD, CAD, chronic diastolic dysfunction, Anemia of chronic disease , HTN, HLD, A/D and a supravena cava syndrome who presented to the emergency room with complaints of cough and shortness of breath with associated chest and back pain. - Patient Problems (1) Shortness of breath Code(s): R06.02 - SHORTNESS OF BREATH SNOMED Code(s): 639140067 Comment: - Likely multifactorial, secondary to COPD, combined HF, ESRD with fluid overload, tobacco use - Continue inhalers, add prn nebulizers - Chest xray - pulmonary edema (2) Atrial fibrillation Code(s): I48.91 - UNSPECIFIED ATRIAL FIBRILLATION SNOMED Code(s): 39608447 Comment: - With RVR on admission, rate controlled today - Continue diltiazem, metoprolol, labetalol, apixaban (3) Acute on chronic respiratory failure with hypoxemia Code(s): J96.21 - ACUTE AND CHRONIC RESPIRATORY FAILURE WITH HYPOXIA SNOMED Code(s): 45429081377662354 Comment: - Pt states that she uses 2L O2 at home and is currently on 4L via NC - Weaned off BiPAP overnight (4) Chest pain Code(s): R07.9 - CHEST PAIN, UNSPECIFIED SNOMED Code(s): 95348440 Comment: - Trop 0.12, 0.12, and 0.09; no ST or T wave changes seen on EKG - Appears to be associated with cough and is reproducible - Continue prn morphine or oxycodone (5) ESRD (end stage renal disease) on dialysis Code(s): N18.6 - END STAGE RENAL DISEASE; Z99.2 - DEPENDENCE ON RENAL DIALYSIS SNOMED Code(s): 488119903 Comment: - Continue dialysis inpt MoWeFr, outpt TuThSa (6) Cough Code(s): R05 - COUGH SNOMED Code(s): 78827934 Comment: - Suspect likely to addition to volume overload and recent COPD exacerbation - Will recheck Chest xray (7) Congestive heart failure Code(s): I50.9 - HEART FAILURE, UNSPECIFIED SNOMED Code(s): 10212282 Comment: - Suspect acute on chronic exacerbation, given CXR and incomplete dialysis - Patient with history of combined systolic and diastolic HF - S/P dialysis last evening on 05/23 - Continue daily weights, strict I/O, volume restriction (8) MALLORIE (obstructive sleep apnea) Code(s): G47.33 - OBSTRUCTIVE SLEEP APNEA (ADULT) (PEDIATRIC) SNOMED Code(s): 62751269 Comment: (9) S/P AVR (aortic valve replacement) Code(s): Z95.2 - PRESENCE OF PROSTHETIC HEART VALVE SNOMED Code(s): 5069035653847 Comment: - S/P TAVR in May 2016 (10) HTN (hypertension) Code(s): I10 - ESSENTIAL (PRIMARY) HYPERTENSION SNOMED Code(s): 96962565 Comment: - Improved control since dialysis yesterday - Continue home medications and continue to monitor (11) History of DVT (deep vein thrombosis) Code(s): Z86.718 - PERSONAL HISTORY OF OTHER VENOUS THROMBOSIS AND EMBOLISM SNOMED Code(s): 782683116 Comment: - Also with hx of PE - Continue home apixaban. (12) History of coronary artery disease Code(s): Z86.79 - PERSONAL HISTORY OF OTHER DISEASES OF THE CIRCULATORY SYSTEM SNOMED Code(s): 121711927 Comment: - Continue ASA and beta clara. (13) DVT prophylaxis Code(s): QNL4455 - SNOMED Code(s): 762648776 Comment: - Continue apixaban (14) Full code status Code(s): Z78.9 - OTHER SPECIFIED HEALTH STATUS SNOMED Code(s): 949204931 Status and Disposition: Inpatient. Discharge to home when medically stable. Possible in the AM.
--- NOTE | 2017-05-25 16:21 | RAD ---
INDICATION: Upper chest and neck swelling COMPARISON: CT of the chest May 04, 2015 TECHNIQUE: Axial source images of the chest were acquired without intravenous contrast from just above the lung apices to the base of the diaphragm. Coronal and sagittal reconstructed images were acquired. FINDINGS: The lungs exhibit mild groundglass opacification. There are traces of pleural fluid in the major fissure and at the bilateral lung bases. There is moderate cardiomegaly similar to the most recent CT of the examination. A prostatic aortic valve is noted. There is coarse calcification of the thoracic aorta. There is no readily apparent mediastinal, hilar, or axillary lymphadenopathy. Evidence of vascular congestion includes varicose veins overlying the neck and upper chest. The osseous structures appear normal. Limited views of the upper abdomen show no acute abnormalities. IMPRESSION: 1. Varicose veins overlying the anterior lower neck and chest are consistent with venous varicosities indicating some degree of central venous occlusion/stenosis. 2. Again seen is cardiomegaly with signs of mild pulmonary edema.
[2017-05-25] MEDS: diPHENhydraMINE PO* 25 MG PO SCH (21:10)
[2017-05-26] MEDS: hydrALAZINE IV* 20 MG/ML VIAL IV SLOW PU PRN ×2 (01:45→08:45)
[2017-05-26] MEDS: oxyCODONE TAB* 5 MG TAB PO PRN (04:37)
[2017-05-26] MEDS: Mometasone/Formoter 200/5 MDI INH SCH (08:12)
[2017-05-26] MEDS: Morphine INJ* 4 MG/ML 1 ML CARPUJECT IV PRN (08:48)
[2017-05-26] MEDS: Aspirin EC Low Dose* 81 MG TAB.EC PO SCH (08:49)
[2017-05-26] MEDS: Vitamin E CAP* 400 UNIT PO SCH (08:49)
[2017-05-26] MEDS: Sevelamer TAB* 800 MG PO SCH (08:49)
[2017-05-26] MEDS: Prochlorperazine TAB* 10 MG PO PRN (08:50)
[2017-05-26] MEDS: ALPRAZolam TAB* 0.25 MG PO PRN (08:50)
--- NOTE | 2017-05-26 09:35 | PN ---
Subjective Date of Service: 05/26/17 Interval History: Pt is feeling about the same. When I tell her she can go to outpatient dialysis today she gets quite upset that we did not find a reason for her feeling so poorly. We discussed that she is likely to continue to worsen from her chronic medical conditions. She starts crying stating that I am the second doctor to tell her that we likely can not help her feel much better than she currently does. She then starts crying about being in pain. She thinks her pain is better managed on oxycodone 15mg. We have agreed that this is an acceptable change for me to make to her medication regimen and she thinks that will help her feel better. Family History: Unchanged from Admission Social History: Unchanged from Admission Past Medical History: Unchanged from Admission Objective Active Medications: Albuterol/Ipratropium (Duoneb (Albuterol 2.5 Mg/Ipratropium 0.5 Mg)) 1 neb INH Q4H PRN PRN Reason: DYSPNEA Alprazolam (Xanax Tab*) 0.25 mg PO TID PRN PRN Reason: ANXIETY Last Admin: 05/26/17 08:50 Dose: 0.25 mg Apixaban (Eliquis*) 5 mg PO BID [facility] Last Admin: 05/25/17 21:09 Dose: 5 mg Aspirin (Aspirin Ec Low Dose*) 81 mg PO DAILY [facility] Last Admin: 05/26/17 08:49 Dose: 81 mg Cinacalcet (Sensipar Tab*) 90 mg PO DAILY [facility] Last Admin: 05/25/17 09:01 Dose: 90 mg Clonidine HCl (Catapres Tab*) 0.3 mg PO BID [facility] Last Admin: 05/25/17 21:09 Dose: 0.3 mg Diltiazem HCl (Cardizem Cd Cap*) 180 mg PO DAILY [facility] Last Admin: 05/25/17 09:03 Dose: 180 mg Diltiazem HCl (Cardizem Cd Cap*) 120 mg PO DAILY [facility] Last Admin: 05/25/17 09:04 Dose: 120 mg Diphenhydramine HCl (Benadryl Po*) 25 mg PO BEDTIME [facility] Last Admin: 05/25/17 21:10 Dose: 25 mg Hydralazine HCl (Apresoline Iv*) 10 mg IV SLOW PU Q6H PRN PRN Reason: BLOOD PRESSURE Last Admin: 05/26/17 08:45 Dose: 10 mg Labetalol HCl (Trandate Tab*) 200 mg PO BID [facility] Last Admin: 05/25/17 21:10 Dose: 200 mg Metoprolol Tartrate (Lopressor Tab*) 75 mg PO BID [facility] Last Admin: 05/25/17 21:11 Dose: 75 mg Mometasone Furoate/Formoterol Fumar (Dulera 200/5 Mdi*) 2 puff INH BID [facility] Last Admin: 05/26/17 08:12 Dose: 2 puff Montelukast Sodium (Singulair Tab*) 10 mg PO DAILY [facility] Last Admin: 05/25/17 09:02 Dose: 10 mg Morphine Sulfate (Morphine Inj (Syringe)*) 4 mg IV Q4H PRN PRN Reason: PAIN - SEVERE Last Admin: 05/26/17 08:48 Dose: 4 mg Oxycodone HCl (Roxycodone Tab*) 10 mg PO Q6H PRN PRN Reason: PAIN Last Admin: 05/26/17 04:37 Dose: 10 mg Polyethylene Glycol/Electrolytes (Miralax*) 17 gm PO DAILY PRN PRN Reason: CONSTIPATION Last Admin: 05/24/17 00:34 Dose: 17 gm Prednisone (Deltasone Tab*) 40 mg PO DAILY [facility] Last Admin: 05/25/17 09:02 Dose: 40 mg Prochlorperazine (Compazine Tab*) 10 mg PO Q6HR PRN PRN Reason: NAUSEA Last Admin: 05/26/17 08:50 Dose: 10 mg Sertraline HCl (Zoloft*) 25 mg PO DAILY [facility] Last Admin: 05/25/17 09:03 Dose: 25 mg Sevelamer Carbonate (Renvela Tab*) 4,000 mg PO TID WITH MEALS [facility] Last Admin: 05/26/17 08:49 Dose: 4,000 mg Sodium Polystyrene Sulfonate (Kayexalate Oral.Tonya*) 15 gm PO DAILY [facility] Last Admin: 05/25/17 10:06 Dose: 15 gm Vitamin E (Vitamin E Cap*) 400 unit PO BID [facility] Last Admin: 05/26/17 08:49 Dose: 400 unit Vital Signs - 8 hr 05/26/17 05/26/17 05/26/17 01:48 04:33 04:37 Temperature 97.0 F Pulse Rate 67 Respiratory 20 16 Rate Blood Pressure 143/94 (mmHg) O2 Sat by Pulse 100 100 Oximetry 05/26/17 05/26/17 05/26/17 06:12 08:17 08:48 Temperature 98.1 F Pulse Rate 79 Respiratory 16 20 18 Rate Blood Pressure 167/124 (mmHg) O2 Sat by Pulse 98 Oximetry 05/26/17 08:50 Temperature Pulse Rate Respiratory 18 Rate Blood Pressure (mmHg) O2 Sat by Pulse Oximetry Oxygen Devices in Use Now: Nasal Cannula Appearance: MIddle aged female sitting up in bed, NAD Eyes: No Scleral Icterus Ears/Nose/Mouth/Throat: Mucous Membranes Moist Respiratory: Symmetrical Chest Expansion and Respiratory Effort, Clear to Auscultation Cardiovascular: No Edema, - - irregularly irregular, controlled rate, III/ systolic murmur heard across the precordium, engorged neck veins Abdominal: NL Sounds; No Tenderness; No Distention Extremities: No Clubbing, Cyanosis Skin: No Rash or Ulcers, No Nodules or Sclerosis Neurological: Alert and Oriented x 3 Result Diagrams: 05/25/17 09:10 05/25/17 09:10 Additional Lab and Data: Microbiology and Other Data: Microbiology 05/23/17 20:32 Aerobic Blood Culture - Preliminary Blood Venous No Growth Day 1 Anaerobic Blood Culture - Preliminary No Growth Day 1 Assess/Plan/Problems-Billing Ms. Joseph is a 46 yo female with PMHx significant for ESRD on hemodialysis, Afib, DVT/PE, MVR, COPD, CAD, chronic diastolic dysfunction, Anemia of chronic disease , HTN, HLD, A/D and a supravena cava syndrome who presented to the emergency room with complaints of cough and shortness of breath with associated chest and back pain. - Patient Problems (1) Shortness of breath Current Visit: Yes Status: Acute Code(s): R06.02 - SHORTNESS OF BREATH SNOMED Code(s): 682855194 Comment: SOB on admission likely secondary to missing dialysis. SOB now improved and she is on her baseline 2L O2. Will continue dialysis as scheduled. Continue inhalers. (2) Atrial fibrillation Current Visit: Yes Status: Chronic Priority: Medium Code(s): I48.91 - UNSPECIFIED ATRIAL FIBRILLATION SNOMED Code(s): 33517068 Comment: HR is controlled. Continue diltiazem, metoprolol, labetolol and eliquis. (3) Chest pain Current Visit: Yes Status: Chronic Code(s): R07.9 - CHEST PAIN, UNSPECIFIED SNOMED Code(s): 45777418 Comment: The patient has chronic pain which I think is why she states she feels so poorly. Will increase home oxycodone to 15mg q4hr prn. The patient thinks this will help her feel better. (4) Anemia Current Visit: Yes Status: Acute Code(s): D64.9 - ANEMIA, UNSPECIFIED SNOMED Code(s): 171711979 Comment: H/H essentially at baseline. Continue to follow intermittently. (5) ESRD (end stage renal disease) on dialysis Current Visit: Yes Status: Chronic Code(s): N18.6 - END STAGE RENAL DISEASE ; Z99.2 - DEPENDENCE ON RENAL DIALYSIS SNOMED Code(s): 130451003 Comment: Continue dialysis TuThSa but she will get a treatment today at 11am. (6) DVT prophylaxis Current Visit: No Status: Acute Code(s): [id number] - SNOMED Code(s): 476535725 Comment: Rukhsana (7) Full code status Current Visit: Yes Status: Acute Onset Date: 07/04/14 Code(s): Z78.9 - OTHER SPECIFIED HEALTH STATUS SNOMED Code(s): 207484505 Status and Disposition: d/c home today
[2017-05-26] MEDS: Sodium Polystyrene ORAL.SOL* 15 GM/60 ML BTL PO SCH (09:39)
[2017-05-26] MEDS: cloNIDine TAB* 0.1 MG PO SCH (09:40)
[2017-05-26] MEDS: Diltiazem CD CAP* 180 MG PO SCH (09:40)
[2017-05-26] MEDS: Diltiazem CD CAP* 120 MG PO SCH (09:40)
[2017-05-26] MEDS: Cinacalcet TAB* 30 MG PO SCH (09:40)
[2017-05-26] MEDS: Montelukast Sodium TAB* 10 MG PO SCH (09:40)
[2017-05-26] MEDS: Sertraline* 25 MG TAB PO SCH (09:40)
[2017-05-26] MEDS: Labetalol TAB* 200 MG PO SCH (09:40)
[2017-05-26] MEDS: predniSONE TAB* 20 MG PO SCH (09:40)
[2017-05-26] MEDS: Apixaban* 5 MG TAB PO SCH (09:40)
[2017-05-26] MEDS: Metoprolol Tartrate TAB* 25 MG PO SCH (09:41)
[2017-05-26] MEDS ORDERED: oxyCODONE TAB* 5 MG TAB PO PRN (09:52)
[2017-05-26 10:22] VITALS: BP 157/94
--- NOTE | 2017-06-04 15:31 | DS ---
CC: Dr. Osorio * DISCHARGE SUMMARY: DATE OF ADMISSION: 05/23/17 DATE OF DISCHARGE: 05/26/17 PRIMARY CARE PROVIDER: None. PRINCIPAL DIAGNOSES: Pulmonary edema and resultant shortness of breath secondary to missed dialysis appointment. SECONDARY DIAGNOSES: 1. End-stage renal disease. 2. History of deep venous thrombosis/pulmonary embolism. 3. Transcatheter aortic valve replacement. 4. Superior vena cava syndrome. 5. Coronary artery disease. 6. Chronic diastolic congestive heart failure. 7. Atrial fibrillation. 8. Anemia of renal disease. 9. Hypertension. 10. Hyperlipidemia. 11. Depression/anxiety. DISCHARGE MEDICATIONS: 1. B complex with folic acid 1 tablet p.o. daily. 2. Aspirin 81 mg p.o. daily. 3. Eliquis 5 mg p.o. b.i.d. 4. Combivent 1 inhalation q.6 hours. 5. Xanax 0.25 mg p.o. t.i.d. p.r.n. anxiety. 6. Lidocaine applied topically every other day to fistula site prior to dialysis. 7. Labetalol 200 mg p.o. twice daily. 8. Diltiazem CD 300 mg p.o. daily. 9. Clonidine 0.3 mg p.o. twice daily. 10. Cinacalcet 90 mg p.o. daily. 11. Benadryl 25 mg p.o. q.h.s. 12. Vitamin E 400 units p.o. twice daily. 13. Spiriva 1 puff inhaled daily. 14. Kayexalate 15 g p.o. daily. 15. Sevelamer 4000 mg p.o. t.i.d. with meals. 16. Sertraline 25 mg p.o. daily. 17. MiraLAX 17 g p.o. daily p.r.n. constipation. 18. Nitroglycerin 0.4 mg SL q.5 minutes p.r.n. chest pain. 19. Singulair 10 mg p.o. daily. 20. Dulera 200/5 two puffs inhaled twice daily. 21. Metoprolol tartrate 75 mg p.o. twice daily. 22. Oxycodone 15 mg p.o. q.4 hours p.r.n. pain (increased dose). HOSPITAL COURSE: Ms. Joseph is a 46-year-old female well known to the hospitalist service for multiple prior hospitalizations, who presented to the emergency room on 05/23/17 with complaints of cough, shortness of breath, chest and back pain. The patient missed her dialysis appointment the day prior to presentation. The patient was felt to be symptomatic secondary to missing her dialysis appointment. The patient was admitted to the intensive care unit and received emergent dialysis on the night of admission. The patient improved relatively rapidly following her dialysis treatment. The patient continued to complain of severe chest and back pain. The patient seemed to be focused on this, the most is this impacts her daily life. The patient's narcotic dosage had been reduced in the outpatient setting. The patient does feel markedly improved on 15 mg of oxycodone as opposed to 10. The oxycodone dose was increased up to 15 mg every 4 hours as needed for pain. The patient was felt to be stable for discharge home on 05/26/17. The patient is going to be discharged directly from the hospital to her outpatient dialysis appointment and then will go home. Also, on admission, the patient was noted to be in atrial fibrillation with rapid ventricular response. It was felt that it was likely secondary to her being in respiratory distress. As her respiratory distress improved, her heart rate also improved. The patient has been otherwise maintained on her usual home medication regimen. For the patient's chronic medical condition, no changes were made to her medication regimen outside of increasing her oxycodone to 15 mg p.o. q.4 hours p.r.n. pain. The patient unfortunately has chronic pain. The patient has end- stage renal disease and likely is only going to continue to worsen in terms of her symptomatology. At this point, as pain is limiting the patient's ability to function on a daily basis, I feel that increasing her oxycodone back to 15 mg every 4 hours as needed is likely to provide more benefit than her repeated hospitalizations and need for evaluation for ongoing pain. FOLLOWUP CONCERNS: The patient is being discharged home today, 05/26/17. ACTIVITY LEVEL: As tolerated. DIET: No added salt, renal. CONDITION ON DISCHARGE: Poor, but stable. TIME SPENT: Thirty-five minutes was spent discharging this patient. [id number]/[facility] #: [id number] SHI
== END 2017-05-26 11:00 | disposition home or self-care (01) | DRG 189 ==
LOC: ED 19:25 → ICU 20:19 → MEDTELE 05-24 21:18
PROVIDERS: ADMIT Internal Medicine; ATTEND Hospitalist
DX: J96.21 Acute and chronic respiratory failure with hypoxia (principal); I13.2 Hypertensive heart and chronic kidney disease with heart failure and with stage 5 chronic kidney disease, or end stage renal disease; N18.6 End stage renal disease; Z99.81 Dependence on supplemental oxygen; I48.91 Unspecified atrial fibrillation; I87.1 Compression of vein; I50.43 Acute on chronic combined systolic (congestive) and diastolic (congestive) heart failure; R07.9 Chest pain, unspecified; F17.210 Nicotine dependence, cigarettes, uncomplicated; D63.1 Anemia in chronic kidney disease; J44.9 Chronic obstructive pulmonary disease, unspecified; E78.5 Hyperlipidemia, unspecified; G47.33 Obstructive sleep apnea (adult) (pediatric); F32.9 Major depressive disorder, single episode, unspecified; F41.9 Anxiety disorder, unspecified; Z86.718 Personal history of other venous thrombosis and embolism; Z79.01 Long term (current) use of anticoagulants; Z99.2 Dependence on renal dialysis; Z86.711 Personal history of pulmonary embolism; Z95.3 Presence of xenogenic heart valve; Z79.82 Long term (current) use of aspirin; Z79.891 Long term (current) use of opiate analgesic; Z79.899 Other long term (current) drug therapy; Z88.0 Allergy status to penicillin; Z88.8 Allergy status to other drugs, medicaments and biological substances; Z82.49 Family history of ischemic heart disease and other diseases of the circulatory system
CPT/HCPCS: 36415; 71010; 71250; 80048; 80053; 83605; 83880; 84484; 85025; 87040; 90935; 93005; 94640; 94660; 94760; 99285; A9270-GY; G0257; J0360; J2270; J2405; J2930; J7512; Q0164

== ENCOUNTER 2017-06-12 20:48 | Inpatient (IN) | payer MEDICARE, MEDICAID ==
[2017-06-12] MEDS ORDERED: hydrALAZINE IV* 20 MG/ML VIAL IV SLOW PU ONE (21:19)
[2017-06-12] MEDS ORDERED: Albuterol/Ipratropium NEB.SOL* Albuterol 2.5 MG/Ipratropium 0.5 MG 3 ML INH ONE (21:20)
[2017-06-12] MEDS ORDERED: Albuterol 2.5 MG/3 ML NEB.SOL* (0.083%) INH PRN (21:20)
[2017-06-12] MEDS ORDERED: Levofloxacin 750 MG IVPREMIX(* 750 MG/150 ML BAG IVPB ONE (21:22)
[2017-06-12] MEDS ORDERED: methylPREDNISolone 125 MG* 2 ML VIAL IV ONE (21:22)
[2017-06-12] MEDS ORDERED: Magnesium Sulfate 2 GM IV* 2 GM/50 ML BAG IVPB ONE (21:22)
[2017-06-12] MEDS ORDERED: Morphine INJ* 4 MG/ML 1 ML CARPUJECT IV ONE ×2 (21:53→23:47)
[2017-06-12] MEDS ORDERED: Ondansetron INJ* 2 MG/ML VIAL IV ONE (21:53)
--- NOTE | 2017-06-12 22:11 | RAD ---
Indication: Shortness of breath. Single frontal view of the chest performed at 2129 hours was reviewed. Comparison is made with previous exam dated May 24, 2017. Cardiomegaly. Patient is status post changed sternal thoracotomy. Interstitial edema is present consistent with CHF. Findings are consistent with previous exam of May 24, 2017. IMPRESSION: CARDIOMEGALY WITH INTERSTITIAL EDEMA AND CHF.
[2017-06-12 22:16] LABS: ABS Basophils 0.1 10^3/ul (0-0.2); ABS Eosinophils 0.1 10^3/ul (0-0.6); ABS Monocytes 0.7 10^3/ul (0-0.8); ABS Neutrophils 3.4 10^3/ul (1.5-7.7); ABS Nucleated RBC 0 10^3/ul; Eosinophil % 1.5 % (0-6); Hematocrit 25 % (35-47); Hemoglobin 8.4 g/dl (12.0-16.0); Lymphocyte % 18.6 % (25-47); Mean Corpuscular HGB Conc 34 g/dl (31-36); Mean Corpuscular Hemoglobin 35 pg (27-31); Mean Corpuscular Volume 103 fL (80-97); Mean Platelet Volume 9 um3 (7.4-10.4); Nucleated Red Blood Cells % 0.2; Platelet Count 129 10^3/ul (150-450); Red Blood Count 2.41 10^6/ul (4.0-5.4); Red Cell Distribution Width 18 % (10.5-15); White Blood Count 5.2 10^3/ul (3.5-10.8)
[2017-06-12] MEDS ORDERED: Labetalol IV* 5 MG/ML 20 ML VIAL IV PUSH ONE ×2 (22:29→23:44)
[2017-06-12 22:33] LABS: EGFR Non-African American 13.6 (>60)
[2017-06-12 22:39] LABS: INR 1.02 (0.77-1.02)
--- NOTE | 2017-06-12 23:36 | HP ---
H&P (Free Text) History and Physical: PCP: Kaiser Burns MD Date/Time of Evaluation: 06/12/2017 2330 CC: SOB, cough, chest pain HPI: Mrs Joseph is a 46YO female well known to the Hospitalist Service with a complex PMedHX outlined below. She presents with complaint of cough & congestion for the past 2 months, worse over the last few days with sharp R inferior chest wall pain, subjective F/C, sweats, nausea without emesis, diarrhea (3 watery stools yesterday), & SOB. Activity & palpation increase the pain & SOB. She notes no alleviating factors. She denies any missed dialysis sessions recently. PMedHx ESRD-HD DVT/PE complicated by alveolar hemorrhage TAVR within prior porcine aortic valve replacement mitral valve replacement pulmonary hemorrhage superior vena cava syndrome COPD CAD/CO chronic diastolic HF AFIB endocarditis anemia of renal disease HTN HLD depression/anxiety Ambulatory Orders Nursing to reconcile. Cinacalcet HCl [Sensipar] 90 mg PO DAILY 10/11/16 Lidocaine-Prilocaine [Lidocaine/Prilocaine] 1 cre TOPICAL EVERY OTHER DAY Montelukast Sodium TAB* [Singulair 10 MG TAB*] 10 mg PO DAILY 10/11/16 Sodium Polystyrene ORAL.GISELA* [Kayexalate ORAL.GISELA*] 15 gm PO DAILY 10/11/16 Vitamin E [Natural Vitamin E] 400 unit PO BID 10/11/16 diPHENhydraMINE PO* [Benadryl PO 25 MG TAB*] 25 mg PO BEDTIME 10/11/16 Nitroglycerin TAB 0.4 MG* 0.4 mg SL Q5M PRN #0 tab 11/10/16 ALPRAZolam TAB* [Xanax TAB*] 0.25 mg PO TID PRN 12/31/16 Aspirin EC Low Dose* [Ecotrin EC Low Dose 81 MG*] 81 mg PO DAILY 12/31/16 B-Complex W/ C & Folic Acid [Dialyvite 800 0.8 mg] 1 tab PO DAILY 12/31/16 Clonidine HCl [Clonidine HCl 0.3 MG] 0.3 mg PO BID 12/31/16 Labetalol TAB* [Trandate TAB*] 200 mg PO BID 12/31/16 Sevelamer TAB* [Renvela TAB*] 4,000 mg PO TID WITH MEALS 12/31/16 Albuterol/Ipratropium RESP(NF) [Combivent Respimat (NF)] 1 aer IN Q6H #1 inh 04/11 Apixaban* [Eliquis*] 5 mg PO BID #60 tab 01/03/17 Mometasone/Formoter 200/5 MDI* [Dulera 200/5 MDI*] 2 puff INH BID #1 inh Sertraline* [Zoloft*] 25 mg PO DAILY #30 tab 01/03/17 Tiotropium CAP.INH* [Spiriva CAP.INH*] 1 cap.inh INH DAILY #1 inh 01/03/17 Diltiazem HCl Coated Beads [Diltiazem Cd] 300 mg PO DAILY #30 cap 03/19/17 Metoprolol Tartrate TAB* [Lopressor TAB*] 75 mg PO BID #180 tab 03/19/17 Polyethylene Glycol 3350* [Miralax*] 17 gm PO DAILY PRN #0 packet 03/19/17 oxyCODONE TAB* [Roxycodone TAB 5 mg*] 15 mg PO Q4H PRN #180 tab MDD 18 tabs 06/12 Allergies Iodixanol [From Visipaque] Allergy (Severe, Verified 05/15/17 00:07) Airway Obstruction Angioedema of tongue, upper airway Lisinopril Allergy (Severe, Verified 05/15/17 00:07) Difficulty Breathing Penicillins Allergy (Severe, Verified 05/15/17 00:07) HIVES,SWELLING THROAT Cephalosporins Allergy (Verified 05/15/17 00:07) not specified PSurgHx CABG porcine MVR & AVR TAVR within prior porcine AVR hysterectomy knee arthroscopies SocHx: <1/4PPD cigarettes, denies alcohol and recreational drug HX; lives with her children; on disability; full code status FamHx: reviewed, non-contributory ROS: as above, otherwise reviewed and all were negative Constitutional: NAD, normally developed, overweight black female vitals: Vital Signs Temp 37.5 C 06/13/17 03:06 Pulse 93 06/13/17 06:00 Resp 19 06/13/17 06:00 BP 170/118 06/13/17 06:00 Pulse Ox 100 06/13/17 06:00 Intake & Output 06/12/17 06/12/17 06/13/17 11:59 23:59 11:59 Intake Total 210 323.6 Balance 210 323.6 Weight 86.183 kg 88.8 kg Intake: IV Fluids 210 Medicated IV 23.6 CC - Nitroglycerine/ 23.6 Tridil Oral 300 HEENM: atraumatic; sclera/conjunctiva: non-icteric/clear; hearing: clinically intact; oropharynx: clear, mucosa moist Neck: soft tissue: non-tender; thyroid: normal Pulmonary: diminshed with scant diffuse crackles B, mild mid- to end-expiratory wheeze, fair aeration, no accessory muscle use CV: IR/IR, normal S1S2, 2/6 blowing systolic murmur; no jugular venous distention, 2+ B DP/PT, 1+ BLE edema, chest pain reproduced with light inferior R chest wall palpation Abdominal: soft, non-distended, non-tender, no rebound/guarding/rigidity, normoactive bowel sounds, no hepatosplenomegaly or masses, no costovertebral angle tenderness Musculoskeletal: general: grossly intact, diffuse R-sided reproducible chest wall pain with light palpation Integumental: normal appearance and texture of exposed skin Psychiatric orientation: AA&O to PPS affect: anxious mood: cooperative eye contact: fair content: reliable responses: timely insight: poor Testing: Lab Results 06/12/17 06/12/17 06/12/17 Range/Units 22:00 22:00 22:00 WBC (3.5-10.8) 10^3/ul RBC (4.0-5.4) 10^6/ul Hgb (12.0-16.0) g/dl Hct (35-47) % MCV (80-97) fL MCH (27-31) pg MCHC (31-36) g/dl RDW (10.5-15) % Plt Count (150-450) 10^3/ul MPV (7.4-10.4) um3 Neut % (Auto) (38-83) % Lymph % (Auto) (25-47) % [place] % (Auto) (1-9) % Eos % (Auto) (0-6) % Baso % (Auto) (0-2) % Absolute Neuts (auto) (1.5-7.7) 10^3/ul Absolute Lymphs (auto) (1.0-4.8) 10^3/ul Absolute Monos (auto) (0-0.8) 10^3/ul Absolute Eos (auto) (0-0.6) 10^3/ul Absolute Basos (auto) (0-0.2) 10^3/ul Absolute Nucleated RBC 10^3/ul Nucleated RBC % INR (Anticoag Therapy) 1.02 (0.77-1.02) APTT 33.2 (26.0-36.3) seconds Patient Temperature ABG pH (7.35-7.45) ABG pH (Temp Correct) ABG pCO2 (35-45) mmHg ABG pCO2 (Temp Corrct ABG pO2 (80-100) mmHg ABG pO2 (Temp Correct ABG HCO3 (19-31) mmol/L ABG O2 Saturation (95-98) % ABG Base Excess (-2.0-2.0) Respiration Rate O2 Delivery Device Ventilator Type Vent Mode FiO2 Inspiratory Time PEEP Pressure Support Pressure Control EPAP IPAP BiPAP Sodium 135 (133-145) mmol/L Potassium 3.2 L (3.5-5.0) mmol/L Chloride 92 L (101-111) mmol/L Carbon Dioxide 35 H (22-32) mmol/L Anion Gap 8 (2-11) mmol/L BUN 13 (6-24) mg/dL Creatinine 3.60 H (0.51-0.95) mg/dL Est GFR ( Amer) 17.5 (>60) Est GFR (Non-Af Amer) 13.6 (>60) BUN/Creatinine Ratio 3.6 L (8-20) Glucose 88 (70-100) mg/dL Lactic Acid (0.5-2.0) mmol/L Calcium 10.1 (8.6-10.3) mg/dL Total Bilirubin 1.00 (0.2-1.0) mg/dL AST 26 (13-39) U/L ALT 16 (7-52) U/L Alkaline Phosphatase 85 (34-104) U/L Troponin I 0.13 H* (<0.04) ng/mL C-Reactive Protein 10.80 H (< 5.00) mg/L B-Natriuretic Peptide 3754 H ( - 100) pg/mL Total Protein 6.5 (6.4-8.9) g/dL Albumin 4.0 (3.2-5.2) g/dL Globulin 2.5 (2-4) g/dL Albumin/Globulin Ratio 1.6 (1-3) Influenza A (Rapid) (Negative) Influenza B (Rapid) (Negative) 06/12/17 06/12/17 06/12/17 Range/Units 22:00 22:00 23:14 WBC 5.2 (3.5-10.8) 10^3/ul RBC 2.41 L (4.0-5.4) 10^6/ul Hgb 8.4 L (12.0-16.0) g/dl Hct 25 L (35-47) % MCV 103 H (80-97) fL MCH 35 H (27-31) pg MCHC 34 (31-36) g/dl RDW 18 H (10.5-15) % Plt Count 129 L (150-450) 10^3/ul MPV 9 (7.4-10.4) um3 Neut % (Auto) 65.2 (38-83) % Lymph % (Auto) 18.6 L (25-47) % [place] % (Auto) 13.6 H (1-9) % Eos % (Auto) 1.5 (0-6) % Baso % (Auto) 1.1 (0-2) % Absolute Neuts (auto) 3.4 (1.5-7.7) 10^3/ul Absolute Lymphs (auto) 1.0 (1.0-4.8) 10^3/ul Absolute Monos (auto) 0.7 (0-0.8) 10^3/ul Absolute Eos (auto) 0.1 (0-0.6) 10^3/ul Absolute Basos (auto) 0.1 (0-0.2) 10^3/ul Absolute Nucleated RBC 0 10^3/ul Nucleated RBC % 0.2 INR (Anticoag Therapy) (0.77-1.02) APTT (26.0-36.3) seconds Patient Temperature Not Reportable ABG pH 7.59 H (7.35-7.45) ABG pH (Temp Correct) Not Reportable ABG pCO2 40 (35-45) mmHg ABG pCO2 (Temp Corrct Not Reportable ABG pO2 155 H (80-100) mmHg ABG pO2 (Temp Correct Not Reportable ABG HCO3 36.9 H (19-31) mmol/L ABG O2 Saturation 99.9 H (95-98) % ABG Base Excess 15.3 H (-2.0-2.0) Respiration Rate 12 O2 Delivery Device bipap Ventilator Type Not Reportable Vent Mode Not Reportable FiO2 60 Inspiratory Time Not Reportable PEEP Not Reportable Pressure Support Not Reportable Pressure Control Not Reportable EPAP 5 IPAP 12 BiPAP Not Reportable Sodium (133-145) mmol/L Potassium (3.5-5.0) mmol/L Chloride (101-111) mmol/L Carbon Dioxide (22-32) mmol/L Anion Gap (2-11) mmol/L BUN (6-24) mg/dL Creatinine (0.51-0.95) mg/dL Est GFR ( Amer) (>60) Est GFR (Non-Af Amer) (>60) BUN/Creatinine Ratio (8-20) Glucose (70-100) mg/dL Lactic Acid 0.7 (0.5-2.0) mmol/L Calcium (8.6-10.3) mg/dL Total Bilirubin (0.2-1.0) mg/dL AST (13-39) U/L ALT (7-52) U/L Alkaline Phosphatase (34-104) U/L Troponin I (<0.04) ng/mL C-Reactive Protein (< 5.00) mg/L B-Natriuretic Peptide ( - 100) pg/mL Total Protein (6.4-8.9) g/dL Albumin (3.2-5.2) g/dL Globulin (2-4) g/dL Albumin/Globulin Ratio (1-3) Influenza A (Rapid) (Negative) Influenza B (Rapid) (Negative) 06/12/17 06/13/17 06/13/17 Range/Units 23:38 05:37 05:37 WBC 5.3 (3.5-10.8) 10^3/ul RBC 2.41 L (4.0-5.4) 10^6/ul Hgb 8.4 L (12.0-16.0) g/dl Hct 25 L (35-47) % MCV 103 H (80-97) fL MCH 35 H (27-31) pg MCHC 34 (31-36) g/dl RDW 17 H (10.5-15) % Plt Count 121 L (150-450) 10^3/ul MPV 9 (7.4-10.4) um3 Neut % (Auto) 93.1 H (38-83) % Lymph % (Auto) 4.1 L (25-47) % [place] % (Auto) 2.2 (1-9) % Eos % (Auto) 0.1 (0-6) % Baso % (Auto) 0.5 (0-2) % Absolute Neuts (auto) 4.9 (1.5-7.7) 10^3/ul Absolute Lymphs (auto) 0.2 L (1.0-4.8) 10^3/ul Absolute Monos (auto) 0.1 (0-0.8) 10^3/ul Absolute Eos (auto) 0 (0-0.6) 10^3/ul Absolute Basos (auto) 0 (0-0.2) 10^3/ul Absolute Nucleated RBC 0 10^3/ul Nucleated RBC % 0.1 INR (Anticoag Therapy) (0.77-1.02) APTT (26.0-36.3) seconds Patient Temperature ABG pH (7.35-7.45) ABG pH (Temp Correct) ABG pCO2 (35-45) mmHg ABG pCO2 (Temp Corrct ABG pO2 (80-100) mmHg ABG pO2 (Temp Correct ABG HCO3 (19-31) mmol/L ABG O2 Saturation (95-98) % ABG Base Excess (-2.0-2.0) Respiration Rate O2 Delivery Device Ventilator Type Vent Mode FiO2 Inspiratory Time PEEP Pressure Support Pressure Control EPAP IPAP BiPAP Sodium 132 L (133-145) mmol/L Potassium 3.8 (3.5-5.0) mmol/L Chloride 90 L (101-111) mmol/L Carbon Dioxide 33 H (22-32) mmol/L Anion Gap 9 (2-11) mmol/L BUN 16 (6-24) mg/dL Creatinine 4.17 H (0.51-0.95) mg/dL Est GFR ( Amer) 14.8 (>60) Est GFR (Non-Af Amer) 11.5 (>60) BUN/Creatinine Ratio 3.8 L (8-20) Glucose 121 H (70-100) mg/dL Lactic Acid (0.5-2.0) mmol/L Calcium 10.1 (8.6-10.3) mg/dL Total Bilirubin (0.2-1.0) mg/dL AST (13-39) U/L ALT (7-52) U/L Alkaline Phosphatase (34-104) U/L Troponin I Pending (<0.04) ng/mL C-Reactive Protein (< 5.00) mg/L B-Natriuretic Peptide ( - 100) pg/mL Total Protein (6.4-8.9) g/dL Albumin (3.2-5.2) g/dL Globulin (2-4) g/dL Albumin/Globulin Ratio (1-3) Influenza A (Rapid) Negative (Negative) Influenza B (Rapid) Negative (Negative) ECG, personally reviewed: AFIB rate 96, mild ST depression V5/6, I, & II CXR, personally reviewed: IMPRESSION: CARDIOMEGALY WITH INTERSTITIAL EDEMA AND CHF. US abdomen: IMPRESSION: Atrophic right kidney. No cholelithiasis. CT abd/pel WO, personally reviewed: IMPRESSION: Renal atrophy suggesting renal failure. Correlation with renal function is recommended. Cardiomegaly suggesting cardiomyopathy. Atelectatic changes at the lung bases. Small fluid collection in the right pelvis is diminished in size from the previous study. The finding is non-specific and may be related to resolving ascites, or dialysis. Finding may also be related to enteric inflammation. ECHO (03/13/2017): Conclusions: The left ventricular chamber size is normal. Severe concentric left ventricular hypertrophy is observed. There is normal left ventricular systolic function. The estimated ejection fraction is 55-60%. The left atrium is severely dilated. The right atrial cavity size is severely dilated. A #23 Sapian TAVR valve, inside a prior bioprosthetic valve is present. The leaflets appear to move unrestricted. The mean gradient of the aortic valve is 32.65 mmHg. There is mild to moderate mitral regurgitation. There is mild mitral stenosis. There is moderate tricuspid regurgitation. There is evidence of mild pulmonary hypertension. There is mild pulmonic regurgitation. There is mild dilatation of the aortic root. The patient is noted to be in atrial fibrillation. Compared to report of study from 11/07/2016 It is now understood the aortic valve is a TAVR valve inside a prior bioprosthetic valve (TAVR procedure was performed 05/31/2016 at [facility] ) The degree of tricuspid regurgitation is less (was moderate to severe) , the degree of mitral regurgitation is less (was moderate). The mean gradient across the aortic valve is mildly increased (was 27.7 mm hg) but this can vary due to hemodynamic. The leaflets appear to move relatively unrestricted. Impression: 46F w/ complex medical HX outlined above presents with cough, R inferior chest pain, fever & sweats with CXR suspicious for RLL infiltrate DIAGNOSIS & PLAN Primary RLL pneumonia : IV levofloxacin : IVFs : blood & sputum CXs : supplemental oxygen : supportive care hypertensive urgency : nitroGTT titrate to systolic 150-165 chest pain : suspect 2nd cough : troponin likely 2nd demand ischemia : telemetry : trend troponin : consider cardiology consult pending troponin trend : supplemental oxygen COPD, exacerbation : albuterol neb : mometasone/formoterol : tiotropium : IV methylprednisolone : guiafenesin/codeine & benzonatate : supplemental oxygen : incentive spirometry : supportive care ESRD (TuThSa) : consult Inna Osorio MD nephrology in AM for continuation of dialysis : continue sevelamer & cinacalcet once reconciled Secondary anemia of renal disease : monitor periodically HTN : review meds once reconciled HLD : review meds once reconciled CAD/CO : review meds once reconciled chronic diastolic HF : daily weights : strict I&Os : heart healthy diet anxiety : review meds once reconciled HX DVT/PE & superior vena cava syndrome : continue apixaban Admission Rational: inpatient for IVFs & IV ABX in patient at high risk of morbidity & mortality; inappropriate for outpatient setting DVTp: apixaban Code Status: full
[2017-06-12] MEDS ORDERED: Nitroglycerin 2% OINT* 1 GM PAK TOPICAL ONE (23:46)
[2017-06-13] MEDS ORDERED: Nitroglycerin 2% OINT* 1 GM PAK ONE (00:36)
--- NOTE | 2017-06-13 01:05 | ED ---
Jake Greenwood Nikita, scribed for Elfar, Abdul, MD on 06/12/17 at 2126 . Shortness of Breath - HPI Summary HPI Summary: This patient is a 46 year old F BIBA to [facility] with a chief complaint of SOB since this morning. Her last dialysis was today at 1300 which did not alleviate the SOB. The patient rates the pain 8/10 in severity. Symptoms aggravated and alleviated by nothing. Patient reports coughing, chills, and wheezing. Patient denies fever. She uses a nasal cannula of 2 L/min at home and has had a catheter in the groin area for two years. - History of Current Complaint Chief Complaint: EDShortnessOfBreath Time Seen by Provider: 06/12/17 21:09 Hx Obtained From: Patient Onset/Duration: Sudden Onset, Lasting Hours, Still Present Timing: Constant Current Severity: Moderate - 8/10 Aggrevating Factors: Nothing Alleviating Factors: Nothing Associated Signs & Symptoms: Chills - Patient reports coughing, chills, and wheezing. - Allergy/Home Medications Allergies/Adverse Reactions: Allergies Allergy/AdvReac Type Severity Reaction Status Date / Time Iodixanol [From Visipaque] Allergy Severe Airway Verified 05/15/17 00:07 Obstruction Lisinopril Allergy Severe Difficulty Verified 05/15/17 00:07 Breathing Penicillins Allergy Severe HIVES,SWELLING Verified 05/15/17 00:07 THROAT Cephalosporins Allergy not Verified 05/15/17 00:07 specified PMH/Surg Hx/FS Hx/Imm Hx Endocrine/Hematology History: Reports: Hx Anticoagulant Therapy, Hx Blood Transfusions, Hx Anemia, Hx Unexplained Bleeding Denies: Hx Blood Disorders, Hx Bone Marrow Disease, Hx Diabetes, Hx Systemic Lupus Erythematosus, Hx Sickle Cell Disease, Hx Thyroid Disease, Other Endocrine /Hematological Disorders Cardiovascular History: Reports: Hx Angina, Hx Cardiomegaly, Hx Congestive Heart Failure, Hx Coronary Artery Disease, Hx Deep Vein Thrombosis, Hx Embolism , Hx Hypercholesterolemia, Hx Hypertension, Hx Myocardial Infarction, Hx Valvular Heart Disease, Other Cardiovascular Problems/Disorders - 2 artificial heart valves; Hx of endocarditis Denies: Hx Aneurysm, Hx Angioplasty, Hx Auto Implanted Cardiovert Defib, Hx Cardiac Arrest, Hx Congenital Heart Disease, Hx Hypotension, Hx Pacemaker/ICD, Hx Peripheral Vascular Disease, Hx Rheumatic Fever, Hx Syncope Respiratory History: Reports: Hx Asthma, Hx Chronic Obstructive Pulmonary Disease (COPD), Hx Pneumonia, Hx Pulmonary Edema, Hx Pulmonary Embolism Denies: Hx Chronic Bronchitis, Hx Cystic Fibrosis, Hx Lung Cancer, Hx Pleural Effusion, Hx Seasonal Allergies, Hx Sleep Apnea, Other Respiratory Problems/Disorders History: Reports: Hx Acute Renal Failure, Hx Chronic Renal Failure, Hx Dialysis - ESRD, [place] ON //FRI, Hx Renal Disease Denies: Hx Benign Prostatic Hyperplasia, Hx Kidney Infection, Hx Kidney Stones, Other Problems/Disorders Musculoskeletal History: Reports: Hx Arthritis, Hx Back Problems Denies: Hx Bursitis, Hx Congenital Bone Abnormalities, Hx Fibromyalgia, Hx Gout, Hx Orthopedic Injury, Hx Osteoporosis, Hx Scoliosis, Hx Tendonitis, Other Musculoskeletal History Sensory History: Denies: Hx Contacts or Glasses, Hx Hearing Aid Opthamlomology History: Denies: Hx Contacts or Glasses Neurological History: Reports: Hx Headaches Denies: Hx Dementia, Hx Developmental Delay, Hx Migraine, Hx Nerve Disease, Hx Seizures, Hx Spinal Cord Injury, Hx Transient Ischemic Attacks (TIA), Other Neuro Impairments/Disorders Psychiatric History: Reports: Hx Anxiety, Hx Depression Denies: Hx Attention Deficit Hyperactivity Disorder, Hx Eating Disorder, Hx Panic Disorder, Hx Post Traumatic Stress Disorder, Hx Inpatient Treatment, Hx Community Mental Health Tx, Hx Schizophrenia, Hx Bipolar Disorder, Hx Suicide Attempt, Hx of Violent Episodes Against Others, Hx Substance Abuse, Other Psychiatric Issues/Disorders - Surgical History Surgery Procedure, Year, and Place: bilateral knees, dialysis tube placed in abdomen( out), fistula tube placement in arm for dialysis Lt arm has been revised. waiting out ok to use [id number], open heart valve replacement, hysterectomy, stents Hx Anesthesia Reactions: No - Immunization History Date of Tetanus Vaccine: Unk Date of Influenza Vaccine: Unk Infectious Disease History: Yes Infectious Disease History: Reports: Hx of Known/Suspected MRSA Denies: Hx Clostridium Difficile, Hx Hepatitis, Hx Human Immunodeficiency Virus (HIV), Hx Shingles, Hx Tuberculosis, Hx Known/Suspected VRE, History Other Infectious Disease, Traveled Outside the [place] in Last 30 Days - Family History Known Family History: Positive: Hypertension - Mother, Diabetes - Mother, Other - negative FHx for malignant hyperthermia and anesthesia rxn. Family History: Father -- Lung CA - Social History Alcohol Use: None Hx Substance Use: No Substance Use Type: Reports: None Hx Tobacco Use: Yes Smoking Status (MU): Former Smoker Type: Cigarettes Amount Used/How Often: 1 cigarettes a day Length of Time of Smoking/Using Tobacco: 15 Have You Smoked in the Last Year: Yes Review of Systems Positive: Chills. Negative: Fever Positive: Shortness Of Breath, Cough, Other - Wheezing All Other Systems Reviewed And Are Negative: Yes Physical Exam - Summary Physical Exam Summary: VITAL SIGNS: Reviewed. GENERAL: ~Patient is a well-developed and nourished female who is lying comfortable in the stretcher. Patient is not in any acute respiratory distress. Dialysis catheter in the left groin. HEAD AND FACE: No signs of trauma. No ecchymosis, hematomas or skull depressions. No sinus tenderness. EYES: PERRLA, EOMI x 2, No injected conjunctiva, no nystagmus. EARS: Hearing grossly intact. Ear canals and tympanic membranes are within normal limits. MOUTH: Oropharynx within normal limits. NECK: Supple, trachea is midline, no adenopathy, no JVD, no carotid bruit, no c- spine tenderness, neck with full ROM. CHEST: Symmetric, no tenderness at palpation.. LUNGS: Mild to moderate respiratory distress. Bilateral expiratory wheezes and rhonchi. Tachypnic. CVS: Tachycardic.Irregular. ABDOMEN: Soft, non-tender. No signs of distention. No rebound no guarding, and no masses palpated. Bowel sounds are normal. EXTREMITIES: FROM in all major joints, no edema, no cyanosis or clubbing. NEURO: Alert and oriented x 3. No acute neurological deficits. Speech is normal and follows commands. SKIN: Dry and warm Triage Information Reviewed: Yes Vital Signs On Initial Exam: Initial Vitals BP 196/123 06/12/17 20:55 Vital Signs Reviewed: Yes - Gillett Coma Scale Coma Scale Total: 15 Diagnostics - Vital Signs Vital Signs Temp Pulse Resp BP Pulse Ox 06/12/17 21:00 118 25 204/128 97 06/12/17 20:59 31 06/12/17 20:56 99.4 F 83 35 196/123 94 06/12/17 20:55 196/123 - Laboratory Result Diagrams: 06/12/17 22:00 06/12/17 22:00 Lab Statement: Any lab studies that have been ordered have been reviewed, and results considered in the medical decision making process. - Radiology CXR Radiology Interpretation Completed By: Radiologist - CARDIOMEGALY WITH INTERSTITIAL EDEMA AND CHF. ED physician has reviewed this radiology report. - CT A/P CT Interpretation Completed By: Radiologist - Renal atrophy suggesting renal failure. Correlation with renal function is recommended. Cardiomegaly suggesting cardiomyopathy. Atelectatic changes at the lung bases. Small fluid collection in the right pelvis is diminished in size from the previous study. The finding is nonspecific and may be related to resolving ascites or dialysis. Finding may also be related to enteric inflammation.ED physician has reviewed this radiology report. - Ultrasound No standard instances Ultrasound Interpretation Completed By: Radiologist - Abdominal US:Atrophic right kidney. No cholethiasis.ED physician has reviewed this radiology report. - EKG 2125 Cardiac Rate: Other Rate EKG Rhythm: Atrial Fibrillation - 96 BPM EKG Interpretation: LVH and PVC Course/Dx - Course Assessment/Plan: This patient is a 46 year old F BIBA to [facility] with a chief complaint of difficulty breathing since this morning. This patient has had multiple visits to the hospital. The pt also complains of CP and a low grade fever. Pt states she had a dialysis this morning where 4 kilos of fluid was taken out. On exam, the pt had rhonchi and wheezing. In the ED course, the pt was put on bipap. After 2-3 hours, she was taken off the bipap and her O2 sat was 160. She then c/o RUQ abdominal pain. Abdomen US reveals negative for gallstones. CXR reveals R lower lobe filtrate. Radiologists interpretation stated of volume overload. The pts BP was elevated. So, the pt was given hydralazine/labetalol. Pt will have a CT taken to r/o abdominal pathology. CT A/ P reveals renal atrophy suggesting renal failure. Correlation with renal function is recommended. Cardiomegaly suggesting cardiomyopathy. Atelectatic changes at the lung bases. Small fluid collection in the right pelvis is diminished in size from the previous study. The finding is nonspecific and may be related to resolving ascites or dialysis. Finding may also be related to enteric inflammation. Consulted Dr. Li at 0000 who accepts the pt for admission. - Diagnoses Differential Diagnosis/HQI/PQRI: Positive: Other - R lower lobe PNA, abdominal pain, afib Provider Diagnoses: Right lower lobe pneumonia, Atrial fibrillation, Abdominal pain - Physician Notifications Discussed Care of Patient With: Thomas Li Time Discussed With Above Provider: 00:00 Instructed by Provider To: Other - Consulted Dr. Li who accepts pt for admission. Discharge - Discharge Plan Condition: Stable Disposition: ADMITTED TO [facility] Referrals: No Primary Care Phys,NOPCP [Primary Care Provider] - The documentation as recorded by the Jake sosa Nikita accurately reflects the service I personally performed and the decisions made by me, Yoselyn Vicente MD.
[2017-06-13] MEDS ORDERED: Albuterol 2.5 MG/3 ML NEB.SOL* (0.083%) INH PRN (01:41)
[2017-06-13] MEDS ORDERED: CMCS: Melatonin (NF) 3 MG TAB PO PRN (01:41)
[2017-06-13] MEDS ORDERED: Acetaminophen TAB* 325 MG PO PRN (01:41)
[2017-06-13] MEDS ORDERED: guaiFENesin/CODIEN 100MG-10MG* 5 ML UDC PO PRN (01:43)
[2017-06-13] MEDS ORDERED: nitroGLYCERIN DRIP* 25,000 MCG/250 ML BTL IV ONE (01:44)
[2017-06-13] MEDS ORDERED: Polyethylene Glycol 3350* 17 GM PACKET PO PRN (02:02)
[2017-06-13] MEDS: Omeprazole CAP* 20 MG PO SCH (03:26)
[2017-06-13] MEDS: oxyCODONE TAB* 5 MG TAB PO PRN ×4 (03:26→18:47)
[2017-06-13] MEDS: ALPRAZolam TAB* 0.25 MG PO PRN ×2 (03:26→21:02)
[2017-06-13] MEDS ORDERED: Omeprazole CAP* 20 MG ONE (03:26)
[2017-06-13 05:46] LABS: ABS Basophils 0 10^3/ul (0-0.2); ABS Eosinophils 0 10^3/ul (0-0.6); ABS Lymphocytes 0.2 10^3/ul (1.0-4.8); ABS Monocytes 0.1 10^3/ul (0-0.8); ABS Neutrophils 4.9 10^3/ul (1.5-7.7); ABS Nucleated RBC 0 10^3/ul; Eosinophil % 0.1 % (0-6); Hematocrit 25 % (35-47); Hemoglobin 8.4 g/dl (12.0-16.0); Lymphocyte % 4.1 % (25-47); Mean Corpuscular HGB Conc 34 g/dl (31-36); Mean Corpuscular Hemoglobin 35 pg (27-31); Mean Corpuscular Volume 103 fL (80-97); Mean Platelet Volume 9 um3 (7.4-10.4); Nucleated Red Blood Cells % 0.1; Platelet Count 121 10^3/ul (150-450); Red Blood Count 2.41 10^6/ul (4.0-5.4); Red Cell Distribution Width 17 % (10.5-15); White Blood Count 5.3 10^3/ul (3.5-10.8)
[2017-06-13 05:59] LABS: EGFR Non-African American 11.5 (>60)
[2017-06-13] MEDS ORDERED: nitroGLYCERIN DRIP* 25,000 MCG/250 ML BTL IV SCH (07:00)
--- NOTE | 2017-06-13 07:42 | RAD ---
HISTORY: Right upper quadrant pain COMPARISONS: CT dated September 19, 2016 TECHNIQUE: Multiple transverse and longitudinal ultrasound images were obtained of the right upper quadrant of the abdomen using grayscale and color Doppler imaging. FINDINGS: The study is somewhat technically limited secondary to patient physical condition. LIVER: The liver is diffusely echogenic and coarse in echotexture, with decreased acoustic transmission. The liver measures 17.8 cm in long axis.. There is normal hepatopedal flow of the portal vein on Doppler imaging. BILIARY TREE: There is no intrahepatic or extrahepatic biliary dilatation. The common duct measures 0.3 cm. GALLBLADDER: The gallbladder is well-visualized. There is no cholelithiasis, gallbladder wall thickening, pericholecystic fluid, or sonographic Bryson sign. PANCREAS: The pancreas is obscured by overlying bowel gas. RIGHT KIDNEY: The right kidney is atrophic and echogenic. There is no hydronephrosis or nephrolithiasis. The right kidney measures 7.8 x 2.9 x 3.8 cm. AORTA AND IVC: The aorta and IVC are unremarkable. FLUID: There are no pleural effusions. There is no free fluid within the hepatorenal recess. OTHER FINDINGS: None. IMPRESSION: 1. FATTY INFILTRATION OF THE LIVER. 2. ATROPHIC ECHOGENIC RIGHT KIDNEY
--- NOTE | 2017-06-13 07:47 | RAD ---
CLINICAL HISTORY: Abdominal pain COMPARISON: Ultrasound dated June 12, 2012, CT dated September 19, 2016 TECHNIQUE: Multiple contiguous axial CT scans were obtained of the abdomen and pelvis, without intravenous contrast enhancement. Coronal and sagittal multiplanar reformations are submitted for review. Oral contrast was not administered. FINDINGS: The study is limited by the lack of intravenous contrast. This limits evaluation of the solid organs and vasculature. LUNG BASES: There is biatrial and biventricular enlargement. An aortic valvular prosthesis is noted. There is dependent atelectasis bilaterally. LIVER: The liver measures 20 cm in long axis. There are no focal hepatic parenchymal masses. BILE DUCTS: There is no intrahepatic or extrahepatic biliary dilatation. GALLBLADDER: The gallbladder is normal, without pericholecystic inflammatory change. PANCREAS: The pancreas is normal, without mass or ductal dilatation. SPLEEN: Normal in size and appearance. UPPER GI TRACT: Evaluation of the gastrointestinal tract is limited by incomplete gastric distention. The upper GI tract is unremarkable. SMALL BOWEL AND MESENTERY: The small bowel is normal in contour, course, and caliber. There is no obstruction or dilatation. COLON: The colon is normal in contour, course, caliber. There is no pericolonic inflammatory change. ADRENALS: Normal bilaterally. KIDNEYS: The kidneys are atrophic bilaterally. Multiple renal cysts are noted. BLADDER: The bladder is incompletely distended but is grossly normal. PELVIC ORGANS: The pelvic organs are not visualized. There is small amount of fluid within the pelvis. This has decreased in size compared to September 20, 2015. This measures simple fluid in attenuation. AORTA: There is calcific atherosclerotic disease of the abdominal aorta and its branches, without aneurysmal dilatation. A left femoral bypass graft is noted. The distal portion is not visualized. There are stable fusiform aneurysmal dilatation of the left common iliac artery. IVC: Unremarkable LYMPH NODES: There is no lymphadenopathy by size criteria. ABDOMINAL WALL: There is no evidence for abdominal wall hernia. BONES AND SOFT TISSUES: There are mild diffuse degenerative changes. OTHER: None IMPRESSION: 1. CARDIOMEGALY. 2. BIBASILAR ATELECTASIS. 3. HEPATOMEGALY. 4. ATROPHIC KIDNEYS. 5. ATHEROSCLEROSIS WITH STABLE ANEURYSMAL DILATATION OF THE LEFT COMMON ILIAC ARTERY. 6. SMALL AMOUNT OF FREE FLUID WITHIN THE PELVIS, DECREASED FROM SEPTEMBER 19, 2016
[2017-06-13] MEDS: Benzonatate CAP* 100 MG PO SCH ×3 (07:49→23:26)
[2017-06-13] MEDS: Ondansetron INJ* 2 MG/ML VIAL IV PRN ×3 (07:49→19:07)
[2017-06-13] MEDS: Tiotropium CAP.INH* CAP.INH/18 MCG (USE ORDER SET !) INH SCH (07:59)
[2017-06-13] MEDS: Mometasone/Formoter 200/5 MDI INH SCH ×2 (08:00→19:12)
[2017-06-13] MEDS ORDERED: DILTIAZEM HCL COATED BEADS PO SCH (09:00)
[2017-06-13] MEDS ORDERED: Metoprolol Tartrate TAB* 25 MG PO SCH (09:00)
[2017-06-13] MEDS ORDERED: Spiriva Inhaler DEVICE* 1 EACH DEVICE INH ONE (09:00)
[2017-06-13] MEDS: Sertraline* 25 MG TAB PO SCH (09:04)
[2017-06-13] MEDS: Diltiazem CD CAP* 120 MG PO SCH (09:08)
[2017-06-13] MEDS: cloNIDine TAB* 0.1 MG PO SCH ×2 (09:08→21:03)
[2017-06-13] MEDS: Docusate CAP* 100 MG PO SCH ×2 (09:09→21:03)
[2017-06-13] MEDS: Aspirin EC Low Dose* 81 MG TAB.EC PO SCH (09:09)
[2017-06-13] MEDS: Labetalol TAB* 200 MG PO SCH ×2 (09:09→21:03)
[2017-06-13] MEDS: Montelukast Sodium TAB* 10 MG PO SCH (09:09)
[2017-06-13] MEDS: Sodium Polystyrene ORAL.SOL* 15 GM/60 ML BTL PO SCH (09:10)
[2017-06-13] MEDS: Diltiazem CD CAP* 180 MG PO SCH (09:10)
[2017-06-13] MEDS: Sevelamer TAB* 800 MG PO SCH ×3 (09:14→18:03)
[2017-06-13] MEDS: Cinacalcet TAB* 30 MG PO SCH (09:14)
[2017-06-13] MEDS: Apixaban* 5 MG TAB PO SCH ×2 (09:14→21:03)
[2017-06-13] MEDS ORDERED: Morphine INJ* 2 MG/ML 1 ML SYRINGE (TWO MG - NEW SYRINGE VERSION) IV ONE (09:45)
[2017-06-13] MEDS ORDERED: Epoetin Alfa* 3,000 UNITS/ML VIAL IV ONE (12:00)
[2017-06-13] MEDS ORDERED: Heparin DIALYSIS ONLY(*) 1,000 UNITS/ML VIAL DIALYSIS ONE (12:00)
--- NOTE | 2017-06-13 12:27 | PN ---
Subjective Date of Service: 06/13/17 Interval History: Patient seen and examined at bedside. Denies fever, chills, shortness of breath , N/V/D. Pt reports chest pain, increased from her baseline, and right upper abdominal pain. Discussed with Juany her life goals, such as what she wants out of life quality vs quantity and she says her goal would be to see her 3 year old grandchild grow up. Tele: Afib, rate 90-120's. Occasionally HR 130-180's. Family History: Unchanged from Admission Social History: Unchanged from Admission Past Medical History: Unchanged from Admission Objective Active Medications: Acetaminophen (Tylenol Tab*) 650 mg PO Q6H PRN Reason: FEVER/PAIN Albuterol (Ventolin 2.5 Mg/3 Ml Neb.Tonya*) 2.5 mg INH Q2H PRN Reason: SOB/ WHEEZING Alprazolam (Xanax Tab*) 0.25 mg PO TID PRN Reason: ANXIETY Apixaban (Eliquis*) 5 mg PO BID [facility] Aspirin (Aspirin Ec Low Dose*) 81 mg PO DAILY [facility] Benzonatate (Tessalon Cap*) 100 mg PO Q8H [facility] Cinacalcet (Sensipar Tab*) 90 mg PO DAILY [facility] Clonidine HCl (Catapres Tab*) 0.3 mg PO BID [facility] Diltiazem HCl (Cardizem Cd Cap*) 120 mg PO DAILY [facility] Diltiazem HCl (Cardizem Cd Cap*) 180 mg PO DAILY [facility] Diphenhydramine HCl (Benadryl Po*) 25 mg PO BEDTIME [facility] Docusate Sodium (Colace Cap*) 200 mg PO BID [facility] Guaifenesin/Codeine Phosphate (Robitussin Ac 100mg-10mg*) 5 ml PO Q4H PRN Reason: COUGH Levofloxacin/Dextrose (Levaquin 500 Mg Ivpremix(*)) 500 mg in 100 mls @ 100 mls /hr IVPB Q48H [facility] Nitroglycerin/Dextrose (Nitroglycerin Drip*) 25,000 mcg in 250 mls @ 0 mls/hr IV .(Initial Rate) GHASSAN; Per Protocol Labetalol HCl (Trandate Tab*) 200 mg PO BID [facility] Melatonin (Melatonin (Nf)) 3 mg PO BEDTIME PRN; Protocol Reason: Sleep Methylprednisolone Sodium Succinate (Solu-Medrol 40 Mg) 40 mg IV Q8H [facility] Metoprolol Tartrate (Lopressor Tab*) 75 mg PO BID [facility]ASS[facility] Mometasone Furoate/Formoterol Fumar (Dulera 200/5 Mdi*) 2 puff INH BID [facility] Montelukast Sodium (Singulair Tab*) 10 mg PO DAILY [facility] Omeprazole (Prilosec Cap*) 20 mg PO DAILY@0600 [facility] Ondansetron HCl (Zofran Inj*) 4 mg IV Q6H PRN Reason: NAUSEA Oxycodone HCl (Roxycodone Tab*) 15 mg PO Q4H PRN Reason: PAIN Polyethylene Glycol/Electrolytes (Miralax*) 17 gm PO DAILY PRN Reason: CONSTIPATION Sertraline HCl (Zoloft*) 25 mg PO DAILY [facility] Sevelamer Carbonate (Renvela Tab*) 4,000 mg PO TID WITH MEALS [facility] Sodium Polystyrene Sulfonate (Kayexalate Oral.Tonya*) 15 gm PO DAILY [facility] Tiotropium [place] (Spiriva Cap.Inh*) 1 cap INH DAILY [facility] Vital Signs - 8 hr 06/13/17 06/13/17 06/13/17 04:30 04:45 05:00 Temperature Pulse Rate 88 90 117 Respiratory 17 18 19 Rate Blood Pressure 168/128 170/120 176/125 (mmHg) O2 Sat by Pulse 100 100 100 Oximetry 06/13/17 06/13/17 06/13/17 05:15 05:19 05:30 Temperature Pulse Rate 102 97 96 Respiratory 20 24 22 Rate Blood Pressure 168/125 175/130 (mmHg) O2 Sat by Pulse 98 100 100 Oximetry 06/13/17 06/13/17 06/13/17 05:45 05:46 06:00 Temperature Pulse Rate 96 90 93 Respiratory 20 18 19 Rate Blood Pressure 182/115 155/116 170/118 (mmHg) O2 Sat by Pulse 98 99 100 Oximetry 06/13/17 06/13/17 06/13/17 06:15 06:16 06:30 Temperature Pulse Rate 89 112 91 Respiratory 15 22 20 Rate Blood Pressure 187/119 174/129 179/125 (mmHg) O2 Sat by Pulse 98 99 100 Oximetry 06/13/17 06/13/17 06/13/17 06:45 06:49 06:51 Temperature Pulse Rate 97 97 91 Respiratory 19 18 17 Rate Blood Pressure 182/130 184/126 (mmHg) O2 Sat by Pulse 100 100 100 Oximetry 06/13/17 06/13/17 06/13/17 07:00 07:15 07:30 Temperature Pulse Rate 91 113 89 Respiratory 19 21 24 Rate Blood Pressure 165/121 183/114 167/136 (mmHg) O2 Sat by Pulse 100 100 100 Oximetry 06/13/17 06/13/17 06/13/17 07:43 07:45 07:55 Temperature 99.6 F Pulse Rate 90 Respiratory 20 17 Rate Blood Pressure 181/132 (mmHg) O2 Sat by Pulse 100 Oximetry 06/13/17 06/13/17 06/13/17 07:57 08:00 08:15 Temperature Pulse Rate 100 103 99 Respiratory 16 20 19 Rate Blood Pressure 170/127 160/128 181/121 (mmHg) O2 Sat by Pulse 94 92 95 Oximetry 06/13/17 06/13/17 06/13/17 08:30 08:45 08:55 Temperature Pulse Rate 105 115 110 Respiratory 35 18 19 Rate Blood Pressure 169/112 171/137 (mmHg) O2 Sat by Pulse 94 94 94 Oximetry 06/13/17 06/13/17 06/13/17 09:00 09:15 09:30 Temperature Pulse Rate 115 134 138 Respiratory 22 22 22 Rate Blood Pressure 177/129 172/121 188/145 (mmHg) O2 Sat by Pulse 96 96 96 Oximetry 06/13/17 06/13/17 06/13/17 09:45 10:00 10:15 Temperature Pulse Rate 124 106 101 Respiratory 20 13 22 Rate Blood Pressure 174/124 161/127 187/121 (mmHg) O2 Sat by Pulse 94 88 94 Oximetry 06/13/17 06/13/17 06/13/17 10:30 10:45 11:00 Temperature Pulse Rate 112 110 177 Respiratory 22 15 12 Rate Blood Pressure 169/120 180/123 159/124 (mmHg) O2 Sat by Pulse 94 96 94 Oximetry 06/13/17 06/13/17 06/13/17 11:15 11:28 11:30 Temperature Pulse Rate 135 127 Respiratory 24 24 14 Rate Blood Pressure 177/127 192/129 (mmHg) O2 Sat by Pulse 95 95 Oximetry 06/13/17 06/13/17 06/13/17 11:45 11:58 12:00 Temperature 96.5 F Pulse Rate 112 139 Respiratory 16 23 17 Rate Blood Pressure 178/125 (mmHg) O2 Sat by Pulse 93 95 Oximetry Oxygen Devices in Use Now: Nasal Cannula - 2L Appearance: NAD, sitting in bed Ears/Nose/Mouth/Throat: Mucous Membranes Moist Respiratory: Symmetrical Chest Expansion and Respiratory Effort, Clear to Auscultation Cardiovascular: NL Sounds; No Murmurs; No JVD, RRR, - - Chest pain is reproducible with palpation across the chest Abdominal: - - Tenderness to right upper abdomen, ABD soft, and non distended. Bowel sounds present Extremities: No Edema Skin: No Rash or Ulcers Neurological: Alert and Oriented x 3, NL Muscle Strength and Tone Lines/Tubes/Other Access: Clean, Dry and Intact Peripheral IV - site benign Nutrition: Taking PO's Result Diagrams: 06/13/17 05:37 06/13/17 05:37 Assess/Plan/Problems-Billing Assessment: Ms. Joseph is a 46 yo female with PMH significant for ESRD on HD, hx DVT/PE, s/p TAVR, superior vena cava syndrome, COPD, CAD, AR, Afib, chronic diastolic HF, HLD, HTN, anemia and afib who presented to the emergency room with complaints of cough, chest discomfort, and fevers. - Patient Problems (1) Pneumonia Code(s): J18.9 - PNEUMONIA, UNSPECIFIED ORGANISM SNOMED Code(s): 865830802 Comment: - Right lower lobe - Afebrile and no leukocytosis - Blood cultures pending - Urine for legionella and S. Peumo pending - Sputum culture pending - Continue Levaquin (Pt has a PCN and Cephalosporin allergy) (2) Hypertensive urgency Code(s): I16.0 - HYPERTENSIVE URGENCY SNOMED Code(s): 359103026 Comment: - Continues to be hyertensive - C/O headache from Nitro drip - Will wean Nitro drip and start hydralazine PRN - Continue clonidine, labetalol, diltiazem, metoprolol (increased to 100 mg BID) (3) Chest pain Code(s): R07.9 - CHEST PAIN, UNSPECIFIED SNOMED Code(s): 12618841 Comment: - Chronic - Pain is reproducible with palpation - Suspect a neuritic vs musculoskeletal pain from cough - Elevated troponin, peaked at 0.13. Suspect seconday to demand ischemia and ESRD (4) COPD exacerbation Code(s): J44.1 - CHRONIC OBSTRUCTIVE PULMONARY DISEASE W (ACUTE) EXACERBATION SNOMED Code(s): 429565136070996 Comment: - Acute complaints of CP and cough - Cough when lying down is related likely to fluid retention in this pt on HD. Offered codeine as a cough suppressant and semirecumbent position when sleeping - Continue corticosteroids, inhaled therapies, Robitussin AC, and benzonatate (5) Abdominal pain Code(s): R10.9 - UNSPECIFIED ABDOMINAL PAIN SNOMED Code(s): 86664150 Comment: - No acute findings on CT - Suspect secondary to coughing and muscular pain (6) End stage renal disease on dialysis Code(s): N18.6 - END STAGE RENAL DISEASE; Z99.2 - DEPENDENCE ON RENAL DIALYSIS SNOMED Code(s): 496246517 Comment: - Continue dialysis as scheduled - Received dialysis today (7) Anemia Code(s): D64.9 - ANEMIA, UNSPECIFIED SNOMED Code(s): 376377605 Comment: - H/H essentially at baseline. - Secondary to ESRD - Continue to follow intermittently. (8) HTN (hypertension) Code(s): I10 - ESSENTIAL (PRIMARY) HYPERTENSION SNOMED Code(s): 91436401 Comment: - Continues to be hypertensive - Continue home medications and continue to monitor (9) Atrial fibrillation Code(s): I48.91 - UNSPECIFIED ATRIAL FIBRILLATION SNOMED Code(s): 36589156 Comment: - With intermittent RVR - Continue diltiazem, metoprolol, labetolol and eliquis. (10) Congestive heart failure Code(s): I50.9 - HEART FAILURE, UNSPECIFIED SNOMED Code(s): 63629335 Comment: - Suspect acute on chronic exacerbation - Patient with history of combined systolic and diastolic HF - S/P dialysis 06/13 - Continue daily weights, strict I/O, volume restriction (11) History of DVT (deep vein thrombosis) Code(s): Z86.718 - PERSONAL HISTORY OF OTHER VENOUS THROMBOSIS AND EMBOLISM SNOMED Code(s): 975594293 Comment: - Also with hx of PE and superior vena cava syndrome - Continue home apixaban. (12) History of coronary artery disease Code(s): Z86.79 - PERSONAL HISTORY OF OTHER DISEASES OF THE CIRCULATORY SYSTEM SNOMED Code(s): 115067432 Comment: - Continue ASA and beta clara. (13) MALLORIE (obstructive sleep apnea) Code(s): G47.33 - OBSTRUCTIVE SLEEP APNEA (ADULT) (PEDIATRIC) SNOMED Code(s): 72751264 Comment: (14) S/P AVR (aortic valve replacement) Code(s): Z95.2 - PRESENCE OF PROSTHETIC HEART VALVE SNOMED Code(s): 0119589857044 Comment: - S/P TAVR in May 2016 (15) DVT prophylaxis Code(s): GSH4553 - SNOMED Code(s): 257684262 Comment: - Rukhsana (16) Full code status Code(s): Z78.9 - OTHER SPECIFIED HEALTH STATUS SNOMED Code(s): 708444782 Status and Disposition: Inpatient. Discharge to home when medically stable. Attending: Alexis David
[2017-06-13] MEDS: hydrALAZINE IV* 20 MG/ML VIAL IV SLOW PU PRN ×2 (13:35→22:07)
[2017-06-13] MEDS: Metoprolol Tartrate TAB* 25 MG PO SCH (21:03)
[2017-06-13] MEDS: diPHENhydraMINE PO* 25 MG PO SCH (21:03)
[2017-06-14] MEDS: oxyCODONE TAB* 5 MG TAB PO PRN ×4 (02:44→18:41)
[2017-06-14] MEDS: Omeprazole CAP* 20 MG PO SCH (06:11)
[2017-06-14] MEDS: Cinacalcet TAB* 30 MG PO SCH (07:49)
[2017-06-14] MEDS: Docusate CAP* 100 MG PO SCH ×2 (07:50→20:46)
[2017-06-14] MEDS: cloNIDine TAB* 0.1 MG PO SCH ×2 (07:50→20:46)
[2017-06-14] MEDS: Metoprolol Tartrate TAB* 25 MG PO SCH ×2 (07:51→20:46)
[2017-06-14] MEDS: Apixaban* 5 MG TAB PO SCH ×2 (07:53→20:46)
[2017-06-14] MEDS: Sevelamer TAB* 800 MG PO SCH ×3 (07:53→17:03)
[2017-06-14] MEDS: Montelukast Sodium TAB* 10 MG PO SCH (07:54)
[2017-06-14] MEDS: Labetalol TAB* 200 MG PO SCH ×2 (07:54→20:46)
[2017-06-14] MEDS: Diltiazem CD CAP* 180 MG PO SCH (07:55)
[2017-06-14] MEDS: Diltiazem CD CAP* 120 MG PO SCH (07:55)
[2017-06-14] MEDS: Aspirin EC Low Dose* 81 MG TAB.EC PO SCH (07:55)
[2017-06-14] MEDS: Benzonatate CAP* 100 MG PO SCH ×2 (07:55→17:03)
[2017-06-14] MEDS: Sertraline* 25 MG TAB PO SCH (07:55)
[2017-06-14] MEDS: methylPREDNISolone SOD 40 MG* 1 ML VIAL IV SCH ×2 (07:57→17:03)
[2017-06-14] MEDS: Sodium Polystyrene ORAL.SOL* 15 GM/60 ML BTL PO SCH (08:02)
[2017-06-14] MEDS ORDERED: Potassium Chlor TAB* 20 MEQ TAB.ER PO ONE (08:22)
[2017-06-14] MEDS ORDERED: diPHENhydraMINE PO* 25 MG PO PRN (08:23)
[2017-06-14] MEDS ORDERED: Sodium Polystyrene ORAL.SOL* 15 GM/60 ML BTL PO PRN (08:24)
--- NOTE | 2017-06-14 08:28 | PN ---
Subjective Date of Service: 06/14/17 Interval History: Patient seen and examined at bedside. Denies N/V/D. Pt states that she feels intermittently warm and cold, continues to have chest discomfort, right upper quadrant pain, and cough. Headache has resolved since Nitro drip was stopped. Tele: Afib, rate 70-80's. Family History: Unchanged from Admission Social History: Unchanged from Admission Past Medical History: Unchanged from Admission Objective Active Medications: Acetaminophen (Tylenol Tab*) 650 mg PO Q6H PRN Reason: FEVER/PAIN Albuterol (Ventolin 2.5 Mg/3 Ml Neb.Tonya*) 2.5 mg INH Q2H PRN Reason: SOB/ WHEEZING Alprazolam (Xanax Tab*) 0.25 mg PO TID PRN Reason: ANXIETY Apixaban (Eliquis*) 5 mg PO BID [facility] Aspirin (Aspirin Ec Low Dose*) 81 mg PO DAILY [facility] Benzonatate (Tessalon Cap*) 100 mg PO Q8H [facility] Cinacalcet (Sensipar Tab*) 90 mg PO DAILY [facility] Clonidine HCl (Catapres Tab*) 0.3 mg PO BID [facility] Diltiazem HCl (Cardizem Cd Cap*) 120 mg PO DAILY [facility] Diltiazem HCl (Cardizem Cd Cap*) 180 mg PO DAILY [facility] Diphenhydramine HCl (Benadryl Po*) 25 mg PO BEDTIME [facility] Docusate Sodium (Colace Cap*) 200 mg PO BID [facility] Guaifenesin/Codeine Phosphate (Robitussin Ac 100mg-10mg*) 5 ml PO Q4H PRN Reason: COUGH Hydralazine HCl (Apresoline Iv*) 10 mg IV SLOW PU Q6H PRN Reason: SYSTOLIC BP GREATER THAN: 180 or Diastolic BP greater than 110 Levofloxacin/Dextrose (Levaquin 500 Mg Ivpremix(*)) 500 mg in 100 mls @ 100 mls /hr IVPB Q48H [facility] Nitroglycerin/Dextrose (Nitroglycerin Drip*) 25,000 mcg in 250 mls @ 0 mls/hr IV .(Initial Rate) [facility]; Per Protocol Labetalol HCl (Trandate Tab*) 200 mg PO BID [facility] Melatonin (Melatonin (Nf)) 3 mg PO BEDTIME PRN; Protocol Reason: Sleep Methylprednisolone Sodium Succinate (Solu-Medrol 40 Mg) 40 mg IV Q8H [facility] Metoprolol Tartrate (Lopressor Tab*) 100 mg PO BID [facility] Mometasone Furoate/Formoterol Fumar (Dulera 200/5 Mdi*) 2 puff INH BID [facility] Montelukast Sodium (Singulair Tab*) 10 mg PO DAILY [facility] Omeprazole (Prilosec Cap*) 20 mg PO DAILY@0600 [facility] Ondansetron HCl (Zofran Inj*) 4 mg IV Q6H PRN Reason: NAUSEA Oxycodone HCl (Roxycodone Tab*) 15 mg PO Q4H PRN Reason: PAIN Polyethylene Glycol/Electrolytes (Miralax*) 17 gm PO DAILY PRN Reason: CONSTIPATION Sertraline HCl (Zoloft*) 25 mg PO DAILY [facility] Sevelamer Carbonate (Renvela Tab*) 4,000 mg PO TID WITH MEALS [facility] Sodium Polystyrene Sulfonate (Kayexalate Oral.Tonya*) 15 gm PO DAILY [facility] Tiotropium [place] (Spiriva Cap.Inh*) 1 cap INH DAILY [facility] Vital Signs - 8 hr 06/14/17 06/14/17 06/14/17 00:30 00:45 01:00 Temperature Pulse Rate 77 78 83 Respiratory 19 17 22 Rate Blood Pressure 136/91 137/85 129/86 (mmHg) O2 Sat by Pulse 99 99 98 Oximetry 06/14/17 06/14/17 06/14/17 01:30 02:00 02:30 Temperature Pulse Rate 73 75 72 Respiratory 26 16 15 Rate Blood Pressure 153/109 154/98 129/82 (mmHg) O2 Sat by Pulse 100 100 99 Oximetry 06/14/17 06/14/17 06/14/17 03:00 03:01 03:30 Temperature Pulse Rate 82 79 72 Respiratory 18 13 21 Rate Blood Pressure 153/95 143/90 (mmHg) O2 Sat by Pulse 95 97 100 Oximetry 06/14/17 06/14/17 06/14/17 04:00 04:30 05:00 Temperature 97.2 F Pulse Rate 64 63 66 Respiratory 14 13 21 Rate Blood Pressure 132/85 120/80 132/93 (mmHg) O2 Sat by Pulse 98 98 99 Oximetry 06/14/17 06/14/17 06/14/17 05:30 06:00 06:30 Temperature Pulse Rate 84 70 71 Respiratory 18 17 17 Rate Blood Pressure 161/117 161/102 158/101 (mmHg) O2 Sat by Pulse 100 100 100 Oximetry 06/14/17 06/14/17 06/14/17 07:00 07:30 08:00 Temperature Pulse Rate 68 69 80 Respiratory 17 17 17 Rate Blood Pressure 141/84 161/101 136/104 (mmHg) O2 Sat by Pulse 99 100 95 Oximetry Oxygen Devices in Use Now: None, BiPAP Appearance: NAD, laying in bed Ears/Nose/Mouth/Throat: Mucous Membranes Moist Respiratory: Symmetrical Chest Expansion and Respiratory Effort, Clear to Auscultation Cardiovascular: NL Sounds; No Murmurs; No JVD, - - Heart Rate irregular Extremities: - - Trace generalized edema Skin: No Rash or Ulcers, - - Dry skin Neurological: Alert and Oriented x 3, NL Muscle Strength and Tone Lines/Tubes/Other Access: Clean, Dry and Intact Peripheral IV - site benign Nutrition: Taking PO's Result Diagrams: 06/13/17 05:37 06/13/17 05:37 Assess/Plan/Problems-Billing Assessment: Ms. Joseph is a 46 yo female with PMH significant for ESRD on HD, hx DVT/PE, s/p TAVR, superior vena cava syndrome, COPD, CAD, [place], Afib, chronic diastolic HF, HLD, HTN, anemia and afib who presented to the emergency room with complaints of cough, chest discomfort, and fevers. - Patient Problems (1) Pneumonia Code(s): J18.9 - PNEUMONIA, UNSPECIFIED ORGANISM SNOMED Code(s): 115874813 Comment: - Right lower lobe - Afebrile and no leukocytosis - Blood cultures, no growth day 1 - Urine for legionella and S. Peumo pending - Sputum culture pending - Continue Levaquin (Pt has a PCN and Cephalosporin allergy) (2) Hypertensive urgency Code(s): I16.0 - HYPERTENSIVE URGENCY SNOMED Code(s): 187742678 Comment: - Improving - Continue clonidine, labetalol, diltiazem, metoprolol (increased to 100 mg BID ) and hydralazine PRN (3) Chest pain Code(s): R07.9 - CHEST PAIN, UNSPECIFIED SNOMED Code(s): 77010141 Comment: - Chronic - Pain is reproducible with palpation - Suspect a neuritic vs musculoskeletal pain from cough - Elevated troponin, peaked at 0.13. Suspect seconday to demand ischemia and ESRD (4) COPD exacerbation Code(s): J44.1 - CHRONIC OBSTRUCTIVE PULMONARY DISEASE W (ACUTE) EXACERBATION SNOMED Code(s): 348475771347488 Comment: - Acute complaints of CP and cough - Cough when lying down is related likely to fluid retention in this pt on HD. Offered codeine as a cough suppressant and semirecumbent position when sleeping - Continue corticosteroids, inhaled therapies, Robitussin AC, and benzonatate (5) Abdominal pain Code(s): R10.9 - UNSPECIFIED ABDOMINAL PAIN SNOMED Code(s): 32422178 Comment: - No acute findings on CT - Suspect secondary to coughing and muscular pain (6) End stage renal disease on dialysis Code(s): N18.6 - END STAGE RENAL DISEASE; Z99.2 - DEPENDENCE ON RENAL DIALYSIS SNOMED Code(s): 677428796 Comment: - Continue dialysis as scheduled - Received dialysis last 06/13 (7) Anemia Code(s): D64.9 - ANEMIA, UNSPECIFIED SNOMED Code(s): 954693811 Comment: - H/H essentially at baseline. - Secondary to ESRD - Continue to follow intermittently. (8) HTN (hypertension) Code(s): I10 - ESSENTIAL (PRIMARY) HYPERTENSION SNOMED Code(s): 25916913 Comment: - Improving - Continue clonidine, labetalol, diltiazem, metoprolol (increased to 100 mg BID ) and hydralazine PRN (9) Atrial fibrillation Code(s): I48.91 - UNSPECIFIED ATRIAL FIBRILLATION SNOMED Code(s): 91820344 Comment: - HR better controlled today - Continue diltiazem, metoprolol, labetolol and eliquis. (10) Congestive heart failure Code(s): I50.9 - HEART FAILURE, UNSPECIFIED SNOMED Code(s): 92404732 Comment: - Suspect acute on chronic exacerbation - Patient with history of combined systolic and diastolic HF - S/P dialysis 06/13 - Continue daily weights, strict I/O, volume restriction (11) History of DVT (deep vein thrombosis) Code(s): Z86.718 - PERSONAL HISTORY OF OTHER VENOUS THROMBOSIS AND EMBOLISM SNOMED Code(s): 796009353 Comment: - Also with hx of PE and superior vena cava syndrome - Continue home apixaban. (12) History of coronary artery disease Code(s): Z86.79 - PERSONAL HISTORY OF OTHER DISEASES OF THE CIRCULATORY SYSTEM SNOMED Code(s): 542898265 Comment: - Continue ASA and beta clara. (13) MALLORIE (obstructive sleep apnea) Code(s): G47.33 - OBSTRUCTIVE SLEEP APNEA (ADULT) (PEDIATRIC) SNOMED Code(s): 14293002 Comment: - BiPAP at HS (14) S/P AVR (aortic valve replacement) Code(s): Z95.2 - PRESENCE OF PROSTHETIC HEART VALVE SNOMED Code(s): 0266908452086 Comment: - S/P TAVR in May 2016 (15) DVT prophylaxis Code(s): QVM7966 - SNOMED Code(s): 423135480 Comment: - Rukhsana (16) Full code status Code(s): Z78.9 - OTHER SPECIFIED HEALTH STATUS SNOMED Code(s): 535760156 Status and Disposition: Inpatient. Discharge to home when medically stable.
[2017-06-14] MEDS: Mometasone/Formoter 200/5 MDI INH SCH ×2 (08:47→19:26)
[2017-06-14] MEDS: Tiotropium CAP.INH* CAP.INH/18 MCG (USE ORDER SET !) INH SCH (08:47)
[2017-06-14] MEDS: Ondansetron INJ* 2 MG/ML VIAL IV PRN (11:45)
[2017-06-14] MEDS: Morphine INJ* 2 MG/ML 1 ML SYRINGE (TWO MG - NEW SYRINGE VERSION) IV PRN ×2 (13:06→19:43)
[2017-06-14] MEDS: ALPRAZolam TAB* 0.25 MG PO PRN ×2 (13:07→19:42)
[2017-06-14] MEDS: diPHENhydraMINE PO* 25 MG PO SCH (20:46)
[2017-06-14] MEDS ORDERED: Levofloxacin 500 MG IVPREMIX(* 500 MG/100 ML BAG IVPB SCH (21:00)
[2017-06-15] MEDS: methylPREDNISolone SOD 40 MG* 1 ML VIAL IV SCH ×2 (00:17→08:46)
[2017-06-15] MEDS: Benzonatate CAP* 100 MG PO SCH ×2 (00:17→08:45)
[2017-06-15] MEDS: oxyCODONE TAB* 5 MG TAB PO PRN ×3 (00:17→17:14)
[2017-06-15] MEDS: Morphine INJ* 2 MG/ML 1 ML SYRINGE (TWO MG - NEW SYRINGE VERSION) IV PRN ×4 (02:19→21:15)
[2017-06-15] MEDS: Omeprazole CAP* 20 MG PO SCH (06:02)
[2017-06-15 06:18] LABS: ABS Basophils 0 10^3/ul (0-0.2); ABS Eosinophils 0 10^3/ul (0-0.6); ABS Lymphocytes 0.4 10^3/ul (1.0-4.8); ABS Monocytes 0.3 10^3/ul (0-0.8); ABS Neutrophils 6.4 10^3/ul (1.5-7.7); ABS Nucleated RBC 0 10^3/ul; Eosinophil % 0 % (0-6); Hematocrit 24 % (35-47); Mean Corpuscular HGB Conc 33 g/dl (31-36); Mean Corpuscular Hemoglobin 34 pg (27-31); Mean Corpuscular Volume 105 fL (80-97); Mean Platelet Volume 9 um3 (7.4-10.4); Nucleated Red Blood Cells % 0.2; Platelet Count 172 10^3/ul (150-450); Red Blood Count 2.32 10^6/ul (4.0-5.4); Red Cell Distribution Width 17 % (10.5-15); White Blood Count 7.1 10^3/ul (3.5-10.8)
[2017-06-15 06:28] LABS: EGFR Non-African American 6.8 (>60)
[2017-06-15] MEDS: Tiotropium CAP.INH* CAP.INH/18 MCG (USE ORDER SET !) INH SCH (07:36)
[2017-06-15] MEDS: Mometasone/Formoter 200/5 MDI INH SCH ×2 (07:36→19:41)
[2017-06-15] MEDS: Metoprolol Tartrate TAB* 25 MG PO SCH ×2 (08:41→21:14)
[2017-06-15] MEDS: Aspirin EC Low Dose* 81 MG TAB.EC PO SCH (08:42)
[2017-06-15] MEDS: Sevelamer TAB* 800 MG PO SCH ×3 (08:42→17:13)
[2017-06-15] MEDS: Cinacalcet TAB* 30 MG PO SCH (08:42)
[2017-06-15] MEDS: cloNIDine TAB* 0.1 MG PO SCH ×2 (08:43→21:14)
[2017-06-15] MEDS: Apixaban* 5 MG TAB PO SCH ×2 (08:43→21:14)
[2017-06-15] MEDS: Labetalol TAB* 200 MG PO SCH ×2 (08:43→21:14)
[2017-06-15] MEDS: Montelukast Sodium TAB* 10 MG PO SCH (08:43)
[2017-06-15] MEDS: Diltiazem CD CAP* 180 MG PO SCH (08:43)
[2017-06-15] MEDS: Docusate CAP* 100 MG PO SCH ×2 (08:44→21:15)
[2017-06-15] MEDS: Sertraline* 25 MG TAB PO SCH (08:45)
[2017-06-15] MEDS: Diltiazem CD CAP* 120 MG PO SCH (08:45)
--- NOTE | 2017-06-15 09:36 | PN ---
Subjective Date of Service: 06/15/17 Interval History: Patient seen and examined at bedside. Denies fever, chills, N/V/D. Juany reports that her shortness of breath is improving, but she continues to have chest discomfort and it hurts to take a big breath. She continues to report right upper abd pain that is improving. She reports itching all over, that isn' t her "skin but inside". She is requesting something to help her sleep. Had a very long discussion about palliative care services and she is very interested in speaking with someone. Tele: Afib/flutter, rate 70-90's Family History: Unchanged from Admission Social History: Unchanged from Admission Past Medical History: Unchanged from Admission Objective Active Medications: Acetaminophen (Tylenol Tab*) 650 mg PO Q6H PRN Reason: FEVER/PAIN Albuterol (Ventolin 2.5 Mg/3 Ml Neb.Tonya*) 2.5 mg INH Q2H PRN Reason: SOB/ WHEEZING Alprazolam (Xanax Tab*) 0.25 mg PO TID PRN Reason: ANXIETY Apixaban (Eliquis*) 5 mg PO BID [facility] Aspirin (Aspirin Ec Low Dose*) 81 mg PO DAILY [facility] Benzonatate (Tessalon Cap*) 100 mg PO Q8H [facility] Cinacalcet (Sensipar Tab*) 90 mg PO DAILY [facility] Clonidine HCl (Catapres Tab*) 0.3 mg PO BID [facility] Diltiazem HCl (Cardizem Cd Cap*) 120 mg PO DAILY [facility] Diltiazem HCl (Cardizem Cd Cap*) 180 mg PO DAILY [facility] Diphenhydramine HCl (Benadryl Po*) 25 mg PO BEDTIME [facility] Diphenhydramine HCl (Benadryl Po*) 25 mg PO Q6H PRN Reason: ITCHING Docusate Sodium (Colace Cap*) 200 mg PO BID [facility] Guaifenesin/Codeine Phosphate (Robitussin Ac 100mg-10mg*) 5 ml PO Q4H PRN Reason: COUGH Hydralazine HCl (Apresoline Iv*) 10 mg IV SLOW PU Q6H PRN Reason: SYSTOLIC BP GREATER THAN: Levofloxacin/Dextrose (Levaquin 500 Mg Ivpremix(*)) 500 mg in 100 mls @ 100 mls /hr IVPB Q48H [facility] Nitroglycerin/Dextrose (Nitroglycerin Drip*) 25,000 mcg in 250 mls @ 0 mls/hr IV .(Initial Rate) [facility]; Per Protocol Reason: Protocol Labetalol HCl (Trandate Tab*) 200 mg PO BID [facility] Melatonin (Melatonin (Nf)) 3 mg PO BEDTIME PRN; Protocol Reason: Sleep Methylprednisolone Sodium Succinate (Solu-Medrol 40 Mg) 40 mg IV Q8H [facility] Metoprolol Tartrate (Lopressor Tab*) 100 mg PO BID [facility] Mometasone Furoate/Formoterol Fumar (Dulera 200/5 Mdi*) 2 puff INH BID [facility] Montelukast Sodium (Singulair Tab*) 10 mg PO DAILY [facility] Morphine Sulfate (Morphine Inj (Syringe)*) 2 mg IV Q6H PRN Reason: PAIN - UNCONTROLLED Omeprazole (Prilosec Cap*) 20 mg PO DAILY@0600 [facility] Ondansetron HCl (Zofran Inj*) 4 mg IV Q6H PRN Reason: NAUSEA Oxycodone HCl (Roxycodone Tab*) 15 mg PO Q4H PRN Reason: PAIN Polyethylene Glycol/Electrolytes (Miralax*) 17 gm PO DAILY PRN Reason: CONSTIPATION Sertraline HCl (Zoloft*) 25 mg PO DAILY [facility] Sevelamer Carbonate (Renvela Tab*) 4,000 mg PO TID WITH MEALS [facility] Sodium Polystyrene Sulfonate (Kayexalate Oral.Tonya*) 15 gm PO DAILY PRN Reason: Hyperkalemia Tiotropium [place] (Spiriva Cap.Inh*) 1 cap INH DAILY [facility] Vital Signs - 8 hr 06/15/17 06/15/17 06/15/17 02:19 03:45 04:07 Temperature 97.8 F Pulse Rate 76 Respiratory 18 20 20 Rate Blood Pressure 152/97 (mmHg) O2 Sat by Pulse 100 Oximetry 06/15/17 06/15/17 06/15/17 06:02 08:16 08:45 Temperature Pulse Rate Respiratory 18 16 Rate Blood Pressure (mmHg) O2 Sat by Pulse 98 Oximetry 06/15/17 08:46 Temperature Pulse Rate Respiratory 16 Rate Blood Pressure (mmHg) O2 Sat by Pulse Oximetry Oxygen Devices in Use Now: Nasal Cannula - 2-3L Appearance: NAD, sitting up on the side of the bed Ears/Nose/Mouth/Throat: Mucous Membranes Moist Respiratory: Symmetrical Chest Expansion and Respiratory Effort, Clear to Auscultation Cardiovascular: NL Sounds; No Murmurs; No JVD, RRR Abdominal: - - Bowel sounds present, mild tenderness with palpation to right upper abd, non distended Skin: - - Multiple areas of scabbing from scratching Neurological: Alert and Oriented x 3, NL Muscle Strength and Tone Lines/Tubes/Other Access: Clean, Dry and Intact Peripheral IV - site benign Nutrition: Taking PO's Result Diagrams: 06/15/17 05:56 06/15/17 05:56 Assess/Plan/Problems-Billing Assessment: Ms. Joseph is a 46 yo female with PMH significant for ESRD on HD, hx DVT/PE, s/p TAVR, superior vena cava syndrome, COPD, CAD, [place], Afib, chronic diastolic HF, HLD, HTN, anemia and afib who presented to the emergency room with complaints of cough, chest discomfort, and fevers. - Patient Problems (1) Pneumonia Code(s): J18.9 - PNEUMONIA, UNSPECIFIED ORGANISM SNOMED Code(s): 078986576 Comment: - Right lower lobe - Afebrile and no leukocytosis - Blood cultures, no growth day 2 - Urine for legionella and S. Peumo pending - Sputum culture pending - Continue Levaquin (Pt has a PCN and Cephalosporin allergy) (2) Hypertensive urgency Code(s): I16.0 - HYPERTENSIVE URGENCY SNOMED Code(s): 079834463 Comment: - Resolved - Continue clonidine, labetalol, diltiazem, metoprolol (increased to 100 mg BID ) and hydralazine PRN (3) Chest pain Code(s): R07.9 - CHEST PAIN, UNSPECIFIED SNOMED Code(s): 28216032 Comment: - Chronic - Pain is reproducible with palpation - Suspect a neuritic vs musculoskeletal pain from cough - Elevated troponin, peaked at 0.13. Suspect seconday to demand ischemia and ESRD (4) COPD exacerbation Code(s): J44.1 - CHRONIC OBSTRUCTIVE PULMONARY DISEASE W (ACUTE) EXACERBATION SNOMED Code(s): 728793189510851 Comment: - Acute complaints of CP and cough - Cough when lying down is related likely to fluid retention in this pt on HD. - Continue corticosteroids (change to PO in the AM), inhaled therapies, and Mucinex (5) Uremic pruritus Code(s): L29.9 - PRURITUS, UNSPECIFIED SNOMED Code(s): 278079433 Comment: - Will try hydroxyzine PRN (6) Hyponatremia Code(s): E87.1 - HYPO-OSMOLALITY AND HYPONATREMIA SNOMED Code(s): 63000111 Comment: - Suspect hypervolemic hyponamtremia - c/w dialysis (7) Abdominal pain Code(s): R10.9 - UNSPECIFIED ABDOMINAL PAIN SNOMED Code(s): 09663494 Comment: - No acute findings on CT - Suspect secondary to coughing and muscular pain (8) End stage renal disease on dialysis Code(s): N18.6 - END STAGE RENAL DISEASE; Z99.2 - DEPENDENCE ON RENAL DIALYSIS SNOMED Code(s): 554278346 Comment: - Continue dialysis as scheduled - Received dialysis last 06/13 (9) Anemia Code(s): D64.9 - ANEMIA, UNSPECIFIED SNOMED Code(s): 981394306 Comment: - H/H essentially at baseline. - Secondary to ESRD - Continue to follow intermittently. (10) HTN (hypertension) Code(s): I10 - ESSENTIAL (PRIMARY) HYPERTENSION SNOMED Code(s): 90057410 Comment: - Improving - Continue clonidine, labetalol, diltiazem, metoprolol (increased to 100 mg BID ) and hydralazine PRN (11) Atrial fibrillation Code(s): I48.91 - UNSPECIFIED ATRIAL FIBRILLATION SNOMED Code(s): 66438524 Comment: - HR better controlled today - Continue diltiazem, metoprolol, labetolol and eliquis. (12) Congestive heart failure Code(s): I50.9 - HEART FAILURE, UNSPECIFIED SNOMED Code(s): 06392756 Comment: - Suspect acute on chronic exacerbation - Patient with history of combined systolic and diastolic HF - S/P dialysis 06/13 - Continue daily weights, strict I/O, volume restriction (13) History of DVT (deep vein thrombosis) Code(s): Z86.718 - PERSONAL HISTORY OF OTHER VENOUS THROMBOSIS AND EMBOLISM SNOMED Code(s): 260487318 Comment: - Also with hx of PE and superior vena cava syndrome - Continue home apixaban. (14) History of coronary artery disease Code(s): Z86.79 - PERSONAL HISTORY OF OTHER DISEASES OF THE CIRCULATORY SYSTEM SNOMED Code(s): 075001660 Comment: - Continue ASA and beta clara. (15) MALLORIE (obstructive sleep apnea) Code(s): G47.33 - OBSTRUCTIVE SLEEP APNEA (ADULT) (PEDIATRIC) SNOMED Code(s): 55147412 Comment: - BiPAP at HS (16) S/P AVR (aortic valve replacement) Code(s): Z95.2 - PRESENCE OF PROSTHETIC HEART VALVE SNOMED Code(s): 4136159871247 Comment: - S/P TAVR in May 2016 (17) DVT prophylaxis Code(s): [id number] - SNOMED Code(s): 349401885 Comment: - Rukhsana (18) Full code status Code(s): Z78.9 - OTHER SPECIFIED HEALTH STATUS SNOMED Code(s): 352882092 Status and Disposition: Inpatient. Discharge to home when medically stable, possibly tomorrow after dialysis.
[2017-06-15] MEDS: guaiFENesin ER TAB 600 MG PO SCH ×2 (12:23→21:15)
[2017-06-15] MEDS: Ondansetron INJ* 2 MG/ML VIAL IV PRN ×2 (12:32→21:15)
[2017-06-15] MEDS: hydrOXYzine HCL TAB* 25 MG PO PRN (21:14)
[2017-06-15] MEDS: ALPRAZolam TAB* 0.25 MG PO PRN (21:15)
[2017-06-16] MEDS: Morphine INJ* 2 MG/ML 1 ML SYRINGE (TWO MG - NEW SYRINGE VERSION) IV PRN (05:15)
[2017-06-16] MEDS: hydrOXYzine HCL TAB* 25 MG PO PRN (05:15)
[2017-06-16] MEDS: ALPRAZolam TAB* 0.25 MG PO PRN (05:16)
[2017-06-16] MEDS: Omeprazole CAP* 20 MG PO SCH (05:16)
[2017-06-16] MEDS: oxyCODONE TAB* 5 MG TAB PO PRN ×3 (05:16→15:17)
[2017-06-16] MEDS ORDERED: guaiFENesin/CODIEN 100MG-10MG* 5 ML UDC PO PRN (05:42)
[2017-06-16] MEDS: Mometasone/Formoter 200/5 MDI INH SCH (08:21)
[2017-06-16] MEDS: Tiotropium CAP.INH* CAP.INH/18 MCG (USE ORDER SET !) INH SCH (08:21)
[2017-06-16] MEDS: Sevelamer TAB* 800 MG PO SCH ×2 (08:32→13:42)
[2017-06-16] MEDS: Aspirin EC Low Dose* 81 MG TAB.EC PO SCH (08:33)
[2017-06-16] MEDS: Apixaban* 5 MG TAB PO SCH (08:33)
[2017-06-16] MEDS: Montelukast Sodium TAB* 10 MG PO SCH (08:33)
[2017-06-16] MEDS: cloNIDine TAB* 0.1 MG PO SCH (08:33)
[2017-06-16] MEDS: Diltiazem CD CAP* 180 MG PO SCH (08:34)
[2017-06-16] MEDS: Labetalol TAB* 200 MG PO SCH (08:34)
[2017-06-16] MEDS: guaiFENesin ER TAB 600 MG PO SCH (08:34)
[2017-06-16] MEDS: Docusate CAP* 100 MG PO SCH (08:34)
[2017-06-16] MEDS: Diltiazem CD CAP* 120 MG PO SCH (08:34)
[2017-06-16] MEDS: Metoprolol Tartrate TAB* 25 MG PO SCH (08:34)
[2017-06-16] MEDS: Sertraline* 25 MG TAB PO SCH (08:34)
[2017-06-16] MEDS ORDERED: predniSONE TAB* 50 MG PO SCH (09:00)
[2017-06-16] MEDS: Cinacalcet TAB* 30 MG PO SCH (10:17)
[2017-06-16] MEDS ORDERED: Epoetin Alfa* 10,000 UNITS/ML VIAL IV ONE (12:00)
[2017-06-16] MEDS ORDERED: Heparin DIALYSIS ONLY(*) 1,000 UNITS/ML VIAL DIALYSIS ONE (12:00)
--- NOTE | 2017-06-16 13:04 | PN ---
Subjective Date of Service: 06/16/17 Interval History: Patient seen and examined at bedside in the dialysis room. Denies fever, chills , N/V/D. Juany reports that her right upper abd pain, chest pain and shortness of breath continue to improve. She states that the melatonin helped her sleep well last night. She states that the hydroxyzine is helping with the itching. Tele: Afib/flutter, rate 60-80's. Occasional 50's and 2 ~ 2 second pauses noted. Family History: Unchanged from Admission Social History: Unchanged from Admission Past Medical History: Unchanged from Admission Objective Active Medications: Acetaminophen (Tylenol Tab*) 650 mg PO Q6H PRN Reason: FEVER/PAIN Albuterol (Ventolin 2.5 Mg/3 Ml Neb.Tonya*) 2.5 mg INH Q2H PRN Reason: SOB/ WHEEZING Alprazolam (Xanax Tab*) 0.25 mg PO TID PRN Reason: ANXIETY Apixaban (Eliquis*) 5 mg PO BID [facility] Aspirin (Aspirin Ec Low Dose*) 81 mg PO DAILY [facility] Cinacalcet (Sensipar Tab*) 90 mg PO DAILY [facility] Clonidine HCl (Catapres Tab*) 0.3 mg PO BID [facility] Diltiazem HCl (Cardizem Cd Cap*) 120 mg PO DAILY [facility] Diltiazem HCl (Cardizem Cd Cap*) 180 mg PO DAILY [facility] Docusate Sodium (Colace Cap*) 200 mg PO BID [facility] Guaifenesin (Mucinex*) 1,200 mg PO BID [facility] Guaifenesin/Codeine Phosphate (Robitussin Ac 100mg-10mg*) 5 ml PO Q4H PRN Reason: COUGH Hydralazine HCl (Apresoline Iv*) 10 mg IV SLOW PU Q6H PRN Reason: SYSTOLIC BP GREATER THAN: Hydroxyzine HCl (Atarax Tab*) 25 mg PO Q6H PRN Reason: Itching Levofloxacin/Dextrose (Levaquin 500 Mg Ivpremix(*)) 500 mg in 100 mls @ 100 mls /hr IVPB Q48H [facility] Labetalol HCl (Trandate Tab*) 200 mg PO BID [facility] Melatonin (Melatonin (Nf)) 3 mg PO BEDTIME PRN; Protocol Reason: Sleep Metoprolol Tartrate (Lopressor Tab*) 100 mg PO BID [facility] Mometasone Furoate/Formoterol Fumar (Dulera 200/5 Mdi*) 2 puff INH BID [facility] Montelukast Sodium (Singulair Tab*) 10 mg PO DAILY [facility] Morphine Sulfate (Morphine Inj (Syringe)*) 2 mg IV Q6H PRN Reason: PAIN - UNCONTROLLED Omeprazole (Prilosec Cap*) 20 mg PO DAILY@0600 [facility] Ondansetron HCl (Zofran Inj*) 4 mg IV Q6H PRN Reason: NAUSEA Oxycodone HCl (Roxycodone Tab*) 15 mg PO Q4H PRN Reason: PAIN Polyethylene Glycol/Electrolytes (Miralax*) 17 gm PO DAILY PRN Reason: CONSTIPATION Prednisone (Deltasone Tab*) 50 mg PO DAILY [facility] Sertraline HCl (Zoloft*) 25 mg PO DAILY [facility] Sevelamer Carbonate (Renvela Tab*) 4,000 mg PO TID WITH MEALS [facility] Sodium Polystyrene Sulfonate (Kayexalate Oral.Tonya*) 15 gm PO DAILY PRN Reason: Hyperkalemia Tiotropium Bruno (Spiriva Cap.Inh*) 1 cap INH DAILY [facility] Vital Signs - 8 hr 06/16/17 06/16/17 06/16/17 05:15 05:16 06:11 Temperature Pulse Rate Respiratory 20 20 18 Rate Blood Pressure (mmHg) O2 Sat by Pulse Oximetry 06/16/17 06/16/17 06/16/17 07:29 08:00 08:30 Temperature 97.9 F Pulse Rate 55 Respiratory 18 18 18 Rate Blood Pressure 142/89 (mmHg) O2 Sat by Pulse 100 Oximetry 06/16/17 06/16/17 10:16 12:11 Temperature Pulse Rate 85 Respiratory 18 16 Rate Blood Pressure (mmHg) O2 Sat by Pulse 98 Oximetry Oxygen Devices in Use Now: Nasal Cannula - 2L Appearance: NAD, sitting in chair Ears/Nose/Mouth/Throat: Mucous Membranes Moist Respiratory: Symmetrical Chest Expansion and Respiratory Effort, Clear to Auscultation Cardiovascular: NL Sounds; No Murmurs; No JVD, - - Heart rate irregular Abdominal: NL Sounds; No Tenderness; No Distention Extremities: - - Trace bilateral LE edema Neurological: Alert and Oriented x 3, NL Muscle Strength and Tone Lines/Tubes/Other Access: Clean, Dry and Intact Peripheral IV - site benign Nutrition: Taking PO's Result Diagrams: 06/15/17 05:56 06/16/17 04:52 Microbiology and Other Data: Microbiology 06/15/17 10:15 Legionella Urinary Antigen - Final Urine Negative Legionella Streptococcus pneumoniae Ag Screen - Final Negative S. pneumo Antigen Assess/Plan/Problems-Billing Assessment: Ms. Joseph is a 46 yo female with PMH significant for ESRD on HD, hx DVT/PE, s/p TAVR, superior vena cava syndrome, COPD, CAD, VA, Afib, chronic diastolic HF, HLD, HTN, anemia and afib who presented to the emergency room with complaints of cough, chest discomfort, and fevers. - Patient Problems (1) Pneumonia Code(s): J18.9 - PNEUMONIA, UNSPECIFIED ORGANISM SNOMED Code(s): 082929891 Comment: - Right lower lobe - Afebrile and no leukocytosis - Blood cultures, no growth day 2 - Urine for legionella and S. Peumo antigens negative - Sputum culture pending - Continue Levaquin (Pt has a PCN and Cephalosporin allergy), change to PO (2) Hypertensive urgency Code(s): I16.0 - HYPERTENSIVE URGENCY SNOMED Code(s): 236354733 Comment: - Resolved - Continue clonidine, labetalol, diltiazem, metoprolol (increased to 100 mg BID ) and hydralazine PRN (3) Chest pain Code(s): R07.9 - CHEST PAIN, UNSPECIFIED SNOMED Code(s): 65757928 Comment: - Chronic - Pain is reproducible with palpation - Suspect a neuritic vs musculoskeletal pain from cough - Elevated troponin, peaked at 0.13. Suspect seconday to demand ischemia and ESRD (4) COPD exacerbation Code(s): J44.1 - CHRONIC OBSTRUCTIVE PULMONARY DISEASE W (ACUTE) EXACERBATION SNOMED Code(s): 192566395287115 Comment: - Acute complaints of CP and cough - Cough when lying down is related likely to fluid retention in this pt on HD. - Continue corticosteroids, inhaled therapies, and Mucinex (5) Uremic pruritus Code(s): L29.9 - PRURITUS, UNSPECIFIED SNOMED Code(s): 899094008 Comment: - Continue hydroxyzine PRN (6) Hyponatremia Code(s): E87.1 - HYPO-OSMOLALITY AND HYPONATREMIA SNOMED Code(s): 23782673 Comment: - Suspect hypervolemic hyponamtremia - c/w dialysis (7) Abdominal pain Code(s): R10.9 - UNSPECIFIED ABDOMINAL PAIN SNOMED Code(s): 64960680 Comment: - No acute findings on CT - Suspect secondary to coughing and muscular pain (8) End stage renal disease on dialysis Code(s): N18.6 - END STAGE RENAL DISEASE; Z99.2 - DEPENDENCE ON RENAL DIALYSIS SNOMED Code(s): 089354570 Comment: - Continue dialysis as scheduled - Received dialysis last 06/13 (9) Anemia Code(s): D64.9 - ANEMIA, UNSPECIFIED SNOMED Code(s): 124628723 Comment: - H/H essentially at baseline. - Secondary to ESRD - Continue to follow intermittently. (10) HTN (hypertension) Code(s): I10 - ESSENTIAL (PRIMARY) HYPERTENSION SNOMED Code(s): 73356954 Comment: - Normotensive - Continue clonidine, labetalol, diltiazem, metoprolol (increased to 100 mg BID ) (11) Atrial fibrillation Code(s): I48.91 - UNSPECIFIED ATRIAL FIBRILLATION SNOMED Code(s): 27654866 Comment: - HR controlled today - Continue diltiazem, metoprolol, labetolol and eliquis. (12) Congestive heart failure Code(s): I50.9 - HEART FAILURE, UNSPECIFIED SNOMED Code(s): 37422887 Comment: - Suspect acute on chronic exacerbation - Patient with history of combined systolic and diastolic HF - S/P dialysis 06/13 - Continue daily weights, strict I/O, volume restriction (13) History of DVT (deep vein thrombosis) Code(s): Z86.718 - PERSONAL HISTORY OF OTHER VENOUS THROMBOSIS AND EMBOLISM SNOMED Code(s): 805834526 Comment: - Also with hx of PE and superior vena cava syndrome - Continue home apixaban. (14) History of coronary artery disease Code(s): Z86.79 - PERSONAL HISTORY OF OTHER DISEASES OF THE CIRCULATORY SYSTEM SNOMED Code(s): 223472331 Comment: - Continue ASA and beta clara. (15) MALLORIE (obstructive sleep apnea) Code(s): G47.33 - OBSTRUCTIVE SLEEP APNEA (ADULT) (PEDIATRIC) SNOMED Code(s): 57246736 Comment: - BiPAP at HS (16) S/P AVR (aortic valve replacement) Code(s): Z95.2 - PRESENCE OF PROSTHETIC HEART VALVE SNOMED Code(s): 6457579505981 Comment: - S/P TAVR in May 2016 (17) DVT prophylaxis Code(s): FZZ8634 - SNOMED Code(s): 912779305 Comment: - [place] (18) Full code status Code(s): Z78.9 - OTHER SPECIFIED HEALTH STATUS SNOMED Code(s): 418284052 Status and Disposition: Inpatient. Stable for discharge to home today.
--- NOTE | 2017-06-16 14:59 | CONSULT ---
Palliative / Hospice Consult Ordering Provider: Hamida Kay - Subjective Code Status: Full Code Advance Directives Location: No Advance Directives MOLST Part A Completed: No MOLST Part E Completed:: No - History or Present Illness History or Present Illness: I was asked to see this 46 year old woman who has had over 14 recent [facility] admissions for end stage COPD. She also has end stage renal failure and has been on dialysis for 11 years. SHe has cardiac disease. she has been ventilated in the ICU on several occasons. She uses 2 PM O2 at home chronically and CPAP at night. She is interested in palliative care at home to help her better manage her disease so that she will not have the frequency of hospitalizations that we have seen in the past. She goes to [facility] for her primary are but is unable to remember the name of her physician there. We spoke about intubation and ventilation, and although the patient dislikes this immensely, she would not be interested in avoiding it if her lungs were failing. At this point she feels she has survived all of the interventions she has had with good success, and she says she isnot going to , she will persist in her efforts to remain alive as long as possible. Lab Values: Abnormal Lab Results 06/16/17 04:52 Sodium 124 L Potassium 5.4 H Chloride 87 L Carbon Dioxide 25 Anion Gap 12 H BUN 71 H Creatinine 8.56 H Est GFR ( Amer) 6.4 Est GFR (Non-Af Amer) 5.0 BUN/Creatinine Ratio 8.3 Glucose 121 H Calcium 9.8 Laboratory Last Values WBC 7.1 10^3/ul (3.5-10.8) 06/15/17 05:56 RBC 2.32 10^6/ul (4.0-5.4) L 06/15/17 05:56 Hgb 8.0 g/dl (12.0-16.0) L 06/15/17 05:56 Hct 24 % (35-47) L 06/15/17 05:56 MCV 105 fL (80-97) H 06/15/17 05:56 MCH 34 pg (27-31) H 06/15/17 05:56 MCHC 33 g/dl (31-36) 06/15/17 05:56 RDW 17 % (10.5-15) H 06/15/17 05:56 Plt Count 172 10^3/ul (150-450) 06/15/17 05:56 MPV 9 um3 (7.4-10.4) 06/15/17 05:56 Neut % (Auto) 89.7 % (38-83) H 06/15/17 05:56 Lymph % (Auto) 5.0 % (25-47) L 06/15/17 05:56 [place] % (Auto) 4.8 % (1-9) 06/15/17 05:56 Eos % (Auto) 0 % (0-6) 06/15/17 05:56 Baso % (Auto) 0.5 % (0-2) 06/15/17 05:56 Absolute Neuts (auto) 6.4 10^3/ul (1.5-7.7) 06/15/17 05:56 Absolute Lymphs (auto) 0.4 10^3/ul (1.0-4.8) L 06/15/17 05:56 Absolute Monos (auto) 0.3 10^3/ul (0-0.8) 06/15/17 05:56 Absolute Eos (auto) 0 10^3/ul (0-0.6) 06/15/17 05:56 Absolute Basos (auto) 0 10^3/ul (0-0.2) 06/15/17 05:56 Absolute Nucleated RBC 0 10^3/ul 06/15/17 05:56 Nucleated RBC % 0.2 06/15/17 05:56 INR (Anticoag Therapy) 1.02 (0.77-1.02) 06/12/17 22:00 APTT 33.2 seconds (26.0-36.3) 06/12/17 22:00 Patient Temperature Not Reportable 06/12/17 23:14 ABG pH 7.59 (7.35-7.45) H 06/12/17 23:14 ABG pH (Temp Correct) Not Reportable 06/12/17 23:14 ABG pCO2 40 mmHg (35-45) 06/12/17 23:14 ABG pCO2 (Temp Corrct Not Reportable 06/12/17 23:14 ABG pO2 155 mmHg (80-100) H 06/12/17 23:14 ABG pO2 (Temp Correct Not Reportable 06/12/17 23:14 ABG HCO3 36.9 mmol/L (19-31) H 06/12/17 23:14 ABG O2 Saturation 99.9 % (95-98) H 06/12/17 23:14 ABG Base Excess 15.3 (-2.0-2.0) H 06/12/17 23:14 Respiration Rate 12 06/12/17 23:14 O2 Delivery Device bipap 06/12/17 23:14 Ventilator Type Not Reportable 06/12/17 23:14 Vent Mode Not Reportable 06/12/17 23:14 FiO2 60 06/12/17 23:14 Inspiratory Time Not Reportable 06/12/17 23:14 PEEP Not Reportable 06/12/17 23:14 Pressure Support Not Reportable 06/12/17 23:14 Pressure Control Not Reportable 06/12/17 23:14 EPAP 5 06/12/17 23:14 IPAP 12 06/12/17 23:14 BiPAP Not Reportable 06/12/17 23:14 Sodium 124 mmol/L (133-145) L 06/16/17 04:52 Potassium 5.4 mmol/L (3.5-5.0) H 06/16/17 04:52 Chloride 87 mmol/L (101-111) L 06/16/17 04:52 Carbon Dioxide 25 mmol/L (22-32) 06/16/17 04:52 Anion Gap 12 mmol/L (2-11) H 06/16/17 04:52 BUN 71 mg/dL (6-24) H 06/16/17 04:52 Creatinine 8.56 mg/dL (0.51-0.95) H 06/16/17 04:52 Est GFR ( Amer) 6.4 (>60) 06/16/17 04:52 Est GFR (Non-Af Amer) 5.0 (>60) 06/16/17 04:52 BUN/Creatinine Ratio 8.3 (8-20) 06/16/17 04:52 Glucose 121 mg/dL (70-100) H 06/16/17 04:52 Lactic Acid 0.7 mmol/L (0.5-2.0) 06/12/17 22:00 Calcium 9.8 mg/dL (8.6-10.3) 06/16/17 04:52 Total Bilirubin 1.00 mg/dL (0.2-1.0) 06/12/17 22:00 AST 26 U/L (13-39) 06/12/17 22:00 ALT 16 U/L (7-52) 06/12/17 22:00 Alkaline Phosphatase 85 U/L (34-104) 06/12/17 22:00 Troponin I 0.12 ng/mL (<0.04) H* 06/13/17 05:37 C-Reactive Protein 10.80 mg/L (< 5.00) H 06/12/17 22:00 B-Natriuretic Peptide 3754 pg/mL (-100) H 06/12/17 22:00 Total Protein 6.5 g/dL (6.4-8.9) 06/12/17 22:00 Albumin 4.0 g/dL (3.2-5.2) 06/12/17 22:00 Globulin 2.5 g/dL (2-4) 06/12/17 22:00 Albumin/Globulin Ratio 1.6 (1-3) 06/12/17 22:00 Influenza A (Rapid) Negative (Negative) 06/12/17 23:38 Influenza B (Rapid) Negative (Negative) 06/12/17 23:38 - Objective Active Medications: Acetaminophen (Tylenol Tab*) 650 mg PO Q6H PRN PRN Reason: FEVER/PAIN Last Admin: 06/13/17 14:47 Dose: 650 mg Albuterol (Ventolin 2.5 Mg/3 Ml Neb.Tonya*) 2.5 mg INH Q2H PRN PRN Reason: SOB/WHEEZING Alprazolam (Xanax Tab*) 0.25 mg PO TID PRN PRN Reason: ANXIETY Last Admin: 06/16/17 05:16 Dose: 0.25 mg Apixaban (Eliquis*) 5 mg PO BID [facility] Last Admin: 06/16/17 08:33 Dose: 5 mg Aspirin (Aspirin Ec Low Dose*) 81 mg PO DAILY [facility] Last Admin: 06/16/17 08:33 Dose: 81 mg Cinacalcet (Sensipar Tab*) 90 mg PO DAILY [facility] Last Admin: 06/16/17 10:17 Dose: 90 mg Clonidine HCl (Catapres Tab*) 0.3 mg PO BID [facility] Last Admin: 06/16/17 08:33 Dose: 0.3 mg Diltiazem HCl (Cardizem Cd Cap*) 120 mg PO DAILY [facility] Last Admin: 06/16/17 08:34 Dose: 120 mg Diltiazem HCl (Cardizem Cd Cap*) 180 mg PO DAILY [facility] Last Admin: 06/16/17 08:34 Dose: 180 mg Docusate Sodium (Colace Cap*) 200 mg PO BID [facility] Last Admin: 06/16/17 08:34 Dose: Not Given Guaifenesin (Mucinex*) 1,200 mg PO BID [facility] Last Admin: 06/16/17 08:34 Dose: 1,200 mg Guaifenesin/Codeine Phosphate (Robitussin Ac 100mg-10mg*) 5 ml PO Q4H PRN PRN Reason: COUGH Last Admin: 06/16/17 06:09 Dose: 5 ml Hydralazine HCl (Apresoline Iv*) 10 mg IV SLOW PU Q6H PRN PRN Reason: SYSTOLIC BP GREATER THAN: Last Admin: 06/13/17 22:07 Dose: 10 mg Hydroxyzine HCl (Atarax Tab*) 25 mg PO Q6H PRN PRN Reason: Itching Last Admin: 06/16/17 05:15 Dose: 25 mg Levofloxacin/Dextrose (Levaquin 500 Mg Ivpremix(*)) 500 mg in 100 mls @ 100 mls /hr IVPB Q48H [facility] Last Admin: 06/14/17 20:47 Dose: 100 mls/hr Labetalol HCl (Trandate Tab*) 200 mg PO BID [facility] Last Admin: 06/16/17 08:34 Dose: 200 mg Melatonin (Melatonin (Nf)) 3 mg PO BEDTIME PRN; Protocol PRN Reason: Sleep Last Admin: 06/15/17 21:14 Dose: 3 mg Metoprolol Tartrate (Lopressor Tab*) 100 mg PO BID [facility] Last Admin: 06/16/17 08:34 Dose: 100 mg Mometasone Furoate/Formoterol Fumar (Dulera 200/5 Mdi*) 2 puff INH BID [facility] Last Admin: 06/16/17 08:21 Dose: 2 puff Montelukast Sodium (Singulair Tab*) 10 mg PO DAILY [facility] Last Admin: 06/16/17 08:33 Dose: 10 mg Morphine Sulfate (Morphine Inj (Syringe)*) 2 mg IV Q6H PRN PRN Reason: PAIN - UNCONTROLLED Last Admin: 06/16/17 05:15 Dose: 2 mg Omeprazole (Prilosec Cap*) 20 mg PO DAILY@0600 [facility] Last Admin: 06/16/17 05:16 Dose: 20 mg Ondansetron HCl (Zofran Inj*) 4 mg IV Q6H PRN PRN Reason: NAUSEA Last Admin: 06/15/17 21:15 Dose: 4 mg Oxycodone HCl (Roxycodone Tab*) 15 mg PO Q4H PRN PRN Reason: PAIN Last Admin: 06/16/17 10:16 Dose: 15 mg Polyethylene Glycol/Electrolytes (Miralax*) 17 gm PO DAILY PRN PRN Reason: CONSTIPATION Prednisone (Deltasone Tab*) 50 mg PO DAILY [facility] Last Admin: 06/16/17 08:34 Dose: 50 mg Sertraline HCl (Zoloft*) 25 mg PO DAILY [facility] Last Admin: 06/16/17 08:34 Dose: 25 mg Sevelamer Carbonate (Renvela Tab*) 4,000 mg PO TID WITH MEALS [facility] Last Admin: 06/16/17 13:42 Dose: 4,000 mg Sodium Polystyrene Sulfonate (Kayexalate Oral.Tonya*) 15 gm PO DAILY PRN PRN Reason: Hyperkalemia Tiotropium Damon (Spiriva Cap.Inh*) 1 cap INH DAILY [facility] Last Admin: 06/16/17 08:21 Dose: 1 cap Vital Signs: Vital Signs: Temp Pulse Resp BP Pulse Ox 97.9 F 85 18 142/89 98 06/16/17 07:29 06/16/17 12:11 06/16/17 13:46 06/16/17 07:29 06/16/17 12:11 Patient Weight: Weight 206 lb 12.8 oz Intake and Output: Intake & Output 06/14/17 06/15/17 06/16/17 06/17/17 06:59 06:59 06:59 06:59 Intake Total 8139 065 3283 200 Balance 8479 014 4316 200 Weight 196 lb 3.382 oz 201 lb 8 oz 206 lb 12.8 oz Intake: IV Fluids 96 ABX - LEVAQUIN 96 Medicated IV 134 CC - Nitroglycerine/ 134 Tridil Oral 5727 939 0221 200 Other: # Bowel Movements 0 0 ADLs: Meal Record Start: 06/13/17 02: 32 Freq: 09,13,18 Status: Active Protocol: Document 06/13/17 09:00 [id number] (Rec: 06/13/17 12:25 [id number] ICU-C15) Document 06/13/17 13:00 [id number] (Rec: 06/13/17 15:54 [id number] ICU-C15) Document 06/13/17 18:00 [id number] (Rec: 06/13/17 19:24 [id number] ICU-C15) Document 06/14/17 09:00 [id number] (Rec: 06/14/17 09:16 [id number] ICU-C12) Document 06/14/17 13:00 [id number] (Rec: 06/14/17 14:32 [id number] TELE-C01) Document 06/14/17 18:00 [id number] (Rec: 06/14/17 18:01 [id number] TELE-C15) Document 06/15/17 09:00 [id number] (Rec: 06/15/17 10:39 [id number] TELE-C01) Document 06/15/17 13:00 [id number] (Rec: 06/15/17 15:10 [id number] TELE-C01) Document 06/15/17 21:28 [id number] (Rec: 06/15/17 21:28 [id number] TELE-M07) Document 06/16/17 09:00 [id number] (Rec: 06/16/17 10:57 [id number] TELE-C01) ADLs: Meal Record Start: 06/14/17 10: 41 Freq: DAILY@0900,1400,1800 Status: Inactive Protocol: Created 06/14/17 10:41 [id number] (Rec: 06/14/17 10:41 [id number] TELE-M02) Intake and Output Start: 06/13/17 02: 32 Freq: 06,14,22 Status: Inactive Protocol: Document 06/13/17 06:00 [id number] (Rec: 06/13/17 06:08 [id number] ICU-C25) Document 06/13/17 14:00 [id number] (Rec: 06/13/17 15:52 [id number] ICU-C15) Document 06/13/17 22:00 [id number] (Rec: 06/13/17 22:13 [id number] ICU-C06) Document 06/14/17 06:00 [id number] (Rec: 06/14/17 06:18 [id number] ICU-C06) Intake and Output Start: 06/14/17 10: 41 Freq: DAILY@0600,1400,2200 Status: Inactive Protocol: Created 06/14/17 10:41 [id number] (Rec: 06/14/17 10:41 [id number] TELE-M02) Intake and Output Start: 06/15/17 21: 54 Freq: Status: Active Protocol: Document 06/15/17 21:54 [id number] (Rec: 06/15/17 21:54 [id number] TELE-C13) Created 06/15/17 21:54 [id number] (Rec: 06/15/17 21:54 [id number] TELE-C13) General Impression: Pleasant, communicative AA female in NAD, moving about the room easily without O2 having just returned from dialysis. Head: Symmetrical Eyes: No Scleral Icterus Ears/Nose/Mouth/Throat: Mucous Membranes Moist Neck: NL Appearance and Movements; NL JVP Cardiovascular: NL Sounds; No Murmurs; No JVD, - - Heart rate irregular Respiratory: Symmetrical Chest Expansion and Respiratory Effort Abdominal: NL Sounds; No Tenderness; No Distention Extremities: No Clubbing, Cyanosis Neurological: Alert and Oriented x 3, NL Muscle Strength and Tone - Assessment Assessment: This patient has no interest in limiting her life-prolonging efforts and wants to have CPR, intubation, and every effort made to remain alive, no matter what the odds. She is certainly not willing to discontinue dialysis, which would be necessary for hospice enrolment. She was hoping to have home palliative services , and I have recommended her for our PATH program, but this is a minimal program as far as clinical intervention goes (i.e. no clinical follow up) and so I recommend she have more regular follow up with her PCP instead. Thanks for asking for palliative input. - Plan Consult Plan (MU): Palliative - Time On Unit Date of Evaluation: 06/16/17 Hospice Consult Time in: 14:35 Hospice Consult Time Out: 15:10 Hospice Consult Time Total: 35 > 50% of Time Spend In Counseling or Coordinating Care: Yes
[2017-06-16] MEDS ORDERED: Levofloxacin TAB* 500 MG PO SCH (16:00)
[2017-06-16 16:23] VITALS: BP 134/87
--- NOTE | 2017-06-17 23:46 | DS ---
CC: Franck Osorio MD; Rika Ceja MD * DISCHARGE SUMMARY: DATE OF ADMISSION: 06/12/17 DATE OF DISCHARGE: 06/16/17 ATTENDING PHYSICIAN: Naima Heller DO * (dictated by Jeff Morrell NP). PRIMARY CARE PROVIDER: None. PRIMARY DIAGNOSES: 1. Right lower lobe pneumonia. 2. Chronic obstructive pulmonary disease exacerbation. 3. Chronic chest pain. 4. Hypertensive urgency. 5. Uremic pruritus. 6. Hyponatremia, suspect secondary to hypervolemic hyponatremia. 7. Hypertroponinemia, suspect secondary to demand ischemia and in the setting of end-stage renal disease. SECONDARY DIAGNOSES: 1. End-stage renal disease, on hemodialysis. 2. Abdominal pain suspect secondary to coughing and muscular pain. 3. Anemia. 4. Hypertension. 5. Atrial fibrillation. 6. Congestive heart failure. 7. History of deep venous thrombosis. 8. History of coronary artery disease. 9. Obstructive sleep apnea. 10. Status post aortic valve replacement. CONSULTATION WHILE IN THE HOSPITAL: Dr. Gela Alvarez with palliative care services. STUDIES WHILE IN THE HOSPITAL: 1. Chest x-ray on 06/12/17. Radiologist impression: Cardiomegaly with interstitial edema and CHF. 2. Abdomen and pelvis CT scan on 06/12/17. Radiologist impression: Cardiomegaly. Bibasilar atelectasis. Hepatomegaly. Atrophic kidneys. 3. 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 Small amount of free fluid within the pelvis, decreased from 09/19/16. DISCHARGE MEDICATIONS: New home medications: 1. Mucinex 600 mg oral twice daily. 2. Hydroxyzine 25 mg oral every 6 hours as needed for itching. 3. Melatonin 3 mg oral daily at bedtime as needed for sleep. 4. Omeprazole 20 mg oral daily. 5. Levaquin 500 mg oral every other day, take 1 tablet on 06/16/17, 1 tablet on 06/18/17 and 1 tablet on 06/20/17. 6. Prednisone 500 mg oral daily for 4 days followed by 40 mg oral daily for 5 days, followed by 30 mg oral daily for 5 days, followed by 20 mg oral daily for 5 days, followed by 10 mg oral daily for 5 days and then stop. Changed home medication: 1. Metoprolol tartrate increased to 100 mg oral twice daily. Continued home medications: 1. Lidocaine, prilocaine apply cream topical every other day predialysis. 2. Singulair 10 mg oral daily. 3. Vitamin E 400 units oral twice daily. 4. Kayexalate 15 mg oral daily per dialysis nurse. 5. Sensipar 90 mg oral daily. 6. Nitroglycerin 0.4 mg sublingual every 5 minutes as needed for angina. 7. Xanax 0.25 mg oral 3 times daily as needed for anxiety. 8. Clonidine 0.3 mg oral twice daily. 9. B complex with C and folic acid 1 tablet oral daily. 10. Aspirin 81 mg oral daily. 11. Labetalol 200 mg oral twice daily. 12. Sevelamer 4000 mg oral 3 times daily with meals. 13. Combivent Respimat 1 inhalation every 6 hours. 14. Eliquis 5 mg oral twice daily. 15. Dulera 200/5, 2 puffs inhalation twice daily. 16. Sertraline 25 mg oral daily. 17. Spiriva 1 capsule inhalation daily. 18. Diltiazem 300 mg oral daily. 19. MiraLax 17 g oral daily as needed for constipation. 20. Oxycodone 15 mg oral every 4 hours as needed for pain. Discontinued home medication: Benadryl for sleep. HISTORY OF PRESENT ILLNESS/HOSPITAL COURSE: Ms. Joseph is a 46-year-old female with past medical history significant for end-stage renal disease on hemodialysis, DVT, PE, complicated by valvular hemorrhage, status post TAVR, mitral valve replacement, superior vena cava syndrome, COPD, CAD, chronic diastolic heart failure, atrial fibrillation, endocarditis, anemia of renal disease, hypertension, hyperlipidemia, anxiety and depression who presented to the emergency room with complaints of cough and congestion for 2 months, worse over the last few days with sharp right inferior chest wall pain with subjective fever, chills, sweats, nausea without emesis, diarrhea and shortness of breath. The patient reported that activity and palpation increased her pain and shortness of breath. She found no alleviating factors. She denied recently missing any dialysis sessions. Due to her symptoms, she presented to the emergency room for further evaluation. While in the emergency room, the patient had an EKG showing AFib, chest x-ray showing cardiomegaly, abdominal ultrasound showing atrophic right kidney, CT scan showing renal atrophy suggesting renal failure, correlation with renal function. Recommended cardiomegaly, suggesting cardiomyopathy, atelectasis in her lung bases, small fluid collection in her right pelvis, diminished from previous study. Due to her symptoms, the hospitalists were asked to evaluate the patient for admission. While in the hospital, the patient was treated for right lower lobe pneumonia with IV Levaquin. She had negative blood cultures. She had urine for Legionella and S pneumoniae that was negative. She presented in a hypertensive urgency and was initially in the intensive care unit on the nitro drip. Due to significant headaches, the nitro drip was weaned off and she was placed on hydralazine as needed for hypotension. Her chest pain was suspected to be secondary to her cough and muscular in nature as she had reproducible chest pain. Her hypertroponinemia was suspected to be secondary to demand ischemia. She was monitored on telemetry. During her stay, her shortness of breath and chest pain improved. She was also treated for COPD exacerbation with steroids and inhalers. She was continued on dialysis. She was seen in consultation by palliative care services and the patient does not wish to pursue hospice at this time, but is interested in palliative care services. Unfortunately, they are not available in the area at this time for outpatients. During her stay, she had atrial fibrillation with RVR. Her metoprolol was increased from 75 mg twice daily to 100 mg twice daily. This improved her heart rate and her blood pressures. She was able to maintain oxygen saturations on her home O2 of 2 L via nasal cannula. Ms. Joseph is stable for discharge to home today. PHYSICAL EXAMINATION: Vital signs are as follows: Temperature 98.0, heart rate 63, respiratory rate 18, O2 sat 92% on 2 L via nasal cannula, blood pressure 134/87. DISCHARGE PLAN: Ms. Joseph will be discharged to home. Activity as tolerated. She should be on a heart healthy renal diet with a 1200 mL fluid restriction daily. As far as he community acquired pneumonia, she will be continued on Levaquin 500 mg oral every other day for 3 more days. She will take a dose on 06/16/17, 06/18/17, and 06/20/17 and then discontinue. As far as her COPD exacerbation, she will be continued on a prednisone taper in addition to the Levaquin. She will take 50 mg oral daily for 4 days followed by 40 mg oral daily for 5 days followed by 30 mg oral daily for 5 days, followed by 20 mg oral daily for 5 days followed by 10 mg oral daily for 5 days and then discontinue. She has also been started on omeprazole as some of her symptoms could represent GERD. The patient states that as far as her chronic pain, she states that she is out of oxycodone. I have sent her a prescription. I did check I-STOP with reference #[id number]. The patient has been set up with a followup appointment with Dr. Ceja. She has an appointment on 06/18/17 at 8 a.m. At the time of discharge, she does not have a primary care provider. My office is working on setting her up with a primary care provider. As far as her hypertension, again her Lopressor has been increased to 100 mg oral twice daily from 75. During her stay, she was complaining of itching. She has been given a prescription for hydroxyzine as needed for itching. She has been encouraged to use melatonin to assist with sleep. Her other usual home medications had been continued. On the day of discharge, she was noted to be hyponatremic and hyperkalemic with an elevated BUN and creatinine. I suspect this is secondary to hypervolemia and she received dialysis on the day of discharge. The patient has been asked to return to the emergency room for any changes of chest discomfort or shortness of breath. POINTS FOR FOLLOWUP: The patient needs to be encouraged to continue to follow up with medical care as she often no shows for followup appointment. Recommend continuing to follow chemistry on her intermittently. This is a summarized report of a complex medical history and hospital stay. For further details, please see the entire medical record. TIME SPENT: Time for this discharge was approximately 50 minutes, greater than half of that was spent with the patient discussing discharge plans and instructions. CONDITION ON DISCHARGE: Stable. JEFF MORRELL NP [id number]/[facility] #: [id number] SHI
== END 2017-06-16 16:45 | disposition home or self-care (01) | DRG 193 ==
LOC: ED 20:48 → ICU 06-13 02:00 → MEDTELE 06-14 08:25
PROVIDERS: ADMIT Hospitalist; ATTEND Internal Medicine
PROC: 5A09457 Assistance with Respiratory Ventilation, 24-96 Consecutive Hours, Continuous Positive Airway Pressure (ICD-10-PCS; 2017-06-12)
PROC: 5A1D70Z Performance of Urinary Filtration, Intermittent, Less than 6 Hours Per Day (ICD-10-PCS; principal; 2017-06-13)
PROC: 5A1D70Z Performance of Urinary Filtration, Intermittent, Less than 6 Hours Per Day (ICD-10-PCS; 2017-06-16)
DX: J18.9 Pneumonia, unspecified organism (principal); N18.6 End stage renal disease; I13.2 Hypertensive heart and chronic kidney disease with heart failure and with stage 5 chronic kidney disease, or end stage renal disease; I24.8 Other forms of acute ischemic heart disease; E87.1 Hypo-osmolality and hyponatremia; E87.5 Hyperkalemia; J44.1 Chronic obstructive pulmonary disease with (acute) exacerbation; I87.1 Compression of vein; I50.32 Chronic diastolic (congestive) heart failure; E87.79 Other fluid overload; R07.89 Other chest pain; I16.0 Hypertensive urgency; L29.8 Other pruritus; M79.1 Myalgia; I48.91 Unspecified atrial fibrillation; I25.10 Atherosclerotic heart disease of native coronary artery without angina pectoris; G47.33 Obstructive sleep apnea (adult) (pediatric); F17.210 Nicotine dependence, cigarettes, uncomplicated; D63.1 Anemia in chronic kidney disease; E78.5 Hyperlipidemia, unspecified; F41.8 Other specified anxiety disorders; Z86.711 Personal history of pulmonary embolism; Z99.2 Dependence on renal dialysis; Z86.718 Personal history of other venous thrombosis and embolism; Z79.82 Long term (current) use of aspirin; Z79.891 Long term (current) use of opiate analgesic; Z79.899 Other long term (current) drug therapy; Z88.0 Allergy status to penicillin; Z88.8 Allergy status to other drugs, medicaments and biological substances; Z95.1 Presence of aortocoronary bypass graft; Z95.3 Presence of xenogenic heart valve
CPT/HCPCS: 36415; 36600; 71045; 74176; 76705; 80048; 80053; 82803; 83605; 83880; 84484; 85025; 85610; 85730; 86140; 87040; 87502; 87899; 90935; 93005; 94640; 94660; 94760; 99285; A9270-GY; G0257; J0360; J0885; J1644; J1956; J2270; J2405; J2920; J2930; J3475; J7512

== ENCOUNTER 2017-08-02 04:24 | Inpatient (IN) | payer MEDICARE, MEDICAID ==
[2017-08-02] MEDS ORDERED: Etomidate* 2 MG/ML 20 ML VIAL (40 MG) ONE (04:29)
[2017-08-02] MEDS ORDERED: Succinylcholine* 20 MG/ML 10 ML VIAL ONE (04:29)
[2017-08-02] MEDS ORDERED: fentaNYL* 50 MCG/ML 2 ML VIAL (100 MCG VIAL) ONE (04:38)
[2017-08-02] MEDS ORDERED: fentaNYL* 50 MCG/ML 2 ML VIAL (100 MCG VIAL) IV SLOW PU ONE (04:44)
[2017-08-02] MEDS ORDERED: Midazolam* 1 MG/ML 5 ML VIAL (5 MG) SLOW PUSH ONE ×4 (04:44→07:09)
[2017-08-02] MEDS ORDERED: Midazolam* 1 MG/ML 10 ML VIAL (10 MG) ONE (04:51)
[2017-08-02] MEDS ORDERED: Propofol* 100 ML ONE (05:08)
[2017-08-02] MEDS ORDERED: Sodium Bicarbonate 8.4% IV* 50 ML VIAL IV ONE (05:14)
[2017-08-02] MEDS ORDERED: Calcium CHLORIDE 10% SYRINGE* 1 GM/10 ML IV ONE (05:15)
[2017-08-02] MEDS ORDERED: Amiodarone 150 MG IVPREMIX* 150 MG/100 ML BAG IV ONE (05:16)
[2017-08-02] MEDS ORDERED: Levofloxacin 750 MG IVPREMIX(* 750 MG/150 ML BAG IVPB ONE (05:23)
[2017-08-02 05:31] LABS: ABS Basophils 0.1 10^3/ul (0-0.2); ABS Eosinophils 0.1 10^3/ul (0-0.6); ABS Lymphocytes 1.5 10^3/ul (1.0-4.8); ABS Monocytes 0.4 10^3/ul (0-0.8); ABS Neutrophils 11.2 10^3/ul (1.5-7.7); ABS Nucleated RBC 0 10^3/ul; Eosinophil % 0.6 % (0-6); Hematocrit 26 % (35-47); Hemoglobin 8.6 g/dl (12.0-16.0); Lymphocyte % 11.6 % (25-47); Mean Corpuscular HGB Conc 33 g/dl (31-36); Mean Corpuscular Hemoglobin 34 pg (27-31); Mean Corpuscular Volume 103 fL (80-97); Mean Platelet Volume 9 um3 (7.4-10.4); Nucleated Red Blood Cells % 0.2; Platelet Count 213 10^3/ul (150-450); Red Blood Count 2.52 10^6/ul (4.0-5.4); Red Cell Distribution Width 18 % (10.5-15); White Blood Count 13.3 10^3/ul (3.5-10.8)
[2017-08-02 05:48] LABS: EGFR Non-African American 6.2 (>60)
[2017-08-02] MEDS ORDERED: Amiodarone IV VIAL* 50 MG/ML 3 ML VIAL (150 MG) SLOW PUSH ONE (06:00)
--- NOTE | 2017-08-02 06:54 | ED ---
Jake Greenwood Tecjoon, scribed for Yoselyn Vicente MD on 08/02/17 at 0524 . 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 It is unknown the time of onset. Patient is unable to speak due to respiratory distress. HPI Limited due to Level 5 Caveat: Extreme Respiratory Distress. - History of Current Complaint Chief Complaint: EDRespiratoryDistress Stated Complaint: SOB Time Seen by Provider: 08/02/17 04:34 Hx Obtained From: Patient Timing: Constant Current Severity: Severe - Additional Pertinent History Primary Care Physician: VIRA - Allergy/Home Medications Allergies/Adverse Reactions: Allergies Allergy/AdvReac Type Severity Reaction Status Date / Time iodixanol Allergy Severe Airway Verified 07/22/17 14:54 Obstruction lisinopril Allergy Severe Difficulty Verified 07/22/17 14:54 Breathing Penicillins Allergy Severe HIVES, Verified 07/22/17 14:54 SWELLING OF THROAT Cephalosporins Allergy Unknown Unknown Verified 07/22/17 14:54 Reaction Details PMH/Surg Hx/FS Hx/Imm Hx Previously Healthy: No Endocrine/Hematology History: Reports: Hx Anticoagulant Therapy, Hx Blood Transfusions, Hx Anemia, Hx Unexplained Bleeding Denies: Hx Blood Disorders, Hx Bone Marrow Disease, Hx Diabetes, Hx Systemic Lupus Erythematosus, Hx Sickle Cell Disease, Hx Thyroid Disease, Other Endocrine /Hematological Disorders Cardiovascular History: Reports: Hx Angina, Hx Cardiomegaly, Hx Congestive Heart Failure, Hx Coronary Artery Disease, Hx Deep Vein Thrombosis, Hx Embolism , Hx Hypercholesterolemia, Hx Hypertension, Hx Myocardial Infarction, Hx Valvular Heart Disease, Other Cardiovascular Problems/Disorders - 2 artificial heart valves; Hx of endocarditis Denies: Hx Aneurysm, Hx Angioplasty, Hx Auto Implanted Cardiovert Defib, Hx Cardiac Arrest, Hx Congenital Heart Disease, Hx Hypotension, Hx Pacemaker/ICD, Hx Peripheral Vascular Disease, Hx Rheumatic Fever, Hx Syncope Respiratory History: Reports: Hx Asthma, Hx Chronic Obstructive Pulmonary Disease (COPD), Hx Pneumonia, Hx Pulmonary Edema, Hx Pulmonary Embolism Denies: Hx Chronic Bronchitis, Hx Cystic Fibrosis, Hx Lung Cancer, Hx Pleural Effusion, Hx Seasonal Allergies, Hx Sleep Apnea, Other Respiratory Problems/Disorders GI History: Reports: Hx Gastroesophageal Reflux Disease, Hx Gastrointestinal Bleed History: Reports: Hx Acute Renal Failure, Hx Chronic Renal Failure, Hx Dialysis - ESRD, [place] ON //FRI, Hx Renal Disease Denies: Hx Benign Prostatic Hyperplasia, Hx Kidney Infection, Hx Kidney Stones, Other Problems/Disorders Musculoskeletal History: Reports: Hx Arthritis, Hx Back Problems Denies: Hx Bursitis, Hx Congenital Bone Abnormalities, Hx Fibromyalgia, Hx Gout, Hx Orthopedic Injury, Hx Osteoporosis, Hx Scoliosis, Hx Tendonitis, Other Musculoskeletal History Sensory History: Reports: Hx Contacts or Glasses Denies: Hx Hearing Aid Opthamlomology History: Reports: Hx Contacts or Glasses Neurological History: Reports: Hx Headaches Denies: Hx Dementia, Hx Developmental Delay, Hx Migraine, Hx Nerve Disease, Hx Seizures, Hx Spinal Cord Injury, Hx Transient Ischemic Attacks (TIA), Other Neuro Impairments/Disorders Psychiatric History: Reports: Hx Anxiety, Hx Depression Denies: Hx Attention Deficit Hyperactivity Disorder, Hx Eating Disorder, Hx Panic Disorder, Hx Post Traumatic Stress Disorder, Hx Inpatient Treatment, Hx Community Mental Health Tx, Hx Schizophrenia, Hx Bipolar Disorder, Hx Suicide Attempt, Hx of Violent Episodes Against Others, Hx Substance Abuse, Other Psychiatric Issues/Disorders - Surgical History Surgery Procedure, Year, and Place: bilateral knees, dialysis tube placed in abdomen( out), fistula tube placement in arm for dialysis Lt arm has been revised. waiting out ok to use [id number], open heart valve replacement, hysterectomy, stents Hx Anesthesia Reactions: No - Immunization History Date of Tetanus Vaccine: Unk Date of Influenza Vaccine: Unk Infectious Disease History: Unable to Obtain/Confirm Infectious Disease History: Reports: Hx of Known/Suspected MRSA Denies: Hx Clostridium Difficile, Hx Hepatitis, Hx Human Immunodeficiency Virus (HIV), Hx Shingles, Hx Tuberculosis, Hx Known/Suspected VRE, History Other Infectious Disease, Traveled Outside the [place] in Last 30 Days - Family History Known Family History: Positive: Hypertension - Mother, Diabetes - Mother, Other - negative FHx for malignant hyperthermia and anesthesia rxn. Family History: Father -- Lung CA - Social History Alcohol Use: None Hx Substance Use: No Substance Use Type: Reports: None Hx Tobacco Use: Yes Smoking Status (MU): Former Smoker Type: Cigarettes Amount Used/How Often: 1 cigarettes a day Length of Time of Smoking/Using Tobacco: 15 Have You Smoked in the Last Year: Yes Review of Systems Negative: Fever Positive: Other - extreme respiratory distress All Other Systems Reviewed And Are Negative: No - Comments Additional Review of Systems Comments: ROS Limited due to Level 5 Caveat: Extreme Respiratory Distress. Physical Exam - Summary Physical Exam Summary: GENERAL: Patient is a well-developed and nourished female who is lying in stretcher. Patient is in severe respiratory distress. LUNGS: Tachypnic CVS: Tachycardic. SKIN: Diaphoretic, Cyanotic Initially, did not have IV access. IV started in RLE and intubated immediately. Post Intubation: Patient has diffuse ranes in lung area. Bilateral interstitial infiltrate. Copious amount of frothy secretion PE Limited due to Level 5 Caveat: Severe Respiratory Distress Triage Information Reviewed: No Vital Signs On Initial Exam: Initial Vitals Temp Pulse Resp BP Pulse Ox 95.8 F 155 40 135/92 90 08/02/17 04:34 08/02/17 04:34 08/02/17 04:34 08/02/17 04:34 08/02/17 04:34 Vital Signs Reviewed: No Completion Of Physical Exam Limited Due To: Level 5, Other - Extreme Respiratory Distress Procedures - Procedure Summary Procedure Summary: External Jugular line placed in right EJ. 18 gauge. IO started in the medial aspect of right upper tibial. - Intubation Time of Intubation: 05:00 Intubation Method: orotracheal Tube Size (cm): 8.0 Medications: Succinylcholine Breath Sounds after Intubation: equal Intubation Complications: no complications Post Intubation Xray: Yes Diagnostics - Vital Signs Vital Signs Temp Pulse Resp BP Pulse Ox 08/02/17 05:00 123 36 138/101 100 08/02/17 04:47 181 32 88 08/02/17 04:45 138/96 08/02/17 04:34 95.8 F 155 40 135/92 90 - Laboratory Result Diagrams: 08/02/17 05:06 08/02/17 05:06 Lab Statement: Any lab studies that have been ordered have been reviewed, and results considered in the medical decision making process. - Radiology CXR Xray Interpretation: Positive (See Comments) - CXR reveals, per radiologist, IMPRESSION: Bilateral interstitial infiltrate. Right lower lobe infiltrate. ED physician has reviewed this radiology report. Pending official report. Radiology Interpretation Completed By: ED Physician, Radiologist - EKG 0440 Cardiac Rate: NL EKG Rhythm: Atrial Fibrillation - 149 BPM EKG Interpretation: LVH with strain, peaked T-waves 0459 Cardiac Rate: NL EKG Rhythm: Atrial Fibrillation - 113 BPM EKG Interpretation: taken post 300mg Amiodarone. peaked T-waves, LVH with strain 0530 Cardiac Rate: NL EKG Rhythm: Sinus Rhythm - 91 BPM EKG Interpretation: taken post sodium bicarb and calc. chrloide. IVCD, peaked T- waves EKG Comparison: Other - Peaked T-waves are less peaked than the previous EKGs. 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 Patient was intubated and EJ started in right EJ. 18 gauge. IO also started in medial aspect of right upper tibial. An EKG, taken 0440 , reveals A Fib (149 BPM), LVH with strain, peaked T -waves. An EKG, taken 0459 , reveals Post 300mg of amiodorona. A Fib/flutter ( 113 BPM), peaked T-waves, LVH with strain. An EKG, taken 0530, reveals post sodium bicarb and calc chlorid SR (91 BPM), IVCD, peaked T-waves are less peaked than previous. CXR reveals, per radiologist, IMPRESSION: Bilateral interstitial infiltrate. Right lower lobe infiltrate. ED physician has reviewed this radiology report. Pending official report. Bloodwork Obtained. Urinalysis Obtained. In the ED course the patient was given Nexterone, Calcium Chloride, Fentanyl, Levaquin, Versed, Sodium Bicarbonate. Patient heart rate was 140-150 while complex tachycardia. Patient was cardioverted using 200 joules. We discussed patient care with Dr. Osorio (Nephrology) at 0457 and they recommended STAT dialysis. We discussed patient care with Dr. Li ( Hospitalist) at 0557 and they agreed to accept the patient. The patient will be diagnosed with pulmonary edema, right lower lobe pneumonia, respiratory failure. The patient will be admitted to the floor. The patient is agreeable with this plan. - Diagnoses Provider Diagnoses: Pulmonary edema, Right lower lobe pneumonia, Respiratory failure - Physician Notifications Discussed Care Of Patient With: Franck Osorio - Soils Analyst Time Discussed With Above Provider: 04:57 - We discussed patient care with Dr. Osorio (Nephrology) at 0457 and they recommended STAT dialysis. Instructed by Provider To: Admit As Inpatient - We discussed patient care with Dr. Li (Hospitalist) at 0557 and they agreed to accept the patient. - Critical Care Time Critical Care Time: 30-74 min - 50 Discharge - Discharge Plan Condition: Stable Disposition: ADMITTED TO [facility] Referrals: No Primary Care Phys,NOPCP [Primary Care Provider] - The documentation as recorded by the Jake sosa Tecjoon accurately reflects the service I personally performed and the decisions made by , Yoselyn Vicente MD.
[2017-08-02] MEDS ORDERED: fentaNYL PCA* 20 ML PCA SCH (08:00)
[2017-08-02] MEDS ORDERED: Propofol* 100 ML IVPB SCH (08:00)
--- NOTE | 2017-08-02 08:08 | RAD ---
HISTORY: Shortness of breath COMPARISONS: June 12, 2017 VIEWS: 1: frontal portable view of the chest at 5:18 AM FINDINGS: LINES AND TUBES: An endotracheal tube is noted with the tip overlying the trachea between the clavicles and the sona. A vascular stent is noted overlying the expected location of the aortic outflow tract. CARDIOMEDIASTINAL SILHOUETTE: The cardiac silhouette is enlarged. The cardiomediastinal silhouette is otherwise normal for portable technique. PLEURA: The costophrenic angles are sharp. No pleural abnormalities are noted. LUNG PARENCHYMA: There is multifocal patchy alveolar opacification throughout both lungs. There is diffuse reticular pattern of opacification. ABDOMEN: The upper abdomen is clear. There is no subphrenic gas. BONES AND SOFT TISSUES: No bone or soft tissue abnormalities are noted. IMPRESSION: 1. LINES AND TUBES ABOVE. 2. CARDIOMEGALY. 3. PULMONARY INTERSTITIAL EDEMA. 4. THERE HAS BEEN INTERVAL DEVELOPMENT OF PATCHY MULTIFOCAL CONSOLIDATION.
[2017-08-02] MEDS ORDERED: fentaNYL* 50 MCG/ML 2 ML VIAL (100 MCG VIAL) IV SLOW PU PRN (08:20)
[2017-08-02] MEDS: Propofol* 100 ML IVPB SCH ×3 (08:20→21:18)
[2017-08-02] MEDS ORDERED: Polyethylene Glycol 3350* 17 GM PACKET PO PRN (08:22)
[2017-08-02] MEDS ORDERED: hydrOXYzine HCL TAB* 25 MG PO PRN (08:22)
[2017-08-02] MEDS ORDERED: Melatonin (NF) 3 MG TAB PO PRN (08:22)
[2017-08-02] MEDS: Albuterol/Ipratropium RESP(NF) MDI (Combivent Respimat) INH SCH ×2 (08:52→16:04)
[2017-08-02] MEDS ORDERED: Heparin DIALYSIS ONLY(*) 1,000 UNITS/ML VIAL DIALYSIS ONE (09:00)
[2017-08-02] MEDS ORDERED: Spiriva Inhaler DEVICE* 1 EACH DEVICE INH ONE (09:00)
[2017-08-02] MEDS ORDERED: Mometasone/Formoter 200/5 MDI INH SCH (09:00)
[2017-08-02] MEDS ORDERED: Epoetin Alfa* 10,000 UNITS/ML VIAL IV ONE (09:00)
[2017-08-02] MEDS ORDERED: Tiotropium CAP.INH* CAP.INH/18 MCG (USE ORDER SET !) INH SCH (09:00)
[2017-08-02] MEDS: Metoprolol Tartrate TAB* 100 MG TAB PO SCH ×2 (10:03→19:32)
[2017-08-02] MEDS: Montelukast Sodium TAB* 10 MG PO SCH (10:03)
[2017-08-02] MEDS: Sertraline* 25 MG TAB PO SCH (10:03)
[2017-08-02] MEDS: Aspirin EC Low Dose* 81 MG TAB.EC PO SCH (10:03)
[2017-08-02] MEDS: Apixaban* 5 MG TAB PO SCH ×2 (10:03→19:32)
[2017-08-02] MEDS: Cinacalcet TAB* 30 MG PO SCH (10:03)
[2017-08-02] MEDS: Morphine INJ* 10 MG/ML 1 ML CARPUJECT IV PRN ×4 (12:36→23:37)
--- NOTE | 2017-08-02 13:04 | HP ---
H&P (Free Text) History and Physical: CRITICAL CARE MEDICINE DATE: 08/02/17 TIME: 1235 REFERRING PROVIDER: Frankie REASON/CHIEF COMPLAINT: sob HISTORY OF PRESENT ILLNESS: 46 F, well known to icu presenting in early am with sob. Required emergent intubation in ED. Concern for wct and post amio, received defib x2 I'm told. cxr with pulm edema. Pt to icu for emergent hd needs. REVIEW OF SYSTEMS: As per HPI. limited sec to acuity. PAST MEDICAL HISTORY: As per HPI and reviewed per records. MEDICATIONS: Reviewed, but unconfirmed at this time. ALLERGIES: Reviewed. SOCIAL HISTORY: Reviewed. FAMILY HISTORY: Noncontributory at present. PHYSICAL EXAM: Vital Signs: Reviewed. Hr 110s. MV on 12/5 30% about 12-13Lpm. rr 20s. Neurologic: awake, communicating on vent. low dose prop. nonfocal. HEENT: aniteric. no ogt, but ett in place. Cardiovascular: distant, S1, S2, / mr samuel. Respiratory: coarse bl with rales. Abdomen: obese, soft Extremities: warm; post i/o removal right tib LABS: Reviewed. IMAGING: Reviewed. MEDICATIONS: Reviewed. ASSESSMENT: 46 F Acute pulm edema leading to acute hypoxic resp failure secondary to acute on chronic esrd, with vol overload needing emergent HD with hypoperfusion lactic acidosis on admission PLAN: Neurologic: stable. c/o cp sec to defib. prn morphine. on low dose prop continued. Cardiovascular: perfusing. vol overload now post HD. allowing equilibration as remaining tachy. mild troponin leak. may need re-eval with echo again to assess valves but wait till off ppv and as tolerating. ecg was looking like afib with abberant conduction now sinus with pac, pvc. follow. Respiratory: cpap and tolerating but still with some wob and weak overall post events. may need more time with vent today and move towards liberation tomorrow as otherwise may end up simply needing more bipap anyway. take our time. doubt any infiltrating dz, however check flu on off hand. Gastrointestinal: place ogt for meds and can utilize tf tonight perhaps. sup. Renal/Metabolic: HD today and f/u equilibration. Infectious Disease: no abx need, but her wbc was up which is a little abnormal for her. f/u. Hematology: stable. Endocrine: f/u bg Musculoskeletal: oob later as able Psych/Social: d/w pt and she agrees with full day of mv towards liberation tomorrow. Supportive and preventative care as ordered. SUP: ppi VTE prophylaxis: heparin Disposition: ICU Code Status: Full Critical Care Time: 45min FAleksandr Humphrey DO
[2017-08-02] MEDS: Sevelamer TAB* 800 MG PO SCH ×2 (13:21→19:31)
[2017-08-02] MEDS: Chlorhexidine MOUTHWASH 0.12%* 15 ML UDC TOPICAL SCH ×3 (16:31→23:31)
--- NOTE | 2017-08-02 16:40 | RAD ---
HISTORY: Confirm orogastric tube placement COMPARISONS: July 25, 2017 VIEWS: 3: frontal portable view of the chest at 4:21 PM FINDINGS: LINES AND TUBES: An endotracheal tube is noted with the tip overlying the trachea between the clavicles and the sona. A gastric tube is noted. The tip is below the [id number] of the current examination, but is below the diaphragm. A metallic stent is noted in the region of the aortic outflow tract. CARDIOMEDIASTINAL SILHOUETTE: The cardiac silhouette is enlarged. The cardiomediastinal silhouette is otherwise normal for portable technique. PLEURA: The costophrenic angles are sharp. No pleural abnormalities are noted. LUNG PARENCHYMA: There is a diffuse reticular pattern with indistinct pulmonary vessels. There is more focal confluent alveolar opacification of the right lower lung and right midlung. ABDOMEN: The upper abdomen is clear. There is no subphrenic gas. BONES AND SOFT TISSUES: The patient is status post median sternotomy. IMPRESSION: 1. LINES AND TUBES ABOVE. 2. CARDIOMEGALY. 3. PULMONARY INTERSTITIAL EDEMA. 4. MULTIFOCAL CONSOLIDATION
[2017-08-02] MEDS ORDERED: Albuterol/Ipratropium NEB.SOL* Albuterol 2.5 MG/Ipratropium 0.5 MG 3 ML INH PRN (17:34)
[2017-08-02] MEDS: Famotidine SUSP* 40 MG/5 ML ORAL.SYRIN G TUBE SCH (18:18)
[2017-08-03] MEDS: Propofol* 100 ML IVPB SCH ×5 (04:04→21:35)
[2017-08-03] MEDS: Chlorhexidine MOUTHWASH 0.12%* 15 ML UDC TOPICAL SCH ×5 (04:04→19:30)
[2017-08-03 06:02] LABS: ABS Basophils 0.1 10^3/ul (0-0.2); ABS Eosinophils 0.1 10^3/ul (0-0.6); ABS Lymphocytes 0.6 10^3/ul (1.0-4.8); ABS Monocytes 0.9 10^3/ul (0-0.8); ABS Neutrophils 7.6 10^3/ul (1.5-7.7); ABS Nucleated RBC 0 10^3/ul; Eosinophil % 1.2 % (0-6); Hematocrit 24 % (35-47); Hemoglobin 8.2 g/dl (12.0-16.0); Lymphocyte % 6.2 % (25-47); Mean Corpuscular HGB Conc 34 g/dl (31-36); Mean Corpuscular Hemoglobin 35 pg (27-31); Mean Corpuscular Volume 102 fL (80-97); Mean Platelet Volume 8 um3 (7.4-10.4); Nucleated Red Blood Cells % 0.1; Platelet Count 158 10^3/ul (150-450); Red Blood Count 2.37 10^6/ul (4.0-5.4); Red Cell Distribution Width 17 % (10.5-15); White Blood Count 9.3 10^3/ul (3.5-10.8)
[2017-08-03 06:20] LABS: EGFR Non-African American 8.3 (>60)
[2017-08-03] MEDS: Sevelamer TAB* 800 MG PO SCH ×3 (07:58→16:45)
[2017-08-03] MEDS: Sertraline* 25 MG TAB PO SCH (09:21)
[2017-08-03] MEDS: Apixaban* 5 MG TAB PO SCH ×3 (09:21→20:49)
[2017-08-03] MEDS: Montelukast Sodium TAB* 10 MG PO SCH (09:21)
[2017-08-03] MEDS: Metoprolol Tartrate TAB* 100 MG TAB PO SCH ×2 (09:21→20:49)
[2017-08-03] MEDS: Famotidine SUSP* 40 MG/5 ML ORAL.SYRIN G TUBE SCH (09:24)
[2017-08-03] MEDS: Aspirin EC Low Dose* 81 MG TAB.EC PO SCH ×2 (09:24→09:28)
[2017-08-03] MEDS: Cinacalcet TAB* 30 MG PO SCH (09:25)
[2017-08-03] MEDS ORDERED: fentaNYL PATCH 25 MCG/HR TRANSDERM SCH (11:00)
--- NOTE | 2017-08-03 12:31 | PN ---
Progress Note - Progress Note Date of Service: 08/03/17 Note: CRITICAL CARE MEDICINE DATE: 08/03/17 TIME: 1015 SUBJECTIVE: Patient seen and examined. PHYSICAL EXAM: Vital Signs: Reviewed. Hr better but still about 100. MV on / 30% still about 12-13Lpm at rest. rr 20s. Neurologic: awake, communicating on vent. low dose prop. nonfocal. anxious. HEENT: aniteric. ogt, ett Cardiovascular: distant, S1, S2, / mr baker. Respiratory: coarse bl R>L rales Abdomen: obese, soft Extremities: warm LABS: Reviewed. IMAGING: Reviewed. MEDICATIONS: Reviewed. ASSESSMENT: 46 F Acute pulm edema leading to acute hypoxic resp failure secondary to acute on chronic esrd, with vol overload needing emergent HD with hypoperfusion lactic acidosis on admission Improved - but residual pulm edema and weak overall PLAN: Neurologic: stable. as d/w pt. inc prop today and allow comofrt. add fent td instead of gtt for now. Cardiovascular: perfusing. vol overload and for HD again tomorrow. otherwise stable for her. Respiratory: inc prop today, change to aprv to maximize lungs and plan to have HD in am tomorrow prior to liberation as she is scared and worried about wob, chest pains post defib, and overall condition. may still need early bipap but less so if we wait till tomorrow hopefully. Gastrointestinal: ogt; tf today. sup. Renal/Metabolic: HD ratna and f/u equilibration with vent liberation post. Infectious Disease: no abx need. wbc down post reactive. Hematology: stable. Endocrine: f/u bg Musculoskeletal: oob later Psych/Social: d/w pt and she agrees with waiting for liberation tomorrow. Supportive and preventative care as ordered. SUP: h2 VTE prophylaxis: heparin Disposition: ICU Code Status: Full Critical Care Time: 35min Jennifer Humphrey DO
[2017-08-03] MEDS: fentaNYL Patch Check Q Shift 1 NOTE SCH (19:20)
[2017-08-03] MEDS: Morphine INJ* 10 MG/ML 1 ML CARPUJECT IV PRN (19:30)
[2017-08-03] MEDS ORDERED: Metoprolol Tartrate TAB* 25 MG PO ONE (20:37)
[2017-08-04] MEDS: Chlorhexidine MOUTHWASH 0.12%* 15 ML UDC TOPICAL SCH ×4 (00:19→12:57)
[2017-08-04] MEDS: Morphine INJ* 10 MG/ML 1 ML CARPUJECT IV PRN ×4 (00:23→15:53)
[2017-08-04] MEDS: Propofol* 100 ML IVPB SCH ×3 (01:03→09:44)
[2017-08-04] MEDS: ALPRAZolam TAB* 0.25 MG PO PRN ×2 (05:10→13:01)
[2017-08-04 06:04] LABS: Hematocrit 24 % (35-47); Mean Corpuscular HGB Conc 33 g/dl (31-36); Mean Corpuscular Hemoglobin 34 pg (27-31); Mean Corpuscular Volume 101 fL (80-97); Mean Platelet Volume 9 um3 (7.4-10.4); Platelet Count 184 10^3/ul (150-450); Red Blood Count 2.38 10^6/ul (4.0-5.4); Red Cell Distribution Width 18 % (10.5-15); White Blood Count 12.8 10^3/ul (3.5-10.8)
[2017-08-04 06:14] LABS: EGFR Non-African American 5.4 (>60)
[2017-08-04] MEDS: fentaNYL Patch Check Q Shift 1 NOTE SCH (07:29)
[2017-08-04] MEDS: Sevelamer TAB* 800 MG PO SCH ×2 (07:43→12:57)
[2017-08-04] MEDS: Cinacalcet TAB* 30 MG PO SCH (07:44)
[2017-08-04] MEDS: Aspirin EC Low Dose* 81 MG TAB.EC PO SCH (07:47)
[2017-08-04] MEDS: Apixaban* 5 MG TAB PO SCH (07:47)
[2017-08-04] MEDS: Montelukast Sodium TAB* 10 MG PO SCH (07:47)
[2017-08-04] MEDS: Sertraline* 25 MG TAB PO SCH (07:47)
--- NOTE | 2017-08-04 11:46 | PN ---
Progress Note - Progress Note Date of Service: 08/04/17 Note: CRITICAL CARE MEDICINE DATE: 08/04/17 TIME: 1100 SUBJECTIVE: Patient seen and examined. PHYSICAL EXAM: Vital Signs: Reviewed. maintaining. Neurologic: awake, communicating on vent. low dose prop. nonfocal. less anxious. HEENT: aniteric. ogt, ett Cardiovascular: distant, S1, S2, 3/6 mr samuel. Respiratory: coarse bl R>L soft rales Abdomen: obese, soft Extremities: warm LABS: Reviewed. IMAGING: Reviewed. MEDICATIONS: Reviewed. ASSESSMENT: 46 F Acute pulm edema leading to acute hypoxic resp failure secondary to acute on chronic esrd, with vol overload needing emergent HD with hypoperfusion lactic acidosis on admission Improved - but residual pulm edema and weak overall PLAN: Neurologic: stable. off prop post hd. fent td for now. Cardiovascular: perfusing. bp soft but toleratble . holding her meds until liberation. Respiratory: david with good ventilation now. liberate post hd today. potential nocturnal bipap. Gastrointestinal: ogt; sup. Renal/Metabolic: HD today Infectious Disease: no abx need. Hematology: stable. Endocrine: f/u bg Musculoskeletal: oob later Psych/Social: d/w pt and she agrees with waiting for liberation later. Supportive and preventative care as ordered. SUP: h2 VTE prophylaxis: heparin Disposition: ICU Code Status: Full Critical Care Time: 35min Jennifer Humphrey DO
[2017-08-04] MEDS ORDERED: Heparin DIALYSIS ONLY(*) 1,000 UNITS/ML VIAL DIALYSIS ONE (12:00)
[2017-08-04] MEDS ORDERED: NS 0.9% 100 ML* 100 ML IV PRN (12:02)
[2017-08-04] MEDS ORDERED: Epoetin Alfa* 10,000 UNITS/ML VIAL IV ONE (12:05)
[2017-08-04] MEDS: Metoprolol Tartrate TAB* 100 MG TAB PO SCH (14:54)
[2017-08-04] MEDS ORDERED: Metoprolol Tartrate IV* 1 MG/ML 5 ML VIAL IV ONE (16:11)
[2017-08-04] MEDS ORDERED: Metoprolol Tartrate IV* 1 MG/ML 5 ML VIAL ONE (16:12)
[2017-08-04] MEDS ORDERED: LORazepam INJ* 2 MG/ML 1 ML VIAL ONE (16:41)
--- NOTE | 2017-08-04 18:07 | PN ---
Progress Note - Progress Note Date of Service: 08/04/17 Note: CRITICAL CARE MEDICINE DATE: 08/05/17 TIME: 1530 Pt tolerated HD. We discussed again prior to liberation from vent the transition back to O2 and equilibration post liberation. HR up a touch and anxious. given anxiolytic. liberated and Hr went up post liberation. Breathing actually looked comfortable even though she had a few episodes of upper hemoptysis. D/w pt, and she seems ok to relax and breath. Hr remains about 130s , appearing as afib with aberrant conduction, and lopressor 5mg given IV. About 20min later patient's HR stayed up and now towards 160s with probable aflutter with abberant conduction with more anxiety and stating she can't breath and tripoding. BP up some. Assessed at that time and set up for intubation as she did have some inspiratory stidor and distress, and although she did not seem like straight laryngeal edema as she was able to phonate, but her distress was still there. Intubation: mask O2 15Lpm, and given fent 100mcg iv x1 and 2 min later 100mcg iv x1; then 50mg propofol. Able to intubate with 7.5 ett to 23cm lip with + etco2 and good bs. She began to slow HR initially from 160s to 130s. Seemed to hold a moment and then started slowing further. Called for nursing to bring atropine. She continued to amalia and atropine given but began losing pulse at that time and cpr/code started. She showed signs of hypoxic seizure quite quickly with myoclonus. Epi given and cpr continued. Had response with Hr inc to 170s and cpr maintained and pulse check with good fast pulse. CPR held and bp obtained with SBP ~150s at that time. tele with her wct look, but appearing similar to prior with afib or flutter and allowing it to slowly equilibrate. She was still having some seizure dynamic despite good pulse with these and ativan 4mg given. Ogt placed. Seemed to be maintaining and then began slowing again with approaching bradycardia and cpr resumed with further epi. Not the same response however this acls round with epi. could not induce Hr increased. High level cpr utilized. given calcium chloride for potential membrane stabilization affect. Doubt this was associated directly with lopressor as she was able to initially respond to epi, however calcium may help here too. Of note we had held her usual bb had been held this am. We continued in these efforts without regaining a pulse. She remained with pea but occasional HR response to epi but nonperfusing. After considerable time she return to a wct with different complexes then previous with monomorphic VTACH appearance and attempted defib with 200J. Not to much avail. Epi rounds continued every 3mins during and yet could not sustain anything above a thready, nonperfusing pulse. My bedside us look revealed as previous described LVH, large R atrium, dil RV as well but no compression of left, with only fibrillation of electrical and not much mechanical activity at all; certainly not at a perfusion level. After multiple unsuccessful rounds of tx, unable to regain any perfusion, code was ultimately called off and pt was pronounced at 5:28pm. Son arrived shortly after and was updated. Phone message left for pts daughter. Disposition: ICU Code Status: Full Critical Care Time: 75min, including 60min code, but excluding procedure time. Jennifer Humphrey, DO
--- NOTE | 2017-08-04 18:10 | PN ---
Progress Note - Progress Note Date of Service: 08/04/17 Note: CRITICAL CARE MEDICINE PROCEDURE NOTE DATE: 08/04/17 TIME: 1620 SERVICE: Critical Care Medicine LOCATION OF PROCEDURE: ICU PROCEDURE: Endotracheal intubation PROCEDURALIST: Dr. Humphrey Consent obtain: Yes, d/w pt but procedure performed emergently INDICATION: Acute respiratory failure post liberation attempt, with component of upper airway compromise. PROCEDURE: (see code note for details) Oxygenation maintained and vitals monitored. Hr was up. Patient in 20 degree head elevation to supine position. Pre-medication with fentanyl 200mcg total and propofol 50mg total. Glidescope #3 inserted with Grade 1 view obtained. 7.5 endotracheal tube inserted to 23cm lip. Good chest rise with breath sounds appreciated in bilaterally lung funk. EtCO2 + color change. Portable chest x-ray pending. (see code note) No cxr performed as pt passed prior to cxr. Jennifer Humphrey, DO
--- NOTE | 2017-08-04 18:27 | DS ---
CRITICAL CARE MEDICINE DISCHARGE SUMMARY ADMISSION DATE: 08/02/17 ICU ADMISSION DATE: 08/02/17 ICU DISCHARGE DATE: 08/04/17 REFERRING PHYSICIAN: Frankie. DIAGNOSIS: 1. Acute hypoxic respiratory failure. 2. Acute pulmonary edema. 3. Acute on chronic end stage renal disease on hemodialysis. 4. Atrial fibrillation with rapid response. 5. History of left ventricular hypertrophy. 6. History of diastolic heart disease. 7. History of valvular heart disease. 8. History of aveolar hemorrhage. 9. Lactic acidosis on admission. HOSPITAL COURSE: 46 year old female with multiple co-morbidities, admitted with acute pulm edema leading to acute hypoxic respiratory failure secondary to acute on chronic end stage renal disease dependent on hemodialysis with volume overload needing emergent dialysis with hypoperfusion lactic acidosis on admission. Patient intubated in emergency department and underwent trial defibrillation due to rapid heart rate. She equilibrated with hemodialysis but remained with some residual lung water and she declined liberation from mecahncial ventilation the following day. This was acceptable as we discussed still have some atelectasis and lung water and perhaps some rest on the vent, with aprv use may benefit her and we can await next dialysis run and then look to liberate from there. She agreed. She was maintaining well and toleraing, undergoing dialysis on 08/04/17 with liberation from ventilator afterwards. Unfortunately she developed anxiety, tachycardia and upper respiratory compromised which moved us back to re-intubation. Unfortunately almost immediately after intubation she had bradycardic arrest and could not be revived after about almost 1 hour code (see code note). Pronounced at 5:28pm. DISPOSITION: . Jennifer Humphrey DO
[2017-08-04 19:02] VITALS: BP 134/59
== END 2017-08-04 17:28 | disposition expired | DRG 208 ==
LOC: ED 04:24 → ICU 07:10
PROVIDERS: ADMIT Internal Medicine; ATTEND Internal Medicine Critical Care Medicine
PROC: 5A1945Z Respiratory Ventilation, 24-96 Consecutive Hours (ICD-10-PCS; principal; 2017-08-02)
PROC: 0BH17EZ Insertion of Endotracheal Airway into Trachea, Via Natural or Artificial Opening (ICD-10-PCS; 2017-08-02)
PROC: 05HP33Z Insertion of Infusion Device into Right External Jugular Vein, Percutaneous Approach (ICD-10-PCS; 2017-08-02)
PROC: 5A1D70Z Performance of Urinary Filtration, Intermittent, Less than 6 Hours Per Day (ICD-10-PCS; 2017-08-02)
PROC: 4B02XTZ Measurement of Cardiac Defibrillator, External Approach (ICD-10-PCS; 2017-08-02)
PROC: 5A1D70Z Performance of Urinary Filtration, Intermittent, Less than 6 Hours Per Day (ICD-10-PCS; 2017-08-04)
PROC: 0BP1XDZ Removal of Intraluminal Device from Trachea, External Approach (ICD-10-PCS; 2017-08-04)
PROC: 0BH17EZ Insertion of Endotracheal Airway into Trachea, Via Natural or Artificial Opening (ICD-10-PCS; 2017-08-04)
DX: J81.0 Acute pulmonary edema (principal); I50.9 Heart failure, unspecified; I11.0 Hypertensive heart disease with heart failure; J96.01 Acute respiratory failure with hypoxia; E87.2 Acidosis; N18.6 End stage renal disease; R04.2 Hemoptysis; J44.9 Chronic obstructive pulmonary disease, unspecified; K21.9 Gastro-esophageal reflux disease without esophagitis; I25.10 Atherosclerotic heart disease of native coronary artery without angina pectoris; F41.9 Anxiety disorder, unspecified; F32.9 Major depressive disorder, single episode, unspecified; M19.90 Unspecified osteoarthritis, unspecified site; E78.00 Pure hypercholesterolemia, unspecified; I46.2 Cardiac arrest due to underlying cardiac condition; R00.1 Bradycardia, unspecified; I48.91 Unspecified atrial fibrillation; Z88.0 Allergy status to penicillin; Z88.8 Allergy status to other drugs, medicaments and biological substances; Z86.14 Personal history of Methicillin resistant Staphylococcus aureus infection; Z86.711 Personal history of pulmonary embolism; Z95.2 Presence of prosthetic heart valve; Z88.1 Allergy status to other antibiotic agents; Z86.718 Personal history of other venous thrombosis and embolism; I25.2 Old myocardial infarction; Z87.01 Personal history of pneumonia (recurrent); Z99.2 Dependence on renal dialysis; Z90.710 Acquired absence of both cervix and uterus; Z82.49 Family history of ischemic heart disease and other diseases of the circulatory system; Z83.3 Family history of diabetes mellitus; Z84.89 Family history of other specified conditions; Z80.1 Family history of malignant neoplasm of trachea, bronchus and lung; Z87.891 Personal history of nicotine dependence
CPT/HCPCS: 36415; 36600; 71045; 80048; 80053; 82140; 82803; 83605; 83735; 83880; 84100; 84484; 85025; 85027; 85610; 85730; 87040; 87077; 87150; 87186; 87205; 87502; 87641; 90935; 92950; 93005; 94002; 94003; 94760; 99285; A9270-GY; G0257; J0330; J0885; J1644; J2060; J2250; J2270; J2704; J3010; J3490